=== PATIENT | female | born 1960 | race African-American/Black ===

== ENCOUNTER 2016-06-13 18:31 | Inpatient (IN) | payer MEDICARE, OTHER ==
[~2016-06-13] VITALS: Ht 185.4 cm; Wt 190.5 kg
[~2016-06-13 18:31] MED LIST: ACETAMINOPHEN-1 EAC1 ORAL; ACETAMINOPHEN500 M5 PO; AMBIEN5 MG ORAL; ASCORBIC ACID500 MG ORAL; AUGMENTIN 875-1 EAC1 ORAL; BENAZEPRIL HCL20 MG ORAL; CEFEPIME-D1 GM/50 ML IVPB; CEFEPIME-D2 GM/50 ML IVPB; CIPROFLOXACIN500 M2 ORAL; CLINDAMYCIN HC150 MG ORAL; CLINDAMYCIN HC300 MG ORAL; COLACE100 MG ORAL; CYCLOBENZAPRINE10 MG ORAL; DILAUDID 22 MG/1 ML IVP; DILAUDID2 MG IVP; DOCUSATE SODIU100 MG ORAL; DOXYCYCLINE MO100 MG ORAL; FERROUS SULFAT325 M2 ORAL; FLAGYL500 MG ORAL; FUROSEMIDE20 M1 ORAL; HYDROCHLOROTHIA25 MG ORAL; HYDROCODON-ACE1 EA19 PO; HYDROMORPHO2 MG/1 M2 IV; IBUPROFEN600 MG ORAL; INVANZ1 GM IVPB; LEVAQUIN500 MG ORAL; MEROPENEM1 GM IV; METRONIDAZ500 MG/100 IVPB; MILK OF MA400 MG/51 ORAL; NORCO1 E1 ORAL; PERCOCET 5-3251 EACH ORAL; PROTONIX40 MG ORAL; SALINE 10ML FLU10 ML IVF; TYLENOL WITH C1 EAC2 ORAL; TYLENOL650 MG/20. ORAL; ULORIC40 MG ORAL; VANCO 1 GR1 GM/250 M IV; VANCOMYCIN1 GM IV; VANCOMYCIN1 GM IVPB; VANCOMYCIN1 GM/2001 IV; VANCOMYCIN1 GM/2502 IVPB; VICODIN 5-3001 EACH ORAL; VICODIN 5-5001 EACH PO; XARELTO10 MG ORAL; ZOFRAN 4 MG4 MG/2 ML IV; ZOSYN3.375 GM IVPB
[2016-06-13 18:58] VITALS: BP 118/83
[2016-06-13 20:08] VITALS: BP 113/79
[2016-06-13 21:34] LABS: BASOPHILS % (AUTO) 1.6 % (0.0-2.0); EOSINOPHILS % (AUTO) 0.3 % (0.0-3.0); LYMPHOCYTES % (AUTO) 16.4 % (20.0-45.0); MEAN CORPUSCULAR HEMOGLOBIN 25.8 PG (27.0-31.0); MEAN CORPUSCULAR HGB CONC 31.1 G/DL (32.0-36.0); MEAN CORPUSCULAR VOLUME 83 FL (80-99); MEAN PLATELET VOLUME 6.9 FL (6.5-10.1); MONOCYTES % (AUTO) 6.7 % (1.0-10.0); PLATELET COUNT 270 K/UL (150-450); RED BLOOD COUNT 4.46 M/UL (4.20-5.40); RED CELL DISTRIBUTION WIDTH 14.7 % (11.6-14.8); WHITE BLOOD COUNT 14.5 K/UL (4.8-10.8)
[2016-06-13 21:44] LABS: INR 1.1 (0.9-1.1); PROTHROMBIN TIME 11.3 SEC (9.30-11.50)
[2016-06-13 21:52] LABS: ALANINE AMINOTRANSFERASE 9 U/L (3-33); ANION GAP 15 (5-15); ASPARTATE AMINO TRANSFERASE 17 U/L (5-40); CARBON DIOXIDE 24 mEQ/L (20-30); CHLORIDE 95 mEQ/L (98-107); CREATININE 0.6 mg/dL (0.5-0.9); GLOMERULAR FILTRATION RATE > 60 mL/min (>60); SODIUM 134 mEQ/L (135-145); TOTAL PROTEIN 7.5 g/dL (6.6-8.7)
--- NOTE | 2016-06-13 21:52 | Emergency Room Report ---
History of Present Illness General Chief Complaint: Chest Pain Source: Patient Present Illness HPI 55 YO F with known history of DVT on Xarelto c/o left sided pleuritic "heavy" type chest pain radiating down left arm for 2 days. Denies fever/chills, cough , abd pain, SOB. Had CT for PE 2-3 years ago which she said was negative. Denies history of DM, HLD. Denies smoking, ETOH, drug use. Patient on 2 PO abx for left lower extremity cellulitis. Keflex and another one she cant remember name. Has daily VNS for wound dressing change of left lower leg. Denies weeping/pus from left foot. Allergies: Coded Allergies: SULFA (SULFONAMIDE ANTIBIOTICS) (Unverified Allergy, Unknown, 05/02/15) allergy history per Dr. Campbell Patient History Past Medical History: other - DVT Past Surgical History: none Pertinent Family History: none Social History: Denies: alcohol use, drug use, smoking Now: No Immunizations: UTD Reviewed Nursing Documentation: PMH: Agreed, PSxH: Agreed Nursing Documentation-PMH Hx Cardiac Problems: No - Bilat DVT Hx Hypertension: Yes Hx Asthma: Yes - Childhood Hx Cancer: No Hx Gastrointestinal Problems: Yes Hx Neurological Problems: No Review of Systems All Other Systems: negative except mentioned in HPI Physical Exam Vital Signs Date Time Temp Pulse Resp B/P Pulse Ox O2 Delivery O2 Flow Rate FiO2 06/13/16 18:37 97.5 84 15 118/83 98 Room Air Sp02 EP Interpretation: reviewed, normal General Appearance: normal inspection, well appearing, no apparent distress, alert, GCS 15, non-toxic, obese Head: normocephalic, atraumatic Eyes: bilateral eye EOMI, bilateral eye PERRL ENT: normal ENT inspection, hearing grossly normal, normal voice Neck: normal inspection, full range of motion, supple, no bony tend Respiratory: normal inspection, lungs clear, normal breath sounds, no respiratory distress, no retraction, no wheezing Cardiovascular #1: normal peripheral pulses, regular rate, rhythm, no edema Gastrointestinal: normal inspection, normal bowel sounds, non tender, soft, no guarding, no hernia Genitourinary: no CVA tenderness Musculoskeletal: normal inspection, back normal, normal range of motion, Stefan' s Sign negative, other - Bilateral lower extremities: Non pitting edema. No appreciable wamrth or swelling to feet/legs. No erythema. Neurologic: normal inspection, alert, oriented x3, responsive, director of recreation therapy III-XII nml as tested, motor strength/tone normal, speech normal Psychiatric: normal inspection, judgement/insight normal, mood/affect normal Skin: normal inspection, normal color, no rash Lymphatic: normal inspection Medical Decision Making Diagnostic Impression: Primary Impression: Chest pain Qualified Codes: R07.1 - Chest pain on breathing ER Course 55 YO F with pleuritic chest pain for 2 days. VSS. Afebrile. Not hypoxic ECG is NSR. No ischemia. Low suspicion for ACS but will check serial troponin Patient needs CTA to r/o PE however exceeds weight requirement of our CT Scanner per tech report to me Patient will have to be admitted for VQ scan. Will HOLD on empiric tx for PE with other AC since taking Xarelto Labs: Leuks 14k, possibly d/t cellulitis? INR 1.1 [address]rop[address] 0[address] Endorsed [address] Dr Marcus Montilla as ID consult for known cellulitis Dr Holguin to admit. Tele bed at 1038pm EKG Diagnostic Results Rate: normal Rhythm: NSR ST Segments: no acute changes ASA given to the pt in ED: No Rhythm Strip Diag. Results EP Interpretation: yes Rate: 87 Rhythm: NSR, no PVC's, no ectopy Chest X-Ray Diagnostic Results EP Interpretation: Yes Findings: no consolidation, no effusion, no pneumothorax, no acute cardiopulmonary disease Number of Views: 1 Last Vital Signs Date Time Temp Pulse Resp B/P Pulse Ox O2 Delivery O2 Flow Rate FiO2 06/13/16 20:08 98.4 77 15 113/79 98 Room Air Status: improved Disposition: ADMITTED INPATIENT Condition: Serious Referrals: DENISE CAMPBELL (PCP) NEELIMA YADAV M.D. Jun 13, 2016 21:52
[2016-06-13 21:53] LABS: ALBUMIN/GLOBULIN RATIO 0.8 (1.0-2.7); HEMOLYSIS 34
[2016-06-13 22:12] VITALS: BP 120/77
[2016-06-13 22:15] LABS: TROPONIN I < 0.30 ng/mL (<=0.30)
[2016-06-13 22:16] LABS: CKMB 2.5 ng/mL (< 3.8)
[2016-06-13 23:50] VITALS: BP 98/65
[2016-06-14 01:46] VITALS: BP 107/65
[2016-06-14 04:00] VITALS: BP 105/67
[2016-06-14 08:13] VITALS: BP 134/63
--- NOTE | 2016-06-14 11:07 | History & Physical ---
History and Physical History & Physicial Dictated for Int Med no. [id number]. JO SCHMID Jun 14, 2016 11:07
[2016-06-14 12:00] VITALS: BP 135/73
[2016-06-14] MEDS: metroNIDAZOLE 500mg tab ORAL SCH ×2 (13:21→22:13)
[2016-06-14] MEDS ORDERED: Vancomycin 2gm/D5W 550ml IVPB ONE ×2 (14:00)
[2016-06-14 14:13] LABS: BASOPHILS % (AUTO) 1.1 % (0.0-2.0); EOSINOPHILS % (AUTO) 0.7 % (0.0-3.0); LYMPHOCYTES % (AUTO) 18.1 % (20.0-45.0); MEAN CORPUSCULAR HEMOGLOBIN 25.2 PG (27.0-31.0); MEAN CORPUSCULAR HGB CONC 30.9 G/DL (32.0-36.0); MEAN CORPUSCULAR VOLUME 82 FL (80-99); MEAN PLATELET VOLUME 7.3 FL (6.5-10.1); NEUTROPHILS % (AUTO) 73.1 % (45.0-75.0); PLATELET COUNT 279 K/UL (150-450); RED BLOOD COUNT 4.49 M/UL (4.20-5.40); RED CELL DISTRIBUTION WIDTH 14.6 % (11.6-14.8); WHITE BLOOD COUNT 10.7 K/UL (4.8-10.8)
--- NOTE | 2016-06-14 14:17 | Cardiology Report ---
APPROVED REPORT EKG Measurement Heart [id number] Normal sinus rhythm Normal ECG
[2016-06-14 14:35] LABS: ALANINE AMINOTRANSFERASE 9 U/L (3-33); ALBUMIN/GLOBULIN RATIO 0.9 (1.0-2.7); ANION GAP 13 (5-15); ASPARTATE AMINO TRANSFERASE 15 U/L (5-40); CALCIUM 9.2 mg/dL (8.6-10.2); CARBON DIOXIDE 28 mEQ/L (20-30); CHLORIDE 96 mEQ/L (98-107); CREATININE 0.7 mg/dL (0.5-0.9); GLOMERULAR FILTRATION RATE > 60 mL/min (>60); HEMOLYSIS 3; POTASSIUM 3.7 mEQ/L (3.4-4.9); SODIUM 137 mEQ/L (135-145); TOTAL PROTEIN 7.3 g/dL (6.6-8.7)
[2016-06-14 14:57] LABS: INR 1.1 (0.9-1.1); PROTHROMBIN TIME 10.9 SEC (9.30-11.50)
[2016-06-14 16:00] VITALS: BP 110/76
--- NOTE | 2016-06-14 18:37 | History and Physical Report ---
DATE OF ADMISSION: 06/13/2016 CHIEF COMPLAINT: The patient is a 55-year-old, -[place]i female who presented with a chief complaint of chest pain. HISTORY OF PRESENT ILLNESS: One and half days prior to admission, the patient states she began to have substernal chest pain. Chest pain has been constant. The patient states it is sharp. The patient states it now radiates to the left shoulder and to the left back. The patient presented to [facility] emergency room. The patient was admitted for chest pain to rule out acute coronary syndrome. Of note, the patient has a history of chronic cellulitis to bilateral lower extremities. The patient was on Levaquin recently. The patient states she finished Levaquin about three days ago. The patient complains of continued pain and swelling of the left leg. The patient is also admitted for cellulitis of the left leg. REVIEW OF SYSTEMS: Constitutional: The patient denies weight loss or weight gain. The patient denies fevers or chills. HEENT: The patient denies ear or throat pain. The patient denies headache. Cardiovascular: The patient complains of chest pain as above. The patient denies palpitations. Chest: The patient denies wheezes or shortness of breath. Abdominal: The patient denies nausea, vomiting, diarrhea, or constipation. Genitourinary: The patient denies dysuria or increased frequency of urination. Neuromuscular: The patient complains of chest pain as above. The patient denies generalized weakness or seizures. PAST MEDICAL HISTORY: Significant for, 1. Hypertension. 2. Bilateral lower extremity deep venous thrombosis, on Xarelto. 3. Chronic pain syndrome. 4. History of leg cellulitis as above. PAST SURGICAL HISTORY: The patient denies. CURRENT MEDICATIONS: 1. Tylenol No. 3 one tablet p.o. q.4 h. p.r.n. 2. Benazepril 20 mg one tablet p.o. daily. 3. Uloric 40 mg one tablet p.o. daily. 4. Lasix 20 mg one tablet p.o. daily. 5. Hydrochlorothiazide 25 mg one tablet p.o. daily. 6. Xarelto 20 mg one tablet p.o. daily. ALLERGIES: Sulfa. SOCIAL HISTORY: The patient is . The patient lives alone. The patient denies tobacco or alcohol use. The patient is disabled. PHYSICAL EXAMINATION: VITAL SIGNS: Temperature 97.7 degrees, pulse 89, blood pressure 105/67, and respirations 16. GENERAL: The patient is obese, well-developed, well-nourished, -Israeli female, in no apparent distress. HEENT: Eyes, pupils are equal and responsive to light and accommodation. Extraocular movements are intact. NECK: Supple without lymphadenopathy. CHEST: Lungs are clear to auscultation bilaterally without wheezes or rales. CARDIOVASCULAR: Regular rhythm and rate. S1 and S2 normal without murmurs, rubs, or gallops. ABDOMEN: Soft, nontender, and nondistended. Positive bowel sounds. No evidence of hepatosplenomegaly. Currently, no rebound or guarding noted. EXTREMITIES: Presence of excoriations on the left lateral calf. The left calf is swollen when compared to the right. There is trace edema on the left calf when compared to the right. RECTAL: Refused. GENITAL: Refused. NEUROLOGICAL: Cranial nerves II through XII are grossly intact without focal deficits. Motor strength is 5/5 bilaterally. Deep tendon reflexes are 2+ plantar. LABORATORY DATA: WBC elevated at 14.5, hemoglobin 11.5, hematocrit 37.0, and platelets 270,000. Sodium 134, potassium 4.0, chloride 95, CO2 24, BUN 10, creatinine 0.6, and glucose 88. A chest x-ray is pending. A V/Q scan is pending to rule out pulmonary embolism. ASSESSMENT: This is a 55-year-old, -Israeli female. 1. Chest pain. 2. Left leg cellulitis. 3. Hypertension. 4. Deep venous thrombosis of the left leg. 5. Chronic pain syndrome. 6. Obesity. 7. Leukocytosis. TREATMENT: 1. Chest pain. A Cardiology consultation is pending with Dr. Vladislav Kennedy. A Cardiolite stress test is pending. Serial troponin level will be done. Chest pain is concerning for acute coronary syndrome versus pulmonary embolism. Await V/Q scan and Cardiolite stress test at above. 2. Left leg cellulitis. An Infectious Disease consultation is pending with Dr. Javed. We will follow recommendations of Dr. Javed. The patient has recently been on Levaquin orally. The patient will need to be on a different antibiotic for left leg cellulitis. We will follow recommendations of Infectious Disease. 3. Hypertension. Continue benazepril, hydrochlorothiazide, and Lasix as above. 4. Deep venous thrombosis of the left leg. Continue Xarelto as above. 5. Chronic pain syndrome. The patient is currently receiving intravenous Dilaudid for pain. 6. Obesity. 7. Leukocytosis, probably secondary to cellulitis above. Trever Holguin M.D. DR: LEELEE JOB#: [id number] CC:
--- NOTE | 2016-06-14 19:44 | Cardiology Progress Note ---
Assessment/Plan Assessment/Plan The patient is seen and examined, full consult note will be dictated. Objective Last 24 Hour Vital Signs Date Time Temp Pulse Resp B/P Pulse Ox O2 Delivery O2 Flow Rate FiO2 06/14/16 16:00 97.7 78 18 110/76 98 Room Air 06/14/16 14:20 97.0 06/14/16 12:00 97.0 75 20 135/73 99 Room Air 06/14/16 08:13 97.5 80 20 134/63 95 Room Air 06/14/16 08:00 62 06/14/16 04:00 97.7 89 16 105/67 97 Room Air 06/14/16 02:30 81 16 108/65 100 Room Air 06/14/16 01:46 98.2 81 16 107/65 100 Room Air 06/13/16 23:50 98.2 81 15 98/65 100 Room Air 06/13/16 22:12 98.0 80 18 120/77 99 Room Air 06/13/16 20:08 98.4 77 15 113/79 98 Room Air Intake and Output 06/13/16 06/14/16 18:59 06:59 Intake Total 0 ml Output Total 400 ml Balance 0 ml -400 ml Intake Oral 0 ml Output Urine Total 400 ml # Voids 1 Laboratory Tests Test 06/13/16 21:13 06/14/16 13:50 06/14/16 14:00 White Blood Count 14.5 K/UL (4.8-10.8) H 10.7 K/UL (4.8-10.8) Red Blood Count 4.46 M/UL (4.20-5.40) 4.49 M/UL (4.20-5.40) Hemoglobin 11.5 G/DL (12.0-16.0) L 11.3 G/DL (12.0-16.0) L Hematocrit 37.0 % (37.0-47.0) 36.6 % (37.0-47.0) L Mean Corpuscular Volume 83 FL (80-99) 82 FL (80-99) Mean Corpuscular Hemoglobin 25.8 PG (27.0-31.0) L 25.2 PG (27.0-31.0) L Mean Corpuscular Hemoglobin Concent 31.1 G/DL (32.0-36.0) L 30.9 G/DL (32.0-36.0) L Red Cell Distribution Width 14.7 % (11.6-14.8) 14.6 % (11.6-14.8) Platelet Count 270 K/UL (150-450) 279 K/UL (150-450) Mean Platelet Volume 6.9 FL (6.5-10.1) 7.3 FL (6.5-10.1) Neutrophils (%) (Auto) 75.0 % (45.0-75.0) 73.1 % (45.0-75.0) Lymphocytes (%) (Auto) 16.4 % (20.0-45.0) L 18.1 % (20.0-45.0) L Monocytes (%) (Auto) 6.7 % (1.0-10.0) 7.0 % (1.0-10.0) Eosinophils (%) (Auto) 0.3 % (0.0-3.0) 0.7 % (0.0-3.0) Basophils (%) (Auto) 1.6 % (0.0-2.0) 1.1 % (0.0-2.0) Prothrombin Time 11.3 SEC (9.30-11.50) 10.9 SEC (9.30-11.50) Prothromb Time International Ratio 1.1 (0.9-1.1) 1.1 (0.9-1.1) Activated Partial Thromboplast Time 29 SEC (23-33) Sodium Level 134 mEQ/L (135-145) L 137 mEQ/L (135-145) Potassium Level 4.0 mEQ/L (3.4-4.9) 3.7 mEQ/L (3.4-4.9) Chloride Level 95 mEQ/L (98-107) L 96 mEQ/L (98-107) L Carbon Dioxide Level 24 mEQ/L (20-30) 28 mEQ/L (20-30) Anion Gap 15 (5-15) 13 (5-15) Blood Urea Nitrogen 10 mg/dL (7-23) 10 mg/dL (7-23) Creatinine 0.6 mg/dL (0.5-0.9) 0.7 mg/dL (0.5-0.9) Estimat Glomerular Filtration Rate > 60 mL/min (>60) > 60 mL/min (>60) Glucose Level 88 mg/dL (74-106) 111 mg/dL (74-106) H Calcium Level 9.0 mg/dL (8.6-10.2) 9.2 mg/dL (8.6-10.2) Total Bilirubin 0.3 mg/dL (0.0-1.2) 0.3 mg/dL (0.0-1.2) Aspartate Amino Transf (AST/SGOT) 17 U/L (5-40) 15 U/L (5-40) Alanine Aminotransferase (ALT/SGPT) 9 U/L (3-33) 9 U/L (3-33) Alkaline Phosphatase 60 U/L (35-104) 64 U/L (35-104) Total Creatine Kinase 205 U/L (26-140) H Creatine Kinase MB 2.5 ng/mL (< 3.8) Creatine Kinase MB Relative Index 1.2 Troponin I < 0.30 ng/mL (<=0.30) Total Protein 7.5 g/dL (6.6-8.7) 7.3 g/dL (6.6-8.7) Albumin 3.5 g/dL (3.5-5.2) 3.5 g/dL (3.5-5.2) Globulin 4.0 g/dL 3.8 g/dL Albumin/Globulin Ratio 0.8 (1.0-2.7) L 0.9 (1.0-2.7) L LALO WILL Jun 14, 2016 19:44
[2016-06-14 20:00] VITALS: BP 90/45
--- NOTE | 2016-06-14 22:13 | Infectious Diseases Prog Note ---
Assessment/Plan Assessment/Plan Full consult dictated: A) 1) left leg cellulitis - hx of gram negative, r/o mrsa, r/o strep 2) leukocytosis, ? c.diff., no diarrhea 3) pleuritic chest pain - ? cap, ? PE, ? coronary disease 4) obesity, dm, allergies - sulfa, pain mgt, hx dvt P) 1) vancomycin, cefepime and flagyl 2) check labs, c.diff. if has diarrhea 3) check chest x-ray 4) further w/u and treatment per Dr. Holguin 5) thank you Subjective Allergies: Coded Allergies: SULFA (SULFONAMIDE ANTIBIOTICS) (Unverified Allergy, Unknown, 05/02/15) allergy history per Dr. Jones Objective Vital Signs Last 24 Hour Vital Signs Date Time Temp Pulse Resp B/P Pulse Ox O2 Delivery O2 Flow Rate FiO2 06/14/16 20:00 97.7 81 18 90/45 99 Room Air 06/14/16 16:00 97.7 78 18 110/76 98 Room Air 06/14/16 14:20 97.0 06/14/16 12:00 97.0 75 20 135/73 99 Room Air 06/14/16 08:13 97.5 80 20 134/63 95 Room Air 06/14/16 08:00 62 06/14/16 04:00 97.7 89 16 105/67 97 Room Air 06/14/16 02:30 81 16 108/65 100 Room Air 06/14/16 01:46 98.2 81 16 107/65 100 Room Air 06/13/16 23:50 98.2 81 15 98/65 100 Room Air 06/13/16 22:12 98.0 80 18 120/77 99 Room Air Height (Feet): 6 Height (Inches): 1.00 Weight (Pounds): 420 Laboratory Tests Test 06/14/16 13:50 06/14/16 14:00 White Blood Count 10.7 K/UL (4.8-10.8) Red Blood Count 4.49 M/UL (4.20-5.40) Hemoglobin 11.3 G/DL (12.0-16.0) L Hematocrit 36.6 % (37.0-47.0) L Mean Corpuscular Volume 82 FL (80-99) Mean Corpuscular Hemoglobin 25.2 PG (27.0-31.0) L Mean Corpuscular Hemoglobin Concent 30.9 G/DL (32.0-36.0) L Red Cell Distribution Width 14.6 % (11.6-14.8) Platelet Count 279 K/UL (150-450) Mean Platelet Volume 7.3 FL (6.5-10.1) Neutrophils (%) (Auto) 73.1 % (45.0-75.0) Lymphocytes (%) (Auto) 18.1 % (20.0-45.0) L Monocytes (%) (Auto) 7.0 % (1.0-10.0) Eosinophils (%) (Auto) 0.7 % (0.0-3.0) Basophils (%) (Auto) 1.1 % (0.0-2.0) Sodium Level 137 mEQ/L (135-145) Potassium Level 3.7 mEQ/L (3.4-4.9) Chloride Level 96 mEQ/L (98-107) L Carbon Dioxide Level 28 mEQ/L (20-30) Anion Gap 13 (5-15) Blood Urea Nitrogen 10 mg/dL (7-23) Creatinine 0.7 mg/dL (0.5-0.9) Estimat Glomerular Filtration Rate > 60 mL/min (>60) Glucose Level 111 mg/dL (74-106) H Calcium Level 9.2 mg/dL (8.6-10.2) Total Bilirubin 0.3 mg/dL (0.0-1.2) Aspartate Amino Transf (AST/SGOT) 15 U/L (5-40) Alanine Aminotransferase (ALT/SGPT) 9 U/L (3-33) Alkaline Phosphatase 64 U/L (35-104) Total Protein 7.3 g/dL (6.6-8.7) Albumin 3.5 g/dL (3.5-5.2) Globulin 3.8 g/dL Albumin/Globulin Ratio 0.9 (1.0-2.7) L Prothrombin Time 10.9 SEC (9.30-11.50) Prothromb Time International Ratio 1.1 (0.9-1.1) Current Medications Medications (Trade) Dose Ordered Sig/Key Route PRN Reason Start Time Stop Time Status Last Admin Dose Admin Benazepril HCl (Lotensin) 20 mg DAILY ORAL 2/2/17 09:00 07/15/16 08:59 Cefepime HCl/ Dextrose (Maxipime/D5W) 50 ml @ 100 mls/hr Q12HR@0100,1300 IVPB 06/14/16 13:00 06/21/16 12:59 06/14/16 13:21 Dextrose (Dextrose 50%) STAT PRN IV Hypoglycemia 06/14/16 04:15 07/14/16 04:14 Furosemide (Lasix) 20 mg DAILY ORAL 06/15/16 09:00 07/15/16 08:59 Hydromorphone HCl (Dilaudid) 2 mg Q4H PRN IVP Severe Pain (Pain Scale 7-10) 06/14/16 05:15 06/21/16 05:14 06/14/16 13:22 Metronidazole 500 mg 500 mg EVERY 8 HOURS ORAL 06/14/16 12:00 06/21/16 11:59 06/14/16 13:21 Non-Formulary Medication (Non-Formulary Med) 1 ea DAILY ORAL 06/15/16 09:00 07/15/16 08:59 UNV Rivaroxaban 20 mg 20 mg DAILY ORAL 06/15/16 09:00 07/15/16 08:59 Vancomycin HCl (Vanco rx to dose) 1 ea DAILY PRN MISC Per rx protocol 06/14/16 11:15 07/14/16 11:14 Vancomycin HCl/ Dextrose (Vancomycin/D5W) 325 ml @ 162.5 mls/ hr Q12HR@0200,1400 IVPB 06/15/16 02:00 06/20/16 01:59 ASTER HACKETT Jun 14, 2016 22:13
[2016-06-15] MEDS: Vancomycin 1.5 GM in D5W 325 ML IVPB SCH ×2 (03:27→14:48)
--- NOTE | 2016-06-15 05:57 | Consultation ---
DATE OF CONSULTATION: 06/14/2016 CARDIOLOGY CONSULTATION REFERRING PHYSICIAN: Trever Holguin M.D. REASON FOR CONSULTATION: Management of chest pain. HISTORY OF PRESENT ILLNESS: This patient is a very unfortunate 55-year-old, morbidly obese, -[place] female, who presents to the hospital with complaints of chest pain in the left precordial area, described as pleuritic, worse with inspiration, at times sharp and at times pressure-like radiating down to the left arm, but no nausea or vomiting and shortness of breath. No diaphoresis. The patient has been having pain for the past few days. Baseline initial evaluation in the emergency department included blood pressure of 118/93 mmHg and heart rate of 84. A 12-lead electrocardiogram with normal sinus rhythm with no evidence of ST and T-wave abnormalities. The patient was admitted to telemetry for further evaluation and management. PAST MEDICAL HISTORY: 1. DVT. 2. Hypertension. 3. Chronic pain syndrome. 4. History of leg cellulitis. PAST SURGICAL HISTORY: None. MEDICATIONS: 1. Tylenol No. 3 one tablet p.o. q. 4h. p.r.n. pain. 2. Benazepril 20 mg p.o. daily. 3. Uloric 40 mg p.o. daily. 4. Lasix 20 mg p.o. daily. 5. Hydrochlorothiazide 25 mg p.o. daily. 6. Xarelto 20 mg p.o. daily. REVIEW OF SYSTEMS: HEENT: Denies any headache, diplopia, or blurred vision. Constitutional: Denies any fever, chills, weight loss, night sweats, or weight gain. Cardiovascular: Complains of chest pain as mentioned above. Denies any PND, orthopnea, leg swelling, or palpitations. Pulmonary: Denies any cough, hemoptysis, or wheezing. Gastrointestinal: Denies any nausea, vomiting, diarrhea, constipation, abdominal pain, or GI bleed. Genitourinary: Denies any hematuria, dysuria, or incontinence. Neurology: Denies any motor dysfunction, sensory deficit, or altered speech. ALLERGIES: Sulfa. SOCIAL HISTORY: She is and lives alone. Denies any tobacco, alcohol, or illicit drug use. She is disabled. PHYSICAL EXAMINATION: VITAL SIGNS: Blood pressure was 105/67, respirations 16, pulse of 89, temperature 97.7 degrees of Fahrenheit. GENERAL: The patient is a very unfortunate 55-year-old female, who is comfortable in no apparent respiratory distress. HEENT: Atraumatic and normocephalic. Anicteric. Pupils are equal, round, and reactive to light and accommodation. Extraocular muscles are intact. NECK: JVP cannot be evaluated. Bilateral carotid upstrokes 2+. No carotid bruit. LUNGS: Clear to auscultation bilaterally. CVS: Normal S1 and S2. Regular rate and rhythm. No murmurs, gallops, or rubs. PMI is at fourth intercostal space at left midclavicular line. ABDOMEN: Soft, nontender, and nondistended. No hepatosplenomegaly. Positive bowel sounds. EXTREMITIES: There is swelling of the left calf with competitive running. edema on the left calf was also noticed. LABORATORY DATA: WBC was 14.5, hemoglobin 11.5, hematocrit 37.0, and platelet count 270,000. Sodium 134, potassium is 4.0, chloride 95, bicarbonate 24, BUN of 10, creatinine 0.6, glucose is 88, and calcium is 9.0. Troponin I less than 0.3. X-RAY: Chest x-ray not available at this time. A 2D echocardiography from 12/02/2015 shows normal LV systolic function with LVEF of 55%. IVC of 1.9. Mild tricuspid regurgitation with mild pulmonary hypertension and right ventricular systolic pressure at 40 mmHg. ASSESSMENT AND PLAN: The patient is a very unfortunate 55-year-old female, who is seen in Cardiology consultation at the request of Dr. Holguin. 1. Atypical chest pain. Her risk factors for coronary artery disease are hypertension and diabetes. We will speak to the patient in terms of the future exercise stress test. 2. Chest pain. A 12-lead electrocardiogram shows no evidence of ST and T-wave abnormalities. over the patient's risk factors, we will discuss with the nuclear medicine department as far as the weight limit for . If approved, we will proceed with Persantine Cardiolite study to rule out obstructive coronary artery disease. 3. History of diabetes mellitus. 4. History of hypertension. 5. Deep venous thrombosis, on Xarelto. I would like to thank Dr. Holguin for allowing me to participate in the care of this patient. Vladislav Kennedy M.D. DR: ALLISON JOB#: [id number] CC:
[2016-06-15] MEDS: metroNIDAZOLE 500mg tab ORAL SCH ×3 (06:23→22:24)
--- NOTE | 2016-06-15 08:17 | Diagnostic Imaging Report ---
Indication: PAIN Technique: One view of the chest Comparison: 01/05/2016 Findings: Body habitus limits evaluation. Lungs and pleural spaces are clear. Heart size is normal. No significant change Impression: No acute process
[2016-06-15 08:36] VITALS: BP 133/68
[2016-06-15] MEDS: Benazepril 10mg tab ORAL SCH (09:03)
[2016-06-15] MEDS: Xarelto 10mg tab ORAL SCH (09:03)
[2016-06-15 10:09] LABS: BASOPHILS % (AUTO) 0.9 % (0.0-2.0); EOSINOPHILS % (AUTO) 1.6 % (0.0-3.0); LYMPHOCYTES % (AUTO) 13.5 % (20.0-45.0); MEAN CORPUSCULAR HEMOGLOBIN 25.6 PG (27.0-31.0); MEAN CORPUSCULAR HGB CONC 31.3 G/DL (32.0-36.0); MEAN CORPUSCULAR VOLUME 82 FL (80-99); MEAN PLATELET VOLUME 7.4 FL (6.5-10.1); PLATELET COUNT 252 K/UL (150-450); RED BLOOD COUNT 4.36 M/UL (4.20-5.40); RED CELL DISTRIBUTION WIDTH 14.7 % (11.6-14.8); WHITE BLOOD COUNT 9.7 K/UL (4.8-10.8)
[2016-06-15 10:26] LABS: TROPONIN I < 0.30 ng/mL (<=0.30)
--- NOTE | 2016-06-15 10:48 | Consultation ---
DATE OF CONSULTATION: INFECTIOUS DISEASE CONSULTATION: ATTENDING PHYSICIAN: Trever Holguin M.D. HISTORY OF PRESENT ILLNESS: This is a 55-year-old female who comes into [facility] with left leg cellulitis. The patient also had pleuritic chest pain and has been worked up by Cardiology for acute coronary syndrome. The patient also has been worked up for pulmonary embolism for the history of DVT with V/Q scan. Infectious Disease consultation was requested for further antibiotic management. This patient with left leg cellulitis and also leukocytosis. The patient has history of . She also has risk for C. diff. She does not have any significant diarrhea at this time. Case was communicated with ER physician yesterday and discussed with Dr. Holguin. MAR was noted. Orders were noted. Notes were reviewed. The patient requested antibiotics pending workup. PAST MEDICAL HISTORY: The patient has a past medical history of DVT of lower extremities, history of recurrent cellulitis including gram-negative cellulitis and the patient risk for MRSA cellulitis. She has history of hypertension. She has history of chronic pain syndrome. No history of diabetes. She has history of obesity. Please see past medical in medical order. MEDICATIONS: Upon reviewing the MAR, the patient on the following medications. She is on Lotensin and benazepril. She is on furosemide, Lasix, Xarelto, vancomycin, cefepime, and Flagyl. She is on high dose of Dilaudid. Please see medication in medical order. ALLERGIES: Include sulfa. SOCIAL HISTORY: Negative for smoking, alcohol, or drug abuse. FAMILY HISTORY: Noncontributory . REVIEW OF SYSTEMS: See HPI for review of systems. Constitutional: She has generalized fatigue and weakness. No fever, chills, night sweats, or weight loss . Head And Neck: No thrush, dysphagia, sinus tenderness. Cardiac: She does have pleuritic chest pain. GI: No nausea, vomiting, or diarrhea. : No dysuria or frequency. Pulmonary: No significant shortness of breath, cough, or sputum production. Skin: No rash or itching. Extremities: Left foot pain and swelling. Neurologic: No seizures. PHYSICAL EXAMINATION: VITAL SIGNS: Temperature 97.7 degrees, pulse rate 81, respiratory rate 18, blood pressure 90/45, and saturation 99%. GENERAL: Alert, responsive, and oriented x3, in no acute distress. HEENT: Head and Neck: Oral exam, no thrush. Eye exam, no icterus. Neck is supple. No JVD. No sinus tenderness. Normocephalic. No facial droop. No neck stiffness. HEART: Regular. No gallop or murmur. No friction or rub. LUNGS: Clear bilaterally. No rhonchi or rales. ABDOMEN: Soft. Positive bowel sounds. Nontender. SKIN: No rash or dermatitis. MUSCULOSKELETAL: No evidence of . EXTREMITIES: Lower extremity exam, she has pain versus the right leg. PERIPHERAL VASCULAR: No cyanosis or gangrene. RECTAL: Deferred. PELVIC: Deferred. GENITOURINARY: No Shah. LINE: Line site is without phlebitis. NEUROLOGIC: Intact and nonfocal. Alert and oriented x3. LABORATORY AND DIAGNOSTIC DATA: As follows: White count on admission 14.5 and hemoglobin 11.5. Creatinine is 0.7. Chest x-ray is pending. V/Q scan is pending ER doctor, the chest x-ray is negative. ASSESSMENT AND PLAN: 1. The patient who has left leg cellulitis with leukocytosis. The patient was placed on vancomycin , cefepime, and Flagyl. She also risk for Clostridium difficile for which she has had recent multiple antibiotics cultures for cellulitis for left foot. Continue vancomycin, cefepime, and Flagyl. Check Clostridium difficile. The patient has diarrhea. Also check just to make sure she does not have something like community-acquired pneumonia for pleuritic chest pain. Continue antibiotics Flagyl and check . 2. Pleuritic chest pain workup per Cardiology rule out coronary syndrome. Acute coronary syndrome also rule out. Pulmonary embolism history of lower extremity deep venous thrombosis. 3. Chronic lower extremity deep venous thrombosis. 4. Hypertension. 5. Obesity. 6. Chronic pain syndrome. 7. History of cellulitis gram-negative cellulitis . 8. The patient has anemia . 9. Blood pressure control per primary for hypertension. 10. Allergies to sulfa . 11. Social history is negative. 12. Case discussed with Dr. Holguin. 13. Case discussed with ER physician. 14. Case discussed with the patient . 15. Case discussed with RN. 16. Notes and records were reviewed. Thank you. I will follow. Slim Javed M.D. DR: Marie JOB#: [id number] CC:
[2016-06-15 10:55] LABS: ANION GAP 13 (5-15); CALCIUM 8.6 mg/dL (8.6-10.2); CARBON DIOXIDE 29 mEQ/L (20-30); CHLORIDE 94 mEQ/L (98-107); CREATININE 0.7 mg/dL (0.5-0.9); GLOMERULAR FILTRATION RATE > 60 mL/min (>60); HEMOLYSIS 4; POTASSIUM 3.8 mEQ/L (3.4-4.9); SODIUM 136 mEQ/L (135-145)
--- NOTE | 2016-06-15 11:47 | Diagnostic Imaging Report ---
Indications: Shortness of breath Technique: Portable AP chest Findings: Comparison: 06/13/16 Poor image quality limits evaluation. Cardiac silhouette remains normal in size. Pulmonary vasculature remains within normal limits. Lungs and pleura remain clear. Right upper rib cage deformity again noted. IMPRESSION: No evidence of acute disease, limited as described, unchanged Stable chronic changes as described
[2016-06-15 12:11] VITALS: BP 115/56
[2016-06-15 16:00] VITALS: BP 105/44
--- NOTE | 2016-06-15 18:32 | Cardiology Progress Note ---
Assessment/Plan Assessment/Plan 1. Atypical chest pain, non-ischemic dobutamine stress echo with normal baseline LVEF. 2. Morbid obesity. 3. Hypertension. 4. Bilateral lower extremity deep venous thrombosis, on Xarelto. 5. Chronic pain syndrome. 6. History of leg cellulitis Subjective Subjective Sinus rhythm at 79. Dobutamine stress echo today showed no evidence of myocardial wall ischemia. Objective Last 24 Hour Vital Signs Date Time Temp Pulse Resp B/P Pulse Ox O2 Delivery O2 Flow Rate FiO2 06/15/16 16:00 97.7 81 20 105/44 96 Room Air 06/15/16 12:11 97.0 83 20 115/56 97 Room Air 06/15/16 12:00 121 06/15/16 09:03 133/68 06/15/16 08:36 97.3 80 20 133/68 99 Room Air 06/15/16 08:00 130 06/15/16 04:00 71 06/15/16 00:00 84 06/14/16 22:47 97.7 06/14/16 20:00 97.7 81 18 90/45 99 Room Air 06/14/16 20:00 78 Intake and Output 06/14/16 06/15/16 19:00 07:00 Intake Total 540 ml Balance 540 ml Intake Oral 490 ml IV Total 50 ml # Voids 1 4 2D Echo: LVEF 55%, Mild LVH, RA/RV enlargement, RVSP 49 mmHg, IVC 2.1 cm Laboratory Tests Test 06/15/16 09:50 White Blood Count 9.7 K/UL (4.8-10.8) Red Blood Count 4.36 M/UL (4.20-5.40) Hemoglobin 11.1 G/DL (12.0-16.0) L Hematocrit 35.6 % (37.0-47.0) L Mean Corpuscular Volume 82 FL (80-99) Mean Corpuscular Hemoglobin 25.6 PG (27.0-31.0) L Mean Corpuscular Hemoglobin Concent 31.3 G/DL (32.0-36.0) L Red Cell Distribution Width 14.7 % (11.6-14.8) Platelet Count 252 K/UL (150-450) Mean Platelet Volume 7.4 FL (6.5-10.1) Neutrophils (%) (Auto) 77.0 % (45.0-75.0) H Lymphocytes (%) (Auto) 13.5 % (20.0-45.0) L Monocytes (%) (Auto) 7.0 % (1.0-10.0) Eosinophils (%) (Auto) 1.6 % (0.0-3.0) Basophils (%) (Auto) 0.9 % (0.0-2.0) Sodium Level 136 mEQ/L (135-145) Potassium Level 3.8 mEQ/L (3.4-4.9) Chloride Level 94 mEQ/L (98-107) L Carbon Dioxide Level 29 mEQ/L (20-30) Anion Gap 13 (5-15) Blood Urea Nitrogen 12 mg/dL (7-23) Creatinine 0.7 mg/dL (0.5-0.9) Estimat Glomerular Filtration Rate > 60 mL/min (>60) Glucose Level 126 mg/dL (74-106) H Calcium Level 8.6 mg/dL (8.6-10.2) Troponin I < 0.30 ng/mL (<=0.30) Objective GENERAL: The patient is a very unfortunate 55-year-old female, who is comfortable in no apparent respiratory distress. HEENT: Atraumatic and normocephalic. Anicteric. Pupils are equal, round, and reactive to light and accommodation. Extraocular muscles are intact. NECK: JVP cannot be evaluated. Bilateral carotid upstrokes 2+. No carotid bruit. LUNGS: Clear to auscultation bilaterally. CVS: Normal S1 and S2. Regular rate and rhythm. No murmurs, gallops, or rubs. PMI is at fourth intercostal space at left midclavicular line. ABDOMEN: Soft, nontender, and nondistended. No hepatosplenomegaly. Positive bowel sounds. EXTREMITIES: 1+edema B/L, chronic venous stasis, no clubbing or cyanosis. LAOL WILL Jun 15, 2016 18:32
--- NOTE | 2016-06-15 18:56 | Internal Med Progress Note ---
Subjective Date of Service: Jun 15, 2016 Physician Name Trever Schmid Attending Physician Trever Schmid Current Medications Medications (Trade) Dose Ordered Sig/Key Route PRN Reason Start Time Stop Time Status Last Admin Dose Admin Benazepril HCl (Lotensin) 20 mg DAILY ORAL 06/15/16 09:00 07/15/16 08:59 06/15/16 09:03 Cefepime HCl/ Dextrose (Maxipime/D5W) 50 ml @ 100 mls/hr Q12HR@0100,1300 IVPB 06/14/16 13:00 06/21/16 12:59 06/15/16 02:08 Dextrose (Dextrose 50%) STAT PRN IV Hypoglycemia 06/14/16 04:15 07/14/16 04:14 Furosemide (Lasix) 20 mg DAILY ORAL 06/15/16 09:00 07/15/16 08:59 06/15/16 09:03 Hydromorphone HCl (Dilaudid) 2 mg Q4H PRN IVP Severe Pain (Pain Scale 7-10) 06/14/16 05:15 06/21/16 05:14 06/15/16 13:24 Metronidazole 500 mg 500 mg EVERY 8 HOURS ORAL 06/14/16 12:00 06/21/16 11:59 06/15/16 14:47 Non-Formulary Medication (Non-Formulary Med) 1 ea DAILY ORAL 06/15/16 09:00 07/15/16 08:59 UNV Rivaroxaban 20 mg 20 mg DAILY ORAL 06/15/16 09:00 07/15/16 08:59 06/15/16 09:03 Vancomycin HCl (Vanco rx to dose) 1 ea DAILY PRN MISC Per rx protocol 06/14/16 11:15 07/14/16 11:14 Vancomycin HCl/ Dextrose (Vancomycin/D5W) 325 ml @ 162.5 mls/ hr Q12HR@0200,1400 IVPB 06/15/16 02:00 06/20/16 01:59 06/15/16 14:48 Allergies: Coded Allergies: SULFA (SULFONAMIDE ANTIBIOTICS) (Unverified Allergy, Unknown, 05/02/15) allergy history per Dr. Robert BAUER Limited/Unobtainable: No Constitutional: Reports: no symptoms HEENT: Reports: no symptoms Cardiovascular: Reports: chest pain Respiratory: Reports: no symptoms Gastrointestinal/Abdominal: Reports: no symptoms Genitourinary: Reports: no symptoms Neurologic/Psychiatric: Reports: no symptoms Subjective 55 YO obese F admitted with chest pain. S/P Dobutamine echo today. Objective Last Vital Signs Date Time Temp Pulse Resp B/P Pulse Ox O2 Delivery O2 Flow Rate FiO2 06/15/16 16:00 97.7 81 20 105/44 96 Room Air General Appearance: no apparent distress, alert, obese EENT: PERRL/EOMI, normal ENT inspection Neck: non-tender, normal alignment, supple, normal inspection Cardiovascular: normal peripheral pulses, normal rate, regular rhythm, no gallop/murmur, no JVD Respiratory/Chest: chest wall non-tender, lungs clear, normal breath sounds, no respiratory distress, no accessory muscle use Abdomen: normal bowel sounds, non tender, soft, no organomegaly, no mass Extremities: normal range of motion 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 normal, no motor/sensory deficits Skin: normal pigmentation, warm/dry Laboratory Tests Test 06/15/16 09:50 White Blood Count 9.7 K/UL (4.8-10.8) Red Blood Count 4.36 M/UL (4.20-5.40) Hemoglobin 11.1 G/DL (12.0-16.0) L Hematocrit 35.6 % (37.0-47.0) L Mean Corpuscular Volume 82 FL (80-99) Mean Corpuscular Hemoglobin 25.6 PG (27.0-31.0) L Mean Corpuscular Hemoglobin Concent 31.3 G/DL (32.0-36.0) L Red Cell Distribution Width 14.7 % (11.6-14.8) Platelet Count 252 K/UL (150-450) Mean Platelet Volume 7.4 FL (6.5-10.1) Neutrophils (%) (Auto) 77.0 % (45.0-75.0) H Lymphocytes (%) (Auto) 13.5 % (20.0-45.0) L Monocytes (%) (Auto) 7.0 % (1.0-10.0) Eosinophils (%) (Auto) 1.6 % (0.0-3.0) Basophils (%) (Auto) 0.9 % (0.0-2.0) Sodium Level 136 mEQ/L (135-145) Potassium Level 3.8 mEQ/L (3.4-4.9) Chloride Level 94 mEQ/L (98-107) L Carbon Dioxide Level 29 mEQ/L (20-30) Anion Gap 13 (5-15) Blood Urea Nitrogen 12 mg/dL (7-23) Creatinine 0.7 mg/dL (0.5-0.9) Estimat Glomerular Filtration Rate > 60 mL/min (>60) Glucose Level 126 mg/dL (74-106) H Calcium Level 8.6 mg/dL (8.6-10.2) Troponin I < 0.30 ng/mL (<=0.30) Intake and Output 06/14/16 06/15/16 19:00 07:00 Intake Total 540 ml Balance 540 ml Intake Oral 490 ml IV Total 50 ml # Voids 1 4 Assessment/Plan Problem List: (1) Chronic pain (2) Obesity (3) Deep vein thrombosis (DVT) of left lower extremity Assessment & Plan: Cont xarelto (4) Chest pain Assessment & Plan: S/P dobutamine stress test-See cardiology note. (5) Hypertension Assessment & Plan: Cont benazepril and lasix (6) Left leg cellulitis Assessment & Plan: Cont vanco and cefepime per ID (7) Leukocytosis Assessment & Plan: Resolved on antibiotic. Status: progressing Assessment/Plan Discharge planning. TREVER SCHMID Jun 15, 2016 18:56
[2016-06-15 20:00] VITALS: BP 125/73
[2016-06-15] MEDS ORDERED: DOBUTamine 250mg/250ml Premix IV ONE (20:46)
[2016-06-16] VITALS (7 sets, daily range): BP systolic 100–136; BP diastolic 61–73
[2016-06-16 02:19] LABS: ANION GAP 12 (5-15); CALCIUM 8.6 mg/dL (8.6-10.2); CARBON DIOXIDE 28 mEQ/L (20-30); CHLORIDE 94 mEQ/L (98-107); CREATININE 0.7 mg/dL (0.5-0.9); GLOMERULAR FILTRATION RATE > 60 mL/min (>60); HEMOLYSIS 0; POTASSIUM 3.7 mEQ/L (3.4-4.9); SODIUM 134 mEQ/L (135-145)
[2016-06-16 02:53] LABS: BASOPHILS % (AUTO) 0.8 % (0.0-2.0); LYMPHOCYTES % (AUTO) 16.7 % (20.0-45.0); MEAN CORPUSCULAR HEMOGLOBIN 25.7 PG (27.0-31.0); MEAN CORPUSCULAR HGB CONC 31.7 G/DL (32.0-36.0); MEAN CORPUSCULAR VOLUME 81 FL (80-99); MEAN PLATELET VOLUME 7.6 FL (6.5-10.1); MONOCYTES % (AUTO) 7.3 % (1.0-10.0); NEUTROPHILS % (AUTO) 73.3 % (45.0-75.0); PLATELET COUNT 276 K/UL (150-450); RED BLOOD COUNT 4.28 M/UL (4.20-5.40); RED CELL DISTRIBUTION WIDTH 14.8 % (11.6-14.8); WHITE BLOOD COUNT 11.2 K/UL (4.8-10.8)
[2016-06-16] MEDS: Vancomycin 1.5 GM in D5W 325 ML IVPB SCH ×2 (03:18→14:00)
[2016-06-16] MEDS: metroNIDAZOLE 500mg tab ORAL SCH ×3 (06:14→21:40)
[2016-06-16] MEDS: Benazepril 10mg tab ORAL SCH (08:49)
[2016-06-16] MEDS: Xarelto 10mg tab ORAL SCH (08:49)
[2016-06-16 09:04] LABS: TROPONIN I < 0.30 ng/mL (<=0.30)
--- NOTE | 2016-06-16 12:29 | Infectious Diseases Prog Note ---
Assessment/Plan Assessment/Plan ASSESSMENT AND PLAN: 1. The patient who has left leg cellulitis with leukocytosis, ? c.diff., hx abx , ? uri - vancomycin, cefepime and flagyl - watch labs/cr 2. Pleuritic chest pain workup per primary and cardiology - rule out pulmonary embolism, r/o acute coronary syndrome, hx dvt 3. Chronic lower extremity deep venous thrombosis. 4. Hypertension. 5. Obesity. 6. Chronic pain syndrome. 7. History of gram-negative cellulitis . 8. The patient has anemia . 9. Blood pressure control per primary for hypertension. 10. Allergies to sulfa . 11. Social history is negative. 12. Case discussed with Dr. Holguin. 13. - nv, mar noted 14. Case discussed with the patient . 15. Case discussed with RN. 16. Notes and records were reviewed. Subjective Constitutional: Reports: fatigue, Denies: fever HEENT: Denies: congestion Respiratory: Denies: shortness of breath Cardiovascular: Denies: chest pain Gastrointestinal/Abdominal: Denies: nausea, vomiting Genitourinary: Reports: other - no eaton Neurologic: Denies: headache Psychiatric: Denies: depression Skin: Denies: rash Hematologic: Denies: bleeding Musculoskeletal: Reports: pain - less left leg pain Allergies: Coded Allergies: SULFA (SULFONAMIDE ANTIBIOTICS) (Unverified Allergy, Unknown, 05/02/15) allergy history per Dr. Jones Objective Vital Signs Last 24 Hour Vital Signs Date Time Temp Pulse Resp B/P Pulse Ox O2 Delivery O2 Flow Rate FiO2 06/16/16 08:49 125/66 06/16/16 08:45 97.3 80 20 125/66 100 Room Air 06/16/16 08:00 80 06/16/16 05:03 97.2 81 20 136/73 97 Room Air 06/16/16 04:00 97.2 81 20 136/73 97 Room Air 06/16/16 04:00 85 06/16/16 00:00 74 06/16/16 00:00 97.9 74 20 100/61 99 Room Air 06/15/16 20:00 84 06/15/16 20:00 98.2 77 18 125/73 96 Room Air 06/15/16 16:00 97.7 81 20 105/44 96 Room Air 06/15/16 16:00 84 Height (Feet): 6 Height (Inches): 1.00 Weight (Pounds): 420 General Appearance: no acute distress HEENT: normocephalic, atraumatic, anicteric, mucous membranes moist, PERRL, EOMI, pharynx normal, supple, no JVD Respiratory/Chest: lungs clear, normal breath sounds, no respiratory distress, no accessory muscle use Cardiovascular: normal rate, regular rhythm, no gallop/murmur, no JVD Abdomen: normal bowel sounds, soft, non tender, no organomegaly, non distended Genitourinary: other - no eaton Extremities: no cyanosis, other - left leg softer, still with warmth and swelling Skin: no rash 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5-10.1) Neutrophils (%) (Auto) 73.3 % (45.0-75.0) Lymphocytes (%) (Auto) 16.7 % (20.0-45.0) L Monocytes (%) (Auto) 7.3 % (1.0-10.0) Eosinophils (%) (Auto) 2.0 % (0.0-3.0) Basophils (%) (Auto) 0.8 % (0.0-2.0) Sodium Level 134 mEQ/L (135-145) L Potassium Level 3.7 mEQ/L (3.4-4.9) Chloride Level 94 mEQ/L (98-107) L Carbon Dioxide Level 28 mEQ/L (20-30) Anion Gap 12 (5-15) Blood Urea Nitrogen 14 mg/dL (7-23) Creatinine 0.7 mg/dL (0.5-0.9) Estimat Glomerular Filtration Rate > 60 mL/min (>60) Glucose Level 111 mg/dL (74-106) H Calcium Level 8.6 mg/dL (8.6-10.2) Troponin I < 0.30 ng/mL (<=0.30) Vancomycin Level Trough 17.2 ug/mL (5.0-12.0) H Current Medications Medications (Trade) Dose Ordered Sig/Key Route PRN Reason Start Time Stop Time Status Last Admin Dose Admin Benazepril HCl (Lotensin) 20 mg DAILY ORAL 06/15/16 09:00 07/15/16 08:59 06/16/16 08:49 Cefepime HCl/ Dextrose (Maxipime/D5W) 50 ml @ 100 mls/hr Q12HR@0100,1300 IVPB 06/14/16 13:00 06/21/16 12:59 06/16/16 11:58 Dextrose (Dextrose 50%) STAT PRN IV Hypoglycemia 06/14/16 04:15 07/14/16 04:14 Furosemide (Lasix) 20 mg DAILY ORAL 06/15/16 09:00 07/15/16 08:59 06/16/16 08:49 Hydromorphone HCl (Dilaudid) 2 mg Q4H PRN IVP Severe Pain (Pain Scale 7-10) 06/14/16 05:15 06/21/16 05:14 06/16/16 07:57 Metronidazole 500 mg 500 mg EVERY 8 HOURS ORAL 06/14/16 12:00 06/21/16 11:59 06/16/16 06:14 Non-Formulary Medication (Non-Formulary Med) 1 ea DAILY ORAL 06/15/16 09:00 07/15/16 08:59 UNV Rivaroxaban 20 mg 20 mg DAILY ORAL 06/15/16 09:00 07/15/16 08:59 06/16/16 08:49 Vancomycin HCl (Vanco rx to dose) 1 ea DAILY PRN MISC Per rx protocol 06/14/16 11:15 07/14/16 11:14 Vancomycin HCl/ Dextrose (Vancomycin/D5W) 325 ml @ 162.5 mls/ hr Q12HR@0200,1400 IVPB 06/15/16 02:00 06/20/16 01:59 06/16/16 03:18 ASTER HACKETT Jun 16, 2016 12:29
[2016-06-16] MEDS ORDERED: Vancomycin 1gm in D5W 275ml IVPB SCH ×2 (16:00→18:30)
--- NOTE | 2016-06-16 17:45 | Internal Med Progress Note ---
Subjective Date of Service: Jun 16, 2016 Physician Name Trever Schmid Attending Physician Trever Schmid Current Medications Medications (Trade) Dose Ordered Sig/Key Route PRN Reason Start Time Stop Time Status Last Admin Dose Admin Benazepril HCl (Lotensin) 20 mg DAILY ORAL 06/15/16 09:00 07/15/16 08:59 06/16/16 08:49 Cefepime HCl/ Dextrose (Maxipime/D5W) 50 ml @ 100 mls/hr Q12HR@0100,1300 IVPB 06/14/16 13:00 06/21/16 12:59 06/16/16 11:58 Dextrose (Dextrose 50%) STAT PRN IV Hypoglycemia 06/14/16 04:15 07/14/16 04:14 Furosemide (Lasix) 20 mg DAILY ORAL 06/15/16 09:00 07/15/16 08:59 06/16/16 08:49 Hydromorphone HCl (Dilaudid) 2 mg Q4H PRN IVP Severe Pain (Pain Scale 7-10) 06/14/16 05:15 06/21/16 05:14 06/16/16 13:24 Metronidazole 500 mg 500 mg EVERY 8 HOURS ORAL 06/14/16 12:00 06/21/16 11:59 06/16/16 13:20 Non-Formulary Medication (Non-Formulary Med) 1 ea DAILY ORAL 06/15/16 09:00 07/15/16 08:59 UNV Rivaroxaban 20 mg 20 mg DAILY ORAL 06/15/16 09:00 07/15/16 08:59 06/16/16 08:49 Vancomycin HCl (Vanco rx to dose) 1 ea DAILY PRN MISC Per rx protocol 06/14/16 11:15 07/14/16 11:14 Vancomycin HCl/ Dextrose (Vancomycin/D5W) 275 ml @ 183.708 mls/hr Q12HR IVPB 06/16/16 16:00 06/21/16 15:59 06/16/16 16:10 Allergies: Coded Allergies: SULFA (SULFONAMIDE ANTIBIOTICS) (Unverified Allergy, Unknown, 05/02/15) allergy history per Dr. Robert BAUER Limited/Unobtainable: No Constitutional: Reports: no symptoms HEENT: Reports: no symptoms Cardiovascular: Reports: no symptoms Respiratory: Reports: no symptoms Gastrointestinal/Abdominal: Reports: no symptoms Genitourinary: Reports: no symptoms Neurologic/Psychiatric: Reports: no symptoms Subjective 55 YO obese F admitted with chest pain. S/P Dobutamine echo 06/15/16 Objective Last Vital Signs Date Time Temp Pulse Resp B/P Pulse Ox O2 Delivery O2 Flow Rate FiO2 06/16/16 16:08 97.0 75 20 103/67 98 Room Air Laboratory Tests Test 06/16/16 01:35 White Blood Count 11.2 K/UL (4.8-10.8) H Red Blood Count 4.28 M/UL (4.20-5.40) Hemoglobin 11.0 G/DL (12.0-16.0) L Hematocrit 34.6 % (37.0-47.0) L Mean Corpuscular Volume 81 FL (80-99) Mean Corpuscular Hemoglobin 25.7 PG (27.0-31.0) L Mean Corpuscular Hemoglobin Concent 31.7 G/DL (32.0-36.0) L Red Cell Distribution Width 14.8 % (11.6-14.8) Platelet Count 276 K/UL (150-450) Mean Platelet Volume 7.6 FL (6.5-10.1) Neutrophils (%) (Auto) 73.3 % (45.0-75.0) Lymphocytes (%) (Auto) 16.7 % (20.0-45.0) L Monocytes (%) (Auto) 7.3 % (1.0-10.0) Eosinophils (%) (Auto) 2.0 % (0.0-3.0) Basophils (%) (Auto) 0.8 % (0.0-2.0) Sodium Level 134 mEQ/L (135-145) L Potassium Level 3.7 mEQ/L (3.4-4.9) Chloride Level 94 mEQ/L (98-107) L Carbon Dioxide Level 28 mEQ/L (20-30) Anion Gap 12 (5-15) Blood Urea Nitrogen 14 mg/dL (7-23) Creatinine 0.7 mg/dL (0.5-0.9) Estimat Glomerular Filtration Rate > 60 mL/min (>60) Glucose Level 111 mg/dL (74-106) H Calcium Level 8.6 mg/dL (8.6-10.2) Troponin I < 0.30 ng/mL (<=0.30) Vancomycin Level Trough 17.2 ug/mL (5.0-12.0) H Intake and Output 06/15/16 06/16/16 19:00 07:00 Intake Total 522.5 ml 375.0 ml Balance 522.5 ml 375.0 ml Intake Oral 360 ml IV Total 162.5 ml 375.0 ml # Voids 3 Objective General Appearance: no apparent distress, alert, obese EENT: PERRL/EOMI, normal ENT inspection Neck: non-tender, normal alignment, supple, normal inspection Cardiovascular: normal peripheral pulses, normal rate, regular rhythm, no gallop/murmur, no JVD Respiratory/Chest: chest wall non-tender, lungs clear, normal breath sounds, no respiratory distress, no accessory muscle use Abdomen: normal bowel sounds, non tender, soft, no organomegaly, no mass Extremities: normal range of motion 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 (5) Hypertension Assessment & Plan: Cont benazepril and lasix (6) Left leg cellulitis Assessment & Plan: Cont vanco and cefepime per ID (7) Leukocytosis Assessment & Plan: Resolved on antibiotic. (8) Diarrhea Assessment & Plan: await C.Diff. See ID note. Cont flagyl Status: unchanged Assessment/Plan Discharge planning. TREVER SCHMID Jun 16, 2016 17:45
--- NOTE | 2016-06-16 19:53 | Cardiology Progress Note ---
Assessment/Plan Assessment/Plan 1. Atypical chest pain, non-ischemic dobutamine stress echo with normal baseline LVEF, transferred to a lower level of care. 2. Morbid obesity. 3. Hypertension. 4. Bilateral lower extremity deep venous thrombosis, on Xarelto. 5. Chronic pain syndrome. 6. History of leg cellulitis Subjective Subjective Transferred to the med-surg unit. Objective Last 24 Hour Vital Signs Date Time Temp Pulse Resp B/P Pulse Ox O2 Delivery O2 Flow Rate FiO2 06/16/16 16:08 97.0 75 20 103/67 98 Room Air 06/16/16 12:43 97.0 108 20 106/61 97 Room Air 06/16/16 12:00 87 06/16/16 08:49 125/66 06/16/16 08:45 97.3 80 20 125/66 100 Room Air 06/16/16 08:00 80 06/16/16 05:03 97.2 81 20 136/73 97 Room Air 06/16/16 04:00 97.2 81 20 136/73 97 Room Air 06/16/16 04:00 85 06/16/16 00:00 74 06/16/16 00:00 97.9 74 20 100/61 99 Room Air 06/15/16 20:00 84 06/15/16 20:00 98.2 77 18 125/73 96 Room Air Intake and Output 06/15/16 06/16/16 19:00 07:00 Intake Total 522.5 ml 375.0 ml Balance 522.5 ml 375.0 ml Intake Oral 360 ml IV Total 162.5 ml 375.0 ml # Voids 3 2D Echo: LVEF 55%, Mild LVH, RA/RV enlargement, RVSP 49 mmHg, IVC 2.1 cm Laboratory Tests Test 06/16/16 01:35 White Blood Count 11.2 K/UL (4.8-10.8) H Red Blood Count 4.28 M/UL (4.20-5.40) Hemoglobin 11.0 G/DL (12.0-16.0) L Hematocrit 34.6 % (37.0-47.0) L Mean Corpuscular Volume 81 FL (80-99) Mean Corpuscular Hemoglobin 25.7 PG (27.0-31.0) L Mean Corpuscular Hemoglobin Concent 31.7 G/DL (32.0-36.0) L Red Cell Distribution Width 14.8 % (11.6-14.8) Platelet Count 276 K/UL (150-450) Mean Platelet Volume 7.6 FL (6.5-10.1) Neutrophils (%) (Auto) 73.3 % (45.0-75.0) Lymphocytes (%) (Auto) 16.7 % (20.0-45.0) L Monocytes (%) (Auto) 7.3 % (1.0-10.0) Eosinophils (%) (Auto) 2.0 % (0.0-3.0) Basophils (%) (Auto) 0.8 % (0.0-2.0) Sodium Level 134 mEQ/L (135-145) L Potassium Level 3.7 mEQ/L (3.4-4.9) Chloride Level 94 mEQ/L (98-107) L Carbon Dioxide Level 28 mEQ/L (20-30) Anion Gap 12 (5-15) Blood Urea Nitrogen 14 mg/dL (7-23) Creatinine 0.7 mg/dL (0.5-0.9) Estimat Glomerular Filtration Rate > 60 mL/min (>60) Glucose Level 111 mg/dL (74-106) H Calcium Level 8.6 mg/dL (8.6-10.2) Troponin I < 0.30 ng/mL (<=0.30) Vancomycin Level Trough 17.2 ug/mL (5.0-12.0) H Objective GENERAL: The patient is a very unfortunate 55-year-old female, who is comfortable in no apparent respiratory distress. HEENT: Atraumatic and normocephalic. Anicteric. Pupils are equal, round, and reactive to light and accommodation. Extraocular muscles are intact. NECK: JVP cannot be evaluated. Bilateral carotid upstrokes 2+. No carotid bruit. LUNGS: Clear to auscultation bilaterally. CVS: Normal S1 and S2. Regular rate and rhythm. No murmurs, gallops, or rubs. PMI is at fourth intercostal space at left midclavicular line. ABDOMEN: Soft, nontender, and nondistended. No hepatosplenomegaly. Positive bowel sounds. EXTREMITIES: 1+edema B/L, chronic venous stasis, no clubbing or cyanosis. LALO WILL Jun 16, 2016 19:53
[2016-06-17] VITALS: BP 116/66
[2016-06-17] MEDS ORDERED: Cefepime 1gm vial ONE (00:41)
[2016-06-17 04:00] VITALS: BP 100/50
[2016-06-17] MEDS: Vancomycin 1 GM in D5W 275 ML IVPB SCH ×2 (05:51→18:04)
[2016-06-17] MEDS: metroNIDAZOLE 500mg tab ORAL SCH ×3 (05:51→21:28)
[2016-06-17 06:35] LABS: BASOPHILS % (AUTO) 1.2 % (0.0-2.0); EOSINOPHILS % (AUTO) 2.2 % (0.0-3.0); LYMPHOCYTES % (AUTO) 20.4 % (20.0-45.0); MEAN CORPUSCULAR HEMOGLOBIN 25.5 PG (27.0-31.0); MEAN CORPUSCULAR HGB CONC 31.2 G/DL (32.0-36.0); MEAN CORPUSCULAR VOLUME 82 FL (80-99); MEAN PLATELET VOLUME 7.8 FL (6.5-10.1); MONOCYTES % (AUTO) 6.8 % (1.0-10.0); NEUTROPHILS % (AUTO) 69.5 % (45.0-75.0); PLATELET COUNT 304 K/UL (150-450); RED BLOOD COUNT 4.81 M/UL (4.20-5.40); RED CELL DISTRIBUTION WIDTH 14.9 % (11.6-14.8); WHITE BLOOD COUNT 11.8 K/UL (4.8-10.8)
[2016-06-17 06:50] LABS: TROPONIN I < 0.30 ng/mL (<=0.30)
[2016-06-17 06:53] LABS: ANION GAP 14 (5-15); CARBON DIOXIDE 28 mEQ/L (20-30); CHLORIDE 94 mEQ/L (98-107); CREATININE 0.7 mg/dL (0.5-0.9); GLOMERULAR FILTRATION RATE > 60 mL/min (>60); HEMOLYSIS 74; POTASSIUM 4.4 mEQ/L (3.4-4.9); SODIUM 136 mEQ/L (135-145)
[2016-06-17 08:22] VITALS: BP 102/63
[2016-06-17] MEDS: Benazepril 10mg tab ORAL SCH (08:47)
[2016-06-17] MEDS: Xarelto 10mg tab ORAL SCH (08:47)
--- NOTE | 2016-06-17 11:52 | Infectious Diseases Prog Note ---
Assessment/Plan Assessment/Plan ASSESSMENT AND PLAN: 1. The patient who has left leg cellulitis with leukocytosis, ? c.diff., hx abx , ? uri - clinically better but still with some cellulitis - vancomycin, cefepime and flagyl - day # 4 abx - watch labs/cr 2. Pleuritic chest pain workup per primary and cardiology - rule out pulmonary embolism, r/o acute coronary syndrome, hx dvt 3. Chronic lower extremity deep venous thrombosis. 4. Hypertension. 5. Obesity. 6. Chronic pain syndrome. 7. History of gram-negative cellulitis . 8. The patient has anemia . 9. Blood pressure control per primary for hypertension. 10. Allergies to sulfa . 11. Social history is negative. 12. Case discussed with Dr. Holguin. 13. - vt, mar noted 14. Case discussed with the patient . 15. Case discussed with RN. 16. Notes and records were reviewed. Subjective Constitutional: Reports: fatigue, Denies: fever HEENT: Denies: congestion Respiratory: Denies: shortness of breath Cardiovascular: Denies: chest pain Gastrointestinal/Abdominal: Denies: diarrhea, nausea, vomiting Genitourinary: Reports: other - no eaton Neurologic: Denies: headache Psychiatric: Denies: depression Skin: Denies: rash Hematologic: Denies: bleeding Musculoskeletal: Reports: pain Allergies: Coded Allergies: SULFA (SULFONAMIDE ANTIBIOTICS) (Unverified Allergy, Unknown, 05/02/15) allergy history per Dr. Jones Objective Vital Signs Last 24 Hour Vital Signs Date Time Temp Pulse Resp B/P Pulse Ox O2 Delivery O2 Flow Rate FiO2 06/17/16 08:47 102/63 06/17/16 08:22 98.2 80 20 102/63 97 Room Air 06/17/16 06:30 97.3 06/17/16 04:00 97.5 88 18 100/50 97 Room Air 06/17/16 00:00 97.3 74 18 116/66 98 Room Air 06/16/16 20:00 98.2 81 20 111/66 99 Room Air 06/16/16 16:08 97.0 75 20 103/67 98 Room Air 06/16/16 12:43 97.0 108 20 106/61 97 Room Air 06/16/16 12:00 87 Height (Feet): 6 Height (Inches): 1.00 Weight (Pounds): 420 General Appearance: no acute distress HEENT: normocephalic, atraumatic, anicteric, mucous membranes moist, PERRL, EOMI, pharynx normal, supple, no JVD Respiratory/Chest: lungs clear, normal breath sounds, no respiratory distress, no accessory muscle use Cardiovascular: normal rate, regular rhythm, no gallop/murmur, no JVD Abdomen: normal bowel sounds, soft, non tender, no organomegaly, non distended Genitourinary: other - no eaton Extremities: no cyanosis, other - left leg with less swelling and warmth but still some Skin: no rash Neurologic/Psychiatric: filer helper II-XII grossly normal, alert, 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 Lymphatic: no neck adenopathy Musculoskeletal: no effusion Objective chest x-ray - negative (reviewed0 none Laboratory Tests Test 06/17/16 04:50 White Blood Count 11.8 K/UL (4.8-10.8) H Red Blood Count 4.81 M/UL (4.20-5.40) Hemoglobin 12.3 G/DL (12.0-16.0) Hematocrit 39.3 % (37.0-47.0) Mean Corpuscular Volume 82 FL (80-99) Mean Corpuscular Hemoglobin 25.5 PG (27.0-31.0) L Mean Corpuscular Hemoglobin Concent 31.2 G/DL (32.0-36.0) L Red Cell Distribution Width 14.9 % (11.6-14.8) H Platelet Count 304 K/UL (150-450) Mean Platelet Volume 7.8 FL (6.5-10.1) Neutrophils (%) (Auto) 69.5 % (45.0-75.0) Lymphocytes (%) (Auto) 20.4 % (20.0-45.0) Monocytes (%) (Auto) 6.8 % (1.0-10.0) Eosinophils (%) (Auto) 2.2 % (0.0-3.0) Basophils (%) (Auto) 1.2 % (0.0-2.0) Sodium Level 136 mEQ/L (135-145) Potassium Level 4.4 mEQ/L (3.4-4.9) Chloride Level 94 mEQ/L (98-107) L Carbon Dioxide Level 28 mEQ/L (20-30) Anion Gap 14 (5-15) Blood Urea Nitrogen 17 mg/dL (7-23) Creatinine 0.7 mg/dL (0.5-0.9) Estimat Glomerular Filtration Rate > 60 mL/min (>60) Glucose Level 98 mg/dL (74-106) Calcium Level 9.0 mg/dL (8.6-10.2) Troponin I < 0.30 ng/mL (<=0.30) Current Medications Medications (Trade) Dose Ordered Sig/Key Route PRN Reason Start Time Stop Time Status Last Admin Dose Admin Benazepril HCl (Lotensin) 20 mg DAILY ORAL 06/17/16 09:00 07/17/16 08:59 06/17/16 08:47 Cefepime HCl 1 gm/ Dextrose 50 ml @ 100 mls/hr Q12HR@0100,1300 IVPB 06/17/16 01:00 06/24/16 00:59 06/17/16 01:16 Dextrose (Dextrose 50%) STAT PRN IV Hypoglycemia 06/16/16 19:30 07/16/16 19:29 Furosemide (Lasix) 20 mg DAILY ORAL 06/17/16 09:00 07/17/16 08:59 06/17/16 08:46 Hydromorphone HCl (Dilaudid) 2 mg Q4H PRN IVP Severe Pain (Pain Scale 7-10) 06/16/16 19:30 06/23/16 19:29 06/17/16 05:51 Metronidazole (Flagyl) 500 mg EVERY 8 HOURS ORAL 06/16/16 22:00 06/23/16 21:59 06/17/16 05:51 Non-Formulary Medication (Non-Formulary Med) 1 ea DAILY ORAL 06/17/16 09:00 07/17/16 08:59 UNV Promethazine HCl/ Codeine (Phenergan with Codeine) 5 ml Q4H PRN ORAL For Cough 06/17/16 10:45 07/17/16 10:44 Rivaroxaban (Xarelto) 20 mg DAILY ORAL 06/17/16 09:00 07/17/16 08:59 06/17/16 08:47 Vancomycin HCl (Vanco rx to dose) 1 ea DAILY PRN MISC Per rx protocol 06/16/16 19:30 07/16/16 19:29 Vancomycin HCl/ Dextrose (Vancomycin/D5W) 275 ml @ 183.708 mls/hr Q12H IVPB 06/17/16 06:30 06/22/16 06:29 06/17/16 05:51 ASTER HACKETT Jun 17, 2016 11:52
[2016-06-17 12:08] VITALS: BP 108/66
[2016-06-17] MEDS: Promethazine/Codeine 5ml UD ORAL PRN (12:42)
[2016-06-17] MEDS ORDERED: NS 275ml ONE (14:44)
[2016-06-17] MEDS ORDERED: Tubing IV Secondary IV ONE (14:44)
[2016-06-17 16:00] VITALS: BP 113/60
--- NOTE | 2016-06-17 16:55 | Cardiology Report ---
APPROVED REPORT EXAM: Two-dimensional and M-mode echocardiogram with Doppler and color Doppler. M-Mode DIMENSIONS IVSd1.4 (0.7-1.1cm)Left Atrium (MM)3.8 (1.6-4.0cm) LVDd5.4 (3.5-5.6cm)Aortic Root3.1 (2.0-3.7cm) PWd1.4 (0.7-1.1cm)Aortic Cusp Exc.2.2 (1.5-2.0cm) LVDs3.3 (2.5-4.0cm) PWs1.6 cm Chest Pain Technically difficult study due to poor acoustic windows. Study quality precludes accurate assessment of regional wall motion. Mild left ventricular enlargement. Left ventricular systolic function and wall motion are within normal limits to the extent visualized. Left ventricular ejection fraction estimated to be 50-55%. Mild left ventricular hypertrophy. Anterior Echo-free space, may be due to pericardial fat or effusion. No evidence of pericardial effusion. Mild right atrial enlargement. Mild right ventricular enlargement. Left atrial chamber size is within normal limits. Mild focal aortic valve sclerosis with adequate cusp excursion. Mildly thickened mitral valve leaflets with normal excursion. Mild mitral annulus and aortic root calcification. Pulmonic valve not well visualized. Normal tricuspid valve structure. IVC dilated at 2.1cm with physiologic collapse. A color flow and spectral Doppler study was performed and revealed: No aortic regurgitation. Trace mitral regurgitation. Mitral inflow velocities indicates possible pseudo normalization pattern implying significant left ventricular diastolic dysfunction (Grade II). Mild tricuspid regurgitation. Tricuspid systolic velocities suggests peak right ventricular systolic pressure of 49 mmHg, consistent with moderate pulmonary hypertension. Trace pulmonic regurgitation present.
--- NOTE | 2016-06-17 17:31 | Cardiology Progress Note ---
Assessment/Plan Assessment/Plan 1. Atypical chest pain, non-ischemic dobutamine stress echo with normal baseline LVEF. 2. Morbid obesity. 3. Hypertension, continue Benazepril. 4. Bilateral lower extremity deep venous thrombosis, on Xarelto. 5. Chronic pain syndrome. 6. History of leg cellulitis Subjective Subjective No cardiac events. Non-ischemic stress echo. Objective Last 24 Hour Vital Signs Date Time Temp Pulse Resp B/P Pulse Ox O2 Delivery O2 Flow Rate FiO2 06/17/16 16:00 97.2 87 20 113/60 96 Room Air 06/17/16 12:08 98.0 85 20 108/66 97 Room Air 06/17/16 08:47 102/63 06/17/16 08:22 98.2 80 20 102/63 97 Room Air 06/17/16 06:30 97.3 06/17/16 04:00 97.5 88 18 100/50 97 Room Air 06/17/16 00:00 97.3 74 18 116/66 98 Room Air 06/16/16 20:00 98.2 81 20 111/66 99 Room Air Intake and Output 06/16/16 06/17/16 19:00 07:00 Intake Total 820 ml 570 ml Balance 820 ml 570 ml Intake Oral 720 ml 520 ml IV Total 100 ml 50 ml # Voids 3 4 2D Echo: LVEF 55%, Mild LVH, RA/RV enlargement, RVSP 49 mmHg, IVC 2.1 cm Laboratory Tests Test 06/17/16 04:50 White Blood Count 11.8 K/UL (4.8-10.8) H Red Blood Count 4.81 M/UL (4.20-5.40) Hemoglobin 12.3 G/DL (12.0-16.0) Hematocrit 39.3 % (37.0-47.0) Mean Corpuscular Volume 82 FL (80-99) Mean Corpuscular Hemoglobin 25.5 PG (27.0-31.0) L Mean Corpuscular Hemoglobin Concent 31.2 G/DL (32.0-36.0) L Red Cell Distribution Width 14.9 % (11.6-14.8) H Platelet Count 304 K/UL (150-450) Mean Platelet Volume 7.8 FL (6.5-10.1) Neutrophils (%) (Auto) 69.5 % (45.0-75.0) Lymphocytes (%) (Auto) 20.4 % (20.0-45.0) Monocytes (%) (Auto) 6.8 % (1.0-10.0) Eosinophils (%) (Auto) 2.2 % (0.0-3.0) Basophils (%) (Auto) 1.2 % (0.0-2.0) Sodium Level 136 mEQ/L (135-145) Potassium Level 4.4 mEQ/L (3.4-4.9) Chloride Level 94 mEQ/L (98-107) L Carbon Dioxide Level 28 mEQ/L (20-30) Anion Gap 14 (5-15) Blood Urea Nitrogen 17 mg/dL (7-23) Creatinine 0.7 mg/dL (0.5-0.9) Estimat Glomerular Filtration Rate > 60 mL/min (>60) Glucose Level 98 mg/dL (74-106) Calcium Level 9.0 mg/dL (8.6-10.2) Troponin I < 0.30 ng/mL (<=0.30) Objective GENERAL: The patient is a very unfortunate 55-year-old female, who is comfortable in no apparent respiratory distress. HEENT: Atraumatic and normocephalic. Anicteric. Pupils are equal, round, and reactive to light and accommodation. Extraocular muscles are intact. NECK: JVP cannot be evaluated. Bilateral carotid upstrokes 2+. No carotid bruit. LUNGS: Clear to auscultation bilaterally. CVS: Normal S1 and S2. Regular rate and rhythm. No murmurs, gallops, or rubs. PMI is at fourth intercostal space at left midclavicular line. ABDOMEN: Soft, nontender, and nondistended. No hepatosplenomegaly. Positive bowel sounds. EXTREMITIES: 1+edema B/L, chronic venous stasis, no clubbing or cyanosis. LALO WILL Jun 17, 2016 17:31
--- NOTE | 2016-06-17 18:01 | Internal Med Progress Note ---
Subjective Date of Service: Jun 17, 2016 Physician Name Trever Holguin Attending Physician Trever Holguin Current Medications Medications (Trade) Dose Ordered Sig/Key Route PRN Reason Start Time Stop Time Status Last Admin Dose Admin Benazepril HCl (Lotensin) 20 mg DAILY ORAL 06/17/16 09:00 07/17/16 08:59 06/17/16 08:47 Cefepime HCl 1 gm/ Dextrose 50 ml @ 100 mls/hr Q12HR@0100,1300 IVPB 06/17/16 01:00 06/24/16 00:59 06/17/16 12:41 Dextrose (Dextrose 50%) STAT PRN IV Hypoglycemia 06/16/16 19:30 07/16/16 19:29 Furosemide (Lasix) 20 mg DAILY ORAL 06/17/16 09:00 07/17/16 08:59 06/17/16 08:46 Hydromorphone HCl (Dilaudid) 2 mg Q4H PRN IVP Severe Pain (Pain Scale 7-10) 06/16/16 19:30 06/23/16 19:29 06/17/16 13:24 Metronidazole (Flagyl) 500 mg EVERY 8 HOURS ORAL 06/16/16 22:00 06/23/16 21:59 06/17/16 13:24 Non-Formulary Medication (Non-Formulary Med) 1 ea DAILY ORAL 06/17/16 09:00 07/17/16 08:59 UNV Promethazine HCl/ Codeine (Phenergan with Codeine) 5 ml Q4H PRN ORAL For Cough 06/17/16 10:45 07/17/16 10:44 06/17/16 12:42 Rivaroxaban (Xarelto) 20 mg DAILY ORAL 06/17/16 09:00 07/17/16 08:59 06/17/16 08:47 Vancomycin HCl (Vanco rx to dose) 1 ea DAILY PRN MISC Per rx protocol 06/16/16 19:30 07/16/16 19:29 Vancomycin HCl/ Dextrose (Vancomycin/D5W) 275 ml @ 183.708 mls/hr Q12H IVPB 06/17/16 06:30 06/22/16 06:29 06/17/16 05:51 Allergies: Coded Allergies: SULFA (SULFONAMIDE ANTIBIOTICS) (Unverified Allergy, Unknown, 05/02/15) allergy history per Dr. Robert BAUER Limited/Unobtainable: No Constitutional: Reports: no symptoms HEENT: Reports: no symptoms Cardiovascular: Reports: no symptoms Respiratory: Reports: no symptoms Gastrointestinal/Abdominal: Reports: no symptoms Genitourinary: Reports: no symptoms Neurologic/Psychiatric: Reports: no symptoms Subjective 55 YO obese F admitted with chest pain. S/P Dobutamine echo 06/15/16. Await transfer to Rehab on [facility] Objective Last Vital Signs Date Time Temp Pulse Resp B/P Pulse Ox O2 Delivery O2 Flow Rate FiO2 06/17/16 16:00 97.2 87 20 113/60 96 Room Air Laboratory Tests Test 06/17/16 04:50 White Blood Count 11.8 K/UL (4.8-10.8) H Red Blood Count 4.81 M/UL (4.20-5.40) Hemoglobin 12.3 G/DL (12.0-16.0) Hematocrit 39.3 % (37.0-47.0) Mean Corpuscular Volume 82 FL (80-99) Mean Corpuscular Hemoglobin 25.5 PG (27.0-31.0) L Mean Corpuscular Hemoglobin Concent 31.2 G/DL (32.0-36.0) L Red Cell Distribution Width 14.9 % (11.6-14.8) H Platelet Count 304 K/UL (150-450) Mean Platelet Volume 7.8 FL (6.5-10.1) Neutrophils (%) (Auto) 69.5 % (45.0-75.0) Lymphocytes (%) (Auto) 20.4 % (20.0-45.0) Monocytes (%) (Auto) 6.8 % (1.0-10.0) Eosinophils (%) (Auto) 2.2 % (0.0-3.0) Basophils (%) (Auto) 1.2 % (0.0-2.0) Sodium Level 136 mEQ/L (135-145) Potassium Level 4.4 mEQ/L (3.4-4.9) Chloride Level 94 mEQ/L (98-107) L Carbon Dioxide Level 28 mEQ/L (20-30) Anion Gap 14 (5-15) Blood Urea Nitrogen 17 mg/dL (7-23) Creatinine 0.7 mg/dL (0.5-0.9) Estimat Glomerular Filtration Rate > 60 mL/min (>60) Glucose Level 98 mg/dL (74-106) Calcium Level 9.0 mg/dL (8.6-10.2) Troponin I < 0.30 ng/mL (<=0.30) Intake and Output 06/16/16 06/17/16 19:00 07:00 Intake Total 820 ml 570 ml Balance 820 ml 570 ml Intake Oral 720 ml 520 ml IV Total 100 ml 50 ml # Voids 3 4 Objective General Appearance: no apparent distress, alert, obese EENT: PERRL/EOMI, normal ENT inspection Neck: non-tender, normal alignment, supple, normal inspection Cardiovascular: normal peripheral pulses, normal rate, regular rhythm, no gallop/murmur, no JVD Respiratory/Chest: chest wall non-tender, lungs clear, normal breath sounds, no respiratory distress, no accessory muscle use Abdomen: normal bowel sounds, non tender, soft, no organomegaly, no mass Extremities: normal range of motion Neurologic: staff scientist II-XII grossly normal, no motor/sensory deficits Skin: normal pigmentation, warm/dry Assessment/Plan Problem List: (1) Chronic pain (2) Obesity (3) Deep vein thrombosis (DVT) of left lower extremity Assessment & Plan: Cont xarelto (4) Chest pain Assessment & Plan: S/P dobutamine stress test-See cardiology note. (5) Hypertension Assessment & Plan: Cont benazepril and lasix (6) Left leg cellulitis Assessment & Plan: Cont vanco and cefepime per ID (7) Leukocytosis Assessment & Plan: Resolved on antibiotic. (8) Diarrhea Assessment & Plan: await C.Diff. See ID note. Cont flagyl (9) Cough Assessment & Plan: Start phenergan with codeine Status: progressing Assessment/Plan Discharge planning: Rehab on [facility] Jun 17, 2016 18:01
[2016-06-17 19:00] VITALS: BP 118/68
[2016-06-17] MEDS: Clobetasol Cream 0.05% 15gm TOPIC SCH (20:48)
[2016-06-18] VITALS: BP 98/49
[2016-06-18 04:00] VITALS: BP 140/70
[2016-06-18] MEDS: metroNIDAZOLE 500mg tab ORAL SCH ×3 (06:00→21:18)
[2016-06-18] MEDS: Vancomycin 1 GM in D5W 275 ML IVPB SCH ×3 (06:25→18:30)
[2016-06-18 08:15] VITALS: BP 109/49
[2016-06-18] MEDS: Xarelto 10mg tab ORAL SCH (08:40)
[2016-06-18] MEDS: Clobetasol Cream 0.05% 15gm TOPIC SCH ×2 (08:42→17:20)
[2016-06-18] MEDS: Benazepril 10mg tab ORAL SCH (08:56)
[2016-06-18] MEDS: Promethazine/Codeine 5ml UD ORAL PRN (08:57)
[2016-06-18] MEDS ORDERED: Tubing IV Secondary IV ONE (09:40)
[2016-06-18] MEDS ORDERED: NS 275ml ONE (09:40)
[2016-06-18 12:15] VITALS: BP 146/87
[2016-06-18 16:01] VITALS: BP 116/63
--- NOTE | 2016-06-18 19:09 | Internal Med Progress Note ---
Subjective Date of Service: Jun 18, 2016 Physician Name Trever Schmid Attending Physician Trever Schmid Current Medications Medications (Trade) Dose Ordered Sig/Key Route PRN Reason Start Time Stop Time Status Last Admin Dose Admin Benazepril HCl (Lotensin) 20 mg DAILY ORAL 06/17/16 09:00 07/17/16 08:59 06/17/16 08:47 Cefepime HCl 1 gm/ Dextrose 50 ml @ 100 mls/hr Q12HR@0100,1300 IVPB 06/17/16 01:00 06/24/16 00:59 06/18/16 13:08 Clobetasol Propionate (Temovate) 1 applic TWICE A DAY TOPIC 06/17/16 20:30 07/17/16 20:29 06/18/16 17:20 Dextrose (Dextrose 50%) STAT PRN IV Hypoglycemia 06/16/16 19:30 07/16/16 19:29 Furosemide (Lasix) 20 mg DAILY ORAL 06/17/16 09:00 07/17/16 08:59 06/18/16 08:40 Hydromorphone HCl (Dilaudid) 2 mg Q4H PRN IVP Severe Pain (Pain Scale 7-10) 06/16/16 19:30 06/23/16 19:29 06/18/16 17:22 Metronidazole (Flagyl) 500 mg EVERY 8 HOURS ORAL 06/16/16 22:00 06/23/16 21:59 06/18/16 13:53 Non-Formulary Medication (Non-Formulary Med) 1 ea DAILY ORAL 06/17/16 09:00 07/17/16 08:59 UNV Promethazine HCl/ Codeine (Phenergan with Codeine) 5 ml Q4H PRN ORAL For Cough 06/17/16 10:45 07/17/16 10:44 06/18/16 08:57 Rivaroxaban (Xarelto) 20 mg DAILY ORAL 06/17/16 09:00 07/17/16 08:59 06/18/16 08:40 Vancomycin HCl (Vanco rx to dose) 1 ea DAILY PRN MISC Per rx protocol 06/16/16 19:30 07/16/16 19:29 Vancomycin HCl/ Dextrose (Vancomycin/D5W) 275 ml @ 183.708 mls/hr Q12H IVPB 06/17/16 06:30 2/9/17 06:29 06/18/16 18:16 Allergies: Coded Allergies: SULFA (SULFONAMIDE ANTIBIOTICS) (Unverified Allergy, Unknown, 05/02/15) allergy history per Dr. Robert BAUER Limited/Unobtainable: No Constitutional: Reports: no symptoms HEENT: Reports: no symptoms Cardiovascular: Reports: no symptoms Respiratory: Reports: no symptoms Gastrointestinal/Abdominal: Reports: no symptoms Genitourinary: Reports: no symptoms Neurologic/Psychiatric: Reports: no symptoms Subjective 55 YO obese F admitted with chest pain. S/P Dobutamine echo 06/15/16. Await transfer to Rehab on [facility] Objective Last Vital Signs Date Time Temp Pulse Resp B/P Pulse Ox O2 Delivery O2 Flow Rate FiO2 06/18/16 16:01 97.6 87 19 116/63 99 Room Air Intake and Output 06/17/16 06/18/16 19:00 07:00 Intake Total 700 ml 600 ml Balance 700 ml 600 ml Intake Oral 650 ml 600 ml IV Total 50 ml # Voids 3 6 # Bowel Movements 1 Objective General Appearance: no apparent distress, alert, obese EENT: PERRL/EOMI, normal ENT inspection Neck: non-tender, normal alignment, supple, normal inspection Cardiovascular: normal peripheral pulses, normal rate, regular rhythm, no gallop/murmur, no JVD Respiratory/Chest: chest wall non-tender, lungs clear, normal breath sounds, no respiratory distress, no accessory muscle use Abdomen: normal bowel sounds, non tender, soft, no organomegaly, no mass Extremities: normal range of motion Neurologic: fisher II-XII grossly normal, no motor/sensory deficits Skin: normal pigmentation, warm/dry Assessment/Plan Problem List: (1) Chronic pain (2) Obesity (3) Deep vein thrombosis (DVT) of left lower extremity Assessment & Plan: Cont xarelto (4) Chest pain Assessment & Plan: S/P dobutamine stress test-See cardiology note. (5) Hypertension Assessment & Plan: Cont benazepril and lasix (6) Left leg cellulitis Assessment & Plan: Cont vanco and cefepime per ID (7) Leukocytosis Assessment & Plan: Resolved on antibiotic. (8) Diarrhea Assessment & Plan: await C.Diff. See ID note. Cont flagyl (9) Cough Assessment & Plan: Start phenergan with codeine Status: progressing Assessment/Plan Discharge planning: Rehab on [place] [facility] 06/19/16 TREVER SCHMID Jun 18, 2016 19:09
[2016-06-18] MEDS ORDERED: Heparin 2000 units/Ns 1000ml INJ PRN (19:30)
[2016-06-18] MEDS ORDERED: Lidocaine 1% Plain 30 ml INJ PRN (19:30)
[2016-06-18] MEDS ORDERED: Sodium Bicarbonate 8.4% 50ml Inj IV PRN (19:30)
[2016-06-18 20:04] VITALS: BP 107/66
[2016-06-19 04:00] VITALS: BP 143/79
[2016-06-19] MEDS: Vancomycin 1 GM in D5W 275 ML IVPB SCH ×2 (05:07→18:56)
[2016-06-19] MEDS: metroNIDAZOLE 500mg tab ORAL SCH ×3 (05:09→21:35)
[2016-06-19 07:10] LABS: BASOPHILS % (AUTO) 1.1 % (0.0-2.0); EOSINOPHILS % (AUTO) 2.6 % (0.0-3.0); MEAN CORPUSCULAR HEMOGLOBIN 25.1 PG (27.0-31.0); MEAN CORPUSCULAR HGB CONC 30.7 G/DL (32.0-36.0); MEAN CORPUSCULAR VOLUME 82 FL (80-99); MEAN PLATELET VOLUME 7.3 FL (6.5-10.1); MONOCYTES % (AUTO) 5.1 % (1.0-10.0); NEUTROPHILS % (AUTO) 74.2 % (45.0-75.0); PLATELET COUNT 200 K/UL (150-450); RED BLOOD COUNT 5.08 M/UL (4.20-5.40); RED CELL DISTRIBUTION WIDTH 14.9 % (11.6-14.8); WHITE BLOOD COUNT 12.8 K/UL (4.8-10.8)
[2016-06-19 07:42] LABS: ANION GAP 16 (5-15); CALCIUM 8.9 mg/dL (8.6-10.2); CARBON DIOXIDE 26 mEQ/L (20-30); CHLORIDE 97 mEQ/L (98-107); CREATININE 0.7 mg/dL (0.5-0.9); GLOMERULAR FILTRATION RATE > 60 mL/min (>60); HEMOLYSIS 48; POTASSIUM 5.1 mEQ/L (3.4-4.9); SODIUM 139 mEQ/L (135-145)
[2016-06-19 08:00] VITALS: BP 138/94
[2016-06-19] MEDS: Benazepril 10mg tab ORAL SCH (08:48)
[2016-06-19] MEDS: Xarelto 10mg tab ORAL SCH (08:49)
[2016-06-19] MEDS: Clobetasol Cream 0.05% 15gm TOPIC SCH ×2 (08:52→18:02)
[2016-06-19 12:00] VITALS: BP 136/82
--- NOTE | 2016-06-19 14:43 | Infectious Diseases Prog Note ---
Assessment/Plan Assessment/Plan ASSESSMENT AND PLAN: 1. The patient who has left leg cellulitis with leukocytosis, ? c.diff., hx abx , ? uri - clinically better but still with some cellulitis - vancomycin, cefepime and flagyl - day # 6 abx - watch labs/cr - watch leukocytosis 2. Pleuritic chest pain workup per primary and cardiology - rule out pulmonary embolism - cardiac w/u negative 3. Chronic lower extremity deep venous thrombosis. 4. Hypertension. 5. Obesity. 6. Chronic pain syndrome. 7. History of gram-negative cellulitis . 8. The patient has anemia . 9. Blood pressure control per primary for hypertension. 10. Allergies to sulfa . 11. Social history is negative. 12. Case discussed with Dr. Holguin. 13. - wa, mar noted 14. Case discussed with the patient . 15. Case discussed with RN. 16. Notes and records were reviewed. Subjective Constitutional: Denies: fever HEENT: Denies: congestion Respiratory: Denies: shortness of breath Cardiovascular: Denies: chest pain Gastrointestinal/Abdominal: Denies: nausea Neurologic: Denies: headache, weakness Psychiatric: Denies: depression Skin: Denies: rash Hematologic: Denies: bleeding Musculoskeletal: Reports: pain - leg pain controlled Allergies: Coded Allergies: SULFA (SULFONAMIDE ANTIBIOTICS) (Unverified Allergy, Unknown, 05/02/15) allergy history per Dr. Jones Objective Vital Signs Last 24 Hour Vital Signs Date Time Temp Pulse Resp B/P Pulse Ox O2 Delivery O2 Flow Rate FiO2 06/19/16 14:03 97.3 06/19/16 08:48 138/94 06/19/16 08:00 97.3 86 20 138/94 96 Room Air 06/19/16 04:00 98.6 88 18 143/79 Room Air 06/18/16 20:04 97.7 91 18 107/66 99 Room Air 06/18/16 16:01 97.6 87 19 116/63 99 Room Air Height (Feet): 6 Height (Inches): 1.00 Weight (Pounds): 420 General Appearance: no acute distress HEENT: normocephalic, atraumatic, anicteric, mucous membranes moist, PERRL, EOMI, pharynx normal, supple, no JVD Respiratory/Chest: lungs clear, normal breath sounds, no respiratory distress, no accessory muscle use Cardiovascular: normal rate, regular rhythm, no gallop/murmur, no JVD Abdomen: normal bowel sounds, soft, non tender, no organomegaly, non distended Genitourinary: other - no eaton Extremities: no cyanosis, other - still some swelling and warmth Skin: no rash Neurologic/Psychiatric: bucket pusher II-XII grossly normal, alert, 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, responsive Lymphatic: no neck adenopathy Musculoskeletal: no effusion Objective chest x-ray - negative (reviewed0 none Laboratory Tests Test 06/19/16 05:00 White Blood Count 12.8 K/UL (4.8-10.8) H Red Blood Count 5.08 M/UL (4.20-5.40) Hemoglobin 12.8 G/DL (12.0-16.0) Hematocrit 41.5 % (37.0-47.0) Mean Corpuscular Volume 82 FL (80-99) Mean Corpuscular Hemoglobin 25.1 PG (27.0-31.0) L Mean Corpuscular Hemoglobin Concent 30.7 G/DL (32.0-36.0) L Red Cell Distribution Width 14.9 % (11.6-14.8) H Platelet Count 200 K/UL (150-450) Mean Platelet Volume 7.3 FL (6.5-10.1) Neutrophils (%) (Auto) 74.2 % (45.0-75.0) Lymphocytes (%) (Auto) 17.0 % (20.0-45.0) L Monocytes (%) (Auto) 5.1 % (1.0-10.0) Eosinophils (%) (Auto) 2.6 % (0.0-3.0) Basophils (%) (Auto) 1.1 % (0.0-2.0) Sodium Level 139 mEQ/L (135-145) Potassium Level 5.1 mEQ/L (3.4-4.9) H Chloride Level 97 mEQ/L (98-107) L Carbon Dioxide Level 26 mEQ/L (20-30) Anion Gap 16 (5-15) H Blood Urea Nitrogen 18 mg/dL (7-23) Creatinine 0.7 mg/dL (0.5-0.9) Estimat Glomerular Filtration Rate > 60 mL/min (>60) Glucose Level 91 mg/dL (74-106) Calcium Level 8.9 mg/dL (8.6-10.2) Current Medications Medications (Trade) Dose Ordered Sig/Key Route PRN Reason Start Time Stop Time Status Last Admin Dose Admin Benazepril HCl (Lotensin) 20 mg DAILY ORAL 06/17/16 09:00 07/17/16 08:59 06/19/16 08:48 Cefepime HCl 1 gm/ Dextrose 50 ml @ 100 mls/hr Q12HR@0100,1300 IVPB 06/17/16 01:00 06/24/16 00:59 06/19/16 13:33 Clobetasol Propionate (Temovate) 1 applic TWICE A DAY TOPIC 06/17/16 20:30 07/17/16 20:29 06/19/16 08:52 Dextrose (Dextrose 50%) STAT PRN IV Hypoglycemia 06/16/16 19:30 07/16/16 19:29 Furosemide (Lasix) 20 mg DAILY ORAL 06/17/16 09:00 07/17/16 08:59 06/19/16 08:48 Heparin Sodium/ Sodium Chloride (Heparin 2000 units/Ns 1000ml premix) 2,000 unit ONCE PRN INJ PICC PLACEMENT 06/18/16 19:30 06/19/16 23:59 Hydromorphone HCl (Dilaudid) 2 mg Q4H PRN IVP Severe Pain (Pain Scale 7-10) 06/16/16 19:30 06/23/16 19:29 06/19/16 13:33 Lidocaine HCl (Xylocaine 1% 30ml) 30 ml ONCE PRN INJ PICC PLACEMENT 06/18/16 19:30 06/19/16 23:59 Metronidazole (Flagyl) 500 mg EVERY 8 HOURS ORAL 06/16/16 22:00 06/23/16 21:59 06/19/16 13:33 Non-Formulary Medication (Non-Formulary Med) 1 ea DAILY ORAL 06/17/16 09:00 07/17/16 08:59 UNV Promethazine HCl/ Codeine (Phenergan with Codeine) 5 ml Q4H PRN ORAL For Cough 06/17/16 10:45 07/17/16 10:44 06/18/16 08:57 Rivaroxaban (Xarelto) 20 mg DAILY ORAL 06/17/16 09:00 07/17/16 08:59 06/19/16 08:49 Sodium Bicarbonate (Sodium Bicarbonate) 50 ml ONCE PRN IV PICC PLACEMENT 06/18/16 19:30 06/19/16 23:59 Vancomycin HCl (Vanco rx to dose) 1 ea DAILY PRN MISC Per rx protocol 06/16/16 19:30 07/16/16 19:29 Vancomycin HCl/ Dextrose (Vancomycin/D5W) 275 ml @ 183.708 mls/hr Q12H IVPB 06/17/16 06:30 06/22/16 06:29 06/19/16 05:07 ASTER HACKETT Jun 19, 2016 14:43
[2016-06-19 15:50] LABS: ANION GAP 12 (5-15); CALCIUM 8.2 mg/dL (8.6-10.2); CARBON DIOXIDE 29 mEQ/L (20-30); CHLORIDE 97 mEQ/L (98-107); CREATININE 0.7 mg/dL (0.5-0.9); GLOMERULAR FILTRATION RATE > 60 mL/min (>60); HEMOLYSIS 3; POTASSIUM 4.2 mEQ/L (3.4-4.9); SODIUM 138 mEQ/L (135-145)
[2016-06-19 16:00] VITALS: BP_SYST 111; BP_DIAS 44; BP_DIAS 50
[2016-06-19] MEDS ORDERED: NS 550ML IV ONE (16:47)
--- NOTE | 2016-06-19 18:11 | Cardiology Progress Note ---
Assessment/Plan Assessment/Plan 1. Atypical chest pain, non-ischemic dobutamine stress echo with normal baseline LVEF. 2. Morbid obesity. 3. Hypertension, continue Benazepril. 4. Left lower extremity deep venous thrombosis, continue Xarelto. 5. Chronic pain syndrome. 6. History of leg cellulitis Subjective Subjective No cardiac events. No chest pain or SOB. Objective Last 24 Hour Vital Signs Date Time Temp Pulse Resp B/P Pulse Ox O2 Delivery O2 Flow Rate FiO2 06/19/16 16:00 97.0 80 17 111/44 96 Room Air 06/19/16 16:00 97.5 80 18 111/50 97 Room Air 06/19/16 14:03 97.3 06/19/16 12:00 97.6 89 20 136/82 96 Room Air 06/19/16 08:48 138/94 06/19/16 08:00 97.3 86 20 138/94 96 Room Air 06/19/16 04:00 98.6 88 18 143/79 Room Air 06/18/16 20:04 97.7 91 18 107/66 99 Room Air Intake and Output 06/18/16 06/19/16 19:00 07:00 Intake Total 770 ml 625.000 ml Output Total 700 ml Balance 770 ml -75.000 ml Intake Oral 720 ml 300 ml IV Total 50 ml 325.000 ml Output Urine Total 700 ml # Voids 3 # Bowel Movements 2 1 2D Echo: LVEF 55%, Mild LVH, RA/RV enlargement, RVSP 49 mmHg, IVC 2.1 cm Laboratory Tests Test 06/19/16 05:00 06/19/16 14:30 White Blood Count 12.8 K/UL (4.8-10.8) H Red Blood Count 5.08 M/UL (4.20-5.40) Hemoglobin 12.8 G/DL (12.0-16.0) Hematocrit 41.5 % (37.0-47.0) Mean Corpuscular Volume 82 FL (80-99) Mean Corpuscular Hemoglobin 25.1 PG (27.0-31.0) L Mean Corpuscular Hemoglobin Concent 30.7 G/DL (32.0-36.0) L Red Cell Distribution Width 14.9 % (11.6-14.8) H Platelet Count 200 K/UL (150-450) Mean Platelet Volume 7.3 FL (6.5-10.1) Neutrophils (%) (Auto) 74.2 % (45.0-75.0) Lymphocytes (%) (Auto) 17.0 % (20.0-45.0) L Monocytes (%) (Auto) 5.1 % (1.0-10.0) Eosinophils (%) (Auto) 2.6 % (0.0-3.0) Basophils (%) (Auto) 1.1 % (0.0-2.0) Sodium Level 139 mEQ/L (135-145) 138 mEQ/L (135-145) Potassium Level 5.1 mEQ/L (3.4-4.9) H 4.2 mEQ/L (3.4-4.9) Chloride Level 97 mEQ/L (98-107) L 97 mEQ/L (98-107) L Carbon Dioxide Level 26 mEQ/L (20-30) 29 mEQ/L (20-30) Anion Gap 16 (5-15) H 12 (5-15) Blood Urea Nitrogen 18 mg/dL (7-23) 16 mg/dL (7-23) Creatinine 0.7 mg/dL (0.5-0.9) 0.7 mg/dL (0.5-0.9) Estimat Glomerular Filtration Rate > 60 mL/min (>60) > 60 mL/min (>60) Glucose Level 91 mg/dL (74-106) 120 mg/dL (74-106) H Calcium Level 8.9 mg/dL (8.6-10.2) 8.2 mg/dL (8.6-10.2) L Objective GENERAL: The patient is a very unfortunate 55-year-old female, who is comfortable in no apparent respiratory distress. HEENT: Atraumatic and normocephalic. Anicteric. Pupils are equal, round, and reactive to light and accommodation. Extraocular muscles are intact. NECK: JVP cannot be evaluated. Bilateral carotid upstrokes 2+. No carotid bruit. LUNGS: Clear to auscultation bilaterally. CVS: Normal S1 and S2. Regular rate and rhythm. No murmurs, gallops, or rubs. PMI is at fourth intercostal space at left midclavicular line. ABDOMEN: Soft, nontender, and nondistended. No hepatosplenomegaly. Positive bowel sounds. EXTREMITIES: 1+edema B/L, chronic venous stasis, no clubbing or cyanosis. LALO WILL Jun 19, 2016 18:11
[2016-06-19] MEDS ORDERED: Vanco pharmacy to dose MISC (19:35)
[2016-06-19] MEDS ORDERED: FLAGYL500 MG ORAL (19:35)
--- NOTE | 2016-06-19 19:41 | Discharge Summary ---
Discharge Summary Hospital Course Date of Admission Jun 13, 2016 at 21:52 Date of Discharge Admitting Diagnosis chest pain HPI Marielle Mccormack is a 55 year old female who was admitted on Jun 13, 2016 at 21: 52 for Chest Pain Hospital Course Dictated no. [id number]. Discharge Discharge Disposition Patient was discharged to Discharge Diagnoses: JO SCHMID Jun 19, 2016 19:41
[2016-06-19] MEDS ORDERED: CEFEPIME-D1 GM/50 ML IVPB (19:52)
[2016-06-19 20:00] VITALS: BP 109/52
--- NOTE | 2016-06-19 22:39 | Discharge Summary ---
DATE OF ADMISSION: 06/13/2016 DATE OF DISCHARGE: 06/19/2015 ADMITTING DIAGNOSES: 1. Chest pain. 2. Bilateral lower leg swelling. 3. Hypertension. 4. Deep venous thrombosis of the left leg. 5. Chronic pain. 6. Obesity. 7. Leukocytosis. DISCHARGE DIAGNOSES: 1. Chest pain, resolved. 2. Bilateral lower extremity cellulitis. 3. Hypertension. 4. Deep venous thrombosis of the left leg. 5. Chronic pain syndrome. 6. Obesity. 7. Leukocytosis. HOSPITAL COURSE BY PROBLEM LIST: 1. Chest pain. Cardiology consultation was obtained with Dr. Vladislav Kennedy. The patient underwent a dobutamine echo stress test, which was normal. The patient is to follow up with Dr. Kennedy as an outpatient. 2. Left leg cellulitis. The patient was placed empirically on Levaquin upon admission. This was changed to cefepime and vancomycin. An Infectious Disease consultation was obtained with Dr. Javed. The patient is to continue intravenous vancomycin for a total of 10 days as an outpatient. The patient is transferred to [facility] for continued intravenous antibiotics. 3. Hypertension. The patient remained on benazepril 20 mg one tablet p.o. daily. The patient is to continue upon transfer to [facility] . 4. Deep venous thrombosis of the left leg. The patient remained on Xarelto during the hospitalization. The patient is to continue this as an outpatient. 5. Chronic pain. The patient received Dilaudid during the hospitalization. The patient is to continue pain management with oral [place] upon discharge. 6. Obesity. 7. Leukocytosis secondary to cellulitis as above. DISCHARGE MEDICATIONS: Please refer to discharge medication list. DISCHARGE INSTRUCTIONS: The patient is discharged to [facility] today, 06/19/2016. Trever Holguin M.D. DR: TRI JOB#: [id number] CC:
--- NOTE | 2016-06-20 09:09 | Diagnostic Imaging Report ---
Indications: Needs long-term IV access Technique: Procedure performed at bedside. Ultrasound confirms patent compressible left cephalic vein. Total sterile technique, including sterile probe cover and sterile gel, sterile gloves, hand hygiene, hat, mask,, sterile gown, large sterile drape, and preparation with 2% chlorhexidine utilized. Local anesthesia with 1% lidocaine. Under real-time ultrasound guidance, puncture vein using 21-gauge needle, passage 0.018 guidewire, exchange for 5 Macedonian peel-away sheath. 5 [place] Bard dual-lumen power PICC cut to 50 to cm. It was inserted through the peel-away sheath. Peel-away sheath and guidewire removed. Catheter fixed to the skin. Both catheter ports aspirated and flushed. Patient tolerated procedure well, without immediate complication. Followup chest x-ray obtained, documents catheter tip position at the high right atrium. Impression: Successful bedside placement of left arm PICC under sonographic guidance, as described above.
--- NOTE | 2016-06-21 16:19 | Diagnostic Imaging Report ---
APPROVED REPORT CPT Code: 70754 Present Symptoms Lower Extremity Edema: Bilateral BILATERAL: Imaging reveals a patent deep venous system bilaterally. There is no evidence of thrombus within the femoral, popliteal or tibial segments. The greater saphenous veins are also within normal limits. Doppler indicates normal spontaneous flow within these segments.
== END 2016-06-19 21:50 | DRG 603 ==
LOC: EMR 20:46 → 2E 21:52 → EDBEDREQ 06-14 02:19 → 4W 06-16 19:14
PROC: 02H633Z Insertion of Infusion Device into Right Atrium, Percutaneous Approach (ICD-10-PCS; principal; 2016-06-19)
DX: L03.116 Cellulitis of left lower limb (principal); E11.8 Type 2 diabetes mellitus with unspecified complications; Z68.43 Body mass index [BMI] 50.0-59.9, adult; I82.592 Chronic embolism and thrombosis of other specified deep vein of left lower extremity; R07.89 Other chest pain; L03.115 Cellulitis of right lower limb; I10 Essential (primary) hypertension; D64.9 Anemia, unspecified; G89.4 Chronic pain syndrome; Z79.01 Long term (current) use of anticoagulants; E66.01 Morbid (severe) obesity due to excess calories; Z88.2 Allergy status to sulfonamides
CPT/HCPCS: 36415; 36569; 71010; 76937; 80048; 80053; 80202; 82550; 82553; 84484; 85025; 85610; 85730; 93005; 93017; 93306; 93350; 93970

== ENCOUNTER → 2016-08-25 | Outpatient (CLI) | payer MEDICARE, OTHER ==
[~2016-08-25] MED LIST changes: +Vanco pharmacy to dose MISC
[2016-08-25 16:40] LABS: BASOPHILS % (AUTO) 1.2 % (0.0-2.0); EOSINOPHILS % (AUTO) 0.8 % (0.0-3.0); LYMPHOCYTES % (AUTO) 16.2 % (20.0-45.0); MEAN CORPUSCULAR HEMOGLOBIN 26.7 PG (27.0-31.0); MEAN CORPUSCULAR HGB CONC 32.2 G/DL (32.0-36.0); MEAN CORPUSCULAR VOLUME 83 FL (80-99); MEAN PLATELET VOLUME 5.8 FL (6.5-10.1); MONOCYTES % (AUTO) 4.9 % (1.0-10.0); PLATELET COUNT 300 K/UL (150-450); RED BLOOD COUNT 4.24 M/UL (4.20-5.40); RED CELL DISTRIBUTION WIDTH 14.5 % (11.6-14.8); WHITE BLOOD COUNT 12.9 K/UL (4.8-10.8)
[2016-08-25 16:59] LABS: ALANINE AMINOTRANSFERASE 9 U/L (3-33); ALBUMIN/GLOBULIN RATIO 0.8 (1.0-2.7); ANION GAP 13 (5-15); ASPARTATE AMINO TRANSFERASE 14 U/L (5-40); CALCIUM 9.3 mg/dL (8.6-10.2); CARBON DIOXIDE 30 mEQ/L (20-30); CHLORIDE 96 mEQ/L (98-107); CREATININE 0.7 mg/dL (0.5-0.9); GLOMERULAR FILTRATION RATE > 60 mL/min (>60); HEMOLYSIS 1; POTASSIUM 3.3 mEQ/L (3.4-4.9); SODIUM 139 mEQ/L (135-145); TOTAL PROTEIN 7.9 g/dL (6.6-8.7)
[2016-08-25 17:01] LABS: HEMOGLOBIN A1C 5.7 % (< 6.0)
[2016-08-25 17:48] LABS: APPEARANCE,URINE CLEAR; KETONES,URINE NEGATIVE (NEGATIVE); LEUKOCYTE ESTERASE ,URINE NEGATIVE (NEGATIVE); NITRITE,URINE NEGATIVE (NEGATIVE); PH,URINE 7 (4.5-8.0); PROTEIN,URINE NEGATIVE (NEGATIVE); UROBILINOGEN,URINE NORMAL MG/DL (0.0-1.0)
[2016-08-25 18:11] LABS: RBC,URINE TNTC /HPF (0 - 2)
[2016-08-25 18:12] LABS: BACTERIA,URINE FEW /HPF; SQUAMOUS EPITHELIAL CELL,UR OCCASIONAL /LPF (NONE/OCC)
== END | disposition home or self-care (01) ==
LOC: LAB 15:51
DX: E66.01 Morbid (severe) obesity due to excess calories (principal)
CPT/HCPCS: 36415; 80053; 81001; 83036; 85025

== ENCOUNTER 2016-09-14 14:08 | Outpatient (CLI) | payer MEDICARE, OTHER ==
--- NOTE | 2016-09-14 16:20 | Diagnostic Imaging Report ---
Indications: Right flank pain, hypertension, elevated renal function tests Technique: Transabdominal real-time grayscale and duplex Doppler imaging of the kidneys, retroperitoneum, and urinary bladder was performed Findings: Comparison: None Patient's body habitus significantly attenuates sonographic beam penetration, limiting evaluation. Right kidney measures approximately 9.3 cm in length. Normal contour, echotexture, cortical thickness. No stones, other focal lesions, hydronephrosis, or obvious perinephric abnormalities. Left kidney measures approximately 13.4 cm in length. Normal contour, echotexture, cortical thickness. No stones, other focal lesions, hydronephrosis, or obvious perinephric abnormalities. The intrahepatic portion of inferior vena cava is patent and normal caliber. The urinary bladder is collapsed or obscured. IMPRESSION: Apparent renal size asymmetry may be due to inaccurate measurements because of technical limitations described. Chronic right renal artery stenosis or other chronic insult not excludable. No obvious focal abnormality or hydronephrosis.
== END 2016-09-14 16:50 | disposition home or self-care (01) ==
LOC: ULS 14:08
DX: N93.9 Abnormal uterine and vaginal bleeding, unspecified (principal); I10 Essential (primary) hypertension; R10.9 Unspecified abdominal pain; R94.4 Abnormal results of kidney function studies
CPT/HCPCS: 76775

== ENCOUNTER 2016-09-27 12:29 | Inpatient (IN) | payer MEDICARE, OTHER ==
[2016-09-27] VITALS (8 sets, daily range): BP systolic 96–137; BP diastolic 56–81
[~2016-09-27] VITALS: Ht 175.3 cm; Wt 158.8 kg
[2016-09-27] MEDS ORDERED: HYDROmorphone 1mg/ml Carpuject IVP ONE (13:00)
--- NOTE | 2016-09-27 13:20 | Emergency Room Report ---
History of Present Illness General Chief Complaint: General Complaint Source: Patient Present Illness HPI The patient presents with right shoulder pain. It's been intermittent alternating with right flank pain. She had an ultrasound done several days ago to try and investigate the right flank pain. Since that time she's had heavy vaginal bleeding with passing clots. She uses 3 pads a day. She's on Xeralto. Her RESIDENT PHYSICIAN wanted to perform a CT of her abdomen and pelvis however she is too heavy for our scanner here. An outpatient CT scan was ordered. He RESIDENT PHYSICIAN did an irrigation and temporarily helped the bleeding. The bleeding returned after a recent ultrasound. She feels some dizziness when she stands and also has some shortness of breath The pain in her shoulder is posterior, not in the joint. Sharp and 9/10. She' s taken Vicodin and a topical medication and these decrease the pain to 5/10. She does not believe that it's her gout. She's had intermittent chills and felt feverish. She is also taking antibiotics for infection in her left heel. She was on a IV antibiotics recently in the hospital. She feels that the oral antibiotics are not helping at this time. She is on Xarelto for DVT. She also has shots in her abdomen to augment the Xarelto. She's not sure what that medicine is. She denies dysuria or change in bowels. She's not been vomiting. She has some slight chest pressure this left-sided it may be increased with exertion. This is less than the pain in her shoulder. Allergies: Coded Allergies: SULFA (SULFONAMIDE ANTIBIOTICS) (Unverified Allergy, Unknown, 05/02/15) allergy history per Dr. Jones Patient History Past Medical History: see triage record Social History: Denies: alcohol use, drug use, smoking Social History Narrative intermittently at [facility]. Came by bus. Reviewed Nursing Documentation: PMH: Agreed, PSxH: Agreed Nursing Documentation-PMH Past Medical History: No History, Except For Hx Cardiac Problems: Yes - HIV, blood clots Hx Hypertension: Yes Hx Asthma: Yes - Childhood Hx Cancer: No Hx Gastrointestinal Problems: Yes - GI bleeding Hx Neurological Problems: No Review of Systems All Other Systems: negative except mentioned in HPI Physical Exam Vital Signs Date Time Temp Pulse Resp B/P Pulse Ox O2 Delivery O2 Flow Rate FiO2 09/27/16 12:39 97.9 85 14 96/81 99 Room Air Sp02 EP Interpretation: reviewed, normal General Appearance: well appearing, no apparent distress, GCS 15 Head: normocephalic Eyes: bilateral eye PERRL, bilateral eye normal inspection ENT: moist mucus membranes - poor dentition Neck: supple Respiratory: lungs clear, normal breath sounds, other - see MS Cardiovascular #1: regular rate, rhythm, edema - 2-3+ brawney with venous disease Cardiovascular #2: 2+ radial (R) Gastrointestinal: normal inspection, normal bowel sounds, non tender, no mass, non-distended, overweight Musculoskeletal: no calf tenderness, other - PROM or R shoulder without pain. + muscle pain which re-creates pain one place near trapezius. DJD and venous disease bilat LE Neurologic: alert, oriented x3, motor strength/tone normal, DTRs symmetric, sensory intact, normal gait - with walker, speech normal Psychiatric: mood/affect normal Skin: warm/dry, other - venous disease with lesion L ankle - hard to tell erythema as hyperpigmentation Medical Decision Making Diagnostic Impression: Primary Impression: Vaginal bleeding Additional Impressions: Cellulitis of foot Anticoagulation on xarelto UTI (urinary tract infection) Qualified Codes: N30.00 - Acute cystitis without hematuria Morbid obesity Qualified Codes: E66.01 - Morbid (severe) obesity due to excess calories Leukocytosis Qualified Codes: D72.829 - Elevated white blood cell count, unspecified ER Course The patient presents with 3 main problems. Her main complaint is right shoulder pain that appears muscle skeletal on exam. Was evaluated with x-rays. The exam excludes gout. In addition to that she's got chest pain and vaginal bleeding while on Xarelto. This requires evaluation of her current CBC. She's too heavy for a CT scan her however she needs to be admitted to the hospital for observation. Finally she stating that her infection of her left heel is worsening on oral antibiotics. This needs to be evaluated. She'll be treated with analgesia and IV antibiotics. Unable to start IV. PICC line ordered. Labs with elevated WBC, pyuria. Elevated ESR. Shoulder xray with DJD. CXR unremarkable. Discussed with Dr. Jones requests Dr. Holguin. Discussed with Dr. Zuniga who requests pelvic u/s. States last U/S done January with attempt at biopsy (unsuccessful). Showed endometrial thickening. Discussed with Dr. Holguin who accepts patient. Laboratory Tests Test 09/27/16 12:52 09/27/16 13:40 Urine Color Yellow Urine Appearance Cloudy Urine pH 6.5 (4.5-8.0) Urine Specific [place] 1.010 (1.005-1.035) Urine Protein 2+ (NEGATIVE) H Urine Glucose (UA) Negative (NEGATIVE) Urine Ketones Negative (NEGATIVE) Urine Occult Blood 5+ (NEGATIVE) H Urine Nitrite Negative (NEGATIVE) Urine Bilirubin Negative (NEGATIVE) Urine Urobilinogen Normal MG/DL (0.0-1.0) Urine Leukocyte Esterase 2+ (NEGATIVE) H Urine RBC 60-80 /HPF (0 - 2) H Urine WBC 5-10 /HPF (0 - 2) H Urine Squamous Epithelial Cells Few /LPF (NONE/OCC) Urine Bacteria Few /HPF (NONE) White Blood Count 12.1 K/UL (4.8-10.8) H Red Blood Count 4.94 M/UL (4.20-5.40) Hemoglobin 12.1 G/DL (12.0-16.0) Hematocrit 40.1 % (37.0-47.0) Mean Corpuscular Volume 81 FL (80-99) Mean Corpuscular Hemoglobin 24.4 PG (27.0-31.0) L Mean Corpuscular Hemoglobin Concent 30.0 G/DL (32.0-36.0) L Red Cell Distribution Width 14.4 % (11.6-14.8) Platelet Count 307 K/UL (150-450) Mean Platelet Volume 7.0 FL (6.5-10.1) Neutrophils (%) (Auto) 77.2 % (45.0-75.0) H Lymphocytes (%) (Auto) 15.9 % (20.0-45.0) L Monocytes (%) (Auto) 5.4 % (1.0-10.0) Eosinophils (%) (Auto) 0.6 % (0.0-3.0) Basophils (%) (Auto) 0.9 % (0.0-2.0) Erythrocyte Sedimentation Rate 85 MM/HR (0-30) H Prothrombin Time 13.2 SEC (9.30-11.50) H Prothrombin Time INR 1.3 (0.9-1.1) H PTT 34 SEC (23-33) H Sodium Level 138 mEQ/L (135-145) Potassium Level 3.9 mEQ/L (3.4-4.9) Chloride Level 96 mEQ/L (98-107) L Carbon Dioxide Level 29 mEQ/L (20-30) Anion Gap 13 (5-15) Blood Urea Nitrogen 12 mg/dL (7-23) Creatinine 0.7 mg/dL (0.5-0.9) Estimate Glomerular Filtration Rate > 60 mL/min (>60) Glucose Level 89 mg/dL (74-106) Calcium Level 9.0 mg/dL (8.6-10.2) Total Bilirubin < 0.2 mg/dL (0.0-1.2) Aspartate Amino Transferase (AST) 14 U/L (5-40) Alanine Aminotransferase (ALT) 10 U/L (3-33) Alkaline Phosphatase 71 U/L (35-104) Total Creatine Kinase 181 U/L (26-140) H Troponin I < 0.30 ng/mL (<=0.30) Pro-B-Type Natriuretic Peptide 29 pg/mL (0-125) Total Protein 7.2 g/dL (6.6-8.7) Albumin 3.6 g/dL (3.5-5.2) Globulin 3.6 g/dL Albumin/Globulin Ratio 1.0 (1.0-2.7) EKG Diagnostic Results Rate: normal Rhythm: NSR ST Segments: no acute changes Rhythm Strip Diag. Results EP Interpretation: yes Rhythm: NSR, no PVC's, no ectopy Chest X-Ray Diagnostic Results EP Interpretation: Yes Findings: no consolidation, no effusion, no pneumothorax, no acute cardiopulmonary disease Number of Views: 1 Other X-Ray Diagnostic Results Other X-Ray Diagnostic Results : X-Ray Ordered: L shoulder EP Interpretation: Yes Findings: no fractures, no dislocation, no soft tissue swelling, other - calcific tendonitis, djd Number of Views: 3 CT/MRI/US Diagnostic Results CT/MRI/US Diagnostic Results : Imaging Test Ordered: pelvic US Impression Impression: Multiple uterine fibroids. Limited exam as discussed Last Vital Signs Date Time Temp Pulse Resp B/P Pulse Ox O2 Delivery O2 Flow Rate FiO2 09/27/16 23:46 96.6 78 19 119/56 100 Room Air Status: improved Disposition: ADMITTED INPATIENT Condition: Serious Flako Nunes M.D. September 27, 2016 13:20
--- NOTE | 2016-09-27 13:36 | Diagnostic Imaging Report ---
Indication: Chest Pain Comparison: 2-17 A single view chest radiograph was obtained. Findings: Cardiomediastinal appearance is within normal limits for age. Pulmonary vascularity is appropriate. The diaphragmatic contour is smooth and costophrenic angles are sharp. No pleural effusions are identified. The bones are unremarkable. Impression: No acute findings
--- NOTE | 2016-09-27 13:36 | Diagnostic Imaging Report ---
Indication: Pain Findings: 3 views of the right shoulder were obtained. No acute fractures, malalignment, erosions or periostitis are identified. Bone mineralization is within normal limits. Soft tissues are unremarkable. Impression: Negative examination of the shoulder.
[2016-09-27 13:57] LABS: BASOPHILS % (AUTO) 0.9 % (0.0-2.0); EOSINOPHILS % (AUTO) 0.6 % (0.0-3.0); LYMPHOCYTES % (AUTO) 15.9 % (20.0-45.0); MEAN CORPUSCULAR HEMOGLOBIN 24.4 PG (27.0-31.0); MEAN CORPUSCULAR VOLUME 81 FL (80-99); MONOCYTES % (AUTO) 5.4 % (1.0-10.0); NEUTROPHILS % (AUTO) 77.2 % (45.0-75.0); PLATELET COUNT 307 K/UL (150-450); RED BLOOD COUNT 4.94 M/UL (4.20-5.40); RED CELL DISTRIBUTION WIDTH 14.4 % (11.6-14.8); WHITE BLOOD COUNT 12.1 K/UL (4.8-10.8)
[2016-09-27 14:09] LABS: INR 1.3 (0.9-1.1); PROTHROMBIN TIME 13.2 SEC (9.30-11.50)
[2016-09-27 14:15] LABS: TROPONIN I < 0.30 ng/mL (<=0.30)
[2016-09-27] MEDS ORDERED: Lidocaine 1% Plain 30 ml INJ ONE (14:15)
[2016-09-27 14:26] LABS: ALANINE AMINOTRANSFERASE 10 U/L (3-33); ANION GAP 13 (5-15); ASPARTATE AMINO TRANSFERASE 14 U/L (5-40); CARBON DIOXIDE 29 mEQ/L (20-30); CHLORIDE 96 mEQ/L (98-107); CREATININE 0.7 mg/dL (0.5-0.9); GLOMERULAR FILTRATION RATE > 60 mL/min (>60); HEMOLYSIS 2; POTASSIUM 3.9 mEQ/L (3.4-4.9); SODIUM 138 mEQ/L (135-145); TOTAL PROTEIN 7.2 g/dL (6.6-8.7)
[2016-09-27 14:33] LABS: APPEARANCE,URINE CLOUDY; KETONES,URINE NEGATIVE (NEGATIVE); LEUKOCYTE ESTERASE ,URINE 2+ (NEGATIVE); NITRITE,URINE NEGATIVE (NEGATIVE); PH,URINE 6.5 (4.5-8.0); PROTEIN,URINE 2+ (NEGATIVE); UROBILINOGEN,URINE NORMAL MG/DL (0.0-1.0)
[2016-09-27 15:11] LABS: ERYTHROCYTE SEDIMENTATION RATE 85 MM/HR (0-30)
[2016-09-27 15:15] LABS: BACTERIA,URINE FEW /HPF; RBC,URINE 60-80 /HPF (0 - 2); SQUAMOUS EPITHELIAL CELL,UR FEW /LPF (NONE/OCC)
[2016-09-27] MEDS ORDERED: Vancomycin 1.5 GM in D5W 325 ML IVPB STA (15:25)
[2016-09-27] MEDS ORDERED: Cefepime HCl 1 GM in D5W 55 ML IVPB ONE (15:30)
[2016-09-27] MEDS ORDERED: metroNIDAZOLE 500mg 100 ML IVPB ONE (15:30)
[2016-09-27] MEDS ORDERED: Vancomycin 1gm inj IVPB ONE (16:27)
[2016-09-27] MEDS ORDERED: Cefepime 1gm vial ONE (16:28)
--- NOTE | 2016-09-27 16:45 | Diagnostic Imaging Report ---
Indication:Lower abdominal and pelvic pain Technique: Grayscale and duplex Doppler imaging of the pelvis performed utilizing a transabdominal scan and endovaginal scan. Comparison: None Findings: The study was very limited in part due to patient's size. There are multiple calcifications scattered diffusely in the uterus due to fibroids. In the central uterus there is one discrete mass identified measuring 4.5 cm x 2.6 cm. The endometrium is not well seen. Neither ovary is identified. The uterus measures approximately 15 x 12 x 8 cm Impression: Multiple uterine fibroids. Limited exam as discussed
[2016-09-27] MEDS ORDERED: Milk of Magnesia 30ml Ud ORAL PRN (17:30)
[2016-09-27] MEDS ORDERED: LORazepam 1mg tab ORAL PRN (17:30)
[2016-09-27] MEDS ORDERED: Tylenol #3 tab (300mg/30mg) ORAL PRN ×2 (17:30)
[2016-09-27] MEDS ORDERED: Docusate 100mg cap ORAL SCH (18:00)
[2016-09-27] MEDS: Xarelto 10mg tab ORAL SCH (19:30)
[2016-09-27] MEDS: Docusate 100mg cap ORAL SCH (20:18)
[2016-09-27] MEDS ORDERED: Zolpidem 5mg tab ORAL PRN (21:00)
[2016-09-28] MEDS: Vancomycin 1gm in Dextrose 275ml IVPB SCH ×3 (01:33→18:01)
[2016-09-28 04:00] VITALS: BP 126/57
[2016-09-28] MEDS: Cefepime HCl 1 GM in D5W 55 ML IVPB SCH ×2 (05:41→17:01)
[2016-09-28 06:43] LABS: BASOPHILS % (AUTO) 0.9 % (0.0-2.0); EOSINOPHILS % (AUTO) 1.3 % (0.0-3.0); LYMPHOCYTES % (AUTO) 14.4 % (20.0-45.0); MEAN CORPUSCULAR HEMOGLOBIN 24.6 PG (27.0-31.0); MEAN CORPUSCULAR HGB CONC 30.2 G/DL (32.0-36.0); MEAN CORPUSCULAR VOLUME 82 FL (80-99); MEAN PLATELET VOLUME 7.2 FL (6.5-10.1); MONOCYTES % (AUTO) 7.1 % (1.0-10.0); NEUTROPHILS % (AUTO) 76.2 % (45.0-75.0); PLATELET COUNT 281 K/UL (150-450); RED CELL DISTRIBUTION WIDTH 14.6 % (11.6-14.8); WHITE BLOOD COUNT 10.8 K/UL (4.8-10.8)
[2016-09-28 06:50] LABS: ANION GAP 11 (5-15); CARBON DIOXIDE 31 mEQ/L (20-30); CHLORIDE 99 mEQ/L (98-107); CREATININE 0.7 mg/dL (0.5-0.9); GLOMERULAR FILTRATION RATE > 60 mL/min (>60); HEMOLYSIS 3; POTASSIUM 3.8 mEQ/L (3.4-4.9); SODIUM 141 mEQ/L (135-145)
[2016-09-28 08:27] VITALS: BP 99/63
[2016-09-28] MEDS: Docusate 100mg cap ORAL SCH ×2 (09:32→21:03)
[2016-09-28 11:47] VITALS: BP 127/89
--- NOTE | 2016-09-28 16:03 | Infectious Diseases Prog Note ---
Assessment/Plan Assessment/Plan Full consult dictated: A) 1) bilateral leg cellulitis - L > R 2) vaginal bleed 3) allergies - sulfa P) 1) vancomycin and cefepime 2) check labs 3) continue other treatment per Dr. Holguin 4) thank you Subjective Allergies: Coded Allergies: SULFA (SULFONAMIDE ANTIBIOTICS) (Unverified Allergy, Unknown, 05/02/15) allergy history per Dr. Jones Objective Vital Signs Last 24 Hour Vital Signs Date Time Temp Pulse Resp B/P Pulse Ox O2 Delivery O2 Flow Rate FiO2 09/28/16 11:47 98.4 73 20 127/89 97 Room Air 09/28/16 08:27 98.2 90 20 99/63 98 Room Air 09/28/16 04:00 97.6 80 19 126/57 98 Room Air 09/27/16 23:46 96.6 78 19 119/56 100 Room Air 09/27/16 20:00 96.3 79 19 116/56 99 Room Air 09/27/16 17:56 96.8 81 20 137/73 99 Room Air 09/27/16 17:15 97.8 77 16 105/60 100 Room Air 09/27/16 16:57 97.8 09/27/16 16:30 77 16 105/60 100 Room Air Height (Feet): 5 Height (Inches): 9.00 Weight (Pounds): 350 Laboratory Tests Test 09/28/16 06:00 White Blood Count 10.8 K/UL (4.8-10.8) Red Blood Count 4.40 M/UL (4.20-5.40) Hemoglobin 10.8 G/DL (12.0-16.0) L Hematocrit 35.9 % (37.0-47.0) L Mean Corpuscular Volume 82 FL (80-99) Mean Corpuscular Hemoglobin 24.6 PG (27.0-31.0) L Mean Corpuscular Hemoglobin Concent 30.2 G/DL (32.0-36.0) L Red Cell Distribution Width 14.6 % (11.6-14.8) Platelet Count 281 K/UL (150-450) Mean Platelet Volume 7.2 FL (6.5-10.1) Neutrophils (%) (Auto) 76.2 % (45.0-75.0) H Lymphocytes (%) (Auto) 14.4 % (20.0-45.0) L Monocytes (%) (Auto) 7.1 % (1.0-10.0) Eosinophils (%) (Auto) 1.3 % (0.0-3.0) Basophils (%) (Auto) 0.9 % (0.0-2.0) Sodium Level 141 mEQ/L (135-145) Potassium Level 3.8 mEQ/L (3.4-4.9) Chloride Level 99 mEQ/L (98-107) Carbon Dioxide Level 31 mEQ/L (20-30) H Anion Gap 11 (5-15) Blood Urea Nitrogen 12 mg/dL (7-23) Creatinine 0.7 mg/dL (0.5-0.9) Estimat Glomerular Filtration Rate > 60 mL/min (>60) Glucose Level 111 mg/dL (74-106) H Calcium Level 9.0 mg/dL (8.6-10.2) Current Medications Medications (Trade) Dose Ordered Sig/Key Route PRN Reason Start Time Stop Time Status Last Admin Dose Admin Acetaminophen (Tylenol) 650 mg Q4H PRN ORAL Mild Pain (Pain Scale 1-3) 09/27/16 17:30 10/27/16 17:29 Acetaminophen/ Codeine Phosphate (Tylenol #3) 1 tab Q4H PRN ORAL Moderate Pain (Pain Scale 4-6) 09/27/16 17:30 10/04/16 17:29 Acetaminophen/ Codeine Phosphate (Tylenol #3) 2 tab Q6H PRN ORAL Severe Pain (Pain Scale 7-10) 09/27/16 17:30 10/04/16 17:29 09/27/16 22:11 Cefepime HCl/ Dextrose (Maxipime/D5W) 55 ml @ 110 mls/hr Q12HR@0600,1800 IVPB 09/28/16 06:00 10/05/16 05:59 09/28/16 05:41 Dextrose (Dextrose 50%) STAT PRN IV Hypoglycemia 09/27/16 17:30 10/27/16 17:29 Diphenhydramine HCl (Benadryl) 25 mg Q6H PRN ORAL Itching/Pruritis 09/27/16 18:30 10/27/16 18:29 Docusate Sodium (Colace) 100 mg EVERY 12 HOURS ORAL 09/27/16 21:00 10/27/16 20:59 09/28/16 09:32 Furosemide (Lasix) 20 mg DAILY ORAL 09/28/16 09:00 10/28/16 08:59 09/28/16 09:32 Hydrochlorothiazide (Hydrodiuril) 25 mg DAILY ORAL 09/28/16 09:00 10/28/16 08:59 09/28/16 09:32 Lorazepam (Ativan) 1 mg Q4H PRN ORAL For Anxiety 09/27/16 17:30 10/04/16 17:29 Magnesium Hydroxide (Mom) 30 ml HSPRN PRN ORAL Constipation 09/27/16 17:30 10/27/16 17:29 Ondansetron HCl (Zofran) 4 mg Q6H PRN IVP Nausea & Vomiting 09/27/16 17:30 10/27/16 17:29 Pantoprazole (Protonix) 40 mg DAILY ORAL 09/28/16 09:00 10/28/16 08:59 09/28/16 09:32 Rivaroxaban 20 mg 20 mg QPM ORAL 09/27/16 19:30 10/27/16 19:29 Vancomycin HCl 1 ea 1 ea DAILY PRN MISC Per rx protocol 09/27/16 17:30 10/27/16 17:29 Vancomycin HCl/ Dextrose (Vancomycin/D5W) 275 ml @ 183.708 mls/hr Q8HR@0200,1000,1800 IVPB 09/28/16 02:00 10/03/16 01:59 09/28/16 09:33 Zolpidem Tartrate (Ambien) 5 mg HSPRN PRN ORAL Insomnia 09/27/16 21:00 10/27/16 20:59 ASTER HACKETT September 28, 2016 16:03
[2016-09-28 16:04] VITALS: BP 114/83
[2016-09-28] MEDS: Xarelto 10mg tab ORAL SCH (16:30)
[2016-09-28] MEDS ORDERED: HYDROmorphone 1mg/ml Carpuject SUBQ PRN (18:30)
--- NOTE | 2016-09-28 18:35 | History & Physical ---
History and Physical History & Physicial Dictated no. [id number]. JO SCHMID September 28, 2016 18:35
[2016-09-28 20:00] VITALS: BP 112/51
--- NOTE | 2016-09-28 22:16 | Consultation ---
DATE OF CONSULTATION: 09/28/2016 INFECTIOUS DISEASE CONSULTATION CONSULTING PHYSICIAN: Slim Javed M.D. ATTENDING PHYSICIAN: Trever Holguin M.D. REASON FOR CONSULTATION: Bilateral leg cellulitis, left greater than right and leukocytosis. CHIEF COMPLAINT: The patient's chief complaint coming in to the hospital is vaginal bleed and bilateral leg swelling and cellulitis. HISTORY OF PRESENT ILLNESS: This is a 55-year-old female, who comes in to [facility] with bilateral leg swelling. The patient also came in with vaginal bleed. Clinically, the patient has warmth and redness of the lower extremities especially on the left leg. There are no significant wounds or drainage at this time. She said she had drainage in the wounds, but upon reviewing both legs, there were no draining wounds. An Infectious Disease consultation has been requested for antibiotic management. The patient also had a leukocytosis. The patient is on vancomycin and cefepime. The patient has a history of recurrent cellulitis in the past. She has also chronic edema of the lower extremities. MAR was noted. Orders were noted. Notes and records were reviewed. PAST MEDICAL HISTORY: The patient's past medical history includes the history of following: The patient has a history of recurrent bilateral leg cellulitis, history of leg edema, and history of DVT. She has a history of hypertension. There is no history of diabetes. She has a history of cardiac disease, history of GI bleed, and history of asthma. Please see past medical history in medical order. MEDICATIONS: Upon reviewing the MAR, she is on the following medications. She is on Protonix, Lasix, hydrochlorothiazide, cefepime, vancomycin, Colace, Ambien, Xarelto, Benadryl, Tylenol, , Zofran, lorazepam, and acetaminophen. ALLERGIES: She does have sulfa allergy. SOCIAL HISTORY: Negative for smoking, alcohol, or drug abuse. FAMILY HISTORY: Noncontributory. Negative for exposure to tuberculosis or cancer. REVIEW OF SYSTEMS: Constitutional: The patient has no fever, chills, or night sweats. She has generalized weakness and fatigue. No weight loss. Head And Neck: No thrush or dysphagia. Cardiac: No chest pain. No pressors or palpitations. Gastrointestinal: No nausea, vomiting, or diarrhea. Genitourinary: No Shah. No dysuria or frequency of urination. She does have vaginal bleed. Pulmonary: No congestion or shortness of breath. Skin: No rash. Neurologic: No seizures. Extremities: She has extremity swelling and pain. PHYSICAL EXAMINATION: GENERAL: Alert, responsive, oriented x3, and in no acute distress. VITAL SIGNS: Temperature is 97.9 degrees, pulse rate 84, respiratory rate 20, blood pressure 114/83, and saturation is 99% on room air.. HEAD AND NECK: Oral exam, no thrush. Eye exam, no icterus. Normocephalic. No facial droop. No neck stiffness. HEART: Regular. No gallop or murmur. No friction rub. LUNGS: Clear bilaterally. No rhonchi or rales. ABDOMEN: Soft. Positive bowel sounds. Nontender. SKIN: No rash or dermatitis. MUSCULOSKELETAL: No evidence of arthritis. EXTREMITIES: Lower extremity exam, she has chronic leg edema, however, she does have warmth on the left and right legs, however, especially on the left leg. No draining wounds. PERIPHERAL VASCULAR: No cyanosis or gangrene. RECTAL: Deferred. GENITOURINARY: No Shah. LINES: Line sites are without phlebitis. NEUROLOGIC: Intact and nonfocal. LABORATORY AND DIAGNOSTIC DATA: Laboratory data is as follows: Hemoglobin 10.8 and white count 10.8. White count on admission 12.1. The patient's creatinine is 0.7. Urinalysis did have 2+ leukocyte esterase, 5 to 10 white blood cells, mostly hematuria, 60 to 80 RBCs. I believe the urine culture has been ordered, but I will not check here. Blood cultures were ordered and pending. IMAGING STUDIES: Chest x-ray showed no acute disease. No acute findings. Vaginal ultrasound showed multiple uterine fibroids. ASSESSMENT AND PLAN: 1. The patient has bilateral leg cellulitis, left greater than right. Continue vancomycin and cefepime. Watch the patient clinically. Watch creatinine closely on vancomycin. Continue skin care protocol. 2. Elevated white count has improved. 3. Questionable urinary tract infection with positive urinalysis and hematuria and positive white cells and leukocyte esterase. Continue cefepime. Check urine culture. 4. Vaginal bleed. 5. Uterine fibroids. 6. Hypertension. 7. History of blood clots and deep venous thrombosis. 8. History of recurrent lower extremity cellulitis. 9. History of leg edema. 10. Blood pressure control per primary. 11. Anemia. 12. History of asthma. 13. History of gastrointestinal bleed. 14. Allergy to sulfa. 15. Social history is negative. 16. Family history is noncontributory. 17. MAR was noted. 18. Notes and records were reviewed. 19. Case was discussed with RN. 20. Continue treatment per primary consultants. 21. We will continue vancomycin and cefepime for gram-negative methicillin-resistant Staphylococcus aureus coverage and Streptococcus coverage for the lower extremity cellulitis. Slim Javed M.D. DR: ADWOA JOB#: [id number] CC:
[2016-09-29] VITALS: BP 114/71
--- NOTE | 2016-09-29 00:46 | History and Physical Report ---
DATE OF ADMISSION: 09/27/2016 CHIEF COMPLAINT: The patient is a 55-year-old female, who presents with a chief complaint of, 1. Right shoulder pain. 2. Right flank pain. 3. Vaginal bleeding. 4. Redness of the bilateral legs. HISTORY OF PRESENT ILLNESS: The patient was admitted to [facility] [place] in May of 2016. Please see history and physical and discharge summary dictated at that time. The patient states she began to experience right shoulder pain a couple days ago. Right shoulder pain radiates to the right flank. The patient also complains of vaginal bleeding. This is new for her. The patient also has a history of deep venous thrombosis in bilateral lower extremities. The patient states her legs have become increasingly red and warm to the touch over the past few days. The patient was on antibiotics recently by her primary care physician, Dr. Curt Jones. The patient does not know what type of antibiotic she was on. The patient presented to [place] emergency room. The patient was found to have urinary tract infection. The patient was admitted for bilateral lower extremity cellulitis and urinary tract infection. The patient was also admitted for postmenopausal vaginal bleeding. PAST MEDICAL HISTORY: Significant for, 1. Hypertension. 2. Deep venous thrombosis of the bilateral lower extremities, currently on Xarelto. 3. Chronic pain syndrome. 4. Previous history of bilateral leg cellulitis. PAST SURGICAL HISTORY: The patient denies. CURRENT MEDICATIONS: 1. Tylenol No. 3, one to two tablets p.o. q.6 hours p.r.n. 2. Benazepril 20 mg one tablet p.o. daily. 3. Colace 100 mg one tablet p.o. twice daily. 4. Uloric 40 mg one tablet p.o. daily. 5. Lasix 20 mg one tablet p.o. daily. 6. Hydrochlorothiazide 25 mg one tablet p.o. daily. 7. Xarelto 10 mg one tablet p.o. twice daily. ALLERGIES: To sulfa. SOCIAL HISTORY: The patient is . The patient lives alone. The patient denies tobacco or alcohol use. The patient is disabled and uses a wheelchair for ambulation. REVIEW OF SYSTEMS: Constitutional: The patient denies weight loss or weight gain. The patient denies fevers or chills. HEENT: The patient denies ear or throat pain. Cardiovascular: The patient denies palpitations or chest pain. Chest: The patient denies wheeze or shortness of breath. Abdomen: The patient denies nausea, vomiting, diarrhea, or constipation. Genitourinary: The patient complains of menorrhagia as above. The patient denies dysuria or increased frequency of urination. Neuromuscular: The patient complains of bilateral leg pain and erythema as above. The patient denies seizures or generalized weakness. PHYSICAL EXAM: VITAL SIGNS: Temperature 96.3 degrees, respirations 19, pulse 79, and blood pressure 116/56. GENERAL: The patient is a well-developed and well nourished, morbidly obese female, in no apparent distress. HEENT: Eyes, pupils are equal and responsive to light and accommodation. Extraocular movements are intact. NECK: Supple without lymphadenopathy. CHEST: Lungs are clear to auscultation bilaterally without wheezes or rales. CARDIOVASCULAR: Regular rhythm and rate. S1 and S2 are normal without murmurs, rubs, or gallops. ABDOMEN: Soft, nontender, and nondistended. Positive bowel sounds. No evidence of hepatosplenomegaly. Currently, no rebound or guarding noted. EXTREMITIES: Negative for clubbing, cyanosis, or edema. RECTAL/GENITAL: Refused. NEUROLOGICAL: Current nerves II through XII are grossly intact without focal deficits. Motor strength is 5/5 bilaterally. Deep tendon reflexes are 2+ plantar. LABORATORY STUDIES: WBC 12.1, hemoglobin 12.1, hematocrit 40.1, and platelets 307,000. Sodium 138, potassium 3.9, chloride 96, CO2 29, BUN 12, creatinine 0.7, and glucose 89. ProTime 13.2 and INR 1.3. PTT 34. Urinalysis showed 2+ protein, 5+ occult blood, 2+ leukocyte esterase with 60 to 80 RBCs, and 5 to 10 WBCs. ASSESSMENT: This is a 55-year-old female. 1. Right shoulder pain. 2. Right flank pain. 3. Post menopausal vaginal bleeding. 4. Cellulitis of bilateral lower extremities. 5. Anemia. 6. Urinary tract infection. 7. Deep venous thrombosis of bilateral lower extremities. 8. Hypertension. 9. Gout. 10. History of morbid obesity. TREATMENT: 1. Right shoulder pain/right flank pain. The source of the pain is unknown. An x-ray of the right shoulder is pending. The patient is currently requesting Dilaudid in place of Tylenol number No. 3 as above. 2. Cellulitis of bilateral lower extremities. An Infectious Disease consultation will be obtained with Dr. Javed. The patient has been placed empirically on vancomycin and cefepime intravenously. 3. Postmenopausal bleeding. An [employer] consultation will be obtained with Dr. Zuniga. Serial CBCs will be run. A pelvic ultrasound in emergency room revealed uterine fibroids. The patient may require total abdominal hysterectomy. We will follow recommendations of Gynecology. 4. Anemia, postmenopausal bleeding as above. 5. Urinary tract infection. As above, the patient has been started empirically on vancomycin and cefepime. An Infectious Disease consultation was obtained with Dr. Javed. Urine culture is pending. 6. Deep venous thrombosis of bilateral legs. Continue Xarelto as above. A venous duplex Doppler is pending. 7. Hypertension. The patient to be continued on benazepril as above. 8. Gout. Continue Lyrica as above. Trever Holguin M.D. DR: TRI JOB#: [id number] CC:
[2016-09-29] MEDS: Vancomycin 1gm in Dextrose 275ml IVPB SCH ×3 (01:41→18:55)
[2016-09-29 04:00] VITALS: BP 125/84
[2016-09-29] MEDS: Cefepime HCl 1 GM in D5W 55 ML IVPB SCH ×2 (05:33→17:40)
[2016-09-29 07:36] LABS: EOSINOPHILS % (AUTO) 2.1 % (0.0-3.0); LYMPHOCYTES % (AUTO) 17.3 % (20.0-45.0); MEAN CORPUSCULAR HEMOGLOBIN 24.4 PG (27.0-31.0); MEAN CORPUSCULAR HGB CONC 30.1 G/DL (32.0-36.0); MEAN CORPUSCULAR VOLUME 81 FL (80-99); MEAN PLATELET VOLUME 7.6 FL (6.5-10.1); MONOCYTES % (AUTO) 8.5 % (1.0-10.0); NEUTROPHILS % (AUTO) 71.1 % (45.0-75.0); PLATELET COUNT 244 K/UL (150-450); RED BLOOD COUNT 4.19 M/UL (4.20-5.40); RED CELL DISTRIBUTION WIDTH 14.5 % (11.6-14.8); WHITE BLOOD COUNT 10.4 K/UL (4.8-10.8)
[2016-09-29 08:09] LABS: ANION GAP 10 (5-15); CALCIUM 8.9 mg/dL (8.6-10.2); CARBON DIOXIDE 32 mEQ/L (20-30); CHLORIDE 93 mEQ/L (98-107); CREATININE 0.7 mg/dL (0.5-0.9); GLOMERULAR FILTRATION RATE > 60 mL/min (>60); HEMOLYSIS 1; POTASSIUM 3.5 mEQ/L (3.4-4.9); SODIUM 135 mEQ/L (135-145)
[2016-09-29 08:15] VITALS: BP 125/75
[2016-09-29] MEDS: Docusate 100mg cap ORAL SCH ×2 (08:32→22:50)
[2016-09-29 12:15] VITALS: BP 131/84
[2016-09-29] MEDS ORDERED: NS 275ml ONE (15:27)
[2016-09-29 16:15] VITALS: BP 112/80
[2016-09-29] MEDS: Xarelto 10mg tab ORAL SCH (17:38)
--- NOTE | 2016-09-29 18:13 | Internal Med Progress Note ---
Subjective Date of Service: September 29, 2016 Physician Name Trever cShmid Attending Physician Trever Schmid Current Medications Medications (Trade) Dose Ordered Sig/Key Route PRN Reason Start Time Stop Time Status Last Admin Dose Admin Acetaminophen (Tylenol) 650 mg Q4H PRN ORAL Mild Pain (Pain Scale 1-3) 09/27/16 17:30 10/27/16 17:29 Cefepime HCl/ Dextrose (Maxipime/D5W) 55 ml @ 110 mls/hr Q12HR@0600,1800 IVPB 09/28/16 06:00 10/05/16 05:59 09/29/16 17:40 Dextrose (Dextrose 50%) STAT PRN IV Hypoglycemia 09/27/16 17:30 10/27/16 17:29 Diphenhydramine HCl (Benadryl) 25 mg Q6H PRN ORAL Itching/Pruritis 09/27/16 18:30 10/27/16 18:29 Docusate Sodium (Colace) 100 mg EVERY 12 HOURS ORAL 09/27/16 21:00 10/27/16 20:59 09/29/16 08:32 Furosemide (Lasix) 20 mg DAILY ORAL 09/28/16 09:00 10/28/16 08:59 09/29/16 08:36 Hydrochlorothiazide (Hydrodiuril) 25 mg DAILY ORAL 09/28/16 09:00 10/28/16 08:59 09/29/16 08:33 Hydromorphone HCl (Dilaudid) 1 mg Q4H PRN SUBQ Moderate Pain (Pain Scale 4-6) 09/28/16 18:30 10/05/16 18:29 Hydromorphone HCl (Dilaudid) 2 mg Q4H PRN IVP Severe Pain (Pain Scale 7-10) 09/28/16 18:30 10/05/16 18:29 09/29/16 14:42 Lorazepam (Ativan) 1 mg Q4H PRN ORAL For Anxiety 09/27/16 17:30 10/04/16 17:29 Magnesium Hydroxide (Mom) 30 ml HSPRN PRN ORAL Constipation 09/27/16 17:30 10/27/16 17:29 Ondansetron HCl (Zofran) 4 mg Q6H PRN IVP Nausea & Vomiting 09/27/16 17:30 10/27/16 17:29 Pantoprazole (Protonix) 40 mg DAILY ORAL 09/28/16 09:00 10/28/16 08:59 09/29/16 08:33 Rivaroxaban 20 mg 20 mg QPM ORAL 09/27/16 19:30 10/27/16 19:29 09/29/16 17:38 Vancomycin HCl 1 ea 1 ea DAILY PRN MISC Per rx protocol 09/27/16 17:30 10/27/16 17:29 Vancomycin HCl/ Dextrose (Vancomycin/D5W) 275 ml @ 183.708 mls/hr Q8HR@0200,1000,1800 IVPB 09/28/16 02:00 10/03/16 01:59 09/29/16 11:13 Zolpidem Tartrate (Ambien) 5 mg HSPRN PRN ORAL Insomnia 09/27/16 21:00 10/27/16 20:59 Allergies: Coded Allergies: SULFA (SULFONAMIDE ANTIBIOTICS) (Unverified Allergy, Unknown, 05/02/15) allergy history per Dr. Robert BAUER Limited/Unobtainable: No Constitutional: Reports: no symptoms HEENT: Reports: no symptoms Cardiovascular: Reports: no symptoms Respiratory: Reports: no symptoms Gastrointestinal/Abdominal: Reports: no symptoms Genitourinary: Reports: no symptoms Neurologic/Psychiatric: Reports: no symptoms Subjective 55 YO F admitted with right shoulder and flank pain. Now cellulitis bilat legs. Objective Last Vital Signs Date Time Temp Pulse Resp B/P Pulse Ox O2 Delivery O2 Flow Rate FiO2 09/29/16 16:15 98.7 81 22 112/80 99 Room Air Laboratory Tests Test 09/29/16 07:00 White Blood Count 10.4 K/UL (4.8-10.8) Red Blood Count 4.19 M/UL (4.20-5.40) L Hemoglobin 10.2 G/DL (12.0-16.0) L Hematocrit 34.0 % (37.0-47.0) L Mean Corpuscular Volume 81 FL (80-99) Mean Corpuscular Hemoglobin 24.4 PG (27.0-31.0) L Mean Corpuscular Hemoglobin Concent 30.1 G/DL (32.0-36.0) L Red Cell Distribution Width 14.5 % (11.6-14.8) Platelet Count 244 K/UL (150-450) Mean Platelet Volume 7.6 FL (6.5-10.1) Neutrophils (%) (Auto) 71.1 % (45.0-75.0) Lymphocytes (%) (Auto) 17.3 % (20.0-45.0) L Monocytes (%) (Auto) 8.5 % (1.0-10.0) Eosinophils (%) (Auto) 2.1 % (0.0-3.0) Basophils (%) (Auto) 1.0 % (0.0-2.0) Sodium Level 135 mEQ/L (135-145) Potassium Level 3.5 mEQ/L (3.4-4.9) Chloride Level 93 mEQ/L (98-107) L Carbon Dioxide Level 32 mEQ/L (20-30) H Anion Gap 10 (5-15) Blood Urea Nitrogen 13 mg/dL (7-23) Creatinine 0.7 mg/dL (0.5-0.9) Estimat Glomerular Filtration Rate > 60 mL/min (>60) Glucose Level 100 mg/dL (74-106) Calcium Level 8.9 mg/dL (8.6-10.2) Microbiology Date/Time Source Procedure Growth Status 09/27/16 13:40 Blood Blood Culture - Preliminary NO GROWTH AFTER 24 HOURS Resulted 09/27/16 13:25 Blood Blood Culture - Preliminary NO GROWTH AFTER 24 HOURS Resulted 09/27/16 13:51 Nasal Nares MRSA Culture - Final Staphylococcus Aureus - Mrsa Complete 09/27/16 13:51 Rectum VRE Culture - Final Enterococcus Faecium - Vre Enterococcus Faecalis - Vre Complete Intake and Output 09/28/16 09/29/16 19:00 07:00 Intake Total 960 ml 875.000 ml Balance 960 ml 875.000 ml Intake Oral 960 ml 600 ml IV Total 275.000 ml # Voids 5 2 # Bowel Movements 1 Objective General: Obese; alert, cooperative, no distress, appears stated age Head: normocephalic, without obvious abnormality, atraumatic Eyes: conjunctivae/corneas clear. PERRL, EOM's intact Throat: lips, mucosa, and tongue normal. MMM Neck: supple, symmetrical, trachea midline, and no JVD Lungs: clear to auscultation bilaterally Heart: regular rate and rhythm, S1, S2 normal, no murmur, click, rub or gallop Abdomen: soft, non-tender, non-distended, bowel sounds normal; no masses or organomegaly Extremities: extremities normal, atraumatic, no cyanosis or edema Pulses: 2+ and symmetric Skin: skin color, texture, turgor normal; no rashes or lesions Neurologic: grossly normal, no focal deficits Assessment/Plan Problem List: (1) DVT, bilateral lower limbs Assessment & Plan: Doppler neg. Await hemei consult. Consider discontinue xarelto due to vaginal bleeding. (2) HTN (hypertension) Assessment & Plan: Cont benazepril. (3) Gout (4) Shoulder pain, right Assessment & Plan: Xray neg (5) Flank pain, acute (6) Bilateral cellulitis of lower leg Assessment & Plan: See ID note. Cont vanco and cefepime (7) Post-menopausal bleeding Assessment & Plan: See [facility] consult. May require D&C as outpatient. (8) UTI (urinary tract infection) (9) Morbid obesity Status: progressing TREVER SCHMID September 29, 2016 18:13
--- NOTE | 2016-09-29 18:31 | Consultation ---
Consult Note Consult Note Hematology Consultation PRELIMINARY NOTE DOS 09/29/16 RFC: Evaluation of anticoag, DVT, PE REQ MD: PARAS CHIEF COMPLAINT: Lower extremity cellulitis and pain. HISTORY OF PRESENT ILLNESS: The patient is a pleasant unfortunate female with past medical history significant for history of morbid obesity, hypertension, DVT, history of factor V Leiden deficiency, history of chronic dermatitis, and cellulitis of the lower extremities, who presented to [facility], complaining of worsening of her both lower extremities cellulitis. She presented to emergency room and complaining of worsening of her lower extremity. The patient was admitted in the hospital. I was called for admission. Primary physician is Dr. Sherwin Jones. Had a doppler of lower extremities which did not shows evidence of any clot, at this time xarelto is placed on hold given ongoing vaginal bleeding PAST MEDICAL HISTORY: Includin. Factor V Leiden deficiency. 2. History of DVT. 3. History of pulmonary embolism. 4. History of hypertension. 5. History of hyperlipidemia. 6. History of chronic stasis changes in the lower extremities. 7. History of peripheral vascular disease. 8. History of obs sleep apnea. PAST SURGICAL HISTORY: None. MEDICATION: Reviewed. ALLERGIES: She is allergic to sulfa. SOCIAL HISTORY: She is homeless. There is no history of tobacco, alcohol, or drug use. FAMILY HISTORY: Negative for any history of premature heart disease. ROS: Constitutional: No fever, no chills, no night sweats, no fatigue Skin: No rashes, lumps, itchiness, dryness HEENT: No NASH, ear ache, visual changes, double vision, nosebleeds, sore throat, lumps, swollen glands Breasts: No lumps, pain, discharge Pulmonary: No cough, sputum, shortness of breath, coughing up blood, hemoptysis Cardiovascular: No chest pain, tightness, palpitations, syncope, claudication, orthopnea, PND GI: No nausea, vomiting, diarrhea, melena, hematochezia, change in appetite, abdominal pain : No dysuria, frequency, urgency, urinary incontinence, foamy urine Musculoskeletal: No joint swelling or muscle pain, trauma, back pain Neurologic: No dizziness, fainting, seizures, changes in smell or taste Psychiatric: No nervousness, stress, or depression, anxiety, hallucinations Endocrine: No weight change, heat or cold intolerance, tremor, insomnia PHYSICAL EXAMINATION: VITAL SIGNS: The patient has a temperature of 97, blood pressure 109/69, pulse rate of 96, and respiratory rate of 18. HEAD AND NECK: No JVP. No LAD. No thyromegaly. Extraocular movement are intact. Pupils are reactive to light and accommodation. LUNGS: Clear to auscultation. CARDIAC: Regular rate and rhythm. S1 and S2. No murmur. No rub. ABDOMEN: Soft and nontender. She is obese. EXTREMITY: There is 2-3+ edema, bilateral lower extremity changes LABORATORY DATA: Laboratory Tests Test 09/29/16 07:00 White Blood Count 10.4 K/UL (4.8-10.8) Red Blood Count 4.19 M/UL (4.20-5.40) L Hemoglobin 10.2 G/DL (12.0-16.0) L Hematocrit 34.0 % (37.0-47.0) L Mean Corpuscular Volume 81 FL (80-99) Mean Corpuscular Hemoglobin 24.4 PG (27.0-31.0) L Mean Corpuscular Hemoglobin Concent 30.1 G/DL (32.0-36.0) L Red Cell Distribution Width 14.5 % (11.6-14.8) Platelet Count 244 K/UL (150-450) Mean Platelet Volume 7.6 FL (6.5-10.1) Neutrophils (%) (Auto) 71.1 % (45.0-75.0) Lymphocytes (%) (Auto) 17.3 % (20.0-45.0) L Monocytes (%) (Auto) 8.5 % (1.0-10.0) Eosinophils (%) (Auto) 2.1 % (0.0-3.0) Basophils (%) (Auto) 1.0 % (0.0-2.0) Sodium Level 135 mEQ/L (135-145) Potassium Level 3.5 mEQ/L (3.4-4.9) Chloride Level 93 mEQ/L (98-107) L Carbon Dioxide Level 32 mEQ/L (20-30) H Anion Gap 10 (5-15) Blood Urea Nitrogen 13 mg/dL (7-23) Creatinine 0.7 mg/dL (0.5-0.9) Estimat Glomerular Filtration Rate > 60 mL/min (>60) Glucose Level 100 mg/dL (74-106) Calcium Level 8.9 mg/dL (8.6-10.2) ASSESSMENT AND RECS: # Vaginal bleeding - given ongoing bleeding, a vaginal us showed uterine fibroids, Dr. Zuniga consulted, at this time, given recurrent bleeding, will hold off on xarelto as hgb dropping, if it stabilizes by Sunday will restart it. Interestingly has been on xarelto and h/h has variated between 7-11 over the past 5 years, have reviewed her labs, and had been on xarelto during all those years, therefore could forego a IVC filter at the moment # Factor V Leiden deficiency. # DVT hx # PE hx # Reoccurring of the lower extremity cellulitis. # Hypokalemia. # Hypertension. # Morbid obesity. # Greatly appreciate consultation DAMIAN LORA September 29, 2016 18:31
[2016-09-29 20:15] VITALS: BP 136/76
[2016-09-29] MEDS: Clobetasol Cream 0.05% 15gm TOPIC SCH (22:51)
[2016-09-29] MEDS: Dyna-Hex 2% Top Sol 8oz TOPIC SCH (22:51)
[2016-09-30 00:25] VITALS: BP 124/79
[2016-09-30] MEDS: Vancomycin 1gm in Dextrose 275ml IVPB SCH ×2 (01:08→09:49)
[2016-09-30 04:50] VITALS: BP 96/60
[2016-09-30] MEDS: Cefepime HCl 1 GM in D5W 55 ML IVPB SCH ×2 (06:15→18:51)
[2016-09-30 06:21] LABS: BASOPHILS % (AUTO) 0.9 % (0.0-2.0); EOSINOPHILS % (AUTO) 2.2 % (0.0-3.0); LYMPHOCYTES % (AUTO) 16.6 % (20.0-45.0); MEAN CORPUSCULAR HEMOGLOBIN 24.7 PG (27.0-31.0); MEAN CORPUSCULAR HGB CONC 30.2 G/DL (32.0-36.0); MEAN CORPUSCULAR VOLUME 82 FL (80-99); MEAN PLATELET VOLUME 7.1 FL (6.5-10.1); MONOCYTES % (AUTO) 7.8 % (1.0-10.0); NEUTROPHILS % (AUTO) 72.6 % (45.0-75.0); PLATELET COUNT 292 K/UL (150-450); RED BLOOD COUNT 4.18 M/UL (4.20-5.40); RED CELL DISTRIBUTION WIDTH 14.4 % (11.6-14.8)
[2016-09-30 06:56] LABS: ANION GAP 12 (5-15); CALCIUM 8.4 mg/dL (8.6-10.2); CARBON DIOXIDE 30 mEQ/L (20-30); CHLORIDE 96 mEQ/L (98-107); CREATININE 1.1 mg/dL (0.5-0.9); GLOMERULAR FILTRATION RATE > 60 mL/min (>60); HEMOLYSIS 1; SODIUM 138 mEQ/L (135-145)
[2016-09-30 08:23] VITALS: BP 116/61
[2016-09-30] MEDS ORDERED: Allopurinol 100mg Tab ORAL SCH (09:00)
[2016-09-30] MEDS: Docusate 100mg cap ORAL SCH ×2 (09:46→21:15)
[2016-09-30] MEDS: Clobetasol Cream 0.05% 15gm TOPIC SCH ×2 (09:46→18:47)
[2016-09-30] MEDS: Dyna-Hex 2% Top Sol 8oz TOPIC SCH (09:47)
[2016-09-30 12:00] VITALS: BP 110/65
--- NOTE | 2016-09-30 15:14 | Internal Med Progress Note ---
Subjective Date of Service: September 30, 2016 Physician Name Jo Holguin Attending Physician Jo Holguin Current Medications Medications (Trade) Dose Ordered Sig/Key Route PRN Reason Start Time Stop Time Status Last Admin Dose Admin Acetaminophen (Tylenol) 650 mg Q4H PRN ORAL Mild Pain (Pain Scale 1-3) 09/27/16 17:30 10/27/16 17:29 Benazepril HCl (Lotensin) 40 mg DAILY ORAL 09/29/16 20:00 10/29/16 19:59 09/29/16 22:50 Cefepime HCl/ Dextrose (Maxipime/D5W) 55 ml @ 110 mls/hr Q12HR@0600,1800 IVPB 09/28/16 06:00 10/05/16 05:59 09/30/16 06:15 Chlorhexidine Gluconate (Priti-Hex 2%) 1 applic DAILY TOPIC 09/29/16 22:00 10/29/16 21:59 09/30/16 09:47 Clobetasol Propionate (Temovate) 1 applic TWICE A DAY TOPIC 09/29/16 21:00 10/29/16 20:59 09/30/16 09:46 Dextrose (Dextrose 50%) STAT PRN IV Hypoglycemia 09/27/16 17:30 10/27/16 17:29 Diphenhydramine HCl (Benadryl) 25 mg Q6H PRN ORAL Itching/Pruritis 09/27/16 18:30 10/27/16 18:29 Docusate Sodium (Colace) 100 mg EVERY 12 HOURS ORAL 09/27/16 21:00 10/27/16 20:59 09/30/16 09:46 Hydrochlorothiazide 25 mg 25 mg DAILY ORAL 09/28/16 09:00 10/28/16 08:59 09/30/16 12:12 Hydromorphone HCl (Dilaudid) 1 mg Q4H PRN SUBQ Moderate Pain (Pain Scale 4-6) 09/28/16 18:30 10/05/16 18:29 Hydromorphone HCl (Dilaudid) 2 mg Q4H PRN IVP Severe Pain (Pain Scale 7-10) 09/28/16 18:30 10/05/16 18:29 09/30/16 01:08 Lorazepam (Ativan) 1 mg Q4H PRN ORAL For Anxiety 09/27/16 17:30 10/04/16 17:29 Magnesium Hydroxide (Mom) 30 ml HSPRN PRN ORAL Constipation 09/27/16 17:30 10/27/16 17:29 Ondansetron HCl (Zofran) 4 mg Q6H PRN IVP Nausea & Vomiting 09/27/16 17:30 10/27/16 17:29 Pantoprazole (Protonix) 40 mg DAILY ORAL 09/28/16 09:00 10/28/16 08:59 09/30/16 09:46 Patient Own Medication (Patient's Own Med) 1 ea DAILY ORAL 09/29/16 21:00 10/29/16 20:59 09/30/16 09:48 Vancomycin HCl 1 ea 1 ea DAILY PRN MISC Per rx protocol 09/27/16 17:30 10/27/16 17:29 Vancomycin HCl/ Dextrose (Vancomycin/D5W) 275 ml @ 183.708 mls/hr Q8HR@0200,1000,1800 IVPB 09/28/16 02:00 10/03/16 01:59 09/30/16 09:49 Zolpidem Tartrate (Ambien) 5 mg HSPRN PRN ORAL Insomnia 09/27/16 21:00 10/27/16 20:59 Allergies: Coded Allergies: SULFA (SULFONAMIDE ANTIBIOTICS) (Unverified Allergy, Unknown, 05/02/15) allergy history per Dr. Robert BAUER Limited/Unobtainable: No Constitutional: Reports: no symptoms HEENT: Reports: no symptoms Cardiovascular: Reports: no symptoms Respiratory: Reports: no symptoms Gastrointestinal/Abdominal: Reports: no symptoms Genitourinary: Reports: no symptoms Neurologic/Psychiatric: Reports: no symptoms Subjective 55 YO F admitted with right shoulder and flank pain. Now cellulitis bilat legs. Objective Last Vital Signs Date Time Temp Pulse Resp B/P Pulse Ox O2 Delivery O2 Flow Rate FiO2 09/30/16 12:00 96.3 83 19 110/65 Room Air 09/30/16 08:23 97 Laboratory Tests Test 09/30/16 05:00 White Blood Count 12.0 K/UL (4.8-10.8) H Red Blood Count 4.18 M/UL (4.20-5.40) L Hemoglobin 10.3 G/DL (12.0-16.0) L Hematocrit 34.2 % (37.0-47.0) L Mean Corpuscular Volume 82 FL (80-99) Mean Corpuscular Hemoglobin 24.7 PG (27.0-31.0) L Mean Corpuscular Hemoglobin Concent 30.2 G/DL (32.0-36.0) L Red Cell Distribution Width 14.4 % (11.6-14.8) Platelet Count 292 K/UL (150-450) Mean Platelet Volume 7.1 FL (6.5-10.1) Neutrophils (%) (Auto) 72.6 % (45.0-75.0) Lymphocytes (%) (Auto) 16.6 % (20.0-45.0) L Monocytes (%) (Auto) 7.8 % (1.0-10.0) Eosinophils (%) (Auto) 2.2 % (0.0-3.0) Basophils (%) (Auto) 0.9 % (0.0-2.0) Sodium Level 138 mEQ/L (135-145) Potassium Level 4.0 mEQ/L (3.4-4.9) Chloride Level 96 mEQ/L (98-107) L Carbon Dioxide Level 30 mEQ/L (20-30) Anion Gap 12 (5-15) Blood Urea Nitrogen 18 mg/dL (7-23) Creatinine 1.1 mg/dL (0.5-0.9) #H Estimat Glomerular Filtration Rate > 60 mL/min (>60) Glucose Level 105 mg/dL (74-106) Calcium Level 8.4 mg/dL (8.6-10.2) L Microbiology Date/Time Source Procedure Growth Status 09/29/16 02:00 Urine,Clean Catch Urine Culture - Preliminary NO GROWTH AFTER 24 HOURS Resulted Intake and Output 09/29/16 09/30/16 19:00 07:00 Intake Total 800 ml 697.416 ml Balance 800 ml 697.416 ml Intake Oral 800 ml IV Total 697.416 ml # Voids 3 7 # Bowel Movements 1 Objective General: Obese; alert, cooperative, no distress, appears stated age Head: normocephalic, without obvious abnormality, atraumatic Eyes: conjunctivae/corneas clear. PERRL, EOM's intact Throat: lips, mucosa, and tongue normal. MMM Neck: supple, symmetrical, trachea midline, and no JVD Lungs: clear to auscultation bilaterally Heart: regular rate and rhythm, S1, S2 normal, no murmur, click, rub or gallop Abdomen: soft, non-tender, non-distended, bowel sounds normal; no masses or organomegaly Extremities: extremities normal, atraumatic, no cyanosis or edema Pulses: 2+ and symmetric Skin: skin color, texture, turgor normal; no rashes or lesions Neurologic: grossly normal, no focal deficits Assessment/Plan Problem List: (1) DVT, bilateral lower limbs Assessment & Plan: Doppler neg. Await hemei consult. Consider discontinue xarelto due to vaginal bleeding-see ID consult (2) HTN (hypertension) Assessment & Plan: Cont benazepril. (3) Gout (4) Shoulder pain, right Assessment & Plan: Xray neg (5) Flank pain, acute (6) Bilateral cellulitis of lower leg Assessment & Plan: See ID note. Cont vanco and cefepime (7) Post-menopausal bleeding Assessment & Plan: See [facility] consult. May require D&C as outpatient. (8) UTI (urinary tract infection) (9) Morbid obesity (10) Factor V Leiden Status: not improved Assessment/Plan Discharge JO Moeller September 30, 2016 15:14
--- NOTE | 2016-09-30 15:35 | Infectious Diseases Prog Note ---
Assessment/Plan Assessment/Plan ASSESSMENT AND PLAN: 1. bilateral leg cellulitis and edema - clinically about the same - continue vancomycin and cefepime - d/w pharmacy about adjusting vancomycin for increase in creatinine - 0.7 to 1.1 2. Elevated white noted - will observe 3. vre colonization and isolation 4. Vaginal bleed. 5. Uterine fibroids. 6. Hypertension. 7. History of blood clots and deep venous thrombosis. 8. History of recurrent lower extremity cellulitis. 9. History of leg edema. 10. Blood pressure control per primary. 11. Anemia. 12. History of asthma. 13. History of gastrointestinal bleed. 14. Allergy to sulfa. 15. Social history is negative. 16. Family history is noncontributory. 17. MAR was noted. 18. Notes and records were reviewed. 19. Case was discussed with RN. 20. Continue treatment per primary consultants. 21. d/w Dr. Holguin Subjective Constitutional: Denies: fever HEENT: Denies: congestion Respiratory: Denies: shortness of breath Cardiovascular: Denies: chest pain Gastrointestinal/Abdominal: Denies: diarrhea, nausea, vomiting Neurologic: Denies: headache Psychiatric: Reports: no symptoms Skin: Denies: rash Hematologic: Denies: bleeding Musculoskeletal: Denies: pain Allergies: Coded Allergies: SULFA (SULFONAMIDE ANTIBIOTICS) (Unverified Allergy, Unknown, 05/02/15) allergy history per Dr. Jones Objective Vital Signs Last 24 Hour Vital Signs Date Time Temp Pulse Resp B/P Pulse Ox O2 Delivery O2 Flow Rate FiO2 09/30/16 12:00 96.3 83 19 110/65 Room Air 09/30/16 08:23 98.1 86 21 116/61 97 Room Air 09/30/16 04:50 97.7 75 20 96/60 100 Room Air 09/30/16 02:01 97.5 09/30/16 00:25 97.5 94 20 124/79 97 Room Air 09/29/16 22:50 136/76 09/29/16 20:15 97.0 80 20 136/76 95 Room Air 09/29/16 16:15 98.7 81 22 112/80 99 Room Air Height (Feet): 5 Height (Inches): 9.00 Weight (Pounds): 350 General Appearance: no acute distress HEENT: normocephalic, atraumatic, anicteric, mucous membranes moist, PERRL, EOMI, pharynx normal, supple, no JVD Respiratory/Chest: lungs clear, normal breath sounds, no respiratory distress, no accessory muscle use Cardiovascular: normal rate, regular rhythm, no gallop/murmur, no JVD Abdomen: normal bowel sounds, soft, non tender, no organomegaly, non distended Genitourinary: other - no eaton, no cva pain Extremities: no cyanosis, other - + edema, warmth noted in lower legs Skin: no rash 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, alert, 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 Lymphatic: no neck adenopathy Musculoskeletal: no effusion Objective 09/27 - chest x-ray - nad (no pna) Microbiology Date/Time Source Procedure Growth Status 09/27/16 13:40 Blood Blood Culture - Preliminary NO GROWTH AFTER 48 HOURS Resulted 09/27/16 13:51 Nasal Nares MRSA Culture - Final Staphylococcus Aureus - Mrsa Complete 09/29/16 02:00 Urine,Clean Catch Urine Culture - Preliminary NO GROWTH AFTER 24 HOURS Resulted 09/27/16 13:51 Rectum VRE Culture - Final Enterococcus Faecium - Vre Enterococcus Faecalis - Vre Complete Microbiology Date/Time Source Procedure Growth Status 09/29/16 02:00 Urine,Clean Catch Urine Culture - Preliminary NO GROWTH AFTER 24 HOURS Resulted Laboratory Tests Test 09/30/16 05:00 White Blood Count 12.0 K/UL (4.8-10.8) H Red Blood Count 4.18 M/UL (4.20-5.40) L Hemoglobin 10.3 G/DL (12.0-16.0) L Hematocrit 34.2 % (37.0-47.0) L Mean Corpuscular Volume 82 FL (80-99) Mean Corpuscular Hemoglobin 24.7 PG (27.0-31.0) L Mean Corpuscular Hemoglobin Concent 30.2 G/DL (32.0-36.0) L Red Cell Distribution Width 14.4 % (11.6-14.8) Platelet Count 292 K/UL (150-450) Mean Platelet Volume 7.1 FL (6.5-10.1) Neutrophils (%) (Auto) 72.6 % (45.0-75.0) Lymphocytes (%) (Auto) 16.6 % (20.0-45.0) L Monocytes (%) (Auto) 7.8 % (1.0-10.0) Eosinophils (%) (Auto) 2.2 % (0.0-3.0) Basophils (%) (Auto) 0.9 % (0.0-2.0) Sodium Level 138 mEQ/L (135-145) Potassium Level 4.0 mEQ/L (3.4-4.9) Chloride Level 96 mEQ/L (98-107) L Carbon Dioxide Level 30 mEQ/L (20-30) Anion Gap 12 (5-15) Blood Urea Nitrogen 18 mg/dL (7-23) Creatinine 1.1 mg/dL (0.5-0.9) #H Estimat Glomerular Filtration Rate > 60 mL/min (>60) Glucose Level 105 mg/dL (74-106) Calcium Level 8.4 mg/dL (8.6-10.2) L Current Medications Medications (Trade) Dose Ordered Sig/Key Route PRN Reason Start Time Stop Time Status Last Admin Dose Admin Acetaminophen (Tylenol) 650 mg Q4H PRN ORAL Mild Pain (Pain Scale 1-3) 09/27/16 17:30 10/27/16 17:29 Benazepril HCl (Lotensin) 40 mg DAILY ORAL 09/29/16 20:00 10/29/16 19:59 09/29/16 22:50 Cefepime HCl/ Dextrose (Maxipime/D5W) 55 ml @ 110 mls/hr Q12HR@0600,1800 IVPB 09/28/16 06:00 10/05/16 05:59 09/30/16 06:15 Chlorhexidine Gluconate (Priti-Hex 2%) 1 applic DAILY TOPIC 09/29/16 22:00 10/29/16 21:59 09/30/16 09:47 Clobetasol Propionate (Temovate) 1 applic TWICE A DAY TOPIC 09/29/16 21:00 10/29/16 20:59 09/30/16 09:46 Dextrose (Dextrose 50%) STAT PRN IV Hypoglycemia 09/27/16 17:30 10/27/16 17:29 Diphenhydramine HCl (Benadryl) 25 mg Q6H PRN ORAL Itching/Pruritis 09/27/16 18:30 10/27/16 18:29 Docusate Sodium (Colace) 100 mg EVERY 12 HOURS ORAL 09/27/16 21:00 10/27/16 20:59 09/30/16 09:46 Hydrochlorothiazide 25 mg 25 mg DAILY ORAL 09/28/16 09:00 10/28/16 08:59 09/30/16 12:12 Hydromorphone HCl (Dilaudid) 1 mg Q4H PRN SUBQ Moderate Pain (Pain Scale 4-6) 09/28/16 18:30 10/05/16 18:29 Hydromorphone HCl (Dilaudid) 2 mg Q4H PRN IVP Severe Pain (Pain Scale 7-10) 09/28/16 18:30 10/05/16 18:29 09/30/16 01:08 Lorazepam (Ativan) 1 mg Q4H PRN ORAL For Anxiety 09/27/16 17:30 10/04/16 17:29 Magnesium Hydroxide (Mom) 30 ml HSPRN PRN ORAL Constipation 09/27/16 17:30 10/27/16 17:29 Ondansetron HCl (Zofran) 4 mg Q6H PRN IVP Nausea & Vomiting 09/27/16 17:30 10/27/16 17:29 Pantoprazole (Protonix) 40 mg DAILY ORAL 09/28/16 09:00 10/28/16 08:59 09/30/16 09:46 Patient Own Medication (Patient's Own Med) 1 ea DAILY ORAL 09/29/16 21:00 10/29/16 20:59 09/30/16 09:48 Vancomycin HCl 1 ea 1 ea DAILY PRN MISC Per rx protocol 09/27/16 17:30 10/27/16 17:29 Vancomycin HCl/ Dextrose (Vancomycin/D5W) 275 ml @ 183.708 mls/hr Q8HR@0200,1000,1800 IVPB 09/28/16 02:00 10/03/16 01:59 09/30/16 09:49 Zolpidem Tartrate (Ambien) 5 mg HSPRN PRN ORAL Insomnia 09/27/16 21:00 10/27/16 20:59 ASTER HACKETT September 30, 2016 15:35
[2016-09-30 16:23] VITALS: BP 102/62
[2016-09-30] MEDS ORDERED: NS 275ml ONE (17:41)
[2016-09-30 20:00] VITALS: BP 122/68
--- NOTE | 2016-09-30 20:45 | General Progress Note ---
Assessment/Plan Assessment/Plan ASSESSMENT AND RECS: # Vaginal bleeding - given ongoing bleeding, a vaginal us showed uterine fibroids, Dr. Zuniga consulted, at this time, given recurrent bleeding, will hold off on xarelto as hgb dropping, if it stabilizes by Sunday will restart it. # Factor V Leiden deficiency. # DVT hx # PE hx # Reoccurring of the lower extremity cellulitis. # Hypokalemia. # Hypertension. # Morbid obesity. DAMIAN LORA September 30, 2016 Subjective Constitutional: Reports: no symptoms HEENT: Reports: no symptoms Cardiovascular: Reports: no symptoms Respiratory: Reports: no symptoms Gastrointestinal/Abdominal: Reports: no symptoms Genitourinary: Reports: no symptoms Neurologic/Psychiatric: Reports: no symptoms Endocrine: Reports: no symptoms Hematologic/Lymphatic: Reports: no symptoms Allergies: Coded Allergies: SULFA (SULFONAMIDE ANTIBIOTICS) (Unverified Allergy, Unknown, 05/02/15) allergy history per Dr. Jones Objective Last 24 Hour Vital Signs Date Time Temp Pulse Resp B/P Pulse Ox O2 Delivery O2 Flow Rate FiO2 09/30/16 20:00 97.7 87 22 122/68 98 Room Air 09/30/16 16:23 97.2 87 18 102/62 98 Room Air 09/30/16 12:00 96.3 83 19 110/65 Room Air 09/30/16 09:00 102/62 09/30/16 08:23 98.1 86 21 116/61 97 Room Air 09/30/16 04:50 97.7 75 20 96/60 100 Room Air 09/30/16 02:01 97.5 09/30/16 00:25 97.5 94 20 124/79 97 Room Air 09/29/16 22:50 136/76 Intake and Output 09/29/16 09/30/16 19:00 07:00 Intake Total 800 ml 697.416 ml Balance 800 ml 697.416 ml Intake Oral 800 ml IV Total 697.416 ml # Voids 3 7 # Bowel Movements 1 Laboratory Tests 09/30/16 05:00: White Blood Count 12.0H, Red Blood Count 4.18L, Hemoglobin 10.3L, Hematocrit 34.2L, Mean Corpuscular Volume 82, Mean Corpuscular Hemoglobin 24.7L, Mean Corpuscular Hemoglobin Concent 30.2L, Red Cell Distribution Width 14.4, Platelet Count 292, Mean Platelet Volume 7.1, Neutrophils (%) (Auto) 72.6, Lymphocytes (%) (Auto) 16.6L, Monocytes (%) (Auto) 7.8, Eosinophils (%) (Auto) 2.2, Basophils (%) (Auto) 0.9, Sodium Level 138, Potassium Level 4.0, Chloride Level 96L, Carbon Dioxide Level 30, Anion Gap 12, Blood Urea Nitrogen 18, Creatinine 1.1#H, Estimat Glomerular Filtration Rate > 60, Glucose Level 105, Calcium Level 8.4L Height (Feet): 5 Height (Inches): 9.00 Weight (Pounds): 350 General Appearance: no apparent distress EENT: normal ENT inspection Neck: normal alignment Cardiovascular: normal rate Respiratory/Chest: lungs clear Abdomen: soft Pelvis: no masses Extremities: non-tender Edema: no edema noted Arm (L), no edema noted Arm (R), no edema noted Leg (L), no edema noted Leg (R), no edema noted Pedal (L), no edema noted Pedal (R), no edema noted Generalized Edema: mild edema Neurologic: responsive Skin: warm/dry Lymphatic: normal anterior cervical (L), normal anterior cervical (R), normal axillary (L), normal axillary (R), normal inguinal (L), normal inguinal (R), normal other, normal posterior cervical (L), normal posterior cervical (R), normal submandibular (L), normal submandibular (R), normal supraclavicular (L), normal supraclavicular (R) DAMIAN LORA September 30, 2016 20:45
[2016-10-01] VITALS: BP 128/84
[2016-10-01 04:00] VITALS: BP 108/69
[2016-10-01] MEDS: Cefepime HCl 1 GM in D5W 55 ML IVPB SCH ×2 (05:01→17:58)
[2016-10-01 07:07] LABS: ANION GAP 12 (5-15); CALCIUM 8.7 mg/dL (8.6-10.2); CARBON DIOXIDE 30 mEQ/L (20-30); CHLORIDE 95 mEQ/L (98-107); CREATININE 0.7 mg/dL (0.5-0.9); GLOMERULAR FILTRATION RATE > 60 mL/min (>60); HEMOLYSIS 0; POTASSIUM 3.7 mEQ/L (3.4-4.9); SODIUM 137 mEQ/L (135-145)
[2016-10-01 07:17] LABS: BASOPHILS % (AUTO) 0.6 % (0.0-2.0); EOSINOPHILS % (AUTO) 2.4 % (0.0-3.0); LYMPHOCYTES % (AUTO) 17.7 % (20.0-45.0); MEAN CORPUSCULAR VOLUME 80 FL (80-99); MEAN PLATELET VOLUME 7.2 FL (6.5-10.1); MONOCYTES % (AUTO) 6.4 % (1.0-10.0); NEUTROPHILS % (AUTO) 72.9 % (45.0-75.0); PLATELET COUNT 277 K/UL (150-450); RED BLOOD COUNT 4.22 M/UL (4.20-5.40); RED CELL DISTRIBUTION WIDTH 14.4 % (11.6-14.8); WHITE BLOOD COUNT 13.7 K/UL (4.8-10.8)
[2016-10-01 08:00] VITALS: BP 98/67
[2016-10-01] MEDS: Docusate 100mg cap ORAL SCH ×2 (09:34→20:37)
[2016-10-01] MEDS: Clobetasol Cream 0.05% 15gm TOPIC SCH ×2 (09:34→16:53)
[2016-10-01] MEDS: Dyna-Hex 2% Top Sol 8oz TOPIC SCH (09:35)
[2016-10-01] MEDS: Xarelto 10mg tab ORAL SCH (09:38)
[2016-10-01 12:00] VITALS: BP 112/66
--- NOTE | 2016-10-01 15:45 | Internal Med Progress Note ---
Subjective Date of Service: October 01, 2016 Physician Name Trever Holguin Attending Physician Trever Holguin Current Medications Medications (Trade) Dose Ordered Sig/Key Route PRN Reason Start Time Stop Time Status Last Admin Dose Admin Acetaminophen (Tylenol) 650 mg Q4H PRN ORAL Mild Pain (Pain Scale 1-3) 09/27/16 17:30 10/27/16 17:29 Benazepril HCl (Lotensin) 40 mg DAILY ORAL 09/29/16 20:00 10/29/16 19:59 09/29/16 22:50 Cefepime HCl/ Dextrose (Maxipime/D5W) 55 ml @ 110 mls/hr Q12HR@0600,1800 IVPB 09/28/16 06:00 10/05/16 05:59 10/01/16 05:01 Chlorhexidine Gluconate 1 applic 1 applic DAILY TOPIC 09/29/16 22:00 10/29/16 21:59 10/01/16 09:35 Clobetasol Propionate (Temovate) 1 applic TWICE A DAY TOPIC 09/29/16 21:00 10/29/16 20:59 10/01/16 09:34 Dextrose (Dextrose 50%) STAT PRN IV Hypoglycemia 09/27/16 17:30 10/27/16 17:29 Diphenhydramine HCl (Benadryl) 25 mg Q6H PRN ORAL Itching/Pruritis 09/27/16 18:30 10/27/16 18:29 Docusate Sodium (Colace) 100 mg EVERY 12 HOURS ORAL 09/27/16 21:00 10/27/16 20:59 10/01/16 09:34 Hydrochlorothiazide 25 mg 25 mg DAILY ORAL 09/28/16 09:00 10/28/16 08:59 09/30/16 12:12 Hydromorphone HCl (Dilaudid) 1 mg Q4H PRN SUBQ Moderate Pain (Pain Scale 4-6) 09/28/16 18:30 10/05/16 18:29 Hydromorphone HCl (Dilaudid) 2 mg Q4H PRN IVP Severe Pain (Pain Scale 7-10) 09/28/16 18:30 10/05/16 18:29 10/01/16 15:18 Lorazepam (Ativan) 1 mg Q4H PRN ORAL For Anxiety 09/27/16 17:30 10/04/16 17:29 Magnesium Hydroxide (Mom) 30 ml HSPRN PRN ORAL Constipation 09/27/16 17:30 10/27/16 17:29 Ondansetron HCl (Zofran) 4 mg Q6H PRN IVP Nausea & Vomiting 09/27/16 17:30 10/27/16 17:29 Pantoprazole (Protonix) 40 mg ACBREAKFAST ORAL 10/01/16 06:30 10/28/16 08:59 10/01/16 05:01 Patient Own Medication (Patient's Own Med) 1 ea DAILY ORAL 09/29/16 21:00 10/29/16 20:59 10/01/16 09:35 Rivaroxaban (Xarelto) 20 mg DAILY ORAL 10/01/16 09:00 10/31/16 08:59 10/01/16 09:38 Vancomycin HCl (Vanco rx to dose) 1 ea DAILY PRN MISC Per rx protocol 09/27/16 17:30 10/27/16 17:29 Vancomycin HCl/ Dextrose (Vancomycin/D5W) 275 ml @ 183.708 mls/hr Q12H IVPB 10/01/16 21:00 10/06/16 20:59 Zolpidem Tartrate (Ambien) 5 mg HSPRN PRN ORAL Insomnia 09/27/16 21:00 10/27/16 20:59 Allergies: Coded Allergies: SULFA (SULFONAMIDE ANTIBIOTICS) (Unverified Allergy, Unknown, 05/02/15) allergy history per Dr. Robert BAUER Limited/Unobtainable: No Constitutional: Reports: no symptoms HEENT: Reports: no symptoms Cardiovascular: Reports: no symptoms Respiratory: Reports: no symptoms Gastrointestinal/Abdominal: Reports: no symptoms Genitourinary: Reports: no symptoms Neurologic/Psychiatric: Reports: no symptoms Subjective 55 YO F admitted with right shoulder and flank pain. Now cellulitis bilat legs. Objective Last Vital Signs Date Time Temp Pulse Resp B/P Pulse Ox O2 Delivery O2 Flow Rate FiO2 10/01/16 12:00 97.2 79 18 112/66 100 Room Air Laboratory Tests Test 10/01/16 05:05 White Blood Count 13.7 K/UL (4.8-10.8) H Red Blood Count 4.22 M/UL (4.20-5.40) Hemoglobin 10.5 G/DL (12.0-16.0) L Hematocrit 33.9 % (37.0-47.0) L Mean Corpuscular Volume 80 FL (80-99) Mean Corpuscular Hemoglobin 25.0 PG (27.0-31.0) L Mean Corpuscular Hemoglobin Concent 31.0 G/DL (32.0-36.0) L Red Cell Distribution Width 14.4 % (11.6-14.8) Platelet Count 277 K/UL (150-450) Mean Platelet Volume 7.2 FL (6.5-10.1) Neutrophils (%) (Auto) 72.9 % (45.0-75.0) Lymphocytes (%) (Auto) 17.7 % (20.0-45.0) L Monocytes (%) (Auto) 6.4 % (1.0-10.0) Eosinophils (%) (Auto) 2.4 % (0.0-3.0) Basophils (%) (Auto) 0.6 % (0.0-2.0) Sodium Level 137 mEQ/L (135-145) Potassium Level 3.7 mEQ/L (3.4-4.9) Chloride Level 95 mEQ/L (98-107) L Carbon Dioxide Level 30 mEQ/L (20-30) Anion Gap 12 (5-15) Blood Urea Nitrogen 22 mg/dL (7-23) Creatinine 0.7 mg/dL (0.5-0.9) Estimat Glomerular Filtration Rate > 60 mL/min (>60) Glucose Level 117 mg/dL (74-106) H Calcium Level 8.7 mg/dL (8.6-10.2) Microbiology Date/Time Source Procedure Growth Status 09/29/16 02:00 Urine,Clean Catch Urine Culture - Preliminary Streptococcus Species Resulted Intake and Output 09/30/16 10/01/16 19:00 07:00 Intake Total 510 ml Balance 510 ml Intake Oral 400 ml IV Total 110 ml # Voids 3 Objective General: Obese; alert, cooperative, no distress, appears stated age Head: normocephalic, without obvious abnormality, atraumatic Eyes: conjunctivae/corneas clear. PERRL, EOM's intact Throat: lips, mucosa, and tongue normal. MMM Neck: supple, symmetrical, trachea midline, and no JVD Lungs: clear to auscultation bilaterally Heart: regular rate and rhythm, S1, S2 normal, no murmur, click, rub or gallop Abdomen: soft, non-tender, non-distended, bowel sounds normal; no masses or organomegaly Extremities: extremities normal, atraumatic, no cyanosis or edema Pulses: 2+ and symmetric Skin: skin color, texture, turgor normal; no rashes or lesions Neurologic: grossly normal, no focal deficits Assessment/Plan Problem List: (1) DVT, bilateral lower limbs Assessment & Plan: Doppler neg. Await hemei consult. Consider discontinue xarelto due to vaginal bleeding-see ID consult (2) HTN (hypertension) Assessment & Plan: Cont benazepril. (3) Gout (4) Shoulder pain, right Assessment & Plan: Xray neg (5) Flank pain, acute (6) Bilateral cellulitis of lower leg Assessment & Plan: See ID note. 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 May require D&C as outpatient. (8) UTI (urinary tract infection) (9) Morbid obesity (10) Factor V Leiden Assessment/Plan Discharge plannong: rehab on [address] October 01, 2016 15:45
[2016-10-01 16:00] VITALS: BP 122/78
[2016-10-01 20:00] VITALS: BP 106/63
[2016-10-01] MEDS: Vancomycin 1250mg in D5W 275ml IVPB SCH (20:37)
--- NOTE | 2016-10-01 21:38 | General Progress Note ---
Assessment/Plan Assessment/Plan ASSESSMENT AND RECS: # Vaginal bleeding - given ongoing bleeding, a vaginal us showed uterine fibroids, Dr. Zuniga consulted, at this time, given recurrent bleeding, have restart xarelto on 10/01/16 # Factor V Leiden deficiency. # DVT hx # PE hx # Reoccurring of the lower extremity cellulitis. # Hypokalemia. # Hypertension. # Morbid obesity. Subjective Constitutional: Reports: no symptoms HEENT: Reports: no symptoms Cardiovascular: Reports: no symptoms Respiratory: Reports: no symptoms Gastrointestinal/Abdominal: Reports: no symptoms Genitourinary: Reports: no symptoms Neurologic/Psychiatric: Reports: no symptoms Endocrine: Reports: no symptoms Hematologic/Lymphatic: Reports: anemia Allergies: Coded Allergies: SULFA (SULFONAMIDE ANTIBIOTICS) (Unverified Allergy, Unknown, 05/02/15) allergy history per Dr. Jones Subjective no events to report since yesterday Objective Last 24 Hour Vital Signs Date Time Temp Pulse Resp B/P Pulse Ox O2 Delivery O2 Flow Rate FiO2 10/01/16 21:08 97.3 10/01/16 20:00 97.5 82 22 106/63 96 Room Air 10/01/16 16:53 122/78 10/01/16 16:00 97.3 78 18 122/78 99 Room Air 10/01/16 12:00 97.2 79 18 112/66 100 Room Air 10/01/16 08:00 97.9 87 20 98/67 92 Room Air 10/01/16 04:00 97.9 83 18 108/69 98 Room Air 10/01/16 00:00 97.2 86 20 128/84 96 Room Air Intake and Output 09/30/16 10/01/16 19:00 07:00 Intake Total 510 ml Balance 510 ml Intake Oral 400 ml IV Total 110 ml # Voids 3 Laboratory Tests 10/01/16 05:05: White Blood Count 13.7H, Red Blood Count 4.22, Hemoglobin 10.5L, Hematocrit 33.9L, Mean Corpuscular Volume 80, Mean Corpuscular Hemoglobin 25.0L, Mean Corpuscular Hemoglobin Concent 31.0L, Red Cell Distribution Width 14.4, Platelet Count 277, Mean Platelet Volume 7.2, Neutrophils (%) (Auto) 72.9, Lymphocytes (%) (Auto) 17.7L, Monocytes (%) (Auto) 6.4, Eosinophils (%) (Auto) 2.4, Basophils (%) (Auto) 0.6, Sodium Level 137, Potassium Level 3.7, Chloride Level 95L, Carbon Dioxide Level 30, Anion Gap 12, Blood Urea Nitrogen 22, Creatinine 0.7, Estimat Glomerular Filtration Rate > 60, Glucose Level 117H, Calcium Level 8.7 Height (Feet): 5 Height (Inches): 9.00 Weight (Pounds): 350 General Appearance: no apparent distress EENT: TMs normal Neck: supple Cardiovascular: regular rhythm Respiratory/Chest: lungs clear Abdomen: non tender Genitourinary/Rectal: normal rectal exam Extremities: normal inspection Edema: mild edema Neurologic: alert Dinesh Rodríguez October 01, 2016 21:38
[2016-10-02] VITALS: BP 99/54
[2016-10-02 04:00] VITALS: BP 98/41
[2016-10-02] MEDS: Cefepime HCl 1 GM in D5W 55 ML IVPB SCH ×2 (05:29→17:02)
[2016-10-02 07:03] LABS: BASOPHILS % (AUTO) 0.8 % (0.0-2.0); EOSINOPHILS % (AUTO) 2.7 % (0.0-3.0); LYMPHOCYTES % (AUTO) 17.4 % (20.0-45.0); MEAN CORPUSCULAR HEMOGLOBIN 25.3 PG (27.0-31.0); MEAN CORPUSCULAR HGB CONC 31.5 G/DL (32.0-36.0); MEAN CORPUSCULAR VOLUME 81 FL (80-99); MEAN PLATELET VOLUME 6.5 FL (6.5-10.1); MONOCYTES % (AUTO) 7.7 % (1.0-10.0); NEUTROPHILS % (AUTO) 71.5 % (45.0-75.0); PLATELET COUNT 262 K/UL (150-450); RED CELL DISTRIBUTION WIDTH 14.7 % (11.6-14.8); WHITE BLOOD COUNT 11.8 K/UL (4.8-10.8)
[2016-10-02 07:34] LABS: ANION GAP 12 (5-15); CALCIUM 8.5 mg/dL (8.6-10.2); CARBON DIOXIDE 30 mEQ/L (20-30); CHLORIDE 94 mEQ/L (98-107); CREATININE 0.7 mg/dL (0.5-0.9); GLOMERULAR FILTRATION RATE > 60 mL/min (>60); HEMOLYSIS 2; POTASSIUM 3.9 mEQ/L (3.4-4.9); SODIUM 136 mEQ/L (135-145)
[2016-10-02 07:53] VITALS: BP 138/83
[2016-10-02] MEDS: Xarelto 10mg tab ORAL SCH (08:42)
[2016-10-02] MEDS: Docusate 100mg cap ORAL SCH (08:42)
[2016-10-02] MEDS: Dyna-Hex 2% Top Sol 8oz TOPIC SCH (08:54)
[2016-10-02] MEDS: Clobetasol Cream 0.05% 15gm TOPIC SCH ×2 (08:54→17:03)
[2016-10-02] MEDS: Vancomycin 1250mg in D5W 275ml IVPB SCH (08:55)
[2016-10-02] MEDS ORDERED: Vanco pharmacy to dose MISC (11:39)
[2016-10-02] MEDS ORDERED: CEFEPIME-D1 GM/50 ML IVPB (11:39)
--- NOTE | 2016-10-02 11:40 | Internal Med Progress Note ---
Subjective Date of Service: October 02, 2016 Physician Name Jo Schmid Attending Physician Jo Schmid Current Medications Medications (Trade) Dose Ordered Sig/Key Route PRN Reason Start Time Stop Time Status Last Admin Dose Admin Acetaminophen (Tylenol) 650 mg Q4H PRN ORAL Mild Pain (Pain Scale 1-3) 09/27/16 17:30 10/27/16 17:29 Benazepril HCl (Lotensin) 40 mg DAILY ORAL 09/29/16 20:00 10/29/16 19:59 10/02/16 08:42 Cefepime HCl/ Dextrose (Maxipime/D5W) 55 ml @ 110 mls/hr Q12HR@0600,1800 IVPB 09/28/16 06:00 10/05/16 05:59 10/02/16 05:29 Chlorhexidine Gluconate 1 applic 1 applic DAILY TOPIC 09/29/16 22:00 10/29/16 21:59 10/02/16 08:54 Clobetasol Propionate (Temovate) 1 applic TWICE A DAY TOPIC 09/29/16 21:00 10/29/16 20:59 10/02/16 08:54 Dextrose (Dextrose 50%) STAT PRN IV Hypoglycemia 09/27/16 17:30 10/27/16 17:29 Diphenhydramine HCl (Benadryl) 25 mg Q6H PRN ORAL Itching/Pruritis 09/27/16 18:30 10/27/16 18:29 Docusate Sodium (Colace) 100 mg EVERY 12 HOURS ORAL 09/27/16 21:00 10/27/16 20:59 10/02/16 08:42 Hydrochlorothiazide 25 mg 25 mg DAILY ORAL 09/28/16 09:00 10/28/16 08:59 10/02/16 08:42 Hydromorphone HCl (Dilaudid) 1 mg Q4H PRN SUBQ Moderate Pain (Pain Scale 4-6) 09/28/16 18:30 10/05/16 18:29 Hydromorphone HCl (Dilaudid) 2 mg Q4H PRN IVP Severe Pain (Pain Scale 7-10) 09/28/16 18:30 10/05/16 18:29 10/02/16 05:30 Lorazepam (Ativan) 1 mg Q4H PRN ORAL For Anxiety 09/27/16 17:30 10/04/16 17:29 Magnesium Hydroxide (Mom) 30 ml HSPRN PRN ORAL Constipation 09/27/16 17:30 10/27/16 17:29 Ondansetron HCl (Zofran) 4 mg Q6H PRN IVP Nausea & Vomiting 09/27/16 17:30 10/27/16 17:29 Pantoprazole (Protonix) 40 mg ACBREAKFAST ORAL 10/01/16 06:30 10/28/16 08:59 10/02/16 05:29 Patient Own Medication (Patient's Own Med) 1 ea DAILY ORAL 09/29/16 21:00 10/29/16 20:59 10/02/16 08:42 Rivaroxaban (Xarelto) 20 mg DAILY ORAL 10/01/16 09:00 10/31/16 08:59 10/02/16 08:42 Vancomycin HCl (Vanco rx to dose) 1 ea DAILY PRN MISC Per rx protocol 09/27/16 17:30 10/27/16 17:29 Vancomycin HCl/ Dextrose (Vancomycin/D5W) 275 ml @ 183.708 mls/hr Q12H IVPB 10/01/16 21:00 10/06/16 20:59 10/02/16 08:55 Zolpidem Tartrate (Ambien) 5 mg HSPRN PRN ORAL Insomnia 09/27/16 21:00 10/27/16 20:59 Allergies: Coded Allergies: SULFA (SULFONAMIDE ANTIBIOTICS) (Unverified Allergy, Unknown, 05/02/15) allergy history per Dr. Robert BAUER Limited/Unobtainable: No Constitutional: Reports: no symptoms HEENT: Reports: no symptoms Cardiovascular: Reports: no symptoms Respiratory: Reports: no symptoms Gastrointestinal/Abdominal: Reports: no symptoms Genitourinary: Reports: no symptoms Neurologic/Psychiatric: Reports: no symptoms Subjective 55 YO F admitted with right shoulder and flank pain. Now cellulitis bilat legs. Objective Last Vital Signs Date Time Temp Pulse Resp B/P Pulse Ox O2 Delivery O2 Flow Rate FiO2 10/02/16 08:42 138/83 10/02/16 07:53 97.9 86 18 100 Room Air Laboratory Tests Test 10/02/16 06:00 White Blood Count 11.8 K/UL (4.8-10.8) H Red Blood Count 3.90 M/UL (4.20-5.40) L Hemoglobin 9.9 G/DL (12.0-16.0) L Hematocrit 31.4 % (37.0-47.0) L Mean Corpuscular Volume 81 FL (80-99) Mean Corpuscular Hemoglobin 25.3 PG (27.0-31.0) L Mean Corpuscular Hemoglobin Concent 31.5 G/DL (32.0-36.0) L Red Cell Distribution Width 14.7 % (11.6-14.8) Platelet Count 262 K/UL (150-450) Mean Platelet Volume 6.5 FL (6.5-10.1) Neutrophils (%) (Auto) 71.5 % (45.0-75.0) Lymphocytes (%) (Auto) 17.4 % (20.0-45.0) L Monocytes (%) (Auto) 7.7 % (1.0-10.0) Eosinophils (%) (Auto) 2.7 % (0.0-3.0) Basophils (%) (Auto) 0.8 % (0.0-2.0) Sodium Level 136 mEQ/L (135-145) Potassium Level 3.9 mEQ/L (3.4-4.9) Chloride Level 94 mEQ/L (98-107) L Carbon Dioxide Level 30 mEQ/L (20-30) Anion Gap 12 (5-15) Blood Urea Nitrogen 21 mg/dL (7-23) Creatinine 0.7 mg/dL (0.5-0.9) Estimat Glomerular Filtration Rate > 60 mL/min (>60) Glucose Level 104 mg/dL (74-106) Calcium Level 8.5 mg/dL (8.6-10.2) L Intake and Output 10/01/16 10/02/16 19:00 07:00 Intake Total 1080 ml 330.000 ml Balance 1080 ml 330.000 ml Intake Oral 1080 ml IV Total 330.000 ml # Voids 3 5 Objective General: Obese; alert, cooperative, no distress, appears stated age Head: normocephalic, without obvious abnormality, atraumatic Eyes: conjunctivae/corneas clear. PERRL, EOM's intact Throat: lips, mucosa, and tongue normal. MMM Neck: supple, symmetrical, trachea midline, and no JVD Lungs: clear to auscultation bilaterally Heart: regular rate and rhythm, S1, S2 normal, no murmur, click, rub or gallop Abdomen: soft, non-tender, non-distended, bowel sounds normal; no masses or organomegaly Extremities: extremities normal, atraumatic, no cyanosis or edema Pulses: 2+ and symmetric Skin: skin color, texture, turgor normal; no rashes or lesions Neurologic: grossly normal, no focal deficits Assessment/Plan Problem List: (1) DVT, bilateral lower limbs Assessment & Plan: Doppler neg. Await hemei consult. Consider discontinue xarelto due to vaginal bleeding-see ID consult (2) HTN (hypertension) Assessment & Plan: Cont benazepril. (3) Gout (4) Shoulder pain, right Assessment & Plan: Xray neg (5) Flank pain, acute (6) Bilateral cellulitis of lower leg Assessment & Plan: See ID note. Cont vanco and cefepime (7) Post-menopausal bleeding Assessment & Plan: See DRYING MACHINE BACK TENDER consult. May require D&C as outpatient. (8) UTI (urinary tract infection) (9) Morbid obesity (10) Factor V Leiden Assessment/Plan Discharge plannong: rehab on [address] [facility] [address] today when bed available. JO SCHMID October 02, 2016 11:40
[2016-10-02 12:00] VITALS: BP 113/74
--- NOTE | 2016-10-02 15:19 | Infectious Diseases Prog Note ---
Assessment/Plan Assessment/Plan ASSESSMENT AND PLAN: 1. bilateral leg cellulitis and edema - clinically improved, less pain and warmth - continue vancomycin and cefepime 1 week - ? significance of vre urine culture - only 30-40,000 cfu seen, ua only 5- 10 wbc and no urinary symptoms - will repeat ua and uc - watch labs 2. Elevated white noted - improved 3. vre colonization and isolation 4. Vaginal bleed. 5. Uterine fibroids. 6. Hypertension. 7. History of blood clots and deep venous thrombosis. 8. History of recurrent lower extremity cellulitis. 9. History of leg edema. 10. Blood pressure control per primary. 11. Anemia. 12. History of asthma. 13. History of gastrointestinal bleed. 14. Allergy to sulfa. 15. Social history is negative. 16. Family history is noncontributory. 17. MAR was noted. 18. Notes and records were reviewed. 19. Case was discussed with RN. 20. Continue treatment per primary consultants. 21. d/w Dr. Holguin Subjective Constitutional: Reports: fatigue, Denies: fever HEENT: Denies: congestion Respiratory: Denies: shortness of breath Cardiovascular: Denies: chest pain Gastrointestinal/Abdominal: Denies: diarrhea, nausea, vomiting Genitourinary: Reports: other - no eaton Neurologic: Denies: headache Psychiatric: Denies: depression Skin: Denies: rash Hematologic: Denies: bleeding Musculoskeletal: Denies: pain Allergies: Coded Allergies: SULFA (SULFONAMIDE ANTIBIOTICS) (Unverified Allergy, Unknown, 05/02/15) allergy history per Dr. Jones Objective Vital Signs Last 24 Hour Vital Signs Date Time Temp Pulse Resp B/P Pulse Ox O2 Delivery O2 Flow Rate FiO2 10/02/16 13:32 96.8 10/02/16 12:00 96.8 81 18 113/74 100 Room Air 10/02/16 08:42 138/83 10/02/16 07:53 97.9 86 18 138/83 100 Room Air 10/02/16 04:00 97.0 85 20 98/41 93 Room Air 10/02/16 00:00 97.5 87 20 99/54 Room Air 10/01/16 20:00 97.5 82 22 106/63 96 Room Air 10/01/16 16:53 122/78 10/01/16 16:00 97.3 78 18 122/78 99 Room Air Height (Feet): 5 Height (Inches): 9.00 Weight (Pounds): 350 General Appearance: no acute distress HEENT: normocephalic, atraumatic, anicteric, mucous membranes moist, PERRL, EOMI, pharynx normal, supple, no JVD Respiratory/Chest: lungs clear, normal breath sounds, no respiratory distress, no accessory muscle use Cardiovascular: normal rate, regular rhythm, no gallop/murmur, no JVD Abdomen: normal bowel sounds, soft, non tender, no organomegaly, non distended Genitourinary: other - no eaton Extremities: no cyanosis, other - less leg warmth and pain Skin: no rash Neurologic/Psychiatric: chapter relations administrator II-XII grossly normal, alert, 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, responsive Lymphatic: no neck adenopathy Musculoskeletal: no effusion Objective 09/27 - chest x-ray - nad (no pna) Microbiology Date/Time Source Procedure Growth Status 09/27/16 13:40 Blood Blood Culture - Preliminary NO GROWTH AFTER 4 DAYS Resulted 09/27/16 13:51 Nasal Nares MRSA Culture - Final Staphylococcus Aureus - Mrsa Complete 09/29/16 02:00 Urine,Clean Catch Urine Culture - Final Enterococcus Faecium - Vre Complete 09/27/16 13:51 Rectum VRE Culture - Final Enterococcus Faecium - Vre Enterococcus Faecalis - Vre Complete Laboratory Tests Test 10/02/16 06:00 White Blood Count 11.8 K/UL (4.8-10.8) H Red Blood Count 3.90 M/UL (4.20-5.40) L Hemoglobin 9.9 G/DL (12.0-16.0) L Hematocrit 31.4 % (37.0-47.0) L Mean Corpuscular Volume 81 FL (80-99) Mean Corpuscular Hemoglobin 25.3 PG (27.0-31.0) L Mean Corpuscular Hemoglobin Concent 31.5 G/DL (32.0-36.0) L Red Cell Distribution Width 14.7 % (11.6-14.8) Platelet Count 262 K/UL (150-450) Mean Platelet Volume 6.5 FL (6.5-10.1) Neutrophils (%) (Auto) 71.5 % (45.0-75.0) Lymphocytes (%) (Auto) 17.4 % (20.0-45.0) L Monocytes (%) (Auto) 7.7 % (1.0-10.0) Eosinophils (%) (Auto) 2.7 % (0.0-3.0) Basophils (%) (Auto) 0.8 % (0.0-2.0) Sodium Level 136 mEQ/L (135-145) Potassium Level 3.9 mEQ/L (3.4-4.9) Chloride Level 94 mEQ/L (98-107) L Carbon Dioxide Level 30 mEQ/L (20-30) Anion Gap 12 (5-15) Blood Urea Nitrogen 21 mg/dL (7-23) Creatinine 0.7 mg/dL (0.5-0.9) Estimat Glomerular Filtration Rate > 60 mL/min (>60) Glucose Level 104 mg/dL (74-106) Calcium Level 8.5 mg/dL (8.6-10.2) L Current Medications Medications (Trade) Dose Ordered Sig/Key Route PRN Reason Start Time Stop Time Status Last Admin Dose Admin Acetaminophen (Tylenol) 650 mg Q4H PRN ORAL Mild Pain (Pain Scale 1-3) 09/27/16 17:30 10/27/16 17:29 Benazepril HCl (Lotensin) 40 mg DAILY ORAL 09/29/16 20:00 10/29/16 19:59 10/02/16 08:42 Cefepime HCl/ Dextrose (Maxipime/D5W) 55 ml @ 110 mls/hr Q12HR@0600,1800 IVPB 09/28/16 06:00 10/05/16 05:59 10/02/16 05:29 Chlorhexidine Gluconate 1 applic 1 applic DAILY TOPIC 09/29/16 22:00 10/29/16 21:59 10/02/16 08:54 Clobetasol Propionate (Temovate) 1 applic TWICE A DAY TOPIC 09/29/16 21:00 10/29/16 20:59 10/02/16 08:54 Dextrose (Dextrose 50%) STAT PRN IV Hypoglycemia 09/27/16 17:30 10/27/16 17:29 Diphenhydramine HCl (Benadryl) 25 mg Q6H PRN ORAL Itching/Pruritis 09/27/16 18:30 10/27/16 18:29 Docusate Sodium (Colace) 100 mg EVERY 12 HOURS ORAL 09/27/16 21:00 10/27/16 20:59 10/02/16 08:42 Hydrochlorothiazide 25 mg 25 mg DAILY ORAL 09/28/16 09:00 10/28/16 08:59 10/02/16 08:42 Hydromorphone HCl (Dilaudid) 1 mg Q4H PRN SUBQ Moderate Pain (Pain Scale 4-6) 09/28/16 18:30 10/05/16 18:29 Hydromorphone HCl (Dilaudid) 2 mg Q4H PRN IVP Severe Pain (Pain Scale 7-10) 09/28/16 18:30 10/05/16 18:29 10/02/16 13:02 Lorazepam (Ativan) 1 mg Q4H PRN ORAL For Anxiety 09/27/16 17:30 10/04/16 17:29 Magnesium Hydroxide (Mom) 30 ml HSPRN PRN ORAL Constipation 09/27/16 17:30 10/27/16 17:29 Ondansetron HCl (Zofran) 4 mg Q6H PRN IVP Nausea & Vomiting 09/27/16 17:30 10/27/16 17:29 Pantoprazole (Protonix) 40 mg ACBREAKFAST ORAL 10/01/16 06:30 10/28/16 08:59 10/02/16 05:29 Patient Own Medication (Patient's Own Med) 1 ea DAILY ORAL 09/29/16 21:00 10/29/16 20:59 10/02/16 08:42 Rivaroxaban (Xarelto) 20 mg DAILY ORAL 10/01/16 09:00 10/31/16 08:59 10/02/16 08:42 Vancomycin HCl (Vanco rx to dose) 1 ea DAILY PRN MISC Per rx protocol 09/27/16 17:30 10/27/16 17:29 Vancomycin HCl/ Dextrose (Vancomycin/D5W) 275 ml @ 183.708 mls/hr Q12H IVPB 10/01/16 21:00 10/06/16 20:59 10/02/16 08:55 Zolpidem Tartrate (Ambien) 5 mg HSPRN PRN ORAL Insomnia 09/27/16 21:00 10/27/16 20:59 ASTER HACKETT October 02, 2016 15:19
[2016-10-02 16:00] VITALS: BP 131/77
[2016-10-02 17:01] LABS: APPEARANCE,URINE CLEAR; KETONES,URINE NEGATIVE (NEGATIVE); LEUKOCYTE ESTERASE ,URINE NEGATIVE (NEGATIVE); NITRITE,URINE NEGATIVE (NEGATIVE); PH,URINE 5 (4.5-8.0); PROTEIN,URINE 3+ (NEGATIVE); UROBILINOGEN,URINE NORMAL MG/DL (0.0-1.0)
[2016-10-02 17:32] LABS: AMORPHOUS SEDIMENT,UR FEW /LPF; BACTERIA,URINE FEW /HPF; SQUAMOUS EPITHELIAL CELL,UR FEW /LPF (NONE/OCC)
[2016-10-02] MEDS ORDERED: NS 275ml ONE (17:57)
--- NOTE | 2016-10-02 19:14 | Cardiology Report ---
APPROVED REPORT EKG Measurement Heart [id number] Normal sinus rhythm Normal ECG
--- NOTE | 2016-10-02 19:20 | General Progress Note ---
Assessment/Plan Assessment/Plan ASSESSMENT AND RECS: # Vaginal bleeding - given ongoing bleeding, a vaginal us showed uterine fibroids, Dr. Zuniga consulted, at this time, given recurrent bleeding, have restart xarelto on 10/01/16 # Factor V Leiden deficiency. # DVT hx on xarelto, to continue # PE hx # Reoccurring of the lower extremity cellulitis. # Hypokalemia. # Hypertension. # Morbid obesity. Subjective Constitutional: Reports: no symptoms HEENT: Reports: no symptoms Cardiovascular: Reports: no symptoms Respiratory: Reports: no symptoms Gastrointestinal/Abdominal: Reports: poor appetite Genitourinary: Reports: no symptoms Neurologic/Psychiatric: Reports: no symptoms Endocrine: Reports: no symptoms Hematologic/Lymphatic: Reports: anemia Allergies: Coded Allergies: SULFA (SULFONAMIDE ANTIBIOTICS) (Unverified Allergy, Unknown, 05/02/15) allergy history per Dr. Jones Subjective no events to reported Objective Last 24 Hour Vital Signs Date Time Temp Pulse Resp B/P Pulse Ox O2 Delivery O2 Flow Rate FiO2 10/02/16 16:00 97.0 80 18 131/77 100 Room Air 10/02/16 13:32 96.8 10/02/16 12:00 96.8 81 18 113/74 100 Room Air 10/02/16 08:42 138/83 10/02/16 07:53 97.9 86 18 138/83 100 Room Air 10/02/16 04:00 97.0 85 20 98/41 93 Room Air 10/02/16 00:00 97.5 87 20 99/54 Room Air 10/01/16 20:00 97.5 82 22 106/63 96 Room Air Intake and Output 10/01/16 10/02/16 19:00 07:00 Intake Total 1080 ml 330.000 ml Balance 1080 ml 330.000 ml Intake Oral 1080 ml IV Total 330.000 ml # Voids 3 5 Laboratory Tests 10/02/16 06:00: White Blood Count 11.8H, Red Blood Count 3.90L, Hemoglobin 9.9L, Hematocrit 31.4L, Mean Corpuscular Volume 81, Mean Corpuscular Hemoglobin 25.3L, Mean Corpuscular Hemoglobin Concent 31.5L, Red Cell Distribution Width 14.7, Platelet Count 262, Mean Platelet Volume 6.5, Neutrophils (%) (Auto) 71.5, Lymphocytes (%) (Auto) 17.4L, Monocytes (%) (Auto) 7.7, Eosinophils (%) (Auto) 2.7, Basophils (%) (Auto) 0.8, Sodium Level 136, Potassium Level 3.9, Chloride Level 94L, Carbon Dioxide Level 30, Anion Gap 12, Blood Urea Nitrogen 21, Creatinine 0.7, Estimat Glomerular Filtration Rate > 60, Glucose Level 104, Calcium Level 8.5L 10/02/16 16:30: Urine Color Pale yellow, Urine Appearance Clear, Urine pH 5, Urine Specific [place] 1.010, Urine Protein 3+H, Urine Glucose (UA) Negative, Urine Ketones Negative, Urine Occult Blood 3+H, Urine Nitrite Negative, Urine Bilirubin Negative, Urine Urobilinogen Normal, Urine Leukocyte Esterase Negative, Urine RBC 5-10H, Urine WBC 2-4, Urine Squamous Epithelial Cells Few, Urine Amorphous Sediment FewH, Urine Bacteria Few Height (Feet): 5 Height (Inches): 9.00 Weight (Pounds): 350 General Appearance: lethargic EENT: TMs normal Neck: supple Cardiovascular: normal rate Respiratory/Chest: no respiratory distress Genitourinary/Rectal: normal genital exam Edema: no edema noted Leg (L), no edema noted Leg (R) Edema: mild edema Neurologic: alert Skin: warm/dry Dinesh Rodríguez October 02, 2016 19:20
--- NOTE | 2016-10-03 14:31 | Discharge Summary ---
Discharge Summary Hospital Course Date of Admission September 27, 2016 at 13:32 Date of Discharge October 02, 2016 at 19:19 Admitting Diagnosis vaginal bleed on xeralto HPI Marielle Mccormack is a 55 year old female who was admitted on September 27, 2016 at 13: 32 for Vaginal Bleed On [place] Hospital Course dc summary #[id number] Discharge Medications New Medications: Cefepime Hcl/D5w (Cefepime-Dextrose 1 Gm/50 Ml) 1 Gm/50 Ml Piggyback 1 GM IVPB EVERY 12 HOURS for 7 Days, BAG [Vanco pharmacy to dose] () 1 EA MISC 1 EA MISC DAILY PRN for 7 Days Continued Medications: Acetaminophen With Codeine (T#3) (Tylenol #3 Tab*) Y Tab 2 TAB ORAL Q6H PRN for For Pain, TAB Acetaminophen With Codeine (T#3) (Tylenol With Codeine #3 Tablet) Y Tab 1 TAB ORAL Q4H PRN for For Pain, TAB Benazepril Hcl* (Benazepril Hcl*) 20 Mg Tablet 20 MG ORAL DAILY, TAB Docusate Sodium* (Colace*) 100 Mg Capsule 100 MG ORAL TWICE A DAY, CAP Febuxostat (Uloric) 40 Mg Tablet 40 MG ORAL DAILY, TAB 0 Refills Furosemide* (Lasix*) 20 Mg Tablet 20 MG ORAL DAILY for 2 Days, TAB Hydrochlorothiazide* (Hydrochlorothiazide*) 25 Mg Tablet Unknown Dose ORAL DAILY, TAB Hydrochlorothiazide* (Hydrochlorothiazide*) 25 Mg Tablet 25 MG ORAL DAILY, TAB Rivaroxaban (Xarelto*) 10 Mg Tablet 20 MG ORAL DAILY, TAB 0 Refills Discontinued Medications: Cefepime Hcl/D5w (Cefepime-Dextrose 1 Gm/50 Ml) 1 Gm/50 Ml Piggyback 1 GM IVPB Q24H, BAG Ertapenem Sodium* (INVanz*) 1 Gm Vial.port 1 GM IVPB Q24H for 7 Days, VIAL Metronidazole* (Flagyl*) 500 Mg Tablet 500 MG ORAL EVERY 8 HOURS for 10 Days, TAB [Vanco pharmacy to dose] () 1 EA MISC 1 EA MISC DAILY PRN for 10 Days Discharge Condition Upon Discharge: stable Discharge Disposition Patient was discharged to SNF/Subacute Facility(03) Discharge Diagnoses: Discharge Instructions Discharge Instructions Special Instructions I have been assigned to complete a D/C Summary on this account. I was not involved in the patient management Apryl Noland NP ([facility]) October 03, 2016 14:31
--- NOTE | 2016-10-03 23:17 | Discharge Summary 2 SIG ---
DATE OF ADMISSION: 09/27/2016 DATE OF DISCHARGE: 10/02/2016 REASON FOR ADMISSION AND HISTORY OF PRESENT ILLNESS: This 55 years old female, who is on Xarelto due to history of DVT and PE with HIV status, started experiencing right shoulder pain radiating to right flank. The patient also complained of vaginal bleeding. The patient also complained that her legs became red and warm to touch over the past few days. The patient was on oral antibiotics, as per primary care physician, Dr. Jones. The patient presented for evaluation. The patient's urinalysis upon evaluation in emergency room found mild leukocytosis. WBC is 12.1, elevated ESR 85, and noted stable hemoglobin and hematocrit initially. Hemoglobin was 12.1 and hematocrit 40.1. Urinalysis revealed hematuria, +5 occult blood, and 60 to 80 RBCs, pyuria 5 to 10, and few bacteria. The patient was admitted for further management. ADMITTING DIAGNOSES: 1. Cellulitis of bilateral lower extremity. 2. Vaginal bleeding. 3. Anticoagulation therapy. 4. History of pulmonary embolism. 5. History of deep venous thrombosis. 6. Possible urinary tract infection. 7. Hypertension. 8. Morbid obesity. 9. Right shoulder pain. 10. Right flank pain. 11. Human-immunodeficiency virus status. HOSPITAL COURSE: The patient was admitted. Xarelto initially stopped. Pain management provided. Venous Duplex bilateral lower extremity was negative. Right shoulder x-ray was negative for any acute pathology. No fracture, no misalignment, erosion, and periostitis were identified. Chest x-ray was negative. Abdominal pelvic transvaginal ultrasound revealed multiple uterine fibroids and Hematology and ID doctor for follow. Blood culture negative. Urine culture initially with VRE, however unclear significance, per ID given that the colony count was only 30,000 to 40,000. Repeated urine culture was negative. Pain management provided. Child And Family Services Specialist has seen and evaluated the patient. The patient was previously admitted to [facility]. The patient has a history of factor 5 Leiden deficiency. After bleeding, Xarelto resumed due to the need for anticoagulation due to history of PE and the DVT. ID follow. The patient was on antibiotics, per ID. The patient clinically improved. Recommended to continue vancomycin and cefepime for one more week at the group home facility. [employer] T[employer]AS[employer]Y CONSULTANT consult was requested and the patient will see the GED INSTRUCTOR as an outpatient for possible D&C. Blood pressure was managed with DUNIA-inhibitor and diuretic and was stable. The patient was stable for discharge. Hemoglobin is trending down. Prior to discharge, hemoglobin is 9.9 and hematocrit 31.4. DISCHARGE DIAGNOSES: 1. Postmenopausal vaginal bleeding. 2. Cellulitis of bilateral lower extremity. 3. Anticoagulation therapy due to the history of pulmonary embolism and deep venous thrombosis. 4. History of pulmonary embolism. 5. History of deep venous thrombosis, bilateral lower extremity. 6. Possible urinary tract infection. 7. Hypertension. 8. Anemia. 9. Morbid obesity. 10. Gout. 11. Right shoulder pain. 12. Factor 5 Leiden deficiency. DISCHARGE MEDICATIONS: See medication reconciliation list. DISCHARGE INSTRUCTIONS: The patient was discharged to group home facility for short time for IV antibiotics and follow up with GED INSTRUCTOR as an outpatient for possible D&C. Closely monitor hemoglobin and hematocrit, while at the facility. Monitor for any signs of bleeding. Trever Holguin M.D. I have been assigned to dictate discharge summary on this account and I was not involved in the patient's management. Apryl corneliustaisha N.P. DR: Noel JOB#: [id number] CC:
== END 2016-10-02 19:19 | DRG 760 ==
LOC: EMR 13:05 → 4W 13:32 → EDBEDREQ 14:07 → 4W 09-28 02:17
DX: D25.9 Leiomyoma of uterus, unspecified (principal); L03.116 Cellulitis of left lower limb; D68.51 Activated protein C resistance; I82.509 Chronic embolism and thrombosis of unspecified deep veins of unspecified lower extremity; N39.0 Urinary tract infection, site not specified; L03.115 Cellulitis of right lower limb; Z68.43 Body mass index [BMI] 50.0-59.9, adult; N95.0 Postmenopausal bleeding; I10 Essential (primary) hypertension; D64.9 Anemia, unspecified; E66.01 Morbid (severe) obesity due to excess calories; E87.6 Hypokalemia; Z79.01 Long term (current) use of anticoagulants; Z88.2 Allergy status to sulfonamides; M25.511 Pain in right shoulder; R10.9 Unspecified abdominal pain; M10.9 Gout, unspecified; D50.0 Iron deficiency anemia secondary to blood loss (chronic); Z86.711 Personal history of pulmonary embolism; E78.5 Hyperlipidemia, unspecified; I73.9 Peripheral vascular disease, unspecified; Z59.0 Homelessness; G89.4 Chronic pain syndrome
CPT/HCPCS: 36415; 36569; 71010; 76830; 76856; 76937; 80048; 80053; 80202; 81003; 82550; 83605; 83880; 84484; 85025; 85610; 85651; 85730; 87040; 87081; 87086; 87181; 93005; 93970; J2405

== ENCOUNTER 2016-11-01 13:09 | Outpatient (CLI) | payer MEDICARE, OTHER ==
--- NOTE | 2016-11-02 13:33 | Diagnostic Imaging Report ---
Indications: Pelvic pain, irregular vaginal bleeding LMP 10/25/16 Technique: Transabdominal and transvaginal real-time grayscale and duplex Doppler imaging of the pelvis was performed. Findings: Comparison: 09/27/16 Retroverted uterus measures 14 x 8.5 x 8.5cm. It demonstrates multiple circumscribed solid, heterogeneous masses, some with calcification.. The endometrial complex is obscured. Small cysts are present the cervix. No obvious free fluid is present in the cul-de-sac. Right ovary not identified. No extra-ovarian abnormality is seen. Left ovary not identified. No extra-ovarian abnormality is seen. IMPRESSION: Enlarged, retroverted, likely multi-fibroid uterus. Endometrial echocomplex obscured. Pathology including endometrial neoplasm not excludable. Nonvisualization of ovaries No change from prior exam
== END 2016-11-01 15:09 | disposition home or self-care (01) ==
LOC: ULS 13:09
DX: R10.2 Pelvic and perineal pain (principal)
CPT/HCPCS: 76830; 76856

== ENCOUNTER → 2016-11-23 | Outpatient (CLI) | payer MEDICARE, OTHER ==
[2016-11-23 17:22] LABS: APPEARANCE,URINE CLEAR; KETONES,URINE NEGATIVE (NEGATIVE); LEUKOCYTE ESTERASE ,URINE NEGATIVE (NEGATIVE); NITRITE,URINE NEGATIVE (NEGATIVE); PH,URINE 8 (4.5-8.0); PROTEIN,URINE NEGATIVE (NEGATIVE); UROBILINOGEN,URINE NORMAL MG/DL (0.0-1.0)
[2016-11-23 17:22] LABS: BASOPHILS % (AUTO) 1.4 % (0.0-2.0); LYMPHOCYTES % (AUTO) 16.5 % (20.0-45.0); MEAN CORPUSCULAR HEMOGLOBIN 25.6 PG (27.0-31.0); MEAN CORPUSCULAR HGB CONC 31.1 G/DL (32.0-36.0); MEAN CORPUSCULAR VOLUME 82 FL (80-99); MEAN PLATELET VOLUME 6.8 FL (6.5-10.1); MONOCYTES % (AUTO) 5.3 % (1.0-10.0); NEUTROPHILS % (AUTO) 75.9 % (45.0-75.0); PLATELET COUNT 282 K/UL (150-450); RED BLOOD COUNT 4.46 M/UL (4.20-5.40); RED CELL DISTRIBUTION WIDTH 15.1 % (11.6-14.8); WHITE BLOOD COUNT 13.4 K/UL (4.8-10.8)
[2016-11-23 17:30] LABS: ALANINE AMINOTRANSFERASE 9 U/L (3-33); ALBUMIN/GLOBULIN RATIO 0.8 (1.0-2.7); ANION GAP 10 (5-15); ASPARTATE AMINO TRANSFERASE 15 U/L (5-40); CALCIUM 9.4 mg/dL (8.6-10.2); CARBON DIOXIDE 29 mEQ/L (20-30); CHLORIDE 97 mEQ/L (98-107); CREATININE 0.7 mg/dL (0.5-0.9); GLOMERULAR FILTRATION RATE > 60 mL/min (>60); HEMOLYSIS 4; POTASSIUM 3.7 mEQ/L (3.4-4.9); SODIUM 136 mEQ/L (135-145); TOTAL PROTEIN 8.1 g/dL (6.6-8.7); URIC ACID 4.5 mg/dL (3.0-7.5)
[2016-11-23 17:31] LABS: HEMOGLOBIN A1C 5.7 % (< 6.0)
[2016-11-23 17:40] LABS: WBC,URINE 0-2 /HPF (0 - 2)
[2016-11-23 17:41] LABS: BACTERIA,URINE FEW /HPF; SQUAMOUS EPITHELIAL CELL,UR FEW /LPF (NONE/OCC)
== END | disposition home or self-care (01) ==
LOC: LAB 16:14
DX: I73.9 Peripheral vascular disease, unspecified (principal); Z86.718 Personal history of other venous thrombosis and embolism; Z87.440 Personal history of urinary (tract) infections; E11.9 Type 2 diabetes mellitus without complications
CPT/HCPCS: 36415; 80053; 81001; 83036; 84550; 85025

== ENCOUNTER 2017-01-24 19:57 | Inpatient (IN) | payer MEDICARE, OTHER ==
[~2017-01-24] VITALS: Ht 185.4 cm; Wt 195.0 kg
[2017-01-24] MEDS ORDERED: metroNIDAZOLE 500mg 100 ML IVPB ONE (22:45)
[2017-01-24] MEDS ORDERED: Piperacillin/Tazobactam 3.375 GM in NS 110 ML IVPB ONE (22:45)
[2017-01-24] MEDS ORDERED: Vancomycin 1.5gm/D5W 250ml 250 ML IVPB ONE (22:45)
[2017-01-25] VITALS (8 sets, daily range): BP systolic 93–113; BP diastolic 57–80
[2017-01-25 00:43] LABS: APPEARANCE,URINE CLEAR; KETONES,URINE NEGATIVE (NEGATIVE); LEUKOCYTE ESTERASE ,URINE 1+ (NEGATIVE); NITRITE,URINE NEGATIVE (NEGATIVE); PH,URINE 6 (4.5-8.0); PROTEIN,URINE NEGATIVE (NEGATIVE); UROBILINOGEN,URINE NORMAL MG/DL (0.0-1.0)
[2017-01-25 01:07] LABS: BACTERIA,URINE FEW /HPF; RBC,URINE 0-2 /HPF (0 - 2); SQUAMOUS EPITHELIAL CELL,UR FEW /LPF (NONE/OCC); WBC,URINE 0-2 /HPF (0 - 2)
[2017-01-25] MEDS ORDERED: HYDROmorphone 1mg/ml Carpuject IVP ONE ×2 (01:15→04:00)
--- NOTE | 2017-01-25 01:50 | Emergency Room Report ---
History of Present Illness General Chief Complaint: Abdominal Pain Source: Patient Present Illness HPI Patient presents with chronic left lower leg infection this worsened. She's had some fevers increasing pain. She last took Keflex for 10 days ago and that' s when that prescription and it appeared she's not seeing anybody in the wound care clinic at this time. The pain is 10/10 it radiates to towards her body. She denies any increased shortness of breath. She is morbidly obese. She's had history of cellulitis in the past bilaterally with venous disease. In addition to that she's had a history of DVTs in the past. Denies any other calf tenderness or shortness of breath or hemoptysis at this time. On Xarelto. Tetanus UTD. Allergies: Coded Allergies: SULFA (SULFONAMIDE ANTIBIOTICS) (Unverified Allergy, Unknown, 05/02/15) allergy history per Dr. Jones Patient History Past Medical History: see triage record Social History Narrative electric wheelchair Reviewed Nursing Documentation: PMH: Agreed, PSxH: Agreed Nursing Documentation-PMH Hx Hypertension: Yes Hx Asthma: Yes - Childhood Hx Cancer: No Hx Gastrointestinal Problems: Yes - GI bleeding Hx Neurological Problems: No Review of Systems All Other Systems: negative except mentioned in HPI Physical Exam Vital Signs Date Time Temp Pulse Resp B/P (MAP) Pulse Ox O2 Delivery O2 Flow Rate FiO2 01/24/17 20:18 97.2 89 16 108/73 99 Room Air Sp02 EP Interpretation: reviewed, normal General Appearance: no apparent distress, GCS 15, obese Head: normocephalic Eyes: bilateral eye normal inspection, bilateral eye PERRL ENT: moist mucus membranes Neck: supple Respiratory: chest non-tender, lungs clear, normal breath sounds Cardiovascular #1: regular rate, rhythm, edema Cardiovascular #2: 2+ radial (R) Gastrointestinal: normal inspection, normal bowel sounds, non tender, no mass, non-distended, overweight Musculoskeletal: back normal, normal range of motion, no calf tenderness, Stefan 's Sign negative Neurologic: alert, oriented x3, grossly normal Psychiatric: depressed affect Skin: warm/dry, other - venous disease and erythema LLE - deep lesion posterior lower calf, no drainage Medical Decision Making Diagnostic Impression: Primary Impression: Cellulitis, leg Qualified Codes: L03.116 - Cellulitis of left lower limb Additional Impressions: Morbid obesity Leukocytosis Qualified Codes: D72.829 - Elevated white blood cell count, unspecified ER Course Patient presents with recurrent cellulitis of her left leg. In addition to that for severe pain there. Differential includes cellulitis, osteomyelitis, resistant organisms of venous disease, DVT. Exam is against DVT at this time. Evaluation will be with labs EKG chest x-ray and x-ray of the tib-fib. Antibiotics will be started empirically. The patient does have a sulfa allergy. She is up-to-date on her tetanus. In addition she'll be treated with analgesics. EKG is remarkable for sinus rhythm and low voltage. Chest x-ray is no infiltrates. Tib-fib no evidence of periosteal elevation. Leukocytosis and elevated ESR. The patient is treated with analgesia is somewhat improved. Antibiotics begun. The patient is admitted to medical floor and is care of Dr. Holguin. Laboratory Tests Test 01/24/17 22:59 01/25/17 02:00 01/25/17 08:00 Urine Color Yellow Urine Appearance Clear Urine pH 6 (4.5-8.0) Urine Specific [place] 1.010 (1.005-1.035) Urine Protein Negative (NEGATIVE) Urine Glucose (UA) Negative (NEGATIVE) Urine Ketones Negative (NEGATIVE) Urine Occult Blood Negative (NEGATIVE) Urine Nitrite Negative (NEGATIVE) Urine Bilirubin Negative (NEGATIVE) Urine Urobilinogen Normal MG/DL (0.0-1.0) Urine Leukocyte Esterase 1+ (NEGATIVE) H Urine RBC 0-2 /HPF (0 - 2) Urine WBC 0-2 /HPF (0 - 2) Urine Squamous Epithelial Cells Few /LPF (NONE/OCC) Urine Bacteria Few /HPF (NONE) White Blood Count 13.7 K/UL (4.8-10.8) H 10.2 K/UL (4.8-10.8) Red Blood Count 4.54 M/UL (4.20-5.40) 3.98 M/UL (4.20-5.40) L Hemoglobin 11.5 G/DL (12.0-16.0) L 10.6 G/DL (12.0-16.0) L Hematocrit 37.6 % (37.0-47.0) 33.1 % (37.0-47.0) L Mean Corpuscular Volume 83 FL (80-99) 83 FL (80-99) Mean Corpuscular Hemoglobin 25.4 PG (27.0-31.0) L 26.5 PG (27.0-31.0) L Mean Corpuscular Hemoglobin Concent 30.7 G/DL (32.0-36.0) L 31.8 G/DL (32.0-36.0) L Red Cell Distribution Width 14.5 % (11.6-14.8) 14.3 % (11.6-14.8) Platelet Count 302 K/UL (150-450) 249 K/UL (150-450) Mean Platelet Volume 7.6 FL (6.5-10.1) 6.5 FL (6.5-10.1) Neutrophils (%) (Auto) 73.2 % (45.0-75.0) 77.2 % (45.0-75.0) H Lymphocytes (%) (Auto) 18.3 % (20.0-45.0) L 15.7 % (20.0-45.0) L Monocytes (%) (Auto) 6.1 % (1.0-10.0) 5.4 % (1.0-10.0) Eosinophils (%) (Auto) 1.3 % (0.0-3.0) 1.0 % (0.0-3.0) Basophils (%) (Auto) 1.0 % (0.0-2.0) 0.6 % (0.0-2.0) Erythrocyte Sedimentation Rate 45 MM/HR (0-30) H Sodium Level 135 mEQ/L (135-145) 137 mEQ/L (135-145) Potassium Level 3.8 mEQ/L (3.4-4.9) 3.4 mEQ/L (3.4-4.9) Chloride Level 95 mEQ/L (98-107) L 96 mEQ/L (98-107) L Carbon Dioxide Level 25 mEQ/L (20-30) 29 mEQ/L (20-30) Anion Gap 15 (5-15) 12 (5-15) Blood Urea Nitrogen 12 mg/dL (7-23) 12 mg/dL (7-23) Creatinine 0.7 mg/dL (0.5-0.9) 0.8 mg/dL (0.5-0.9) Estimate Glomerular Filtration Rate > 60 mL/min (>60) > 60 mL/min (>60) Glucose Level 88 mg/dL (74-106) 134 mg/dL (74-106) H Lactic Acid Level 0.90 mmol/L (0.66-2.22) Calcium Level 8.9 mg/dL (8.6-10.2) 8.5 mg/dL (8.6-10.2) L Total Bilirubin < 0.2 mg/dL (0.0-1.2) Aspartate Amino Transferase (AST) 20 U/L (5-40) Alanine Aminotransferase (ALT) 11 U/L (3-33) Alkaline Phosphatase 70 U/L (35-104) Total Creatine Kinase 193 U/L (26-140) H Creatine Kinase MB 2.8 ng/mL (< 3.8) Creatine Kinase MB Relative Index 1.4 Troponin I < 0.30 ng/mL (<=0.30) Total Protein 7.6 g/dL (6.6-8.7) Albumin 3.4 g/dL (3.5-5.2) L Globulin 4.2 g/dL Albumin/Globulin Ratio 0.8 (1.0-2.7) L EKG Diagnostic Results Rate: normal Rhythm: NSR ST Segments: no acute changes Rhythm Strip Diag. Results EP Interpretation: yes Rhythm: NSR, no PVC's, no ectopy, other - PVCs Chest X-Ray Diagnostic Results Chest X-Ray Diagnostic Results : Chest X-Ray Ordered: Yes # of Views/Limited/Complete: 1 View Indication: Other Interpretation: no consolidation, no effusion, no pneumothorax, other Impression: Other Electronically Signed by: Electronically signed by Flako Nunes MD Other X-Ray Diagnostic Results Other X-Ray Diagnostic Results : X-Ray ordered: L leg # of Views/Limited Vs Complete: 4 View Indication: Other EP Interpretation: Yes Interpretation: no dislocation, no fractures, other - no osteo Impression: Other Electronically Signed by: Electronically signed by Flako Nunes MD Last Vital Signs Date Time Temp Pulse Resp B/P (MAP) Pulse Ox O2 Delivery O2 Flow Rate FiO2 01/25/17 12:14 98.0 01/25/17 12:09 80 20 93/57 99 Room Air Status: improved Disposition: ADMITTED INPATIENT Condition: Serious Referrals: DENISE JONES (PCP) Flako Nunes M.D. Jan 25, 2017 01:50
[2017-01-25 02:13] LABS: EOSINOPHILS % (AUTO) 1.3 % (0.0-3.0); LYMPHOCYTES % (AUTO) 18.3 % (20.0-45.0); MEAN CORPUSCULAR HEMOGLOBIN 25.4 PG (27.0-31.0); MEAN CORPUSCULAR HGB CONC 30.7 G/DL (32.0-36.0); MEAN CORPUSCULAR VOLUME 83 FL (80-99); MEAN PLATELET VOLUME 7.6 FL (6.5-10.1); MONOCYTES % (AUTO) 6.1 % (1.0-10.0); NEUTROPHILS % (AUTO) 73.2 % (45.0-75.0); PLATELET COUNT 302 K/UL (150-450); RED BLOOD COUNT 4.54 M/UL (4.20-5.40); RED CELL DISTRIBUTION WIDTH 14.5 % (11.6-14.8); WHITE BLOOD COUNT 13.7 K/UL (4.8-10.8)
[2017-01-25 02:27] LABS: TROPONIN I < 0.30 ng/mL (<=0.30)
[2017-01-25 02:28] LABS: ALANINE AMINOTRANSFERASE 11 U/L (3-33); ALBUMIN/GLOBULIN RATIO 0.8 (1.0-2.7); ANION GAP 15 (5-15); ASPARTATE AMINO TRANSFERASE 20 U/L (5-40); CALCIUM 8.9 mg/dL (8.6-10.2); CARBON DIOXIDE 25 mEQ/L (20-30); CHLORIDE 95 mEQ/L (98-107); CREATININE 0.7 mg/dL (0.5-0.9); GLOMERULAR FILTRATION RATE > 60 mL/min (>60); HEMOLYSIS 62; POTASSIUM 3.8 mEQ/L (3.4-4.9); SODIUM 135 mEQ/L (135-145); TOTAL PROTEIN 7.6 g/dL (6.6-8.7)
[2017-01-25 02:38] LABS: CKMB 2.8 ng/mL (< 3.8)
[2017-01-25] MEDS ORDERED: Zosyn 3.375gm inj ONE (03:41)
[2017-01-25] MEDS ORDERED: Tylenol #3 tab (300mg/30mg) ORAL PRN ×2 (05:30)
[2017-01-25 08:44] LABS: BASOPHILS % (AUTO) 0.6 % (0.0-2.0); LYMPHOCYTES % (AUTO) 15.7 % (20.0-45.0); MEAN CORPUSCULAR HEMOGLOBIN 26.5 PG (27.0-31.0); MEAN CORPUSCULAR HGB CONC 31.8 G/DL (32.0-36.0); MEAN CORPUSCULAR VOLUME 83 FL (80-99); MEAN PLATELET VOLUME 6.5 FL (6.5-10.1); MONOCYTES % (AUTO) 5.4 % (1.0-10.0); NEUTROPHILS % (AUTO) 77.2 % (45.0-75.0); PLATELET COUNT 249 K/UL (150-450); RED BLOOD COUNT 3.98 M/UL (4.20-5.40); RED CELL DISTRIBUTION WIDTH 14.3 % (11.6-14.8); WHITE BLOOD COUNT 10.2 K/UL (4.8-10.8)
[2017-01-25 09:02] LABS: ANION GAP 12 (5-15); CALCIUM 8.5 mg/dL (8.6-10.2); CARBON DIOXIDE 29 mEQ/L (20-30); CHLORIDE 96 mEQ/L (98-107); CREATININE 0.8 mg/dL (0.5-0.9); GLOMERULAR FILTRATION RATE > 60 mL/min (>60); HEMOLYSIS 3; POTASSIUM 3.4 mEQ/L (3.4-4.9); SODIUM 137 mEQ/L (135-145)
[2017-01-25] MEDS: Docusate 100mg cap ORAL SCH ×2 (09:33→17:25)
[2017-01-25] MEDS: Cefepime HCl 2 GM in D5W 110 ML IVPB SCH ×2 (09:33→17:26)
[2017-01-25] MEDS: Benazepril 10mg tab ORAL SCH (09:34)
--- NOTE | 2017-01-25 11:16 | Diagnostic Imaging Report ---
Indication: Chest pain Comparison: 09/27/16 A single view chest radiograph was obtained. Findings: Cardiomediastinal appearance is within normal limits for age. Pulmonary vascularity is appropriate. The diaphragmatic contour is smooth and costophrenic angles are sharp. No pleural effusions are identified. The bones are unremarkable. No significant change appreciated. Exam is limited by body habitus. Impression: No acute findings
--- NOTE | 2017-01-25 11:16 | Diagnostic Imaging Report ---
Indication: Pain Comparison: None Findings: Two views of the left tibia and fibula were obtained. No acute fracture is seen. Bones are osteopenic. Generalized cutaneous edema is noted. Arthritis of the knee noted. Impression: No acute fracture
[2017-01-25] MEDS: HYDROmorphone 1mg/ml Carpuject IVP PRN ×2 (11:44→19:43)
[2017-01-25] MEDS ORDERED: Vancomycin 1.5gm/D5W 250ml 250 ML IVPB SCH (12:00)
--- NOTE | 2017-01-25 12:08 | Wound Care Consultation ---
Wound Assessment Wound Assessment : Wound Number: 1 Wound Present on Admission: Yes New Wound: No Status Change of Wound: No Wound Location Body Site Modif: left, lower Wound Location Body Site: leg Wound Type: other - open wound Akash Test: Does not Akash Wound Thickness: Full Thickness Wound Length: 1.0 Wound Width: 1.0 Wound Depth: less than 0.1 Percent of Wound [place]/Red: 100 Wound Drainage Amount: Scant Wound Drainage Odor: None/Absent Tissue Surrounding Wound: Intact Wound General Appearance: Reddened, Draining Wound Comment #1 Left lower leg with small open wound. Etiology unknown Recommendation -Keep clean and dry -Local wound care as ordered -Optimize nutrition -Assess and f/u accordingly for any changes JOHAN SUAREZ RN Jan 25, 2017 12:08
--- NOTE | 2017-01-25 12:37 | Infectious Diseases Prog Note ---
Assessment/Plan Assessment/Plan A) 1) left leg cellulitis 2) left leg wound infection 3) pmh noted 4) allergies - sulfa P) 1) vancomycin and cefepime 2) check wound culture 3) orders entered 4) thanks Subjective Allergies: Coded Allergies: SULFA (SULFONAMIDE ANTIBIOTICS) (Unverified Allergy, Unknown, 05/02/15) allergy history per Dr. Jones Objective Vital Signs Last 24 Hour Vital Signs Date Time Temp Pulse Resp B/P (MAP) Pulse Ox O2 Delivery O2 Flow Rate FiO2 01/25/17 12:14 98.0 01/25/17 12:09 98.0 80 20 93/57 99 Room Air 01/25/17 09:34 113/60 01/25/17 08:35 98.2 85 21 113/60 100 Room Air 01/25/17 05:46 96.4 78 20 93/58 100 Room Air 01/25/17 04:45 97.2 93 18 102/65 96 Room Air 01/25/17 04:45 93 18 102/65 96 Room Air 01/25/17 03:20 79 15 108/70 100 Room Air 01/25/17 02:25 97.2 01/25/17 01:00 97.2 83 12 110/76 100 Room Air 01/24/17 20:18 97.2 89 16 108/73 99 Room Air Height (Feet): 6 Height (Inches): 1.00 Weight (Pounds): 430 Microbiology Date/Time Source Procedure Growth Status 01/25/17 03:20 Leg Left Gram Stain - Final Resulted 01/25/17 03:20 Leg Left Wound Culture Pending Resulted Laboratory Tests Test 01/24/17 22:59 01/25/17 02:00 01/25/17 08:00 Urine Color Yellow Urine Appearance Clear Urine pH 6 (4.5-8.0) Urine Specific [place] 1.010 (1.005-1.035) Urine Protein Negative (NEGATIVE) Urine Glucose (UA) Negative (NEGATIVE) Urine Ketones Negative (NEGATIVE) Urine Occult Blood Negative (NEGATIVE) Urine Nitrite Negative (NEGATIVE) Urine Bilirubin Negative (NEGATIVE) Urine Urobilinogen Normal MG/DL (0.0-1.0) Urine Leukocyte Esterase 1+ (NEGATIVE) H Urine RBC 0-2 /HPF (0 - 2) Urine WBC 0-2 /HPF (0 - 2) Urine Squamous Epithelial Cells Few /LPF (NONE/OCC) Urine Bacteria Few /HPF (NONE) White Blood Count 13.7 K/UL (4.8-10.8) H 10.2 K/UL (4.8-10.8) Red Blood Count 4.54 M/UL (4.20-5.40) 3.98 M/UL (4.20-5.40) L Hemoglobin 11.5 G/DL (12.0-16.0) L 10.6 G/DL (12.0-16.0) L Hematocrit 37.6 % (37.0-47.0) 33.1 % (37.0-47.0) L Mean Corpuscular Volume 83 FL (80-99) 83 FL (80-99) Mean Corpuscular Hemoglobin 25.4 PG (27.0-31.0) L 26.5 PG (27.0-31.0) L Mean Corpuscular Hemoglobin Concent 30.7 G/DL (32.0-36.0) L 31.8 G/DL (32.0-36.0) L Red Cell Distribution Width 14.5 % (11.6-14.8) 14.3 % (11.6-14.8) Platelet Count 302 K/UL (150-450) 249 K/UL (150-450) Mean Platelet Volume 7.6 FL (6.5-10.1) 6.5 FL (6.5-10.1) Neutrophils (%) (Auto) 73.2 % (45.0-75.0) 77.2 % (45.0-75.0) H Lymphocytes (%) (Auto) 18.3 % (20.0-45.0) L 15.7 % (20.0-45.0) L Monocytes (%) (Auto) 6.1 % (1.0-10.0) 5.4 % (1.0-10.0) Eosinophils (%) (Auto) 1.3 % (0.0-3.0) 1.0 % (0.0-3.0) Basophils (%) (Auto) 1.0 % (0.0-2.0) 0.6 % (0.0-2.0) Erythrocyte Sedimentation Rate 45 MM/HR (0-30) H Sodium Level 135 mEQ/L (135-145) 137 mEQ/L (135-145) Potassium Level 3.8 mEQ/L (3.4-4.9) 3.4 mEQ/L (3.4-4.9) Chloride Level 95 mEQ/L (98-107) L 96 mEQ/L (98-107) L Carbon Dioxide Level 25 mEQ/L (20-30) 29 mEQ/L (20-30) Anion Gap 15 (5-15) 12 (5-15) Blood Urea Nitrogen 12 mg/dL (7-23) 12 mg/dL (7-23) Creatinine 0.7 mg/dL (0.5-0.9) 0.8 mg/dL (0.5-0.9) Estimat Glomerular Filtration Rate > 60 mL/min (>60) > 60 mL/min (>60) Glucose Level 88 mg/dL (74-106) 134 mg/dL (74-106) H Lactic Acid Level 0.90 mmol/L (0.66-2.22) Calcium Level 8.9 mg/dL (8.6-10.2) 8.5 mg/dL (8.6-10.2) L Total Bilirubin < 0.2 mg/dL (0.0-1.2) Aspartate Amino Transf (AST/SGOT) 20 U/L (5-40) Alanine Aminotransferase (ALT/SGPT) 11 U/L (3-33) Alkaline Phosphatase 70 U/L (35-104) Total Creatine Kinase 193 U/L (26-140) H Creatine Kinase MB 2.8 ng/mL (< 3.8) Creatine Kinase MB Relative Index 1.4 Troponin I < 0.30 ng/mL (<=0.30) Total Protein 7.6 g/dL (6.6-8.7) Albumin 3.4 g/dL (3.5-5.2) L Globulin 4.2 g/dL Albumin/Globulin Ratio 0.8 (1.0-2.7) L Current Medications Medications (Trade) Dose Ordered Sig/Key Route PRN Reason Start Time Stop Time Status Last Admin Dose Admin Acetaminophen/ Codeine Phosphate (Tylenol #3) 1 tab Q4H PRN ORAL For Pain MILD-MODERATE 01/25/17 05:30 02/01/17 05:29 Acetaminophen/ Codeine Phosphate (Tylenol #3) 2 tab Q6H PRN ORAL For Pain SEVERE PAIN 01/25/17 05:30 02/01/17 05:29 Benazepril HCl (Lotensin) 20 mg DAILY ORAL 01/25/17 09:00 02/24/17 08:59 01/25/17 09:34 Cefepime HCl 2 gm/ Dextrose 110 ml @ 220 mls/hr Q8H IVPB 01/25/17 10:00 02/01/17 09:59 01/25/17 09:33 Docusate Sodium (Colace) 100 mg TWICE A DAY ORAL 01/25/17 09:00 02/24/17 08:59 01/25/17 09:33 Furosemide (Lasix) 20 mg DAILY ORAL 01/25/17 09:00 02/24/17 08:59 01/25/17 09:34 Hydrochlorothiazide (Hydrodiuril) 25 mg DAILY ORAL 01/25/17 09:00 02/24/17 08:59 01/25/17 09:33 Hydromorphone HCl (Dilaudid) 1 mg Q4H PRN IVP For Pain 01/25/17 06:00 02/01/17 05:59 01/25/17 11:44 Non-Formulary Medication (Non-Formulary Med) 1 ea DAILY ORAL 01/25/17 09:00 02/24/17 08:59 UNV Ondansetron HCl (Zofran) 4 mg Q6H PRN IVP Nausea & Vomiting 01/25/17 01:15 02/24/17 01:14 01/25/17 01:55 Rivaroxaban (Xarelto) 20 mg DAILY@1700 ORAL 01/25/17 17:00 02/24/17 16:59 Vancomycin HCl (Vanco rx to dose) 1 ea DAILY PRN MISC Per rx protocol 01/25/17 06:15 02/24/17 06:14 Vancomycin HCl/ Dextrose 250 ml @ 125 mls/hr Q8H IVPB 01/25/17 12:00 01/30/17 11:59 01/25/17 12:26 ASTER HACKETT Jan 25, 2017 12:37
--- NOTE | 2017-01-25 14:59 | Consultation ---
History of Present Illness General Chief Complaint: Abdominal Pain Present Illness Allergies: Coded Allergies: SULFA (SULFONAMIDE ANTIBIOTICS) (Unverified Allergy, Unknown, 05/02/15) allergy history per Dr. Jones Medication History Scheduled Benazepril Hcl* (Benazepril Hcl*), 20 MG ORAL DAILY, (Reported) Cefepime Hcl/D5w (Cefepime-Dextrose 1 Gm/50 Ml), 1 GM IVPB EVERY 12 HOURS Docusate Sodium* (Colace*), 100 MG ORAL TWICE A DAY, (Reported) Febuxostat (Uloric), 40 MG ORAL DAILY, (Reported) Furosemide* (Lasix*), 20 MG ORAL DAILY, (Reported) Hydrochlorothiazide* (Hydrochlorothiazide*), Unknown Dose ORAL DAILY, (Reported) Hydrochlorothiazide* (Hydrochlorothiazide*), 25 MG ORAL DAILY, (Reported) Rivaroxaban (Xarelto*), 20 MG ORAL DAILY, (Reported) Scheduled PRN Acetaminophen With Codeine (T#3) (Tylenol #3 Tab*), 2 TAB ORAL Q6H PRN for For Pain, (Reported) Acetaminophen With Codeine (T#3) (Tylenol With Codeine #3 Tablet), 1 TAB ORAL Q4H PRN for For Pain, (Reported) [[facility] pharmacy to dose], 1 EA MISC DAILY PRN Patient History Healthcare decision maker Resuscitation status Full Code Advanced Directive on File Yes Physical Exam Last 24 Hour Vital Signs Date Time Temp Pulse Resp B/P (MAP) Pulse Ox O2 Delivery O2 Flow Rate FiO2 01/25/17 12:14 98.0 01/25/17 12:09 98.0 80 20 93/57 99 Room Air 01/25/17 09:34 113/60 01/25/17 08:35 98.2 85 21 113/60 100 Room Air 01/25/17 05:46 96.4 78 20 93/58 100 Room Air 01/25/17 04:45 97.2 93 18 102/65 96 Room Air 01/25/17 04:45 93 18 102/65 96 Room Air 01/25/17 03:20 79 15 108/70 100 Room Air 01/25/17 02:25 97.2 01/25/17 01:00 97.2 83 12 110/76 100 Room Air 01/24/17 20:18 97.2 89 16 108/73 99 Room Air Intake and Output 01/25/17 01/26/17 19:00 07:00 Intake Total 520 ml Output Total 400 ml Balance 120 ml Intake Oral 520 ml Output Urine Total 400 ml # Bowel Movements 1 Laboratory Tests Test 01/24/17 22:59 01/25/17 02:00 01/25/17 08:00 Urine Color Yellow Urine Appearance Clear Urine pH 6 (4.5-8.0) Urine Specific [place] 1.010 (1.005-1.035) Urine Protein Negative (NEGATIVE) Urine Glucose (UA) Negative (NEGATIVE) Urine Ketones Negative (NEGATIVE) Urine Occult Blood Negative (NEGATIVE) Urine Nitrite Negative (NEGATIVE) Urine Bilirubin Negative (NEGATIVE) Urine Urobilinogen Normal MG/DL (0.0-1.0) Urine Leukocyte Esterase 1+ (NEGATIVE) H Urine RBC 0-2 /HPF (0 - 2) Urine WBC 0-2 /HPF (0 - 2) Urine Squamous Epithelial Cells Few /LPF (NONE/OCC) Urine Bacteria Few /HPF (NONE) White Blood Count 13.7 K/UL (4.8-10.8) H 10.2 K/UL (4.8-10.8) Red Blood Count 4.54 M/UL (4.20-5.40) 3.98 M/UL (4.20-5.40) L Hemoglobin 11.5 G/DL (12.0-16.0) L 10.6 G/DL (12.0-16.0) L Hematocrit 37.6 % (37.0-47.0) 33.1 % (37.0-47.0) L Mean Corpuscular Volume 83 FL (80-99) 83 FL (80-99) Mean Corpuscular Hemoglobin 25.4 PG (27.0-31.0) L 26.5 PG (27.0-31.0) L Mean Corpuscular Hemoglobin Concent 30.7 G/DL (32.0-36.0) L 31.8 G/DL (32.0-36.0) L Red Cell Distribution Width 14.5 % (11.6-14.8) 14.3 % (11.6-14.8) Platelet Count 302 K/UL (150-450) 249 K/UL (150-450) Mean Platelet Volume 7.6 FL (6.5-10.1) 6.5 FL (6.5-10.1) Neutrophils (%) (Auto) 73.2 % (45.0-75.0) 77.2 % (45.0-75.0) H Lymphocytes (%) (Auto) 18.3 % (20.0-45.0) L 15.7 % (20.0-45.0) L Monocytes (%) (Auto) 6.1 % (1.0-10.0) 5.4 % (1.0-10.0) Eosinophils (%) (Auto) 1.3 % (0.0-3.0) 1.0 % (0.0-3.0) Basophils (%) (Auto) 1.0 % (0.0-2.0) 0.6 % (0.0-2.0) Erythrocyte Sedimentation Rate 45 MM/HR (0-30) H Sodium Level 135 mEQ/L (135-145) 137 mEQ/L (135-145) Potassium Level 3.8 mEQ/L (3.4-4.9) 3.4 mEQ/L (3.4-4.9) Chloride Level 95 mEQ/L (98-107) L 96 mEQ/L (98-107) L Carbon Dioxide Level 25 mEQ/L (20-30) 29 mEQ/L (20-30) Anion Gap 15 (5-15) 12 (5-15) Blood Urea Nitrogen 12 mg/dL (7-23) 12 mg/dL (7-23) Creatinine 0.7 mg/dL (0.5-0.9) 0.8 mg/dL (0.5-0.9) Estimat Glomerular Filtration Rate > 60 mL/min (>60) > 60 mL/min (>60) Glucose Level 88 mg/dL (74-106) 134 mg/dL (74-106) H Lactic Acid Level 0.90 mmol/L (0.66-2.22) Calcium Level 8.9 mg/dL (8.6-10.2) 8.5 mg/dL (8.6-10.2) L Total Bilirubin < 0.2 mg/dL (0.0-1.2) Aspartate Amino Transf (AST/SGOT) 20 U/L (5-40) Alanine Aminotransferase (ALT/SGPT) 11 U/L (3-33) Alkaline Phosphatase 70 U/L (35-104) Total Creatine Kinase 193 U/L (26-140) H Creatine Kinase MB 2.8 ng/mL (< 3.8) Creatine Kinase MB Relative Index 1.4 Troponin I < 0.30 ng/mL (<=0.30) Total Protein 7.6 g/dL (6.6-8.7) Albumin 3.4 g/dL (3.5-5.2) L Globulin 4.2 g/dL Albumin/Globulin Ratio 0.8 (1.0-2.7) L Microbiology Date/Time Source Procedure Growth Status 01/25/17 03:20 Leg Left Gram Stain - Final Resulted 01/25/17 03:20 Leg Left Wound Culture Pending Resulted Height (Feet): 6 Height (Inches): 1.00 Weight (Pounds): 430 Medications Current Medications Medications (Trade) Dose Ordered Sig/Key Route PRN Reason Start Time Stop Time Status Last Admin Dose Admin Acetaminophen/ Codeine Phosphate (Tylenol #3) 1 tab Q4H PRN ORAL For Pain MILD-MODERATE 01/25/17 05:30 02/01/17 05:29 Acetaminophen/ Codeine Phosphate (Tylenol #3) 2 tab Q6H PRN ORAL For Pain SEVERE PAIN 01/25/17 05:30 02/01/17 05:29 Benazepril HCl (Lotensin) 20 mg DAILY ORAL 01/25/17 09:00 02/24/17 08:59 01/25/17 09:34 Cefepime HCl 2 gm/ Dextrose 110 ml @ 220 mls/hr Q8H IVPB 01/25/17 10:00 02/01/17 09:59 01/25/17 09:33 Docusate Sodium (Colace) 100 mg TWICE A DAY ORAL 01/25/17 09:00 02/24/17 08:59 01/25/17 09:33 Furosemide (Lasix) 20 mg DAILY ORAL 01/25/17 09:00 02/24/17 08:59 01/25/17 09:34 Hydrochlorothiazide (Hydrodiuril) 25 mg DAILY ORAL 01/25/17 09:00 02/24/17 08:59 01/25/17 09:33 Hydromorphone HCl (Dilaudid) 1 mg Q4H PRN IVP For Pain 01/25/17 06:00 02/01/17 05:59 01/25/17 11:44 Ondansetron HCl (Zofran) 4 mg Q6H PRN IVP Nausea & Vomiting 01/25/17 01:15 02/24/17 01:14 01/25/17 01:55 Patient Own Medication (Patient's Own Med) 1 ea DAILY ORAL 01/25/17 15:00 02/24/17 14:59 Rivaroxaban (Xarelto) 20 mg DAILY@1700 ORAL 01/25/17 17:00 02/24/17 16:59 Vancomycin HCl (Vanco rx to dose) 1 ea DAILY PRN MISC Per rx protocol 01/25/17 06:15 02/24/17 06:14 Vancomycin HCl/ Dextrose 250 ml @ 125 mls/hr Q8H IVPB 01/25/17 12:00 01/30/17 11:59 01/25/17 12:26 VIKTORIYA CONNOR Jan 25, 2017 14:59
[2017-01-25] MEDS: ULORIC 40 MG ORAL SCH (16:07)
[2017-01-25] MEDS ORDERED: Xarelto 10mg tab ORAL SCH (17:00)
--- NOTE | 2017-01-25 18:15 | History & Physical ---
History and Physical History & Physicial Dictated for Int Med no. [id number]. JO SCHMID Jan 25, 2017 18:15
[2017-01-25] MEDS: Eliquis 2.5mg tablet ORAL SCH (19:46)
[2017-01-25] MEDS: Vancomycin 1250mg/D5W 250ml IVPB SCH (19:58)
[2017-01-26] VITALS (7 sets, daily range): BP systolic 94–120; BP diastolic 62–75
[2017-01-26] MEDS: Cefepime HCl 2 GM in D5W 110 ML IVPB SCH ×3 (01:20→18:56)
[2017-01-26] MEDS ORDERED: DiphenhydrAMINE 50mg/ml Inj IVP PRN (01:30)
--- NOTE | 2017-01-26 02:15 | History and Physical Report ---
DATE OF ADMISSION: 01/24/2017 Chief Complaint: The patient is a 56-year-old female, who presents with chief complaint of left leg pain and swelling. History Of Present Illness: This began three to four weeks prior to admission. The patient is followed as an outpatient by Dr. Jones. The patient has a left calf ulcer, which has been treated by wound care. The patient also completed a Keflex course of treatment recently. The patient presented to [facility] complaining of left lower extremity pain and swelling. The patient was found to have cellulitis and an ulcer of the left lower extremity. The patient is admitted for cellulitis of the left lower extremity. Review Of Systems: Constitutional: The patient denies weight loss or weight gain. The patient complains of subjective fevers and chills. HEENT: The patient denies ear or throat pain. The patient denies headache. Cardiovascular: The patient denies palpitations or chest pain. Chest: The patient denies wheezes or shortness of breath. Abdomen: The patient denies nausea, vomiting, diarrhea, or constipation. Genitourinary: The patient denies dysuria or increased frequency of urination. Neuromuscular: The patient complains of left lower extremity pain and swelling as above. The patient denies seizures or generalized weakness. PAST MEDICAL HISTORY: Significant for: 1. Hypertension. 2. 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 3. Current pain syndrome. 4. Previous history of bilateral leg cellulitis. 5. Obesity. PAST SURGICAL HISTORY: The patient denies. CURRENT MEDICATIONS: 1. Tylenol No. 3 with codeine one tablet p.o. q.4 hours p.r.n. 2. Benazepril 20 mg one tablet p.o. daily. 3. Colace 100 mg one tablet p.o. twice daily. 4. Uloric 40 mg p.o. daily. 5. Lasix 20 mg one tablet p.o. daily. 6. Hydrochlorothiazide 25 mg one tablet p.o. daily. 7. Eliquis 5 mg one tablet p.o. twice daily. ALLERGIES: Sulfa. Social History: The patient is single and is disabled. The patient denies tobacco or alcohol use. PHYSICAL EXAMINATION: Vital Signs: Temperature 96.4, respirations 20, pulse 78, and blood pressure 93/58. General: The patient is a well-nourished, well-nourished, obese female, in no apparent distress. HEENT: Eyes, pupils are equal and responsive to light and accommodation. Extraocular movements are intact. NECK: Supple without lymphadenopathy. Chest: Lungs are clear to auscultation bilaterally without wheezes or rales. Cardiovascular: Regular rhythm and rate. S1 and S2 are normal without murmurs, rubs, or gallops. Abdomen: Soft, nontender, and nondistended. Positive bowel sounds. No evidence of hepatosplenomegaly. Currently, no rebound or guarding noted. Extremities: Negative for clubbing. The bilateral lower extremities are edematous with 2+ edema bilaterally at the ankles. There are chronic venous stasis changes bilaterally. Laboratory Studies: WBC 13.7, hemoglobin 11.5, hematocrit 37.6, and platelets 302,000. Sodium 135, potassium 3.8, chloride 95, CO2 25, BUN 12, creatinine 0.7, and glucose 88. Urinalysis showed 1+ leukocyte esterase. ASSESSMENT: This is a 56-year-old female with: 1. Cellulitis, left leg. 2. Hypertension. 3. History of deep venous thrombosis of bilateral lower extremities. 4. Obesity. TREATMENT: 1. Cellulitis of the left leg. Infectious Disease consultation has been obtained with Dr. Javed. The patient has been started empirically on intravenous vancomycin and cefepime. We will follow recommendation of Infectious Disease. 2. Hypertension. Continue benazepril and hydrochlorothiazide as above. 3. History of deep venous thrombosis of bilateral lower extremities. Continue Eliquis as above. A venous duplex Doppler of bilateral lower extremities is pending. 4. Obesity. Trever Holguin M.D. DR: ALBERTO JOB#: [id number] CC:
[2017-01-26] MEDS: Vancomycin 1250mg/D5W 250ml IVPB SCH ×2 (03:31→13:27)
[2017-01-26] MEDS: HYDROmorphone 1mg/ml Carpuject IVP PRN ×2 (04:47→10:02)
[2017-01-26 06:55] LABS: PROTHROMBIN TIME 10.2 SEC (9.30-11.50)
[2017-01-26 06:58] LABS: ANION GAP 9 (5-15); CALCIUM 8.8 mg/dL (8.6-10.2); CARBON DIOXIDE 31 mEQ/L (20-30); CHLORIDE 95 mEQ/L (98-107); CREATININE 0.7 mg/dL (0.5-0.9); GLOMERULAR FILTRATION RATE > 60 mL/min (>60); HEMOLYSIS 0; POTASSIUM 3.6 mEQ/L (3.4-4.9); SODIUM 135 mEQ/L (135-145)
[2017-01-26 07:09] LABS: BASOPHILS % (AUTO) 1.2 % (0.0-2.0); EOSINOPHILS % (AUTO) 1.3 % (0.0-3.0); LYMPHOCYTES % (AUTO) 13.3 % (20.0-45.0); MEAN CORPUSCULAR HGB CONC 31.2 G/DL (32.0-36.0); MEAN CORPUSCULAR VOLUME 83 FL (80-99); MEAN PLATELET VOLUME 6.9 FL (6.5-10.1); MONOCYTES % (AUTO) 6.9 % (1.0-10.0); NEUTROPHILS % (AUTO) 77.2 % (45.0-75.0); PLATELET COUNT 217 K/UL (150-450); RED BLOOD COUNT 4.53 M/UL (4.20-5.40); RED CELL DISTRIBUTION WIDTH 14.5 % (11.6-14.8); WHITE BLOOD COUNT 9.3 K/UL (4.8-10.8)
[2017-01-26 07:42] LABS: HEMOLYSIS 5; IRON 45 ug/dL (37-145); LACTATE DEHYDROGENASE 202 U/L (135-230); TOTAL IRON BINDING CAPACITY 296 ug/dL (250-400)
[2017-01-26] MEDS: Benazepril 10mg tab ORAL SCH (09:00)
[2017-01-26] MEDS: Docusate 100mg cap ORAL SCH ×2 (09:18→18:56)
[2017-01-26] MEDS: Eliquis 2.5mg tablet ORAL SCH ×2 (09:22→18:56)
[2017-01-26] MEDS: ULORIC 40 MG ORAL SCH (09:23)
[2017-01-26 09:47] LABS: ERYTHROCYTE SEDIMENTATION RATE 56 MM/HR (0-30)
[2017-01-26] MEDS: Dyna-Hex 2% Top Sol 8oz TOPIC SCH (10:00)
[2017-01-26] MEDS ORDERED: Lidocaine 1% Plain 30 ml INJ ONE (10:00)
[2017-01-26] MEDS ORDERED: Heparin 2000 units/Ns 1000ml INJ ONE (10:00)
[2017-01-26 10:50] LABS: RETICULOCYTE COUNT 0.7 % (0.0-2.0)
[2017-01-26 11:11] LABS: BAND NEUTROPHILS % (MANUAL) 0 % (0-8); BASOPHILS % (MANUAL) 1 % (0-2); EOSINOPHILS % (MANUAL) 1 % (0-3); LYMPHOCYTES % (MANUAL) 12 % (20-45); NEUTROPHILS % (MANUAL) 80 % (45-75); PLATELET ESTIMATE ADEQUATE; PLATELET MORPHOLOGY NORMAL; TOTAL CELLS COUNTED 100
[2017-01-26 11:12] LABS: HYPOCHROMASIA 1+
[2017-01-26 11:34] LABS: PATH BLOOD SMEAR/OMC SENT TO PATHOLOGIST
--- NOTE | 2017-01-26 12:17 | Diagnostic Imaging Report ---
Indications: Needs long-term IV access or IV antibiotics left leg infection Technique: Procedure performed at bedside. Procedural timeout performed. Ultrasound confirms patent compressible brachial vein. Total sterile technique, including sterile probe cover and sterile gel, sterile gloves, hand hygiene, hat, mask,, sterile gown, large sterile drape, and preparation with 2% chlorhexidine utilized. Local anesthesia with 1% lidocaine. Under real-time ultrasound guidance, puncture brachial vein using 21-gauge needle, passage 0.018 guidewire, exchange for 5 [place] peel-away sheath. 5 [place] Bard dual-lumen power PICC cut to 40 cm. It was inserted through the peel-away sheath. Peel-away sheath and guidewire removed. Catheter fixed to the skin. Both catheter ports aspirated and flushed. Patient tolerated procedure well, without immediate complication. Followup chest x-ray obtained, documents catheter tip position at the innominate venous confluence Impression: Successful bedside placement of left arm PICC under sonographic guidance, as described above.
--- NOTE | 2017-01-26 13:59 | Infectious Diseases Prog Note ---
Assessment/Plan Assessment/Plan A) 1) left leg cellulitis 2) staph aureus left leg wound infection 3) pmh noted 4) allergies - sulfa P) 1) vancomycin and cefepime 2) check wound culture final 3) orders entered 4) watch labs 5) thanks Subjective Allergies: Coded Allergies: SULFA (SULFONAMIDE ANTIBIOTICS) (Unverified Allergy, Unknown, 05/02/15) allergy history per Dr. Jones Objective Vital Signs Last 24 Hour Vital Signs Date Time Temp Pulse Resp B/P (MAP) Pulse Ox O2 Delivery O2 Flow Rate FiO2 01/26/17 12:00 97.3 60 20 118/67 100 Room Air 01/26/17 09:00 94/62 01/26/17 08:00 97.3 89 20 94/62 99 Room Air 01/26/17 05:17 97.4 01/26/17 04:22 97.4 74 18 120/65 99 Room Air 01/26/17 00:00 97.2 80 20 114/70 99 Room Air 01/25/17 20:00 97.5 84 20 111/80 95 Room Air 01/25/17 16:00 98.2 82 20 103/59 100 Room Air Height (Feet): 6 Height (Inches): 1.00 Weight (Pounds): 430 Microbiology Date/Time Source Procedure Growth Status 01/25/17 03:20 Leg Left Gram Stain - Final Resulted 01/25/17 03:20 Wound Culture - Preliminary Staphylococcus Aureus Resulted Laboratory Tests Test 01/26/17 06:15 01/26/17 08:00 White Blood Count 9.3 K/UL (4.8-10.8) Red Blood Count 4.53 M/UL (4.20-5.40) Hemoglobin 11.8 G/DL (12.0-16.0) L Hematocrit 37.7 % (37.0-47.0) Mean Corpuscular Volume 83 FL (80-99) Mean Corpuscular Hemoglobin 26.0 PG (27.0-31.0) L Mean Corpuscular Hemoglobin Concent 31.2 G/DL (32.0-36.0) L Red Cell Distribution Width 14.5 % (11.6-14.8) Platelet Count 217 K/UL (150-450) Mean Platelet Volume 6.9 FL (6.5-10.1) Neutrophils (%) (Auto) 77.2 % (45.0-75.0) H Lymphocytes (%) (Auto) 13.3 % (20.0-45.0) L Monocytes (%) (Auto) 6.9 % (1.0-10.0) Eosinophils (%) (Auto) 1.3 % (0.0-3.0) Basophils (%) (Auto) 1.2 % (0.0-2.0) Differential Total Cells Counted 100 Neutrophils % (Manual) 80 % (45-75) H Lymphocytes % (Manual) 12 % (20-45) L Monocytes % (Manual) 6 % (1-10) Eosinophils % (Manual) 1 % (0-3) Basophils % (Manual) 1 % (0-2) Band Neutrophils 0 % (0-8) Platelet Estimate Adequate Platelet Morphology Normal Hypochromasia 1+ Prothrombin Time 10.2 SEC (9.30-11.50) Prothromb Time International Ratio 1.0 (0.9-1.1) Activated Partial Thromboplast Time 24 SEC (23-33) Sodium Level 135 mEQ/L (135-145) Potassium Level 3.6 mEQ/L (3.4-4.9) Chloride Level 95 mEQ/L (98-107) L Carbon Dioxide Level 31 mEQ/L (20-30) H Anion Gap 9 (5-15) Blood Urea Nitrogen 13 mg/dL (7-23) Creatinine 0.7 mg/dL (0.5-0.9) Estimat Glomerular Filtration Rate > 60 mL/min (>60) Glucose Level 101 mg/dL (74-106) Calcium Level 8.8 mg/dL (8.6-10.2) Iron Level 45 ug/dL (37-145) Total Iron Binding Capacity 296 ug/dL (250-400) Percent Iron Saturation 15 % (15-50) Unsaturated Iron Binding 251 ug/dL (112-346) Lactate Dehydrogenase 202 U/L (135-230) Carcinoembryonic Antigen 0.8 ng/mL Vitamin B12 Level 426 pg/mL (211-946) Erythrocyte Sedimentation Rate 56 MM/HR (0-30) H Reticulocyte Count 0.7 % (0.0-2.0) Folate Pending Current Medications Medications (Trade) Dose Ordered Sig/Key Route PRN Reason Start Time Stop Time Status Last Admin Dose Admin Acetaminophen/ Codeine Phosphate (Tylenol #3) 1 tab Q4H PRN ORAL For Pain MILD-MODERATE 01/25/17 05:30 02/01/17 05:29 Acetaminophen/ Codeine Phosphate (Tylenol #3) 2 tab Q6H PRN ORAL For Pain SEVERE PAIN 01/25/17 05:30 02/01/17 05:29 Apixaban (Eliquis) 5 mg BID ORAL 01/25/17 21:00 02/24/17 20:59 01/26/17 09:22 Benazepril HCl (Lotensin) 20 mg DAILY ORAL 01/25/17 09:00 02/24/17 08:59 01/25/17 09:34 Cefepime HCl 2 gm/ Dextrose 110 ml @ 220 mls/hr Q8H IVPB 01/25/17 10:00 02/01/17 09:59 01/26/17 09:23 Chlorhexidine Gluconate (Priti-Hex 2%) 1 applic DAILY TOPIC 01/26/17 10:00 02/25/17 09:59 Diphenhydramine HCl (Benadryl) 25 mg Q4H PRN IVP ALLERGIC REACTION 01/26/17 01:30 02/25/17 01:29 01/26/17 01:43 Docusate Sodium (Colace) 100 mg TWICE A DAY ORAL 01/25/17 09:00 02/24/17 08:59 01/26/17 09:18 Furosemide (Lasix) 20 mg DAILY ORAL 01/25/17 09:00 02/24/17 08:59 01/26/17 09:17 Hydrochlorothiazide (Hydrodiuril) 25 mg DAILY ORAL 01/25/17 09:00 02/24/17 08:59 01/25/17 09:33 Hydromorphone HCl (Dilaudid) 1 mg Q4H PRN IVP Severe Pain/Unable to take ora 01/26/17 13:15 02/01/17 05:59 Ondansetron HCl (Zofran) 4 mg Q6H PRN IVP Nausea & Vomiting 01/25/17 01:15 02/24/17 01:14 01/25/17 01:55 Patient Own Medication (Patient's Own Med) 1 ea DAILY ORAL 01/25/17 15:00 02/24/17 14:59 01/26/17 09:23 Vancomycin HCl (Vanco rx to dose) 1 ea DAILY PRN MISC Per rx protocol 01/25/17 06:15 02/24/17 06:14 Vancomycin HCl/ Dextrose 250 ml @ 166.667 mls/hr Q8H IVPB 01/25/17 20:00 01/30/17 19:59 01/26/17 13:27 ASTER HACKETT Jan 26, 2017 13:59
--- NOTE | 2017-01-26 15:00 | Pulmonology Progress Note ---
Assessment/Plan Problems: (1) Cellulitis, leg (2) HTN (hypertension) (3) Morbid obesity (4) Gout Assessment/Plan got a PICC line continue abx check cultures dc planning in progress Subjective ROS Limited/Unobtainable: No Constitutional: Reports: no symptoms HEENT: Repors: no symptoms Allergies: Coded Allergies: SULFA (SULFONAMIDE ANTIBIOTICS) (Unverified Allergy, Unknown, 05/02/15) allergy history per Dr. Jones Objective Last 24 Hour Vital Signs Date Time Temp Pulse Resp B/P (MAP) Pulse Ox O2 Delivery O2 Flow Rate FiO2 01/26/17 12:00 97.3 60 20 118/67 100 Room Air 01/26/17 09:00 94/62 01/26/17 08:00 97.3 89 20 94/62 99 Room Air 01/26/17 05:17 97.4 01/26/17 04:22 97.4 74 18 120/65 99 Room Air 01/26/17 00:00 97.2 80 20 114/70 99 Room Air 01/25/17 20:00 97.5 84 20 111/80 95 Room Air 01/25/17 16:00 98.2 82 20 103/59 100 Room Air General Appearance: WD/WN HEENT: normocephalic, atraumatic Respiratory/Chest: chest wall non-tender, lungs clear Breasts: no masses Cardiovascular: normal peripheral pulses, normal rate Abdomen: normal bowel sounds, soft, non tender Genitourinary: normal external genitalia Extremities: no cyanosis Skin: no rash Microbiology Date/Time Source Procedure Growth Status 01/25/17 03:20 Leg Left Gram Stain - Final Resulted 01/25/17 03:20 Wound Culture - Preliminary Staphylococcus Aureus Resulted Laboratory Tests 01/26/17 06:15: White Blood Count 9.3, Red Blood Count 4.53, Hemoglobin 11.8L, Hematocrit 37.7, Mean Corpuscular Volume 83, Mean Corpuscular Hemoglobin 26.0L, Mean Corpuscular Hemoglobin Concent 31.2L, Red Cell Distribution Width 14.5, Platelet Count 217, Mean Platelet Volume 6.9, Neutrophils (%) (Auto) 77.2H, Lymphocytes (%) (Auto) 13.3L, Monocytes (%) (Auto) 6.9, Eosinophils (%) (Auto) 1.3, Basophils (%) (Auto ) 1.2, Differential Total Cells Counted 100, Neutrophils % (Manual) 80H, Lymphocytes % (Manual) 12L, Monocytes % (Manual) 6, Eosinophils % (Manual) 1, Basophils % (Manual) 1, Band Neutrophils 0, Platelet Estimate Adequate, Platelet Morphology Normal, Hypochromasia 1+, Prothrombin Time 10.2, Prothromb Time International Ratio 1.0, Activated Partial Thromboplast Time 24, Sodium Level 135, Potassium Level 3.6, Chloride Level 95L, Carbon Dioxide Level 31H, Anion Gap 9, Blood Urea Nitrogen 13, Creatinine 0.7, Estimat Glomerular Filtration Rate > 60, Glucose Level 101, Calcium Level 8.8, Iron Level 45, Total Iron Binding Capacity 296, Percent Iron Saturation 15, Unsaturated Iron Binding 251, Lactate Dehydrogenase 202, Carcinoembryonic Antigen 0.8, Vitamin B12 Level 426 01/26/17 08:00: Erythrocyte Sedimentation Rate 56H, Reticulocyte Count 0.7, Folate [Pending] Current Medications Medications (Trade) Dose Ordered Sig/Key Route PRN Reason Start Time Stop Time Status Last Admin Dose Admin Acetaminophen/ Codeine Phosphate (Tylenol #3) 1 tab Q4H PRN ORAL For Pain MILD-MODERATE 01/25/17 05:30 02/01/17 05:29 Acetaminophen/ Codeine Phosphate (Tylenol #3) 2 tab Q6H PRN ORAL For Pain SEVERE PAIN 01/25/17 05:30 02/01/17 05:29 Apixaban (Eliquis) 5 mg BID ORAL 01/25/17 21:00 02/24/17 20:59 01/26/17 09:22 Benazepril HCl (Lotensin) 20 mg DAILY ORAL 01/25/17 09:00 02/24/17 08:59 01/25/17 09:34 Cefepime HCl 2 gm/ Dextrose 110 ml @ 220 mls/hr Q8H IVPB 01/25/17 10:00 02/01/17 09:59 01/26/17 09:23 Chlorhexidine Gluconate (Priti-Hex 2%) 1 applic DAILY TOPIC 01/26/17 10:00 02/25/17 09:59 Diphenhydramine HCl (Benadryl) 25 mg Q4H PRN IVP ALLERGIC REACTION 01/26/17 01:30 02/25/17 01:29 01/26/17 01:43 Docusate Sodium (Colace) 100 mg TWICE A DAY ORAL 01/25/17 09:00 02/24/17 08:59 01/26/17 09:18 Furosemide (Lasix) 20 mg DAILY ORAL 01/25/17 09:00 02/24/17 08:59 01/26/17 09:17 Hydrochlorothiazide (Hydrodiuril) 25 mg DAILY ORAL 01/25/17 09:00 02/24/17 08:59 01/25/17 09:33 Hydromorphone HCl (Dilaudid) 1 mg Q4H PRN IVP Severe Pain/Unable to take ora 01/26/17 13:15 02/01/17 05:59 Ondansetron HCl (Zofran) 4 mg Q6H PRN IVP Nausea & Vomiting 01/25/17 01:15 02/24/17 01:14 01/25/17 01:55 Patient Own Medication (Patient's Own Med) 1 ea DAILY ORAL 01/25/17 15:00 02/24/17 14:59 01/26/17 09:23 Vancomycin HCl (Vanco rx to dose) 1 ea DAILY PRN MISC Per rx protocol 01/25/17 06:15 02/24/17 06:14 Vancomycin HCl/ Dextrose 250 ml @ 166.667 mls/hr Q8H IVPB 01/25/17 20:00 01/30/17 19:59 01/26/17 13:27 VIKTORIYA CONNOR Jan 26, 2017 15:00
[2017-01-26] MEDS: Hydromorphone 0.5mg/0.5ml inj IVP PRN ×2 (16:46→22:25)
[2017-01-26] MEDS ORDERED: NS 550ML IV ONE (17:12)
--- NOTE | 2017-01-26 17:58 | Internal Med Progress Note ---
Subjective Date of Service: Jan 26, 2017 Physician Name Jo Schmid Attending Physician Jo Schmid Current Medications Medications (Trade) Dose Ordered Sig/Key Route PRN Reason Start Time Stop Time Status Last Admin Dose Admin Acetaminophen/ Codeine Phosphate (Tylenol #3) 1 tab Q4H PRN ORAL For Pain MILD-MODERATE 01/25/17 05:30 02/01/17 05:29 Acetaminophen/ Codeine Phosphate (Tylenol #3) 2 tab Q6H PRN ORAL For Pain SEVERE PAIN 01/25/17 05:30 02/01/17 05:29 Apixaban (Eliquis) 5 mg BID ORAL 01/25/17 21:00 02/24/17 20:59 01/26/17 09:22 Benazepril HCl (Lotensin) 20 mg DAILY ORAL 01/25/17 09:00 02/24/17 08:59 01/25/17 09:34 Cefepime HCl 2 gm/ Dextrose 110 ml @ 220 mls/hr Q8H IVPB 01/25/17 10:00 02/01/17 09:59 01/26/17 09:23 Chlorhexidine Gluconate (Priti-Hex 2%) 1 applic DAILY TOPIC 01/26/17 10:00 02/25/17 09:59 Diphenhydramine HCl (Benadryl) 25 mg Q4H PRN IVP ALLERGIC REACTION 01/26/17 01:30 02/25/17 01:29 01/26/17 01:43 Docusate Sodium (Colace) 100 mg TWICE A DAY ORAL 01/25/17 09:00 02/24/17 08:59 01/26/17 09:18 Furosemide (Lasix) 20 mg DAILY ORAL 01/25/17 09:00 02/24/17 08:59 01/26/17 09:17 Hydrochlorothiazide (Hydrodiuril) 25 mg DAILY ORAL 01/25/17 09:00 02/24/17 08:59 01/25/17 09:33 Hydromorphone HCl (Dilaudid) 1 mg Q4H PRN IVP Severe Pain/Unable to take ora 01/26/17 13:15 02/01/17 05:59 01/26/17 16:46 Ondansetron HCl (Zofran) 4 mg Q6H PRN IVP Nausea & Vomiting 01/25/17 01:15 02/24/17 01:14 01/25/17 01:55 Patient Own Medication (Patient's Own Med) 1 ea DAILY ORAL 01/25/17 15:00 02/24/17 14:59 01/26/17 09:23 Vancomycin HCl (Vanco rx to dose) 1 ea DAILY PRN MISC Per rx protocol 01/25/17 06:15 02/24/17 06:14 Vancomycin HCl/ Dextrose 250 ml @ 166.667 mls/hr Q8H IVPB 01/25/17 20:00 01/30/17 19:59 01/26/17 13:27 Allergies: Coded Allergies: SULFA (SULFONAMIDE ANTIBIOTICS) (Unverified Allergy, Unknown, 05/02/15) allergy history per Dr. Robert BAUER Limited/Unobtainable: No Constitutional: Reports: no symptoms HEENT: Reports: no symptoms Cardiovascular: Reports: no symptoms Respiratory: Reports: no symptoms Gastrointestinal/Abdominal: Reports: no symptoms Genitourinary: Reports: no symptoms Neurologic/Psychiatric: Reports: no symptoms Subjective 56 YO F admitted with Cellulitis left leg. Objective Last Vital Signs Date Time Temp Pulse Resp B/P (MAP) Pulse Ox O2 Delivery O2 Flow Rate FiO2 01/26/17 16:00 97.5 79 20 113/72 100 Room Air General Appearance: WD/WN, no apparent distress, alert, obese EENT: PERRL/EOMI, normal ENT inspection Neck: non-tender, normal alignment, supple Cardiovascular: normal peripheral pulses, normal rate, regular rhythm, no gallop/murmur, no JVD Respiratory/Chest: chest wall non-tender, lungs clear, normal breath sounds, no respiratory distress, no accessory muscle use Abdomen: normal bowel sounds, non tender, soft, no organomegaly, no mass Extremities: normal range of motion 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, no motor/sensory deficits Skin: warm/dry, other - erythema left calf Laboratory Tests Test 01/26/17 06:15 01/26/17 08:00 White Blood Count 9.3 K/UL (4.8-10.8) Red Blood Count 4.53 M/UL (4.20-5.40) Hemoglobin 11.8 G/DL (12.0-16.0) L Hematocrit 37.7 % (37.0-47.0) Mean Corpuscular Volume 83 FL (80-99) Mean Corpuscular Hemoglobin 26.0 PG (27.0-31.0) L Mean Corpuscular Hemoglobin Concent 31.2 G/DL (32.0-36.0) L Red Cell Distribution Width 14.5 % (11.6-14.8) Platelet Count 217 K/UL (150-450) Mean Platelet Volume 6.9 FL (6.5-10.1) Neutrophils (%) (Auto) 77.2 % (45.0-75.0) H Lymphocytes (%) (Auto) 13.3 % (20.0-45.0) L Monocytes (%) (Auto) 6.9 % (1.0-10.0) Eosinophils (%) (Auto) 1.3 % (0.0-3.0) Basophils (%) (Auto) 1.2 % (0.0-2.0) Differential Total Cells Counted 100 Neutrophils % (Manual) 80 % (45-75) H Lymphocytes % (Manual) 12 % (20-45) L Monocytes % (Manual) 6 % (1-10) Eosinophils % (Manual) 1 % (0-3) Basophils % (Manual) 1 % (0-2) Band Neutrophils 0 % (0-8) Platelet Estimate Adequate Platelet Morphology Normal Hypochromasia 1+ Prothrombin Time 10.2 SEC (9.30-11.50) Prothromb Time International Ratio 1.0 (0.9-1.1) Activated Partial Thromboplast Time 24 SEC (23-33) Sodium Level 135 mEQ/L (135-145) Potassium Level 3.6 mEQ/L (3.4-4.9) Chloride Level 95 mEQ/L (98-107) L Carbon Dioxide Level 31 mEQ/L (20-30) H Anion Gap 9 (5-15) Blood Urea Nitrogen 13 mg/dL (7-23) Creatinine 0.7 mg/dL (0.5-0.9) Estimat Glomerular Filtration Rate > 60 mL/min (>60) Glucose Level 101 mg/dL (74-106) Calcium Level 8.8 mg/dL (8.6-10.2) Iron Level 45 ug/dL (37-145) Total Iron Binding Capacity 296 ug/dL (250-400) Percent Iron Saturation 15 % (15-50) Unsaturated Iron Binding 251 ug/dL (112-346) Lactate Dehydrogenase 202 U/L (135-230) Carcinoembryonic Antigen 0.8 ng/mL Vitamin B12 Level 426 pg/mL (211-946) Erythrocyte Sedimentation Rate 56 MM/HR (0-30) H Reticulocyte Count 0.7 % (0.0-2.0) Folate Pending Microbiology Date/Time Source Procedure Growth Status 01/25/17 03:20 Leg Left Gram Stain - Final Resulted 01/25/17 03:20 Wound Culture - Preliminary Staphylococcus Aureus Resulted Assessment/Plan Problem List: (1) Left leg cellulitis Assessment & Plan: Continue cefepime and vanco. See ID note. (2) HTN (hypertension) Assessment & Plan: Cont benazepril and HCTZ (3) Morbid obesity (4) DVT, bilateral lower limbs Status: not improved JO SCHMID Jan 26, 2017 17:58
[2017-01-27] MEDS: Cefepime HCl 2 GM in D5W 110 ML IVPB SCH ×3 (01:18→19:03)
[2017-01-27 04:00] VITALS: BP 119/70
[2017-01-27] MEDS: Vancomycin 1.5 GM/D5W 250ML IVPB SCH ×2 (05:00→17:57)
[2017-01-27 06:48] LABS: BASOPHILS % (AUTO) 0.6 % (0.0-2.0); EOSINOPHILS % (AUTO) 2.2 % (0.0-3.0); LYMPHOCYTES % (AUTO) 16.3 % (20.0-45.0); MEAN CORPUSCULAR HEMOGLOBIN 25.5 PG (27.0-31.0); MEAN CORPUSCULAR HGB CONC 30.7 G/DL (32.0-36.0); MEAN CORPUSCULAR VOLUME 83 FL (80-99); MEAN PLATELET VOLUME 7.2 FL (6.5-10.1); MONOCYTES % (AUTO) 7.1 % (1.0-10.0); NEUTROPHILS % (AUTO) 73.9 % (45.0-75.0); PLATELET COUNT 264 K/UL (150-450); RED BLOOD COUNT 4.16 M/UL (4.20-5.40); RED CELL DISTRIBUTION WIDTH 14.7 % (11.6-14.8); WHITE BLOOD COUNT 10.8 K/UL (4.8-10.8)
[2017-01-27 07:13] LABS: ANION GAP 10 (5-15); CALCIUM 8.6 mg/dL (8.6-10.2); CARBON DIOXIDE 31 mEQ/L (20-30); CHLORIDE 97 mEQ/L (98-107); CREATININE 0.8 mg/dL (0.5-0.9); GLOMERULAR FILTRATION RATE > 60 mL/min (>60); HEMOLYSIS 4; POTASSIUM 3.9 mEQ/L (3.4-4.9); SODIUM 138 mEQ/L (135-145)
[2017-01-27 07:58] LABS: OTHERS PATHOLOGIST COMMENT
[2017-01-27 08:00] VITALS: BP 116/70
[2017-01-27] MEDS: Benazepril 10mg tab ORAL SCH (09:00)
[2017-01-27] MEDS: Hydromorphone 0.5mg/0.5ml inj IVP PRN ×2 (09:52→17:58)
[2017-01-27] MEDS: Dyna-Hex 2% Top Sol 8oz TOPIC SCH (09:52)
[2017-01-27] MEDS: Docusate 100mg cap ORAL SCH ×2 (09:54→17:57)
[2017-01-27] MEDS: Eliquis 2.5mg tablet ORAL SCH ×2 (09:54→17:57)
[2017-01-27] MEDS: ULORIC 40 MG ORAL SCH (09:55)
[2017-01-27 12:00] VITALS: BP 128/64
--- NOTE | 2017-01-27 14:19 | Internal Med Progress Note ---
Subjective Date of Service: Jan 27, 2017 Physician Name Jo Schmid Attending Physician Jo Schmid Current Medications Medications (Trade) Dose Ordered Sig/Key Route PRN Reason Start Time Stop Time Status Last Admin Dose Admin Acetaminophen/ Codeine Phosphate (Tylenol #3) 1 tab Q4H PRN ORAL For Pain MILD-MODERATE 01/25/17 05:30 02/01/17 05:29 Acetaminophen/ Codeine Phosphate (Tylenol #3) 2 tab Q6H PRN ORAL For Pain SEVERE PAIN 01/25/17 05:30 02/01/17 05:29 Apixaban (Eliquis) 5 mg BID ORAL 01/25/17 21:00 02/24/17 20:59 01/27/17 09:54 Benazepril HCl (Lotensin) 20 mg DAILY ORAL 01/25/17 09:00 02/24/17 08:59 01/25/17 09:34 Cefepime HCl 2 gm/ Dextrose 110 ml @ 220 mls/hr Q8H IVPB 01/25/17 10:00 02/01/17 09:59 01/27/17 10:00 Chlorhexidine Gluconate (Priti-Hex 2%) 1 applic DAILY TOPIC 01/26/17 10:00 02/25/17 09:59 01/27/17 09:52 Diphenhydramine HCl (Benadryl) 25 mg Q4H PRN IVP ALLERGIC REACTION 01/26/17 01:30 02/25/17 01:29 01/26/17 01:43 Docusate Sodium (Colace) 100 mg TWICE A DAY ORAL 01/25/17 09:00 02/24/17 08:59 01/27/17 09:54 Furosemide (Lasix) 20 mg DAILY ORAL 01/25/17 09:00 02/24/17 08:59 01/27/17 09:52 Hydrochlorothiazide (Hydrodiuril) 25 mg DAILY ORAL 01/25/17 09:00 02/24/17 08:59 01/25/17 09:33 Hydromorphone HCl (Dilaudid) 1 mg Q4H PRN IVP Severe Pain/Unable to take ora 01/26/17 13:15 02/01/17 05:59 01/27/17 09:52 Ondansetron HCl (Zofran) 4 mg Q6H PRN IVP Nausea & Vomiting 01/25/17 01:15 02/24/17 01:14 01/25/17 01:55 Patient Own Medication (Patient's Own Med) 1 ea DAILY ORAL 01/25/17 15:00 02/24/17 14:59 01/27/17 09:55 Vancomycin HCl (Vanco rx to dose) 1 ea DAILY PRN MISC Per rx protocol 01/25/17 06:15 02/24/17 06:14 Vancomycin HCl/ Dextrose 250 ml @ 125 mls/hr Q12HR@0500,1700 IVPB 01/27/17 05:00 02/01/17 04:59 01/27/17 05:00 Allergies: Coded Allergies: SULFA (SULFONAMIDE ANTIBIOTICS) (Unverified Allergy, Unknown, 05/02/15) allergy history per Dr. Robert BAUER Limited/Unobtainable: No Constitutional: Reports: no symptoms HEENT: Reports: no symptoms Cardiovascular: Reports: no symptoms Respiratory: Reports: no symptoms Gastrointestinal/Abdominal: Reports: no symptoms Genitourinary: Reports: no symptoms Neurologic/Psychiatric: Reports: no symptoms Subjective 56 YO F admitted with Cellulitis left leg. Objective Last Vital Signs Date Time Temp Pulse Resp B/P (MAP) Pulse Ox O2 Delivery O2 Flow Rate FiO2 01/27/17 09:00 116/70 01/27/17 08:00 98.3 93 18 97 Room Air Laboratory Tests Test 01/26/17 18:50 01/26/17 19:17 01/27/17 05:00 Stool Occult Blood Negative (NEGATIVE) Vancomycin Level Trough 22.9 ug/mL (5.0-12.0) H White Blood Count 10.8 K/UL (4.8-10.8) Red Blood Count 4.16 M/UL (4.20-5.40) L Hemoglobin 10.6 G/DL (12.0-16.0) L Hematocrit 34.5 % (37.0-47.0) L Mean Corpuscular Volume 83 FL (80-99) Mean Corpuscular Hemoglobin 25.5 PG (27.0-31.0) L Mean Corpuscular Hemoglobin Concent 30.7 G/DL (32.0-36.0) L Red Cell Distribution Width 14.7 % (11.6-14.8) Platelet Count 264 K/UL (150-450) Mean Platelet Volume 7.2 FL (6.5-10.1) Neutrophils (%) (Auto) 73.9 % (45.0-75.0) Lymphocytes (%) (Auto) 16.3 % (20.0-45.0) L Monocytes (%) (Auto) 7.1 % (1.0-10.0) Eosinophils (%) (Auto) 2.2 % (0.0-3.0) Basophils (%) (Auto) 0.6 % (0.0-2.0) Sodium Level 138 mEQ/L (135-145) Potassium Level 3.9 mEQ/L (3.4-4.9) Chloride Level 97 mEQ/L (98-107) L Carbon Dioxide Level 31 mEQ/L (20-30) H Anion Gap 10 (5-15) Blood Urea Nitrogen 16 mg/dL (7-23) Creatinine 0.8 mg/dL (0.5-0.9) Estimat Glomerular Filtration Rate > 60 mL/min (>60) Glucose Level 114 mg/dL (74-106) H Calcium Level 8.6 mg/dL (8.6-10.2) Microbiology Date/Time Source Procedure Growth Status 01/25/17 12:00 Blood Blood Culture - Preliminary NO GROWTH AFTER 24 HOURS Resulted 01/25/17 11:45 Blood Blood Culture - Preliminary NO GROWTH AFTER 24 HOURS Resulted 01/25/17 04:30 Nasal Nares MRSA Culture - Final Staphylococcus Aureus - Mrsa Complete 01/25/17 04:30 Rectum VRE Culture - Final Enterococcus Faecalis - Vre Complete 01/25/17 03:20 Leg Left Gram Stain - Final Complete 01/25/17 03:20 Wound Culture - Final Staphylococcus Aureus - Mrsa Complete Objective General Appearance: WD/WN, no apparent distress, alert, obese EENT: PERRL/EOMI, normal ENT inspection Neck: non-tender, normal alignment, supple Cardiovascular: normal peripheral pulses, normal rate, regular rhythm, no gallop/murmur, no JVD Respiratory/Chest: chest wall non-tender, lungs clear, normal breath sounds, no respiratory distress, no accessory muscle use Abdomen: normal bowel sounds, non tender, soft, no organomegaly, no mass Extremities: normal range of motion 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 See ID note. (2) HTN (hypertension) Assessment & Plan: Cont benazepril and HCTZ (3) Morbid obesity (4) DVT, bilateral lower limbs Assessment & Plan: Continue eliquis Status: progressing JO SCHMID Jan 27, 2017 14:19
[2017-01-27 16:11] VITALS: BP 129/71
--- NOTE | 2017-01-27 19:00 | Pulmonology Progress Note ---
Assessment/Plan Problems: (1) Cellulitis, leg (2) HTN (hypertension) (3) Morbid obesity (4) Gout Assessment/Plan got a PICC line continue abx check cultures dc planning in progress Subjective ROS Limited/Unobtainable: No Constitutional: Reports: no symptoms Respiratory: Reports: no symptoms Cardiovascular: Reports: no symptoms Allergies: Coded Allergies: SULFA (SULFONAMIDE ANTIBIOTICS) (Unverified Allergy, Unknown, 05/02/15) allergy history per Dr. Jones Objective Last 24 Hour Vital Signs Date Time Temp Pulse Resp B/P (MAP) Pulse Ox O2 Delivery O2 Flow Rate FiO2 01/27/17 16:11 97.1 76 21 129/71 97 Room Air 01/27/17 12:00 97.7 81 18 128/64 99 Room Air 01/27/17 09:00 116/70 01/27/17 08:00 98.3 93 18 116/70 97 Room Air 01/27/17 04:00 97.7 89 19 119/70 96 Room Air 01/26/17 23:53 98.0 84 20 101/74 94 Room Air 01/26/17 22:55 98.2 01/26/17 20:10 98.2 91 20 120/75 100 Room Air Intake and Output 01/27/17 01/28/17 19:00 07:00 Intake Total 1180 ml Balance 1180 ml Intake Oral 1180 ml # Voids 3 General Appearance: no acute distress HEENT: atraumatic Respiratory/Chest: chest wall non-tender, lungs clear Breasts: no masses Cardiovascular: normal peripheral pulses, no JVD Abdomen: normal bowel sounds, non distended Extremities: no cyanosis, no clubbing 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 Microbiology Date/Time Source Procedure Growth Status 01/25/17 12:00 Blood Blood Culture - Preliminary NO GROWTH AFTER 24 HOURS Resulted 01/25/17 11:45 Blood Blood Culture - Preliminary NO GROWTH AFTER 24 HOURS Resulted 01/25/17 04:30 Nasal Nares MRSA Culture - Final Staphylococcus Aureus - Mrsa Complete 01/25/17 04:30 Rectum VRE Culture - Final Enterococcus Faecalis - Vre Complete 01/25/17 03:20 Leg Left Gram Stain - Final Complete 01/25/17 03:20 Wound Culture - Final Staphylococcus Aureus - Mrsa Complete Laboratory Tests 01/26/17 19:17: Vancomycin Level Trough 22.9H 01/27/17 05:00: White Blood Count 10.8, Red Blood Count 4.16L, Hemoglobin 10.6L, Hematocrit 34.5L, Mean Corpuscular Volume 83, Mean Corpuscular Hemoglobin 25.5L, Mean Corpuscular Hemoglobin Concent 30.7L, Red Cell Distribution Width 14.7, Platelet Count 264, Mean Platelet Volume 7.2, Neutrophils (%) (Auto) 73.9, Lymphocytes (%) (Auto) 16.3L, Monocytes (%) (Auto) 7.1, Eosinophils (%) (Auto) 2.2, Basophils (%) (Auto) 0.6, Sodium Level 138, Potassium Level 3.9, Chloride Level 97L, Carbon Dioxide Level 31H, Anion Gap 10, Blood Urea Nitrogen 16, Creatinine 0.8, Estimat Glomerular Filtration Rate > 60, Glucose Level 114H, Calcium Level 8.6 Current Medications Medications (Trade) Dose Ordered Sig/Key Route PRN Reason Start Time Stop Time Status Last Admin Dose Admin Acetaminophen/ Codeine Phosphate (Tylenol #3) 1 tab Q4H PRN ORAL For Pain MILD-MODERATE 01/25/17 05:30 02/01/17 05:29 Acetaminophen/ Codeine Phosphate (Tylenol #3) 2 tab Q6H PRN ORAL For Pain SEVERE PAIN 01/25/17 05:30 02/01/17 05:29 Apixaban (Eliquis) 5 mg BID ORAL 01/25/17 21:00 02/24/17 20:59 01/27/17 17:57 Benazepril HCl (Lotensin) 20 mg DAILY ORAL 01/25/17 09:00 02/24/17 08:59 01/25/17 09:34 Cefepime HCl 2 gm/ Dextrose 110 ml @ 220 mls/hr Q8H IVPB 01/25/17 10:00 02/01/17 09:59 01/27/17 10:00 Chlorhexidine Gluconate (Priti-Hex 2%) 1 applic DAILY TOPIC 01/26/17 10:00 02/25/17 09:59 01/27/17 09:52 Diphenhydramine HCl (Benadryl) 25 mg Q4H PRN IVP ALLERGIC REACTION 01/26/17 01:30 02/25/17 01:29 01/26/17 01:43 Docusate Sodium (Colace) 100 mg TWICE A DAY ORAL 01/25/17 09:00 02/24/17 08:59 01/27/17 17:57 Furosemide (Lasix) 20 mg DAILY ORAL 01/25/17 09:00 02/24/17 08:59 01/27/17 09:52 Hydrochlorothiazide (Hydrodiuril) 25 mg DAILY ORAL 01/25/17 09:00 02/24/17 08:59 01/25/17 09:33 Hydromorphone HCl (Dilaudid) 1 mg Q4H PRN IVP Severe Pain/Unable to take ora 01/26/17 13:15 02/01/17 05:59 01/27/17 17:58 Ondansetron HCl (Zofran) 4 mg Q6H PRN IVP Nausea & Vomiting 01/25/17 01:15 02/24/17 01:14 01/25/17 01:55 Patient Own Medication (Patient's Own Med) 1 ea DAILY ORAL 01/25/17 15:00 02/24/17 14:59 01/27/17 09:55 Vancomycin HCl (Vanco rx to dose) 1 ea DAILY PRN MISC Per rx protocol 01/25/17 06:15 02/24/17 06:14 Vancomycin HCl/ Dextrose 250 ml @ 125 mls/hr Q12HR@0500,1700 IVPB 01/27/17 05:00 02/01/17 04:59 01/27/17 17:57 VIKTORIYA CONNOR Jan 27, 2017 19:00
[2017-01-27 20:00] VITALS: BP_SYST 125; BP_DIAS 70; BP_DIAS 80
[2017-01-28] VITALS: BP 92/54
[2017-01-28] MEDS: Hydromorphone 0.5mg/0.5ml inj IVP PRN ×4 (01:20→23:14)
[2017-01-28] MEDS: Cefepime HCl 2 GM in D5W 110 ML IVPB SCH ×2 (01:21→09:32)
[2017-01-28 04:00] VITALS: BP 101/58
[2017-01-28] MEDS: Vancomycin 1.5 GM/D5W 250ML IVPB SCH ×2 (04:33→16:28)
[2017-01-28 07:46] LABS: BASOPHILS % (AUTO) 0.8 % (0.0-2.0); EOSINOPHILS % (AUTO) 2.5 % (0.0-3.0); MEAN CORPUSCULAR HEMOGLOBIN 25.5 PG (27.0-31.0); MEAN CORPUSCULAR HGB CONC 30.6 G/DL (32.0-36.0); MEAN CORPUSCULAR VOLUME 83 FL (80-99); MEAN PLATELET VOLUME 7.1 FL (6.5-10.1); MONOCYTES % (AUTO) 6.5 % (1.0-10.0); NEUTROPHILS % (AUTO) 73.2 % (45.0-75.0); PLATELET COUNT 223 K/UL (150-450); RED CELL DISTRIBUTION WIDTH 14.4 % (11.6-14.8); WHITE BLOOD COUNT 11.2 K/UL (4.8-10.8)
[2017-01-28 08:15] VITALS: BP 146/74
[2017-01-28 08:18] LABS: ANION GAP 8 (5-15); CALCIUM 8.8 mg/dL (8.6-10.2); CARBON DIOXIDE 31 mEQ/L (20-30); CHLORIDE 99 mEQ/L (98-107); CREATININE 0.6 mg/dL (0.5-0.9); GLOMERULAR FILTRATION RATE > 60 mL/min (>60); HEMOLYSIS 0; POTASSIUM 4.1 mEQ/L (3.4-4.9); SODIUM 138 mEQ/L (135-145)
[2017-01-28] MEDS: Dyna-Hex 2% Top Sol 8oz TOPIC SCH (09:32)
[2017-01-28] MEDS: Eliquis 2.5mg tablet ORAL SCH ×2 (09:33→18:06)
[2017-01-28] MEDS: Docusate 100mg cap ORAL SCH ×2 (09:33→18:05)
[2017-01-28] MEDS: Benazepril 10mg tab ORAL SCH (09:35)
[2017-01-28] MEDS: ULORIC 40 MG ORAL SCH (09:52)
[2017-01-28] MEDS ORDERED: NS 275ml ONE (10:06)
[2017-01-28 12:00] VITALS: BP 90/51
--- NOTE | 2017-01-28 13:32 | Internal Med Progress Note ---
Subjective Date of Service: Jan 28, 2017 Physician Name Jo Schmid Attending Physician Jo Schmid Current Medications Medications (Trade) Dose Ordered Sig/Key Route PRN Reason Start Time Stop Time Status Last Admin Dose Admin Acetaminophen/ Codeine Phosphate (Tylenol #3) 1 tab Q4H PRN ORAL For Pain MILD-MODERATE 01/25/17 05:30 02/01/17 05:29 Acetaminophen/ Codeine Phosphate (Tylenol #3) 2 tab Q6H PRN ORAL For Pain SEVERE PAIN 01/25/17 05:30 02/01/17 05:29 Apixaban (Eliquis) 5 mg BID ORAL 01/25/17 21:00 02/24/17 20:59 01/28/17 09:33 Benazepril HCl (Lotensin) 20 mg DAILY ORAL 01/25/17 09:00 02/24/17 08:59 01/28/17 09:35 Cefepime HCl 2 gm/ Dextrose 110 ml @ 220 mls/hr Q8H IVPB 01/25/17 10:00 02/01/17 09:59 01/28/17 09:32 Chlorhexidine Gluconate (Priti-Hex 2%) 1 applic DAILY TOPIC 01/26/17 10:00 02/25/17 09:59 01/28/17 09:32 Diphenhydramine HCl (Benadryl) 25 mg Q4H PRN IVP ALLERGIC REACTION 01/26/17 01:30 02/25/17 01:29 01/26/17 01:43 Docusate Sodium (Colace) 100 mg TWICE A DAY ORAL 01/25/17 09:00 02/24/17 08:59 01/28/17 09:33 Furosemide (Lasix) 20 mg DAILY ORAL 01/25/17 09:00 02/24/17 08:59 01/28/17 09:34 Hydrochlorothiazide (Hydrodiuril) 25 mg DAILY ORAL 01/25/17 09:00 02/24/17 08:59 01/28/17 09:34 Hydromorphone HCl (Dilaudid) 1 mg Q4H PRN IVP Severe Pain/Unable to take ora 01/26/17 13:15 02/01/17 05:59 01/28/17 08:14 Ondansetron HCl (Zofran) 4 mg Q6H PRN IVP Nausea & Vomiting 01/25/17 01:15 02/24/17 01:14 01/25/17 01:55 Patient Own Medication (Patient's Own Med) 1 ea DAILY ORAL 01/25/17 15:00 02/24/17 14:59 01/28/17 09:52 Vancomycin HCl (Vanco rx to dose) 1 ea DAILY PRN MISC Per rx protocol 01/25/17 06:15 02/24/17 06:14 Vancomycin HCl/ Dextrose 250 ml @ 125 mls/hr Q12HR@0500,1700 IVPB 01/27/17 05:00 02/01/17 04:59 01/28/17 04:33 Allergies: Coded Allergies: SULFA (SULFONAMIDE ANTIBIOTICS) (Unverified Allergy, Unknown, 05/02/15) allergy history per Dr. Robert BAUER Limited/Unobtainable: No Constitutional: Reports: no symptoms HEENT: Reports: no symptoms Cardiovascular: Reports: no symptoms Respiratory: Reports: no symptoms Gastrointestinal/Abdominal: Reports: no symptoms Neurologic/Psychiatric: Reports: no symptoms Subjective 56 YO F admitted with Cellulitis left leg. Objective Last Vital Signs Date Time Temp Pulse Resp B/P (MAP) Pulse Ox O2 Delivery O2 Flow Rate FiO2 01/28/17 12:00 96.3 80 19 90/51 100 Room Air Laboratory Tests Test 01/28/17 06:36 White Blood Count 11.2 K/UL (4.8-10.8) H Red Blood Count 4.10 M/UL (4.20-5.40) L Hemoglobin 10.5 G/DL (12.0-16.0) L Hematocrit 34.1 % (37.0-47.0) L Mean Corpuscular Volume 83 FL (80-99) Mean Corpuscular Hemoglobin 25.5 PG (27.0-31.0) L Mean Corpuscular Hemoglobin Concent 30.6 G/DL (32.0-36.0) L Red Cell Distribution Width 14.4 % (11.6-14.8) Platelet Count 223 K/UL (150-450) Mean Platelet Volume 7.1 FL (6.5-10.1) Neutrophils (%) (Auto) 73.2 % (45.0-75.0) Lymphocytes (%) (Auto) 17.0 % (20.0-45.0) L Monocytes (%) (Auto) 6.5 % (1.0-10.0) Eosinophils (%) (Auto) 2.5 % (0.0-3.0) Basophils (%) (Auto) 0.8 % (0.0-2.0) Sodium Level 138 mEQ/L (135-145) Potassium Level 4.1 mEQ/L (3.4-4.9) Chloride Level 99 mEQ/L (98-107) Carbon Dioxide Level 31 mEQ/L (20-30) H Anion Gap 8 (5-15) Blood Urea Nitrogen 15 mg/dL (7-23) Creatinine 0.6 mg/dL (0.5-0.9) Estimat Glomerular Filtration Rate > 60 mL/min (>60) Glucose Level 112 mg/dL (74-106) H Calcium Level 8.8 mg/dL (8.6-10.2) Intake and Output 01/28/17 01/29/17 19:00 07:00 Intake Total 240 ml Balance 240 ml Intake Oral 240 ml Objective General Appearance: WD/WN, no apparent distress, alert, obese EENT: PERRL/EOMI, normal ENT inspection Neck: non-tender, normal alignment, supple Cardiovascular: normal peripheral pulses, normal rate, regular rhythm, no gallop/murmur, no JVD Respiratory/Chest: chest wall non-tender, lungs clear, normal breath sounds, no respiratory distress, no accessory muscle use Abdomen: normal bowel sounds, non tender, soft, no organomegaly, no mass Extremities: normal range of motion 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 See ID note. (2) HTN (hypertension) Assessment & Plan: Cont benazepril and HCTZ (3) Morbid obesity (4) DVT, bilateral lower limbs Assessment & Plan: Await venous doppler; Continue eliquis Status: progressing JO SCHMID Jan 28, 2017 13:32
--- NOTE | 2017-01-28 15:19 | Infectious Diseases Prog Note ---
Assessment/Plan Assessment/Plan A) 1) MRSA left leg wound infection/cellulitis, leukocytosis better - clinically wounds stable 2) htn, obesity, dvt, cps, cpm, hx cellulitis and wounds, anemia, asthma, gib , gout 3) allergies - sulfa, fh-nc, sh-negative, 4) mar noted, notes and records noted 5) d/w RN P) 1) vancomycin, discontinue cefepime 2) wound care per protocol 3) orders entered and noted 4) watch labs 5) continue tx per primary 6) vre colonization and isolation Subjective Constitutional: Denies: fever HEENT: Denies: congestion Respiratory: Denies: shortness of breath Cardiovascular: Denies: chest pain Gastrointestinal/Abdominal: Denies: nausea, vomiting, diarrhea Genitourinary: Reports: other - no eaton Psychiatric: Denies: depression Skin: Denies: rash Hematologic: Denies: bleeding Musculoskeletal: Reports: pain, other - + left leg pain Allergies: Coded Allergies: SULFA (SULFONAMIDE ANTIBIOTICS) (Unverified Allergy, Unknown, 05/02/15) allergy history per Dr. Jones Objective Vital Signs Last 24 Hour Vital Signs Date Time Temp Pulse Resp B/P (MAP) Pulse Ox O2 Delivery O2 Flow Rate FiO2 01/28/17 12:00 96.3 80 19 90/51 100 Room Air 01/28/17 09:35 146/74 01/28/17 08:15 97.9 80 21 146/74 97 Room Air 01/28/17 04:00 97.5 87 20 101/58 100 Room Air 01/28/17 00:00 97.9 80 20 92/54 100 Room Air 01/27/17 20:00 97.7 78 20 125/70 100 Room Air 01/27/17 16:11 97.1 76 21 129/71 97 Room Air Height (Feet): 6 Height (Inches): 1.00 Weight (Pounds): 430 General Appearance: no acute distress HEENT: normocephalic, atraumatic, anicteric, mucous membranes moist, PERRL, EOMI, pharynx normal, supple, no JVD Respiratory/Chest: chest wall non-tender, lungs clear, normal breath sounds, no respiratory distress, no accessory muscle use Cardiovascular: normal rate, regular rhythm, no gallop/murmur, no JVD Abdomen: normal bowel sounds, soft, non tender, no organomegaly, non distended Genitourinary: other - no eaton, no cva pain Extremities: no cyanosis, other - left leg swelling Skin: no rash, other - wound - clean, no significant drainage Neurologic/Psychiatric: gum sprayer II-XII grossly normal, alert, 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, responsive Lymphatic: no neck adenopathy Musculoskeletal: no effusion Objective chest x-ray - negative (noted) x-ray - left leg - no fx or osteo (report noted) Microbiology Date/Time Source Procedure Growth Status 01/25/17 12:00 Blood Blood Culture - Preliminary NO GROWTH AFTER 48 HOURS Resulted 01/25/17 04:30 Nasal Nares MRSA Culture - Final Staphylococcus Aureus - Mrsa Complete 01/25/17 04:30 Rectum VRE Culture - Final Enterococcus Faecalis - Vre Complete Laboratory Tests Test 01/28/17 06:36 White Blood Count 11.2 K/UL (4.8-10.8) H Red Blood Count 4.10 M/UL (4.20-5.40) L Hemoglobin 10.5 G/DL (12.0-16.0) L Hematocrit 34.1 % (37.0-47.0) L Mean Corpuscular Volume 83 FL (80-99) Mean Corpuscular Hemoglobin 25.5 PG (27.0-31.0) L Mean Corpuscular Hemoglobin Concent 30.6 G/DL (32.0-36.0) L Red Cell Distribution Width 14.4 % (11.6-14.8) Platelet Count 223 K/UL (150-450) Mean Platelet Volume 7.1 FL (6.5-10.1) Neutrophils (%) (Auto) 73.2 % (45.0-75.0) Lymphocytes (%) (Auto) 17.0 % (20.0-45.0) L Monocytes (%) (Auto) 6.5 % (1.0-10.0) Eosinophils (%) (Auto) 2.5 % (0.0-3.0) Basophils (%) (Auto) 0.8 % (0.0-2.0) Sodium Level 138 mEQ/L (135-145) Potassium Level 4.1 mEQ/L (3.4-4.9) Chloride Level 99 mEQ/L (98-107) Carbon Dioxide Level 31 mEQ/L (20-30) H Anion Gap 8 (5-15) Blood Urea Nitrogen 15 mg/dL (7-23) Creatinine 0.6 mg/dL (0.5-0.9) Estimat Glomerular Filtration Rate > 60 mL/min (>60) Glucose Level 112 mg/dL (74-106) H Calcium Level 8.8 mg/dL (8.6-10.2) Current Medications Medications (Trade) Dose Ordered Sig/Key Route PRN Reason Start Time Stop Time Status Last Admin Dose Admin Acetaminophen/ Codeine Phosphate (Tylenol #3) 1 tab Q4H PRN ORAL For Pain MILD-MODERATE 01/25/17 05:30 02/01/17 05:29 Acetaminophen/ Codeine Phosphate (Tylenol #3) 2 tab Q6H PRN ORAL For Pain SEVERE PAIN 01/25/17 05:30 02/01/17 05:29 Apixaban (Eliquis) 5 mg BID ORAL 01/25/17 21:00 02/24/17 20:59 01/28/17 09:33 Benazepril HCl (Lotensin) 20 mg DAILY ORAL 01/25/17 09:00 02/24/17 08:59 01/28/17 09:35 Chlorhexidine Gluconate (Priti-Hex 2%) 1 applic DAILY TOPIC 01/26/17 10:00 02/25/17 09:59 01/28/17 09:32 Diphenhydramine HCl (Benadryl) 25 mg Q4H PRN IVP ALLERGIC REACTION 01/26/17 01:30 02/25/17 01:29 01/26/17 01:43 Docusate Sodium (Colace) 100 mg TWICE A DAY ORAL 01/25/17 09:00 02/24/17 08:59 01/28/17 09:33 Furosemide (Lasix) 20 mg DAILY ORAL 01/25/17 09:00 02/24/17 08:59 01/28/17 09:34 Hydrochlorothiazide (Hydrodiuril) 25 mg DAILY ORAL 01/25/17 09:00 02/24/17 08:59 01/28/17 09:34 Hydromorphone HCl (Dilaudid) 1 mg Q4H PRN IVP Severe Pain/Unable to take ora 01/26/17 13:15 02/01/17 05:59 01/28/17 08:14 Ondansetron HCl (Zofran) 4 mg Q6H PRN IVP Nausea & Vomiting 01/25/17 01:15 02/24/17 01:14 01/25/17 01:55 Patient Own Medication (Patient's Own Med) 1 ea DAILY ORAL 01/25/17 15:00 02/24/17 14:59 01/28/17 09:52 Vancomycin HCl (Vanco rx to dose) 1 ea DAILY PRN MISC Per rx protocol 01/25/17 06:15 02/24/17 06:14 Vancomycin HCl/ Dextrose 250 ml @ 125 mls/hr Q12HR@0500,1700 IVPB 01/27/17 05:00 02/01/17 04:59 01/28/17 04:33 ASTER HACKETT Jan 28, 2017 15:19
[2017-01-28 15:49] VITALS: BP 114/68
--- NOTE | 2017-01-28 16:01 | Cardiology Report ---
APPROVED REPORT EKG Measurement Heart [id number] NM [id number] Normal sinus rhythm Low voltage QRS Borderline ECG
--- NOTE | 2017-01-28 16:10 | Pulmonology Progress Note ---
Assessment/Plan Problems: (1) Cellulitis, leg (2) HTN (hypertension) (3) Morbid obesity (4) Gout Assessment/Plan improving continue abx check cultures all notes and meds reviewed dc planning Subjective ROS Limited/Unobtainable: No Allergies: Coded Allergies: SULFA (SULFONAMIDE ANTIBIOTICS) (Unverified Allergy, Unknown, 05/02/15) allergy history per Dr. Jones Objective Last 24 Hour Vital Signs Date Time Temp Pulse Resp B/P (MAP) Pulse Ox O2 Delivery O2 Flow Rate FiO2 01/28/17 15:49 97.3 84 18 114/68 98 Room Air 01/28/17 12:00 96.3 80 19 90/51 100 Room Air 01/28/17 09:35 146/74 01/28/17 08:15 97.9 80 21 146/74 97 Room Air 01/28/17 04:00 97.5 87 20 101/58 100 Room Air 01/28/17 00:00 97.9 80 20 92/54 100 Room Air 01/27/17 20:00 97.7 78 20 125/70 100 Room Air 01/27/17 16:11 97.1 76 21 129/71 97 Room Air Intake and Output 01/28/17 01/29/17 19:00 07:00 Intake Total 240 ml Balance 240 ml Intake Oral 240 ml General Appearance: WD/WN HEENT: normocephalic, anicteric Respiratory/Chest: chest wall non-tender, normal breath sounds Cardiovascular: normal peripheral pulses, regular rhythm Abdomen: normal bowel sounds, no organomegaly Extremities: no cyanosis Neurologic/Psychiatric: corrective therapist II-XII grossly normal, abnormal gait, 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 Laboratory Tests 01/28/17 06:36: White Blood Count 11.2H, Red Blood Count 4.10L, Hemoglobin 10.5L, Hematocrit 34.1L, Mean Corpuscular Volume 83, Mean Corpuscular Hemoglobin 25.5L, Mean Corpuscular Hemoglobin Concent 30.6L, Red Cell Distribution Width 14.4, Platelet Count 223, Mean Platelet Volume 7.1, Neutrophils (%) (Auto) 73.2, Lymphocytes (%) (Auto) 17.0L, Monocytes (%) (Auto) 6.5, Eosinophils (%) (Auto) 2.5, Basophils (%) (Auto) 0.8, Sodium Level 138, Potassium Level 4.1, Chloride Level 99, Carbon Dioxide Level 31H, Anion Gap 8, Blood Urea Nitrogen 15, Creatinine 0.6, Estimat Glomerular Filtration Rate > 60, Glucose Level 112H, Calcium Level 8.8 Current Medications Medications (Trade) Dose Ordered Sig/Key Route PRN Reason Start Time Stop Time Status Last Admin Dose Admin Acetaminophen/ Codeine Phosphate (Tylenol #3) 1 tab Q4H PRN ORAL For Pain MILD-MODERATE 01/25/17 05:30 02/01/17 05:29 Acetaminophen/ Codeine Phosphate (Tylenol #3) 2 tab Q6H PRN ORAL For Pain SEVERE PAIN 01/25/17 05:30 02/01/17 05:29 Apixaban (Eliquis) 5 mg BID ORAL 01/25/17 21:00 02/24/17 20:59 01/28/17 09:33 Benazepril HCl (Lotensin) 20 mg DAILY ORAL 01/25/17 09:00 02/24/17 08:59 01/28/17 09:35 Chlorhexidine Gluconate (Priti-Hex 2%) 1 applic DAILY TOPIC 01/26/17 10:00 02/25/17 09:59 01/28/17 09:32 Diphenhydramine HCl (Benadryl) 25 mg Q4H PRN IVP ALLERGIC REACTION 01/26/17 01:30 02/25/17 01:29 01/26/17 01:43 Docusate Sodium (Colace) 100 mg TWICE A DAY ORAL 01/25/17 09:00 02/24/17 08:59 01/28/17 09:33 Furosemide (Lasix) 20 mg DAILY ORAL 01/25/17 09:00 02/24/17 08:59 01/28/17 09:34 Hydrochlorothiazide (Hydrodiuril) 25 mg DAILY ORAL 01/25/17 09:00 02/24/17 08:59 01/28/17 09:34 Hydromorphone HCl (Dilaudid) 1 mg Q4H PRN IVP Severe Pain/Unable to take ora 01/26/17 13:15 02/01/17 05:59 01/28/17 08:14 Ondansetron HCl (Zofran) 4 mg Q6H PRN IVP Nausea & Vomiting 01/25/17 01:15 02/24/17 01:14 01/25/17 01:55 Patient Own Medication (Patient's Own Med) 1 ea DAILY ORAL 01/25/17 15:00 02/24/17 14:59 01/28/17 09:52 Vancomycin HCl (Vanco rx to dose) 1 ea DAILY PRN MISC Per rx protocol 01/25/17 06:15 02/24/17 06:14 Vancomycin HCl/ Dextrose 250 ml @ 125 mls/hr Q12HR@0500,1700 IVPB 01/27/17 05:00 02/01/17 04:59 01/28/17 04:33 VIKTORIYA CONNOR Jan 28, 2017 16:10
[2017-01-28 20:00] VITALS: BP 135/63
[2017-01-29] VITALS (7 sets, daily range): BP systolic 102–149; BP diastolic 53–84
[2017-01-29] MEDS: Hydromorphone 0.5mg/0.5ml inj IVP PRN ×2 (04:16→20:09)
[2017-01-29] MEDS: Vancomycin 1.5 GM/D5W 250ML IVPB SCH ×2 (04:17→17:13)
[2017-01-29 07:10] LABS: ANION GAP 8 (5-15); CALCIUM 10.2 mg/dL (8.6-10.2); CARBON DIOXIDE 31 mEQ/L (20-30); CHLORIDE 97 mEQ/L (98-107); CREATININE 0.6 mg/dL (0.5-0.9); GLOMERULAR FILTRATION RATE > 60 mL/min (>60); HEMOLYSIS 0; SODIUM 136 mEQ/L (135-145)
[2017-01-29 07:23] LABS: BASOPHILS % (AUTO) 0.7 % (0.0-2.0); EOSINOPHILS % (AUTO) 2.8 % (0.0-3.0); LYMPHOCYTES % (AUTO) 16.9 % (20.0-45.0); MEAN CORPUSCULAR HEMOGLOBIN 25.9 PG (27.0-31.0); MEAN CORPUSCULAR HGB CONC 31.1 G/DL (32.0-36.0); MEAN CORPUSCULAR VOLUME 83 FL (80-99); MEAN PLATELET VOLUME 7.1 FL (6.5-10.1); MONOCYTES % (AUTO) 6.2 % (1.0-10.0); NEUTROPHILS % (AUTO) 73.4 % (45.0-75.0); PLATELET COUNT 227 K/UL (150-450); RED BLOOD COUNT 3.91 M/UL (4.20-5.40); RED CELL DISTRIBUTION WIDTH 14.4 % (11.6-14.8); WHITE BLOOD COUNT 12.6 K/UL (4.8-10.8)
[2017-01-29] MEDS: Docusate 100mg cap ORAL SCH ×2 (08:27→19:04)
[2017-01-29] MEDS: Eliquis 2.5mg tablet ORAL SCH ×2 (08:28→19:04)
[2017-01-29] MEDS: ULORIC 40 MG ORAL SCH (08:28)
[2017-01-29] MEDS: Dyna-Hex 2% Top Sol 8oz TOPIC SCH (08:28)
--- NOTE | 2017-01-29 09:15 | Consultation ---
DATE OF CONSULTATION: 01/26/2017 INFECTIOUS DISEASE CONSULTATION CONSULTING PHYSICIAN: Slim Javed M.D. ATTENDING PHYSICIAN: Trever Holguin M.D. Reason For Consultation: Staph aureus, left leg wound infection, and cellulitis of left leg. Chief Complaint: The patient's chief complaint coming in to the hospital is cellulitis of left leg. History Of Present Illness: This is a 56-year-old female with history of multiple medical problems, who has history of recurrent left leg cellulitis. The patient now has an infected wound of the left leg, which now is growing a Staph aureus with secondary cellulitis. An Infectious Disease consultation is requested. Final wound culture is pending at this time. The patient has had increased swelling over the last several days and pain. The patient was started on vancomycin and cefepime. Pending final wound culture. MAR was noted. Orders were noted. Notes were reviewed. Notes and records reviewed. Case was discussed with Dr. Holguin. and RN. Review Of Systems: Constitutional: The patient has generalized weakness and fatigue. No fever, chills, night sweats, or weight loss. Head and Neck: No head pain. No neck pain. Cardiac: No chest pain. No dysphagia or thrush. Gastrointestinal: No nausea, vomiting, or diarrhea. Genitourinary: No dysuria or frequency. Pulmonary: No congestion or rales. No hemoptysis secretions. Skin: No new rash. Neurologic: No seizures. Extremities: She has left leg swelling and pain. Past Medical History: Includes the following, the patient has a past medical history of hypertension, history of obesity. She has a history of recurrent cellulitis of the legs, history of wounds. She has a history of C. diff in the past, looks like history of pain management, history of anemia, history of 01:33 hypertension, obesity, 01:35 no history of diabetes, history of gout, history of DVT. ALLERGIES: Include sulfa drugs. Family History: Noncontributory. Negative for exposure to tuberculosis or cancer. SOCIAL HISTORY: Negative for smoking, alcohol, or drug abuse. Medications: Upon reviewing the MAR, she is on following medications. She is on Dilaudid. She is on chlorhexidine. She is on Benadryl, Eliquis, and vancomycin. She is on cefepime. She is on Colace, Lasix, furosemide, hydrochlorothiazide, benazepril, acetaminophen, and Zofran. PHYSICAL EXAMINATION: Vital Signs: Temperature 97.3, pulse 86, respiratory rate 20, blood pressure 182/67, and saturation 100%. GENERAL: Alert and responsive, in no acute distress. Head And Neck: Oral exam, no thrush. Eye exam, no icterus. Normocephalic. No facial droop. No neck stiffness. Neck is supple. HEART: Regular. No gallop or murmur. ABDOMEN: Soft. Positive bowel sounds. Nontender. No organomegaly. LUNGS: Clear bilaterally. No rhonchi or rales. SKIN: No rash or dermatitis. Extremities: left lower lower extremity with warmth and she has a significant left leg swelling and redness. She has infected wound of the left leg also that has drainage. Peripheral Vascular: No cyanosis or gangrene without phlebitis. The PICC line was placed. GENITOURINARY: No CVA tenderness. No Shah. NEUROLOGIC: Intact. Nonfocal. Laboratory and Diagnostic Data: Laboratory data as follows: On admission, her white count is 13.7, now it is 9.3, and hemoglobin 11.8. Sedimentation rate is 45. Creatinine 0.7. X-rays of the left leg showed no evidence of osteomyelitis. Chest x-ray was negative. Wound culture grew out Staph aureus. Sensitivities are pending. ASSESSMENT AND PLAN: 1. The patient has left leg infected wound secondary to Staphylococcus aureus, secondary to cellulitis. Final wound culture is pending. Continue vancomycin and cefepime. Check final wound culture. Continue wound care protocol. Check followup labs, wound culture, and watch creatinine closely on vancomycin. 2. The patient has history of obesity. 3. Hypertension. 4. The patient has history of cellulitis. 5. History of wounds. 6. Pain management. 7. History of Clostridium difficile. 8. History of deep venous thrombosis. 9. Leukocytosis, which is improved. 10. Allergies to sulfa. 11. MAR was noted. 12. Case was discussed with RN. 13. Family history is noncontributory. 14. Social history is negative. 15. allergies - nkda 16. Wound care protocol. 17. Notes and records were noted. Slim Javed M.D. DR: LOVE JOB#: [id number] CC: CARMELO
[2017-01-29] MEDS: Benazepril 10mg tab ORAL SCH (10:10)
--- NOTE | 2017-01-29 10:26 | Internal Med Progress Note ---
Subjective Date of Service: Jan 29, 2017 Physician Name Jo Schmid Attending Physician Jo Schmid Current Medications Medications (Trade) Dose Ordered Sig/Key Route PRN Reason Start Time Stop Time Status Last Admin Dose Admin Acetaminophen/ Codeine Phosphate (Tylenol #3) 1 tab Q4H PRN ORAL For Pain MILD-MODERATE 01/25/17 05:30 02/01/17 05:29 Acetaminophen/ Codeine Phosphate (Tylenol #3) 2 tab Q6H PRN ORAL For Pain SEVERE PAIN 01/25/17 05:30 02/01/17 05:29 Apixaban (Eliquis) 5 mg BID ORAL 01/25/17 21:00 02/24/17 20:59 01/29/17 08:28 Benazepril HCl (Lotensin) 20 mg DAILY ORAL 01/25/17 09:00 02/24/17 08:59 01/29/17 10:10 Chlorhexidine Gluconate (Priti-Hex 2%) 1 applic DAILY TOPIC 01/26/17 10:00 02/25/17 09:59 01/29/17 08:28 Diphenhydramine HCl (Benadryl) 25 mg Q4H PRN IVP ALLERGIC REACTION 01/26/17 01:30 02/25/17 01:29 01/26/17 01:43 Docusate Sodium (Colace) 100 mg TWICE A DAY ORAL 01/25/17 09:00 02/24/17 08:59 01/29/17 08:27 Furosemide (Lasix) 20 mg DAILY ORAL 01/25/17 09:00 02/24/17 08:59 01/29/17 08:27 Hydrochlorothiazide (Hydrodiuril) 25 mg DAILY ORAL 01/25/17 09:00 02/24/17 08:59 01/29/17 08:27 Hydromorphone HCl (Dilaudid) 1 mg Q4H PRN IVP Severe Pain/Unable to take ora 01/26/17 13:15 02/01/17 05:59 01/29/17 04:16 Ondansetron HCl (Zofran) 4 mg Q6H PRN IVP Nausea & Vomiting 01/25/17 01:15 02/24/17 01:14 01/25/17 01:55 Patient Own Medication (Patient's Own Med) 1 ea DAILY ORAL 01/25/17 15:00 02/24/17 14:59 01/29/17 08:28 Vancomycin HCl (Vanco rx to dose) 1 ea DAILY PRN MISC Per rx protocol 01/25/17 06:15 02/24/17 06:14 Vancomycin HCl/ Dextrose 250 ml @ 125 mls/hr Q12HR@0500,1700 IVPB 01/27/17 05:00 02/01/17 04:59 01/29/17 04:17 Allergies: Coded Allergies: SULFA (SULFONAMIDE ANTIBIOTICS) (Unverified Allergy, Unknown, 05/02/15) allergy history per Dr. Robert BAUER Limited/Unobtainable: No Constitutional: Reports: no symptoms HEENT: Reports: no symptoms Cardiovascular: Reports: no symptoms Respiratory: Reports: no symptoms Gastrointestinal/Abdominal: Reports: no symptoms Genitourinary: Reports: no symptoms Neurologic/Psychiatric: Reports: no symptoms Subjective 56 YO F admitted with Cellulitis left leg. Objective Last Vital Signs Date Time Temp Pulse Resp B/P (MAP) Pulse Ox O2 Delivery O2 Flow Rate FiO2 01/29/17 10:10 126/84 01/29/17 10:04 94 01/29/17 08:00 98.0 20 97 Room Air Laboratory Tests Test 01/29/17 06:20 White Blood Count 12.6 K/UL (4.8-10.8) H Red Blood Count 3.91 M/UL (4.20-5.40) L Hemoglobin 10.1 G/DL (12.0-16.0) L Hematocrit 32.5 % (37.0-47.0) L Mean Corpuscular Volume 83 FL (80-99) Mean Corpuscular Hemoglobin 25.9 PG (27.0-31.0) L Mean Corpuscular Hemoglobin Concent 31.1 G/DL (32.0-36.0) L Red Cell Distribution Width 14.4 % (11.6-14.8) Platelet Count 227 K/UL (150-450) Mean Platelet Volume 7.1 FL (6.5-10.1) Neutrophils (%) (Auto) 73.4 % (45.0-75.0) Lymphocytes (%) (Auto) 16.9 % (20.0-45.0) L Monocytes (%) (Auto) 6.2 % (1.0-10.0) Eosinophils (%) (Auto) 2.8 % (0.0-3.0) Basophils (%) (Auto) 0.7 % (0.0-2.0) Sodium Level 136 mEQ/L (135-145) Potassium Level 4.0 mEQ/L (3.4-4.9) Chloride Level 97 mEQ/L (98-107) L Carbon Dioxide Level 31 mEQ/L (20-30) H Anion Gap 8 (5-15) Blood Urea Nitrogen 14 mg/dL (7-23) Creatinine 0.6 mg/dL (0.5-0.9) Estimat Glomerular Filtration Rate > 60 mL/min (>60) Glucose Level 118 mg/dL (74-106) H Calcium Level 10.2 mg/dL (8.6-10.2) Intake and Output 01/29/17 01/30/17 19:00 07:00 Intake Total 245 ml Balance 245 ml Intake Oral 245 ml # Voids 1 Objective General Appearance: WD/WN, no apparent distress, alert, obese EENT: PERRL/EOMI, normal ENT inspection Neck: non-tender, normal alignment, supple Cardiovascular: normal peripheral pulses, normal rate, regular rhythm, no gallop/murmur, no JVD Respiratory/Chest: chest wall non-tender, lungs clear, normal breath sounds, no respiratory distress, no accessory muscle use Abdomen: normal bowel sounds, non tender, soft, no organomegaly, no mass Extremities: normal range of motion Neurologic: director digital strategy II-XII grossly normal, no motor/sensory deficits Skin: warm/dry, other - erythema left calf Assessment/Plan Problem List: (1) Left leg cellulitis Assessment & Plan: Continue cefepime and vanco. See ID note. (2) HTN (hypertension) Assessment & Plan: Cont benazepril and HCTZ (3) Morbid obesity (4) DVT, bilateral lower limbs Assessment & Plan: Await venous doppler; Continue eliquis Status: stable Assessment/Plan Discharge planning. JO SCHMID Jan 29, 2017 10:26
--- NOTE | 2017-01-29 15:36 | Pulmonology Progress Note ---
Assessment/Plan Problems: (1) Cellulitis, leg (2) HTN (hypertension) (3) Morbid obesity (4) Gout Assessment/Plan improving wbc slightly high f/u by ID continue abx check cultures all notes and meds reviewed dc planning Subjective ROS Limited/Unobtainable: No Constitutional: Reports: no symptoms HEENT: Repors: no symptoms Respiratory: Reports: no symptoms Allergies: Coded Allergies: SULFA (SULFONAMIDE ANTIBIOTICS) (Unverified Allergy, Unknown, 05/02/15) allergy history per Dr. Jones Objective Last 24 Hour Vital Signs Date Time Temp Pulse Resp B/P (MAP) Pulse Ox O2 Delivery O2 Flow Rate FiO2 01/29/17 12:00 98.0 68 20 102/ 99 Room Air 01/29/17 10:10 126/84 01/29/17 10:04 94 126/84 01/29/17 08:00 98.0 100 20 112/68 97 Room Air 01/29/17 04:00 97.9 83 20 103/73 95 Room Air 01/29/17 00:00 97.4 77 20 109/53 99 Room Air 01/28/17 20:00 97.4 80 20 135/63 94 Room Air 01/28/17 15:49 97.3 84 18 114/68 98 Room Air Intake and Output 01/29/17 01/30/17 19:00 07:00 Intake Total 245 ml Balance 245 ml Intake Oral 245 ml # Voids 1 General Appearance: WD/WN HEENT: normocephalic, anicteric Respiratory/Chest: chest wall non-tender, lungs clear Cardiovascular: normal peripheral pulses, normal rate, no JVD Extremities: no clubbing Neurologic/Psychiatric: no motor/sensory deficits, alert Laboratory Tests 01/29/17 06:20: White Blood Count 12.6H, Red Blood Count 3.91L, Hemoglobin 10.1L, Hematocrit 32.5L, Mean Corpuscular Volume 83, Mean Corpuscular Hemoglobin 25.9L, Mean Corpuscular Hemoglobin Concent 31.1L, Red Cell Distribution Width 14.4, Platelet Count 227, Mean Platelet Volume 7.1, Neutrophils (%) (Auto) 73.4, Lymphocytes (%) (Auto) 16.9L, Monocytes (%) (Auto) 6.2, Eosinophils (%) (Auto) 2.8, Basophils (%) (Auto) 0.7, Sodium Level 136, Potassium Level 4.0, Chloride Level 97L, Carbon Dioxide Level 31H, Anion Gap 8, Blood Urea Nitrogen 14, Creatinine 0.6, Estimat Glomerular Filtration Rate > 60, Glucose Level 118H, Calcium Level 10.2 Current Medications Medications (Trade) Dose Ordered Sig/Key Route PRN Reason Start Time Stop Time Status Last Admin Dose Admin Acetaminophen/ Codeine Phosphate (Tylenol #3) 1 tab Q4H PRN ORAL For Pain MILD-MODERATE 01/25/17 05:30 02/01/17 05:29 Acetaminophen/ Codeine Phosphate (Tylenol #3) 2 tab Q6H PRN ORAL For Pain SEVERE PAIN 01/25/17 05:30 02/01/17 05:29 Apixaban (Eliquis) 5 mg BID ORAL 01/25/17 21:00 02/24/17 20:59 01/29/17 08:28 Benazepril HCl (Lotensin) 20 mg DAILY ORAL 01/25/17 09:00 02/24/17 08:59 01/29/17 10:10 Chlorhexidine Gluconate (Priti-Hex 2%) 1 applic DAILY TOPIC 01/26/17 10:00 02/25/17 09:59 01/29/17 08:28 Diphenhydramine HCl (Benadryl) 25 mg Q4H PRN IVP ALLERGIC REACTION 01/26/17 01:30 02/25/17 01:29 01/26/17 01:43 Docusate Sodium (Colace) 100 mg TWICE A DAY ORAL 01/25/17 09:00 02/24/17 08:59 01/29/17 08:27 Furosemide (Lasix) 20 mg DAILY ORAL 01/25/17 09:00 02/24/17 08:59 01/29/17 08:27 Hydrochlorothiazide (Hydrodiuril) 25 mg DAILY ORAL 01/25/17 09:00 02/24/17 08:59 01/29/17 08:27 Hydromorphone HCl (Dilaudid) 1 mg Q4H PRN IVP Severe Pain/Unable to take ora 01/26/17 13:15 02/01/17 05:59 01/29/17 04:16 Ondansetron HCl (Zofran) 4 mg Q6H PRN IVP Nausea & Vomiting 01/25/17 01:15 02/24/17 01:14 01/25/17 01:55 Patient Own Medication (Patient's Own Med) 1 ea DAILY ORAL 01/25/17 15:00 02/24/17 14:59 01/29/17 08:28 Vancomycin HCl (Vanco rx to dose) 1 ea DAILY PRN MISC Per rx protocol 01/25/17 06:15 02/24/17 06:14 Vancomycin HCl/ Dextrose 250 ml @ 125 mls/hr Q12HR@0500,1700 IVPB 01/27/17 05:00 02/08/17 18:00 01/29/17 04:17 VIKTORIYA CONNOR Jan 29, 2017 15:36
[2017-01-30] VITALS (8 sets, daily range): BP systolic 88–143; BP diastolic 50–77
[2017-01-30] MEDS: Hydromorphone 0.5mg/0.5ml inj IVP PRN ×4 (02:20→18:46)
[2017-01-30] MEDS: Vancomycin 1.5 GM/D5W 250ML IVPB SCH ×2 (05:05→16:34)
[2017-01-30 05:34] LABS: BASOPHILS % (AUTO) 1.3 % (0.0-2.0); LYMPHOCYTES % (AUTO) 19.9 % (20.0-45.0); MEAN CORPUSCULAR HEMOGLOBIN 25.5 PG (27.0-31.0); MEAN CORPUSCULAR HGB CONC 30.5 G/DL (32.0-36.0); MEAN CORPUSCULAR VOLUME 84 FL (80-99); MEAN PLATELET VOLUME 6.8 FL (6.5-10.1); MONOCYTES % (AUTO) 6.3 % (1.0-10.0); NEUTROPHILS % (AUTO) 69.5 % (45.0-75.0); PLATELET COUNT 229 K/UL (150-450); RED BLOOD COUNT 3.97 M/UL (4.20-5.40); RED CELL DISTRIBUTION WIDTH 14.7 % (11.6-14.8); WHITE BLOOD COUNT 13.3 K/UL (4.8-10.8)
[2017-01-30 06:09] LABS: ANION GAP 9 (5-15); CARBON DIOXIDE 32 mEQ/L (20-30); CHLORIDE 97 mEQ/L (98-107); CREATININE 0.6 mg/dL (0.5-0.9); GLOMERULAR FILTRATION RATE > 60 mL/min (>60); HEMOLYSIS 1; POTASSIUM 4.2 mEQ/L (3.4-4.9); SODIUM 138 mEQ/L (135-145)
[2017-01-30] MEDS: Dyna-Hex 2% Top Sol 8oz TOPIC SCH (08:45)
[2017-01-30] MEDS: Docusate 100mg cap ORAL SCH ×2 (08:48→18:46)
[2017-01-30] MEDS: Eliquis 2.5mg tablet ORAL SCH ×2 (08:49→18:46)
[2017-01-30] MEDS: ULORIC 40 MG ORAL SCH (08:51)
[2017-01-30] MEDS: Benazepril 10mg tab ORAL SCH (08:54)
--- NOTE | 2017-01-30 15:08 | Infectious Diseases Prog Note ---
Assessment/Plan Assessment/Plan A) 1) MRSA left leg wound infection/cellulitis, leukocytosis - wounds with drainage - still with cellulitis - leukocytosis worse 2) htn, obesity, dvt, cps, cpm, hx cellulitis and wounds, anemia, asthma, gib , gout 3) allergies - sulfa, fh-nc, sh-negative, 4) mar noted, notes and records noted 5) d/w RN P) 1) vancomycin, restart cefepime - plan on 10 days abx more (day # 5/) 2) wound care per protocol 3) orders entered and noted 4) watch labs 5) continue tx per primary 6) vre colonization and isolation 7) check labs Subjective Constitutional: Denies: fever HEENT: Denies: congestion Respiratory: Denies: shortness of breath Cardiovascular: Denies: chest pain Gastrointestinal/Abdominal: Denies: nausea, vomiting, diarrhea Genitourinary: Reports: other - no eaton Psychiatric: Denies: depression Skin: Denies: rash Hematologic: Denies: bleeding Musculoskeletal: Reports: pain - left leg with pain and swelling Allergies: Coded Allergies: SULFA (SULFONAMIDE ANTIBIOTICS) (Unverified Allergy, Unknown, 05/02/15) allergy history per Dr. Jones Objective Vital Signs Last 24 Hour Vital Signs Date Time Temp Pulse Resp B/P (MAP) Pulse Ox O2 Delivery O2 Flow Rate FiO2 01/30/17 13:40 98.0 01/30/17 11:30 98.0 89 19 122/76 97 Room Air 01/30/17 08:54 143/69 01/30/17 08:52 79 143/69 01/30/17 08:10 98.1 85 20 102/55 98 Room Air 01/30/17 04:45 102/69 01/30/17 04:12 97.9 75 19 88/50 98 Room Air 01/30/17 00:00 98.1 88 20 115/77 100 Room Air 01/29/17 20:00 97.9 87 20 107/66 99 Room Air 01/29/17 16:00 96.4 86 20 149/79 96 Room Air Height (Feet): 6 Height (Inches): 1.00 Weight (Pounds): 430 General Appearance: no acute distress HEENT: normocephalic, atraumatic, anicteric, mucous membranes moist, EOMI, pharynx normal, supple, no JVD Respiratory/Chest: lungs clear, normal breath sounds, no respiratory distress, no accessory muscle use Cardiovascular: normal rate, regular rhythm, no gallop/murmur, no JVD Abdomen: normal bowel sounds, soft, non tender, no organomegaly, non distended Genitourinary: other - no eaton, no cva pain Extremities: no cyanosis, other - left leg wound with some drainage, still with swelling and warmth Skin: no rash Neurologic/Psychiatric: presidential support specialist II-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 grossly normal, alert, 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, responsive Lymphatic: no neck adenopathy Musculoskeletal: no effusion Objective chest x-ray - negative (noted) x-ray - left leg - no fx or osteo (report noted) Microbiology Date/Time Source Procedure Growth Status 01/25/17 12:00 Blood Blood Culture - Preliminary NO GROWTH AFTER 4 DAYS Resulted 01/25/17 04:30 Nasal Nares MRSA Culture - Final Staphylococcus Aureus - Mrsa Complete 01/25/17 04:30 Rectum VRE Culture - Final Enterococcus Faecalis - Vre Complete Laboratory Tests Test 01/30/17 05:05 White Blood Count 13.3 K/UL (4.8-10.8) H Red Blood Count 3.97 M/UL (4.20-5.40) L Hemoglobin 10.1 G/DL (12.0-16.0) L Hematocrit 33.3 % (37.0-47.0) L Mean Corpuscular Volume 84 FL (80-99) Mean Corpuscular Hemoglobin 25.5 PG (27.0-31.0) L Mean Corpuscular Hemoglobin Concent 30.5 G/DL (32.0-36.0) L Red Cell Distribution Width 14.7 % (11.6-14.8) Platelet Count 229 K/UL (150-450) Mean Platelet Volume 6.8 FL (6.5-10.1) Neutrophils (%) (Auto) 69.5 % (45.0-75.0) Lymphocytes (%) (Auto) 19.9 % (20.0-45.0) L Monocytes (%) (Auto) 6.3 % (1.0-10.0) Eosinophils (%) (Auto) 3.0 % (0.0-3.0) Basophils (%) (Auto) 1.3 % (0.0-2.0) Sodium Level 138 mEQ/L (135-145) Potassium Level 4.2 mEQ/L (3.4-4.9) Chloride Level 97 mEQ/L (98-107) L Carbon Dioxide Level 32 mEQ/L (20-30) H Anion Gap 9 (5-15) Blood Urea Nitrogen 15 mg/dL (7-23) Creatinine 0.6 mg/dL (0.5-0.9) Estimat Glomerular Filtration Rate > 60 mL/min (>60) Glucose Level 109 mg/dL (74-106) H Calcium Level 9.0 mg/dL (8.6-10.2) Current Medications Medications (Trade) Dose Ordered Sig/Key Route PRN Reason Start Time Stop Time Status Last Admin Dose Admin Acetaminophen/ Codeine Phosphate (Tylenol #3) 1 tab Q4H PRN ORAL For Pain MILD-MODERATE 01/25/17 05:30 02/01/17 05:29 Acetaminophen/ Codeine Phosphate (Tylenol #3) 2 tab Q6H PRN ORAL For Pain SEVERE PAIN 01/25/17 05:30 02/01/17 05:29 Apixaban (Eliquis) 5 mg BID ORAL 01/25/17 21:00 02/24/17 20:59 01/30/17 08:49 Benazepril HCl (Lotensin) 20 mg DAILY ORAL 01/25/17 09:00 02/24/17 08:59 01/30/17 08:54 Chlorhexidine Gluconate (Priti-Hex 2%) 1 applic DAILY TOPIC 01/26/17 10:00 02/25/17 09:59 01/30/17 08:45 Diphenhydramine HCl (Benadryl) 25 mg Q4H PRN IVP ALLERGIC REACTION 01/26/17 01:30 02/25/17 01:29 01/26/17 01:43 Docusate Sodium (Colace) 100 mg TWICE A DAY ORAL 01/25/17 09:00 02/24/17 08:59 01/30/17 08:48 Furosemide (Lasix) 20 mg DAILY ORAL 01/25/17 09:00 02/24/17 08:59 01/30/17 08:53 Hydrochlorothiazide (Hydrodiuril) 25 mg DAILY ORAL 01/25/17 09:00 02/24/17 08:59 01/30/17 08:56 Hydromorphone HCl (Dilaudid) 1 mg Q4H PRN IVP Severe Pain/Unable to take ora 01/26/17 13:15 02/01/17 05:59 01/30/17 13:10 Ondansetron HCl (Zofran) 4 mg Q6H PRN IVP Nausea & Vomiting 01/25/17 01:15 02/24/17 01:14 01/25/17 01:55 Patient Own Medication (Patient's Own Med) 1 ea DAILY ORAL 01/25/17 15:00 02/24/17 14:59 01/30/17 08:51 Vancomycin HCl (Vanco rx to dose) 1 ea DAILY PRN MISC Per rx protocol 01/25/17 06:15 02/24/17 06:14 Vancomycin HCl/ Dextrose 250 ml @ 125 mls/hr Q12HR@0500,1700 IVPB 01/27/17 05:00 02/08/17 18:00 01/30/17 05:05 ASTER HACKETT Jan 30, 2017 15:08
--- NOTE | 2017-01-30 16:38 | Pulmonology Progress Note ---
Assessment/Plan Problems: (1) Cellulitis, leg (2) HTN (hypertension) (3) Morbid obesity (4) Gout Assessment/Plan improving wbc slightly high f/u by ID continue abx check cultures all notes and meds reviewed might benefit from LTAC Subjective ROS Limited/Unobtainable: No Constitutional: Reports: no symptoms HEENT: Repors: no symptoms Respiratory: Reports: no symptoms Cardiovascular: Reports: no symptoms Allergies: Coded Allergies: SULFA (SULFONAMIDE ANTIBIOTICS) (Unverified Allergy, Unknown, 05/02/15) allergy history per Dr. Jones Objective Last 24 Hour Vital Signs Date Time Temp Pulse Resp B/P (MAP) Pulse Ox O2 Delivery O2 Flow Rate FiO2 01/30/17 15:55 98.2 90 20 117/67 100 Room Air 01/30/17 13:40 98.0 01/30/17 11:30 98.0 89 19 122/76 97 Room Air 01/30/17 08:54 143/69 01/30/17 08:52 79 143/69 01/30/17 08:10 98.1 85 20 102/55 98 Room Air 01/30/17 04:45 102/69 01/30/17 04:12 97.9 75 19 88/50 98 Room Air 01/30/17 00:00 98.1 88 20 115/77 100 Room Air 01/29/17 20:00 97.9 87 20 107/66 99 Room Air General Appearance: WD/WN HEENT: normocephalic, atraumatic Respiratory/Chest: lungs clear Breasts: no masses Cardiovascular: normal peripheral pulses Abdomen: normal bowel sounds, soft, non tender Genitourinary: normal external genitalia Extremities: no cyanosis Skin: no rash Laboratory Tests 01/30/17 05:05: White Blood Count 13.3H, Red Blood Count 3.97L, Hemoglobin 10.1L, Hematocrit 33.3L, Mean Corpuscular Volume 84, Mean Corpuscular Hemoglobin 25.5L, Mean Corpuscular Hemoglobin Concent 30.5L, Red Cell Distribution Width 14.7, Platelet Count 229, Mean Platelet Volume 6.8, Neutrophils (%) (Auto) 69.5, Lymphocytes (%) (Auto) 19.9L, Monocytes (%) (Auto) 6.3, Eosinophils (%) (Auto) 3.0, Basophils (%) (Auto) 1.3, Sodium Level 138, Potassium Level 4.2, Chloride Level 97L, Carbon Dioxide Level 32H, Anion Gap 9, Blood Urea Nitrogen 15, Creatinine 0.6, Estimat Glomerular Filtration Rate > 60, Glucose Level 109H, Calcium Level 9.0 Current Medications Medications (Trade) Dose Ordered Sig/Key Route PRN Reason Start Time Stop Time Status Last Admin Dose Admin Acetaminophen/ Codeine Phosphate (Tylenol #3) 1 tab Q4H PRN ORAL For Pain MILD-MODERATE 01/25/17 05:30 02/01/17 05:29 Acetaminophen/ Codeine Phosphate (Tylenol #3) 2 tab Q6H PRN ORAL For Pain SEVERE PAIN 01/25/17 05:30 02/01/17 05:29 Apixaban (Eliquis) 5 mg BID ORAL 01/25/17 21:00 02/24/17 20:59 01/30/17 08:49 Benazepril HCl (Lotensin) 20 mg DAILY ORAL 01/25/17 09:00 02/24/17 08:59 01/30/17 08:54 Cefepime HCl 2 gm/ Dextrose 100 ml @ 200 mls/hr Q12HR IVPB 01/30/17 18:00 02/06/17 17:59 Chlorhexidine Gluconate (Priti-Hex 2%) 1 applic DAILY TOPIC 01/26/17 10:00 02/25/17 09:59 01/30/17 08:45 Diphenhydramine HCl (Benadryl) 25 mg Q4H PRN IVP ALLERGIC REACTION 01/26/17 01:30 02/25/17 01:29 01/26/17 01:43 Docusate Sodium (Colace) 100 mg TWICE A DAY ORAL 01/25/17 09:00 02/24/17 08:59 01/30/17 08:48 Furosemide (Lasix) 20 mg DAILY ORAL 01/25/17 09:00 02/24/17 08:59 01/30/17 08:53 Hydrochlorothiazide (Hydrodiuril) 25 mg DAILY ORAL 01/25/17 09:00 02/24/17 08:59 01/30/17 08:56 Hydromorphone HCl (Dilaudid) 1 mg Q4H PRN IVP Severe Pain/Unable to take ora 01/26/17 13:15 02/01/17 05:59 01/30/17 13:10 Ondansetron HCl (Zofran) 4 mg Q6H PRN IVP Nausea & Vomiting 01/25/17 01:15 02/24/17 01:14 01/25/17 01:55 Patient Own Medication (Patient's Own Med) 1 ea DAILY ORAL 01/25/17 15:00 02/24/17 14:59 01/30/17 08:51 Vancomycin HCl (Vanco rx to dose) 1 ea DAILY PRN MISC Per rx protocol 01/25/17 06:15 02/24/17 06:14 Vancomycin HCl/ Dextrose 250 ml @ 125 mls/hr Q12HR@0500,1700 IVPB 01/27/17 05:00 02/08/17 18:00 01/30/17 16:34 VIKTORIYA CONNOR Jan 30, 2017 16:38
[2017-01-30] MEDS ORDERED: CEFEPIME 22 GM/100 M IV (18:14)
[2017-01-30] MEDS ORDERED: VANCOMYCIN1 GM/2502 IVPB (18:15)
--- NOTE | 2017-01-30 18:20 | Internal Med Progress Note ---
Subjective Date of Service: Jan 30, 2017 Physician Name Jo Schmid Attending Physician Jo Schmid Current Medications Medications (Trade) Dose Ordered Sig/Key Route PRN Reason Start Time Stop Time Status Last Admin Dose Admin Acetaminophen/ Codeine Phosphate (Tylenol #3) 1 tab Q4H PRN ORAL For Pain MILD-MODERATE 01/25/17 05:30 02/01/17 05:29 Acetaminophen/ Codeine Phosphate (Tylenol #3) 2 tab Q6H PRN ORAL For Pain SEVERE PAIN 01/25/17 05:30 02/01/17 05:29 Apixaban (Eliquis) 5 mg BID ORAL 01/25/17 21:00 02/24/17 20:59 01/30/17 08:49 Benazepril HCl (Lotensin) 20 mg DAILY ORAL 01/25/17 09:00 02/24/17 08:59 01/30/17 08:54 Cefepime HCl 2 gm/ Dextrose 100 ml @ 200 mls/hr Q12HR IVPB 01/30/17 18:00 02/06/17 17:59 Chlorhexidine Gluconate (Priti-Hex 2%) 1 applic DAILY TOPIC 01/26/17 10:00 02/25/17 09:59 01/30/17 08:45 Diphenhydramine HCl (Benadryl) 25 mg Q4H PRN IVP ALLERGIC REACTION 01/26/17 01:30 02/25/17 01:29 01/26/17 01:43 Docusate Sodium (Colace) 100 mg TWICE A DAY ORAL 01/25/17 09:00 02/24/17 08:59 01/30/17 08:48 Furosemide (Lasix) 20 mg DAILY ORAL 01/25/17 09:00 02/24/17 08:59 01/30/17 08:53 Hydrochlorothiazide (Hydrodiuril) 25 mg DAILY ORAL 01/25/17 09:00 02/24/17 08:59 01/30/17 08:56 Hydromorphone HCl (Dilaudid) 1 mg Q4H PRN IVP Severe Pain/Unable to take ora 01/26/17 13:15 02/01/17 05:59 01/30/17 13:10 Ondansetron HCl (Zofran) 4 mg Q6H PRN IVP Nausea & Vomiting 01/25/17 01:15 02/24/17 01:14 01/25/17 01:55 Patient Own Medication (Patient's Own Med) 1 ea DAILY ORAL 01/25/17 15:00 02/24/17 14:59 01/30/17 08:51 Vancomycin HCl (Vanco rx to dose) 1 ea DAILY PRN MISC Per rx protocol 01/25/17 06:15 02/24/17 06:14 Vancomycin HCl/ Dextrose 250 ml @ 125 mls/hr Q12HR@0500,1700 IVPB 01/27/17 05:00 02/08/17 18:00 01/30/17 16:34 Allergies: Coded Allergies: SULFA (SULFONAMIDE ANTIBIOTICS) (Unverified Allergy, Unknown, 05/02/15) allergy history per Dr. Robert BAUER Limited/Unobtainable: No Constitutional: Reports: no symptoms HEENT: Reports: no symptoms Cardiovascular: Reports: no symptoms Respiratory: Reports: no symptoms Gastrointestinal/Abdominal: Reports: no symptoms Genitourinary: Reports: no symptoms Neurologic/Psychiatric: Reports: no symptoms Subjective 56 YO F admitted with Cellulitis left leg. Await transfer to SNF Objective Last Vital Signs Date Time Temp Pulse Resp B/P (MAP) Pulse Ox O2 Delivery O2 Flow Rate FiO2 01/30/17 15:55 98.2 90 20 117/67 100 Room Air Laboratory Tests Test 01/30/17 05:05 White Blood Count 13.3 K/UL (4.8-10.8) H Red Blood Count 3.97 M/UL (4.20-5.40) L Hemoglobin 10.1 G/DL (12.0-16.0) L Hematocrit 33.3 % (37.0-47.0) L Mean Corpuscular Volume 84 FL (80-99) Mean Corpuscular Hemoglobin 25.5 PG (27.0-31.0) L Mean Corpuscular Hemoglobin Concent 30.5 G/DL (32.0-36.0) L Red Cell Distribution Width 14.7 % (11.6-14.8) Platelet Count 229 K/UL (150-450) Mean Platelet Volume 6.8 FL (6.5-10.1) Neutrophils (%) (Auto) 69.5 % (45.0-75.0) Lymphocytes (%) (Auto) 19.9 % (20.0-45.0) L Monocytes (%) (Auto) 6.3 % (1.0-10.0) Eosinophils (%) (Auto) 3.0 % (0.0-3.0) Basophils (%) (Auto) 1.3 % (0.0-2.0) Sodium Level 138 mEQ/L (135-145) Potassium Level 4.2 mEQ/L (3.4-4.9) Chloride Level 97 mEQ/L (98-107) L Carbon Dioxide Level 32 mEQ/L (20-30) H Anion Gap 9 (5-15) Blood Urea Nitrogen 15 mg/dL (7-23) Creatinine 0.6 mg/dL (0.5-0.9) Estimat Glomerular Filtration Rate > 60 mL/min (>60) Glucose Level 109 mg/dL (74-106) H Calcium Level 9.0 mg/dL (8.6-10.2) Intake and Output 01/30/17 01/31/17 19:00 07:00 Intake Total 745 ml Output Total 650 ml Balance 95 ml Intake Oral 620 ml IV Total 125 ml Output Urine Total 650 ml Objective General Appearance: WD/WN, no apparent distress, alert, obese EENT: PERRL/EOMI, normal ENT inspection Neck: non-tender, normal alignment, supple Cardiovascular: normal peripheral pulses, normal rate, regular rhythm, no gallop/murmur, no JVD Respiratory/Chest: chest wall non-tender, lungs clear, normal breath sounds, no respiratory distress, no accessory muscle use Abdomen: normal bowel sounds, non tender, soft, no organomegaly, no mass Extremities: normal range of motion Neurologic: 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 See ID note. (2) HTN (hypertension) Assessment & Plan: Cont benazepril and HCTZ (3) Morbid obesity (4) DVT, bilateral lower limbs Assessment & Plan: Await venous doppler; Continue eliquis Status: progressing Assessment/Plan Discharge to longterm facility when bed available. JO SCHMID Jan 30, 2017 18:20
--- NOTE | 2017-02-01 14:19 | Discharge Summary ---
Discharge Summary Hospital Course Date of Admission Jan 24, 2017 at 21:57 Date of Discharge Jan 30, 2017 at 22:35 Admitting Diagnosis CELLULITIS HPI Marielle Mccormack is a 56 year old female who was admitted on Jan 24, 2017 at 21: 57 for Cellulitis Hospital Course [id number] Discharge Discharge Disposition Patient was discharged to SNF/Subacute Facility(03) Discharge Diagnoses: Tabby Munroe NP Feb 01, 2017 14:19
--- NOTE | 2017-02-02 07:32 | Discharge Summary 2 SIG ---
DATE OF ADMISSION: 01/24/2017 DATE OF DISCHARGE: 01/30/2017 CONSULTANTS: 1. Miguel Hernandez M.D. 2. Slim Javed M.D. Brief Hospital Course: The patient is a 56-year-old female, who presented to ED with chief complaint of leg pain and swelling. Symptoms started three to four weeks prior to admission. The patient is being followed as an outpatient by Dr. Jones. She has a left calf ulcer and has been treated by wound care and recently completed a course of Keflex. She presented to ED complaining of lower extremity pain and swelling and was admitted for cellulitis. Blood work showed leukocytosis, WBC was 13.7. X-ray of the left leg showed no dislocation or fracture. She was started on IV vancomycin and cefepime. Wound culture obtained showed growth of Staphylococcus aureus. She was given daily wound care. She had a prior DVT on lower extremity and was continued on Eliquis. Blood cultures did not isolate any growth. The patient would need to continue IV antibiotic. PICC line to the left arm was inserted. The patient was eventually discharged to SNF. FINAL DIAGNOSES: 1. Left leg cellulitis. 2. Hypertension. 3. Morbid obesity. 4. Deep venous thrombosis, bilateral lower limbs. 5. Gout. 6. Methicillin resistant Staphylococcus aureus, left leg wound infection with cellulitis. DISPOSITION: The patient was discharged to [facility]. DISCHARGE MEDICATIONS: Refer to medications list. Trever Holguin M.D. I have been assigned to dictate discharge summary on this account and I was not involved in the patient's management. Tabby Munroe N.P. DR: NONI JOB#: [id number] CC:
== END 2017-01-30 22:35 | DRG 603 ==
LOC: EMR 20:54 → 4E 21:57 → EDBEDREQ 22:28
PROC: 05H433Z Insertion of Infusion Device into Left Innominate Vein, Percutaneous Approach (ICD-10-PCS; principal; 2017-01-26)
DX: L03.116 Cellulitis of left lower limb (principal); I82.503 Chronic embolism and thrombosis of unspecified deep veins of lower extremity, bilateral; I10 Essential (primary) hypertension; Z68.43 Body mass index [BMI] 50.0-59.9, adult; S81.802A Unspecified open wound, left lower leg, initial encounter; X58.XXXA Exposure to other specified factors, initial encounter; E66.01 Morbid (severe) obesity due to excess calories; Z79.01 Long term (current) use of anticoagulants; Z88.2 Allergy status to sulfonamides; M10.9 Gout, unspecified; B95.62 Methicillin resistant Staphylococcus aureus infection as the cause of diseases classified elsewhere
CPT/HCPCS: 36415; 36569; 71010; 76937; 80048; 80053; 80202; 81003; 82270; 82378; 82550; 82553; 82607; 82746; 83540; 83550; 83605; 83615; 84484; 85007; 85025; 85044; 85060; 85610; 85651; 85730; 87040; 87070; 87081; 87181; 87205; 93005; 93970; 99285; J2405

== ENCOUNTER 2017-02-16 14:03 | Inpatient (IN) | payer MEDICARE, OTHER ==
[~2017-02-16] VITALS: Ht 185.4 cm; Wt 201.9 kg
[~2017-02-16 14:03] MED LIST changes: +CEFEPIME 22 GM/100 M IV
--- NOTE | 2017-02-16 14:22 | Emergency Room Report ---
History of Present Illness General Chief Complaint: Chest Pain Present Illness HPI [id number] BIBEMS from SNF with left sided chest pain. "Feels like a rippling" across her left chest to left back. Worse with movement. No assoc nausea/vomiting, SOB. Denies cough, fever/chills. Echo earlier 2017: 1. Atypical chest pain, non-ischemic dobutamine stress echo with normal baseline LVEF. Per DC summary last month is on Elliquis for prior DVT but ultrasound on that visit does not show DVT Allergies: Coded Allergies: SULFA (SULFONAMIDE ANTIBIOTICS) (Unverified Allergy, Unknown, 05/02/15) allergy history per Dr. Jones Patient History Past Medical History: other - DVT, HTN, obesity Past Surgical History: none Pertinent Family History: none Social History: Denies: smoking, alcohol use, drug use Now: No Immunizations: UTD Reviewed Nursing Documentation: PMH: Agreed, PSxH: Agreed Nursing Documentation-PMH Hx Cardiac Problems: Yes - bilateral leg blood clots x 2 yr Hx Hypertension: Yes Hx Asthma: Yes - Childhood Hx Cancer: No Hx Gastrointestinal Problems: Yes - GI bleeding Hx Neurological Problems: No Hx Cerebrovascular Accident: No - CELLULITIS LOWER ABD AND BI-LAT LEGS Review of Systems All Other Systems: negative except mentioned in HPI Physical Exam Vital Signs Date Time Temp Pulse Resp B/P (MAP) Pulse Ox O2 Delivery O2 Flow Rate FiO2 02/16/17 14:11 97.7 82 16 138/78 99 Room Air Sp02 EP Interpretation: reviewed, normal General Appearance: normal inspection, well appearing, no apparent distress, alert, GCS 15, non-toxic, obese Head: normocephalic, atraumatic Eyes: bilateral eye PERRL, bilateral eye EOMI ENT: normal ENT inspection, hearing grossly normal, normal voice Neck: normal inspection, full range of motion, supple, no bony tend Respiratory: normal inspection, lungs clear, normal breath sounds, no respiratory distress, no retraction, no wheezing, other - Chest pain reproducible Cardiovascular #1: regular rate, rhythm, no edema Gastrointestinal: normal inspection, normal bowel sounds, non tender, soft, no guarding, no hernia Genitourinary: no CVA tenderness Musculoskeletal: normal inspection, back normal, normal range of motion, Stefan' s Sign negative Neurologic: normal inspection, alert, oriented x3, responsive, project manager finance III-XII nml as tested, speech normal Psychiatric: normal inspection, judgement/insight normal, mood/affect normal Skin: normal inspection, normal color, no rash Lymphatic: normal inspection Medical Decision Making Diagnostic Impression: Primary Impression: Chest pain Qualified Codes: R07.9 - Chest pain, unspecified Additional Impression: Non-ST elevated myocardial infarction (non-STEMI) ER Course VSS. Afebrile ECG is NSR. No ischemia Troponin acutely elevated 0.017 On Elliquis Will recommend HOLD Elliquis tonight, ?start heparin tomorrow Unlikely PE given compliant with Elliquis Admtited to Tele for NSTEMI to Dr Dee at 447pm EKG Diagnostic Results Rate: normal, other - PVCs Rhythm: NSR ST Segments: no acute changes ASA given to the pt in ED: No PA Scribe Text Was given ASA by EMS even though on Elliquis Rhythm Strip Diag. Results EP Interpretation: yes Rate: 77 Rhythm: NSR, other - Multiple PVCs Chest X-Ray Diagnostic Results Chest X-Ray Diagnostic Results : Chest X-Ray Ordered: Yes # of Views/Limited/Complete: 1 View Indication: Chest Pain EP Interpretation: Yes Interpretation: no consolidation, no effusion, no pneumothorax, no acute cardiopulmonary disease Impression: No acute disease Electronically Signed by: Dr Neelima Yadav MD Last Vital Signs Date Time Temp Pulse Resp B/P (MAP) Pulse Ox O2 Delivery O2 Flow Rate FiO2 02/16/17 14:11 97.7 82 16 138/78 99 Room Air Status: improved Disposition: ADMITTED INPATIENT Condition: Critical NEELIMA YADAV M.D. Feb 16, 2017 14:22
[2017-02-16 15:28] LABS: BASOPHILS % (AUTO) 1.3 % (0.0-2.0); EOSINOPHILS % (AUTO) 4.9 % (0.0-3.0); LYMPHOCYTES % (AUTO) 14.9 % (20.0-45.0); MEAN CORPUSCULAR HEMOGLOBIN 25.8 PG (27.0-31.0); MEAN CORPUSCULAR HGB CONC 30.6 G/DL (32.0-36.0); MEAN CORPUSCULAR VOLUME 84 FL (80-99); MEAN PLATELET VOLUME 6.5 FL (6.5-10.1); MONOCYTES % (AUTO) 5.9 % (1.0-10.0); NEUTROPHILS % (AUTO) 73.1 % (45.0-75.0); PLATELET COUNT 243 K/UL (150-450); RED BLOOD COUNT 3.95 M/UL (4.20-5.40); RED CELL DISTRIBUTION WIDTH 14.8 % (11.6-14.8); WHITE BLOOD COUNT 12.2 K/UL (4.8-10.8)
[2017-02-16 15:37] LABS: ALANINE AMINOTRANSFERASE 8 U/L (3-33); ALBUMIN/GLOBULIN RATIO 0.8 (1.0-2.7); ANION GAP 9 (5-15); ASPARTATE AMINO TRANSFERASE 11 U/L (5-40); CALCIUM 8.7 mg/dL (8.6-10.2); CARBON DIOXIDE 31 mEQ/L (20-30); CHLORIDE 99 mEQ/L (98-107); CREATININE 0.9 mg/dL (0.5-0.9); GLOMERULAR FILTRATION RATE > 60 mL/min (>60); HEMOLYSIS 1; POTASSIUM 3.8 mEQ/L (3.4-4.9); SODIUM 139 mEQ/L (135-145); TOTAL PROTEIN 7.4 g/dL (6.6-8.7)
[2017-02-16 15:48] LABS: CKMB 2.3 ng/mL (< 3.8)
[2017-02-16 15:56] LABS: TROPONIN I 0.017 ng/mL (0.000-0.056)
[2017-02-16 16:09] VITALS: BP 132/40
[2017-02-16 16:30] LABS: PROTHROMBIN TIME 10.3 SEC (9.30-11.50)
[2017-02-16] MEDS ORDERED: Nitroglycerin Subl 0.4mg tab SL PRN ×2 (17:15→19:15)
[2017-02-16 18:39] VITALS: BP 102/36
[2017-02-16] MEDS ORDERED: Lisinopril 20mg tab ORAL ONE (19:00)
[2017-02-16] MEDS ORDERED: Tylenol #3 tab (300mg/30mg) ORAL PRN ×2 (19:00)
--- NOTE | 2017-02-16 19:13 | History & Physical ---
History and Physical History & Physicial Bj Dee MD Feb 16, 2017 19:13
[2017-02-16] MEDS ORDERED: Acetaminophen 650 MG SUPP RECTAL PRN (19:15)
[2017-02-16] MEDS ORDERED: Milk of Magnesia 30ml Ud ORAL PRN (19:15)
[2017-02-16] MEDS ORDERED: Tylenol #4 Tab (300mg/60mg) ORAL PRN (19:15)
[2017-02-16] MEDS ORDERED: Miralax 17gm pkt ORAL PRN (19:15)
[2017-02-16 20:00] VITALS: BP 97/50
[2017-02-16] MEDS: Docusate 100mg cap ORAL SCH (21:08)
[2017-02-17 00:46] VITALS: BP 120/47
[2017-02-17 04:00] VITALS: BP 124/67
--- NOTE | 2017-02-17 05:00 | History and Physical Report ---
DATE OF ADMISSION: 02/16/2017 CHIEF COMPLAINT: Chest pain. History Of Present Illness: This is a 56-year-old very delightful female with past medical history significant for hypertension, deep vein thrombosis of bilateral lower extremity on Eliquis, chronic pain syndrome, history of bilateral lower extremity cellulitis, and morbid obesity, who was presented to the hospital after she was noted complaining about chest pain from nursing facility. The patient stated that chest pain mostly left side of the chest wall and radiation to the back. Denies any associated nausea, vomiting, or shortness of breath. Shortly after initial evaluation in the emergency room, the patient was admitted to the hospital with chest pain, possible acute coronary syndrome. Past Medical History/Past Surgical History: As above, history of DVT, hypertension, morbid obesity, history of gout as well as factor V Leiden deficiency, the patient has a history of left lower extremity cellulitis with chronic edema, venous stasis with history of methicillin-resistant Staphylococcus aureus infection of the left lower extremity wound. Medications: At home, Tylenol No. 3, benazepril 20 mg, Colace, Lasix, Eliquis, and Uloric. ALLERGIES: Sulfa medications. Social History: No smoking, alcohol, or drugs. She is disabled. She is [facility] resident. FAMILY HISTORY: Noncontributory. Review Of Systems: Mostly as above. Denies any dysuria, frequency, hematuria, or hematochezia. Complained about leg edema, has been improved. Denies any hemoptysis or hematochezia. Denies any bright red blood per rectum. Denies any loss of consciousness. PHYSICAL EXAMINATION: GENERAL: The patient awake, responsive, in no acute distress. Vital signs: On admission, temperature 97.7, pulse of 82, respirations 16, and blood pressure 138/78. Head And Neck: Pupils are equal and reactive to light. Extraocular movements are intact. Neck was supple. No JVD. LUNGS: Good air entry. No wheezes or rales. HEART: S1 and S2. Distant heart sounds. No murmur or gallop. ABDOMEN: Soft, nondistended, and nontender. Morbid obesity. Extremities: No cyanosis or clubbing. There is +2 edema bilateral lower extremities. Diagnostic Data: Laboratories on admission from the ER: WBC of 12, hemoglobin 10, hematocrit 33, and platelets 243. Sodium 139, potassium 3.8, chloride 99, bicarbonate 31, BUN 17, creatinine 0.9, and glucose is 106, AST of 11, AST of 8, and alkaline phosphatase was 73. Troponin less than 0.017. BNP of 95. Albumin is 3.3. PT of 10 and INR 1.0. The patient had an EKG in the field, normal sinus rhythm, ventricular rate of 87, PVCs, and no ST elevation or T-wave inversion. ASSESSMENT: 1. Chest pain, possible acute coronary syndrome. 2. History of cellulitis of left lower extremity. 3. Morbid obesity. 4. History of deep vein thrombosis of bilateral lower extremities. 5. Hypertension. Plan: Admit the patient to telemetry. Will follow up with Dr. Jose Carter, Cardiology. Resume [facility] medications, aspirin, and pain medication. The patient already on Eliquis for DVT treatment and prophylaxis and code status is Full Code. We will monitor laboratory including serial cardiac enzymes in the morning. Bj Dee M.D. DR: NICK JOB#: [id number] CC:
[2017-02-17] MEDS ORDERED: ELIQUIS5 MG PO (07:55)
[2017-02-17 08:07] VITALS: BP 116/73
[2017-02-17] MEDS ORDERED: Cathflo Alteplase 2mg Inj INJ ONE ×2 (09:00)
[2017-02-17] MEDS ORDERED: Xarelto 10mg tab ORAL SCH (09:00)
[2017-02-17] MEDS ORDERED: Docusate 100mg cap ORAL SCH (09:00)
[2017-02-17] MEDS: Hydromorphone 0.5mg/0.5ml inj IVP PRN ×2 (09:33→16:14)
[2017-02-17] MEDS: Eliquis 2.5mg tablet ORAL SCH ×2 (09:33→17:52)
[2017-02-17] MEDS: Aspirin Baby 81mg ORAL SCH (09:34)
[2017-02-17] MEDS: Docusate 100mg cap ORAL SCH ×2 (09:34→21:21)
--- NOTE | 2017-02-17 11:11 | Diagnostic Imaging Report ---
Indication: Chest pain Technique: XRAY CHEST 1 V Comparison: 01/26/17 Findings: Cardiomediastinal silhouette is stable. There is no consolidation, pneumothorax or pleural effusion. Osseous structures are stable. Left PICC line is present. Impression: No acute cardiopulmonary disease.
[2017-02-17 11:33] LABS: BASOPHILS % (AUTO) 0.7 % (0.0-2.0); EOSINOPHILS % (AUTO) 3.5 % (0.0-3.0); MEAN CORPUSCULAR HEMOGLOBIN 24.5 PG (27.0-31.0); MEAN CORPUSCULAR HGB CONC 29.6 G/DL (32.0-36.0); MEAN CORPUSCULAR VOLUME 83 FL (80-99); MEAN PLATELET VOLUME 6.9 FL (6.5-10.1); MONOCYTES % (AUTO) 5.4 % (1.0-10.0); NEUTROPHILS % (AUTO) 78.4 % (45.0-75.0); PLATELET COUNT 233 K/UL (150-450); RED BLOOD COUNT 4.33 M/UL (4.20-5.40); RED CELL DISTRIBUTION WIDTH 14.9 % (11.6-14.8); WHITE BLOOD COUNT 13.5 K/UL (4.8-10.8)
--- NOTE | 2017-02-17 11:34 | Internal Med Progress Note ---
Subjective Date of Service: Feb 17, 2017 Physician Name Schmid,Jo Attending Physician Bj Dee MD Current Medications Medications (Trade) Dose Ordered Sig/Key Route PRN Reason Start Time Stop Time Status Last Admin Dose Admin Acetaminophen (Tylenol) 650 mg Q4H PRN ORAL Mild Pain (Pain Scale 1-3) 02/16/17 19:15 03/18/17 19:14 02/17/17 00:25 Acetaminophen (Tylenol) 650 mg Q4H PRN ORAL fever 02/16/17 19:15 03/18/17 19:14 Acetaminophen (Tylenol) 650 mg Q4H PRN RECTAL Mild Pain (Pain Scale 1-3) 02/16/17 19:15 03/18/17 19:14 Acetaminophen/ Codeine Phosphate (Tylenol #3) 1 tab Q4H PRN ORAL FOR MODERATE PAIN 02/16/17 19:00 02/23/17 18:59 Acetaminophen/ Codeine Phosphate (Tylenol #3) 2 tab Q6H PRN ORAL SEVERE PAIN 02/16/17 19:00 02/23/17 18:59 Acetaminophen/ Codeine Phosphate (Tylenol #4) 1 ea Q6H PRN ORAL for severe breakthru pain 02/16/17 19:15 02/23/17 19:14 Apixaban (Eliquis) 5 mg BID ORAL 02/17/17 09:00 03/19/17 08:59 02/17/17 09:33 Aspirin (ASA) 81 mg DAILY ORAL 02/17/17 09:00 03/19/17 08:59 02/17/17 09:34 Bisacodyl (Dulcolax) 10 mg DAILYPRN PRN RECTAL Constipation 02/16/17 19:15 03/18/17 19:14 Dextrose (Dextrose 50%) STAT PRN IV Hypoglycemia 02/16/17 19:15 03/18/17 19:14 Docusate Sodium (Colace) 100 mg EVERY 12 HOURS ORAL 02/16/17 21:00 03/18/17 20:59 02/17/17 09:34 Furosemide (Lasix) 20 mg BID ORAL 02/16/17 19:45 03/18/17 19:44 02/17/17 09:33 Hydromorphone HCl (Dilaudid) 0.5 mg Q6HR PRN IVP Severe Pain (Pain Scale 7-10) 02/17/17 08:30 02/24/17 08:29 02/17/17 09:33 Magnesium Hydroxide (Mom) 30 ml HSPRN PRN ORAL Constipation 02/16/17 19:15 03/18/17 19:14 Nitroglycerin (Ntg) 0.4 mg Q5M PRN SL Prn Chest Pain 02/16/17 17:15 03/18/17 17:14 02/16/17 17:35 Ondansetron HCl (Zofran) 4 mg Q4HR PRN IVP Nausea & Vomiting 02/17/17 08:30 03/19/17 08:29 02/17/17 09:33 Polyethylene Glycol (Miralax) 17 gm DAILYPRN PRN ORAL Constipation 02/16/17 19:15 03/18/17 19:14 Allergies: Coded Allergies: SULFA (SULFONAMIDE ANTIBIOTICS) (Unverified Allergy, Unknown, 05/02/15) allergy history per Dr. Robert BAUER Limited/Unobtainable: No Constitutional: Reports: no symptoms HEENT: Reports: no symptoms Cardiovascular: Reports: chest pain Respiratory: Reports: no symptoms Gastrointestinal/Abdominal: Reports: no symptoms Genitourinary: Reports: no symptoms Neurologic/Psychiatric: Reports: no symptoms Subjective 56 YO F admitted with chest pain. Cover for Int Med-Dr Dee. Await cardiology consult. Objective Last Vital Signs Date Time Temp Pulse Resp B/P (MAP) Pulse Ox O2 Delivery O2 Flow Rate FiO2 02/17/17 08:07 98.1 78 18 116/73 97 Room Air General Appearance: alert, mild distress, obese EENT: PERRL/EOMI, normal ENT inspection, TMs normal Neck: non-tender, normal alignment, supple, normal inspection Cardiovascular: normal peripheral pulses, normal rate, regular rhythm, no gallop/murmur, no JVD Respiratory/Chest: chest wall non-tender, lungs clear, normal breath sounds, no respiratory distress, no accessory muscle use Abdomen: normal bowel sounds, non tender, soft, no organomegaly, no mass Extremities: normal range of motion, non-tender 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 II-XII grossly normal, no motor/sensory deficits Skin: normal pigmentation, warm/dry Laboratory Tests Test 02/16/17 15:10 02/17/17 10:50 White Blood Count 12.2 K/UL (4.8-10.8) H Pending Red Blood Count 3.95 M/UL (4.20-5.40) L Pending Hemoglobin 10.2 G/DL (12.0-16.0) L Pending Hematocrit 33.2 % (37.0-47.0) L Pending Mean Corpuscular Volume 84 FL (80-99) Pending Mean Corpuscular Hemoglobin 25.8 PG (27.0-31.0) L Pending Mean Corpuscular Hemoglobin Concent 30.6 G/DL (32.0-36.0) L Pending Red Cell Distribution Width 14.8 % (11.6-14.8) Pending Platelet Count 243 K/UL (150-450) Pending Mean Platelet Volume 6.5 FL (6.5-10.1) Pending Neutrophils (%) (Auto) 73.1 % (45.0-75.0) Pending Lymphocytes (%) (Auto) 14.9 % (20.0-45.0) L Pending Monocytes (%) (Auto) 5.9 % (1.0-10.0) Pending Eosinophils (%) (Auto) 4.9 % (0.0-3.0) H Pending Basophils (%) (Auto) 1.3 % (0.0-2.0) Pending Prothrombin Time 10.3 SEC (9.30-11.50) Prothromb Time International Ratio 1.0 (0.9-1.1) Sodium Level 139 mEQ/L (135-145) Pending Potassium Level 3.8 mEQ/L (3.4-4.9) Pending Chloride Level 99 mEQ/L (98-107) Pending Carbon Dioxide Level 31 mEQ/L (20-30) H Pending Anion Gap 9 (5-15) Blood Urea Nitrogen 17 mg/dL (7-23) Pending Creatinine 0.9 mg/dL (0.5-0.9) Pending Estimat Glomerular Filtration Rate > 60 mL/min (>60) Pending Glucose Level 106 mg/dL (74-106) Pending Calcium Level 8.7 mg/dL (8.6-10.2) Pending Total Bilirubin < 0.2 mg/dL (0.0-1.2) Pending Aspartate Amino Transf (AST/SGOT) 11 U/L (5-40) Pending Alanine Aminotransferase (ALT/SGPT) 8 U/L (3-33) Pending Alkaline Phosphatase 73 U/L (35-104) Pending Total Creatine Kinase 155 U/L (26-140) H Creatine Kinase MB 2.3 ng/mL (< 3.8) Creatine Kinase MB Relative Index 1.4 Troponin I 0.017 ng/mL (0.000-0.056) Pending Pro-B-Type Natriuretic Peptide 95 pg/mL (0-125) Total Protein 7.4 g/dL (6.6-8.7) Pending Albumin 3.3 g/dL (3.5-5.2) L Pending Globulin 4.1 g/dL Pending Albumin/Globulin Ratio 0.8 (1.0-2.7) L Phosphorus Level Pending Magnesium Level Pending Intake and Output 02/17/17 02/18/17 19:00 07:00 Intake Total 240 ml Output Total 150 ml Balance 90 ml Intake Oral 240 ml Output Urine Total 150 ml Assessment/Plan Problem List: (1) Chest pain Assessment & Plan: Await cardiology consult. Serial troponin levels. Await cardiolite stress test (2) HTN (hypertension) (3) Morbid obesity (4) Gout (5) DVT, bilateral lower limbs Assessment & Plan: Continue eliquis (6) Factor 5 Leiden mutation, heterozygous (7) Factor V Leiden Assessment & Plan: Continue eliquis Status: unchanged JO SCHMID Feb 17, 2017 11:34
[2017-02-17 11:37] LABS: ALANINE AMINOTRANSFERASE 8 U/L (3-33); ALBUMIN/GLOBULIN RATIO 0.5 (1.0-2.7); ANION GAP 11 (5-15); ASPARTATE AMINO TRANSFERASE 11 U/L (5-40); CALCIUM 8.8 mg/dL (8.6-10.2); CARBON DIOXIDE 32 mEQ/L (20-30); CHLORIDE 98 mEQ/L (98-107); CREATININE 0.6 mg/dL (0.5-0.9); GLOMERULAR FILTRATION RATE > 60 mL/min (>60); HEMOLYSIS 1; MAGNESIUM 1.9 mg/dL (1.7-2.5); PHOSPHORUS 4.4 mg/dL (2.5-4.8); SODIUM 141 mEQ/L (135-145); TOTAL PROTEIN 9.2 g/dL (6.6-8.7)
[2017-02-17 11:55] VITALS: BP 135/67
--- NOTE | 2017-02-17 12:33 | Consultation ---
History of Present Illness General Date patient seen: Feb 17, 2017 Chief Complaint: Chest Pain Present Illness HPI 56 with hx of CVA, HTN. CAD, DVt, asthma brought in by paramedics with left sided chest pain. Worse with movement. No assoc nausea/vomiting, SOB. She is admitted to telemetry to rule out ACS. Allergies: Coded Allergies: SULFA (SULFONAMIDE ANTIBIOTICS) (Unverified Allergy, Unknown, 05/02/15) allergy history per Dr. Jones Medication History Scheduled Apixaban (Eliquis), 5 MG PO BID, (Reported) Benazepril Hcl* (Benazepril Hcl*), 20 MG ORAL DAILY, (Reported) Cefepime Hcl/D5w (Cefepime-Dextrose 1 Gm/50 Ml), 1 GM IVPB EVERY 12 HOURS Cefepime Hcl/Dextrose, Iso-Osm (Cefepime 2 Gm Injection), 2 GM IV EVERY 12 HOURS , (Reported) Docusate Sodium* (Colace*), 100 MG ORAL TWICE A DAY, (Reported) Febuxostat (Uloric), 40 MG ORAL DAILY, (Reported) Furosemide* (Lasix*), 20 MG ORAL DAILY, (Reported) Hydrochlorothiazide* (Hydrochlorothiazide*), Unknown Dose ORAL DAILY, (Reported) Hydrochlorothiazide* (Hydrochlorothiazide*), 25 MG ORAL DAILY, (Reported) Rivaroxaban (Xarelto*), 20 MG ORAL DAILY, (Reported) Vancomycin Hcl/D5w (Vancomycin-D5w 1 G/250 Ml), 1.5 GM IVPB Q12HR, (Reported) Scheduled PRN Acetaminophen With Codeine (T#3) (Tylenol #3 Tab*), 2 TAB ORAL Q6H PRN for For Pain, (Reported) Acetaminophen With Codeine (T#3) (Tylenol With Codeine #3 Tablet), 1 TAB ORAL Q4H PRN for For Pain, (Reported) [[facility] pharmacy to dose], 1 EA MISC DAILY PRN Patient History Healthcare decision maker N Resuscitation status Full Code Advanced Directive on File Past Medical/Surgical History Past Medical/Surgical History: (1) DVT, bilateral lower limbs (2) Factor 5 Leiden mutation, heterozygous (3) Gout (4) Cellulitis, leg Review of Systems Eye: Reports: no symptoms ENT: Reports: no symptoms Physical Exam General Appearance: WD/WN, no apparent distress Lines, tubes and drains: central line, PICC HEENT: normocephalic, atraumatic Neck: non-tender, normal alignment Respiratory/Chest: chest wall non-tender, lungs clear Breasts: no masses Cardiovascular/Chest: normal rate Abdomen: normal bowel sounds Last 24 Hour Vital Signs Date Time Temp Pulse Resp B/P (MAP) Pulse Ox O2 Delivery O2 Flow Rate FiO2 02/17/17 11:55 96.3 77 18 135/67 99 Room Air 02/17/17 08:07 98.1 78 18 116/73 97 Room Air 02/17/17 04:00 97.5 80 20 124/67 95 Room Air 02/17/17 04:00 90 02/17/17 00:46 98.1 77 20 120/47 95 Room Air 02/17/17 00:00 80 02/16/17 21:06 105/70 02/16/17 20:00 83 02/16/17 20:00 97.3 82 20 97/50 96 Room Air 02/16/17 18:39 96.8 81 18 102/36 100 Room Air 02/16/17 18:31 78 02/16/17 18:10 68 15 131/62 100 Room Air 02/16/17 17:35 109/60 02/16/17 16:12 82 16 Room Air 02/16/17 16:09 97.7 71 16 132/40 99 Room Air 02/16/17 14:11 97.7 82 16 138/78 99 Room Air Intake and Output 02/17/17 02/18/17 19:00 07:00 Intake Total 360 ml Output Total 150 ml Balance 210 ml Intake Oral 360 ml Output Urine Total 150 ml Laboratory Tests Test 02/16/17 15:10 02/17/17 10:50 White Blood Count 12.2 K/UL (4.8-10.8) H 13.5 K/UL (4.8-10.8) H Red Blood Count 3.95 M/UL (4.20-5.40) L 4.33 M/UL (4.20-5.40) Hemoglobin 10.2 G/DL (12.0-16.0) L 10.6 G/DL (12.0-16.0) L Hematocrit 33.2 % (37.0-47.0) L 35.8 % (37.0-47.0) L Mean Corpuscular Volume 84 FL (80-99) 83 FL (80-99) Mean Corpuscular Hemoglobin 25.8 PG (27.0-31.0) L 24.5 PG (27.0-31.0) L Mean Corpuscular Hemoglobin Concent 30.6 G/DL (32.0-36.0) L 29.6 G/DL (32.0-36.0) L Red Cell Distribution Width 14.8 % (11.6-14.8) 14.9 % (11.6-14.8) H Platelet Count 243 K/UL (150-450) 233 K/UL (150-450) Mean Platelet Volume 6.5 FL (6.5-10.1) 6.9 FL (6.5-10.1) Neutrophils (%) (Auto) 73.1 % (45.0-75.0) 78.4 % (45.0-75.0) H Lymphocytes (%) (Auto) 14.9 % (20.0-45.0) L 12.0 % (20.0-45.0) L Monocytes (%) (Auto) 5.9 % (1.0-10.0) 5.4 % (1.0-10.0) Eosinophils (%) (Auto) 4.9 % (0.0-3.0) H 3.5 % (0.0-3.0) H Basophils (%) (Auto) 1.3 % (0.0-2.0) 0.7 % (0.0-2.0) Prothrombin Time 10.3 SEC (9.30-11.50) Prothromb Time International Ratio 1.0 (0.9-1.1) Sodium Level 139 mEQ/L (135-145) 141 mEQ/L (135-145) Potassium Level 3.8 mEQ/L (3.4-4.9) 4.0 mEQ/L (3.4-4.9) Chloride Level 99 mEQ/L (98-107) 98 mEQ/L (98-107) Carbon Dioxide Level 31 mEQ/L (20-30) H 32 mEQ/L (20-30) H Anion Gap 9 (5-15) 11 (5-15) Blood Urea Nitrogen 17 mg/dL (7-23) 15 mg/dL (7-23) Creatinine 0.9 mg/dL (0.5-0.9) 0.6 mg/dL (0.5-0.9) Estimat Glomerular Filtration Rate > 60 mL/min (>60) > 60 mL/min (>60) Glucose Level 106 mg/dL (74-106) 91 mg/dL (74-106) Calcium Level 8.7 mg/dL (8.6-10.2) 8.8 mg/dL (8.6-10.2) Total Bilirubin < 0.2 mg/dL (0.0-1.2) 0.3 mg/dL (0.0-1.2) Aspartate Amino Transf (AST/SGOT) 11 U/L (5-40) 11 U/L (5-40) Alanine Aminotransferase (ALT/SGPT) 8 U/L (3-33) 8 U/L (3-33) Alkaline Phosphatase 73 U/L (35-104) 67 U/L (35-104) Total Creatine Kinase 155 U/L (26-140) H Creatine Kinase MB 2.3 ng/mL (< 3.8) Creatine Kinase MB Relative Index 1.4 Troponin I 0.017 ng/mL (0.000-0.056) 0.001 ng/mL (0.000-0.056) Pro-B-Type Natriuretic Peptide 95 pg/mL (0-125) Total Protein 7.4 g/dL (6.6-8.7) 9.2 g/dL (6.6-8.7) H Albumin 3.3 g/dL (3.5-5.2) L 3.4 g/dL (3.5-5.2) L Globulin 4.1 g/dL 5.8 g/dL Albumin/Globulin Ratio 0.8 (1.0-2.7) L 0.5 (1.0-2.7) L Phosphorus Level 4.4 mg/dL (2.5-4.8) Magnesium Level 1.9 mg/dL (1.7-2.5) Height (Feet): 6 Height (Inches): 1.00 Weight (Pounds): 449 Medications Current Medications Medications (Trade) Dose Ordered Sig/Key Route PRN Reason Start Time Stop Time Status Last Admin Dose Admin Acetaminophen (Tylenol) 650 mg Q4H PRN ORAL Mild Pain (Pain Scale 1-3) 02/16/17 19:15 03/18/17 19:14 02/17/17 00:25 Acetaminophen (Tylenol) 650 mg Q4H PRN ORAL fever 02/16/17 19:15 03/18/17 19:14 Acetaminophen (Tylenol) 650 mg Q4H PRN RECTAL Mild Pain (Pain Scale 1-3) 02/16/17 19:15 03/18/17 19:14 Acetaminophen/ Codeine Phosphate (Tylenol #3) 1 tab Q4H PRN ORAL FOR MODERATE PAIN 02/16/17 19:00 02/23/17 18:59 Acetaminophen/ Codeine Phosphate (Tylenol #3) 2 tab Q6H PRN ORAL SEVERE PAIN 02/16/17 19:00 02/23/17 18:59 Acetaminophen/ Codeine Phosphate (Tylenol #4) 1 ea Q6H PRN ORAL for severe breakthru pain 02/16/17 19:15 02/23/17 19:14 Apixaban (Eliquis) 5 mg BID ORAL 02/17/17 09:00 03/19/17 08:59 02/17/17 09:33 Aspirin (ASA) 81 mg DAILY ORAL 02/17/17 09:00 03/19/17 08:59 02/17/17 09:34 Bisacodyl (Dulcolax) 10 mg DAILYPRN PRN RECTAL Constipation 02/16/17 19:15 03/18/17 19:14 Dextrose (Dextrose 50%) STAT PRN IV Hypoglycemia 02/16/17 19:15 03/18/17 19:14 Docusate Sodium (Colace) 100 mg EVERY 12 HOURS ORAL 02/16/17 21:00 03/18/17 20:59 02/17/17 09:34 Furosemide (Lasix) 20 mg BID ORAL 02/16/17 19:45 03/18/17 19:44 02/17/17 09:33 Hydromorphone HCl (Dilaudid) 0.5 mg Q6HR PRN IVP Severe Pain (Pain Scale 7-10) 02/17/17 08:30 02/24/17 08:29 02/17/17 09:33 Magnesium Hydroxide (Mom) 30 ml HSPRN PRN ORAL Constipation 02/16/17 19:15 03/18/17 19:14 Nitroglycerin (Ntg) 0.4 mg Q5M PRN SL Prn Chest Pain 02/16/17 17:15 03/18/17 17:14 02/16/17 17:35 Ondansetron HCl (Zofran) 4 mg Q4HR PRN IVP Nausea & Vomiting 02/17/17 08:30 03/19/17 08:29 02/17/17 09:33 Polyethylene Glycol (Miralax) 17 gm DAILYPRN PRN ORAL Constipation 02/16/17 19:15 03/18/17 19:14 Assessment/Plan Problem List: (1) ACS (acute coronary syndrome) ICD Codes: I24.9 - Acute ischemic heart disease, unspecified SNOMED: 546828165 (2) Atypical psychosis ICD Codes: F29 - Atypical psychosis SNOMED: 49068315 (3) Gout ICD Codes: M10.9 - Gout, unspecified SNOMED: 25460083 (4) HTN (hypertension) ICD Codes: I10 - Essential (primary) hypertension SNOMED: 73843858 (5) Factor 5 Leiden mutation, heterozygous ICD Codes: D68.8 - Factor 5 Leiden mutation, heterozygous SNOMED: 803236424 (6) Obesity ICD Codes: E66.9 - Obesity, unspecified SNOMED: 616744708 Assessment/Plan serial ekg, troponin echo cardiology to see Hem and ID to see. VIKTORIYA CONNOR Feb 17, 2017 12:32
[2017-02-17] MEDS: Dyna-Hex 2% Top Sol 2oz TOPIC SCH (15:11)
[2017-02-17 15:48] VITALS: BP 138/70
--- NOTE | 2017-02-17 15:50 | Cardiology Progress Note ---
Assessment/Plan Assessment/Plan atypical chest pain reproducible on palp obeisty dvt hx ekg neg 2 set of enzyme neg awit repeat ekg adn 3rd set unless abn willl hodl of on furhte testign may have had d stress echo recently ?? per er note i am not able to find [id number] Objective Last 24 Hour Vital Signs Date Time Temp Pulse Resp B/P (MAP) Pulse Ox O2 Delivery O2 Flow Rate FiO2 02/17/17 12:00 75 02/17/17 11:55 96.3 77 18 135/67 99 Room Air 02/17/17 08:07 98.1 78 18 116/73 97 Room Air 02/17/17 08:00 80 02/17/17 04:00 97.5 80 20 124/67 95 Room Air 02/17/17 04:00 90 02/17/17 00:46 98.1 77 20 120/47 95 Room Air 02/17/17 00:00 80 02/16/17 21:06 105/70 02/16/17 20:00 83 02/16/17 20:00 97.3 82 20 97/50 96 Room Air 02/16/17 18:39 96.8 81 18 102/36 100 Room Air 02/16/17 18:31 78 02/16/17 18:10 68 15 131/62 100 Room Air 02/16/17 17:35 109/60 02/16/17 16:12 82 16 Room Air 02/16/17 16:09 97.7 71 16 132/40 99 Room Air Intake and Output 02/17/17 02/18/17 19:00 07:00 Intake Total 510 ml Output Total 500 ml Balance 10 ml Intake Oral 510 ml Output Urine Total 500 ml Laboratory Tests Test 02/17/17 10:50 White Blood Count 13.5 K/UL (4.8-10.8) H Red Blood Count 4.33 M/UL (4.20-5.40) Hemoglobin 10.6 G/DL (12.0-16.0) L Hematocrit 35.8 % (37.0-47.0) L Mean Corpuscular Volume 83 FL (80-99) Mean Corpuscular Hemoglobin 24.5 PG (27.0-31.0) L Mean Corpuscular Hemoglobin Concent 29.6 G/DL (32.0-36.0) L Red Cell Distribution Width 14.9 % (11.6-14.8) H Platelet Count 233 K/UL (150-450) Mean Platelet Volume 6.9 FL (6.5-10.1) Neutrophils (%) (Auto) 78.4 % (45.0-75.0) H Lymphocytes (%) (Auto) 12.0 % (20.0-45.0) L Monocytes (%) (Auto) 5.4 % (1.0-10.0) Eosinophils (%) (Auto) 3.5 % (0.0-3.0) H Basophils (%) (Auto) 0.7 % (0.0-2.0) Sodium Level 141 mEQ/L (135-145) Potassium Level 4.0 mEQ/L (3.4-4.9) Chloride Level 98 mEQ/L (98-107) Carbon Dioxide Level 32 mEQ/L (20-30) H Anion Gap 11 (5-15) Blood Urea Nitrogen 15 mg/dL (7-23) Creatinine 0.6 mg/dL (0.5-0.9) Estimat Glomerular Filtration Rate > 60 mL/min (>60) Glucose Level 91 mg/dL (74-106) Calcium Level 8.8 mg/dL (8.6-10.2) Phosphorus Level 4.4 mg/dL (2.5-4.8) Magnesium Level 1.9 mg/dL (1.7-2.5) Total Bilirubin 0.3 mg/dL (0.0-1.2) Aspartate Amino Transf (AST/SGOT) 11 U/L (5-40) Alanine Aminotransferase (ALT/SGPT) 8 U/L (3-33) Alkaline Phosphatase 67 U/L (35-104) Troponin I 0.001 ng/mL (0.000-0.056) Total Protein 9.2 g/dL (6.6-8.7) H Albumin 3.4 g/dL (3.5-5.2) L Globulin 5.8 g/dL Albumin/Globulin Ratio 0.5 (1.0-2.7) L SADIE GONSALEZ Feb 17, 2017 15:50
[2017-02-17 20:00] VITALS: BP 135/65
[2017-02-18] VITALS (7 sets, daily range): BP systolic 102–143; BP diastolic 43–88
[2017-02-18] MEDS: Hydromorphone 0.5mg/0.5ml inj IVP PRN ×4 (00:13→18:31)
--- NOTE | 2017-02-18 02:15 | Consultation ---
DATE OF CONSULTATION: 02/17/2017 CARDIOLOGY CONSULTATION CONSULTING PHYSICIAN: Jose Carter M.D. REFERRING PHYSICIAN: Miguel Hernandez M.D. REASON FOR REFERRAL: Chest pain. History Of Present Illness: This is a 56-year-old female, who has a history of multiple medical problems as delineated below. The patient presented to the hospital because of sensation that a ball was rolling on the left side of her chest and would go around the back and that sensation would get worse when she is touched in that area. It lasted a few hours. So, she eventually was brought to the emergency room and was subsequently admitted. She states that the pain is mainly resolved, but she has some soreness still in that area, especially if that area is touched. There is no change in the pain with coughing or taking a deep breath or moving around. This occurred while she was sitting down. She has some episodes of shortness of breath on exertion. She uses three pillows for feeling comfortable. No PND. No dizziness or lightheadedness on standing. No heart pounding or palpitations. Past Medical History: Positive for history of atypical chest pain, nonischemic dobutamine stress echo that was performed on prior occasions last month, and she does have a history of deep venous thrombosis. She has got a history of cellulitis, hypertension, morbid obesity, gout, and MRSA of the left leg wound. ALLERGIES: To sulfa. Social History: She does not smoke or drink alcoholic beverages. She is a resident of convalescent facility at the present time. Review Of Systems: Gastrointestinal: She has had some nausea and vomiting. Genitourinary: Negative. Pulmonary: Negative. Constitutional: Negative. Neurologic: Numbness and tingling sensation in her feet and her fingers. PHYSICAL EXAMINATION: General: Shows to be morbidly obese elderly female, in no apparent respiratory distress. Neck: Supple. No jugular venous distention. No abdominojugular reflux noted. LUNGS: Appear to be clear to auscultation and percussion. Cardiac: S1 is normal. S2 is normal. Regular rate and rhythm. No heaves, thrills, gallops, or rubs are noted. ABDOMEN: Soft and nontender. Positive bowel sounds. Extremities: Chronic venous stasis changes and edema is noted bilaterally. Chest Wall: Tender to palpation. It seems to reproduce the same pain as the patient was experiencing prior to admission. Neurological: She is awake, alert, responsive, and in no respiratory distress whatsoever. Laboratory And Diagnostic Data: Her laboratory values shows a white count of 13.5 with hemoglobin 10.6 and a platelet count of 233,000. Her sodium is 141, potassium 4.0, chloride 98, bicarbonate 32, BUN of 15, creatinine 0.6, glucose of 91. Calcium is normal. Two sets of cardiac enzymes are negative on the new assay 0.017 and 0.001. Natriuretic peptide is only 95. Albumin 3.5. Liver function tests are otherwise unremarkable. Coags, INR 1.0. Urinalysis shows 1+ leukocyte esterase, 0 to 2 WBCs and RBCs. A chest x-ray performed in the emergency room shows no acute cardiopulmonary processes. ASSESSMENT AND PLAN: 1. Atypical chest pain reproducible on palpation of the chest wall. 2. Morbid obesity. 3. History of deep venous thrombosis. 4. History of hypertension. 5. History of cellulitis. Dr. Hernandez, this patient was seen in cardiac consultation. The patient's cardiac enzymes are both negative so far. She has had an electrocardiogram that was performed showing basically no significant ST-T abnormalities. Her pain seems to be reproducible on palpation of the chest wall and in light of the fact that she has two sets of cardiac enzymes that were negative and no electrocardiographic abnormalities and the description of the pain that she provides, I will probably hold off on further workup of this pain. There is a notation in the emergency room physician's chart that she had a dobutamine stress echo that supposedly was normal last month, although I am not able to find any of those reports at this time, but certainly I do not think it needs to be repeated. Another EKG and another set of cardiac enzymes are pending at this time. Jose Carter M.D. DR: Felipe JOB#: [id number] CC:
[2017-02-18 05:20] LABS: BASOPHILS % (AUTO) 1.1 % (0.0-2.0); EOSINOPHILS % (AUTO) 3.9 % (0.0-3.0); LYMPHOCYTES % (AUTO) 17.1 % (20.0-45.0); MEAN CORPUSCULAR HEMOGLOBIN 25.8 PG (27.0-31.0); MEAN CORPUSCULAR VOLUME 83 FL (80-99); MONOCYTES % (AUTO) 5.2 % (1.0-10.0); NEUTROPHILS % (AUTO) 72.7 % (45.0-75.0); PLATELET COUNT 204 K/UL (150-450); RED BLOOD COUNT 3.88 M/UL (4.20-5.40); WHITE BLOOD COUNT 14.7 K/UL (4.8-10.8)
[2017-02-18 05:43] LABS: ANION GAP 13 (5-15); CALCIUM 8.5 mg/dL (8.6-10.2); CARBON DIOXIDE 30 mEQ/L (20-30); CHLORIDE 96 mEQ/L (98-107); CREATININE 0.8 mg/dL (0.5-0.9); GLOMERULAR FILTRATION RATE > 60 mL/min (>60); HEMOLYSIS 1; POTASSIUM 3.7 mEQ/L (3.4-4.9); SODIUM 139 mEQ/L (135-145)
[2017-02-18] MEDS: Aspirin Baby 81mg ORAL SCH (08:45)
[2017-02-18] MEDS: Dyna-Hex 2% Top Sol 2oz TOPIC SCH (08:45)
[2017-02-18] MEDS: Docusate 100mg cap ORAL SCH ×2 (08:45→20:22)
[2017-02-18] MEDS: Eliquis 2.5mg tablet ORAL SCH ×2 (08:45→18:31)
--- NOTE | 2017-02-18 11:42 | Pulmonology Progress Note ---
Assessment/Plan Problems: (1) ACS (acute coronary syndrome) (2) Atypical psychosis (3) Gout (4) HTN (hypertension) (5) Factor 5 Leiden mutation, heterozygous (6) Obesity (7) Leukocytosis Assessment/Plan urine analysis urine culture start on empiric levo f/u cardiology recommendations med/surg if ok with cardio Hem evaluation. Subjective ROS Limited/Unobtainable: No Interval Events: no new complains Allergies: Coded Allergies: SULFA (SULFONAMIDE ANTIBIOTICS) (Unverified Allergy, Unknown, 05/02/15) allergy history per Dr. Jones Objective Last 24 Hour Vital Signs Date Time Temp Pulse Resp B/P (MAP) Pulse Ox O2 Delivery O2 Flow Rate FiO2 02/18/17 11:27 96.8 84 18 115/56 97 02/18/17 08:00 79 02/18/17 07:55 96.6 81 18 133/79 98 Room Air 02/18/17 04:00 85 02/18/17 04:00 97.9 88 23 102/43 100 Room Air 02/18/17 00:00 76 02/18/17 00:00 97.9 88 20 134/88 98 Room Air 02/17/17 20:00 97.7 86 20 135/65 98 Room Air 02/17/17 20:00 86 02/17/17 16:00 73 02/17/17 15:48 98.1 76 18 138/70 96 Room Air 02/17/17 12:00 75 02/17/17 11:55 96.3 77 18 135/67 99 Room Air Intake and Output 02/18/17 02/19/17 19:00 07:00 Intake Total 370 ml Output Total 200 ml Balance 170 ml Intake Oral 370 ml Output Urine Total 200 ml General Appearance: WD/WN HEENT: normocephalic, atraumatic Respiratory/Chest: chest wall non-tender, lungs clear Breasts: no masses Cardiovascular: normal peripheral pulses, regular rhythm Abdomen: normal bowel sounds, soft, non tender Extremities: no clubbing Skin: no ulcers 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, abnormal gait Lymphatic: no neck adenopathy Laboratory Tests 02/18/17 04:20: White Blood Count 14.7H, Red Blood Count 3.88L, Hemoglobin 10.0L, Hematocrit 32.4L, Mean Corpuscular Volume 83, Mean Corpuscular Hemoglobin 25.8L, Mean Corpuscular Hemoglobin Concent 31.0L, Red Cell Distribution Width 15.0H, Platelet Count 204, Mean Platelet Volume 7.0, Neutrophils (%) (Auto) 72.7, Lymphocytes (%) (Auto) 17.1L, Monocytes (%) (Auto) 5.2, Eosinophils (%) (Auto) 3.9H, Basophils (%) (Auto) 1.1, Sodium Level 139, Potassium Level 3.7, Chloride Level 96L, Carbon Dioxide Level 30, Anion Gap 13, Blood Urea Nitrogen 17, Creatinine 0.8, Estimat Glomerular Filtration Rate > 60, Glucose Level 123H, Calcium Level 8.5L, Troponin I 0.000 Current Medications Medications (Trade) Dose Ordered Sig/Key Route PRN Reason Start Time Stop Time Status Last Admin Dose Admin Acetaminophen (Tylenol) 650 mg Q4H PRN ORAL Mild Pain (Pain Scale 1-3) 02/16/17 19:15 03/18/17 19:14 02/18/17 01:49 Acetaminophen (Tylenol) 650 mg Q4H PRN ORAL fever 02/16/17 19:15 03/18/17 19:14 Acetaminophen (Tylenol) 650 mg Q4H PRN RECTAL Mild Pain (Pain Scale 1-3) 02/16/17 19:15 03/18/17 19:14 Acetaminophen/ Codeine Phosphate (Tylenol #3) 1 tab Q4H PRN ORAL FOR MODERATE PAIN 02/16/17 19:00 02/23/17 18:59 Acetaminophen/ Codeine Phosphate (Tylenol #3) 2 tab Q6H PRN ORAL SEVERE PAIN 02/16/17 19:00 02/23/17 18:59 Acetaminophen/ Codeine Phosphate (Tylenol #4) 1 ea Q6H PRN ORAL for severe breakthru pain 02/16/17 19:15 02/23/17 19:14 Apixaban (Eliquis) 5 mg BID ORAL 02/17/17 09:00 03/19/17 08:59 02/18/17 08:45 Aspirin (ASA) 81 mg DAILY ORAL 02/17/17 09:00 03/19/17 08:59 02/18/17 08:45 Bisacodyl (Dulcolax) 10 mg DAILYPRN PRN RECTAL Constipation 02/16/17 19:15 03/18/17 19:14 Chlorhexidine Gluconate (Priti-Hex 2%) 1 applic DAILY@2000 TOPIC 02/19/17 20:00 03/21/17 19:59 Dextrose (Dextrose 50%) STAT PRN IV Hypoglycemia 02/16/17 19:15 03/18/17 19:14 Docusate Sodium (Colace) 100 mg EVERY 12 HOURS ORAL 02/16/17 21:00 03/18/17 20:59 02/18/17 08:45 Furosemide (Lasix) 20 mg BID ORAL 02/16/17 19:45 03/18/17 19:44 02/18/17 08:45 Hydromorphone HCl (Dilaudid) 0.5 mg Q6HR PRN IVP Severe Pain (Pain Scale 7-10) 02/17/17 08:30 02/24/17 08:29 02/18/17 08:44 Magnesium Hydroxide (Mom) 30 ml HSPRN PRN ORAL Constipation 02/16/17 19:15 03/18/17 19:14 Nitroglycerin (Ntg) 0.4 mg Q5M PRN SL Prn Chest Pain 02/16/17 17:15 03/18/17 17:14 02/16/17 17:35 Ondansetron HCl (Zofran) 4 mg Q4HR PRN IVP Nausea & Vomiting 02/17/17 08:30 03/19/17 08:29 02/17/17 09:33 Polyethylene Glycol (Miralax) 17 gm DAILYPRN PRN ORAL Constipation 02/16/17 19:15 03/18/17 19:14 VIKTORIYA CONNOR Feb 18, 2017 11:42
--- NOTE | 2017-02-18 13:17 | Internal Med Progress Note ---
Subjective Date of Service: Feb 18, 2017 Physician Name Schmid,Jo Attending Physician Bj Dee MD Current Medications Medications (Trade) Dose Ordered Sig/Key Route PRN Reason Start Time Stop Time Status Last Admin Dose Admin Acetaminophen (Tylenol) 650 mg Q4H PRN ORAL Mild Pain (Pain Scale 1-3) 02/16/17 19:15 03/18/17 19:14 02/18/17 01:49 Acetaminophen (Tylenol) 650 mg Q4H PRN ORAL fever 02/16/17 19:15 03/18/17 19:14 Acetaminophen (Tylenol) 650 mg Q4H PRN RECTAL Mild Pain (Pain Scale 1-3) 02/16/17 19:15 03/18/17 19:14 Acetaminophen/ Codeine Phosphate (Tylenol #3) 1 tab Q4H PRN ORAL FOR MODERATE PAIN 02/16/17 19:00 02/23/17 18:59 Acetaminophen/ Codeine Phosphate (Tylenol #3) 2 tab Q6H PRN ORAL SEVERE PAIN 02/16/17 19:00 02/23/17 18:59 Acetaminophen/ Codeine Phosphate (Tylenol #4) 1 ea Q6H PRN ORAL for severe breakthru pain 02/16/17 19:15 02/23/17 19:14 Apixaban (Eliquis) 5 mg BID ORAL 02/17/17 09:00 03/19/17 08:59 02/18/17 08:45 Aspirin (ASA) 81 mg DAILY ORAL 02/17/17 09:00 03/19/17 08:59 02/18/17 08:45 Bisacodyl (Dulcolax) 10 mg DAILYPRN PRN RECTAL Constipation 02/16/17 19:15 03/18/17 19:14 Chlorhexidine Gluconate (Priti-Hex 2%) 1 applic DAILY@2000 TOPIC 02/19/17 20:00 03/21/17 19:59 Dextrose (Dextrose 50%) STAT PRN IV Hypoglycemia 02/16/17 19:15 03/18/17 19:14 Docusate Sodium (Colace) 100 mg EVERY 12 HOURS ORAL 02/16/17 21:00 03/18/17 20:59 02/18/17 08:45 Furosemide (Lasix) 20 mg BID ORAL 02/16/17 19:45 03/18/17 19:44 02/18/17 08:45 Hydromorphone HCl (Dilaudid) 0.5 mg Q6HR PRN IVP Severe Pain (Pain Scale 7-10) 02/17/17 08:30 02/24/17 08:29 02/18/17 08:44 Levofloxacin 100 ml @ 100 mls/hr Q24H IVPB 02/18/17 13:00 02/25/17 12:59 Magnesium Hydroxide (Mom) 30 ml HSPRN PRN ORAL Constipation 02/16/17 19:15 03/18/17 19:14 Nitroglycerin (Ntg) 0.4 mg Q5M PRN SL Prn Chest Pain 02/16/17 17:15 03/18/17 17:14 02/16/17 17:35 Ondansetron HCl (Zofran) 4 mg Q4HR PRN IVP Nausea & Vomiting 02/17/17 08:30 03/19/17 08:29 02/17/17 09:33 Polyethylene Glycol (Miralax) 17 gm DAILYPRN PRN ORAL Constipation 02/16/17 19:15 03/18/17 19:14 Allergies: Coded Allergies: SULFA (SULFONAMIDE ANTIBIOTICS) (Unverified Allergy, Unknown, 05/02/15) allergy history per Dr. Robert BAUER Limited/Unobtainable: No Constitutional: Reports: no symptoms HEENT: Reports: no symptoms Cardiovascular: Reports: chest pain Respiratory: Reports: no symptoms Gastrointestinal/Abdominal: Reports: no symptoms Genitourinary: Reports: no symptoms Neurologic/Psychiatric: Reports: no symptoms Subjective 56 YO F admitted with chest pain. Cover for Int Med-Dr Dee. Objective Last Vital Signs Date Time Temp Pulse Resp B/P (MAP) Pulse Ox O2 Delivery O2 Flow Rate FiO2 02/18/17 11:27 96.8 84 18 115/56 97 02/18/17 07:55 Room Air Laboratory Tests Test 02/18/17 04:20 White Blood Count 14.7 K/UL (4.8-10.8) H Red Blood Count 3.88 M/UL (4.20-5.40) L Hemoglobin 10.0 G/DL (12.0-16.0) L Hematocrit 32.4 % (37.0-47.0) L Mean Corpuscular Volume 83 FL (80-99) Mean Corpuscular Hemoglobin 25.8 PG (27.0-31.0) L Mean Corpuscular Hemoglobin Concent 31.0 G/DL (32.0-36.0) L Red Cell Distribution Width 15.0 % (11.6-14.8) H Platelet Count 204 K/UL (150-450) Mean Platelet Volume 7.0 FL (6.5-10.1) Neutrophils (%) (Auto) 72.7 % (45.0-75.0) Lymphocytes (%) (Auto) 17.1 % (20.0-45.0) L Monocytes (%) (Auto) 5.2 % (1.0-10.0) Eosinophils (%) (Auto) 3.9 % (0.0-3.0) H Basophils (%) (Auto) 1.1 % (0.0-2.0) Sodium Level 139 mEQ/L (135-145) Potassium Level 3.7 mEQ/L (3.4-4.9) Chloride Level 96 mEQ/L (98-107) L Carbon Dioxide Level 30 mEQ/L (20-30) Anion Gap 13 (5-15) Blood Urea Nitrogen 17 mg/dL (7-23) Creatinine 0.8 mg/dL (0.5-0.9) Estimat Glomerular Filtration Rate > 60 mL/min (>60) Glucose Level 123 mg/dL (74-106) H Calcium Level 8.5 mg/dL (8.6-10.2) L Troponin I 0.000 ng/mL (0.000-0.056) Intake and Output 02/18/17 02/19/17 19:00 07:00 Intake Total 730 ml Output Total 500 ml Balance 230 ml Intake Oral 730 ml Output Urine Total 500 ml Objective General Appearance: alert, mild distress, obese EENT: PERRL/EOMI, normal ENT inspection, TMs normal Neck: non-tender, normal alignment, supple, normal inspection Cardiovascular: normal peripheral pulses, normal rate, regular rhythm, no gallop/murmur, no JVD Respiratory/Chest: chest wall non-tender, lungs clear, normal breath sounds, no respiratory distress, no accessory muscle use Abdomen: normal bowel sounds, non tender, soft, no organomegaly, no mass Extremities: normal range of motion, non-tender 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 Serial troponin levels. Await cardiolite stress test (2) HTN (hypertension) (3) Morbid obesity (4) Gout (5) DVT, bilateral lower limbs Assessment & Plan: Continue eliquis (6) Factor 5 Leiden mutation, heterozygous (7) Factor V Leiden Assessment & Plan: Continue eliquis Status: not improved JO SCHMID Feb 18, 2017 13:17
--- NOTE | 2017-02-18 15:09 | Infectious Diseases Prog Note ---
Assessment/Plan Assessment/Plan ID consult dictated # [id number] Subjective Allergies: Coded Allergies: SULFA (SULFONAMIDE ANTIBIOTICS) (Unverified Allergy, Unknown, 05/02/15) allergy history per Dr. Jones Objective Vital Signs Last 24 Hour Vital Signs Date Time Temp Pulse Resp B/P (MAP) Pulse Ox O2 Delivery O2 Flow Rate FiO2 02/18/17 11:27 96.8 84 18 115/56 97 02/18/17 08:00 79 02/18/17 07:55 96.6 81 18 133/79 98 Room Air 02/18/17 04:00 85 02/18/17 04:00 97.9 88 23 102/43 100 Room Air 02/18/17 00:00 76 02/18/17 00:00 97.9 88 20 134/88 98 Room Air 02/17/17 20:00 97.7 86 20 135/65 98 Room Air 02/17/17 20:00 86 02/17/17 16:00 73 02/17/17 15:48 98.1 76 18 138/70 96 Room Air Height (Feet): 6 Height (Inches): 1.00 Weight (Pounds): 449 Laboratory Tests Test 02/18/17 04:20 White Blood Count 14.7 K/UL (4.8-10.8) H Red Blood Count 3.88 M/UL (4.20-5.40) L Hemoglobin 10.0 G/DL (12.0-16.0) L Hematocrit 32.4 % (37.0-47.0) L Mean Corpuscular Volume 83 FL (80-99) Mean Corpuscular Hemoglobin 25.8 PG (27.0-31.0) L Mean Corpuscular Hemoglobin Concent 31.0 G/DL (32.0-36.0) L Red Cell Distribution Width 15.0 % (11.6-14.8) H Platelet Count 204 K/UL (150-450) Mean Platelet Volume 7.0 FL (6.5-10.1) Neutrophils (%) (Auto) 72.7 % (45.0-75.0) Lymphocytes (%) (Auto) 17.1 % (20.0-45.0) L Monocytes (%) (Auto) 5.2 % (1.0-10.0) Eosinophils (%) (Auto) 3.9 % (0.0-3.0) H Basophils (%) (Auto) 1.1 % (0.0-2.0) Sodium Level 139 mEQ/L (135-145) Potassium Level 3.7 mEQ/L (3.4-4.9) Chloride Level 96 mEQ/L (98-107) L Carbon Dioxide Level 30 mEQ/L (20-30) Anion Gap 13 (5-15) Blood Urea Nitrogen 17 mg/dL (7-23) Creatinine 0.8 mg/dL (0.5-0.9) Estimat Glomerular Filtration Rate > 60 mL/min (>60) Glucose Level 123 mg/dL (74-106) H Calcium Level 8.5 mg/dL (8.6-10.2) L Troponin I 0.000 ng/mL (0.000-0.056) Current Medications Medications (Trade) Dose Ordered Sig/Key Route PRN Reason Start Time Stop Time Status Last Admin Dose Admin Acetaminophen (Tylenol) 650 mg Q4H PRN ORAL Mild Pain (Pain Scale 1-3) 02/16/17 19:15 03/18/17 19:14 02/18/17 01:49 Acetaminophen (Tylenol) 650 mg Q4H PRN ORAL fever 02/16/17 19:15 03/18/17 19:14 Acetaminophen (Tylenol) 650 mg Q4H PRN RECTAL Mild Pain (Pain Scale 1-3) 02/16/17 19:15 03/18/17 19:14 Acetaminophen/ Codeine Phosphate (Tylenol #3) 1 tab Q4H PRN ORAL FOR MODERATE PAIN 02/16/17 19:00 02/23/17 18:59 Acetaminophen/ Codeine Phosphate (Tylenol #3) 2 tab Q6H PRN ORAL SEVERE PAIN 02/16/17 19:00 02/23/17 18:59 Acetaminophen/ Codeine Phosphate (Tylenol #4) 1 ea Q6H PRN ORAL for severe breakthru pain 02/16/17 19:15 02/23/17 19:14 Apixaban (Eliquis) 5 mg BID ORAL 02/17/17 09:00 03/19/17 08:59 02/18/17 08:45 Aspirin (ASA) 81 mg DAILY ORAL 02/17/17 09:00 03/19/17 08:59 02/18/17 08:45 Bisacodyl (Dulcolax) 10 mg DAILYPRN PRN RECTAL Constipation 02/16/17 19:15 03/18/17 19:14 Chlorhexidine Gluconate (Priti-Hex 2%) 1 applic DAILY@2000 TOPIC 02/19/17 20:00 03/21/17 19:59 Dextrose (Dextrose 50%) STAT PRN IV Hypoglycemia 02/16/17 19:15 03/18/17 19:14 Docusate Sodium (Colace) 100 mg EVERY 12 HOURS ORAL 02/16/17 21:00 03/18/17 20:59 02/18/17 08:45 Furosemide (Lasix) 20 mg BID ORAL 02/16/17 19:45 03/18/17 19:44 02/18/17 08:45 Hydromorphone HCl (Dilaudid) 0.5 mg Q6HR PRN IVP Severe Pain (Pain Scale 7-10) 02/17/17 08:30 02/24/17 08:29 02/18/17 14:21 Levofloxacin 100 ml @ 100 mls/hr Q24H IVPB 02/18/17 13:00 02/25/17 12:59 02/18/17 13:38 Magnesium Hydroxide (Mom) 30 ml HSPRN PRN ORAL Constipation 02/16/17 19:15 03/18/17 19:14 Nitroglycerin (Ntg) 0.4 mg Q5M PRN SL Prn Chest Pain 02/16/17 17:15 03/18/17 17:14 02/16/17 17:35 Ondansetron HCl (Zofran) 4 mg Q4HR PRN IVP Nausea & Vomiting 02/17/17 08:30 03/19/17 08:29 02/17/17 09:33 Polyethylene Glycol (Miralax) 17 gm DAILYPRN PRN ORAL Constipation 02/16/17 19:15 03/18/17 19:14 KARAN AGUILAR Feb 18, 2017 15:09
[2017-02-18] MEDS ORDERED: NS 275ml ONE (15:46)
[2017-02-18] MEDS ORDERED: Tubing IV Secondary IV ONE (15:46)
[2017-02-18 16:52] LABS: APPEARANCE,URINE CLEAR; KETONES,URINE NEGATIVE (NEGATIVE); LEUKOCYTE ESTERASE ,URINE NEGATIVE (NEGATIVE); NITRITE,URINE NEGATIVE (NEGATIVE); PH,URINE 6 (4.5-8.0); PROTEIN,URINE NEGATIVE (NEGATIVE); UROBILINOGEN,URINE NORMAL MG/DL (0.0-1.0)
[2017-02-18 17:03] LABS: BACTERIA,URINE FEW /HPF; RBC,URINE 0-2 /HPF (0 - 2); SQUAMOUS EPITHELIAL CELL,UR FEW /LPF (NONE/OCC); WBC,URINE 0-2 /HPF (0 - 2)
--- NOTE | 2017-02-18 19:31 | Cardiology Progress Note ---
Assessment/Plan Assessment/Plan 1. Atypical chest pain reproducible on palpation of the chest wall. 2. Morbid obesity. 3. History of deep venous thrombosis. 4. History of hypertension. 5. History of cellulitis. all trop neg dobut stressechop 06/2016 neg ok to ut home from [facility] Subjective Cardiovascular: Denies: chest pain Respiratory: Denies: shortness of breath Gastrointestinal/Abdominal: Denies: abdominal pain Genitourinary: Denies: burning Objective Last 24 Hour Vital Signs Date Time Temp Pulse Resp B/P (MAP) Pulse Ox O2 Delivery O2 Flow Rate FiO2 02/18/17 16:00 79 02/18/17 15:27 97.5 81 18 118/66 96 Bi-pap 02/18/17 12:00 84 02/18/17 11:27 96.8 84 18 115/56 97 02/18/17 08:00 79 02/18/17 07:55 96.6 81 18 133/79 98 Room Air 02/18/17 04:00 85 02/18/17 04:00 97.9 88 23 102/43 100 Room Air 02/18/17 00:00 76 02/18/17 00:00 97.9 88 20 134/88 98 Room Air 02/17/17 20:00 97.7 86 20 135/65 98 Room Air 02/17/17 20:00 86 General Appearance: no apparent distress, alert, obese Neck: supple Cardiovascular: normal rate, regular rhythm Respiratory/Chest: lungs clear, normal breath sounds Abdomen: non tender, soft Extremities: moderate edema Intake and Output 02/18/17 02/19/17 19:00 07:00 Intake Total 1080 ml Output Total 1100 ml Balance -20 ml Intake Oral 980 ml IV Total 100 ml Output Urine Total 1100 ml Laboratory Tests Test 02/18/17 04:20 02/18/17 14:28 White Blood Count 14.7 K/UL (4.8-10.8) H Red Blood Count 3.88 M/UL (4.20-5.40) L Hemoglobin 10.0 G/DL (12.0-16.0) L Hematocrit 32.4 % (37.0-47.0) L Mean Corpuscular Volume 83 FL (80-99) Mean Corpuscular Hemoglobin 25.8 PG (27.0-31.0) L Mean Corpuscular Hemoglobin Concent 31.0 G/DL (32.0-36.0) L Red Cell Distribution Width 15.0 % (11.6-14.8) H Platelet Count 204 K/UL (150-450) Mean Platelet Volume 7.0 FL (6.5-10.1) Neutrophils (%) (Auto) 72.7 % (45.0-75.0) Lymphocytes (%) (Auto) 17.1 % (20.0-45.0) L Monocytes (%) (Auto) 5.2 % (1.0-10.0) Eosinophils (%) (Auto) 3.9 % (0.0-3.0) H Basophils (%) (Auto) 1.1 % (0.0-2.0) Sodium Level 139 mEQ/L (135-145) Potassium Level 3.7 mEQ/L (3.4-4.9) Chloride Level 96 mEQ/L (98-107) L Carbon Dioxide Level 30 mEQ/L (20-30) Anion Gap 13 (5-15) Blood Urea Nitrogen 17 mg/dL (7-23) Creatinine 0.8 mg/dL (0.5-0.9) Estimat Glomerular Filtration Rate > 60 mL/min (>60) Glucose Level 123 mg/dL (74-106) H Calcium Level 8.5 mg/dL (8.6-10.2) L Troponin I 0.000 ng/mL (0.000-0.056) Urine Color Pale yellow Urine Appearance Clear Urine pH 6 (4.5-8.0) Urine Specific [place] 1.010 (1.005-1.035) Urine Protein Negative (NEGATIVE) Urine Glucose (UA) Negative (NEGATIVE) Urine Ketones Negative (NEGATIVE) Urine Occult Blood 1+ (NEGATIVE) H Urine Nitrite Negative (NEGATIVE) Urine Bilirubin Negative (NEGATIVE) Urine Urobilinogen Normal MG/DL (0.0-1.0) Urine Leukocyte Esterase Negative (NEGATIVE) Urine RBC 0-2 /HPF (0 - 2) Urine WBC 0-2 /HPF (0 - 2) Urine Squamous Epithelial Cells Few /LPF (NONE/OCC) Urine Bacteria Few /HPF (NONE) SADIE GONSALEZ Feb 18, 2017 19:31
[2017-02-19] MEDS: Hydromorphone 0.5mg/0.5ml inj IVP PRN ×4 (01:26→22:38)
[2017-02-19 04:00] VITALS: BP 141/69
[2017-02-19 07:57] LABS: BASOPHILS % (AUTO) 0.7 % (0.0-2.0); EOSINOPHILS % (AUTO) 5.1 % (0.0-3.0); LYMPHOCYTES % (AUTO) 14.6 % (20.0-45.0); MEAN CORPUSCULAR HEMOGLOBIN 25.9 PG (27.0-31.0); MEAN CORPUSCULAR VOLUME 84 FL (80-99); MEAN PLATELET VOLUME 6.7 FL (6.5-10.1); MONOCYTES % (AUTO) 7.1 % (1.0-10.0); NEUTROPHILS % (AUTO) 72.4 % (45.0-75.0); PLATELET COUNT 199 K/UL (150-450); RED BLOOD COUNT 3.77 M/UL (4.20-5.40); RED CELL DISTRIBUTION WIDTH 14.8 % (11.6-14.8); WHITE BLOOD COUNT 12.3 K/UL (4.8-10.8)
[2017-02-19 08:02] VITALS: BP 131/79
[2017-02-19] MEDS: Docusate 100mg cap ORAL SCH ×2 (08:31→20:34)
[2017-02-19] MEDS: Aspirin Baby 81mg ORAL SCH (08:32)
[2017-02-19] MEDS: Eliquis 2.5mg tablet ORAL SCH (08:32)
--- NOTE | 2017-02-19 09:02 | Consultation ---
DATE OF CONSULTATION: 02/17/2017 HEMATOLOGY/ONCOLOGY CONSULTATION CONSULTING PHYSICIAN: Dinesh Rodríguez M.D. REQUESTING PHYSICIAN: Bj Dee M.D. REASON FOR CONSULTATION: Evaluation of DVT. IDENTIFICATION DATA: Dear Dr. Dee, The patient is a pleasant 56-year-old female with a past medical history significant for hypertension, DVT of bilateral lower extremities, on Eliquis, apixaban, chronic pain syndrome, history of bilateral lower extremity cellulitis, on antibiotics, morbid obesity, at this time presents to the ER with complaints of acute chest pain. No nausea. No sweating. left side. Cardiology service was consulted as well as pulmonary team. Hematology service was consulted given history of DVT. PAST MEDICAL HISTORY: DVT history, on apixaban, morbid obesity, history of gout, factor V Leiden deficiency, history of left lower extremity cellulitis, venous stasis, and MRSA of left lower extremity. MEDICATIONS: Tylenol, , and Uloric. ALLERGIES: Sulfa. FAMILY HISTORY: Noncontributory. REVIEW OF SYSTEMS: CONSTITUTIONAL: No fever, chills, or night sweats. SKIN: No rashes, bumps, or itching. HEENT: No headache, hearing or vision changes. BREASTS: No lumps, pain, or discharge. PULMONARY: No cough, sputum, or shortness of breath. GASTROINTESTINAL: No nausea, vomiting, or diarrhea. GENITOURINARY: No dysuria, frequency, or urgency. MUSCULOSKELETAL: No joint swelling, muscle pain, or trauma. PHYSICAL EXAMINATION: GENERAL: No acute distress. VITAL SIGNS: Reviewed. PULMONARY: Decreased breath sounds. CARDIOVASCULAR: Regular rate. No S3 or S4. ABDOMEN: Soft, nontender, and nondistended. EXTREMITIES: A 1+ edema. LABORATORY DATA: WBC 12,000, hemoglobin 10, hematocrit 33, and platelet count 257,000. INR of 1. ASSESSMENT AND PLAN: 1. Deep venous thrombosis of the bilateral lower extremities. Continue the patient on Eliquis. Currently, no evidence of progression of deep venous thrombosis. The patient had a patent deep venous system back in January 2017 and I saw her back in September. She has a factor V deficiency. 2. Anemia secondary to history of vaginal bleeding. Uterine fibroids noted. Dr. Zuniga has been seeing her in the past. 3. Anemia secondary to iron deficiency. 4. Lower extremity cellulitis. 5. Factor V Leiden deficiency. 6. Pulmonary embolism. 7. . I appreciate the consultation. Dinesh Rodríguez M.D. DR: BRITTNEY JOB#: [id number] CC:
--- NOTE | 2017-02-19 09:03 | Consultation ---
DATE OF CONSULTATION: 02/18/2017 INFECTIOUS DISEASE CONSULTATION CONSULTING PHYSICIAN: Harrison Velasco M.D. This consult is for coverage of Dr. Catherine. PRIMARY ATTENDING PHYSICIAN: Bj Dee M.D. REASON FOR CONSULT: Leukocytosis. HISTORY OF PRESENT ILLNESS: This 56-year-old female admitted on 02/16/2017 from [facility] because of chest pain. The patient had troponin and EKG that was negative. Also had leukocytosis that increased today to 14.7. PAST MEDICAL HISTORY: Significant for morbid obesity, DVT of the leg, gout, factor V Leiden deficiency, and hypotension, ALLERGIES: Allergic to sulfa drugs. MEDICATIONS: Levaquin, started today by Pulmonology, apixaban, aspirin, Zofran, hydromorphone, Colace, Lasix, Tylenol, Bisacodyl, magnesium hydroxide, Tylenol No. 3, nitroglycerin. SOCIAL HISTORY: The patient denies alcohol, drug abuse, or smoking. . Three grownup children. REVIEW OF SYSTEMS: Some back pain and pain in lower abdomen and swollen right and left lower extremity. No coughing. No nausea. No vomiting. No problems passing urine. PHYSICAL EXAMINATION: VITAL SIGNS: Temperature 96.8, pulse 86, blood pressure 116/66. GENERAL APPEARANCE: The patient is morbidly obese, awake, alert, and oriented x3. HEAD AND NECK: [place] conjunctivae. No oral lesions. Pupils reactive. HEART: S1 and S2 regular. LUNGS: Clear. ABDOMEN: Soft, obese. EXTREMITIES: Edema of lower extremities with chronic stasis dermatitis with pigmentation. NEUROLOGIC: Awake, alert, and oriented x3. LABORATORY DATA: Sodium 139, potassium 3.7, chloride 96, bicarbonate 30, BUN 17, and creatinine 0.8. Glucose 123. WBC 14.7, hemoglobin 10, hematocrit 32.4, platelets 204,000. Chest x-ray was negative. IMPRESSION: 1. Leukocytosis. We will try to rule out urinary tract infection. Urine culture was ordered. 2. The patient with stasis dermatitis of lower extremities, rule out cellulitis. 3. Morbid obesity. 4. History of deep venous thrombosis. 5. Gout. 6. Hypertension. 7. Atypical chest pain. RECOMMENDATION: Continue Levaquin. We will follow up the cultures. At the end of my exam, I thank Dr. Dee for involving me in the care of this patient. Harrison Velasco M.D. DR: AMISH JOB#: [id number] CC:
[2017-02-19 09:34] LABS: ERYTHROCYTE SEDIMENTATION RATE 105 MM/HR (0-30)
[2017-02-19 09:44] LABS: ALANINE AMINOTRANSFERASE 11 U/L (12-78); ALBUMIN/GLOBULIN RATIO 0.5 (1.0-2.7); ANION GAP 6 (5-15); ASPARTATE AMINO TRANSFERASE 14 U/L (15-37); CALCIUM 8.4 MG/DL (8.5-10.1); CARBON DIOXIDE 30 MMOL/L (21-32); CHLORIDE 98 MMOL/L (98-107); CREATININE 0.7 MG/DL (0.55-1.30); CRP QUANT 3.8 mg/dL (0.00-0.90); GLOMERULAR FILTRATION RATE > 60 mL/min (>60); MAGNESIUM 1.7 MG/DL (1.8-2.4); POTASSIUM 3.5 MMOL/L (3.5-5.1); SODIUM 134 MMOL/L (136-145); TOTAL PROTEIN 7.5 G/DL (6.4-8.2)
--- NOTE | 2017-02-19 10:05 | Infectious Diseases Prog Note ---
Assessment/Plan Assessment/Plan IMPRESSION: 1. Leukocytosis.- suspect reactive to costocondritis/CP. Patient afebrile, no localizing symptoms of infection. No cellulitis on exam -u/a neg, ucx pending -CXR no acute disease 2. The patient with stasis dermatitis of lower extremities, no cellulitis on exam 3. Atypical chest pain.-?costocondritis- reproductible by palpation -ekg, trops neg 4. History of deep venous thrombosis. 5. Gout. 6. Hypertension. 7. Morbid obesity. RECOMMENDATION: -On Levaquin # 2; will d/c as no evidence of infectious process -cont pain management -Monitor CBC/BMP, temperatures Discussed with RN. Subjective Allergies: Coded Allergies: SULFA (SULFONAMIDE ANTIBIOTICS) (Unverified Allergy, Unknown, 05/02/15) allergy history per Dr. Jones Subjective afebrile denies cough, SOB, n/v/d, dysuria CP improving Objective Vital Signs Last 24 Hour Vital Signs Date Time Temp Pulse Resp B/P (MAP) Pulse Ox O2 Delivery O2 Flow Rate FiO2 02/19/17 08:02 97.7 80 20 131/79 97 Room Air 02/19/17 04:00 97.7 78 20 141/69 100 Room Air 02/19/17 04:00 80 02/19/17 00:00 84 02/18/17 23:36 97.7 85 18 105/58 96 Room Air 02/18/17 20:24 97.7 83 18 143/84 98 Room Air 02/18/17 20:00 87 02/18/17 16:00 79 02/18/17 15:27 97.5 81 18 118/66 96 Bi-pap 02/18/17 12:00 84 02/18/17 11:27 96.8 84 18 115/56 97 Height (Feet): 6 Height (Inches): 1.00 Weight (Pounds): 449 Objective GENERAL APPEARANCE: The patient is morbidly obese, awake, alert, andoriented x3. HEAD AND NECK: [place] conjunctivae. No oral lesions. Pupils reactive. HEART: S1 and S2 regular. chest pain reproducible by palpation LUNGS: Clear. ABDOMEN: Soft, obese. EXTREMITIES: Edema of lower extremities with chronic stasis dermatitis with pigmentation, no evidence of cellulitis NEUROLOGIC: Awake, alert, and oriented x3. Microbiology Date/Time Source Procedure Growth Status 02/18/17 14:28 Urine,Clean Catch Urine Culture - Preliminary Resulted Laboratory Tests Test 02/18/17 14:28 02/19/17 06:00 Urine Color Pale yellow Urine Appearance Clear Urine pH 6 (4.5-8.0) Urine Specific [place] 1.010 (1.005-1.035) Urine Protein Negative (NEGATIVE) Urine Glucose (UA) Negative (NEGATIVE) Urine Ketones Negative (NEGATIVE) Urine Occult Blood 1+ (NEGATIVE) H Urine Nitrite Negative (NEGATIVE) Urine Bilirubin Negative (NEGATIVE) Urine Urobilinogen Normal MG/DL (0.0-1.0) Urine Leukocyte Esterase Negative (NEGATIVE) Urine RBC 0-2 /HPF (0 - 2) Urine WBC 0-2 /HPF (0 - 2) Urine Squamous Epithelial Cells Few /LPF (NONE/OCC) Urine Bacteria Few /HPF (NONE) White Blood Count 12.3 K/UL (4.8-10.8) H Red Blood Count 3.77 M/UL (4.20-5.40) L Hemoglobin 9.8 G/DL (12.0-16.0) L Hematocrit 31.5 % (37.0-47.0) L Mean Corpuscular Volume 84 FL (80-99) Mean Corpuscular Hemoglobin 25.9 PG (27.0-31.0) L Mean Corpuscular Hemoglobin Concent 31.0 G/DL (32.0-36.0) L Red Cell Distribution Width 14.8 % (11.6-14.8) Platelet Count 199 K/UL (150-450) Mean Platelet Volume 6.7 FL (6.5-10.1) Neutrophils (%) (Auto) 72.4 % (45.0-75.0) Lymphocytes (%) (Auto) 14.6 % (20.0-45.0) L Monocytes (%) (Auto) 7.1 % (1.0-10.0) Eosinophils (%) (Auto) 5.1 % (0.0-3.0) H Basophils (%) (Auto) 0.7 % (0.0-2.0) Erythrocyte Sedimentation Rate 105 MM/HR (0-30) H Sodium Level 134 MMOL/L (136-145) L Potassium Level 3.5 MMOL/L (3.5-5.1) Chloride Level 98 MMOL/L (98-107) Carbon Dioxide Level 30 MMOL/L (21-32) Anion Gap 6 (5-15) Blood Urea Nitrogen 14 mg/dL (7-18) Creatinine 0.7 MG/DL (0.55-1.30) Estimat Glomerular Filtration Rate > 60 mL/min (>60) Glucose Level 85 MG/DL (74-106) Calcium Level 8.4 MG/DL (8.5-10.1) L Phosphorus Level 4.0 MG/DL (2.5-4.9) Magnesium Level 1.7 MG/DL (1.8-2.4) L Total Bilirubin 0.2 MG/DL (0.2-1.0) Aspartate Amino Transf (AST/SGOT) 14 U/L (15-37) L Alanine Aminotransferase (ALT/SGPT) 11 U/L (12-78) L Alkaline Phosphatase 71 U/L (46-116) C-Reactive Protein, Quantitative 3.8 mg/dL (0.00-0.90) H Total Protein 7.5 G/DL (6.4-8.2) Albumin 2.6 G/DL (3.4-5.0) L Globulin 4.9 g/dL Albumin/Globulin Ratio 0.5 (1.0-2.7) L Current Medications Medications (Trade) Dose Ordered Sig/Key Route PRN Reason Start Time Stop Time Status Last Admin Dose Admin Acetaminophen (Tylenol) 650 mg Q4H PRN ORAL Mild Pain (Pain Scale 1-3) 02/16/17 19:15 03/18/17 19:14 02/18/17 01:49 Acetaminophen (Tylenol) 650 mg Q4H PRN ORAL fever 02/16/17 19:15 03/18/17 19:14 Acetaminophen (Tylenol) 650 mg Q4H PRN RECTAL Mild Pain (Pain Scale 1-3) 02/16/17 19:15 03/18/17 19:14 Acetaminophen/ Codeine Phosphate (Tylenol #3) 1 tab Q4H PRN ORAL FOR MODERATE PAIN 02/16/17 19:00 02/23/17 18:59 Acetaminophen/ Codeine Phosphate (Tylenol #3) 2 tab Q6H PRN ORAL SEVERE PAIN 02/16/17 19:00 02/23/17 18:59 Acetaminophen/ Codeine Phosphate (Tylenol #4) 1 ea Q6H PRN ORAL for severe breakthru pain 02/16/17 19:15 02/23/17 19:14 Apixaban (Eliquis) 5 mg BID ORAL 02/17/17 09:00 03/19/17 08:59 02/19/17 08:32 Aspirin (ASA) 81 mg DAILY ORAL 02/17/17 09:00 03/19/17 08:59 02/19/17 08:32 Bisacodyl (Dulcolax) 10 mg DAILYPRN PRN RECTAL Constipation 02/16/17 19:15 03/18/17 19:14 Chlorhexidine Gluconate (Priti-Hex 2%) 1 applic DAILY@2000 TOPIC 02/19/17 20:00 03/21/17 19:59 Dextrose (Dextrose 50%) STAT PRN IV Hypoglycemia 02/16/17 19:15 03/18/17 19:14 Docusate Sodium (Colace) 100 mg EVERY 12 HOURS ORAL 02/16/17 21:00 03/18/17 20:59 02/19/17 08:31 Furosemide (Lasix) 20 mg BID ORAL 02/16/17 19:45 03/18/17 19:44 02/19/17 08:32 Hydromorphone HCl (Dilaudid) 0.5 mg Q6HR PRN IVP Severe Pain (Pain Scale 7-10) 02/17/17 08:30 02/24/17 08:29 02/19/17 08:57 Levofloxacin 100 ml @ 100 mls/hr Q24H IVPB 02/18/17 13:00 02/25/17 12:59 02/18/17 13:38 Magnesium Hydroxide (Mom) 30 ml HSPRN PRN ORAL Constipation 02/16/17 19:15 03/18/17 19:14 Nitroglycerin (Ntg) 0.4 mg Q5M PRN SL Prn Chest Pain 02/16/17 17:15 03/18/17 17:14 02/16/17 17:35 Ondansetron HCl (Zofran) 4 mg Q4HR PRN IVP Nausea & Vomiting 02/17/17 08:30 03/19/17 08:29 02/17/17 09:33 Polyethylene Glycol (Miralax) 17 gm DAILYPRN PRN ORAL Constipation 02/16/17 19:15 03/18/17 19:14 Angela Sampson M.D. Feb 19, 2017 10:05
--- NOTE | 2017-02-19 10:16 | Internal Med Progress Note ---
Subjective Date of Service: Feb 19, 2017 Physician Name ChelsieJo Attending Physician Bj Dee MD Current Medications Medications (Trade) Dose Ordered Sig/Key Route PRN Reason Start Time Stop Time Status Last Admin Dose Admin Acetaminophen (Tylenol) 650 mg Q4H PRN ORAL Mild Pain (Pain Scale 1-3) 02/16/17 19:15 03/18/17 19:14 02/18/17 01:49 Acetaminophen (Tylenol) 650 mg Q4H PRN ORAL fever 02/16/17 19:15 03/18/17 19:14 Acetaminophen (Tylenol) 650 mg Q4H PRN RECTAL Mild Pain (Pain Scale 1-3) 02/16/17 19:15 03/18/17 19:14 Acetaminophen/ Codeine Phosphate (Tylenol #3) 1 tab Q4H PRN ORAL FOR MODERATE PAIN 02/16/17 19:00 02/23/17 18:59 Acetaminophen/ Codeine Phosphate (Tylenol #3) 2 tab Q6H PRN ORAL SEVERE PAIN 02/16/17 19:00 02/23/17 18:59 Acetaminophen/ Codeine Phosphate (Tylenol #4) 1 ea Q6H PRN ORAL for severe breakthru pain 02/16/17 19:15 02/23/17 19:14 Apixaban (Eliquis) 5 mg BID ORAL 02/17/17 09:00 03/19/17 08:59 02/19/17 08:32 Aspirin (ASA) 81 mg DAILY ORAL 02/17/17 09:00 03/19/17 08:59 02/19/17 08:32 Bisacodyl (Dulcolax) 10 mg DAILYPRN PRN RECTAL Constipation 02/16/17 19:15 03/18/17 19:14 Chlorhexidine Gluconate (Priti-Hex 2%) 1 applic DAILY@2000 TOPIC 02/19/17 20:00 03/21/17 19:59 Dextrose (Dextrose 50%) STAT PRN IV Hypoglycemia 02/16/17 19:15 03/18/17 19:14 Docusate Sodium (Colace) 100 mg EVERY 12 HOURS ORAL 02/16/17 21:00 03/18/17 20:59 02/19/17 08:31 Furosemide (Lasix) 20 mg BID ORAL 02/16/17 19:45 03/18/17 19:44 02/19/17 08:32 Hydromorphone HCl (Dilaudid) 0.5 mg Q6HR PRN IVP Severe Pain (Pain Scale 7-10) 02/17/17 08:30 02/24/17 08:29 02/19/17 08:57 Levofloxacin 100 ml @ 100 mls/hr Q24H IVPB 02/18/17 13:00 02/25/17 12:59 02/18/17 13:38 Magnesium Hydroxide (Mom) 30 ml HSPRN PRN ORAL Constipation 02/16/17 19:15 03/18/17 19:14 Nitroglycerin (Ntg) 0.4 mg Q5M PRN SL Prn Chest Pain 02/16/17 17:15 03/18/17 17:14 02/16/17 17:35 Ondansetron HCl (Zofran) 4 mg Q4HR PRN IVP Nausea & Vomiting 02/17/17 08:30 03/19/17 08:29 02/17/17 09:33 Polyethylene Glycol (Miralax) 17 gm DAILYPRN PRN ORAL Constipation 02/16/17 19:15 03/18/17 19:14 Allergies: Coded Allergies: SULFA (SULFONAMIDE ANTIBIOTICS) (Unverified Allergy, Unknown, 05/02/15) allergy history per Dr. Robert BAUER Limited/Unobtainable: No Constitutional: Reports: no symptoms HEENT: Reports: no symptoms Cardiovascular: Reports: no symptoms Respiratory: Reports: no symptoms Gastrointestinal/Abdominal: Reports: no symptoms Genitourinary: Reports: no symptoms Neurologic/Psychiatric: Reports: no symptoms Subjective 56 YO F admitted with chest pain. Cover for [facility] Dee. Objective Last Vital Signs Date Time Temp Pulse Resp B/P (MAP) Pulse Ox O2 Delivery O2 Flow Rate FiO2 02/19/17 08:02 97.7 80 20 131/79 97 Room Air Laboratory Tests Test 02/18/17 14:28 02/19/17 06:00 Urine Color Pale yellow Urine Appearance Clear Urine pH 6 (4.5-8.0) Urine Specific [place] 1.010 (1.005-1.035) Urine Protein Negative (NEGATIVE) Urine Glucose (UA) Negative (NEGATIVE) Urine Ketones Negative (NEGATIVE) Urine Occult Blood 1+ (NEGATIVE) H Urine Nitrite Negative (NEGATIVE) Urine Bilirubin Negative (NEGATIVE) Urine Urobilinogen Normal MG/DL (0.0-1.0) Urine Leukocyte Esterase Negative (NEGATIVE) Urine RBC 0-2 /HPF (0 - 2) Urine WBC 0-2 /HPF (0 - 2) Urine Squamous Epithelial Cells Few /LPF (NONE/OCC) Urine Bacteria Few /HPF (NONE) White Blood Count 12.3 K/UL (4.8-10.8) H Red Blood Count 3.77 M/UL (4.20-5.40) L Hemoglobin 9.8 G/DL (12.0-16.0) L Hematocrit 31.5 % (37.0-47.0) L Mean Corpuscular Volume 84 FL (80-99) Mean Corpuscular Hemoglobin 25.9 PG (27.0-31.0) L Mean Corpuscular Hemoglobin Concent 31.0 G/DL (32.0-36.0) L Red Cell Distribution Width 14.8 % (11.6-14.8) Platelet Count 199 K/UL (150-450) Mean Platelet Volume 6.7 FL (6.5-10.1) Neutrophils (%) (Auto) 72.4 % (45.0-75.0) Lymphocytes (%) (Auto) 14.6 % (20.0-45.0) L Monocytes (%) (Auto) 7.1 % (1.0-10.0) Eosinophils (%) (Auto) 5.1 % (0.0-3.0) H Basophils (%) (Auto) 0.7 % (0.0-2.0) Erythrocyte Sedimentation Rate 105 MM/HR (0-30) H Sodium Level 134 MMOL/L (136-145) L Potassium Level 3.5 MMOL/L (3.5-5.1) Chloride Level 98 MMOL/L (98-107) Carbon Dioxide Level 30 MMOL/L (21-32) Anion Gap 6 (5-15) Blood Urea Nitrogen 14 mg/dL (7-18) Creatinine 0.7 MG/DL (0.55-1.30) Estimat Glomerular Filtration Rate > 60 mL/min (>60) Glucose Level 85 MG/DL (74-106) Calcium Level 8.4 MG/DL (8.5-10.1) L Phosphorus Level 4.0 MG/DL (2.5-4.9) Magnesium Level 1.7 MG/DL (1.8-2.4) L Total Bilirubin 0.2 MG/DL (0.2-1.0) Aspartate Amino Transf (AST/SGOT) 14 U/L (15-37) L Alanine Aminotransferase (ALT/SGPT) 11 U/L (12-78) L Alkaline Phosphatase 71 U/L (46-116) C-Reactive Protein, Quantitative 3.8 mg/dL (0.00-0.90) H Total Protein 7.5 G/DL (6.4-8.2) Albumin 2.6 G/DL (3.4-5.0) L Globulin 4.9 g/dL Albumin/Globulin Ratio 0.5 (1.0-2.7) L Microbiology Date/Time Source Procedure Growth Status 02/18/17 14:28 Urine,Clean Catch Urine Culture - Preliminary Resulted Intake and Output 02/19/17 02/20/17 19:00 07:00 Intake Total 360 ml Balance 360 ml Intake Oral 360 ml # Voids 1 Objective General Appearance: alert, mild distress, obese EENT: PERRL/EOMI, normal ENT inspection, TMs normal Neck: non-tender, normal alignment, supple, normal inspection Cardiovascular: normal peripheral pulses, normal rate, regular rhythm, no gallop/murmur, no JVD Respiratory/Chest: chest wall non-tender, lungs clear, normal breath sounds, no respiratory distress, no accessory muscle use Abdomen: normal bowel sounds, non tender, soft, no organomegaly, no mass Extremities: normal range of motion, non-tender 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 Serial troponin levels neg (2) HTN (hypertension) (3) Morbid obesity (4) Gout (5) DVT, bilateral lower limbs Assessment & Plan: Continue eliquis (6) Factor 5 Leiden mutation, heterozygous (7) Factor V Leiden Assessment & Plan: Continue eliquis Status: stable Assessment/Plan Discharge planning JO SCHMID Feb 19, 2017 10:16
--- NOTE | 2017-02-19 11:03 | Diagnostic Imaging Report ---
APPROVED REPORT CPT Code: 20045 Present Symptoms Lower Extremity Pain: Bilateral BILATERAL: Imaging reveals a patent deep venous system bilaterally. There is no evidence of thrombus within the femoral, popliteal or tibial segments. The greater saphenous veins are also within normal limits. Doppler indicates normal spontaneous flow within these segments.
[2017-02-19 11:51] VITALS: BP 138/89
--- NOTE | 2017-02-19 12:48 | Pulmonology Progress Note ---
Assessment/Plan Problems: (1) ACS (acute coronary syndrome) (2) Atypical psychosis (3) Gout (4) HTN (hypertension) (5) Factor 5 Leiden mutation, heterozygous (6) Obesity (7) Leukocytosis Assessment/Plan GI evaluation for lower GI bleeding hold Apixiban and Aspirine on empiric levo f/u cardiology recommendations med/surg if ok with cardio Hem evaluation. Dr Canas called. Subjective ROS Limited/Unobtainable: No Interval Events: c/o rectal bleeding Constitutional: Reports: no symptoms HEENT: Repors: no symptoms Respiratory: Reports: no symptoms Allergies: Coded Allergies: SULFA (SULFONAMIDE ANTIBIOTICS) (Unverified Allergy, Unknown, 05/02/15) allergy history per Dr. Jones Objective Last 24 Hour Vital Signs Date Time Temp Pulse Resp B/P (MAP) Pulse Ox O2 Delivery O2 Flow Rate FiO2 02/19/17 11:51 97.5 85 20 138/89 96 Room Air 02/19/17 08:02 97.7 80 20 131/79 97 Room Air 02/19/17 08:00 92 02/19/17 04:00 97.7 78 20 141/69 100 Room Air 02/19/17 04:00 80 02/19/17 00:00 84 02/18/17 23:36 97.7 85 18 105/58 96 Room Air 02/18/17 20:24 97.7 83 18 143/84 98 Room Air 02/18/17 20:00 87 02/18/17 16:00 79 02/18/17 15:27 97.5 81 18 118/66 96 Bi-pap Intake and Output 02/19/17 02/20/17 19:00 07:00 Intake Total 360 ml Balance 360 ml Intake Oral 360 ml # Voids 1 General Appearance: WD/WN HEENT: normocephalic, atraumatic Respiratory/Chest: lungs clear, normal breath sounds Cardiovascular: normal peripheral pulses, regular rhythm, no JVD Abdomen: soft, non tender Extremities: no clubbing Skin: no ulcers 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, no motor/sensory deficits Lymphatic: no neck adenopathy Microbiology Date/Time Source Procedure Growth Status 02/18/17 14:28 Urine,Clean Catch Urine Culture - Preliminary Resulted Laboratory Tests 02/18/17 14:28: Urine Color Pale yellow, Urine Appearance Clear, Urine pH 6, Urine Specific [place] 1.010, Urine Protein Negative, Urine Glucose (UA) Negative, Urine Ketones Negative, Urine Occult Blood 1+H, Urine Nitrite Negative, Urine Bilirubin Negative, Urine Urobilinogen Normal, Urine Leukocyte Esterase Negative , Urine RBC 0-2, Urine WBC 0-2, Urine Squamous Epithelial Cells Few, Urine Bacteria Few 02/19/17 06:00: White Blood Count 12.3H, Red Blood Count 3.77L, Hemoglobin 9.8L, Hematocrit 31.5L, Mean Corpuscular Volume 84, Mean Corpuscular Hemoglobin 25.9L, Mean Corpuscular Hemoglobin Concent 31.0L, Red Cell Distribution Width 14.8, Platelet Count 199, Mean Platelet Volume 6.7, Neutrophils (%) (Auto) 72.4, Lymphocytes (%) (Auto) 14.6L, Monocytes (%) (Auto) 7.1, Eosinophils (%) (Auto) 5.1H, Basophils (%) (Auto) 0.7, Erythrocyte Sedimentation Rate 105H, Sodium Level 134L, Potassium Level 3.5, Chloride Level 98, Carbon Dioxide Level 30, Anion Gap 6, Blood Urea Nitrogen 14, Creatinine 0.7, Estimat Glomerular Filtration Rate > 60, Glucose Level 85, Calcium Level 8.4L, Phosphorus Level 4.0 , Magnesium Level 1.7L, Total Bilirubin 0.2, Aspartate Amino Transf (AST/SGOT) 14L, Alanine Aminotransferase (ALT/SGPT) 11L, Alkaline Phosphatase 71, C- Reactive Protein, Quantitative 3.8H, Total Protein 7.5, Albumin 2.6L, Globulin 4.9, Albumin/Globulin Ratio 0.5L Current Medications Medications (Trade) Dose Ordered Sig/Key Route PRN Reason Start Time Stop Time Status Last Admin Dose Admin Acetaminophen (Tylenol) 650 mg Q4H PRN ORAL Mild Pain (Pain Scale 1-3) 02/16/17 19:15 03/18/17 19:14 02/18/17 01:49 Acetaminophen (Tylenol) 650 mg Q4H PRN ORAL fever 02/16/17 19:15 03/18/17 19:14 Acetaminophen (Tylenol) 650 mg Q4H PRN RECTAL Mild Pain (Pain Scale 1-3) 02/16/17 19:15 03/18/17 19:14 Acetaminophen/ Codeine Phosphate (Tylenol #3) 1 tab Q4H PRN ORAL FOR MODERATE PAIN 02/16/17 19:00 02/23/17 18:59 Acetaminophen/ Codeine Phosphate (Tylenol #3) 2 tab Q6H PRN ORAL SEVERE PAIN 02/16/17 19:00 02/23/17 18:59 Acetaminophen/ Codeine Phosphate (Tylenol #4) 1 ea Q6H PRN ORAL for severe breakthru pain 02/16/17 19:15 02/23/17 19:14 Apixaban (Eliquis) 5 mg BID ORAL 02/17/17 09:00 03/19/17 08:59 02/19/17 08:32 Aspirin (ASA) 81 mg DAILY ORAL 02/17/17 09:00 03/19/17 08:59 02/19/17 08:32 Bisacodyl (Dulcolax) 10 mg DAILYPRN PRN RECTAL Constipation 02/16/17 19:15 03/18/17 19:14 Chlorhexidine Gluconate (Priti-Hex 2%) 1 applic DAILY@2000 TOPIC 02/19/17 20:00 03/21/17 19:59 Dextrose (Dextrose 50%) STAT PRN IV Hypoglycemia 02/16/17 19:15 03/18/17 19:14 Docusate Sodium (Colace) 100 mg EVERY 12 HOURS ORAL 02/16/17 21:00 03/18/17 20:59 02/19/17 08:31 Furosemide (Lasix) 20 mg BID ORAL 02/16/17 19:45 03/18/17 19:44 02/19/17 08:32 Hydromorphone HCl (Dilaudid) 0.5 mg Q6HR PRN IVP Severe Pain (Pain Scale 7-10) 02/17/17 08:30 02/24/17 08:29 02/19/17 08:57 Magnesium Hydroxide (Mom) 30 ml HSPRN PRN ORAL Constipation 02/16/17 19:15 03/18/17 19:14 Nitroglycerin (Ntg) 0.4 mg Q5M PRN SL Prn Chest Pain 02/16/17 17:15 03/18/17 17:14 02/16/17 17:35 Ondansetron HCl (Zofran) 4 mg Q4HR PRN IVP Nausea & Vomiting 02/17/17 08:30 03/19/17 08:29 02/17/17 09:33 Polyethylene Glycol (Miralax) 17 gm DAILYPRN PRN ORAL Constipation 02/16/17 19:15 03/18/17 19:14 VIKTORIYA CONNOR Feb 19, 2017 12:48
--- NOTE | 2017-02-19 14:09 | GI Initial Consult Note ---
History of Present Illness General Date patient seen: Feb 19, 2017 Time patient seen: 14:03 Reason for Hospitalization: Chest Pain Referring physician: VIKTORIYA LOCO Reason for Consultation: LGIB Present Illness HPI [id number] BIBEMS from SNF with left sided chest pain. "Feels like a rippling" across her left chest to left back. Worse with movement. No assoc nausea/vomiting, SOB. Denies cough, fever/chills. Echo earlier 2017: 1. Atypical chest pain, non-ischemic dobutamine stress echo with normal baseline LVEF. Per DC summary last month is on Eliquis for prior DVT but ultrasound on that visit does not show DVT GI consulted for LGIB. HPI as noted above. Pt seen on floor, awake A&Ox4 NAD with no active s/sx of N/V/D. C/o of LLQ abdominal pain. Stated she did not have bloody stools. C/o she had a dark blood clots in her urine. She presents today with leukocytosis, anemia, and hypoalbuminemia. EGD/colonoscopy performed in 2015 with unremarkable results. Endoscopy Procedure Note Indication for Procedure: anemia Procedures Performed: EGD, colonoscopy Operative Findings/Diagnosis: mild kemi - bx, colon negative ISSA MCCORMACK - Sep 02, 2015 11:09 Home Meds Active Scripts Cefepime Hcl/D5w (CEFEPIME-DEXTROSE 1 GM/50 ML) 1 Gm/50 Ml Piggyback, 1 GM IVPB EVERY 12 HOURS for 7 Days, BAG Prov:JO SCHMID 10/02/16 [[facility] pharmacy to dose] 1 EA MISC No Conflict Check, 1 EA MISC DAILY Y for 7 Days Prov:JO SCHMID 10/02/16 Reported Medications Apixaban (ELIQUIS) 5 Mg Tablet, 5 MG PO BID, TAB 02/17/17 Vancomycin Hcl/D5w (VANCOMYCIN-D5W 1 G/250 ML) 1 Gm/250 Ml Plast..bag, 1.5 GM IVPB Q12HR for 10 Days, BAG 01/30/17 Cefepime Hcl/Dextrose, Iso-Osm (CEFEPIME 2 GM INJECTION) 2 Gm/100 Ml Froz.piggy , 2 GM IV EVERY 12 HOURS for 10 Days, BAG 01/30/17 Acetaminophen With Codeine (T#3) (TYLENOL WITH CODEINE #3 TABLET) Y Tab, 1 TAB ORAL Q4H Y for For Pain, TAB 01/05/16 Acetaminophen With Codeine (T#3) (TYLENOL #3 TAB*) Y Tab, 2 TAB ORAL Q6H Y for For Pain, TAB 12/03/15 Furosemide* (LASIX*) 20 Mg Tablet, 20 MG ORAL DAILY for 2 Days, TAB 12/03/15 Docusate Sodium* (COLACE*) 100 Mg Capsule, 100 MG ORAL TWICE A DAY, CAP 12/03/15 Hydrochlorothiazide* (HYDROCHLOROTHIAZIDE*) 25 Mg Tablet, 25 MG ORAL DAILY, TAB 12/03/15 Hydrochlorothiazide* (HYDROCHLOROTHIAZIDE*) 25 Mg Tablet, ORAL DAILY, TAB 11/12/14 Febuxostat (ULORIC) 40 Mg Tablet, 40 MG ORAL DAILY, TAB 0 Refills 04/14/13 Rivaroxaban (XARELTO*) 10 Mg Tablet, 20 MG ORAL DAILY, TAB 0 Refills 04/14/13 Benazepril Hcl* (BENAZEPRIL HCL*) 20 Mg Tablet, 20 MG ORAL DAILY, TAB 10/12/12 Med list reviewed/reconciled: Yes Allergies: Coded Allergies: SULFA (SULFONAMIDE ANTIBIOTICS) (Unverified Allergy, Unknown, 05/02/15) allergy history per Dr. Jones Patient History History Provided By: Patient, Medical Record PMH Narrative Past Medical History: other - DVT, HTN, obesity Past Surgical History: none Pertinent Family History: none Social History: Denies: smoking, alcohol use, drug use Now: No Immunizations: UTD Reviewed Nursing Documentation: PMH: Agreed, PSxH: Agreed Nursing Documentation-PMH Hx Cardiac Problems: Yes - bilateral leg blood clots x 2 yr Hx Hypertension: Yes Hx Asthma: Yes - Childhood Hx Cancer: No Hx Gastrointestinal Problems: Yes - GI bleeding Hx Neurological Problems: No Hx Cerebrovascular Accident: No - CELLULITIS LOWER ABD AND BI-LAT LEGS Review of Systems All Other Systems: negative except mentioned in HPI Physical Exam Vital Signs Date Time Temp Pulse Resp B/P (MAP) Pulse Ox O2 Delivery O2 Flow Rate FiO2 02/16/17 14:11 97.7 82 16 138/78 99 Room Air Sp02 EP Interpretation: reviewed Labs Laboratory Tests Test 02/18/17 14:28 02/19/17 06:00 Urine Color Pale yellow Urine Appearance Clear Urine pH 6 (4.5-8.0) Urine Specific [place] 1.010 (1.005-1.035) Urine Protein Negative (NEGATIVE) Urine Glucose (UA) Negative (NEGATIVE) Urine Ketones Negative (NEGATIVE) Urine Occult Blood 1+ (NEGATIVE) H Urine Nitrite Negative (NEGATIVE) Urine Bilirubin Negative (NEGATIVE) Urine Urobilinogen Normal MG/DL (0.0-1.0) Urine Leukocyte Esterase Negative (NEGATIVE) Urine RBC 0-2 /HPF (0 - 2) Urine WBC 0-2 /HPF (0 - 2) Urine Squamous Epithelial Cells Few /LPF (NONE/OCC) Urine Bacteria Few /HPF (NONE) White Blood Count 12.3 K/UL (4.8-10.8) H Red Blood Count 3.77 M/UL (4.20-5.40) L Hemoglobin 9.8 G/DL (12.0-16.0) L Hematocrit 31.5 % (37.0-47.0) L Mean Corpuscular Volume 84 FL (80-99) Mean Corpuscular Hemoglobin 25.9 PG (27.0-31.0) L Mean Corpuscular Hemoglobin Concent 31.0 G/DL (32.0-36.0) L Red Cell Distribution Width 14.8 % (11.6-14.8) Platelet Count 199 K/UL (150-450) Mean Platelet Volume 6.7 FL (6.5-10.1) Neutrophils (%) (Auto) 72.4 % (45.0-75.0) Lymphocytes (%) (Auto) 14.6 % (20.0-45.0) L Monocytes (%) (Auto) 7.1 % (1.0-10.0) Eosinophils (%) (Auto) 5.1 % (0.0-3.0) H Basophils (%) (Auto) 0.7 % (0.0-2.0) Erythrocyte Sedimentation Rate 105 MM/HR (0-30) H Sodium Level 134 MMOL/L (136-145) L Potassium Level 3.5 MMOL/L (3.5-5.1) Chloride Level 98 MMOL/L (98-107) Carbon Dioxide Level 30 MMOL/L (21-32) Anion Gap 6 (5-15) Blood Urea Nitrogen 14 mg/dL (7-18) Creatinine 0.7 MG/DL (0.55-1.30) Estimat Glomerular Filtration Rate > 60 mL/min (>60) Glucose Level 85 MG/DL (74-106) Calcium Level 8.4 MG/DL (8.5-10.1) L Phosphorus Level 4.0 MG/DL (2.5-4.9) Magnesium Level 1.7 MG/DL (1.8-2.4) L Total Bilirubin 0.2 MG/DL (0.2-1.0) Aspartate Amino Transf (AST/SGOT) 14 U/L (15-37) L Alanine Aminotransferase (ALT/SGPT) 11 U/L (12-78) L Alkaline Phosphatase 71 U/L (46-116) C-Reactive Protein, Quantitative 3.8 mg/dL (0.00-0.90) H Total Protein 7.5 G/DL (6.4-8.2) Albumin 2.6 G/DL (3.4-5.0) L Globulin 4.9 g/dL Albumin/Globulin Ratio 0.5 (1.0-2.7) L General Appearance: well appearing, no apparent distress, obese Head: normocephalic Neck: supple Respiratory: no respiratory distress Cardiovascular: normal rate Gastrointestinal: soft Current Medications Current Medications Medications (Trade) Dose Ordered Sig/Key Route PRN Reason Start Time Stop Time Status Last Admin Dose Admin Acetaminophen (Tylenol) 650 mg Q4H PRN ORAL Mild Pain (Pain Scale 1-3) 02/16/17 19:15 03/18/17 19:14 02/18/17 01:49 Acetaminophen (Tylenol) 650 mg Q4H PRN ORAL fever 02/16/17 19:15 03/18/17 19:14 Acetaminophen (Tylenol) 650 mg Q4H PRN RECTAL Mild Pain (Pain Scale 1-3) 02/16/17 19:15 03/18/17 19:14 Acetaminophen/ Codeine Phosphate (Tylenol #3) 1 tab Q4H PRN ORAL FOR MODERATE PAIN 02/16/17 19:00 02/23/17 18:59 Acetaminophen/ Codeine Phosphate (Tylenol #3) 2 tab Q6H PRN ORAL SEVERE PAIN 02/16/17 19:00 02/23/17 18:59 Acetaminophen/ Codeine Phosphate (Tylenol #4) 1 ea Q6H PRN ORAL for severe breakthru pain 02/16/17 19:15 02/23/17 19:14 Bisacodyl (Dulcolax) 10 mg DAILYPRN PRN RECTAL Constipation 02/16/17 19:15 03/18/17 19:14 Chlorhexidine Gluconate (Priti-Hex 2%) 1 applic DAILY@2000 TOPIC 02/19/17 20:00 03/21/17 19:59 Dextrose (Dextrose 50%) STAT PRN IV Hypoglycemia 02/16/17 19:15 03/18/17 19:14 Docusate Sodium (Colace) 100 mg EVERY 12 HOURS ORAL 02/16/17 21:00 03/18/17 20:59 02/19/17 08:31 Furosemide (Lasix) 20 mg BID ORAL 02/16/17 19:45 03/18/17 19:44 02/19/17 08:32 Hydromorphone HCl (Dilaudid) 0.5 mg Q6HR PRN IVP Severe Pain (Pain Scale 7-10) 02/17/17 08:30 02/24/17 08:29 02/19/17 08:57 Magnesium Hydroxide (Mom) 30 ml HSPRN PRN ORAL Constipation 02/16/17 19:15 03/18/17 19:14 Nitroglycerin (Ntg) 0.4 mg Q5M PRN SL Prn Chest Pain 02/16/17 17:15 03/18/17 17:14 02/16/17 17:35 Ondansetron HCl (Zofran) 4 mg Q4HR PRN IVP Nausea & Vomiting 02/17/17 08:30 03/19/17 08:29 02/17/17 09:33 Polyethylene Glycol (Miralax) 17 gm DAILYPRN PRN ORAL Constipation 02/16/17 19:15 03/18/17 19:14 GI: Plan Problems: (1) Hypoalbuminemia (2) Morbid obesity (3) Anemia (4) Sepsis (5) Leukocytosis Plan Endoscopy Procedure Note Indication for Procedure: anemia Procedures Performed: EGD, colonoscopy Operative Findings/Diagnosis: mild kemi - bx, colon negative ISSA MCCORMACK - Sep 02, 2015 11:09 hold GI procedures at this time, pt denies any GI bleed. anemia work up OB stool r/o GI bleed monitor H&H, prn transfusions adv to cardiac diet bowel regime ppi IV hydration + electrolyte correction fu labs patient is one Eliquis (last dose 02/19/17) >> must be dc'd min 48 hours prior to any endoscopic procedures. Discussed with Dr. Galo. Thank you for this patient referral, we will follow. Vane New N.P. Feb 19, 2017 14:09
[2017-02-19 16:00] VITALS: BP_SYST 119; BP_SYST 124; BP_DIAS 70; BP_DIAS 76
--- NOTE | 2017-02-19 19:18 | Cardiology Progress Note ---
Assessment/Plan Assessment/Plan 1. Atypical chest pain reproducible on palpation of the chest wall. 2. Morbid obesity. 3. History of deep venous thrombosis. 4. History of hypertension. 5. History of cellulitis. all trop neg dobut stress echo 06/2016 neg ok to de home from cardiac viw [facility]ia case Subjective Cardiovascular: Reports: chest pain - tender to palp she says Respiratory: Denies: shortness of breath Gastrointestinal/Abdominal: Denies: abdominal pain Genitourinary: Reports: burning, hematuria Objective Last 24 Hour Vital Signs Date Time Temp Pulse Resp B/P (MAP) Pulse Ox O2 Delivery O2 Flow Rate FiO2 02/19/17 16:00 76 02/19/17 16:00 97.3 72 18 119/70 97 Nasal Cannula 2.0 02/19/17 12:00 79 02/19/17 11:51 97.5 85 20 138/89 96 Room Air 02/19/17 08:02 97.7 80 20 131/79 97 Room Air 02/19/17 08:00 92 02/19/17 04:00 97.7 78 20 141/69 100 Room Air 02/19/17 04:00 80 02/19/17 00:00 84 02/18/17 23:36 97.7 85 18 105/58 96 Room Air 02/18/17 20:24 97.7 83 18 143/84 98 Room Air 02/18/17 20:00 87 General Appearance: no apparent distress, alert Neck: no JVD Cardiovascular: normal rate, regular rhythm, other - chest wall tnderness to palp Respiratory/Chest: lungs clear Abdomen: normal bowel sounds, non tender, soft Extremities: trace edema Intake and Output 02/19/17 02/20/17 19:00 07:00 Intake Total 1420 ml Balance 1420 ml Intake Oral 1320 ml IV Total 100 ml # Voids 7 Laboratory Tests Test 02/19/17 06:00 White Blood Count 12.3 K/UL (4.8-10.8) H Red Blood Count 3.77 M/UL (4.20-5.40) L Hemoglobin 9.8 G/DL (12.0-16.0) L Hematocrit 31.5 % (37.0-47.0) L Mean Corpuscular Volume 84 FL (80-99) Mean Corpuscular Hemoglobin 25.9 PG (27.0-31.0) L Mean Corpuscular Hemoglobin Concent 31.0 G/DL (32.0-36.0) L Red Cell Distribution Width 14.8 % (11.6-14.8) Platelet Count 199 K/UL (150-450) Mean Platelet Volume 6.7 FL (6.5-10.1) Neutrophils (%) (Auto) 72.4 % (45.0-75.0) Lymphocytes (%) (Auto) 14.6 % (20.0-45.0) L Monocytes (%) (Auto) 7.1 % (1.0-10.0) Eosinophils (%) (Auto) 5.1 % (0.0-3.0) H Basophils (%) (Auto) 0.7 % (0.0-2.0) Erythrocyte Sedimentation Rate 105 MM/HR (0-30) H Sodium Level 134 MMOL/L (136-145) L Potassium Level 3.5 MMOL/L (3.5-5.1) Chloride Level 98 MMOL/L (98-107) Carbon Dioxide Level 30 MMOL/L (21-32) Anion Gap 6 (5-15) Blood Urea Nitrogen 14 mg/dL (7-18) Creatinine 0.7 MG/DL (0.55-1.30) Estimat Glomerular Filtration Rate > 60 mL/min (>60) Glucose Level 85 MG/DL (74-106) Calcium Level 8.4 MG/DL (8.5-10.1) L Phosphorus Level 4.0 MG/DL (2.5-4.9) Magnesium Level 1.7 MG/DL (1.8-2.4) L Total Bilirubin 0.2 MG/DL (0.2-1.0) Aspartate Amino Transf (AST/SGOT) 14 U/L (15-37) L Alanine Aminotransferase (ALT/SGPT) 11 U/L (12-78) L Alkaline Phosphatase 71 U/L (46-116) C-Reactive Protein, Quantitative 3.8 mg/dL (0.00-0.90) H Total Protein 7.5 G/DL (6.4-8.2) Albumin 2.6 G/DL (3.4-5.0) L Globulin 4.9 g/dL Albumin/Globulin Ratio 0.5 (1.0-2.7) L Microbiology Date/Time Source Procedure Growth Status 02/18/17 14:28 Urine,Clean Catch Urine Culture - Preliminary Resulted SADIE GONSALEZ Feb 19, 2017 19:18
[2017-02-19 20:00] VITALS: BP 130/76
[2017-02-19] MEDS: Dyna-Hex 2% Top Sol 2oz TOPIC SCH (20:34)
--- NOTE | 2017-02-19 22:46 | General Progress Note ---
Assessment/Plan Assessment/Plan ASSESSMENT AND PLAN: 1. History of deep venous thrombosis of the bilateral lower extremities. Continue the patient on Eliquis. Currently, no evidence of progression of deep venous thrombosis. 2. Anemia secondary to history of vaginal bleeding. Uterine fibroids noted. 3. Anemia secondary to iron deficiency. 4. Lower extremity cellulitis. 5. Factor V Leiden deficiency. 6. Pulmonary embolism. Subjective Date patient seen: Feb 18, 2017 Allergies: Coded Allergies: SULFA (SULFONAMIDE ANTIBIOTICS) (Unverified Allergy, Unknown, 05/02/15) allergy history per Dr. Jones All Systems: reviewed and negative except above Subjective NAD Objective Last 24 Hour Vital Signs Date Time Temp Pulse Resp B/P (MAP) Pulse Ox O2 Delivery O2 Flow Rate FiO2 02/19/17 21:00 85 02/19/17 20:00 98.1 79 20 130/76 2 Nasal Cannula 02/19/17 16:00 76 02/19/17 16:00 97.3 72 18 119/70 97 Nasal Cannula 2.0 02/19/17 12:00 79 02/19/17 11:51 97.5 85 20 138/89 96 Room Air 02/19/17 08:02 97.7 80 20 131/79 97 Room Air 02/19/17 08:00 92 02/19/17 04:00 97.7 78 20 141/69 100 Room Air 02/19/17 04:00 80 02/19/17 00:00 84 02/18/17 23:36 97.7 85 18 105/58 96 Room Air Intake and Output 02/19/17 02/20/17 19:00 07:00 Intake Total 1420 ml Balance 1420 ml Intake Oral 1320 ml IV Total 100 ml # Voids 7 Laboratory Tests 02/19/17 06:00: White Blood Count 12.3H, Red Blood Count 3.77L, Hemoglobin 9.8L, Hematocrit 31.5L, Mean Corpuscular Volume 84, Mean Corpuscular Hemoglobin 25.9L, Mean Corpuscular Hemoglobin Concent 31.0L, Red Cell Distribution Width 14.8, Platelet Count 199, Mean Platelet Volume 6.7, Neutrophils (%) (Auto) 72.4, Lymphocytes (%) (Auto) 14.6L, Monocytes (%) (Auto) 7.1, Eosinophils (%) (Auto) 5.1H, Basophils (%) (Auto) 0.7, Erythrocyte Sedimentation Rate 105H, Sodium Level 134L, Potassium Level 3.5, Chloride Level 98, Carbon Dioxide Level 30, Anion Gap 6, Blood Urea Nitrogen 14, Creatinine 0.7, Estimat Glomerular Filtration Rate > 60, Glucose Level 85, Calcium Level 8.4L, Phosphorus Level 4.0 , Magnesium Level 1.7L, Total Bilirubin 0.2, Aspartate Amino Transf (AST/SGOT) 14L, Alanine Aminotransferase (ALT/SGPT) 11L, Alkaline Phosphatase 71, C- Reactive Protein, Quantitative 3.8H, Total Protein 7.5, Albumin 2.6L, Globulin 4.9, Albumin/Globulin Ratio 0.5L Height (Feet): 6 Height (Inches): 1.00 Weight (Pounds): 449 General Appearance: no apparent distress EENT: normal ENT inspection Extremities: normal inspection Dinesh Rodríguez Feb 19, 2017 22:46
--- NOTE | 2017-02-19 22:48 | General Progress Note ---
Assessment/Plan Assessment/Plan ASSESSMENT AND PLAN: 1. History of deep venous thrombosis of the bilateral lower extremities. Continue the patient on Eliquis. Currently, no evidence of progression of deep venous thrombosis. 2. Anemia secondary to history of vaginal bleeding. Uterine fibroids noted. 3. Anemia secondary to iron deficiency. Ferritin level has been ordered and currently pending 4. Lower extremity cellulitis. ID following 5. Factor V Leiden deficiency. 6. Pulmonary embolism. Subjective Hematologic/Lymphatic: Reports: anemia Allergies: Coded Allergies: SULFA (SULFONAMIDE ANTIBIOTICS) (Unverified Allergy, Unknown, 05/02/15) allergy history per Dr. Jones All Systems: reviewed and negative except above Subjective NAD Objective Last 24 Hour Vital Signs Date Time Temp Pulse Resp B/P (MAP) Pulse Ox O2 Delivery O2 Flow Rate FiO2 02/19/17 21:00 85 02/19/17 20:00 98.1 79 20 130/76 2 Nasal Cannula 02/19/17 16:00 76 02/19/17 16:00 97.3 72 18 119/70 97 Nasal Cannula 2.0 02/19/17 12:00 79 02/19/17 11:51 97.5 85 20 138/89 96 Room Air 02/19/17 08:02 97.7 80 20 131/79 97 Room Air 02/19/17 08:00 92 02/19/17 04:00 97.7 78 20 141/69 100 Room Air 02/19/17 04:00 80 02/19/17 00:00 84 02/18/17 23:36 97.7 85 18 105/58 96 Room Air Intake and Output 02/19/17 02/20/17 19:00 07:00 Intake Total 1420 ml Balance 1420 ml Intake Oral 1320 ml IV Total 100 ml # Voids 7 Laboratory Tests 02/19/17 06:00: White Blood Count 12.3H, Red Blood Count 3.77L, Hemoglobin 9.8L, Hematocrit 31.5L, Mean Corpuscular Volume 84, Mean Corpuscular Hemoglobin 25.9L, Mean Corpuscular Hemoglobin Concent 31.0L, Red Cell Distribution Width 14.8, Platelet Count 199, Mean Platelet Volume 6.7, Neutrophils (%) (Auto) 72.4, Lymphocytes (%) (Auto) 14.6L, Monocytes (%) (Auto) 7.1, Eosinophils (%) (Auto) 5.1H, Basophils (%) (Auto) 0.7, Erythrocyte Sedimentation Rate 105H, Sodium Level 134L, Potassium Level 3.5, Chloride Level 98, Carbon Dioxide Level 30, Anion Gap 6, Blood Urea Nitrogen 14, Creatinine 0.7, Estimat Glomerular Filtration Rate > 60, Glucose Level 85, Calcium Level 8.4L, Phosphorus Level 4.0 , Magnesium Level 1.7L, Total Bilirubin 0.2, Aspartate Amino Transf (AST/SGOT) 14L, Alanine Aminotransferase (ALT/SGPT) 11L, Alkaline Phosphatase 71, C- Reactive Protein, Quantitative 3.8H, Total Protein 7.5, Albumin 2.6L, Globulin 4.9, Albumin/Globulin Ratio 0.5L Height (Feet): 6 Height (Inches): 1.00 Weight (Pounds): 449 General Appearance: no apparent distress EENT: pharynx normal Neck: normal alignment Cardiovascular: regular rhythm Respiratory/Chest: decreased breath sounds Abdomen: normal bowel sounds Extremities: normal inspection Dinesh Rodríguez Feb 19, 2017 22:48
[2017-02-20] VITALS: BP_SYST 126; BP_SYST 131; BP_DIAS 67; BP_DIAS 78
[2017-02-20] MEDS: Hydromorphone 0.5mg/0.5ml inj IVP PRN ×4 (03:16→23:26)
[2017-02-20 04:07] VITALS: BP 129/78
[2017-02-20 06:19] LABS: BASOPHILS % (AUTO) 1.3 % (0.0-2.0); EOSINOPHILS % (AUTO) 6.8 % (0.0-3.0); LYMPHOCYTES % (AUTO) 14.6 % (20.0-45.0); MEAN CORPUSCULAR HEMOGLOBIN 26.2 PG (27.0-31.0); MEAN CORPUSCULAR HGB CONC 31.5 G/DL (32.0-36.0); MEAN CORPUSCULAR VOLUME 83 FL (80-99); MEAN PLATELET VOLUME 6.6 FL (6.5-10.1); MONOCYTES % (AUTO) 8.3 % (1.0-10.0); NEUTROPHILS % (AUTO) 69.1 % (45.0-75.0); PLATELET COUNT 225 K/UL (150-450); RED BLOOD COUNT 3.73 M/UL (4.20-5.40); RED CELL DISTRIBUTION WIDTH 14.8 % (11.6-14.8); WHITE BLOOD COUNT 11.7 K/UL (4.8-10.8)
[2017-02-20 07:04] LABS: ANION GAP 4 (5-15); CALCIUM 8.9 MG/DL (8.5-10.1); CARBON DIOXIDE 32 MMOL/L (21-32); CHLORIDE 101 MMOL/L (98-107); CREATININE 0.8 MG/DL (0.55-1.30); GLOMERULAR FILTRATION RATE > 60 mL/min (>60); POTASSIUM 3.7 MMOL/L (3.5-5.1); SODIUM 137 MMOL/L (136-145)
[2017-02-20 07:09] LABS: IRON 28 ug/dL (50-175); TOTAL IRON BINDING CAPACITY 297 ug/dL (250-450)
[2017-02-20 07:22] LABS: MAGNESIUM 1.9 MG/DL (1.8-2.4); THYROID STIMULATING HORMONE 1.265 uiU/mL (0.360-3.740)
[2017-02-20 08:00] VITALS: BP 135/74
--- NOTE | 2017-02-20 08:12 | Cardiology Report ---
APPROVED REPORT EKG Measurement Heart [id number] Normal sinus rhythm Normal ECG
[2017-02-20] MEDS: Docusate 100mg cap ORAL SCH ×2 (08:40→21:11)
[2017-02-20] MEDS ORDERED: Iron Sucrose 100 MG in NS 55 ML IV ONE (10:00)
--- NOTE | 2017-02-20 11:42 | Pulmonology Progress Note ---
Assessment/Plan Problems: (1) ACS (acute coronary syndrome) (2) Atypical psychosis (3) Gout (4) HTN (hypertension) (5) Factor 5 Leiden mutation, heterozygous (6) Obesity (7) Leukocytosis Assessment/Plan GI evaluation for lower GI bleeding hold Apixiban and Aspirine on empiric levo f/u cardiology recommendations med/surg if ok with cardio Hem evaluation. gi evaluation appreciated for colonoscopy check h/h Subjective ROS Limited/Unobtainable: No Constitutional: Reports: no symptoms HEENT: Repors: no symptoms Allergies: Coded Allergies: SULFA (SULFONAMIDE ANTIBIOTICS) (Unverified Allergy, Unknown, 05/02/15) allergy history per Dr. Jones Objective Last 24 Hour Vital Signs Date Time Temp Pulse Resp B/P (MAP) Pulse Ox O2 Delivery O2 Flow Rate FiO2 02/20/17 08:00 90 02/20/17 08:00 97.9 78 20 135/74 96 Room Air 02/20/17 04:07 97.7 81 20 129/78 Room Air 02/20/17 04:00 83 02/20/17 00:00 97.9 82 20 131/67 100 Room Air 02/20/17 00:00 82 02/19/17 21:00 85 02/19/17 20:00 98.1 79 20 130/76 2 Nasal Cannula 02/19/17 16:00 76 02/19/17 16:00 97.3 72 18 119/70 97 Nasal Cannula 2.0 02/19/17 12:00 79 02/19/17 11:51 97.5 85 20 138/89 96 Room Air Intake and Output 02/20/17 02/21/17 19:00 07:00 Intake Total 60 ml Balance 60 ml IV Total 60 ml General Appearance: WD/WN HEENT: normocephalic, atraumatic Respiratory/Chest: chest wall non-tender, lungs clear Cardiovascular: normal peripheral pulses, normal rate Abdomen: normal bowel sounds, soft, non tender, no scars Extremities: no cyanosis Skin: no rash 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, no motor/sensory deficits Lymphatic: no neck adenopathy Microbiology Date/Time Source Procedure Growth Status 02/18/17 14:28 Urine,Clean Catch Urine Culture - Preliminary Gram Negative Bacillus 1 Resulted Laboratory Tests 02/20/17 02:05: Stool Occult Blood [Pending] 02/20/17 06:00: White Blood Count 11.7H, Red Blood Count 3.73L, Hemoglobin 9.8L, Hematocrit 31.1L, Mean Corpuscular Volume 83, Mean Corpuscular Hemoglobin 26.2L, Mean Corpuscular Hemoglobin Concent 31.5L, Red Cell Distribution Width 14.8, Platelet Count 225, Mean Platelet Volume 6.6, Neutrophils (%) (Auto) 69.1, Lymphocytes (%) (Auto) 14.6L, Monocytes (%) (Auto) 8.3, Eosinophils (%) (Auto) 6.8H, Basophils (%) (Auto) 1.3, Reticulocyte Count 1.5, Sodium Level 137, Potassium Level 3.7, Chloride Level 101, Carbon Dioxide Level 32, Anion Gap 4L, Blood Urea Nitrogen 15, Creatinine 0.8, Estimat Glomerular Filtration Rate > 60 , Glucose Level 100, Calcium Level 8.9, Magnesium Level 1.9, Iron Level 28L, Total Iron Binding Capacity 297, Percent Iron Saturation 9L, Unsaturated Iron Binding 269, Ferritin 38, Carcinoembryonic Antigen [Pending], Vitamin B12 Level 396, Folate [Pending], Thyroid Stimulating Hormone (TSH) 1.265, Free Thyroxine 1.19 Current Medications Medications (Trade) Dose Ordered Sig/Key Route PRN Reason Start Time Stop Time Status Last Admin Dose Admin Acetaminophen (Tylenol) 650 mg Q4H PRN ORAL Mild Pain (Pain Scale 1-3) 02/16/17 19:15 03/18/17 19:14 02/18/17 01:49 Acetaminophen (Tylenol) 650 mg Q4H PRN ORAL fever 02/16/17 19:15 03/18/17 19:14 Acetaminophen (Tylenol) 650 mg Q4H PRN RECTAL Mild Pain (Pain Scale 1-3) 02/16/17 19:15 03/18/17 19:14 Acetaminophen/ Codeine Phosphate (Tylenol #3) 1 tab Q4H PRN ORAL FOR MODERATE PAIN 02/16/17 19:00 02/23/17 18:59 Acetaminophen/ Codeine Phosphate (Tylenol #3) 2 tab Q6H PRN ORAL SEVERE PAIN 02/16/17 19:00 02/23/17 18:59 Acetaminophen/ Codeine Phosphate (Tylenol #4) 1 ea Q6H PRN ORAL for severe breakthru pain 02/16/17 19:15 02/23/17 19:14 Bisacodyl (Dulcolax) 10 mg DAILYPRN PRN RECTAL Constipation 02/16/17 19:15 03/18/17 19:14 Chlorhexidine Gluconate (Priti-Hex 2%) 1 applic DAILY@2000 TOPIC 02/19/17 20:00 03/21/17 19:59 02/19/17 20:34 Dextrose (Dextrose 50%) STAT PRN IV Hypoglycemia 02/16/17 19:15 03/18/17 19:14 Diphenhydramine HCl (Benadryl) 25 mg Q6H PRN IVP Itching 02/20/17 07:00 03/22/17 06:59 Docusate Sodium (Colace) 100 mg EVERY 12 HOURS ORAL 02/16/17 21:00 03/18/17 20:59 02/20/17 08:40 Furosemide (Lasix) 20 mg BID ORAL 02/16/17 19:45 03/18/17 19:44 02/20/17 08:40 Hydromorphone HCl (Dilaudid) 0.5 mg Q6HR PRN IVP Severe Pain (Pain Scale 7-10) 02/17/17 08:30 02/24/17 08:29 02/20/17 10:10 Magnesium Hydroxide (Mom) 30 ml HSPRN PRN ORAL Constipation 02/16/17 19:15 03/18/17 19:14 Nitroglycerin (Ntg) 0.4 mg Q5M PRN SL Prn Chest Pain 02/16/17 17:15 03/18/17 17:14 02/16/17 17:35 Ondansetron HCl (Zofran) 4 mg Q4HR PRN IVP Nausea & Vomiting 02/17/17 08:30 03/19/17 08:29 02/17/17 09:33 Polyethylene Glycol (Miralax) 17 gm DAILYPRN PRN ORAL Constipation 02/16/17 19:15 03/18/17 19:14 VIKTORIYA CONNOR Feb 20, 2017 11:42
[2017-02-20 11:51] VITALS: BP 123/80
--- NOTE | 2017-02-20 14:14 | Cardiology Progress Note ---
Assessment/Plan Assessment/Plan 1. Atypical chest pain reproducible on palpation of the chest wall. 2. Morbid obesity. 3. History of deep venous thrombosis. 4. History of hypertension. 5. History of cellulitis. all trop neg dobut stress echo 06/2016 neg ok to dc home from cardiac viw point no change in sstus has itching may be related to abx Subjective Cardiovascular: Denies: chest pain, lightheadedness, palpitations Respiratory: Denies: shortness of breath Gastrointestinal/Abdominal: Denies: abdomen distended Genitourinary: Denies: burning Objective Last 24 Hour Vital Signs Date Time Temp Pulse Resp B/P (MAP) Pulse Ox O2 Delivery O2 Flow Rate FiO2 02/20/17 11:51 97.7 79 20 123/80 98 Room Air 02/20/17 08:00 90 02/20/17 08:00 97.9 78 20 135/74 96 Room Air 02/20/17 04:07 97.7 81 20 129/78 Room Air 02/20/17 04:00 83 02/20/17 00:00 97.9 82 20 131/67 100 Room Air 02/20/17 00:00 82 02/19/17 21:00 85 02/19/17 20:00 98.1 79 20 130/76 2 Nasal Cannula 02/19/17 16:00 76 02/19/17 16:00 97.3 72 18 119/70 97 Nasal Cannula 2.0 General Appearance: no apparent distress Neck: supple Cardiovascular: normal rate, regular rhythm Respiratory/Chest: lungs clear Abdomen: normal bowel sounds, non tender, soft Extremities: no swelling Intake and Output 02/20/17 02/21/17 19:00 07:00 Intake Total 780 ml Output Total 1100 ml Balance -320 ml Intake Oral 720 ml IV Total 60 ml Output Urine Total 1100 ml Laboratory Tests Test 02/20/17 02:05 02/20/17 06:00 Stool Occult Blood Negative (NEGATIVE) White Blood Count 11.7 K/UL (4.8-10.8) H Red Blood Count 3.73 M/UL (4.20-5.40) L Hemoglobin 9.8 G/DL (12.0-16.0) L Hematocrit 31.1 % (37.0-47.0) L Mean Corpuscular Volume 83 FL (80-99) Mean Corpuscular Hemoglobin 26.2 PG (27.0-31.0) L Mean Corpuscular Hemoglobin Concent 31.5 G/DL (32.0-36.0) L Red Cell Distribution Width 14.8 % (11.6-14.8) Platelet Count 225 K/UL (150-450) Mean Platelet Volume 6.6 FL (6.5-10.1) Neutrophils (%) (Auto) 69.1 % (45.0-75.0) Lymphocytes (%) (Auto) 14.6 % (20.0-45.0) L Monocytes (%) (Auto) 8.3 % (1.0-10.0) Eosinophils (%) (Auto) 6.8 % (0.0-3.0) H Basophils (%) (Auto) 1.3 % (0.0-2.0) Reticulocyte Count 1.5 % (0.0-2.0) Sodium Level 137 MMOL/L (136-145) Potassium Level 3.7 MMOL/L (3.5-5.1) Chloride Level 101 MMOL/L (98-107) Carbon Dioxide Level 32 MMOL/L (21-32) Anion Gap 4 (5-15) L Blood Urea Nitrogen 15 mg/dL (7-18) Creatinine 0.8 MG/DL (0.55-1.30) Estimat Glomerular Filtration Rate > 60 mL/min (>60) Glucose Level 100 MG/DL (74-106) Calcium Level 8.9 MG/DL (8.5-10.1) Magnesium Level 1.9 MG/DL (1.8-2.4) Iron Level 28 ug/dL (50-175) L Total Iron Binding Capacity 297 ug/dL (250-450) Percent Iron Saturation 9 % (15-50) L Unsaturated Iron Binding 269 ug/dL (112-346) Ferritin 38 NG/ML (8-388) Carcinoembryonic Antigen Pending Vitamin B12 Level 396 PG/ML (193-986) Folate Pending Thyroid Stimulating Hormone (TSH) 1.265 uiU/mL (0.360-3.740) Free Thyroxine 1.19 NG/DL (0.10-1.46) Microbiology Date/Time Source Procedure Growth Status 02/18/17 14:28 Urine,Clean Catch Urine Culture - Preliminary Gram Negative Bacillus 1 Resulted SADIE GONSALEZ Feb 20, 2017 14:14
--- NOTE | 2017-02-20 14:21 | Physician Query ---
PLEASE COMPLETE THE DOCUMENT BEFORE SIGNING Dear Dr. Bj Dee Date Feb Client Business Manager/CDS' Name Mickey WinklerMARIANN Client Business Manager/CDS Phone#: [phone] Exercise your independent professional judgment when responding to query. Questions asked do not imply particular answer is desired or expected. We greatly appreciate your clarification on this issue. Clinical Documentation States: "Atypical chest pain reproducible on palpation of the chest wall" documented in the consultation notes of Dr. Carter. Clinical Findings Show: all trop neg dobut stress echo 06/2016 neg Please document the suspected etiology of Chest Pain: a.Type: []Cardiac [x]Non-cardiac []Unspecified b.Etiology - cardiac [] Aortic dissection []Mitral valve prolapsed [] Acute myocardial infarction []Spasm of coronary arteries [] Coronary Artery Disease []Pericarditis c.Etiology - non-cardiac [] Anxiety []Pleurisy [] Cancer []Pneumonia, type [x] Costochondritis []Pneumothorax [] GERD/Esophagitis []Pulmonary embolism [] Unable to determine []Other: Condition Present on Admission: [x] Yes [] No []Clinically Undeterminable Please also document in your Progress Notes and/or Discharge Summary and indicate if the condition was present on admission. Bj Dee MD Date/Time [facility]
[2017-02-20] MEDS: DiphenhydrAMINE 50mg/ml Inj IVP PRN ×2 (14:26→21:11)
--- NOTE | 2017-02-20 14:47 | GI Progress Note ---
Assessment/Plan Problems: (1) Sepsis ICD Codes: A41.9 - Sepsis, unspecified organism SNOMED: 79785940 (2) Hypoalbuminemia ICD Codes: E88.09 - Other disorders of plasma-protein metabolism, not elsewhere classified SNOMED: 881455525 (3) Anemia ICD Codes: D64.9 - Anemia SNOMED: 332367399 (4) Obesity ICD Codes: E66.9 - Obesity, unspecified SNOMED: 421632447 Status: stable Status Narrative Discussed with Dr. Galo. Assessment/Plan Endoscopy Procedure Note Indication for Procedure: anemia Procedures Performed: EGD, colonoscopy Operative Findings/Diagnosis: mild kemi - bx, colon negative ISSA MCCORMACK - Sep 02, 2015 11:09 hold GI procedures at this time, pt denies any GI bleed. OB stool r/o GI bleed >> negative iron deficient >> venofer monitor H&H, prn transfusions cardiac diet, tolerating bowel regime ppi IV hydration + electrolyte correction fu labs patient is one Eliquis >> must be dc'd min 48 hours prior to any endoscopic procedures. Subjective Subjective abdominal discomfort Objective Last 24 Hour Vital Signs Date Time Temp Pulse Resp B/P (MAP) Pulse Ox O2 Delivery O2 Flow Rate FiO2 02/20/17 12:00 81 02/20/17 11:51 97.7 79 20 123/80 98 Room Air 02/20/17 08:00 90 02/20/17 08:00 97.9 78 20 135/74 96 Room Air 02/20/17 04:07 97.7 81 20 129/78 Room Air 02/20/17 04:00 83 02/20/17 00:00 97.9 82 20 131/67 100 Room Air 02/20/17 00:00 82 02/19/17 21:00 85 02/19/17 20:00 98.1 79 20 130/76 2 Nasal Cannula 02/19/17 16:00 76 02/19/17 16:00 97.3 72 18 119/70 97 Nasal Cannula 2.0 Intake and Output 02/20/17 02/21/17 19:00 07:00 Intake Total 780 ml Output Total 1100 ml Balance -320 ml Intake Oral 720 ml IV Total 60 ml Output Urine Total 1100 ml Laboratory Tests Test 02/20/17 02:05 02/20/17 06:00 Stool Occult Blood Negative (NEGATIVE) White Blood Count 11.7 K/UL (4.8-10.8) H Red Blood Count 3.73 M/UL (4.20-5.40) L Hemoglobin 9.8 G/DL (12.0-16.0) L Hematocrit 31.1 % (37.0-47.0) L Mean Corpuscular Volume 83 FL (80-99) Mean Corpuscular Hemoglobin 26.2 PG (27.0-31.0) L Mean Corpuscular Hemoglobin Concent 31.5 G/DL (32.0-36.0) L Red Cell Distribution Width 14.8 % (11.6-14.8) Platelet Count 225 K/UL (150-450) Mean Platelet Volume 6.6 FL (6.5-10.1) Neutrophils (%) (Auto) 69.1 % (45.0-75.0) Lymphocytes (%) (Auto) 14.6 % (20.0-45.0) L Monocytes (%) (Auto) 8.3 % (1.0-10.0) Eosinophils (%) (Auto) 6.8 % (0.0-3.0) H Basophils (%) (Auto) 1.3 % (0.0-2.0) Reticulocyte Count 1.5 % (0.0-2.0) Sodium Level 137 MMOL/L (136-145) Potassium Level 3.7 MMOL/L (3.5-5.1) Chloride Level 101 MMOL/L (98-107) Carbon Dioxide Level 32 MMOL/L (21-32) Anion Gap 4 (5-15) L Blood Urea Nitrogen 15 mg/dL (7-18) Creatinine 0.8 MG/DL (0.55-1.30) Estimat Glomerular Filtration Rate > 60 mL/min (>60) Glucose Level 100 MG/DL (74-106) Calcium Level 8.9 MG/DL (8.5-10.1) Magnesium Level 1.9 MG/DL (1.8-2.4) Iron Level 28 ug/dL (50-175) L Total Iron Binding Capacity 297 ug/dL (250-450) Percent Iron Saturation 9 % (15-50) L Unsaturated Iron Binding 269 ug/dL (112-346) Ferritin 38 NG/ML (8-388) Carcinoembryonic Antigen Pending Vitamin B12 Level 396 PG/ML (193-986) Folate Pending Thyroid Stimulating Hormone (TSH) 1.265 uiU/mL (0.360-3.740) Free Thyroxine 1.19 NG/DL (0.10-1.46) Height (Feet): 6 Height (Inches): 1.00 Weight (Pounds): 449 General Appearance: no apparent distress, alert, obese Cardiovascular: normal rate Respiratory/Chest: normal breath sounds, no respiratory distress Abdominal Exam: normal bowel sounds, non tender, soft Extremities: normal range of motion Vane New N.P. Feb 20, 2017 14:47
[2017-02-20 16:00] VITALS: BP 119/84
--- NOTE | 2017-02-20 16:36 | Infectious Diseases Prog Note ---
Assessment/Plan Assessment/Plan IMPRESSION: 1. Leukocytosis.; improving- suspect reactive to costochondritis/CP. Patient afebrile, no localizing symptoms of infection. No cellulitis on exam -u/a neg, ucx 70-80K GNR > assymptomatic bacteriuria as no symptoms and normal u/a -CXR no acute disease 2. The patient with stasis dermatitis of lower extremities, no cellulitis on exam 3. Atypical chest pain.-?costocondritis- reproductible by palpation -ekg, trops neg 4. History of deep venous thrombosis. 5. Gout. 6. Hypertension. 7. Morbid obesity. RECOMMENDATION: -Continue to monitor off abx -s/p 2d Levaquin 02/20 -cont pain management -Monitor CBC/BMP, temperatures Discussed with RN. Subjective Allergies: Coded Allergies: SULFA (SULFONAMIDE ANTIBIOTICS) (Unverified Allergy, Unknown, 05/02/15) allergy history per Dr. Jones Subjective afebrile and leukocytosis trending down now off abx denies cough, SOB, n/v/d, dysuria CP improving Objective Vital Signs Last 24 Hour Vital Signs Date Time Temp Pulse Resp B/P (MAP) Pulse Ox O2 Delivery O2 Flow Rate FiO2 02/20/17 16:00 97.3 81 19 119/84 94 Room Air 02/20/17 12:00 81 02/20/17 11:51 97.7 79 20 123/80 98 Room Air 02/20/17 08:00 90 02/20/17 08:00 97.9 78 20 135/74 96 Room Air 02/20/17 04:07 97.7 81 20 129/78 Room Air 02/20/17 04:00 83 02/20/17 00:00 97.9 82 20 131/67 100 Room Air 02/20/17 00:00 82 02/19/17 21:00 85 02/19/17 20:00 98.1 79 20 130/76 2 Nasal Cannula Height (Feet): 6 Height (Inches): 1.00 Weight (Pounds): 449 Objective GENERAL APPEARANCE: The patient is morbidly obese, awake, alert, andoriented x3. HEAD AND NECK: Levan conjunctivae. No oral lesions. Pupils reactive. HEART: S1 and S2 regular. chest pain reproducible by palpation LUNGS: Clear. ABDOMEN: Soft, obese. EXTREMITIES: Edema of lower extremities with chronic stasis dermatitis with pigmentation, no evidence of cellulitis NEUROLOGIC: Awake, alert, and oriented x3. Microbiology Date/Time Source Procedure Growth Status 02/18/17 14:28 Urine,Clean Catch Urine Culture - Preliminary Gram Negative Bacillus 1 Resulted Laboratory Tests Test 02/20/17 02:05 02/20/17 06:00 Stool Occult Blood Negative (NEGATIVE) White Blood Count 11.7 K/UL (4.8-10.8) H Red Blood Count 3.73 M/UL (4.20-5.40) L Hemoglobin 9.8 G/DL (12.0-16.0) L Hematocrit 31.1 % (37.0-47.0) L Mean Corpuscular Volume 83 FL (80-99) Mean Corpuscular Hemoglobin 26.2 PG (27.0-31.0) L Mean Corpuscular Hemoglobin Concent 31.5 G/DL (32.0-36.0) L Red Cell Distribution Width 14.8 % (11.6-14.8) Platelet Count 225 K/UL (150-450) Mean Platelet Volume 6.6 FL (6.5-10.1) Neutrophils (%) (Auto) 69.1 % (45.0-75.0) Lymphocytes (%) (Auto) 14.6 % (20.0-45.0) L Monocytes (%) (Auto) 8.3 % (1.0-10.0) Eosinophils (%) (Auto) 6.8 % (0.0-3.0) H Basophils (%) (Auto) 1.3 % (0.0-2.0) Reticulocyte Count 1.5 % (0.0-2.0) Sodium Level 137 MMOL/L (136-145) Potassium Level 3.7 MMOL/L (3.5-5.1) Chloride Level 101 MMOL/L (98-107) Carbon Dioxide Level 32 MMOL/L (21-32) Anion Gap 4 (5-15) L Blood Urea Nitrogen 15 mg/dL (7-18) Creatinine 0.8 MG/DL (0.55-1.30) Estimat Glomerular Filtration Rate > 60 mL/min (>60) Glucose Level 100 MG/DL (74-106) Calcium Level 8.9 MG/DL (8.5-10.1) Magnesium Level 1.9 MG/DL (1.8-2.4) Iron Level 28 ug/dL (50-175) L Total Iron Binding Capacity 297 ug/dL (250-450) Percent Iron Saturation 9 % (15-50) L Unsaturated Iron Binding 269 ug/dL (112-346) Ferritin 38 NG/ML (8-388) Carcinoembryonic Antigen Pending Vitamin B12 Level 396 PG/ML (193-986) Folate Pending Thyroid Stimulating Hormone (TSH) 1.265 uiU/mL (0.360-3.740) Free Thyroxine 1.19 NG/DL (0.10-1.46) Current Medications Medications (Trade) Dose Ordered Sig/Key Route PRN Reason Start Time Stop Time Status Last Admin Dose Admin Acetaminophen (Tylenol) 650 mg Q4H PRN ORAL Mild Pain (Pain Scale 1-3) 02/16/17 19:15 03/18/17 19:14 02/18/17 01:49 Acetaminophen (Tylenol) 650 mg Q4H PRN ORAL fever 02/16/17 19:15 03/18/17 19:14 Acetaminophen (Tylenol) 650 mg Q4H PRN RECTAL Mild Pain (Pain Scale 1-3) 02/16/17 19:15 03/18/17 19:14 Acetaminophen/ Codeine Phosphate (Tylenol #3) 1 tab Q4H PRN ORAL FOR MODERATE PAIN 02/16/17 19:00 02/23/17 18:59 Acetaminophen/ Codeine Phosphate (Tylenol #3) 2 tab Q6H PRN ORAL SEVERE PAIN 02/16/17 19:00 02/23/17 18:59 Acetaminophen/ Codeine Phosphate (Tylenol #4) 1 ea Q6H PRN ORAL for severe breakthru pain 02/16/17 19:15 02/23/17 19:14 Bisacodyl (Dulcolax) 10 mg DAILYPRN PRN RECTAL Constipation 02/16/17 19:15 03/18/17 19:14 Cetylpyridinium Chloride (Cepacol) 1 lozenge Q4H PRN JEREMY THROAT IRRITATION 02/20/17 14:45 03/22/17 14:44 Chlorhexidine Gluconate (Priti-Hex 2%) 1 applic DAILY@2000 TOPIC 02/19/17 20:00 03/21/17 19:59 10/9/17 20:34 Dextrose (Dextrose 50%) STAT PRN IV Hypoglycemia 02/16/17 19:15 03/18/17 19:14 Diphenhydramine HCl (Benadryl) 25 mg Q6H PRN IVP Itching 02/20/17 07:00 03/22/17 06:59 02/20/17 14:26 Docusate Sodium (Colace) 100 mg EVERY 12 HOURS ORAL 02/16/17 21:00 03/18/17 20:59 02/20/17 08:40 Furosemide (Lasix) 20 mg BID ORAL 02/16/17 19:45 03/18/17 19:44 02/20/17 08:40 Hydromorphone HCl (Dilaudid) 0.5 mg Q6HR PRN IVP Severe Pain (Pain Scale 7-10) 02/17/17 08:30 02/24/17 08:29 02/20/17 10:10 Magnesium Hydroxide (Mom) 30 ml HSPRN PRN ORAL Constipation 02/16/17 19:15 03/18/17 19:14 Nitroglycerin (Ntg) 0.4 mg Q5M PRN SL Prn Chest Pain 02/16/17 17:15 03/18/17 17:14 02/16/17 17:35 Ondansetron HCl (Zofran) 4 mg Q4HR PRN IVP Nausea & Vomiting 02/17/17 08:30 03/19/17 08:29 02/17/17 09:33 Polyethylene Glycol (Miralax) 17 gm DAILYPRN PRN ORAL Constipation 02/16/17 19:15 03/18/17 19:14 Angela Sampson M.D. Feb 20, 2017 16:35
--- NOTE | 2017-02-20 16:38 | Internal Med Progress Note ---
Subjective Date of Service: Feb 20, 2017 Physician Name Jo Schmid Attending Physician Bj Dee MD Current Medications Medications (Trade) Dose Ordered Sig/Key Route PRN Reason Start Time Stop Time Status Last Admin Dose Admin Acetaminophen (Tylenol) 650 mg Q4H PRN ORAL Mild Pain (Pain Scale 1-3) 02/16/17 19:15 03/18/17 19:14 02/18/17 01:49 Acetaminophen (Tylenol) 650 mg Q4H PRN ORAL fever 02/16/17 19:15 03/18/17 19:14 Acetaminophen (Tylenol) 650 mg Q4H PRN RECTAL Mild Pain (Pain Scale 1-3) 02/16/17 19:15 03/18/17 19:14 Acetaminophen/ Codeine Phosphate (Tylenol #3) 1 tab Q4H PRN ORAL FOR MODERATE PAIN 02/16/17 19:00 02/23/17 18:59 Acetaminophen/ Codeine Phosphate (Tylenol #3) 2 tab Q6H PRN ORAL SEVERE PAIN 02/16/17 19:00 02/23/17 18:59 Acetaminophen/ Codeine Phosphate (Tylenol #4) 1 ea Q6H PRN ORAL for severe breakthru pain 02/16/17 19:15 02/23/17 19:14 Bisacodyl (Dulcolax) 10 mg DAILYPRN PRN RECTAL Constipation 02/16/17 19:15 03/18/17 19:14 Cetylpyridinium Chloride (Cepacol) 1 lozenge Q4H PRN JEREMY THROAT IRRITATION 02/20/17 14:45 03/22/17 14:44 Chlorhexidine Gluconate (Priti-Hex 2%) 1 applic DAILY@2000 TOPIC 02/19/17 20:00 03/21/17 19:59 02/19/17 20:34 Dextrose (Dextrose 50%) STAT PRN IV Hypoglycemia 02/16/17 19:15 03/18/17 19:14 Diphenhydramine HCl (Benadryl) 25 mg Q6H PRN IVP Itching 02/20/17 07:00 03/22/17 06:59 02/20/17 14:26 Docusate Sodium (Colace) 100 mg EVERY 12 HOURS ORAL 02/16/17 21:00 03/18/17 20:59 02/20/17 08:40 Furosemide (Lasix) 20 mg BID ORAL 02/16/17 19:45 03/18/17 19:44 02/20/17 08:40 Hydromorphone HCl (Dilaudid) 0.5 mg Q6HR PRN IVP Severe Pain (Pain Scale 7-10) 02/17/17 08:30 02/24/17 08:29 02/20/17 10:10 Magnesium Hydroxide (Mom) 30 ml HSPRN PRN ORAL Constipation 02/16/17 19:15 03/18/17 19:14 Nitroglycerin (Ntg) 0.4 mg Q5M PRN SL Prn Chest Pain 02/16/17 17:15 03/18/17 17:14 02/16/17 17:35 Ondansetron HCl (Zofran) 4 mg Q4HR PRN IVP Nausea & Vomiting 02/17/17 08:30 03/19/17 08:29 02/17/17 09:33 Polyethylene Glycol (Miralax) 17 gm DAILYPRN PRN ORAL Constipation 02/16/17 19:15 03/18/17 19:14 Allergies: Coded Allergies: SULFA (SULFONAMIDE ANTIBIOTICS) (Unverified Allergy, Unknown, 05/02/15) allergy history per Dr. Robert BAUER Limited/Unobtainable: No Constitutional: Reports: no symptoms HEENT: Reports: no symptoms Cardiovascular: Reports: chest pain Respiratory: Reports: no symptoms Gastrointestinal/Abdominal: Reports: rectal bleeding Genitourinary: Reports: no symptoms Neurologic/Psychiatric: Reports: no symptoms Subjective 56 YO F admitted with chest pain. Cover for Int Med-Dr Dee. Discharge held due to possible rectal bleeding. Objective Last Vital Signs Date Time Temp Pulse Resp B/P (MAP) Pulse Ox O2 Delivery O2 Flow Rate FiO2 02/20/17 16:00 97.3 81 19 119/84 94 Room Air 02/19/17 16:00 2.0 Laboratory Tests Test 02/20/17 02:05 02/20/17 06:00 Stool Occult Blood Negative (NEGATIVE) White Blood Count 11.7 K/UL (4.8-10.8) H Red Blood Count 3.73 M/UL (4.20-5.40) L Hemoglobin 9.8 G/DL (12.0-16.0) L Hematocrit 31.1 % (37.0-47.0) L Mean Corpuscular Volume 83 FL (80-99) Mean Corpuscular Hemoglobin 26.2 PG (27.0-31.0) L Mean Corpuscular Hemoglobin Concent 31.5 G/DL (32.0-36.0) L Red Cell Distribution Width 14.8 % (11.6-14.8) Platelet Count 225 K/UL (150-450) Mean Platelet Volume 6.6 FL (6.5-10.1) Neutrophils (%) (Auto) 69.1 % (45.0-75.0) Lymphocytes (%) (Auto) 14.6 % (20.0-45.0) L Monocytes (%) (Auto) 8.3 % (1.0-10.0) Eosinophils (%) (Auto) 6.8 % (0.0-3.0) H Basophils (%) (Auto) 1.3 % (0.0-2.0) Reticulocyte Count 1.5 % (0.0-2.0) Sodium Level 137 MMOL/L (136-145) Potassium Level 3.7 MMOL/L (3.5-5.1) Chloride Level 101 MMOL/L (98-107) Carbon Dioxide Level 32 MMOL/L (21-32) Anion Gap 4 (5-15) L Blood Urea Nitrogen 15 mg/dL (7-18) Creatinine 0.8 MG/DL (0.55-1.30) Estimat Glomerular Filtration Rate > 60 mL/min (>60) Glucose Level 100 MG/DL (74-106) Calcium Level 8.9 MG/DL (8.5-10.1) Magnesium Level 1.9 MG/DL (1.8-2.4) Iron Level 28 ug/dL (50-175) L Total Iron Binding Capacity 297 ug/dL (250-450) Percent Iron Saturation 9 % (15-50) L Unsaturated Iron Binding 269 ug/dL (112-346) Ferritin 38 NG/ML (8-388) Carcinoembryonic Antigen Pending Vitamin B12 Level 396 PG/ML (193-986) Folate Pending Thyroid Stimulating Hormone (TSH) 1.265 uiU/mL (0.360-3.740) Free Thyroxine 1.19 NG/DL (0.10-1.46) Microbiology Date/Time Source Procedure Growth Status 10/8/17 14:28 Urine,Clean Catch Urine Culture - Preliminary Gram Negative Bacillus 1 Resulted Intake and Output 02/20/17 02/21/17 19:00 07:00 Intake Total 780 ml Output Total 1100 ml Balance -320 ml Intake Oral 720 ml IV Total 60 ml Output Urine Total 1100 ml Objective General Appearance: alert, mild distress, obese EENT: PERRL/EOMI, normal ENT inspection, TMs normal Neck: non-tender, normal alignment, supple, normal inspection Cardiovascular: normal peripheral pulses, normal rate, regular rhythm, no gallop/murmur, no JVD Respiratory/Chest: chest wall non-tender, lungs clear, normal breath sounds, no respiratory distress, no accessory muscle use Abdomen: normal bowel sounds, non tender, soft, no organomegaly, no mass Extremities: normal range of motion, non-tender 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 Serial troponin levels neg (2) HTN (hypertension) (3) Morbid obesity (4) Gout (5) DVT, bilateral lower limbs Assessment & Plan: Discontinue eliquis due to possible rectal bleeding (6) Factor 5 Leiden mutation, heterozygous (7) Factor V Leiden Assessment & Plan: Continue eliquis (8) Rectal bleeding Assessment & Plan: See GI note. GI proceedures on hold. Status: not improved Assessment/Plan Discharge planning JO SCHMID Feb 20, 2017 16:38
--- NOTE | 2017-02-20 19:28 | General Progress Note ---
Assessment/Plan Assessment/Plan ASSESSMENT AND PLAN: 1. History of deep venous thrombosis of the bilateral lower extremities. Continue the patient on Eliquis. Currently, no evidence of progression of deep venous thrombosis. --> continue to monitor 2. Anemia secondary to history of vaginal bleeding. Uterine fibroids noted. Follow up with director of safety as outpatient 3. Anemia secondary to iron deficiency. Ferritin level has been ordered and currently pending 4. Lower extremity cellulitis. ID following 5. Factor V Leiden deficiency. 6. Pulmonary embolism. Subjective Constitutional: Reports: no symptoms HEENT: Reports: no symptoms Cardiovascular: Reports: no symptoms Respiratory: Reports: no symptoms Gastrointestinal/Abdominal: Reports: no symptoms Genitourinary: Reports: no symptoms Neurologic/Psychiatric: Reports: no symptoms Endocrine: Reports: no symptoms Hematologic/Lymphatic: Reports: no symptoms Allergies: Coded Allergies: SULFA (SULFONAMIDE ANTIBIOTICS) (Unverified Allergy, Unknown, 05/02/15) allergy history per Dr. Jones Subjective afebrile, no bleeding Objective Last 24 Hour Vital Signs Date Time Temp Pulse Resp B/P (MAP) Pulse Ox O2 Delivery O2 Flow Rate FiO2 02/20/17 16:00 83 02/20/17 16:00 97.3 81 19 119/84 94 Room Air 02/20/17 12:00 81 02/20/17 11:51 97.7 79 20 123/80 98 Room Air 02/20/17 08:00 90 02/20/17 08:00 97.9 78 20 135/74 96 Room Air 02/20/17 04:07 97.7 81 20 129/78 Room Air 02/20/17 04:00 83 02/20/17 00:00 97.9 82 20 131/67 100 Room Air 02/20/17 00:00 82 02/19/17 21:00 85 02/19/17 20:00 98.1 79 20 130/76 2 Nasal Cannula Intake and Output 02/20/17 02/21/17 19:00 07:00 Intake Total 1020 ml Output Total 1650 ml Balance -630 ml Intake Oral 960 ml IV Total 60 ml Output Urine Total 1650 ml # Bowel Movements 1 Laboratory Tests 02/20/17 02:05: Stool Occult Blood Negative 02/20/17 06:00: White Blood Count 11.7H, Red Blood Count 3.73L, Hemoglobin 9.8L, Hematocrit 31.1L, Mean Corpuscular Volume 83, Mean Corpuscular Hemoglobin 26.2L, Mean Corpuscular Hemoglobin Concent 31.5L, Red Cell Distribution Width 14.8, Platelet Count 225, Mean Platelet Volume 6.6, Neutrophils (%) (Auto) 69.1, Lymphocytes (%) (Auto) 14.6L, Monocytes (%) (Auto) 8.3, Eosinophils (%) (Auto) 6.8H, Basophils (%) (Auto) 1.3, Reticulocyte Count 1.5, Sodium Level 137, Potassium Level 3.7, Chloride Level 101, Carbon Dioxide Level 32, Anion Gap 4L, Blood Urea Nitrogen 15, Creatinine 0.8, Estimat Glomerular Filtration Rate > 60 , Glucose Level 100, Calcium Level 8.9, Magnesium Level 1.9, Iron Level 28L, Total Iron Binding Capacity 297, Percent Iron Saturation 9L, Unsaturated Iron Binding 269, Ferritin 38, Carcinoembryonic Antigen [Pending], Vitamin B12 Level 396, Folate [Pending], Thyroid Stimulating Hormone (TSH) 1.265, Free Thyroxine 1.19 Height (Feet): 6 Height (Inches): 1.00 Weight (Pounds): 449 General Appearance: no apparent distress EENT: normal ENT inspection Neck: normal inspection Cardiovascular: no gallop/murmur Respiratory/Chest: no accessory muscle use Abdomen: no organomegaly, no mass Edema: trace edema Skin: warm/dry Dinesh Rodríguez Feb 20, 2017 19:28
[2017-02-20 20:00] VITALS: BP 123/74
[2017-02-20] MEDS: Dyna-Hex 2% Top Sol 2oz TOPIC SCH (21:10)
[2017-02-21] VITALS: BP 141/68
[2017-02-21 04:00] VITALS: BP 128/54
[2017-02-21 06:24] LABS: EOSINOPHILS % (AUTO) 7.6 % (0.0-3.0); LYMPHOCYTES % (AUTO) 16.6 % (20.0-45.0); MEAN CORPUSCULAR HEMOGLOBIN 25.7 PG (27.0-31.0); MEAN CORPUSCULAR HGB CONC 30.9 G/DL (32.0-36.0); MEAN CORPUSCULAR VOLUME 83 FL (80-99); MEAN PLATELET VOLUME 6.9 FL (6.5-10.1); MONOCYTES % (AUTO) 7.3 % (1.0-10.0); NEUTROPHILS % (AUTO) 67.4 % (45.0-75.0); PLATELET COUNT 196 K/UL (150-450); RED BLOOD COUNT 3.84 M/UL (4.20-5.40); RED CELL DISTRIBUTION WIDTH 14.9 % (11.6-14.8)
[2017-02-21 06:54] LABS: ANION GAP 8 (5-15); CARBON DIOXIDE 20 MMOL/L (21-32); CHLORIDE 114 MMOL/L (98-107); CREATININE 0.4 MG/DL (0.55-1.30); GLOMERULAR FILTRATION RATE > 60 mL/min (>60); SODIUM 142 MMOL/L (136-145)
[2017-02-21 08:35] VITALS: BP 117/68
[2017-02-21 08:54] LABS: CALCIUM 5.2 MG/DL (8.5-10.1); POTASSIUM 2.1 MMOL/L (3.5-5.1)
[2017-02-21] MEDS: Hydromorphone 0.5mg/0.5ml inj IVP PRN ×2 (10:01→15:47)
[2017-02-21] MEDS: Docusate 100mg cap ORAL SCH (10:02)
[2017-02-21 10:26] LABS: BASOPHILS % (AUTO) 0.4 % (0.0-2.0); EOSINOPHILS % (AUTO) 7.9 % (0.0-3.0); LYMPHOCYTES % (AUTO) 14.4 % (20.0-45.0); MEAN CORPUSCULAR HEMOGLOBIN 26.6 PG (27.0-31.0); MEAN CORPUSCULAR HGB CONC 31.9 G/DL (32.0-36.0); MEAN CORPUSCULAR VOLUME 84 FL (80-99); MEAN PLATELET VOLUME 6.3 FL (6.5-10.1); MONOCYTES % (AUTO) 4.3 % (1.0-10.0); PLATELET COUNT 223 K/UL (150-450); RED BLOOD COUNT 3.88 M/UL (4.20-5.40); RED CELL DISTRIBUTION WIDTH 14.9 % (11.6-14.8); WHITE BLOOD COUNT 10.6 K/UL (4.8-10.8)
--- NOTE | 2017-02-21 10:28 | Infectious Diseases Prog Note ---
Assessment/Plan Assessment/Plan IMPRESSION: #Hematuria/cramping Abd pain- r/o kidney stone (?staghorn calculus) #Proteus bacteriuria- no dysuria but hematuria and RLQ pain- concern for possible infected kidney stone -u/a neg, ucx 70-80K P. mirabilis ( R. Ancef, Cipro, bactrim; S Zosyn, ertapenem); profile resembling ESBL # Leukocytosis.; resolved -CXR no acute disease #Venous stasis dermatitis, no cellulitis #Atypical chest pain.-?costocondritis- reproductible by palpation -ekg, trops neg #?GIB #History of deep venous thrombosis. -venous duplex no DVT BLE # Gout. # Hypertension. # Morbid obesity. RECOMMENDATION: -Obtain CT abd/p w/o to evaluate for kidney stone -s/p 2d Levaquin 02/20 -Will start IV Ertapenem 1g daily for possible infected kidney stone -cont pain management -Monitor CBC/BMP, temperatures Discussed with RN and with Dr Holguin. Subjective Allergies: Coded Allergies: SULFA (SULFONAMIDE ANTIBIOTICS) (Unverified Allergy, Unknown, 05/02/15) allergy history per Dr. Jones Subjective afebro;e c/o hematuria and cramping abd pain EGD/colonoscopy held Objective Vital Signs Last 24 Hour Vital Signs Date Time Temp Pulse Resp B/P (MAP) Pulse Ox O2 Delivery O2 Flow Rate FiO2 02/21/17 08:35 97.0 78 20 117/68 99 Room Air 02/21/17 04:00 98.1 76 22 128/54 98 Room Air 02/21/17 04:00 78 02/21/17 00:00 97.7 82 21 141/68 96 Room Air 02/21/17 00:00 80 02/20/17 20:00 82 02/20/17 20:00 97.2 81 20 123/74 97 Room Air 02/20/17 16:00 83 02/20/17 16:00 97.3 81 19 119/84 94 Room Air 02/20/17 12:00 81 02/20/17 11:51 97.7 79 20 123/80 98 Room Air Height (Feet): 6 Height (Inches): 1.00 Weight (Pounds): 445 Objective GENERAL APPEARANCE: The patient is morbidly obese, awake, alert, andoriented x3. HEAD AND NECK: Daisy conjunctivae. No oral lesions. Pupils reactive. HEART: S1 and S2 regular. chest pain reproducible by palpation LUNGS: Clear. ABDOMEN: Soft, obese.Mild TTP RLQ, +R CVAT EXTREMITIES: Edema of lower extremities with chronic stasis dermatitis with pigmentation, no evidence of cellulitis NEUROLOGIC: Awake, alert, and oriented x3. Microbiology Date/Time Source Procedure Growth Status 02/18/17 14:28 Urine,Clean Catch Urine Culture - Preliminary Proteus Mirabilis Resulted Laboratory Tests Test 02/21/17 05:33 02/21/17 10:15 White Blood Count 11.0 K/UL (4.8-10.8) H Pending Red Blood Count 3.84 M/UL (4.20-5.40) L Pending Hemoglobin 9.9 G/DL (12.0-16.0) L Pending Hematocrit 31.9 % (37.0-47.0) L Pending Mean Corpuscular Volume 83 FL (80-99) Pending Mean Corpuscular Hemoglobin 25.7 PG (27.0-31.0) L Pending Mean Corpuscular Hemoglobin Concent 30.9 G/DL (32.0-36.0) L Pending Red Cell Distribution Width 14.9 % (11.6-14.8) H Pending Platelet Count 196 K/UL (150-450) Pending Mean Platelet Volume 6.9 FL (6.5-10.1) Pending Neutrophils (%) (Auto) 67.4 % (45.0-75.0) Pending Lymphocytes (%) (Auto) 16.6 % (20.0-45.0) L Pending Monocytes (%) (Auto) 7.3 % (1.0-10.0) Pending Eosinophils (%) (Auto) 7.6 % (0.0-3.0) H Pending Basophils (%) (Auto) 1.0 % (0.0-2.0) Pending Sodium Level 142 MMOL/L (136-145) Pending Potassium Level 2.1 MMOL/L (3.5-5.1) *L Pending Chloride Level 114 MMOL/L (98-107) H Pending Carbon Dioxide Level 20 MMOL/L (21-32) L Pending Anion Gap 8 (5-15) Blood Urea Nitrogen 8 mg/dL (7-18) Pending Creatinine 0.4 MG/DL (0.55-1.30) L Pending Estimat Glomerular Filtration Rate > 60 mL/min (>60) Pending Glucose Level 65 MG/DL (74-106) L Pending Calcium Level 5.2 MG/DL (8.5-10.1) #*L Pending Current Medications Medications (Trade) Dose Ordered Sig/Key Route PRN Reason Start Time Stop Time Status Last Admin Dose Admin Acetaminophen (Tylenol) 650 mg Q4H PRN ORAL Mild Pain (Pain Scale 1-3) 02/16/17 19:15 03/18/17 19:14 02/18/17 01:49 Acetaminophen (Tylenol) 650 mg Q4H PRN ORAL fever 02/16/17 19:15 03/18/17 19:14 Acetaminophen (Tylenol) 650 mg Q4H PRN RECTAL Mild Pain (Pain Scale 1-3) 02/16/17 19:15 03/18/17 19:14 Acetaminophen/ Codeine Phosphate (Tylenol #3) 1 tab Q4H PRN ORAL FOR MODERATE PAIN 02/16/17 19:00 02/23/17 18:59 Acetaminophen/ Codeine Phosphate (Tylenol #3) 2 tab Q6H PRN ORAL SEVERE PAIN 02/16/17 19:00 02/23/17 18:59 Acetaminophen/ Codeine Phosphate (Tylenol #4) 1 ea Q6H PRN ORAL for severe breakthru pain 02/16/17 19:15 02/23/17 19:14 Bisacodyl (Dulcolax) 10 mg DAILYPRN PRN RECTAL Constipation 02/16/17 19:15 03/18/17 19:14 Cetylpyridinium Chloride (Cepacol) 1 lozenge Q4H PRN JEREMY THROAT IRRITATION 02/20/17 14:45 03/22/17 14:44 02/21/17 00:40 Chlorhexidine Gluconate (Priti-Hex 2%) 1 applic DAILY@1999 TOPIC 02/19/17 20:00 03/21/17 19:59 02/20/17 21:10 Dextrose (Dextrose 50%) STAT PRN IV Hypoglycemia 02/16/17 19:15 03/18/17 19:14 Diphenhydramine HCl (Benadryl) 25 mg Q6H PRN IVP Itching 02/20/17 07:00 03/22/17 06:59 02/20/17 21:11 Docusate Sodium (Colace) 100 mg EVERY 12 HOURS ORAL 02/16/17 21:00 03/18/17 20:59 02/21/17 10:02 Furosemide (Lasix) 20 mg BID ORAL 02/16/17 19:45 03/18/17 19:44 02/21/17 10:01 Hydromorphone HCl (Dilaudid) 0.5 mg Q6HR PRN IVP Severe Pain (Pain Scale 7-10) 02/17/17 08:30 02/24/17 08:29 02/21/17 10:01 Magnesium Hydroxide (Mom) 30 ml HSPRN PRN ORAL Constipation 02/16/17 19:15 03/18/17 19:14 Nitroglycerin (Ntg) 0.4 mg Q5M PRN SL Prn Chest Pain 02/16/17 17:15 03/18/17 17:14 02/16/17 17:35 Ondansetron HCl (Zofran) 4 mg Q4HR PRN IVP Nausea & Vomiting 02/17/17 08:30 03/19/17 08:29 02/17/17 09:33 Polyethylene Glycol (Miralax) 17 gm DAILYPRN PRN ORAL Constipation 02/16/17 19:15 03/18/17 19:14 Angela Sampson M.D. Feb 21, 2017 10:27
[2017-02-21 11:09] LABS: ANION GAP 6 (5-15); CALCIUM 8.5 MG/DL (8.5-10.1); CARBON DIOXIDE 29 MMOL/L (21-32); CHLORIDE 102 MMOL/L (98-107); CREATININE 0.9 MG/DL (0.55-1.30); GLOMERULAR FILTRATION RATE > 60 mL/min (>60); POTASSIUM 3.5 MMOL/L (3.5-5.1); SODIUM 137 MMOL/L (136-145)
--- NOTE | 2017-02-21 11:25 | Internal Med Progress Note ---
Subjective Date of Service: Feb 21, 2017 Physician Name SchmidJo Attending Physician Bj Dee MD Current Medications Medications (Trade) Dose Ordered Sig/Key Route PRN Reason Start Time Stop Time Status Last Admin Dose Admin Acetaminophen (Tylenol) 650 mg Q4H PRN ORAL Mild Pain (Pain Scale 1-3) 02/16/17 19:15 03/18/17 19:14 02/18/17 01:49 Acetaminophen (Tylenol) 650 mg Q4H PRN ORAL fever 02/16/17 19:15 03/18/17 19:14 Acetaminophen (Tylenol) 650 mg Q4H PRN RECTAL Mild Pain (Pain Scale 1-3) 02/16/17 19:15 03/18/17 19:14 Acetaminophen/ Codeine Phosphate (Tylenol #3) 1 tab Q4H PRN ORAL FOR MODERATE PAIN 02/16/17 19:00 02/23/17 18:59 Acetaminophen/ Codeine Phosphate (Tylenol #3) 2 tab Q6H PRN ORAL SEVERE PAIN 02/16/17 19:00 02/23/17 18:59 Acetaminophen/ Codeine Phosphate (Tylenol #4) 1 ea Q6H PRN ORAL for severe breakthru pain 02/16/17 19:15 02/23/17 19:14 Bisacodyl (Dulcolax) 10 mg DAILYPRN PRN RECTAL Constipation 02/16/17 19:15 03/18/17 19:14 Cetylpyridinium Chloride (Cepacol) 1 lozenge Q4H PRN JEREMY THROAT IRRITATION 02/20/17 14:45 03/22/17 14:44 02/21/17 00:40 Chlorhexidine Gluconate (Priti-Hex 2%) 1 applic DAILY@2000 TOPIC 02/19/17 20:00 03/21/17 19:59 02/20/17 21:10 Dextrose (Dextrose 50%) STAT PRN IV Hypoglycemia 02/16/17 19:15 03/18/17 19:14 Diphenhydramine HCl (Benadryl) 25 mg Q6H PRN IVP Itching 02/20/17 07:00 03/22/17 06:59 02/20/17 21:11 Docusate Sodium (Colace) 100 mg EVERY 12 HOURS ORAL 02/16/17 21:00 03/18/17 20:59 02/21/17 10:02 Furosemide (Lasix) 20 mg BID ORAL 02/16/17 19:45 03/18/17 19:44 02/21/17 10:01 Hydromorphone HCl (Dilaudid) 0.5 mg Q6HR PRN IVP Severe Pain (Pain Scale 7-10) 02/17/17 08:30 02/24/17 08:29 02/21/17 10:01 Magnesium Hydroxide (Mom) 30 ml HSPRN PRN ORAL Constipation 02/16/17 19:15 03/18/17 19:14 Nitroglycerin (Ntg) 0.4 mg Q5M PRN SL Prn Chest Pain 02/16/17 17:15 03/18/17 17:14 02/16/17 17:35 Ondansetron HCl (Zofran) 4 mg Q4HR PRN IVP Nausea & Vomiting 02/17/17 08:30 03/19/17 08:29 02/17/17 09:33 Polyethylene Glycol (Miralax) 17 gm DAILYPRN PRN ORAL Constipation 02/16/17 19:15 03/18/17 19:14 Allergies: Coded Allergies: SULFA (SULFONAMIDE ANTIBIOTICS) (Unverified Allergy, Unknown, 05/02/15) allergy history per Dr. Robert BAUER Limited/Unobtainable: No Constitutional: Reports: no symptoms HEENT: Reports: no symptoms Cardiovascular: Reports: no symptoms Respiratory: Reports: no symptoms Gastrointestinal/Abdominal: Reports: no symptoms Genitourinary: Reports: no symptoms Neurologic/Psychiatric: Reports: no symptoms Subjective 56 YO F admitted with chest pain. Cover for Int Med-Dr Dee. Objective Last Vital Signs Date Time Temp Pulse Resp B/P (MAP) Pulse Ox O2 Delivery O2 Flow Rate FiO2 02/21/17 08:35 97.0 78 20 117/68 99 Room Air 02/19/17 16:00 2.0 Laboratory Tests Test 02/21/17 05:33 02/21/17 10:15 White Blood Count 11.0 K/UL (4.8-10.8) H 10.6 K/UL (4.8-10.8) Red Blood Count 3.84 M/UL (4.20-5.40) L 3.88 M/UL (4.20-5.40) L Hemoglobin 9.9 G/DL (12.0-16.0) L 10.3 G/DL (12.0-16.0) L Hematocrit 31.9 % (37.0-47.0) L 32.4 % (37.0-47.0) L Mean Corpuscular Volume 83 FL (80-99) 84 FL (80-99) Mean Corpuscular Hemoglobin 25.7 PG (27.0-31.0) L 26.6 PG (27.0-31.0) L Mean Corpuscular Hemoglobin Concent 30.9 G/DL (32.0-36.0) L 31.9 G/DL (32.0-36.0) L Red Cell Distribution Width 14.9 % (11.6-14.8) H 14.9 % (11.6-14.8) H Platelet Count 196 K/UL (150-450) 223 K/UL (150-450) Mean Platelet Volume 6.9 FL (6.5-10.1) 6.3 FL (6.5-10.1) L Neutrophils (%) (Auto) 67.4 % (45.0-75.0) 73.0 % (45.0-75.0) Lymphocytes (%) (Auto) 16.6 % (20.0-45.0) L 14.4 % (20.0-45.0) L Monocytes (%) (Auto) 7.3 % (1.0-10.0) 4.3 % (1.0-10.0) Eosinophils (%) (Auto) 7.6 % (0.0-3.0) H 7.9 % (0.0-3.0) H Basophils (%) (Auto) 1.0 % (0.0-2.0) 0.4 % (0.0-2.0) Sodium Level 142 MMOL/L (136-145) 137 MMOL/L (136-145) Potassium Level 2.1 MMOL/L (3.5-5.1) *L 3.5 MMOL/L (3.5-5.1) # Chloride Level 114 MMOL/L (98-107) H 102 MMOL/L (98-107) Carbon Dioxide Level 20 MMOL/L (21-32) L 29 MMOL/L (21-32) Anion Gap 8 (5-15) 6 (5-15) Blood Urea Nitrogen 8 mg/dL (7-18) 12 mg/dL (7-18) Creatinine 0.4 MG/DL (0.55-1.30) L 0.9 MG/DL (0.55-1.30) # Estimat Glomerular Filtration Rate > 60 mL/min (>60) > 60 mL/min (>60) Glucose Level 65 MG/DL (74-106) L 170 MG/DL (74-106) #H Calcium Level 5.2 MG/DL (8.5-10.1) #*L 8.5 MG/DL (8.5-10.1) # Microbiology Date/Time Source Procedure Growth Status 02/18/17 14:28 Urine,Clean Catch Urine Culture - Preliminary Proteus Mirabilis Resulted Objective General Appearance: alert, mild distress, obese EENT: PERRL/EOMI, normal ENT inspection, TMs normal Neck: non-tender, normal alignment, supple, normal inspection Cardiovascular: normal peripheral pulses, normal rate, regular rhythm, no gallop/murmur, no JVD Respiratory/Chest: chest wall non-tender, lungs clear, normal breath sounds, no respiratory distress, no accessory muscle use Abdomen: normal bowel sounds, non tender, soft, no organomegaly, no mass Extremities: normal range of motion, non-tender 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 Serial troponin levels neg (2) HTN (hypertension) (3) Morbid obesity (4) Gout (5) DVT, bilateral lower limbs Assessment & Plan: Discontinue eliquis due to possible rectal bleeding (6) Factor 5 Leiden mutation, heterozygous (7) Factor V Leiden Assessment & Plan: Continue eliquis (8) Rectal bleeding Assessment & Plan: See GI note. GI proceedures on hold. (9) Hypokalemia Assessment & Plan: replace potassium Status: stable Assessment/Plan Discharge planning: [facility] JO SCHMID Feb 21, 2017 11:25
[2017-02-21 11:44] VITALS: BP 143/75
[2017-02-21] MEDS ORDERED: FUROSEMIDE40 MG ORAL (12:43)
[2017-02-21] MEDS ORDERED: Ertapenem 1 GM in NS 55 ML IVPB SCH (14:00)
[2017-02-21] MEDS ORDERED: INVANZ1 G1 IM (15:11)
--- NOTE | 2017-02-21 15:43 | GI Progress Note ---
Assessment/Plan Problems: (1) Sepsis ICD Codes: A41.9 - Sepsis, unspecified organism SNOMED: 11607310 (2) Hypoalbuminemia ICD Codes: E88.09 - Other disorders of plasma-protein metabolism, not elsewhere classified SNOMED: 241766039 (3) Anemia ICD Codes: D64.9 - Anemia SNOMED: 521154602 (4) Obesity ICD Codes: E66.9 - Obesity, unspecified SNOMED: 421330096 Status: stable Status Narrative Discussed with Dr. Galo. Assessment/Plan Endoscopy Procedure Note Indication for Procedure: anemia Procedures Performed: EGD, colonoscopy Operative Findings/Diagnosis: mild kemi - bx, colon negative ISSA MCCORMACK - Sep 02, 2015 11:09 hold GI procedures at this time, pt denies any GI bleed >> ok for DC OB stool r/o GI bleed >> negative iron deficient >> venofer monitor H&H, prn transfusions cardiac diet, tolerating bowel regime ppi IV hydration + electrolyte correction fu labs patient is one Eliquis >> must be dc'd min 48 hours prior to any endoscopic procedures. Subjective Subjective abdominal discomfort Objective Last 24 Hour Vital Signs Date Time Temp Pulse Resp B/P (MAP) Pulse Ox O2 Delivery O2 Flow Rate FiO2 02/21/17 12:00 84 02/21/17 11:44 97.5 76 20 143/75 97 Room Air 02/21/17 08:35 97.0 78 20 117/68 99 Room Air 02/21/17 08:00 84 02/21/17 04:00 98.1 76 22 128/54 98 Room Air 02/21/17 04:00 78 02/21/17 00:00 97.7 82 21 141/68 96 Room Air 02/21/17 00:00 80 02/20/17 20:00 82 02/20/17 20:00 97.2 81 20 123/74 97 Room Air 02/20/17 16:00 83 02/20/17 16:00 97.3 81 19 119/84 94 Room Air Intake and Output 02/21/17 02/22/17 19:00 07:00 Intake Total 240 ml Output Total 250 ml Balance -10 ml Intake Oral 240 ml Output Urine Total 250 ml Laboratory Tests Test 02/21/17 05:33 02/21/17 10:15 White Blood Count 11.0 K/UL (4.8-10.8) H 10.6 K/UL (4.8-10.8) Red Blood Count 3.84 M/UL (4.20-5.40) L 3.88 M/UL (4.20-5.40) L Hemoglobin 9.9 G/DL (12.0-16.0) L 10.3 G/DL (12.0-16.0) L Hematocrit 31.9 % (37.0-47.0) L 32.4 % (37.0-47.0) L Mean Corpuscular Volume 83 FL (80-99) 84 FL (80-99) Mean Corpuscular Hemoglobin 25.7 PG (27.0-31.0) L 26.6 PG (27.0-31.0) L Mean Corpuscular Hemoglobin Concent 30.9 G/DL (32.0-36.0) L 31.9 G/DL (32.0-36.0) L Red Cell Distribution Width 14.9 % (11.6-14.8) H 14.9 % (11.6-14.8) H Platelet Count 196 K/UL (150-450) 223 K/UL (150-450) Mean Platelet Volume 6.9 FL (6.5-10.1) 6.3 FL (6.5-10.1) L Neutrophils (%) (Auto) 67.4 % (45.0-75.0) 73.0 % (45.0-75.0) Lymphocytes (%) (Auto) 16.6 % (20.0-45.0) L 14.4 % (20.0-45.0) L Monocytes (%) (Auto) 7.3 % (1.0-10.0) 4.3 % (1.0-10.0) Eosinophils (%) (Auto) 7.6 % (0.0-3.0) H 7.9 % (0.0-3.0) H Basophils (%) (Auto) 1.0 % (0.0-2.0) 0.4 % (0.0-2.0) Sodium Level 142 MMOL/L (136-145) 137 MMOL/L (136-145) Potassium Level 2.1 MMOL/L (3.5-5.1) *L 3.5 MMOL/L (3.5-5.1) # Chloride Level 114 MMOL/L (98-107) H 102 MMOL/L (98-107) Carbon Dioxide Level 20 MMOL/L (21-32) L 29 MMOL/L (21-32) Anion Gap 8 (5-15) 6 (5-15) Blood Urea Nitrogen 8 mg/dL (7-18) 12 mg/dL (7-18) Creatinine 0.4 MG/DL (0.55-1.30) L 0.9 MG/DL (0.55-1.30) # Estimat Glomerular Filtration Rate > 60 mL/min (>60) > 60 mL/min (>60) Glucose Level 65 MG/DL (74-106) L 170 MG/DL (74-106) #H Calcium Level 5.2 MG/DL (8.5-10.1) #*L 8.5 MG/DL (8.5-10.1) # Height (Feet): 6 Height (Inches): 1.00 Weight (Pounds): 445 General Appearance: no apparent distress, alert, morbidly obese Cardiovascular: normal rate Respiratory/Chest: normal breath sounds, no respiratory distress Abdominal Exam: normal bowel sounds, non tender, soft Genitourinary/Rectal: normal rectal exam Extremities: normal range of motion, non-tender Vane New N.P. Feb 21, 2017 15:43
[2017-02-21 16:04] VITALS: BP 144/87
--- NOTE | 2017-02-21 17:28 | General Progress Note ---
Assessment/Plan Assessment/Plan ASSESSMENT AND PLAN: 1. History of deep venous thrombosis of the bilateral lower extremities. Continue the patient on Eliquis. Currently, no evidence of progression of deep venous thrombosis. --> continue to monitor, continue eliquis 2. Anemia secondary to history of vaginal bleeding. Uterine fibroids noted. Follow up with on car supervisor as outpatient 3. Anemia secondary to iron deficiency. Ferritin level has been ordered and currently pending 4. Lower extremity cellulitis. ID following 5. Factor V Leiden deficiency. 6. Pulmonary embolism. Subjective Constitutional: Reports: no symptoms HEENT: Reports: no symptoms Cardiovascular: Reports: no symptoms Respiratory: Reports: no symptoms Gastrointestinal/Abdominal: Reports: no symptoms Genitourinary: Reports: no symptoms Neurologic/Psychiatric: Reports: no symptoms Endocrine: Reports: no symptoms Hematologic/Lymphatic: Reports: no symptoms Allergies: Coded Allergies: SULFA (SULFONAMIDE ANTIBIOTICS) (Unverified Allergy, Unknown, 05/02/15) allergy history per Dr. Jones Subjective NAD Objective Last 24 Hour Vital Signs Date Time Temp Pulse Resp B/P (MAP) Pulse Ox O2 Delivery O2 Flow Rate FiO2 02/21/17 16:04 97.7 81 20 144/87 96 Room Air 02/21/17 12:00 84 02/21/17 11:44 97.5 76 20 143/75 97 Room Air 02/21/17 08:35 97.0 78 20 117/68 99 Room Air 02/21/17 08:00 84 02/21/17 04:00 98.1 76 22 128/54 98 Room Air 02/21/17 04:00 78 02/21/17 00:00 97.7 82 21 141/68 96 Room Air 02/21/17 00:00 80 02/20/17 20:00 82 02/20/17 20:00 97.2 81 20 123/74 97 Room Air Intake and Output 02/21/17 02/22/17 19:00 07:00 Intake Total 590 ml Output Total 750 ml Balance -160 ml Intake Oral 480 ml IV Total 110 ml Output Urine Total 750 ml # Bowel Movements 1 Laboratory Tests 02/21/17 05:33: White Blood Count 11.0H, Red Blood Count 3.84L, Hemoglobin 9.9L, Hematocrit 31.9L, Mean Corpuscular Volume 83, Mean Corpuscular Hemoglobin 25.7L, Mean Corpuscular Hemoglobin Concent 30.9L, Red Cell Distribution Width 14.9H, Platelet Count 196, Mean Platelet Volume 6.9, Neutrophils (%) (Auto) 67.4, Lymphocytes (%) (Auto) 16.6L, Monocytes (%) (Auto) 7.3, Eosinophils (%) (Auto) 7.6H, Basophils (%) (Auto) 1.0, Sodium Level 142, Potassium Level 2.1*L, Chloride Level 114H, Carbon Dioxide Level 20L, Anion Gap 8, Blood Urea Nitrogen 8, Creatinine 0.4L, Estimat Glomerular Filtration Rate > 60, Glucose Level 65L, Calcium Level 5.2#*L 02/21/17 10:15: White Blood Count 10.6, Red Blood Count 3.88L, Hemoglobin 10.3L, Hematocrit 32.4L, Mean Corpuscular Volume 84, Mean Corpuscular Hemoglobin 26.6L, Mean Corpuscular Hemoglobin Concent 31.9L, Red Cell Distribution Width 14.9H, Platelet Count 223, Mean Platelet Volume 6.3L, Neutrophils (%) (Auto) 73.0, Lymphocytes (%) (Auto) 14.4L, Monocytes (%) (Auto) 4.3, Eosinophils (%) (Auto) 7.9H, Basophils (%) (Auto) 0.4, Sodium Level 137, Potassium Level 3.5#, Chloride Level 102, Carbon Dioxide Level 29, Anion Gap 6, Blood Urea Nitrogen 12 , Creatinine 0.9#, Estimat Glomerular Filtration Rate > 60, Glucose Level 170#H , Calcium Level 8.5# Height (Feet): 6 Height (Inches): 1.00 Weight (Pounds): 445 General Appearance: no apparent distress EENT: TMs normal Neck: supple Cardiovascular: no gallop/murmur Respiratory/Chest: no accessory muscle use Pelvis: no masses Extremities: non-tender Neurologic: normal mood/affect Skin: warm/dry Dinesh Rodríguez Feb 21, 2017 17:28
--- NOTE | 2017-02-21 17:59 | Cardiology Progress Note ---
Assessment/Plan Assessment/Plan 1. Atypical chest pain reproducible on palpation of the chest wall. 2. Morbid obesity. 3. History of deep venous thrombosis. 4. History of hypertension. 5. History of cellulitis. all trop neg dobut stress echo 06/2016 neg ok to dc home from cardiac viw point i was called reg abn lab repeated were better some k supplemntation was given Subjective Subjective feel fine goign tricia e Objective Last 24 Hour Vital Signs Date Time Temp Pulse Resp B/P (MAP) Pulse Ox O2 Delivery O2 Flow Rate FiO2 02/21/17 16:04 97.7 81 20 144/87 96 Room Air 02/21/17 12:00 84 02/21/17 11:44 97.5 76 20 143/75 97 Room Air 02/21/17 08:35 97.0 78 20 117/68 99 Room Air 02/21/17 08:00 84 02/21/17 04:00 98.1 76 22 128/54 98 Room Air 02/21/17 04:00 78 02/21/17 00:00 97.7 82 21 141/68 96 Room Air 02/21/17 00:00 80 02/20/17 20:00 82 02/20/17 20:00 97.2 81 20 123/74 97 Room Air General Appearance: no apparent distress, obese, patient on isolation Intake and Output 02/21/17 02/22/17 19:00 07:00 Intake Total 590 ml Output Total 750 ml Balance -160 ml Intake Oral 480 ml IV Total 110 ml Output Urine Total 750 ml # Bowel Movements 1 Laboratory Tests Test 02/21/17 05:33 02/21/17 10:15 White Blood Count 11.0 K/UL (4.8-10.8) H 10.6 K/UL (4.8-10.8) Red Blood Count 3.84 M/UL (4.20-5.40) L 3.88 M/UL (4.20-5.40) L Hemoglobin 9.9 G/DL (12.0-16.0) L 10.3 G/DL (12.0-16.0) L Hematocrit 31.9 % (37.0-47.0) L 32.4 % (37.0-47.0) L Mean Corpuscular Volume 83 FL (80-99) 84 FL (80-99) Mean Corpuscular Hemoglobin 25.7 PG (27.0-31.0) L 26.6 PG (27.0-31.0) L Mean Corpuscular Hemoglobin Concent 30.9 G/DL (32.0-36.0) L 31.9 G/DL (32.0-36.0) L Red Cell Distribution Width 14.9 % (11.6-14.8) H 14.9 % (11.6-14.8) H Platelet Count 196 K/UL (150-450) 223 K/UL (150-450) Mean Platelet Volume 6.9 FL (6.5-10.1) 6.3 FL (6.5-10.1) L Neutrophils (%) (Auto) 67.4 % (45.0-75.0) 73.0 % (45.0-75.0) Lymphocytes (%) (Auto) 16.6 % (20.0-45.0) L 14.4 % (20.0-45.0) L Monocytes (%) (Auto) 7.3 % (1.0-10.0) 4.3 % (1.0-10.0) Eosinophils (%) (Auto) 7.6 % (0.0-3.0) H 7.9 % (0.0-3.0) H Basophils (%) (Auto) 1.0 % (0.0-2.0) 0.4 % (0.0-2.0) Sodium Level 142 MMOL/L (136-145) 137 MMOL/L (136-145) Potassium Level 2.1 MMOL/L (3.5-5.1) *L 3.5 MMOL/L (3.5-5.1) # Chloride Level 114 MMOL/L (98-107) H 102 MMOL/L (98-107) Carbon Dioxide Level 20 MMOL/L (21-32) L 29 MMOL/L (21-32) Anion Gap 8 (5-15) 6 (5-15) Blood Urea Nitrogen 8 mg/dL (7-18) 12 mg/dL (7-18) Creatinine 0.4 MG/DL (0.55-1.30) L 0.9 MG/DL (0.55-1.30) # Estimat Glomerular Filtration Rate > 60 mL/min (>60) > 60 mL/min (>60) Glucose Level 65 MG/DL (74-106) L 170 MG/DL (74-106) #H Calcium Level 5.2 MG/DL (8.5-10.1) #*L 8.5 MG/DL (8.5-10.1) # SADIE GONSALEZ Feb 21, 2017 17:59
[2017-02-21] MEDS ORDERED: Eliquis 2.5mg tablet ORAL SCH (18:00)
--- NOTE | 2017-02-21 18:38 | Pulmonology Progress Note ---
Assessment/Plan Problems: (1) ACS (acute coronary syndrome) (2) Atypical psychosis (3) Gout (4) HTN (hypertension) (5) Factor 5 Leiden mutation, heterozygous (6) Obesity (7) Leukocytosis Assessment/Plan GI evaluation for lower GI bleeding hold Apixiban and Aspirine on empiric levo f/u cardiology recommendations med/surg if ok with cardio Hem evaluation. gi evaluation appreciated for colonoscopy check h/h Subjective ROS Limited/Unobtainable: No Constitutional: Reports: fatigue Respiratory: Reports: shortness of breath, dyspnea on exertion Cardiovascular: Reports: chest pain Hematologic: Reports: bruising Musculoskeletal: Reports: pain, swelling, stiffness Allergies: Coded Allergies: SULFA (SULFONAMIDE ANTIBIOTICS) (Unverified Allergy, Unknown, 05/02/15) allergy history per Dr. Jones Objective Last 24 Hour Vital Signs Date Time Temp Pulse Resp B/P (MAP) Pulse Ox O2 Delivery O2 Flow Rate FiO2 02/21/17 16:04 97.7 81 20 144/87 96 Room Air 02/21/17 12:00 84 02/21/17 11:44 97.5 76 20 143/75 97 Room Air 02/21/17 08:35 97.0 78 20 117/68 99 Room Air 02/21/17 08:00 84 02/21/17 04:00 98.1 76 22 128/54 98 Room Air 02/21/17 04:00 78 02/21/17 00:00 97.7 82 21 141/68 96 Room Air 02/21/17 00:00 80 02/20/17 20:00 82 02/20/17 20:00 97.2 81 20 123/74 97 Room Air Intake and Output 02/21/17 02/22/17 19:00 07:00 Intake Total 830 ml Output Total 1000 ml Balance -170 ml Intake Oral 720 ml IV Total 110 ml Output Urine Total 1000 ml # Bowel Movements 1 General Appearance: no acute distress HEENT: normocephalic, atraumatic, PERRL Respiratory/Chest: lungs clear, normal breath sounds, no respiratory distress, chest wall tender Breasts: no masses Cardiovascular: normal peripheral pulses, normal rate, regular rhythm, no JVD Abdomen: normal bowel sounds, soft, non tender, no organomegaly, non distended Genitourinary: normal external genitalia Extremities: no cyanosis Skin: rash, lesions Neurologic/Psychiatric: emergency medical dispatcher II-XII grossly normal, no motor/sensory deficits Laboratory Tests 02/21/17 05:33: White Blood Count 11.0H, Red Blood Count 3.84L, Hemoglobin 9.9L, Hematocrit 31.9L, Mean Corpuscular Volume 83, Mean Corpuscular Hemoglobin 25.7L, Mean Corpuscular Hemoglobin Concent 30.9L, Red Cell Distribution Width 14.9H, Platelet Count 196, Mean Platelet Volume 6.9, Neutrophils (%) (Auto) 67.4, Lymphocytes (%) (Auto) 16.6L, Monocytes (%) (Auto) 7.3, Eosinophils (%) (Auto) 7.6H, Basophils (%) (Auto) 1.0, Sodium Level 142, Potassium Level 2.1*L, Chloride Level 114H, Carbon Dioxide Level 20L, Anion Gap 8, Blood Urea Nitrogen 8, Creatinine 0.4L, Estimat Glomerular Filtration Rate > 60, Glucose Level 65L, Calcium Level 5.2#*L 02/21/17 10:15: White Blood Count 10.6, Red Blood Count 3.88L, Hemoglobin 10.3L, Hematocrit 32.4L, Mean Corpuscular Volume 84, Mean Corpuscular Hemoglobin 26.6L, Mean Corpuscular Hemoglobin Concent 31.9L, Red Cell Distribution Width 14.9H, Platelet Count 223, Mean Platelet Volume 6.3L, Neutrophils (%) (Auto) 73.0, Lymphocytes (%) (Auto) 14.4L, Monocytes (%) (Auto) 4.3, Eosinophils (%) (Auto) 7.9H, Basophils (%) (Auto) 0.4, Sodium Level 137, Potassium Level 3.5#, Chloride Level 102, Carbon Dioxide Level 29, Anion Gap 6, Blood Urea Nitrogen 12 , Creatinine 0.9#, Estimat Glomerular Filtration Rate > 60, Glucose Level 170#H , Calcium Level 8.5# Current Medications Medications (Trade) Dose Ordered Sig/Key Route PRN Reason Start Time Stop Time Status Last Admin Dose Admin Acetaminophen (Tylenol) 650 mg Q4H PRN ORAL Mild Pain (Pain Scale 1-3) 02/16/17 19:15 03/18/17 19:14 02/18/17 01:49 Acetaminophen (Tylenol) 650 mg Q4H PRN ORAL fever 02/16/17 19:15 03/18/17 19:14 Acetaminophen (Tylenol) 650 mg Q4H PRN RECTAL Mild Pain (Pain Scale 1-3) 02/16/17 19:15 03/18/17 19:14 Acetaminophen/ Codeine Phosphate (Tylenol #3) 1 tab Q4H PRN ORAL FOR MODERATE PAIN 02/16/17 19:00 02/23/17 18:59 Acetaminophen/ Codeine Phosphate (Tylenol #3) 2 tab Q6H PRN ORAL SEVERE PAIN 02/16/17 19:00 02/23/17 18:59 Acetaminophen/ Codeine Phosphate (Tylenol #4) 1 ea Q6H PRN ORAL for severe breakthru pain 02/16/17 19:15 02/23/17 19:14 Apixaban (Eliquis) 5 mg BID ORAL 02/21/17 18:00 03/23/17 17:59 Bisacodyl (Dulcolax) 10 mg DAILYPRN PRN RECTAL Constipation 02/16/17 19:15 03/18/17 19:14 Cetylpyridinium Chloride (Cepacol) 1 lozenge Q4H PRN JEREMY THROAT IRRITATION 02/20/17 14:45 03/22/17 14:44 02/21/17 00:40 Chlorhexidine Gluconate (Priti-Hex 2%) 1 applic DAILY@2000 TOPIC 02/19/17 20:00 03/21/17 19:59 02/20/17 21:10 Dextrose (Dextrose 50%) STAT PRN IV Hypoglycemia 02/16/17 19:15 03/18/17 19:14 Diphenhydramine HCl (Benadryl) 25 mg Q6H PRN IVP Itching 02/20/17 07:00 03/22/17 06:59 02/20/17 21:11 Docusate Sodium (Colace) 100 mg EVERY 12 HOURS ORAL 02/16/17 21:00 03/18/17 20:59 02/21/17 10:02 Ertapenem 1 gm/ Sodium Chloride 55 ml @ 110 mls/hr Q24H IVPB 02/21/17 14:00 02/26/17 13:59 02/21/17 14:29 Furosemide (Lasix) 20 mg BID ORAL 02/16/17 19:45 03/18/17 19:44 02/21/17 10:01 Hydromorphone HCl (Dilaudid) 0.5 mg Q6HR PRN IVP Severe Pain (Pain Scale 7-10) 02/17/17 08:30 02/24/17 08:29 02/21/17 15:47 Magnesium Hydroxide (Mom) 30 ml HSPRN PRN ORAL Constipation 02/16/17 19:15 03/18/17 19:14 Nitroglycerin (Ntg) 0.4 mg Q5M PRN SL Prn Chest Pain 02/16/17 17:15 03/18/17 17:14 02/16/17 17:35 Ondansetron HCl (Zofran) 4 mg Q4HR PRN IVP Nausea & Vomiting 02/17/17 08:30 03/19/17 08:29 02/17/17 09:33 Polyethylene Glycol (Miralax) 17 gm DAILYPRN PRN ORAL Constipation 02/16/17 19:15 03/18/17 19:14 VIKTORIYA CONNOR Feb 21, 2017 18:38
[2017-02-21] MEDS ORDERED: Tubing IV Secondary IV ONE (19:10)
[2017-02-21] MEDS ORDERED: NS 275ml ONE (19:10)
--- NOTE | 2017-02-22 16:01 | Discharge Summary ---
Discharge Summary Hospital Course Date of Admission Feb 16, 2017 at 16:26 Date of Discharge Feb 21, 2017 at 19:11 Admitting Diagnosis ACS HPI Marielle Mccormack is a 56 year old female who was admitted on Feb 16, 2017 at 16: 26 for Acute Coronary Syndrome Hospital Course [id number] Discharge Discharge Disposition Patient was discharged to SNF/Subacute Facility(03) Discharge Diagnoses: Tabby Munroe NP Feb 22, 2017 16:01
--- NOTE | 2017-02-22 23:12 | Cardiology Report ---
APPROVED REPORT EKG Measurement Heart [id number] Sinus rhythm with occasional premature ventricular complexes Low voltage QRS Borderline ECG
--- NOTE | 2017-02-23 04:15 | Discharge Summary 2 SIG ---
DATE OF ADMISSION: 02/16/2017 DATE OF DISCHARGE: 02/21/2017 ATTENDING PHYSICIAN: Bj Dee M.D. CONSULTATION: 1. Miguel Hernandez M.D. 2. Jose Carter M.D. 3. Bret Galo M.D. 4. Agnela Sampson M.D. 5. Dinesh Rodríguez M.D. BRIEF HOSPITAL COURSE: The patient is a 56-year-old delightful female with past medical history significant for hypertension, DVT of bilateral lower extremity on Eliquis, chronic pain syndrome, history of bilateral lower extremity and morbid obesity presented to the hospital after she was complaining of chest pain from nursing facility. Chest pain was mostly left-sided and radiates to the back. There was no associated nausea, vomiting, or shortness of breath. She was then taken to [facility] ED where on evaluation chest x-ray done showed no acute cardiopulmonary disease. EKG was in normal sinus rhythm. Troponin was elevated to 0.17. She was admitted to telemetry for possible acute coronary syndrome and was resumed on aspirin and Eliquis. Cardiac enzymes were monitored. The electrocardiogram showed no significant ST to T-wave abnormalities. Her pain seemed to be reproducible on palpation of the chest wall. Her cardiac enzymes were negative and there was no electrocardiographic abnormalities noted. The patient had leukocytosis. She was pancultured and was started on Levaquin. She had a prior DVT and was on Eliquis at home. There was no progression of DVT. She has had factor 5 deficiency. Anemia was secondary to vaginal bleed secondary to uterine fibroid. She had stasis dermatitis of the lower extremity; however, there was no cellulitis on examination. The patient complained of bloody stool and had dark blood clots in the urine. Dr. Galo was consulted. Stool OB was negative. She was given bowel regimen and proton pump inhibitors. Leukocytosis was suspected to be reactive. She was monitored off antibiotic treatment. Urine culture showed growth of Proteus ESBL. The patient was discharged back to SNF to continue antibiotic. FINAL DIAGNOSES: 1. Costochondritis. 2. Morbid obesity. 3. Gout. 4. Factor V mutation. 5. Psychosis. 6. History of deep venous thrombosis currently on Eliquis with no evidence of progression of deep venous thrombosis. 7. Anemia secondary to iron deficiency. 8. Anemia secondary to history of vaginal bleed due to uterine fibroids. 9. Hypoalbuminemia. 10. Proteus bacteriuria/urinary tract infection, profile resembling ESBL. 11. Venous stasis dermatitis. 12. Possible gastrointestinal bleed. DISPOSITION: The patient was discharged back to [facility]. DISCHARGE MEDICATIONS: Refer to medication list. Continue Invanz for seven more days. Miguel Hernandez M.D. I have been assigned to dictate discharge summary on this account and I was not involved in the patient's management. Tabby Munroe N.P. DR: Sunny JOB#: [id number] CC: CARMELO
== END 2017-02-21 19:11 | DRG 206 ==
LOC: EDBD 14:03 → EDUNIT# 14:03 → EMR 14:50 → 2E 16:26 → EDBEDREQ 16:53
DX: M94.0 Chondrocostal junction syndrome [Tietze] (principal); D68.51 Activated protein C resistance; Z68.43 Body mass index [BMI] 50.0-59.9, adult; E88.09 Other disorders of plasma-protein metabolism, not elsewhere classified; K92.2 Gastrointestinal hemorrhage, unspecified; N39.0 Urinary tract infection, site not specified; E66.01 Morbid (severe) obesity due to excess calories; I10 Essential (primary) hypertension; G89.4 Chronic pain syndrome; M10.9 Gout, unspecified; D50.9 Iron deficiency anemia, unspecified; B96.4 Proteus (mirabilis) (morganii) as the cause of diseases classified elsewhere; Z16.12 Extended spectrum beta lactamase (ESBL) resistance; I87.2 Venous insufficiency (chronic) (peripheral); F29 Unspecified psychosis not due to a substance or known physiological condition; D25.9 Leiomyoma of uterus, unspecified; D72.829 Elevated white blood cell count, unspecified; D50.0 Iron deficiency anemia secondary to blood loss (chronic); Z88.2 Allergy status to sulfonamides; Z86.14 Personal history of Methicillin resistant Staphylococcus aureus infection; Z79.01 Long term (current) use of anticoagulants; Z86.718 Personal history of other venous thrombosis and embolism
CPT/HCPCS: 36415; 71010; 80048; 80053; 81001; 82270; 82378; 82550; 82553; 82607; 82728; 82746; 83540; 83550; 83735; 83880; 84100; 84439; 84443; 84484; 85025; 85044; 85610; 85651; 86140; 87081; 87086; 87181; 93005; 93970; 99285; J2405; J8499

== ENCOUNTER 2017-04-27 16:04 | Outpatient (CLI) | payer MEDICARE, OTHER ==
[~2017-04-27 16:04] MED LIST changes: +ELIQUIS5 MG PO; +FUROSEMIDE40 MG ORAL; +INVANZ1 G1 IM
[2017-04-27 17:16] LABS: BASOPHILS % (AUTO) 1.4 % (0.0-2.0); LYMPHOCYTES % (AUTO) 17.7 % (20.0-45.0); MEAN CORPUSCULAR HGB CONC 28.8 G/DL (32.0-36.0); MEAN CORPUSCULAR VOLUME 83 FL (80-99); MEAN PLATELET VOLUME 6.1 FL (6.5-10.1); MONOCYTES % (AUTO) 6.3 % (1.0-10.0); NEUTROPHILS % (AUTO) 73.6 % (45.0-75.0); PLATELET COUNT 335 K/UL (150-450); RED BLOOD COUNT 4.79 M/UL (4.20-5.40); RED CELL DISTRIBUTION WIDTH 14.4 % (11.6-14.8); WHITE BLOOD COUNT 12.4 K/UL (4.8-10.8)
[2017-04-27 17:44] LABS: ALANINE AMINOTRANSFERASE 18 U/L (12-78); ALBUMIN/GLOBULIN RATIO 0.6 (1.0-2.7); ANION GAP 8 mmol/L (5-15); ASPARTATE AMINO TRANSFERASE 20 U/L (15-37); CALCIUM 9.4 MG/DL (8.5-10.1); CARBON DIOXIDE 30 MMOL/L (21-32); CHLORIDE 101 MMOL/L (98-107); CREATININE 0.9 MG/DL (0.55-1.30); GLOMERULAR FILTRATION RATE > 60 mL/min (>60); POTASSIUM 3.5 MMOL/L (3.5-5.1); SODIUM 139 MMOL/L (136-145); THYROID STIMULATING HORMONE 1.034 uiU/mL (0.358-3.740); TOTAL PROTEIN 9.1 G/DL (6.4-8.2)
[2017-04-27 18:23] LABS: APPEARANCE,URINE SLIGHTLY CLOUDY; KETONES,URINE 1+ (NEGATIVE); LEUKOCYTE ESTERASE ,URINE 1+ (NEGATIVE); NITRITE,URINE NEGATIVE (NEGATIVE); PH,URINE 5 (4.5-8.0); PROTEIN,URINE 1+ (NEGATIVE); UROBILINOGEN,URINE 1 MG/DL (0.0-1.0)
[2017-04-27 18:43] LABS: RBC,URINE 0-2 /HPF (0 - 2)
[2017-04-27 18:44] LABS: BACTERIA,URINE FEW /HPF; SQUAMOUS EPITHELIAL CELL,UR MODERATE /LPF (NONE/OCC); WBC,URINE 0-2 /HPF (0 - 2)
== END 2017-04-27 18:04 | disposition home or self-care (01) ==
LOC: LAB 16:04
DX: E66.01 Morbid (severe) obesity due to excess calories (principal); I10 Essential (primary) hypertension
CPT/HCPCS: 36415; 80053; 81001; 84443; 85025

== ENCOUNTER 2017-05-22 16:09 | Inpatient (IN) | payer MEDICARE, OTHER ==
[~2017-05-22] VITALS: Ht 185.4 cm; Wt 206.4 kg
[2017-05-22] MEDS ORDERED: HYDROCHLOROTHIA25 MG ORAL (16:23)
--- NOTE | 2017-05-22 18:02 | Emergency Room Report ---
History of Present Illness General Chief Complaint: Female Urogenital Problems Source: Patient Present Illness HPI 48-year-old female presents ED complaining of pain to the bilateral legs x3 days. Notes history of chronic cellulitis and states her cellulitis is getting worse. Was referred by PMD Dr. Campbell for admission. This pain as throbbing, 7/10 , nonradiating. Denies fevers chills. Patient also states she is having vaginal bleeding starting yesterday. Has history of DVT and is currently on Eliquis. No other aggravating relieving factors. Denies any other associated Allergies: Coded Allergies: SULFA (SULFONAMIDE ANTIBIOTICS) (Unverified Allergy, Unknown, 05/02/15) allergy history per Dr. Campbell Patient History Past Medical History: HTN, asthma, GI bleed, other - DVT Past Surgical History: none Pertinent Family History: none Social History: Denies: smoking, alcohol use, drug use Last Menstrual Period: 04/13/17 Now: No Immunizations: UTD Reviewed Nursing Documentation: PMH: Agreed, PSxH: Agreed Nursing Documentation-PMH Hx Cardiac Problems: Yes - bilateral leg blood clots x 2 yr Hx Hypertension: Yes Hx Asthma: Yes Hx Cancer: No Hx Gastrointestinal Problems: Yes - GI bleeding Hx Neurological Problems: No Hx Cerebrovascular Accident: No - CELLULITIS LOWER ABD AND BI-LAT LEGS Review of Systems All Other Systems: negative except mentioned in HPI Physical Exam Vital Signs Date Time Temp Pulse Resp B/P (MAP) Pulse Ox O2 Delivery O2 Flow Rate FiO2 05/22/17 16:20 97.3 92 16 119/74 97 Room Air Sp02 EP Interpretation: reviewed, normal General Appearance: no apparent distress, alert, GCS 15, non-toxic, obese Head: normocephalic ENT: normal ENT inspection Neck: normal inspection Respiratory: chest non-tender, lungs clear, normal breath sounds, speaking full sentences Cardiovascular #1: regular rate, rhythm, no edema Gastrointestinal: normal inspection Rectal: deferred Genitourinary: no CVA tenderness Musculoskeletal: swelling - bilateral LE swelling Neurologic: alert, oriented x3, responsive, motor strength/tone normal, sensory intact, speech normal Psychiatric: normal inspection Skin: other - induration/swelling bilateral LEs Lymphatic: normal inspection Medical Decision Making Diagnostic Impression: Primary Impression: Bilateral cellulitis of lower leg Additional Impression: Vaginal bleeding ER Course Hospital Course 56-year-old female presents to ED with redness, swelling to bilateral LEs, c/o vaginal bleeding - on eliquis Differential diagnoses include: Cellulitis, abscess, rash. Clinical course Patient placed on stretcher. After initial history and physical I ordered labs , blood Cx, UA, IVFs, labs reviewed - no leukocytosis, Hb/Hct stable, no electrolyte abnormalities. coags ok antibiotics given. Case discussed with PMD Dr. Campbell - agrees to admission Dr Smith asked that we admit to Dr Jackson Case discussed with Dr Jackson and he agreed to accept the patient to his service for further care and support Diagnosis - bilateral LE cellulitis, vaginal bleeding Patient admitted to floor in serious condition Labs Test 05/22/17 18:15 05/22/17 19:45 White Blood Count 10.3 K/UL (4.8-10.8) Red Blood Count 4.17 M/UL (4.20-5.40) Hemoglobin 10.3 G/DL (12.0-16.0) Hematocrit 34.6 % (37.0-47.0) Mean Corpuscular Volume 83 FL (80-99) Mean Corpuscular Hemoglobin 24.7 PG (27.0-31.0) Mean Corpuscular Hemoglobin Concent 29.8 G/DL (32.0-36.0) Red Cell Distribution Width 14.5 % (11.6-14.8) Platelet Count 264 K/UL (150-450) Mean Platelet Volume 5.9 FL (6.5-10.1) Neutrophils (%) (Auto) 78.3 % (45.0-75.0) Lymphocytes (%) (Auto) 10.9 % (20.0-45.0) Monocytes (%) (Auto) 6.7 % (1.0-10.0) Eosinophils (%) (Auto) 2.1 % (0.0-3.0) Basophils (%) (Auto) 2.1 % (0.0-2.0) Prothrombin Time 10.6 SEC (9.30-11.50) Prothromb Time International Ratio 1.0 (0.9-1.1) Activated Partial Thromboplast Time 27 SEC (23-33) Sodium Level 137 MMOL/L (136-145) Potassium Level 3.4 MMOL/L (3.5-5.1) Chloride Level 100 MMOL/L (98-107) Carbon Dioxide Level 28 MMOL/L (21-32) Anion Gap 9 mmol/L (5-15) Blood Urea Nitrogen 9 mg/dL (7-18) Creatinine 0.7 MG/DL (0.55-1.30) Estimat Glomerular Filtration Rate > 60 mL/min (>60) Glucose Level 95 MG/DL (74-106) Lactic Acid Level 1.10 mmol/L (0.66-2.22) Calcium Level 8.9 MG/DL (8.5-10.1) Total Bilirubin 0.2 MG/DL (0.2-1.0) Aspartate Amino Transf (AST/SGOT) 19 U/L (15-37) Alanine Aminotransferase (ALT/SGPT) 15 U/L (12-78) Alkaline Phosphatase 65 U/L (46-116) Total Protein 7.9 G/DL (6.4-8.2) Albumin 2.9 G/DL (3.4-5.0) Globulin 5.0 g/dL Albumin/Globulin Ratio 0.6 (1.0-2.7) Pro-B-Type Natriuretic Peptide 24 pg/mL (0-125) Last Vital Signs Date Time Temp Pulse Resp B/P (MAP) Pulse Ox O2 Delivery O2 Flow Rate FiO2 05/22/17 16:20 97.3 92 16 119/74 97 Room Air Status: improved Disposition: ADMITTED INPATIENT Condition: Serious Referrals: DENISE CAMPBELL (PCP) PAUL PEÑA M.D. May 22, 2017 18:02
[2017-05-22 18:26] LABS: BASOPHILS % (AUTO) 2.1 % (0.0-2.0); EOSINOPHILS % (AUTO) 2.1 % (0.0-3.0); HEMATOCRIT 34.6 % (37.0-47.0); HEMOGLOBIN 10.3 G/DL (12.0-16.0); LYMPHOCYTES % (AUTO) 10.9 % (20.0-45.0); MEAN CORPUSCULAR VOLUME 83 FL (80-99); MONOCYTES % (AUTO) 6.7 % (1.0-10.0); NEUTROPHILS % (AUTO) 78.3 % (45.0-75.0); PLATELET COUNT 264 K/UL (150-450); RED BLOOD COUNT 4.17 M/UL (4.20-5.40); RED CELL DISTRIBUTION WIDTH 14.5 % (11.6-14.8); WHITE BLOOD COUNT 10.3 K/UL (4.8-10.8)
[2017-05-22 18:38] LABS: ANION GAP 9 mmol/L (5-15); BLOOD UREA NITROGEN 9 mg/dL (7-18); CALCIUM 8.9 MG/DL (8.5-10.1); CARBON DIOXIDE 28 MMOL/L (21-32); CHLORIDE 100 MMOL/L (98-107); CREATININE 0.7 MG/DL (0.55-1.30); POTASSIUM 3.4 MMOL/L (3.5-5.1); SODIUM 137 MMOL/L (136-145)
[2017-05-22] MEDS ORDERED: Cefepime HCl 2 GM in D5W 55 ML IVPB ONE (18:45)
[2017-05-22] MEDS ORDERED: Vancomycin 1.5gm/D5W 250ml 250 ML IVPB ONE (18:45)
[2017-05-22 18:53] LABS: ALANINE AMINOTRANSFERASE 15 U/L (12-78); ALBUMIN 2.9 G/DL (3.4-5.0); ALBUMIN/GLOBULIN RATIO 0.6 (1.0-2.7); ALKALINE PHOSPHATASE 65 U/L (46-116); ASPARTATE AMINO TRANSFERASE 19 U/L (15-37); BILIRUBIN,TOTAL 0.2 MG/DL (0.2-1.0)
[2017-05-22] MEDS ORDERED: Morphine Sulfate 4mg/ml Inj IVP PRN (19:15)
[2017-05-22] MEDS ORDERED: Morphine Sulfate 2mg/ml Inj IVP PRN (19:15)
[2017-05-22] MEDS ORDERED: Acetaminophen 650 MG SUPP RECTAL PRN (19:15)
[2017-05-22 19:20] VITALS: BP 119/74
[2017-05-22] MEDS ORDERED: Cefepime 2gm ONE (19:47)
[2017-05-22] MEDS: Eliquis 2.5mg tablet ORAL SCH (19:51)
[2017-05-22] MEDS ORDERED: Miralax 17gm pkt ORAL PRN (21:00)
[2017-05-22] MEDS ORDERED: Heparin 5000 units/ml inj SUBQ SCH (21:00)
[2017-05-22] MEDS: Docusate 100mg cap ORAL SCH (21:05)
[2017-05-22 22:25] VITALS: BP 133/85
[2017-05-23 00:32] VITALS: BP 117/81
[2017-05-23] MEDS: NS w/KCl 20mEq 1,000 ML IV SCH ×2 (01:02→10:50)
[2017-05-23] MEDS ORDERED: Lidocaine 1% Plain 30 ml INJ PRN (07:00)
[2017-05-23] MEDS ORDERED: Heparin 2000 units/Ns 1000ml INJ PRN (07:00)
--- NOTE | 2017-05-23 08:42 | History and Physical ---
History of Present Illness General Date patient seen: May 23, 2017 Time patient seen: 08:42 Reason for Hospitalization: BLE swelling/pain/redness, vaginal bleeding Present Illness HPI 56y/o female with pmh of morbid obesity, HTN, DVT (on AC) who presents with B/l leg swelling/pain/redness. Pt notes symptoms for the past few days. She has a history of cellulitis of leg previously treated with antibiotics. She also has a history of DVT and is currently on Eliquis. States she was switched from Xarelto to Eliquis recently given concern for bleeding. Pt has been on Eliquis for abt 6 months. She c/o intermittent vaginal bleeding, most recently starting yesterday w/ spotting and passed a clot yesterday. Pt has seen automobile lights assembler Dr. Zuniga before for this and has been worked up including pap smear a few months ago, unclear if had EMBx. Pt c/o subjective fevers, weakness. Denies chest pain, SOB, n/v/d/c, abd pain. Allergies: Coded Allergies: SULFA (SULFONAMIDE ANTIBIOTICS) (Unverified Allergy, Unknown, 05/02/15) allergy history per Dr. Jones Medication History Scheduled Apixaban (Eliquis), 5 MG PO BID, (Reported) Benazepril Hcl* (Benazepril Hcl*), 20 MG ORAL DAILY, (Reported) Docusate Sodium* (Colace*), 100 MG ORAL TWICE A DAY, (Reported) Ertapenem (Invanz), 1 GM IM DAILY Febuxostat (Uloric), 40 MG ORAL DAILY, (Reported) Furosemide* (Lasix*), 40 MG ORAL DAILY Hydrochlorothiazide* (Hydrochlorothiazide*), 25 MG ORAL DAILY, (Reported) Scheduled PRN Acetaminophen With Codeine (T#3) (Tylenol With Codeine #3 Tablet), 1 TAB ORAL Q4H PRN for For Pain, (Reported) Patient History History Provided By: Patient, Medical Record, PMD Healthcare decision maker Resuscitation status Full Code Advanced Directive on File Past Medical/Surgical History Past Medical/Surgical History: (1) Morbid obesity (2) HTN (hypertension) (3) Deep vein thrombosis (DVT) of left lower extremity (4) Bilateral lower leg cellulitis (5) Post-menopausal bleeding (6) Gout (7) DVT, bilateral lower limbs Family History Family History: Patient reports no known family medical history. Social History Social History: (1) lives on own at home Review of Systems Constitutional: Reports: fever, weakness Eye: Reports: no symptoms ENT: Reports: no symptoms Respiratory: Reports: no symptoms Cardiovascular: Reports: no symptoms Gastrointestinal: Reports: no symptoms Genitourinary: Reports: no symptoms Musculoskeletal: Reports: joint pain, joint swelling, muscle pain Skin: Reports: no symptoms Psychiatric: Reports: no symptoms Neurological: Reports: no symptoms Endocrine: Reports: no symptoms Hematologic/Lymphatic: Reports: no symptoms Physical Exam Physical Exam Narrative General: alert, cooperative, no distress, appears stated age, morbidly obese Head: normocephalic, without obvious abnormality, atraumatic Eyes: conjunctivae/corneas clear. PERRL, EOM's intact Throat: lips, mucosa, and tongue normal. MMM Neck: supple, symmetrical, trachea midline, and no JVD Lungs: clear to auscultation bilaterally Heart: regular rate and rhythm, S1, S2 normal, no murmur, click, rub or gallop Abdomen: soft, non-tender, non-distended, bowel sounds normal Extremities: extremities normal, atraumatic, no cyanosis, 2+pitting edema of BLE , L foot w/ wound, no drainage noted. +Erythema/TTP/warmth/induration of R>L Pulses: 2+ and symmetric Skin: skin color, texture, turgor normal; no rashes or lesions Neurologic: grossly normal, no focal deficits Last 24 Hour Vital Signs Date Time Temp Pulse Resp B/P (MAP) Pulse Ox O2 Delivery O2 Flow Rate FiO2 05/23/17 00:35 96 Room Air 05/23/17 00:32 97.7 94 21 117/81 96 Room Air 05/22/17 23:40 97.5 98 16 133/85 98 Room Air 05/22/17 22:25 97.5 98 16 133/85 98 Room Air 05/22/17 19:20 97.3 92 16 119/74 97 Room Air 05/22/17 16:20 97.3 92 16 119/74 97 Room Air Intake and Output 05/22/17 05/23/17 19:00 07:00 Intake Total 375 ml Balance 375 ml Intake Oral 0 ml IV Total 375 ml # Voids 1 # Bowel Movements 1 Laboratory Tests Test 05/22/17 18:15 05/22/17 19:45 White Blood Count 10.3 K/UL (4.8-10.8) Red Blood Count 4.17 M/UL (4.20-5.40) L Hemoglobin 10.3 G/DL (12.0-16.0) L Hematocrit 34.6 % (37.0-47.0) L Mean Corpuscular Volume 83 FL (80-99) Mean Corpuscular Hemoglobin 24.7 PG (27.0-31.0) L Mean Corpuscular Hemoglobin Concent 29.8 G/DL (32.0-36.0) L Red Cell Distribution Width 14.5 % (11.6-14.8) Platelet Count 264 K/UL (150-450) Mean Platelet Volume 5.9 FL (6.5-10.1) L Neutrophils (%) (Auto) 78.3 % (45.0-75.0) H Lymphocytes (%) (Auto) 10.9 % (20.0-45.0) L Monocytes (%) (Auto) 6.7 % (1.0-10.0) Eosinophils (%) (Auto) 2.1 % (0.0-3.0) Basophils (%) (Auto) 2.1 % (0.0-2.0) H Prothrombin Time 10.6 SEC (9.30-11.50) Prothromb Time International Ratio 1.0 (0.9-1.1) Activated Partial Thromboplast Time 27 SEC (23-33) Sodium Level 137 MMOL/L (136-145) Potassium Level 3.4 MMOL/L (3.5-5.1) L Chloride Level 100 MMOL/L (98-107) Carbon Dioxide Level 28 MMOL/L (21-32) Anion Gap 9 mmol/L (5-15) Blood Urea Nitrogen 9 mg/dL (7-18) Creatinine 0.7 MG/DL (0.55-1.30) Estimat Glomerular Filtration Rate > 60 mL/min (>60) Glucose Level 95 MG/DL (74-106) Lactic Acid Level 1.10 mmol/L (0.66-2.22) Calcium Level 8.9 MG/DL (8.5-10.1) Total Bilirubin 0.2 MG/DL (0.2-1.0) Aspartate Amino Transf (AST/SGOT) 19 U/L (15-37) Alanine Aminotransferase (ALT/SGPT) 15 U/L (12-78) Alkaline Phosphatase 65 U/L (46-116) Total Protein 7.9 G/DL (6.4-8.2) Albumin 2.9 G/DL (3.4-5.0) L Globulin 5.0 g/dL Albumin/Globulin Ratio 0.6 (1.0-2.7) L Pro-B-Type Natriuretic Peptide 24 pg/mL (0-125) Height (Feet): 6 Height (Inches): 1.00 Weight (Pounds): 455 Medications Current Medications Medications (Trade) Dose Ordered Sig/Key Route PRN Reason Start Time Stop Time Status Last Admin Dose Admin Acetaminophen (Tylenol) 650 mg Q4H PRN ORAL Mild Pain (Pain Scale 1-3) 05/22/17 19:15 06/21/17 19:14 Acetaminophen (Tylenol) 650 mg Q4H PRN ORAL T>100.5 05/22/17 19:15 06/21/17 19:14 Acetaminophen (Tylenol) 650 mg Q4H PRN RECTAL Mild Pain (Pain Scale 1-3) 05/22/17 19:15 06/21/17 19:14 Apixaban (Eliquis) 5 mg BID ORAL 05/22/17 20:00 06/21/17 19:59 05/22/17 19:51 Bisacodyl (Dulcolax) 10 mg HSPRN PRN RECTAL Constipation 05/22/17 19:30 06/21/17 19:14 Cefepime HCl 2 gm/ Dextrose 55 ml @ 110 mls/hr EVERY 12 HOURS IVPB 05/23/17 09:00 05/30/17 08:59 Chlorhexidine Gluconate (Priti-Hex 2%) 1 applic DAILY@2000 TOPIC 05/23/17 20:00 06/22/17 19:59 Dextrose (Dextrose 50%) STAT PRN IV Hypoglycemia 05/22/17 19:15 06/21/17 19:14 Docusate Sodium (Colace) 100 mg EVERY 12 HOURS ORAL 05/22/17 21:00 06/21/17 20:59 05/22/17 21:05 Heparin Sodium/ Sodium Chloride (Heparin 2000 units/Ns 1000ml premix) 2,000 unit ONCE PRN INJ PICC LINE PLACEMENT 05/23/17 07:00 05/24/17 23:59 Hydromorphone HCl (Dilaudid) 0.5 mg Q4H PRN IVP Severe Pain (Pain Scale 7-10) 05/23/17 07:00 05/30/17 06:59 Lidocaine HCl (Xylocaine 1% 30ml) 30 ml ONCE PRN INJ PICC LINE PLACEMENT 05/23/17 07:00 05/24/17 23:59 Morphine Sulfate (Morphine Sulfate) 2 mg Q4H PRN IVP Moderate Pain (Pain Scale 4-6) 05/22/17 19:15 05/29/17 19:14 Ondansetron HCl (Zofran) 4 mg Q6H PRN IVP Nausea & Vomiting 05/22/17 19:15 06/21/17 19:14 Polyethylene Glycol (Miralax) 17 gm HSPRN PRN ORAL Constipation 05/22/17 21:00 06/21/17 20:59 Sodium Chloride 1,000 ml @ 75 mls/hr [id number] IV 05/22/17 21:30 06/21/17 21:29 05/23/17 01:02 Vancomycin HCl (Vanco rx to dose) 1 ea DAILY PRN MISC Per rx protocol 05/22/17 19:15 06/21/17 19:14 Vancomycin HCl/ Dextrose 250 ml @ 125 mls/hr Q12HR@0800,2000 IVPB 05/23/17 08:00 05/28/17 07:59 Assessment/Plan Problem List: (1) Bilateral lower leg cellulitis ICD Codes: L03.116 - Cellulitis of left lower limb; L03.115 - Cellulitis of right lower limb SNOMED: 173024445 (2) Acute DVT of LLE (3) Vaginal bleeding ICD Codes: N93.9 - Abnormal uterine and vaginal bleeding, unspecified SNOMED: 733870683, 130996359 (4) Acute blood loss anemia ICD Codes: D62 - Acute posthemorrhagic anemia SNOMED: 820995993 (5) Morbid obesity ICD Codes: E66.01 - Morbid (severe) obesity due to excess calories SNOMED: 165797151 (6) HTN (hypertension) ICD Codes: I10 - Essential (primary) hypertension SNOMED: 21897752 (7) Hypokalemia ICD Codes: E87.6 - Hypokalemia SNOMED: 99970679 Status: stable Assessment/Plan Admit inpt ID consulted Cont empiric vanco and cefepime for leg cellulitis (05/22-) Wound care General surgery consulted given L leg wound U/S BLE venous duplex reviewed. Hematology consulted given acute DVT despite being on Eliquis. Pt states has been on it for abt 6mo Check U/S pelvis given vaginal bleeding Consider automobile lights assembler consult inpatient vs outpatient Replete lytes Cont home meds PT/OT eval Pain control, supportive care, bowel regimen DVT Prophylaxis: SCD, Eliquis Code Status: Full Hospital Classification Declaration: Based on this initial evaluation, and depending on the patient's clinical course, I anticipate that this patient will require hospitalization for 2-3 days for cellulitis, vaginal bleeding, and close respiratory/hemodynamic monitoring. Disposition: Once the patient is stable to leave the hospital, I anticipate the patient will likely be discharged to the following environment: home with HH vs SNF Discussed with patient/family, nursing staff, SW/CM, ID, hematology regarding clinical status, treatment course, and disposition planning. D/w ID re abx. D/w hematology re AC Time of note may not reflect time of encounter. Sofia Ambrose M.D. May 23, 2017 08:42
[2017-05-23 08:59] VITALS: BP 114/71
[2017-05-23] MEDS ORDERED: Cefepime HCl 2 GM in D5W 55 ML IVPB SCH (09:00)
[2017-05-23] MEDS: Vancomycin 1.5 GM/D5W 250ML IVPB SCH ×2 (09:04→22:01)
[2017-05-23] MEDS: Docusate 100mg cap ORAL SCH ×2 (09:04→21:00)
[2017-05-23] MEDS: Eliquis 2.5mg tablet ORAL SCH ×2 (09:06→18:55)
[2017-05-23] MEDS: Cefepime HCl 2 GM in D5W 55 ML IVPB SCH ×2 (12:56→21:06)
[2017-05-23] MEDS: Hydromorphone 0.5mg/0.5ml inj IVP PRN ×2 (16:34→21:16)
--- NOTE | 2017-05-23 17:22 | Consultation ---
History of Present Illness General Date patient seen: May 23, 2017 Chief Complaint: Female Urogenital Problems Referring physician: Primary Reason for Consultation: Left lower extremity cellulitis and wound Present Illness HPI 56 year old female with multiple medical comorbidities as noted below and in H& P currently admitted for lower extremity cellulitis and vaginal bleeding. Patient has history of known lower extremity DVT and has been on oral anticoagulant for some time now. Has history of intermittent lower extremity wounds which are slow to heal but do heal. Has history of lower extremity cellulitis treated with Abx. Currently has noted left lower extremity edema, erythema, pain, and wound for 3 weeks. states that it first began as small area of lateral left distal leg but has since become larger. no drainage. has noted left lower extremity larger than right. no n/v/f/c. has vaginal bleeding which is also being worked up. surgery called to evaluate left lower extremity cellulitis wound. Allergies: Coded Allergies: SULFA (SULFONAMIDE ANTIBIOTICS) (Unverified Allergy, Unknown, 05/02/15) allergy history per Dr. Jones Medication History Scheduled Apixaban (Eliquis), 5 MG PO BID, (Reported) Benazepril Hcl* (Benazepril Hcl*), 20 MG ORAL DAILY, (Reported) Docusate Sodium* (Colace*), 100 MG ORAL TWICE A DAY, (Reported) Ertapenem (Invanz), 1 GM IM DAILY Febuxostat (Uloric), 40 MG ORAL DAILY, (Reported) Furosemide* (Lasix*), 40 MG ORAL DAILY Hydrochlorothiazide* (Hydrochlorothiazide*), 25 MG ORAL DAILY, (Reported) Scheduled PRN Acetaminophen With Codeine (T#3) (Tylenol With Codeine #3 Tablet), 1 TAB ORAL Q4H PRN for For Pain, (Reported) Patient History History Provided By: Patient, Medical Record, PMD Healthcare decision maker Resuscitation status Full Code Advanced Directive on File Past Medical/Surgical History Past Medical/Surgical History: (1) Clostridium difficile colitis (2) Cellulitis, leg (3) Leukocytosis (4) Left leg cellulitis (5) Hypokalemia (6) Atypical psychosis (7) Thrush (8) Anemia (9) Back pain (10) Cough (11) Diarrhea (12) Flank pain (13) Leukocytosis (14) Hypoalbuminemia (15) Sepsis (16) Rectal bleeding (17) Hypertension (18) Obesity (19) Chronic pain (20) Muscle ache (21) Cellulitis, leg (22) ACS (acute coronary syndrome) (23) Factor V Leiden (24) Shoulder pain, right (25) Cellulitis of right leg (26) Cellulitis of right leg (27) Chronic wound of extremity (28) Flank pain, acute (29) Injury of lower extremity (30) Left leg cellulitis (31) Factor 5 Leiden mutation, heterozygous (32) Poor intravenous access (33) DVT, recurrent, lower extremity, acute and chronic (34) Cellulitis (35) abdominal wall swelling (36) leg pain (37) probable abscess (38) Bilateral cellulitis of lower leg (39) Gout (40) Morbid obesity (41) Post-menopausal bleeding (42) HTN (hypertension) (43) DVT, bilateral lower limbs (44) Bilateral lower leg cellulitis (45) Deep vein thrombosis (DVT) of left lower extremity (46) lives on own at home (47) Acute blood loss anemia (48) Morbid obesity (49) Vaginal bleeding (50) Acute DVT of LLE (51) Hypokalemia Review of Systems Constitutional: Denies: no symptoms, see HPI, chills, sweats, fever, malaise, weakness, other Eye: Denies: no symptoms, see HPI, eye pain, blurred vision, tearing, double vision, nose pain, nose congestion, acuity changes, discharge, other ENT: Denies: no symptoms, see HPI, ear pain, ear discharge, nose pain, nose congestion, throat pain, throat swelling, mouth pain, hearing loss, nasal discharge, other Respiratory: Denies: no symptoms, see HPI, cough, orthopnea, shortness of breath, stridor, wheezing, ARTEAGA, sputum, other Cardiovascular: Denies: no symptoms, see HPI, chest pain, edema, palpitations, syncope, PND, other Gastrointestinal: Denies: no symptoms, see HPI, abdominal pain, constipation, diarrhea, nausea, vomiting, melena, hematemesis, other Genitourinary: Denies: no symptoms, see HPI, discharge, dysuria, frequency, hematuria, pain, retention, incontinence, urgency, vag bleed/dc, other Musculoskeletal: Denies: no symptoms, see HPI, back pain, gout, joint pain, joint swelling, muscle pain, muscle stiffness, other Skin: Denies: no symptoms, see HPI, rash, change in color, change in hair/nails , dryness, lesions, other Psychiatric: Denies: no symptoms, see HPI, prior hx, anxiety, depressed feelings, emotional problems, SI, HI, hallucinations, other Neurological: Denies: no symptoms, see HPI, headache, numbness, paresthesia, seizure, tingling, tremors, focal weakness, syncope, dizziness, other Endocrine: Denies: no symptoms, see HPI, excessive sweating, flushing, intolerance to temperature, increased thirst, increased urine, unexplained weight loss, other Hematologic/Lymphatic: Denies: no symptoms, see HPI, anemia, blood clots, easy bleeding, easy bruising, swollen glands, diathesis, other All Other Systems: negative except mentioned in HPI Physical Exam General Appearance: no apparent distress, alert Lines, tubes and drains: peripheral HEENT: atraumatic, mucous membranes moist, PERRL Neck: supple, normal inspection Respiratory/Chest: lungs clear, normal breath sounds, no respiratory distress, no accessory muscle use Cardiovascular/Chest: normal rate, regular rhythm Abdomen: normal bowel sounds, non tender, soft Extremities: moderate edema, other - left lower extremity larger than right with edema. patient overall is very large. edema in left leg from toes to thigh. lateral posterior left distal leg with large area of superficial skin breakdown and ulceration. likely venous stasis ulcer which is worsened by cellulitis and edema. no tendneress. no drainage. no signs of infection. Neurologic: alert, 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 Last 24 Hour Vital Signs Date Time Temp Pulse Resp B/P (MAP) Pulse Ox O2 Delivery O2 Flow Rate FiO2 05/23/17 08:59 97.9 88 21 114/71 99 Room Air 05/23/17 00:35 96 Room Air 05/23/17 00:32 97.7 94 21 117/81 96 Room Air 05/22/17 23:40 97.5 98 16 133/85 98 Room Air 05/22/17 22:25 97.5 98 16 133/85 98 Room Air 05/22/17 19:20 97.3 92 16 119/74 97 Room Air Intake and Output 05/22/17 05/23/17 19:00 07:00 Intake Total 375 ml Balance 375 ml Intake Oral 0 ml IV Total 375 ml # Voids 1 # Bowel Movements 1 Laboratory Tests Test 05/22/17 18:15 05/22/17 19:45 White Blood Count 10.3 K/UL (4.8-10.8) Red Blood Count 4.17 M/UL (4.20-5.40) L Hemoglobin 10.3 G/DL (12.0-16.0) L Hematocrit 34.6 % (37.0-47.0) L Mean Corpuscular Volume 83 FL (80-99) Mean Corpuscular Hemoglobin 24.7 PG (27.0-31.0) L Mean Corpuscular Hemoglobin Concent 29.8 G/DL (32.0-36.0) L Red Cell Distribution Width 14.5 % (11.6-14.8) Platelet Count 264 K/UL (150-450) Mean Platelet Volume 5.9 FL (6.5-10.1) L Neutrophils (%) (Auto) 78.3 % (45.0-75.0) H Lymphocytes (%) (Auto) 10.9 % (20.0-45.0) L Monocytes (%) (Auto) 6.7 % (1.0-10.0) Eosinophils (%) (Auto) 2.1 % (0.0-3.0) Basophils (%) (Auto) 2.1 % (0.0-2.0) H Prothrombin Time 10.6 SEC (9.30-11.50) Prothromb Time International Ratio 1.0 (0.9-1.1) Activated Partial Thromboplast Time 27 SEC (23-33) Sodium Level 137 MMOL/L (136-145) Potassium Level 3.4 MMOL/L (3.5-5.1) L Chloride Level 100 MMOL/L (98-107) Carbon Dioxide Level 28 MMOL/L (21-32) Anion Gap 9 mmol/L (5-15) Blood Urea Nitrogen 9 mg/dL (7-18) Creatinine 0.7 MG/DL (0.55-1.30) Estimat Glomerular Filtration Rate > 60 mL/min (>60) Glucose Level 95 MG/DL (74-106) Lactic Acid Level 1.10 mmol/L (0.66-2.22) Calcium Level 8.9 MG/DL (8.5-10.1) Total Bilirubin 0.2 MG/DL (0.2-1.0) Aspartate Amino Transf (AST/SGOT) 19 U/L (15-37) Alanine Aminotransferase (ALT/SGPT) 15 U/L (12-78) Alkaline Phosphatase 65 U/L (46-116) Total Protein 7.9 G/DL (6.4-8.2) Albumin 2.9 G/DL (3.4-5.0) L Globulin 5.0 g/dL Albumin/Globulin Ratio 0.6 (1.0-2.7) L Pro-B-Type Natriuretic Peptide 24 pg/mL (0-125) Height (Feet): 6 Height (Inches): 1.00 Weight (Pounds): 455 Medications Current Medications Medications (Trade) Dose Ordered Sig/Key Route PRN Reason Start Time Stop Time Status Last Admin Dose Admin Acetaminophen (Tylenol) 650 mg Q4H PRN ORAL Mild Pain (Pain Scale 1-3) 05/22/17 19:15 06/21/17 19:14 Acetaminophen (Tylenol) 650 mg Q4H PRN ORAL T>100.5 05/22/17 19:15 06/21/17 19:14 Acetaminophen (Tylenol) 650 mg Q4H PRN RECTAL Mild Pain (Pain Scale 1-3) 05/22/17 19:15 06/21/17 19:14 Apixaban (Eliquis) 5 mg BID ORAL 05/22/17 20:00 06/21/17 19:59 05/23/17 09:06 Bisacodyl (Dulcolax) 10 mg HSPRN PRN RECTAL Constipation 05/22/17 19:30 06/21/17 19:14 Cefepime HCl 2 gm/ Dextrose 55 ml @ 110 mls/hr EVERY 12 HOURS IVPB 05/23/17 09:00 05/30/17 08:59 05/23/17 12:56 Chlorhexidine Gluconate (Priti-Hex 2%) 1 applic DAILY@2000 TOPIC 05/23/17 20:00 06/22/17 19:59 Dextrose (Dextrose 50%) STAT PRN IV Hypoglycemia 05/22/17 19:15 06/21/17 19:14 Docusate Sodium (Colace) 100 mg EVERY 12 HOURS ORAL 05/22/17 21:00 2/8/18 20:59 05/23/17 09:04 Heparin Sodium/ Sodium Chloride (Heparin 2000 units/Ns 1000ml premix) 2,000 unit ONCE PRN INJ PICC LINE PLACEMENT 05/23/17 07:00 05/24/17 23:59 Hydromorphone HCl (Dilaudid) 0.5 mg Q4H PRN IVP Severe Pain (Pain Scale 7-10) 05/23/17 07:00 05/30/17 06:59 05/23/17 16:34 Lidocaine HCl (Xylocaine 1% 30ml) 30 ml ONCE PRN INJ PICC LINE PLACEMENT 05/23/17 07:00 05/24/17 23:59 Morphine Sulfate (Morphine Sulfate) 2 mg Q4H PRN IVP Moderate Pain (Pain Scale 4-6) 05/22/17 19:15 05/29/17 19:14 Ondansetron HCl (Zofran) 4 mg Q6H PRN IVP Nausea & Vomiting 05/22/17 19:15 06/21/17 19:14 Polyethylene Glycol (Miralax) 17 gm HSPRN PRN ORAL Constipation 05/22/17 21:00 06/21/17 20:59 Vancomycin HCl (Vanco rx to dose) 1 ea DAILY PRN MISC Per rx protocol 05/22/17 19:15 06/21/17 19:14 Vancomycin HCl/ Dextrose 250 ml @ 125 mls/hr Q12HR@0800,2000 IVPB 05/23/17 08:00 05/28/17 07:59 05/23/17 09:04 Assessment/Plan Problem List: (1) Left leg cellulitis Assessment & Plan: 56F with multiple medical problems has left leg cellulitis with wound. there is a large lateral posterior left leg superficial skin breakdown ulcer noted likely from venous stasis, edema and cellulitis. no abscess or area of fluctuance noted. does have DVT in pop vein on left side. currently with local wound care. no acute surgical intervention necessary. no area of abscess or fluctuance needing I&D noted. possible to develop in future with chronic cellulitis. local wound care okay for now. would not recommend debridement of wounds given they are clean and intact. may require debridement at later time. -cont with IV abx -cont with local wound care (soft dressings and skin protectant) -keep bilateral lower extremities elevated when possible. has poor venous flow which is making edema, cellulitis and wounds worse. -continue DVT anticoagulation. thank you for this consultation and for allowing me to participate in [facility]'s care. will follow with recs and monitor wound. ICD Codes: L03.116 - Cellulitis of left leg SNOMED: [id number] Status: stable Chuy Damian May 23, 2017 17:22
--- NOTE | 2017-05-23 18:32 | Diagnostic Imaging Report ---
Indications: Needs IV access Technique: Procedure performed with the patient on her gurney given the patient's large body habitus and weight being over the rating for the angiography table. Procedural timeout performed. Ultrasound confirms patent compressible right brachial vein. Total sterile technique, including sterile probe cover and sterile gel, sterile gloves, hand hygiene, hat, mask,, sterile gown, large sterile drape, and preparation with 2% chlorhexidine utilized. Local anesthesia with 1% lidocaine. Under real-time ultrasound guidance, puncture ] vein using 21-gauge needle, passage 0.018 guidewire, exchange for 5 Polish peel-away sheath. 4 Polish single lumen PICC cut to 15 cm. As there is some difficulty advancing the catheter centrally It was inserted through the peel-away sheath. Peel-away sheath and guidewire removed. Catheter fixed to the skin. Both catheter ports aspirated and flushed. Patient tolerated procedure well, without immediate complication. Follow-up x-ray of the right arm demonstrates the catheter tip to the level of the deltoid tuberosity. Impression: Inability to thread the catheter centrally. This is likely related to venous occlusion, especially given multiple prior PICC lines in the past. Catheter was left short at 15 cm in the right brachial vein. Catheter cleared for immediate use.
[2017-05-23 19:57] LABS: BASOPHILS % (AUTO) 2.3 % (0.0-2.0); EOSINOPHILS % (AUTO) 3.3 % (0.0-3.0); HEMATOCRIT 33.2 % (37.0-47.0); HEMOGLOBIN 9.6 G/DL (12.0-16.0); LYMPHOCYTES % (AUTO) 14.6 % (20.0-45.0); MEAN CORPUSCULAR VOLUME 83 FL (80-99); MONOCYTES % (AUTO) 11.6 % (1.0-10.0); NEUTROPHILS % (AUTO) 68.2 % (45.0-75.0); PLATELET COUNT 242 K/UL (150-450); RED BLOOD COUNT 4.01 M/UL (4.20-5.40); RED CELL DISTRIBUTION WIDTH 14.1 % (11.6-14.8); WHITE BLOOD COUNT 5.8 K/UL (4.8-10.8)
[2017-05-23 20:00] VITALS: BP 109/69
[2017-05-23 20:25] LABS: ALANINE AMINOTRANSFERASE 14 U/L (12-78); ALBUMIN 2.7 G/DL (3.4-5.0); ALBUMIN/GLOBULIN RATIO 0.6 (1.0-2.7); ALKALINE PHOSPHATASE 68 U/L (46-116); ANION GAP 8 mmol/L (5-15); ASPARTATE AMINO TRANSFERASE 17 U/L (15-37); BILIRUBIN,TOTAL 0.2 MG/DL (0.2-1.0); BLOOD UREA NITROGEN 9 mg/dL (7-18); CALCIUM 8.3 MG/DL (8.5-10.1); CARBON DIOXIDE 31 MMOL/L (21-32); CHLORIDE 101 MMOL/L (98-107); CREATININE 0.8 MG/DL (0.55-1.30); POTASSIUM 3.7 MMOL/L (3.5-5.1); SODIUM 140 MMOL/L (136-145)
[2017-05-23] MEDS: Dyna-Hex 2% Top Sol 2oz TOPIC SCH (21:05)
--- NOTE | 2017-05-23 21:24 | Infectious Diseases Prog Note ---
Assessment/Plan Assessment/Plan Full consult dictated: A) 1) bilateral leg cellulitis, left leg wound infection 2) allergies - sulfa 3) pmh noted 4) dvt P) 1) vancomycin, cefepime 2) check wound culture 3) thank you Subjective Allergies: Coded Allergies: SULFA (SULFONAMIDE ANTIBIOTICS) (Unverified Allergy, Unknown, 05/02/15) allergy history per Dr. Jones Objective Vital Signs Last 24 Hour Vital Signs Date Time Temp Pulse Resp B/P (MAP) Pulse Ox O2 Delivery O2 Flow Rate FiO2 05/23/17 20:00 97.9 84 20 109/69 99 05/23/17 08:59 97.9 88 21 114/71 99 Room Air 05/23/17 00:35 96 Room Air 05/23/17 00:32 97.7 94 21 117/81 96 Room Air 05/22/17 23:40 97.5 98 16 133/85 98 Room Air 05/22/17 22:25 97.5 98 16 133/85 98 Room Air Height (Feet): 6 Height (Inches): 1.00 Weight (Pounds): 455 Laboratory Tests Test 05/23/17 17:55 05/23/17 20:25 White Blood Count 5.8 K/UL (4.8-10.8) Red Blood Count 4.01 M/UL (4.20-5.40) L Hemoglobin 9.6 G/DL (12.0-16.0) L Hematocrit 33.2 % (37.0-47.0) L Mean Corpuscular Volume 83 FL (80-99) Mean Corpuscular Hemoglobin 23.9 PG (27.0-31.0) L Mean Corpuscular Hemoglobin Concent 28.9 G/DL (32.0-36.0) L Red Cell Distribution Width 14.1 % (11.6-14.8) Platelet Count 242 K/UL (150-450) Mean Platelet Volume 5.7 FL (6.5-10.1) L Neutrophils (%) (Auto) 68.2 % (45.0-75.0) Lymphocytes (%) (Auto) 14.6 % (20.0-45.0) L Monocytes (%) (Auto) 11.6 % (1.0-10.0) H Eosinophils (%) (Auto) 3.3 % (0.0-3.0) H Basophils (%) (Auto) 2.3 % (0.0-2.0) H Sodium Level 140 MMOL/L (136-145) Potassium Level 3.7 MMOL/L (3.5-5.1) Chloride Level 101 MMOL/L (98-107) Carbon Dioxide Level 31 MMOL/L (21-32) Anion Gap 8 mmol/L (5-15) Blood Urea Nitrogen 9 mg/dL (7-18) Creatinine 0.8 MG/DL (0.55-1.30) Estimat Glomerular Filtration Rate > 60 mL/min (>60) Glucose Level 98 MG/DL (74-106) Calcium Level 8.3 MG/DL (8.5-10.1) L Magnesium Level 1.5 MG/DL (1.8-2.4) L Total Bilirubin 0.2 MG/DL (0.2-1.0) Aspartate Amino Transf (AST/SGOT) 17 U/L (15-37) Alanine Aminotransferase (ALT/SGPT) 14 U/L (12-78) Alkaline Phosphatase 68 U/L (46-116) Total Protein 6.9 G/DL (6.4-8.2) Albumin 2.7 G/DL (3.4-5.0) L Globulin 4.2 g/dL Albumin/Globulin Ratio 0.6 (1.0-2.7) L Fibrinogen Pending Iron Level Pending Unsaturated Iron Binding Pending Ferritin Pending Vitamin B12 Level Pending Thyroid Stimulating Hormone (TSH) Pending Current Medications Medications (Trade) Dose Ordered Sig/Key Route PRN Reason Start Time Stop Time Status Last Admin Dose Admin Acetaminophen (Tylenol) 650 mg Q4H PRN ORAL Mild Pain (Pain Scale 1-3) 05/22/17 19:15 06/21/17 19:14 Acetaminophen (Tylenol) 650 mg Q4H PRN ORAL T>100.5 05/22/17 19:15 06/21/17 19:14 Acetaminophen (Tylenol) 650 mg Q4H PRN RECTAL Mild Pain (Pain Scale 1-3) 05/22/17 19:15 06/21/17 19:14 Apixaban (Eliquis) 5 mg BID ORAL 05/22/17 20:00 06/21/17 19:59 05/23/17 18:55 Bisacodyl (Dulcolax) 10 mg HSPRN PRN RECTAL Constipation 05/22/17 19:30 06/21/17 19:14 Cefepime HCl 2 gm/ Dextrose 55 ml @ 110 mls/hr EVERY 12 HOURS IVPB 05/23/17 09:00 05/30/17 08:59 05/23/17 12:56 Chlorhexidine Gluconate (Priti-Hex 2%) 1 applic DAILY@2000 TOPIC 05/23/17 20:00 06/22/17 19:59 Dextrose (Dextrose 50%) STAT PRN IV Hypoglycemia 05/22/17 19:15 06/21/17 19:14 Docusate Sodium (Colace) 100 mg EVERY 12 HOURS ORAL 05/22/17 21:00 06/21/17 20:59 05/23/17 09:04 Heparin Sodium/ Sodium Chloride (Heparin 2000 units/Ns 1000ml premix) 2,000 unit ONCE PRN INJ PICC LINE PLACEMENT 05/23/17 07:00 05/24/17 23:59 Hydromorphone HCl (Dilaudid) 0.5 mg Q4H PRN IVP Severe Pain (Pain Scale 7-10) 05/23/17 07:00 05/30/17 06:59 05/23/17 16:34 Lidocaine HCl (Xylocaine 1% 30ml) 30 ml ONCE PRN INJ PICC LINE PLACEMENT 05/23/17 07:00 05/24/17 23:59 Morphine Sulfate (Morphine Sulfate) 2 mg Q4H PRN IVP Moderate Pain (Pain Scale 4-6) 05/22/17 19:15 05/29/17 19:14 Ondansetron HCl (Zofran) 4 mg Q6H PRN IVP Nausea & Vomiting 05/22/17 19:15 06/21/17 19:14 Polyethylene Glycol (Miralax) 17 gm HSPRN PRN ORAL Constipation 05/22/17 21:00 06/21/17 20:59 Vancomycin HCl (Vanco rx to dose) 1 ea DAILY PRN MISC Per rx protocol 05/22/17 19:15 06/21/17 19:14 Vancomycin HCl/ Dextrose 250 ml @ 125 mls/hr Q12HR@0800,2000 IVPB 05/23/17 08:00 05/28/17 07:59 05/23/17 09:04 ASTER HACKETT May 23, 2017 21:24
[2017-05-23 21:42] LABS: FERRITIN 26 NG/ML (8-388)
[2017-05-23 21:57] LABS: % IRON SATURATION 9 % (15-50); IRON 25 ug/dL (50-175); TOTAL IRON BINDING CAPACITY 275 ug/dL (250-450)
[2017-05-24] MEDS: Hydromorphone 0.5mg/0.5ml inj IVP PRN ×4 (01:49→20:26)
--- NOTE | 2017-05-24 05:30 | Consultation ---
DATE OF CONSULTATION: 05/23/2017 NOTE: POOR AUDIO HEMATOLOGY/ONCOLOGY CONSULTATION CONSULTING PHYSICIAN: Dinesh Rodríguez M.D. REQUESTING PHYSICIAN: 1. Dalia Holm M.D. 2. Sofia Ambrose M.D. REASON FOR CONSULTATION: Evaluation of DVT of the left lower extremity and anticoagulation. IDENTIFYING DATA: Dear Dr. Holm and Dr. Black, The patient is a pleasant 56-year-old female with past medical history significant for morbid obesity, hypertension, DVT on anticoagulation, Eliquis for the past six months, presents with bilateral lower extremity pain, redness, swelling, several days, and history of cellulitis previously treated with antibiotics. She states she switched from the Xarelto to Eliquis states that she has been on Eliquis for the past six months bleeding, most recent one yesterday was spotting, passing a clot. She has been seen by workup and results are pending at this time. Unclear if biopsy. Hematology Service consulted for further evaluation and treatment. PAST MEDICAL HISTORY: As noted above. PAST SURGICAL HISTORY: None noted. MEDICATIONS: , benazepril, Colace, Oxistat, , and hydrochlorothiazide. ALLERGIES: Sulfa. FAMILY HISTORY: Noncontributory. SOCIAL HISTORY: Lives at home. No alcohol, tobacco, or illicit drug use. REVIEW OF SYSTEMS: A 12-point review of systems otherwise completed and was negative. PHYSICAL EXAMINATION: GENERAL: No acute distress. VITAL SIGNS: Reviewed. PULMONARY: Decreased breath sounds. CARDIOVASCULAR: Regular rate. No S3 or S4. ABDOMEN: Soft, nontender, and nondistended. EXTREMITIES: A 1+ to 2+ edema. Left . No drainage noted. Positive for erythema induration. left. LABORATORY AND DIAGNOSTIC DATA: WBC 10.3, hemoglobin , hematocrit , and platelet count 265,000. Imaging reviewed notably shows acute thrombus in the distal popliteal vein, proximal posterior tibial vein. ASSESSMENT AND RECOMMENDATION: 1. Acute deep vein thrombosis in the left distal popliteal vein and proximal posterior tibial vein. The patient has been on Eliquis for approximately six months. Continues to be as well. At this time, consider to discharge the patient either on Coumadin and/or consider placement of inferior vena cava filter. Anticoagulation obviously can increase the risk of bleeding, so Coumadin will increase the risk of bleeding and/or bleeding risk, though Eliquis is less than Xarelto. We will discuss with the patient in regards to potential anticoagulation versus inferior vena cava filter. 2. Anemia, secondary to vaginal bleeding. Obtain anemia workup. 3. Left leg cellulitis and wound. Continue antibiotics as well as wound care. Elevation of legs. 4. breakdown. 5. Hypokalemia, replete as needed. 6. Again, we will need to discuss with the patient and primary provider in regards to anticoagulation and/or placement of inferior vena cava filter, especially in the setting of postmenopausal bleeding and currently decision is not urgent and we will probably need to further evaluate before reaching final conclusion. Dinesh Rodríguez M.D. DR: MONA JOB#: [id number] CC:
[2017-05-24 07:27] LABS: BASOPHILS % (AUTO) 1.5 % (0.0-2.0); EOSINOPHILS % (AUTO) 3.7 % (0.0-3.0); HEMATOCRIT 33.3 % (37.0-47.0); HEMOGLOBIN 10.5 G/DL (12.0-16.0); LYMPHOCYTES % (AUTO) 17.7 % (20.0-45.0); MEAN CORPUSCULAR VOLUME 81 FL (80-99); MONOCYTES % (AUTO) 14.1 % (1.0-10.0); PLATELET COUNT 245 K/UL (150-450); RED CELL DISTRIBUTION WIDTH 14.3 % (11.6-14.8); WHITE BLOOD COUNT 6.7 K/UL (4.8-10.8)
[2017-05-24 07:57] LABS: ANION GAP 6 mmol/L (5-15); BLOOD UREA NITROGEN 10 mg/dL (7-18); CALCIUM 8.3 MG/DL (8.5-10.1); CARBON DIOXIDE 30 MMOL/L (21-32); CHLORIDE 102 MMOL/L (98-107); CREATININE 0.8 MG/DL (0.55-1.30); POTASSIUM 3.5 MMOL/L (3.5-5.1); SODIUM 138 MMOL/L (136-145)
[2017-05-24] MEDS: Vancomycin 1.5 GM/D5W 250ML IVPB SCH ×2 (08:32→20:21)
--- NOTE | 2017-05-24 10:05 | Diagnostic Imaging Report ---
Indication:Lower abdominal and pelvic pain Technique: Grayscale and duplex Doppler imaging of the pelvis performed utilizing a transabdominal scan. Patient refused the endovaginal portion of the exam. Comparison: None Findings: Study is very limited. The uterus is noted and heterogeneous measuring 12.3 x 6.2 x 7.7 cm. Endometrium is not well visualized. Neither ovary is seen. IMPRESSION: Heterogeneous enlarged uterus. Relatively nondiagnostic examination.
[2017-05-24] MEDS: Eliquis 2.5mg tablet ORAL SCH ×2 (10:09→18:11)
[2017-05-24] MEDS: Docusate 100mg cap ORAL SCH ×2 (10:10→20:21)
[2017-05-24] MEDS: Cefepime HCl 2 GM in D5W 55 ML IVPB SCH ×2 (10:10→20:27)
--- NOTE | 2017-05-24 11:06 | General Progress Note ---
Assessment/Plan Problem List: (1) Bilateral lower leg cellulitis ICD Codes: L03.116 - Cellulitis of left lower limb; L03.115 - Cellulitis of right lower limb SNOMED: 438489545 (2) Venous stasis ICD Codes: I87.8 - Other specified disorders of veins SNOMED: 20340248 (3) lateral posterior left leg superficial skin breakdown ulcer (4) Acute DVT of LLE (5) Vaginal bleeding ICD Codes: N93.9 - Abnormal uterine and vaginal bleeding, unspecified SNOMED: 141550369, 556747197 (6) Acute blood loss anemia ICD Codes: D62 - Acute posthemorrhagic anemia SNOMED: 432425888 (7) Morbid obesity ICD Codes: E66.01 - Morbid (severe) obesity due to excess calories SNOMED: 541687172 (8) HTN (hypertension) ICD Codes: I10 - Essential (primary) hypertension SNOMED: 49206935 (9) Hypokalemia ICD Codes: E87.6 - Hypokalemia SNOMED: 40831786 Status: stable Assessment/Plan ID consulted, appreciate rec's Cont empiric vanco and cefepime for leg cellulitis (05/22-) Wound care General surgery consulted given L leg wound, appreciate assistance U/S BLE venous duplex reviewed. Hematology consulted given acute DVT despite being on Eliquis. Pt states has been on it for abt 6mo. Cont Eliquis for now Check U/S pelvis given vaginal bleeding--enlarged uterus, unremarkable F/u outpatient urogynecology physician (sees Dr. Zuniga) Replete lytes Cont home meds PT/OT eval Pain control, supportive care, bowel regimen SW consulted for SNF placement DVT Prophylaxis: SCD, Eliquis Code Status: Full Hospital Classification Declaration: Based on this initial evaluation, and depending on the patient's clinical course, I anticipate that this patient will require hospitalization for 2-3 days for cellulitis, vaginal bleeding, and close respiratory/hemodynamic monitoring. Disposition: Once the patient is stable to leave the hospital, I anticipate the patient will likely be discharged to the following environment: home with HH vs SNF Discussed with patient/family, nursing staff, SW/CM, ID, hematology regarding clinical status, treatment course, and disposition planning. D/w ID re abx. D/w hematology re AC. D/w surgery re leg ulcer Time of note may not reflect time of encounter. Subjective Date patient seen: May 24, 2017 Time patient seen: 11:06 ROS Limited/Unobtainable: No Constitutional: Reports: no symptoms HEENT: Reports: no symptoms Cardiovascular: Reports: no symptoms Respiratory: Reports: no symptoms Gastrointestinal/Abdominal: Reports: no symptoms Genitourinary: Reports: no symptoms Neurologic/Psychiatric: Reports: no symptoms Endocrine: Reports: no symptoms Hematologic/Lymphatic: Reports: no symptoms Allergies: Coded Allergies: SULFA (SULFONAMIDE ANTIBIOTICS) (Unverified Allergy, Unknown, 05/02/15) allergy history per Dr. Jones All Systems: reviewed and negative except above Subjective No acute o/n events Cont on IV abx per ID Seen by gen surg and acute surgical interventions warranted Pt doing well. Denies f/c, n/v, d/c, chest pain, SOB. BLE swelling/pain/redness improving Objective Last 24 Hour Vital Signs Date Time Temp Pulse Resp B/P (MAP) Pulse Ox O2 Delivery O2 Flow Rate FiO2 05/23/17 20:00 97.9 84 20 109/69 99 Intake and Output 05/23/17 05/24/17 19:00 07:00 Intake Total 1670 ml 785 ml Balance 1670 ml 785 ml Intake Oral 840 ml 480 ml IV Total 830 ml 305 ml # Voids 6 2 Laboratory Tests 05/23/17 17:55: White Blood Count 5.8, Red Blood Count 4.01L, Hemoglobin 9.6L, Hematocrit 33.2L , Mean Corpuscular Volume 83, Mean Corpuscular Hemoglobin 23.9L, Mean Corpuscular Hemoglobin Concent 28.9L, Red Cell Distribution Width 14.1, Platelet Count 242, Mean Platelet Volume 5.7L, Neutrophils (%) (Auto) 68.2, Lymphocytes (%) (Auto) 14.6L, Monocytes (%) (Auto) 11.6H, Eosinophils (%) (Auto ) 3.3H, Basophils (%) (Auto) 2.3H, Sodium Level 140, Potassium Level 3.7, Chloride Level 101, Carbon Dioxide Level 31, Anion Gap 8, Blood Urea Nitrogen 9 , Creatinine 0.8, Estimat Glomerular Filtration Rate > 60, Glucose Level 98, Calcium Level 8.3L, Magnesium Level 1.5L, Total Bilirubin 0.2, Aspartate Amino Transf (AST/SGOT) 17, Alanine Aminotransferase (ALT/SGPT) 14, Alkaline Phosphatase 68, Total Protein 6.9, Albumin 2.7L, Globulin 4.2, Albumin/Globulin Ratio 0.6L 05/23/17 20:25: Fibrinogen 487H, Iron Level 25L, Total Iron Binding Capacity 275, Percent Iron Saturation 9L, Unsaturated Iron Binding 250, Ferritin 26, Vitamin B12 Level 420 , Thyroid Stimulating Hormone (TSH) 0.645 05/24/17 07:05: White Blood Count 6.7, Red Blood Count 4.10L, Hemoglobin 10.5L, Hematocrit 33.3L , Mean Corpuscular Volume 81, Mean Corpuscular Hemoglobin 25.6L, Mean Corpuscular Hemoglobin Concent 31.5L, Red Cell Distribution Width 14.3, Platelet Count 245, Mean Platelet Volume 6.0L, Neutrophils (%) (Auto) 63.0, Lymphocytes (%) (Auto) 17.7L, Monocytes (%) (Auto) 14.1H, Eosinophils (%) (Auto ) 3.7H, Basophils (%) (Auto) 1.5, Sodium Level 138, Potassium Level 3.5, Chloride Level 102, Carbon Dioxide Level 30, Anion Gap 6, Blood Urea Nitrogen 10 , Creatinine 0.8, Estimat Glomerular Filtration Rate > 60, Glucose Level 94, Calcium Level 8.3L, Magnesium Level 1.5L 05/24/17 10:20: Stool Occult Blood [Pending] Height (Feet): 6 Height (Inches): 1.00 Weight (Pounds): 455 Objective General: alert, cooperative, no distress, appears stated age, obese Head: normocephalic, without obvious abnormality, atraumatic Eyes: conjunctivae/corneas clear. PERRL, EOM's intact Throat: lips, mucosa, and tongue normal. MMM Neck: supple, symmetrical, trachea midline, and no JVD Lungs: clear to auscultation bilaterally Heart: regular rate and rhythm, S1, S2 normal, no murmur, click, rub or gallop Abdomen: soft, non-tender, non-distended, bowel sounds normal Extremities: extremities normal, atraumatic, no cyanosis or edema Pulses: 2+ and symmetric Skin: skin color, texture, turgor normal; LLE>RLE edema w/ mild erythema/warmth /TTP, +lateral posterior left distal leg with large area of superficial skin breakdown and ulceration likely venous stasis ulcer, no drainage Neurologic: grossly normal, no focal deficits Sofia Ambrose M.D. May 24, 2017 11:06
[2017-05-24 11:52] VITALS: BP 143/84
--- NOTE | 2017-05-24 13:46 | Wound Care Consultation ---
Wound Assessment Wound Assessment : Wound Number: 1 Wound Present on Admission: Yes New Wound: No Status Change of Wound: No Wound Location Body Site Modif: left, lower, lateral Wound Location Body Site: leg Wound Type: other - open wound Akash Test: Does not Akash Wound Thickness: Full Thickness Wound Length: 5.5 Wound Width: 5.0 Wound Depth: 0.2 Percent of Wound [place]/Red: 100 Wound Drainage Description: Serosanguineous Wound Drainage Amount: Moderate Wound Drainage Odor: None/Absent Tissue Surrounding Wound: Indurated Wound General Appearance: Reddened, Draining Wound Comment #1 Pt admitted with lower extremity cellulitis and left lower lateral leg with open wound Recommendation -Cleanse with saline, pat dry, apply Xeroform drg, cover with Bordered gauze daily and PRN soiled/dislodged -Offload both heels -Heel protector while in bed -Optimize nutrition -Assess and f/u with Md for any changes JOHAN SUAREZ RN May 24, 2017 13:46
--- NOTE | 2017-05-24 15:15 | General Surgery Progress Note ---
General Surgery-Progress Note Subjective Symptoms: improved Additional Comments doing well. has been keeping her legs elevated and today edema improved. wound unchanged and clean. otherwise well. Objective Last 24 Hour Vital Signs Date Time Temp Pulse Resp B/P (MAP) Pulse Ox O2 Delivery O2 Flow Rate FiO2 05/24/17 11:52 97.1 85 21 143/84 97 Room Air 05/23/17 20:00 97.9 84 20 109/69 99 I&O Intake and Output 05/23/17 05/24/17 19:00 07:00 Intake Total 1670 ml 785 ml Balance 1670 ml 785 ml Intake Oral 840 ml 480 ml IV Total 830 ml 305 ml # Voids 6 2 Dressing: saturated Wound: clean Drains: none Cardiovascular: RSR Respiratory: clear Abdomen: soft, non-tender, present bowel sounds Extremities: edema, no tenderness, no cyanosis Laboratory Tests Test 05/23/17 17:55 05/23/17 20:25 05/24/17 07:05 05/24/17 10:20 White Blood Count 5.8 K/UL (4.8-10.8) 6.7 K/UL (4.8-10.8) Red Blood Count 4.01 M/UL (4.20-5.40) L 4.10 M/UL (4.20-5.40) L Hemoglobin 9.6 G/DL (12.0-16.0) L 10.5 G/DL (12.0-16.0) L Hematocrit 33.2 % (37.0-47.0) L 33.3 % (37.0-47.0) L Mean Corpuscular Volume 83 FL (80-99) 81 FL (80-99) Mean Corpuscular Hemoglobin 23.9 PG (27.0-31.0) L 25.6 PG (27.0-31.0) L Mean Corpuscular Hemoglobin Concent 28.9 G/DL (32.0-36.0) L 31.5 G/DL (32.0-36.0) L Red Cell Distribution Width 14.1 % (11.6-14.8) 14.3 % (11.6-14.8) Platelet Count 242 K/UL (150-450) 245 K/UL (150-450) Mean Platelet Volume 5.7 FL (6.5-10.1) L 6.0 FL (6.5-10.1) L Neutrophils (%) (Auto) 68.2 % (45.0-75.0) 63.0 % (45.0-75.0) Lymphocytes (%) (Auto) 14.6 % (20.0-45.0) L 17.7 % (20.0-45.0) L Monocytes (%) (Auto) 11.6 % (1.0-10.0) H 14.1 % (1.0-10.0) H Eosinophils (%) (Auto) 3.3 % (0.0-3.0) H 3.7 % (0.0-3.0) H Basophils (%) (Auto) 2.3 % (0.0-2.0) H 1.5 % (0.0-2.0) Sodium Level 140 MMOL/L (136-145) 138 MMOL/L (136-145) Potassium Level 3.7 MMOL/L (3.5-5.1) 3.5 MMOL/L (3.5-5.1) Chloride Level 101 MMOL/L (98-107) 102 MMOL/L (98-107) Carbon Dioxide Level 31 MMOL/L (21-32) 30 MMOL/L (21-32) Anion Gap 8 mmol/L (5-15) 6 mmol/L (5-15) Blood Urea Nitrogen 9 mg/dL (7-18) 10 mg/dL (7-18) Creatinine 0.8 MG/DL (0.55-1.30) 0.8 MG/DL (0.55-1.30) Estimat Glomerular Filtration Rate > 60 mL/min (>60) > 60 mL/min (>60) Glucose Level 98 MG/DL (74-106) 94 MG/DL (74-106) Calcium Level 8.3 MG/DL (8.5-10.1) L 8.3 MG/DL (8.5-10.1) L Magnesium Level 1.5 MG/DL (1.8-2.4) L 1.5 MG/DL (1.8-2.4) L Total Bilirubin 0.2 MG/DL (0.2-1.0) Aspartate Amino Transf (AST/SGOT) 17 U/L (15-37) Alanine Aminotransferase (ALT/SGPT) 14 U/L (12-78) Alkaline Phosphatase 68 U/L (46-116) Total Protein 6.9 G/DL (6.4-8.2) Albumin 2.7 G/DL (3.4-5.0) L Globulin 4.2 g/dL Albumin/Globulin Ratio 0.6 (1.0-2.7) L Fibrinogen 487 mg/dL (200-400) H Iron Level 25 ug/dL (50-175) L Total Iron Binding Capacity 275 ug/dL (250-450) Percent Iron Saturation 9 % (15-50) L Unsaturated Iron Binding 250 ug/dL (112-346) Ferritin 26 NG/ML (8-388) Vitamin B12 Level 420 PG/ML (193-986) Thyroid Stimulating Hormone (TSH) 0.645 uiU/mL (0.358-3.740) Stool Occult Blood Negative (NEGATIVE) Plan Problems: (1) Left leg cellulitis Assessment & Plan: 56F with multiple medical problems has left leg cellulitis with wound. there is a lateral posterior left leg superficial skin breakdown ulcer noted likely from venous stasis, edema and cellulitis. no abscess or area of fluctuance noted. does have DVT in pop vein on left side. currently with local wound care. no acute surgical intervention necessary. no area of abscess or fluctuance needing I&D noted. possible to develop in future with chronic cellulitis. local wound care okay for now. would not recommend debridement of wounds given they are clean and intact. may require debridement at later time. -cont with IV abx -cont with local wound care (soft dressings and skin protectant). appreciate wound nurse team input -keep bilateral lower extremities elevated when possible. has poor venous flow which is making edema, cellulitis and wounds worse. -continue DVT anticoagulation. will need to monitor DVT to ensure not propagating thank you for this consultation and for allowing me to participate in [facility]'s care. will follow with recs and monitor wound. Chuy Damian May 24, 2017 15:15
[2017-05-24 16:01] VITALS: BP 119/69
--- NOTE | 2017-05-24 19:30 | Infectious Diseases Prog Note ---
Assessment/Plan Assessment/Plan Full consult dictated: A) 1) bilateral leg cellulitis, left leg wound infection 2) allergies - sulfa 3) pmh noted 4) dvt P) 1) vancomycin, cefepime - day # 2 2) check wound culture 3) will likely need iv abx Subjective Constitutional: Denies: fever HEENT: Denies: congestion Respiratory: Denies: shortness of breath Cardiovascular: Denies: chest pain Gastrointestinal/Abdominal: Denies: nausea, vomiting Neurologic: Denies: headache Psychiatric: Denies: depression Allergies: Coded Allergies: SULFA (SULFONAMIDE ANTIBIOTICS) (Unverified Allergy, Unknown, 05/02/15) allergy history per Dr. Jones Objective Vital Signs Last 24 Hour Vital Signs Date Time Temp Pulse Resp B/P (MAP) Pulse Ox O2 Delivery O2 Flow Rate FiO2 05/24/17 16:01 98.1 81 22 119/69 99 Room Air 05/24/17 16:01 Room Air 05/24/17 12:00 Room Air 05/24/17 11:52 97.1 85 21 143/84 97 Room Air 05/23/17 20:00 97.9 84 20 109/69 99 Height (Feet): 6 Height (Inches): 1.00 Weight (Pounds): 455 General Appearance: no acute distress HEENT: normocephalic, atraumatic, anicteric, mucous membranes moist Respiratory/Chest: lungs clear, normal breath sounds, no respiratory distress, no accessory muscle use Cardiovascular: normal rate, regular rhythm Abdomen: normal bowel sounds, soft, non tender, no organomegaly Microbiology Date/Time Source Procedure Growth Status 05/22/17 18:15 Blood Blood Culture - Preliminary NO GROWTH AFTER 24 HOURS Resulted 05/22/17 18:15 Blood Blood Culture - Preliminary NO GROWTH AFTER 24 HOURS Resulted 05/24/17 13:00 Nasal Nares Influenza Types A,B Antigen (SINDY) - Final Complete 05/23/17 04:10 Leg Left Gram Stain - Final Resulted 05/23/17 04:10 Leg Left Wound Culture - Preliminary Resulted Laboratory Tests Test 05/23/17 20:25 05/24/17 07:05 05/24/17 10:20 Fibrinogen 487 mg/dL (200-400) H Iron Level 25 ug/dL (50-175) L Total Iron Binding Capacity 275 ug/dL (250-450) Percent Iron Saturation 9 % (15-50) L Unsaturated Iron Binding 250 ug/dL (112-346) Ferritin 26 NG/ML (8-388) Vitamin B12 Level 420 PG/ML (193-986) Thyroid Stimulating Hormone (TSH) 0.645 uiU/mL (0.358-3.740) White Blood Count 6.7 K/UL (4.8-10.8) Red Blood Count 4.10 M/UL (4.20-5.40) L Hemoglobin 10.5 G/DL (12.0-16.0) L Hematocrit 33.3 % (37.0-47.0) L Mean Corpuscular Volume 81 FL (80-99) Mean Corpuscular Hemoglobin 25.6 PG (27.0-31.0) L Mean Corpuscular Hemoglobin Concent 31.5 G/DL (32.0-36.0) L Red Cell Distribution Width 14.3 % (11.6-14.8) Platelet Count 245 K/UL (150-450) Mean Platelet Volume 6.0 FL (6.5-10.1) L Neutrophils (%) (Auto) 63.0 % (45.0-75.0) Lymphocytes (%) (Auto) 17.7 % (20.0-45.0) L Monocytes (%) (Auto) 14.1 % (1.0-10.0) H Eosinophils (%) (Auto) 3.7 % (0.0-3.0) H Basophils (%) (Auto) 1.5 % (0.0-2.0) Sodium Level 138 MMOL/L (136-145) Potassium Level 3.5 MMOL/L (3.5-5.1) Chloride Level 102 MMOL/L (98-107) Carbon Dioxide Level 30 MMOL/L (21-32) Anion Gap 6 mmol/L (5-15) Blood Urea Nitrogen 10 mg/dL (7-18) Creatinine 0.8 MG/DL (0.55-1.30) Estimat Glomerular Filtration Rate > 60 mL/min (>60) Glucose Level 94 MG/DL (74-106) Calcium Level 8.3 MG/DL (8.5-10.1) L Magnesium Level 1.5 MG/DL (1.8-2.4) L Stool Occult Blood Negative (NEGATIVE) Current Medications Medications (Trade) Dose Ordered Sig/Key Route PRN Reason Start Time Stop Time Status Last Admin Dose Admin Acetaminophen (Tylenol) 650 mg Q4H PRN ORAL Mild Pain (Pain Scale 1-3) 05/22/17 19:15 06/21/17 19:14 Acetaminophen (Tylenol) 650 mg Q4H PRN ORAL T>100.5 05/22/17 19:15 06/21/17 19:14 Acetaminophen (Tylenol) 650 mg Q4H PRN RECTAL Mild Pain (Pain Scale 1-3) 05/22/17 19:15 06/21/17 19:14 Apixaban (Eliquis) 5 mg BID ORAL 05/22/17 20:00 06/21/17 19:59 05/24/17 18:11 Bisacodyl (Dulcolax) 10 mg HSPRN PRN RECTAL Constipation 05/22/17 19:30 06/21/17 19:14 Cefepime HCl 2 gm/ Dextrose 55 ml @ 110 mls/hr EVERY 12 HOURS IVPB 05/23/17 09:00 05/30/17 08:59 05/24/17 10:10 Cetylpyridinium Chloride (Cepacol) 1 lozenge Q2H PRN JEREMY sore throat 05/24/17 07:30 06/23/17 07:29 Chlorhexidine Gluconate (Priti-Hex 2%) 1 applic DAILY@2000 TOPIC 05/23/17 20:00 06/22/17 19:59 05/23/17 21:05 Dextrose (Dextrose 50%) STAT PRN IV Hypoglycemia 05/22/17 19:15 06/21/17 19:14 Docusate Sodium (Colace) 100 mg EVERY 12 HOURS ORAL 05/22/17 21:00 06/21/17 20:59 05/24/17 10:10 Guaifenesin/ Dextromethorphan (Robitussin DM) 10 ml Q4H PRN ORAL For Cough 05/24/17 07:30 06/23/17 07:29 Heparin Sodium/ Sodium Chloride (Heparin 2000 units/Ns 1000ml premix) 2,000 unit ONCE PRN INJ PICC LINE PLACEMENT 05/23/17 07:00 05/24/17 23:59 Hydromorphone HCl (Dilaudid) 0.5 mg Q4H PRN IVP Severe Pain (Pain Scale 7-10) 05/23/17 07:00 05/30/17 06:59 05/24/17 13:07 Lidocaine HCl (Xylocaine 1% 30ml) 30 ml ONCE PRN INJ PICC LINE PLACEMENT 05/23/17 07:00 05/24/17 23:59 Morphine Sulfate (Morphine Sulfate) 2 mg Q4H PRN IVP Moderate Pain (Pain Scale 4-6) 05/22/17 19:15 05/29/17 19:14 Ondansetron HCl (Zofran) 4 mg Q6H PRN IVP Nausea & Vomiting 05/22/17 19:15 06/21/17 19:14 Polyethylene Glycol (Miralax) 17 gm HSPRN PRN ORAL Constipation 05/22/17 21:00 06/21/17 20:59 Vancomycin HCl (Vanco rx to dose) 1 ea DAILY PRN MISC Per rx protocol 05/22/17 19:15 06/21/17 19:14 Vancomycin HCl/ Dextrose 250 ml @ 125 mls/hr Q12HR@0800,2000 IVPB 05/23/17 08:00 05/28/17 07:59 05/24/17 08:32 ASTER HACKETT May 24, 2017 19:29
[2017-05-24 20:00] VITALS: BP 118/68
[2017-05-24] MEDS: Dyna-Hex 2% Top Sol 2oz TOPIC SCH (20:21)
--- NOTE | 2017-05-24 20:43 | General Progress Note ---
Assessment/Plan Assessment/Plan # DVT (on AC) of the left lower extremity popliteal vein -- could be related 2/ 2 inflammatory process and stasis --> okay to continue eliquis, may need to switch to coumadin if patients eliquis is ineffective --> if DVT progresses, other 2 options are to start a heparin gtt or to place ivc filter, though at this current time, no contraindiation for AC and does have a stable H/H # Anemia of iron deficiency, ferritin is very low --> begin on IV iron treatment, # B/l leg swelling/pain/redness. Pt notes symptoms for the past few days. She has a history of cellulitis of leg previously treated with antibiotics. # Vaginal bleed # Hypokalemia Subjective Constitutional: Denies: no symptoms, chills, diaphoresis, fever, malaise, weakness, other Cardiovascular: Denies: no symptoms, chest pain, edema, irregular heart rate, lightheadedness, palpitations, syncope, other Respiratory: Denies: no symptoms, cough, orthopnea, shortness of breath, SOB with excertion, SOB at rest, sputum, stridor, wheezing, other Gastrointestinal/Abdominal: Denies: no symptoms, abdomen distended, abdominal pain, black stools, tarry stools, blood in stool, constipated, diarrhea, difficulty swallowing, nausea, poor appetite, poor fluid intake, rectal bleeding , vomiting, other Genitourinary: Denies: no symptoms, burning, discharge, frequency, flank pain, hematuria, incontinence, pain, urgency, other Neurologic/Psychiatric: Denies: no symptoms, anxiety, depressed, emotional problems, headache, numbness, paresthesia, pre-existing deficit, seizure, tingling, tremors, weakness, other Endocrine: Denies: no symptoms, excessive sweating, flushing, intolerance to cold, intolerance to heat, increased hunger, increased thirst, increased urine, unexplained weight gain, unexplained weight loss, other Hematologic/Lymphatic: Reports: anemia Allergies: Coded Allergies: SULFA (SULFONAMIDE ANTIBIOTICS) (Unverified Allergy, Unknown, 05/02/15) allergy history per Dr. Jones Subjective no events, bleeding improved Objective Last 24 Hour Vital Signs Date Time Temp Pulse Resp B/P (MAP) Pulse Ox O2 Delivery O2 Flow Rate FiO2 05/24/17 16:01 98.1 81 22 119/69 99 Room Air 05/24/17 16:01 Room Air 05/24/17 12:00 Room Air 05/24/17 11:52 97.1 85 21 143/84 97 Room Air Intake and Output 05/23/17 05/24/17 19:00 07:00 Intake Total 1670 ml 785 ml Balance 1670 ml 785 ml Intake Oral 840 ml 480 ml IV Total 830 ml 305 ml # Voids 6 2 Laboratory Tests 05/24/17 07:05: White Blood Count 6.7, Red Blood Count 4.10L, Hemoglobin 10.5L, Hematocrit 33.3L , Mean Corpuscular Volume 81, Mean Corpuscular Hemoglobin 25.6L, Mean Corpuscular Hemoglobin Concent 31.5L, Red Cell Distribution Width 14.3, Platelet Count 245, Mean Platelet Volume 6.0L, Neutrophils (%) (Auto) 63.0, Lymphocytes (%) (Auto) 17.7L, Monocytes (%) (Auto) 14.1H, Eosinophils (%) (Auto ) 3.7H, Basophils (%) (Auto) 1.5, Sodium Level 138, Potassium Level 3.5, Chloride Level 102, Carbon Dioxide Level 30, Anion Gap 6, Blood Urea Nitrogen 10 , Creatinine 0.8, Estimat Glomerular Filtration Rate > 60, Glucose Level 94, Calcium Level 8.3L, Magnesium Level 1.5L 05/24/17 10:20: Stool Occult Blood Negative Height (Feet): 6 Height (Inches): 1.00 Weight (Pounds): 455 General Appearance: lethargic EENT: TMs normal Neck: supple Cardiovascular: regular rhythm Respiratory/Chest: normal breath sounds Abdomen: no mass Extremities: non-tender Edema: 1+ Generalized Edema: mild edema, other - cellulitis of bl extremities Neurologic: 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 Dinesh Rodríguez May 24, 2017 20:43
--- NOTE | 2017-05-24 22:01 | Consultation ---
DATE OF CONSULTATION: 05/24/2017 INFECTIOUS DISEASES CONSULTATION CONSULTING PHYSICIAN: Slim Javed M.D. REFERRING PHYSICIAN: Dalia Holm M.D. REASON FOR CONSULTATION: Bilateral leg cellulitis possible infected wound left leg. The patient's chief complaint coming to the hospital is vaginal bleed and cellulitis. HISTORY OF PRESENT ILLNESS: The patient is a 56-year-old female who comes in to [facility] with vaginal bleed and bilateral leg swelling and redness and warmth. The patient has significant cellulitis of bilateral lower extremities and possible infected wound in the left lower extremity. Infectious Disease consultation is requested. The patient was started on vancomycin and cefepime. Wound cultures have been obtained and is pending at this time. Case was discussed with Dr. Black. MAR was noted. Orders were noted. Notes were reviewed. The patient has had a history of recurrent cellulitis in lower extremities and at this time it has been exacerbated over the last two days prior to admission. PAST MEDICAL HISTORY: Includes the history of following. The patient has a past medical history of DVT, history of recurrent cellulitis lower extremities, history of wounds, history of hypertension, and history of morbid obesity. No history of diabetes. She is on Eliquis for DVT though she is anticoagulated. MEDICATIONS: Upon reviewing the MAR, she is on the following medications Cepacol, Robitussin, cefepime, vancomycin, lidocaine, heparin, hydromorphone, Dilaudid, and Colace. She is on MiraLAX, Eliquis, Dulcolax, Tylenol, morphine, Zofran, and antibiotics of vancomycin and cefepime. Outside medications were noted and reconciliated. ALLERGIES: Include sulfa drugs. SOCIAL HISTORY: Negative for smoking, alcohol, or drug abuse. FAMILY HISTORY: Noncontributory. Negative for exposure to tuberculosis or cancer. REVIEW OF SYSTEMS: CONSTITUTIONAL: The patient has generalized weakness and fatigue. She has no fever, chills, or night sweats. HEAD AND NECK: No thrush. CARDIAC: No chest pain or palpitations. GASTROINTESTINAL: No nausea, vomiting, or diarrhea. GENITOURINARY: No Shah. PULMONARY: No congestion or shortness of breath. SKIN: No rash or itching. EXTREMITIES: She has extremity pain, redness, and warmth. NEUROLOGIC: No seizures. No weight loss. No night sweats. No chills. No dysuria or frequency. No hemoptysis or secretions. PHYSICAL EXAMINATION: VITAL SIGNS: Temperature is 98.1, pulse rate 81, respiratory rate 22, blood pressure 119/69, and saturation 99%. GENERAL: Alert, responsive, and oriented x3. No acute distress. HEAD AND NECK: Oral exam, no thrush. Eye exam, no icterus. Normocephalic. No facial droop. No neck stiffness. Neck is supple. HEART: Regular. No gallop or murmur. ABDOMEN: Soft. Positive bowel sounds. Nontender. LUNGS: Clear bilaterally. No rhonchi or rales. SKIN: No rash. MUSCULOSKELETAL: No evidence of septic arthritis. Lower extremity examination, she has bilateral leg swelling, redness, and warmth. She has left leg wound which has some slough. PERIPHERAL VASCULAR: No gangrene. NEUROLOGIC: Intact. Lines sites without phlebitis. She has a PICC line IV placed. She is alert and oriented x3. LABORATORY DATA: Laboratory data is as follows, white count 6.7 and hemoglobin 10.5. The patient's creatinine is normal at 0.8. Wound culture is pending of the left lower extremity. Influenza screen is negative. Blood cultures are negative. ASSESSMENT AND PLAN: 1. The patient has significant bilateral lower extremity cellulitis with possible infected wound of the left lower extremity. Continue vancomycin and cefepime. Check wound culture. This is day #2 of antibiotics. Plan on two-week course. PICC line will be placed. Continue IV cefepime and vancomycin for now. 2. The patient has history of hypertension. Blood pressure treatment per primary. 3. Deep vein thrombosis treatment per Hematology, Oncology, and primary. 4. Anticoagulation. 5. Anemia. 6. History of vaginal bleed. 7. Wound care per surgery and protocol. 8. Obesity. 9. Pain management. 10. Past medical history is noted. 11. Allergies to sulfa. 12. Social history is negative. 13. Family history is noncontributory. 14. MAR was noted. 15. Case discussed with RN. 16. Case discussed with Dr. Black. 17. Case discussed with . Slim Javed M.D. DR: ALEAH JOB#: [id number] CC:
[2017-05-25] VITALS: BP 111/75
[2017-05-25] MEDS: Hydromorphone 0.5mg/0.5ml inj IVP PRN ×5 (02:18→23:43)
[2017-05-25] MEDS: guaiFENesin DM 100mg/5ml ORAL PRN ×3 (02:38→23:43)
[2017-05-25 04:00] VITALS: BP 100/58
[2017-05-25 08:00] VITALS: BP 129/89
[2017-05-25] MEDS: Docusate 100mg cap ORAL SCH ×2 (08:56→20:46)
[2017-05-25] MEDS: Vancomycin 1.5 GM/D5W 250ML IVPB SCH ×2 (08:58→20:46)
[2017-05-25] MEDS: Eliquis 2.5mg tablet ORAL SCH (08:59)
--- NOTE | 2017-05-25 10:31 | General Progress Note ---
Assessment/Plan Assessment/Plan # DVT (on AC) of the left lower extremity popliteal vein -- could be related 2/ 2 inflammatory process and stasis, cellulitis making clot return, has been dealing with recurrent clots since 2012. Have discussed extensively with her the prior treatments she has received, which have included coumadin, eliquis, xarelto, lovenox --> given h/h stable, okay to proceed with anticoag, in the past did well on xarelto and only reason it was changed was because of drug interaction, therefore restart it --> if DVT progresses, other 2 options are to start a heparin gtt or to place ivc filter, though at this current time, no contraindiation for AC and does have a stable H/H # Anemia of iron deficiency, ferritin is very low --> continue on IV iron treatment, # B/l leg swelling/pain/redness. Pt notes symptoms for the past few days. She has a history of cellulitis of leg previously treated with antibiotics. # Vaginal bleed # Hypokalemia Subjective Constitutional: Denies: no symptoms, chills, diaphoresis, fever, malaise, weakness, other HEENT: Denies: no symptoms, eye pain, blurred vision, tearing, double vision, ear pain, ear discharge, nose pain, nose congestion, throat pain, throat swelling, mouth pain, mouth swelling, other Cardiovascular: Denies: no symptoms, chest pain, edema, irregular heart rate, lightheadedness, palpitations, syncope, other Gastrointestinal/Abdominal: Denies: no symptoms, abdomen distended, abdominal pain, black stools, tarry stools, blood in stool, constipated, diarrhea, difficulty swallowing, nausea, poor appetite, poor fluid intake, rectal bleeding , vomiting, other Genitourinary: Denies: no symptoms, burning, discharge, frequency, flank pain, hematuria, incontinence, pain, urgency, other Neurologic/Psychiatric: Denies: no symptoms, anxiety, depressed, emotional problems, headache, numbness, paresthesia, pre-existing deficit, seizure, tingling, tremors, weakness, other Endocrine: Denies: no symptoms, excessive sweating, flushing, intolerance to cold, intolerance to heat, increased hunger, increased thirst, increased urine, unexplained weight gain, unexplained weight loss, other Hematologic/Lymphatic: Denies: no symptoms, anemia, easy bleeding, easy bruising, other Allergies: Coded Allergies: SULFA (SULFONAMIDE ANTIBIOTICS) (Unverified Allergy, Unknown, 05/02/15) allergy history per Dr. Jones Subjective no events, bleeding improved Objective Last 24 Hour Vital Signs Date Time Temp Pulse Resp B/P (MAP) Pulse Ox O2 Delivery O2 Flow Rate FiO2 05/25/17 04:00 97.9 85 19 100/58 99 Room Air 05/25/17 00:00 99 Room Air 05/25/17 00:00 97.9 83 19 111/75 99 05/24/17 20:00 98.0 80 20 118/68 100 05/24/17 20:00 100 Room Air 05/24/17 16:01 98.1 81 22 119/69 99 Room Air 05/24/17 16:01 Room Air 05/24/17 12:00 Room Air 05/24/17 11:52 97.1 85 21 143/84 97 Room Air Intake and Output 05/24/17 05/25/17 19:00 07:00 Intake Total 1265 ml 305 ml Balance 1265 ml 305 ml Intake Oral 960 ml IV Total 305 ml 305 ml # Voids 4 2 # Bowel Movements 2 1 Laboratory Tests 05/25/17 07:00: Vancomycin Level Trough 13.5H Height (Feet): 6 Height (Inches): 1.00 Weight (Pounds): 455 General Appearance: alert EENT: TMs normal Neck: supple Cardiovascular: normal rate Respiratory/Chest: normal breath sounds Abdomen: non tender Extremities: non-tender Edema: 1+ Leg (L), 1+ Leg (R) Edema: mild edema Neurologic: alert Skin: warm/dry Dinesh Rodríguez May 25, 2017 10:31
[2017-05-25 12:00] VITALS: BP 135/76
[2017-05-25] MEDS: Cefepime HCl 2 GM in D5W 55 ML IVPB SCH ×2 (12:16→20:46)
--- NOTE | 2017-05-25 14:49 | General Surgery Progress Note ---
General Surgery-Progress Note Subjective Symptoms: improved Additional Comments edema improved. ambulatory at times. keeps legs elevated. wounds stable. Objective Last 24 Hour Vital Signs Date Time Temp Pulse Resp B/P (MAP) Pulse Ox O2 Delivery O2 Flow Rate FiO2 05/25/17 04:00 97.9 85 19 100/58 99 Room Air 05/25/17 00:00 99 Room Air 05/25/17 00:00 97.9 83 19 111/75 99 05/24/17 20:00 98.0 80 20 118/68 100 05/24/17 20:00 100 Room Air 05/24/17 16:01 98.1 81 22 119/69 99 Room Air 05/24/17 16:01 Room Air I&O Intake and Output 05/24/17 05/25/17 19:00 07:00 Intake Total 1265 ml 305 ml Balance 1265 ml 305 ml Intake Oral 960 ml IV Total 305 ml 305 ml # Voids 4 2 # Bowel Movements 2 1 Dressing: saturated Wound: clean Drains: none Cardiovascular: RSR Respiratory: clear Abdomen: soft, non-tender, present bowel sounds Extremities: edema, no tenderness, no cyanosis Laboratory Tests Test 05/25/17 07:00 Vancomycin Level Trough 13.5 ug/mL (5.0-12.0) H Plan Problems: (1) Left leg cellulitis Assessment & Plan: 56F with multiple medical problems has left leg cellulitis with wound. there is a lateral posterior left leg superficial skin breakdown ulcer noted likely from venous stasis, edema and cellulitis. no abscess or area of fluctuance noted. does have DVT in pop vein on left side. currently with local wound care. no acute surgical intervention necessary. no area of abscess or fluctuance needing I&D noted. possible to develop in future with chronic cellulitis. local wound care okay for now. would not recommend debridement of wounds given they are clean and intact. may require debridement at later time. -cont with IV abx -cont with local wound care (soft dressings and skin protectant). appreciate wound nurse team input -keep bilateral lower extremities elevated when possible. has poor venous flow which is making edema, cellulitis and wounds worse. -continue DVT anticoagulation. will need to monitor DVT to ensure not propagating. will consider repeat ultrasound next week? thank you for this consultation and for allowing me to participate in [facility]'s care. will follow with recs and monitor wound. Chuy Damian May 25, 2017 14:49
[2017-05-25 16:05] VITALS: BP 121/69
[2017-05-25] MEDS: Xarelto 15mg tab ORAL SCH (17:20)
--- NOTE | 2017-05-25 18:10 | General Progress Note ---
Assessment/Plan Problem List: (1) Bilateral lower leg cellulitis ICD Codes: L03.116 - Cellulitis of left lower limb; L03.115 - Cellulitis of right lower limb SNOMED: 536643457 (2) Venous stasis ICD Codes: I87.8 - Other specified disorders of veins SNOMED: 79742238 (3) lateral posterior left leg superficial skin breakdown ulcer (4) Acute DVT of LLE (5) Vaginal bleeding ICD Codes: N93.9 - Abnormal uterine and vaginal bleeding, unspecified SNOMED: 924015590, 673190464 (6) Acute blood loss anemia ICD Codes: D62 - Acute posthemorrhagic anemia SNOMED: 057702585 (7) Morbid obesity ICD Codes: E66.01 - Morbid (severe) obesity due to excess calories SNOMED: 151212917 (8) HTN (hypertension) ICD Codes: I10 - Essential (primary) hypertension SNOMED: 19564840 (9) Hypokalemia ICD Codes: E87.6 - Hypokalemia SNOMED: 90849972 Status: stable Assessment/Plan ID consulted, appreciate rec's Cont empiric vanco and cefepime for leg cellulitis (05/22-)---cont for 10 days on discharge. Home IV abx ordered Cont wound care General surgery consulted given L leg wound, appreciate assistance U/S BLE venous duplex reviewed. Hematology consulted given acute DVT despite being on Eliquis. Pt states has been on it for abt 6mo. 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 They will start sergice on 05/26/17 per CM DVT Prophylaxis: SCD, Eliquis Code Status: Full Hospital Classification Declaration: Based on this initial evaluation, and depending on the patient's clinical course, I anticipate that this patient will require hospitalization for 2-3 days for cellulitis, vaginal bleeding, and close respiratory/hemodynamic monitoring. Disposition: Once the patient is stable to leave the hospital, I anticipate the patient will likely be discharged to the following environment: home with HH vs SNF Discussed with patient/family, nursing staff, SW/CM, ID, hematology regarding clinical status, treatment course, and disposition planning. D/w ID re abx. D/w hematology re AC. D/w surgery re leg ulcer Time of note may not reflect time of encounter. Subjective Allergies: Coded Allergies: SULFA (SULFONAMIDE ANTIBIOTICS) (Unverified Allergy, Unknown, 05/02/15) allergy history per Dr. Jones Subjective No acute o/n events Cont on IV abx per ID Seen by gen surg and no acute surgical interventions warranted Pt doing well. Denies f/c, n/v, d/c, chest pain, SOB. BLE swelling/pain/redness improving Objective Last 24 Hour Vital Signs Date Time Temp Pulse Resp B/P (MAP) Pulse Ox O2 Delivery O2 Flow Rate FiO2 05/25/17 16:05 97.9 88 21 121/69 97 Room Air 05/25/17 12:00 97.5 74 20 135/76 98 05/25/17 08:00 98.5 97 20 129/89 98 05/25/17 04:00 97.9 85 19 100/58 99 Room Air 05/25/17 00:00 99 Room Air 05/25/17 00:00 97.9 83 19 111/75 99 05/24/17 20:00 98.0 80 20 118/68 100 05/24/17 20:00 100 Room Air Intake and Output 05/24/17 05/25/17 19:00 07:00 Intake Total 1265 ml 305 ml Balance 1265 ml 305 ml Intake Oral 960 ml IV Total 305 ml 305 ml # Voids 4 2 # Bowel Movements 2 1 Laboratory Tests 05/25/17 07:00: Vancomycin Level Trough 13.5H Height (Feet): 6 Height (Inches): 1.00 Weight (Pounds): 455 Objective General: alert, cooperative, no distress, appears stated age, obese Head: normocephalic, without obvious abnormality, atraumatic Eyes: conjunctivae/corneas clear. PERRL, EOM's intact Throat: lips, mucosa, and tongue normal. MMM Neck: supple, symmetrical, trachea midline, and no JVD Lungs: clear to auscultation bilaterally Heart: regular rate and rhythm, S1, S2 normal, no murmur, click, rub or gallop Abdomen: soft, non-tender, non-distended, bowel sounds normal Extremities: extremities normal, atraumatic, no cyanosis or edema Pulses: 2+ and symmetric Skin: skin color, texture, turgor normal; LLE>RLE edema w/ mild erythema/warmth /TTP, +lateral posterior left distal leg with large area of superficial skin breakdown and ulceration likely venous stasis ulcer, no drainage Neurologic: grossly normal, no focal deficits Sofia Ambrose M.D. May 25, 2017 18:10
[2017-05-25 20:00] VITALS: BP 140/88
[2017-05-25] MEDS: Dyna-Hex 2% Top Sol 2oz TOPIC SCH (20:46)
[2017-05-26] VITALS: BP 114/52
[2017-05-26 04:00] VITALS: BP 126/70
[2017-05-26] MEDS: Hydromorphone 0.5mg/0.5ml inj IVP PRN ×2 (04:42→09:16)
[2017-05-26] MEDS: guaiFENesin DM 100mg/5ml ORAL PRN (05:20)
[2017-05-26] MEDS: Vancomycin 1.5 GM/D5W 250ML IVPB SCH (06:51)
[2017-05-26 08:00] VITALS: BP 140/73
[2017-05-26 09:02] VITALS: BP 140/73
[2017-05-26] MEDS: Xarelto 15mg tab ORAL SCH (09:16)
[2017-05-26] MEDS: Docusate 100mg cap ORAL SCH (09:16)
[2017-05-26] MEDS: Cefepime HCl 2 GM in D5W 55 ML IVPB SCH (09:17)
[2017-05-26 11:48] VITALS: BP 128/89
--- NOTE | 2017-05-26 12:10 | General Surgery Progress Note ---
General Surgery-Progress Note Subjective Symptoms: improved Additional Comments doing well. comfortable. ambulatory. edema improved. wounds stable. Objective Last 24 Hour Vital Signs Date Time Temp Pulse Resp B/P (MAP) Pulse Ox O2 Delivery O2 Flow Rate FiO2 05/26/17 11:48 97.6 91 19 128/89 96 05/26/17 09:46 97.6 05/26/17 09:02 97.5 85 19 140/73 97 05/26/17 08:00 97.5 85 19 140/73 97 05/26/17 04:00 97.3 88 20 126/70 95 05/26/17 00:00 97.7 22 114/52 96 05/25/17 20:00 98.1 86 20 140/88 97 05/25/17 16:05 97.9 88 21 121/69 97 Room Air I&O Intake and Output 05/25/17 05/26/17 19:00 07:00 Intake Total 1905 ml 785 ml Balance 1905 ml 785 ml Intake Oral 1600 ml 480 ml IV Total 305 ml 305 ml # Voids 5 3 # Bowel Movements 1 1 Dressing: saturated Wound: clean Drains: none Cardiovascular: RSR Respiratory: clear Abdomen: soft, non-tender, present bowel sounds Extremities: edema, other - left lower distal lateral leg ulceration with clean eschar. Plan Problems: (1) Left leg cellulitis Assessment & Plan: 56F with multiple medical problems has left leg cellulitis with wound. there is a lateral posterior left leg superficial skin breakdown ulcer noted likely from venous stasis, edema and cellulitis. no abscess or area of fluctuance noted. does have DVT in pop vein on left side. currently with local wound care. no acute surgical intervention necessary. no area of abscess or fluctuance needing I&D noted. possible to develop in future with chronic cellulitis. local wound care okay for now. would not recommend debridement of wounds given they are clean and intact. may require debridement at later time. -cont with IV abx -cont with local wound care (soft dressings and skin protectant). appreciate wound nurse team input -keep bilateral lower extremities elevated when possible. has poor venous flow which is making edema, cellulitis and wounds worse. -continue DVT anticoagulation. will need to monitor DVT to ensure not propagating. will consider repeat ultrasound next week? -okay to d/c from surgical standpoint thank you for this consultation and for allowing me to participate in [facility]'s care. will follow with recs and monitor wound. Chuy Damian May 26, 2017 12:10
--- NOTE | 2017-05-26 12:45 | Internal Med Progress Note ---
Subjective Physician Name YoselinNikki Attending Physician Dalia Holm Current Medications Medications (Trade) Dose Ordered Sig/Key Route PRN Reason Start Time Stop Time Status Last Admin Dose Admin Acetaminophen (Tylenol) 650 mg Q4H PRN ORAL Mild Pain (Pain Scale 1-3) 05/22/17 19:15 06/21/17 19:14 Acetaminophen (Tylenol) 650 mg Q4H PRN ORAL T>100.5 05/22/17 19:15 06/21/17 19:14 Acetaminophen (Tylenol) 650 mg Q4H PRN RECTAL Mild Pain (Pain Scale 1-3) 05/22/17 19:15 06/21/17 19:14 Bisacodyl (Dulcolax) 10 mg HSPRN PRN RECTAL Constipation 05/22/17 19:30 06/21/17 19:14 Cefepime HCl 2 gm/ Dextrose 55 ml @ 110 mls/hr EVERY 12 HOURS IVPB 05/23/17 09:00 05/30/17 08:59 05/26/17 09:17 Cetylpyridinium Chloride (Cepacol) 1 lozenge Q2H PRN JEREMY sore throat 05/24/17 07:30 06/23/17 07:29 Chlorhexidine Gluconate (Priti-Hex 2%) 1 applic DAILY@2000 TOPIC 05/23/17 20:00 06/22/17 19:59 05/25/17 20:46 Dextrose (Dextrose 50%) STAT PRN IV Hypoglycemia 05/22/17 19:15 06/21/17 19:14 Docusate Sodium (Colace) 100 mg EVERY 12 HOURS ORAL 05/22/17 21:00 06/21/17 20:59 05/26/17 09:16 Guaifenesin/ Dextromethorphan (Robitussin DM) 10 ml Q4H PRN ORAL For Cough 05/24/17 07:30 06/23/17 07:29 05/26/17 05:20 Hydromorphone HCl (Dilaudid) 0.5 mg Q4H PRN IVP Severe Pain (Pain Scale 7-10) 05/23/17 07:00 05/30/17 06:59 05/26/17 09:16 Morphine Sulfate (Morphine Sulfate) 2 mg Q4H PRN IVP Moderate Pain (Pain Scale 4-6) 05/22/17 19:15 05/29/17 19:14 Ondansetron HCl (Zofran) 4 mg Q6H PRN IVP Nausea & Vomiting 05/22/17 19:15 06/21/17 19:14 Polyethylene Glycol (Miralax) 17 gm HSPRN PRN ORAL Constipation 05/22/17 21:00 06/21/17 20:59 Rivaroxaban (Xarelto) 15 mg BID ORAL 05/25/17 18:00 06/24/17 17:59 05/26/17 09:16 Vancomycin HCl (Vanco rx to dose) 1 ea DAILY PRN MISC Per rx protocol 05/22/17 19:15 06/21/17 19:14 Vancomycin HCl/ Dextrose 250 ml @ 125 mls/hr Q12HR@0800,1999 IVPB 05/23/17 08:00 05/28/17 07:59 05/26/17 06:51 Allergies: Coded Allergies: SULFA (SULFONAMIDE ANTIBIOTICS) (Unverified Allergy, Unknown, 05/02/15) allergy history per Dr. Jones Objective Last Vital Signs Date Time Temp Pulse Resp B/P (MAP) Pulse Ox O2 Delivery O2 Flow Rate FiO2 05/26/17 11:48 97.6 91 19 128/89 96 05/25/17 16:05 Room Air Microbiology Date/Time Source Procedure Growth Status 05/24/17 13:00 Nasal Nares Influenza Types A,B Antigen (SINDY) - Final Complete Intake and Output 05/25/17 05/26/17 19:00 07:00 Intake Total 1905 ml 785 ml Balance 1905 ml 785 ml Intake Oral 1600 ml 480 ml IV Total 305 ml 305 ml # Voids 5 3 # Bowel Movements 1 1 Assessment/Plan Assessment/Plan Assessment/Plan Assessment/Plan Problem List: (1) Bilateral lower leg cellulitis ICD Codes: L03.116 - Cellulitis of left lower limb; L03.115 - Cellulitis of right lower limb SNOMED: 694032317 (2) Venous stasis ICD Codes: I87.8 - Other specified disorders of veins SNOMED: 99630949 (3) lateral posterior left leg superficial skin breakdown ulcer (4) Acute DVT of LLE (5) Vaginal bleeding ICD Codes: N93.9 - Abnormal uterine and vaginal bleeding, unspecified SNOMED: 711174943, 413860829 (6) Acute blood loss anemia ICD Codes: D62 - Acute posthemorrhagic anemia SNOMED: 260286437 (7) Morbid obesity ICD Codes: E66.01 - Morbid (severe) obesity due to excess calories SNOMED: 070858029 (8) HTN (hypertension) ICD Codes: I10 - Essential (primary) hypertension SNOMED: 72808203 (9) Hypokalemia ICD Codes: E87.6 - Hypokalemia SNOMED: 08817630 Status: stable Assessment/Plan ID consulted, appreciate rec's Cont empiric vanco and cefepime for leg cellulitis (05/22-)---cont for 10 days on discharge. Home IV abx ordered Cont wound care General surgery consulted given L leg wound, appreciate assistance U/S BLE venous duplex reviewed. Hematology consulted given acute DVT despite being on Eliquis. Pt states has been on it for abt 6mo. 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 They will start sergice on 05/26/17 per CM DVT Prophylaxis: SCD, Eliquis Code Status: Full Hospital Classification Declaration: Based on this initial evaluation, and depending on the patient's clinical course, I anticipate that this patient will require hospitalization for 2-3 days for cellulitis, vaginal bleeding, and close respiratory/hemodynamic monitoring. Disposition: Once the patient is stable to leave the hospital, I anticipate the patient will likely be discharged to the following environment: home with HH vs SNF Discussed with patient/family, nursing staff, SW/CM, ID, hematology regarding clinical status, treatment course, and disposition planning. D/w ID re abx. D/w hematology re AC. D/w surgery re leg ulcer Time of note may not reflect time of encounter. Subjective Subjective Allergies: Coded Allergies: SULFA (SULFONAMIDE ANTIBIOTICS) (Unverified Allergy, Unknown, 05/02/15) allergy history per Dr. Jones Subjective No acute o/n events Cont on IV abx per ID Seen by gen surg and no acute surgical interventions warranted Pt doing well. Denies f/c, n/v, d/c, chest pain, SOB. BLE swelling/pain/redness improving Objective Objective Last 24 Hour Vital Signs Date Time Temp Pulse Resp B/P (MAP) Pulse Ox O2 Delivery O2 Flow Rate FiO2 05/25/17 16:05 97.9 88 21 121/69 97 Room Air 05/25/17 12:00 97.5 74 20 135/76 98 05/25/17 08:00 98.5 97 20 129/89 98 05/25/17 04:00 97.9 85 19 100/58 99 Room Air 05/25/17 00:00 99 Room Air 05/25/17 00:00 97.9 83 19 111/75 99 05/24/17 20:00 98.0 80 20 118/68 100 05/24/17 20:00 100 Room Air Intake and Output 05/24/17 05/25/17 19:00 07:00 Intake Total 1265 ml 305 ml Balance 1265 ml 305 ml Intake Oral 960 ml IV Total 305 ml 305 ml # Voids 4 2 # Bowel Movements 2 1 Laboratory Tests 05/25/17 07:00: Vancomycin Level Trough 13.5H Height (Feet): 6 Height (Inches): 1.00 Weight (Pounds): 455 Objective General: alert, cooperative, no distress, appears stated age, obese Head: normocephalic, without obvious abnormality, atraumatic Eyes: conjunctivae/corneas clear. PERRL, EOM's intact Throat: lips, mucosa, and tongue normal. MMM Neck: supple, symmetrical, trachea midline, and no JVD Lungs: clear to auscultation bilaterally Heart: regular rate and rhythm, S1, S2 normal, no murmur, click, rub or gallop Abdomen: soft, non-tender, non-distended, bowel sounds normal Extremities: extremities normal, atraumatic, no cyanosis or edema Pulses: 2+ and symmetric Skin: skin color, texture, turgor normal; LLE>RLE edema w/ mild erythema/warmth /TTP, +lateral posterior left distal leg with large area of superficial skin breakdown and ulceration likely venous stasis ulcer, no drainage Neurologic: grossly normal, no focal deficits Nikki Wyatt M.D. May 26, 2017 12:45
[2017-05-26] MEDS ORDERED: D5NS 1000ml IV ONE (13:28)
[2017-05-26] MEDS ORDERED: Tubing IV Secondary IV ONE ×2 (13:28)
[2017-05-26] MEDS ORDERED: NS 275ml ONE (13:28)
--- NOTE | 2017-05-27 04:24 | General Progress Note ---
Assessment/Plan Status: stable Assessment/Plan # DVT (on AC) of the left lower extremity popliteal vein -- could be related 2/ 2 inflammatory process and stasis, cellulitis making clot return, has been dealing with recurrent clots since 2011. Have discussed extensively with her the prior treatments she has received, which have included coumadin, eliquis, xarelto, lovenox --> given h/h stable, okay to proceed with anticoag, in the past did well on xarelto and only reason it was changed was because of drug interaction, therefore restart it --> if DVT progresses, other 2 options are to start a heparin gtt or to place ivc filter, though at this current time, no contraindiation for AC and does have a stable H/H # Anemia of iron deficiency, ferritin is very low --> continue on IV iron treatment, --> Monitor closely # B/l leg swelling/pain/redness. Pt notes symptoms for the past few days. She has a history of cellulitis of leg previously treated with antibiotics. # Vaginal bleed # Hypokalemia Subjective Date patient seen: May 26, 2017 Constitutional: Denies: no symptoms, chills, diaphoresis, fever, malaise, weakness, other HEENT: Denies: no symptoms, eye pain, blurred vision, tearing, double vision, ear pain, ear discharge, nose pain, nose congestion, throat pain, throat swelling, mouth pain, mouth swelling, other Cardiovascular: Denies: no symptoms, chest pain, edema, irregular heart rate, lightheadedness, palpitations, syncope, other Respiratory: Denies: no symptoms, cough, orthopnea, shortness of breath, SOB with excertion, SOB at rest, sputum, stridor, wheezing, other Gastrointestinal/Abdominal: Denies: no symptoms, abdomen distended, abdominal pain, black stools, tarry stools, blood in stool, constipated, diarrhea, difficulty swallowing, nausea, poor appetite, poor fluid intake, rectal bleeding , vomiting, other Genitourinary: Denies: no symptoms, burning, discharge, frequency, flank pain, hematuria, incontinence, pain, urgency, other Allergies: Coded Allergies: SULFA (SULFONAMIDE ANTIBIOTICS) (Unverified Allergy, Unknown, 05/02/15) allergy history per Dr. Jones Subjective Bleeding improved. Stable condition, pending discharge. Objective Last 24 Hour Vital Signs Date Time Temp Pulse Resp B/P (MAP) Pulse Ox O2 Delivery O2 Flow Rate FiO2 05/26/17 11:48 97.6 91 19 128/89 96 05/26/17 09:46 97.6 05/26/17 09:02 97.5 85 19 140/73 97 05/26/17 08:00 97.5 85 19 140/73 97 Intake and Output 05/26/17 05/27/17 19:00 07:00 Intake Total 560 ml Output Total 500 ml Balance 60 ml Intake Oral 560 ml Output Urine Total 500 ml # Bowel Movements 2 Height (Feet): 6 Height (Inches): 1.00 Weight (Pounds): 455 General Appearance: no apparent distress EENT: normal ENT inspection Neck: normal alignment Cardiovascular: normal rate, regular rhythm Respiratory/Chest: lungs clear Abdomen: soft Dinesh Rodríguez May 27, 2017 04:24
--- NOTE | 2017-05-28 08:35 | Discharge Summary ---
Discharge Summary Hospital Course Date of Admission May 22, 2017 at 18:26 Date of Discharge May 26, 2017 at 13:29 Admitting Diagnosis cellulitis, vaginal bleeding Reason for Hospitalization: BLE cellulitis, L ankle wound, vaginal bleeding HPI 56y/o female with pmh of morbid obesity, HTN, DVT (on AC) who presents with B/l leg swelling/pain/redness. Pt notes symptoms for the past few days. She has a history of cellulitis of leg previously treated with antibiotics. She also has a history of DVT and is currently on Eliquis. States she was switched from Xarelto to Eliquis recently given concern for bleeding. Pt states has been on Eliquis for abt 6 months. She c/o intermittent vaginal bleeding, most recently starting yesterday w/ spotting and passed a clot yesterday. Pt has seen pigs feet cleaner Dr. Zuniga before for this and has been worked up including pap smear a few months ago, unclear if had EMBx. Pt c/o subjective fevers, weakness. Denies chest pain, SOB, n/v/d/c, abd pain Consultations Infectious disease, General surgery Hospital Course Pt was admitted and continued on empiric antibiotics for BLE cellulitis. U/S BLE venous duplex showed acute DVT of LLE. Pt was seen by heme/onc who recommended continuing Eliquis for now. Pt also seen by general surgery given L ankle wound who recommended local wound care. Pt was set up with home IV antibiotics with Vanco and Cefepime for 10 days on discharge per ID. Pt's vaginal bleeding self resolved and Hgb remained stable. Pt was seen by PT/OT who recommended SNF but unfortunately pt had run out of Medicare SNF days; therefore, she was discharged home. Discharged physical exam: General: alert, cooperative, no distress, appears stated age Head: normocephalic, without obvious abnormality, atraumatic Eyes: conjunctivae/corneas clear. PERRL, EOM's intact Throat: lips, mucosa, and tongue normal. MMM Neck: supple, symmetrical, trachea midline, and no JVD Lungs: clear to auscultation bilaterally Heart: regular rate and rhythm, S1, S2 normal, no murmur, click, rub or gallop Abdomen: soft, non-tender, non-distended, bowel sounds normal; no masses or organomegaly Extremities: extremities normal, atraumatic, no cyanosis Pulses: 2+ and symmetric Skin: skin color, texture, turgor normal; LLE>RLE edema w/ mild erythema/ warmth/TTP, +lateral posterior left distal leg with large area of superficial skin breakdown and ulceration likely venous stasis ulcer, no drainage Neurologic: grossly normal, no focal deficits Discharge diagnoses: (1) Bilateral lower leg cellulitis ICD Codes: L03.116 - Cellulitis of left lower limb; L03.115 - Cellulitis of right lower limb SNOMED: 139730377 (2) Venous stasis ICD Codes: I87.8 - Other specified disorders of veins SNOMED: 23818200 (3) Lateral posterior left leg superficial skin breakdown ulcer, likely venous stasis ulcer (4) Acute DVT of LLE (5) Vaginal bleeding ICD Codes: N93.9 - Abnormal uterine and vaginal bleeding, unspecified SNOMED: 600151753, 448288425 (6) Acute blood loss anemia ICD Codes: D62 - Acute posthemorrhagic anemia SNOMED: 414255356 (7) Morbid obesity ICD Codes: E66.01 - Morbid (severe) obesity due to excess calories SNOMED: 895320160 (8) HTN (hypertension) ICD Codes: I10 - Essential (primary) hypertension SNOMED: 43797375 (9) Hypokalemia ICD Codes: E87.6 - Hypokalemia SNOMED: 58616411 Discharge Medications Continued Medications: Acetaminophen With Codeine (T#3) (Tylenol With Codeine #3 Tablet) Y Tab 1 TAB ORAL Q4H PRN for For Pain, TAB Apixaban (Eliquis) 5 Mg Tablet 5 MG PO BID, TAB Benazepril Hcl* (Benazepril Hcl*) 20 Mg Tablet 20 MG ORAL DAILY, TAB Docusate Sodium* (Colace*) 100 Mg Capsule 100 MG ORAL TWICE A DAY, CAP Febuxostat (Uloric) 40 Mg Tablet 40 MG ORAL DAILY, TAB 0 Refills Furosemide* (Lasix*) 40 Mg Tablet 40 MG ORAL DAILY, #30 TAB Hydrochlorothiazide* (Hydrochlorothiazide*) 25 Mg Tablet 25 MG ORAL DAILY, TAB Discontinued Medications: Ertapenem (Invanz) 1 Gm Vial 1 GM IM DAILY for 7 Days, VIAL Discharge Condition Upon Discharge: stable Discharge Disposition Patient was discharged to Home with Home Health(06) Discharge Diagnoses: Wijegunaratne,Kanishka M.D. May 28, 2017 08:35
--- NOTE | 2017-06-08 11:40 | Diagnostic Imaging Report ---
APPROVED REPORT CPT Code: 99745 Present Symptoms Lower Extremity Pain: RIGHT LEG: Venous imaging reveals a patent deep venous system. There is no evidence of thrombus within the femoral, popliteal or tibial segments. The greater saphenous vein is also within normal limits. Doppler indicates normal spontaneous flow within these segments. LEFT LEG: Venous imaging reveals acute thrombus in the distal popliteal vein and proximal posterior tibial veins. Imaging reveals patency of the common femoral, superficial femoral, proximal and mid popliteal veins. The greater saphenous vein is within normal limits. The peroneal and anterior tibial veins were not visualized. RN was informed of abnormal results at 11:10 hrs.
--- NOTE | 2017-06-10 20:36 | Diagnostic Imaging Report ---
APPROVED REPORT CPT Code: 22266 Present Symptoms Lower Extremity Pain: Comments: R/O DVT. Past History Prior Lower Extremity Venous DuplexDate : 05/23/2017 Comments :Acute DVT left popliteal vein and posterior tibial vein. Technically difficult, limited study due to vessel depth (mid-distal thigh) and bandages. RIGHT LEG: Venous imaging reveals a patent deep venous system. There is no evidence of thrombus within the femoral, popliteal or tibial segments. The greater saphenous vein is also within normal limits. Doppler indicates normal spontaneous flow within these segments. The distal superficial femoral vein and the peroneal veins were not well visualized. LEFT LEG: Venous imaging reveals acute, occlusive thrombus in the popliteal vein and posterior tibial veins. Imaging reveals patency of the common femoral and superficial femoral veins. The greater saphenous vein is within normal limits. The mid to distal superficial femoral veins were not well visualized. The calf veins were not well visualized due to bandages. RN was informed at 23:30 hrs.
== END 2017-05-26 13:29 | disposition home health service (06) | DRG 603 ==
LOC: EMR 16:43 → 4E 18:26 → EDBEDREQ 22:22 → EMR 23:40
PROC: 05H933Z Insertion of Infusion Device into Right Brachial Vein, Percutaneous Approach (ICD-10-PCS; principal; 2017-05-23)
DX: L03.116 Cellulitis of left lower limb (principal); I82.432 Acute embolism and thrombosis of left popliteal vein; Z68.44 Body mass index [BMI] 60.0-69.9, adult; L97.821 Non-pressure chronic ulcer of other part of left lower leg limited to breakdown of skin; D62 Acute posthemorrhagic anemia; E66.01 Morbid (severe) obesity due to excess calories; I10 Essential (primary) hypertension; L03.115 Cellulitis of right lower limb; I87.2 Venous insufficiency (chronic) (peripheral); N93.9 Abnormal uterine and vaginal bleeding, unspecified; Z79.01 Long term (current) use of anticoagulants; I87.8 Other specified disorders of veins; E87.6 Hypokalemia; Z88.2 Allergy status to sulfonamides; Z86.718 Personal history of other venous thrombosis and embolism
CPT/HCPCS: 36415; 36569; 76856; 76937; 80048; 80053; 80202; 82270; 82607; 82728; 83540; 83550; 83605; 83735; 83880; 84443; 85025; 85384; 85610; 85730; 86710; 86850; 86900; 86901; 87040; 87070; 87181; 87205; 93970; 99285

== ENCOUNTER 2017-06-27 15:13 | Outpatient (CLI) | payer MEDICARE, OTHER ==
[2017-06-27 15:52] LABS: BASOPHILS % (AUTO) 0.7 % (0.0-2.0); EOSINOPHILS % (AUTO) 1.3 % (0.0-3.0); HEMATOCRIT 35.4 % (37.0-47.0); HEMOGLOBIN 10.9 G/DL (12.0-16.0); LYMPHOCYTES % (AUTO) 17.6 % (20.0-45.0); MEAN CORPUSCULAR VOLUME 81 FL (80-99); MONOCYTES % (AUTO) 6.6 % (1.0-10.0); NEUTROPHILS % (AUTO) 73.8 % (45.0-75.0); PLATELET COUNT 326 K/UL (150-450); RED BLOOD COUNT 4.39 M/UL (4.20-5.40); RED CELL DISTRIBUTION WIDTH 15.1 % (11.6-14.8); WHITE BLOOD COUNT 11.9 K/UL (4.8-10.8)
[2017-06-27 16:08] LABS: ALANINE AMINOTRANSFERASE 19 U/L (12-78); ALBUMIN/GLOBULIN RATIO 0.6 (1.0-2.7); ALKALINE PHOSPHATASE 74 U/L (46-116); ANION GAP 8 mmol/L (5-15); ASPARTATE AMINO TRANSFERASE 18 U/L (15-37); BILIRUBIN,TOTAL 0.2 MG/DL (0.2-1.0); BLOOD UREA NITROGEN 13 mg/dL (7-18); CALCIUM 8.9 MG/DL (8.5-10.1); CARBON DIOXIDE 28 MMOL/L (21-32); CHLORIDE 101 MMOL/L (98-107); CREATININE 0.9 MG/DL (0.55-1.30); POTASSIUM 3.1 MMOL/L (3.5-5.1); SODIUM 137 MMOL/L (136-145)
== END 2017-06-27 17:13 | disposition home or self-care (01) ==
LOC: LAB 15:13
DX: I82.409 Acute embolism and thrombosis of unspecified deep veins of unspecified lower extremity (principal); L03.116 Cellulitis of left lower limb
CPT/HCPCS: 36415; 80053; 82043; 83036; 85025

== ENCOUNTER 2017-07-18 17:55 | Emergency (ER) | payer MEDICARE, OTHER ==
[~2017-07-18] VITALS: Ht 185.4 cm; Wt 197.3 kg
[2017-07-18 18:14] VITALS: BP 107/62
[2017-07-18] MEDS ORDERED: Morphine Sulfate 10mg/ml Inj IVP ONE (18:30)
[2017-07-18 19:54] LABS: BASOPHILS % (AUTO) 0.8 % (0.0-2.0); EOSINOPHILS % (AUTO) 0.9 % (0.0-3.0); HEMATOCRIT 35.5 % (37.0-47.0); LYMPHOCYTES % (AUTO) 13.5 % (20.0-45.0); MEAN CORPUSCULAR VOLUME 79 FL (80-99); MONOCYTES % (AUTO) 5.2 % (1.0-10.0); NEUTROPHILS % (AUTO) 79.6 % (45.0-75.0); PLATELET COUNT 317 K/UL (150-450); RED BLOOD COUNT 4.47 M/UL (4.20-5.40); RED CELL DISTRIBUTION WIDTH 14.9 % (11.6-14.8); WHITE BLOOD COUNT 12.6 K/UL (4.8-10.8)
[2017-07-18 20:07] LABS: ANION GAP 3 mmol/L (5-15); BLOOD UREA NITROGEN 14 mg/dL (7-18); CALCIUM 9.2 MG/DL (8.5-10.1); CARBON DIOXIDE 33 MMOL/L (21-32); CHLORIDE 100 MMOL/L (98-107); CREATININE 0.8 MG/DL (0.55-1.30); POTASSIUM 3.7 MMOL/L (3.5-5.1); SODIUM 136 MMOL/L (136-145)
[2017-07-18 20:12] LABS: ALANINE AMINOTRANSFERASE 17 U/L (12-78); ALBUMIN 2.9 G/DL (3.4-5.0); ALBUMIN/GLOBULIN RATIO 0.6 (1.0-2.7); ALKALINE PHOSPHATASE 71 U/L (46-116); ASPARTATE AMINO TRANSFERASE 19 U/L (15-37); BILIRUBIN,TOTAL 0.2 MG/DL (0.2-1.0)
[2017-07-18 20:13] LABS: APPEARANCE,URINE CLEAR; BILIRUBIN, URINE NEGATIVE (NEGATIVE); COLOR,URINE PALE YELLOW; GLUCOSE, URINE (UA) NEGATIVE (NEGATIVE); KETONES,URINE NEGATIVE (NEGATIVE); LEUKOCYTE ESTERASE ,URINE NEGATIVE (NEGATIVE); NITRITE,URINE NEGATIVE (NEGATIVE); PH,URINE 8 (4.5-8.0); PROTEIN,URINE NEGATIVE (NEGATIVE); UROBILINOGEN,URINE NORMAL MG/DL (0.0-1.0)
--- NOTE | 2017-07-18 20:38 | Emergency Room Report ---
History of Present Illness General Chief Complaint: Abdominal Pain Source: Patient, Medical Record (Debbie Lee) Present Illness HPI 56-year-old female presents to the emergency department complaining of 9 out of 10 in severity right-sided lower abdominal pain that has been progressive 4 days. Patient states that she was seen by her primary care doctor last week and after he was pushing on her stomach her pain worsened and has not gotten better since. Patient was instructed by her primary care provider to be evaluated by the emergency department if her symptoms are not resolving. Patient denies fevers, chills, diarrhea, nausea or vomiting. Patient reports constipation and states that she takes pain medications regularly that usually causes her to be on the constipated side. Patient also has history of recent DVT and is currently taking blood thinning medication. She denies trauma to the abdomen or fall. pt. denies melena or blood in the stool. Denies dysuria, or urinary frequency. Pt. reports one episode of hematuria. Denies CP, Palpitations , LOC, AMS, dizziness, Changes in Vision, Sensation, paresthesias, or a sudden severe headache. (Debbie Lee) Allergies: Coded Allergies: SULFA (SULFONAMIDE ANTIBIOTICS) (Unverified Allergy, Unknown, 05/02/15) allergy history per Dr. Campbell Patient History Past Medical History: see triage record, DM, HTN, other - DVT Past Surgical History: none Pertinent Family History: none Now: No Reviewed Nursing Documentation: PMH: Agreed, PSxH: Agreed (Debbie Lee) Nursing Documentation-PMH Past Medical History: No History, Except For Hx Cardiac Problems: Yes - bilateral leg blood clots x 2 yr Hx Hypertension: Yes Hx Asthma: Yes Hx Cancer: No - - Hx Gastrointestinal Problems: Yes - GI bleeding Hx Neurological Problems: No Hx Cerebrovascular Accident: No - CELLULITIS LOWER ABD AND BI-LAT LEGS (Debbie Lee PKillianAKillian) Review of Systems All Other Systems: negative except mentioned in HPI (Debbie Lee) Physical Exam Vital Signs Date Time Temp Pulse Resp B/P (MAP) Pulse Ox O2 Delivery O2 Flow Rate FiO2 07/18/17 18:04 97.7 88 18 107/62 98 Room Air 97.7 Sp02 EP Interpretation: reviewed, normal General Appearance: no apparent distress, alert, GCS 15, non-toxic, obese Head: normocephalic, atraumatic ENT: hearing grossly normal, normal voice Neck: full range of motion Respiratory: chest non-tender, lungs clear, normal breath sounds, no respiratory distress, no wheezing, speaking full sentences Cardiovascular #1: regular rate, rhythm, no edema Gastrointestinal: normal bowel sounds, soft, no guarding, tenderness - TTP to the RLQ, other - Exam is limited due to excessive body habitus. Rectal: deferred Genitourinary: normal inspection Musculoskeletal: back normal, normal range of motion, non-tender Neurologic: alert, oriented x3, responsive, motor strength/tone normal, sensory intact, speech normal, grossly normal Psychiatric: judgement/insight normal Skin: normal color, no rash, warm/dry, well hydrated (Debbie LeeAKillian) Medical Decision Making PA Attestation Dr. Langford is my supervising Physician whom patient management has been discussed with. (Debbie Lee PMariusz) Diagnostic Impression: Primary Impression: Abdominal pain Qualified Codes: R10.31 - Right lower quadrant pain ER Course 56-year-old female presents to the emergency department complaining of 9 out of 10 in severity right-sided lower abdominal pain that has been progressive 4 days. Patient states that she was seen by her primary care doctor last week and after he was pushing on her stomach her pain worsened and has not gotten better since. Patient was instructed by her primary care provider to be evaluated by the emergency department if her symptoms are not resolving. Patient denies fevers, chills, diarrhea, nausea or vomiting. Patient reports constipation and states that she takes pain medications regularly that usually causes her to be on the constipated side. Patient also has history of recent DVT and is currently taking blood thinning medication. She denies trauma to the abdomen or fall. pt. denies melena or blood in the stool. Denies dysuria, or urinary frequency. Pt. reports one episode of hematuria. Denies CP, Palpitations , LOC, AMS, dizziness, Changes in Vision, Sensation, paresthesias, or a sudden severe headache. Ddx considered but are not limited to Diverticulitis, acute appy, diarrhea,UC, PUD, GE, pancreatitis, gallstone,UTI, peritonitis, bowel ischemia, or GI bleed just to name a few. Vital signs: are WNL, pt. is afebrile H&PE are most consistent with RLQ Abdominal pain in a morbidly obese pt. with comorbidities. ORDERS: -CBC: WBC's elevated 12.6 -CMP,: Co2 33, anion gap of 3 - lipase: unremarkable - UA: unremarkable -INR: 1, PTT : 10.1 seconds -EK BPM NSR. - CT ABDOMEN AND PELVIS WITH IV AND ORAL CONTRAST-- Pending. ED INTERVENTIONS: - Morphine 8mg IV -Pepcid IV DISPOSITION: pt. pending CT Imaging. pt. exceeds the weight limitations for CT Machine at [facility] [place]. Imaging at an alternate facility with transport is being facilitated. Labs Test 07/18/17 19:25 White Blood Count 12.6 K/UL (4.8-10.8) Red Blood Count 4.47 M/UL (4.20-5.40) Hemoglobin 11.0 G/DL (12.0-16.0) Hematocrit 35.5 % (37.0-47.0) Mean Corpuscular Volume 79 FL (80-99) Mean Corpuscular Hemoglobin 24.7 PG (27.0-31.0) Mean Corpuscular Hemoglobin Concent 31.0 G/DL (32.0-36.0) Red Cell Distribution Width 14.9 % (11.6-14.8) Platelet Count 317 K/UL (150-450) Mean Platelet Volume 6.9 FL (6.5-10.1) Neutrophils (%) (Auto) 79.6 % (45.0-75.0) Lymphocytes (%) (Auto) 13.5 % (20.0-45.0) Monocytes (%) (Auto) 5.2 % (1.0-10.0) Eosinophils (%) (Auto) 0.9 % (0.0-3.0) Basophils (%) (Auto) 0.8 % (0.0-2.0) Prothrombin Time 10.1 SEC (9.30-11.50) Prothromb Time International Ratio 1.0 (0.9-1.1) Activated Partial Thromboplast Time 25 SEC (23-33) Urine Color Pale yellow Urine Appearance Clear Urine pH 8 (4.5-8.0) Urine Specific [place] 1.010 (1.005-1.035) Urine Protein Negative (NEGATIVE) Urine Glucose (UA) Negative (NEGATIVE) Urine Ketones Negative (NEGATIVE) Urine Occult Blood Negative (NEGATIVE) Urine Nitrite Negative (NEGATIVE) Urine Bilirubin Negative (NEGATIVE) Urine Urobilinogen Normal MG/DL (0.0-1.0) Urine Leukocyte Esterase Negative (NEGATIVE) Sodium Level 136 MMOL/L (136-145) Potassium Level 3.7 MMOL/L (3.5-5.1) Chloride Level 100 MMOL/L (98-107) Carbon Dioxide Level 33 MMOL/L (21-32) Anion Gap 3 mmol/L (5-15) Blood Urea Nitrogen 14 mg/dL (7-18) Creatinine 0.8 MG/DL (0.55-1.30) Estimat Glomerular Filtration Rate > 60 mL/min (>60) Glucose Level 83 MG/DL (74-106) Calcium Level 9.2 MG/DL (8.5-10.1) Total Bilirubin 0.2 MG/DL (0.2-1.0) Aspartate Amino Transf (AST/SGOT) 19 U/L (15-37) Alanine Aminotransferase (ALT/SGPT) 17 U/L (12-78) Alkaline Phosphatase 71 U/L (46-116) Troponin I 0.000 ng/mL (0.000-0.056) Total Protein 7.8 G/DL (6.4-8.2) Albumin 2.9 G/DL (3.4-5.0) Globulin 4.9 g/dL Albumin/Globulin Ratio 0.6 (1.0-2.7) Lipase 212 U/L (73-393) (Debbie Lee.A.) ER Course This patient was pending transfer to another hospital where she could obtain a CT scan of her abdomen to rule out appendicitis. The patient is morbidly obese over 400 pounds and we could not scan this patient at our facility. She was accepted for transfer and I had spoken with the accepting physician. However, the patient decided to leave AGAINST MEDICAL ADVICE because the transfer ambulance would not take her motorized wheelchair. I did educate the patient that I could not rule out appendicitis. She indicated understanding. She was stable and comfortable when she left AGAINST MEDICAL ADVICE. (ASHISH LANGFORD D.O.) EKG Diagnostic Results EP Interpretation: Dr. Langford Rate: normal - 84 Bpm Rhythm: NSR ST Segments: no acute changes ASA given to the pt in ED: No PA Scribe Text - EK BPM NSR - no acute ST changes reviewed by Dr. Langford, this interpretation was scribed by KRISTOPHER Lee (Debbie Lee.Xavier) Last Vital Signs Date Time Temp Pulse Resp B/P (MAP) Pulse Ox O2 Delivery O2 Flow Rate FiO2 07/18/17 19:41 97.7 07/18/17 18:14 18 107/62 98 Room Air 07/18/17 18:04 88 (Debbie Lee) Signed Out To: Dr. Langford (Debbie Lee PMariusz) Referrals: DENISE CAMPBELL (PCP) Debbie Lee Jul 18, 2017 20:38 ASHISH LANGFORD D.O. Jul 18, 2017 22:24
[2017-07-18 21:23] VITALS: BP 117/65
[2017-07-18 21:40] VITALS: BP 117/65
--- NOTE | 2017-07-22 16:21 | Cardiology Report ---
APPROVED REPORT EKG Measurement Heart [id number] Normal sinus rhythm Low voltage QRS Borderline ECG
== END 2017-07-18 21:40 | disposition left against medical advice (07) ==
LOC: EMR 18:21
DX: R10.31 Right lower quadrant pain (principal); I10 Essential (primary) hypertension; J45.909 Unspecified asthma, uncomplicated; Z88.2 Allergy status to sulfonamides
CPT/HCPCS: 36415; 80053; 81003; 83690; 84484; 85025; 85610; 85730; 93005; 96374; 96375; 99284; J2270; S0028

== ENCOUNTER 2017-08-05 22:31 | Emergency (ER) | payer MEDICARE, OTHER ==
[~2017-08-05] VITALS: Ht 185.4 cm; Wt 194.6 kg
[2017-08-05] MEDS ORDERED: SAXENDA3 MG/0.5 M SQ (22:58)
[2017-08-05] MEDS ORDERED: VICODIN ES 7.51 EAC1 ORAL (22:58)
[2017-08-05] MEDS ORDERED: KEFLEX500 MG ORAL (23:12)
[2017-08-05 23:15] VITALS: BP 105/67
[2017-08-05] MEDS ORDERED: Lidocaine 1% MPF 10mg/ml 5ml INJ ONE (23:30)
--- NOTE | 2017-08-05 23:36 | Emergency Room Report ---
History of Present Illness General Chief Complaint: General Complaint Source: Patient, Medical Record Present Illness HPI 56-year-old female, history of a chronic left ankle wound for several months, presenting with pain, purulent drainage. States that she last took antibiotics more than one month ago. States that she gets daily wound care, states that her wound cannot seem to ever get closed. Denies any fever any chills. Allergies: Coded Allergies: SULFA (SULFONAMIDE ANTIBIOTICS) (Unverified Allergy, Unknown, 05/02/15) allergy history per Dr. Jones Patient History Past Medical History: see triage record Past Surgical History: none Pertinent Family History: none Last Menstrual Period: 07/04/17 Now: No Reviewed Nursing Documentation: PMH: Agreed; PSxH: Agreed Nursing Documentation-PMH Past Medical History: No History, Except For Hx Cardiac Problems: Yes - bilateral leg blood clots x 2 yr Hx Hypertension: Yes Hx Asthma: Yes Hx Cancer: No - - Hx Gastrointestinal Problems: Yes - GI bleeding Hx Neurological Problems: No Hx Cerebrovascular Accident: No - CELLULITIS LOWER ABD AND BI-LAT LEGS Review of Systems All Other Systems: negative except mentioned in HPI Physical Exam Vital Signs Date Time Temp Pulse Resp B/P (MAP) Pulse Ox O2 Delivery O2 Flow Rate FiO2 08/05/17 22:49 98.2 88 18 105/67 95 Room Air 98.2 Sp02 EP Interpretation: reviewed, normal General Appearance: alert, GCS 15, non-toxic, mild distress Head: normocephalic, atraumatic Eyes: bilateral eye normal inspection, bilateral eye PERRL, bilateral eye EOMI ENT: normal ENT inspection, normal pharynx, normal voice, moist mucus membranes Neck: normal inspection, full range of motion, supple Respiratory: normal inspection, lungs clear, normal breath sounds, no respiratory distress, no retraction, no wheezing, speaking full sentences, chest symmetrical Cardiovascular #1: normal inspection, regular rate, rhythm, no edema, normal capillary refill Cardiovascular #2: 2+ radial (R), 2+ radial (L) Gastrointestinal: normal inspection, non tender, soft, non-distended, no guarding Musculoskeletal: other - Bilateral extremities with chronic edema, left lateral malleolus with 2 cm chronic wound, no purulent drainage, no erythema, tender to palpation Neurologic: normal inspection, alert, oriented x3, responsive, motor strength/ tone normal, sensory intact, normal gait, speech normal Psychiatric: normal inspection, judgement/insight normal, memory normal Skin: normal inspection, normal color, no rash, warm/dry, well hydrated, normal turgor Medical Decision Making Diagnostic Impression: Primary Impression: Chronic wound of extremity ER Course 56-year-old female with chronic left lower extremity wound DDX: Chronic wound with dehiscence, patient states that she had purulent drainage however no purulent drainage at this time. Does not appear severely infected. Plan: Will give first dose antibiotics here. Pain control ER course: Patient has remained stable during ED stay. Wound was cleaned, antibiotics given Disposition: Patient is to be discharged to home. Prescriptions given are Keflex Patient is instructed to follow up with their primary care doctor within 5 days. Patient is instructed to follow up with wound care nurse Strict return precautions discussed with patient such as fever, chills, worsening/severe pain, rapid spread of rash, nausea, vomiting, which may indicate severe illness. Patient verbalizes understanding and agrees with plan. Please note that this Emergency Department Report was dictated using [employer] teller technology software, occasionally this can lead to erroneous entry secondary to interpretation by the dictation equipment Last Vital Signs Date Time Temp Pulse Resp B/P (MAP) Pulse Ox O2 Delivery O2 Flow Rate FiO2 08/05/17 22:49 98.2 88 18 105/67 95 Room Air 98.2 Disposition: HOME, SELF-CARE Condition: Stable Scripts Cephalexin* (KEFLEX*) 500 Mg Capsule 500 MG ORAL Q6H, #28 CAP 0 Refills Prov: Katy Gonsales M.D. 08/05/17 Referrals: LILIANA JONES (PCP) Patient Instructions: Wound Care Additional Instructions: Please follow-up with your doctor in 1 week. Please come back to the emergency room if you are experiencing fever chills increased purulent drainage from your wound, rapid spread of rash, or inability to take your medicine Please see your wound care nurse daily Katy Gonsales M.D. Aug 05, 2017 23:36
[2017-08-05] MEDS: Norco 5mg/325mg tab ORAL ONE ×2 (23:48→23:58)
[2017-08-06 00:02] VITALS: BP 105/67
== END 2017-08-06 00:01 | disposition home or self-care (01) ==
LOC: EMR 23:00
DX: S91.002D Unspecified open wound, left ankle, subsequent encounter (principal); X58.XXXD Exposure to other specified factors, subsequent encounter; I10 Essential (primary) hypertension; J45.909 Unspecified asthma, uncomplicated; Z88.2 Allergy status to sulfonamides
CPT/HCPCS: 96372; 99283

== ENCOUNTER 2017-09-05 16:56 | Outpatient (CLI) | payer MEDICARE, OTHER ==
[~2017-09-05 16:56] MED LIST changes: +KEFLEX500 MG ORAL; +SAXENDA3 MG/0.5 M SQ; +VICODIN ES 7.51 EAC1 ORAL
[2017-09-05 17:43] LABS: BASOPHILS % (AUTO) 1.7 % (0.0-2.0); EOSINOPHILS % (AUTO) 0.8 % (0.0-3.0); HEMATOCRIT 34.9 % (37.0-47.0); HEMOGLOBIN 10.9 G/DL (12.0-16.0); LYMPHOCYTES % (AUTO) 12.2 % (20.0-45.0); MEAN CORPUSCULAR VOLUME 80 FL (80-99); MONOCYTES % (AUTO) 4.7 % (1.0-10.0); NEUTROPHILS % (AUTO) 80.5 % (45.0-75.0); PLATELET COUNT 266 K/UL (150-450); RED BLOOD COUNT 4.37 M/UL (4.20-5.40); RED CELL DISTRIBUTION WIDTH 14.9 % (11.6-14.8); WHITE BLOOD COUNT 13.6 K/UL (4.8-10.8)
[2017-09-05 17:49] LABS: APPEARANCE,URINE CLEAR; BILIRUBIN, URINE NEGATIVE (NEGATIVE); GLUCOSE, URINE (UA) NEGATIVE (NEGATIVE); KETONES,URINE 1+ (NEGATIVE); LEUKOCYTE ESTERASE ,URINE 2+ (NEGATIVE); NITRITE,URINE NEGATIVE (NEGATIVE); PH,URINE 6 (4.5-8.0); PROTEIN,URINE 1+ (NEGATIVE); UROBILINOGEN,URINE 1 MG/DL (0.0-1.0)
[2017-09-05 17:50] LABS: COLOR,URINE YELLOW
[2017-09-05 17:57] LABS: ALANINE AMINOTRANSFERASE 20 U/L (12-78); ALBUMIN 2.8 G/DL (3.4-5.0); ALBUMIN/GLOBULIN RATIO 0.5 (1.0-2.7); ALKALINE PHOSPHATASE 66 U/L (46-116); ANION GAP 12 mmol/L (5-15); ASPARTATE AMINO TRANSFERASE 28 U/L (15-37); BILIRUBIN,TOTAL 0.3 MG/DL (0.2-1.0); BLOOD UREA NITROGEN 15 mg/dL (7-18); CALCIUM 8.6 MG/DL (8.5-10.1); CARBON DIOXIDE 20 MMOL/L (21-32); CHLORIDE 100 MMOL/L (98-107); CHOLESTEROL 127 MG/DL (< 200); CREATININE 0.9 MG/DL (0.55-1.30); HDL CHOLESTEROL 62 MG/DL (40-60); POTASSIUM 4.1 MMOL/L (3.5-5.1); SODIUM 132 MMOL/L (136-145); TRIGLYCERIDES 58 MG/DL (30-150)
== END 2017-09-05 18:56 | disposition home or self-care (01) ==
LOC: LAB 16:56
DX: E66.9 Obesity, unspecified (principal)
CPT/HCPCS: 36415; 80053; 80061; 81001; 83036; 85025

== ENCOUNTER 2017-11-05 12:36 | Outpatient (CLI) | payer MEDICARE, OTHER ==
[2017-11-05 13:51] LABS: APPEARANCE,URINE CLEAR; BILIRUBIN, URINE NEGATIVE (NEGATIVE); GLUCOSE, URINE (UA) NEGATIVE (NEGATIVE); KETONES,URINE NEGATIVE (NEGATIVE); LEUKOCYTE ESTERASE ,URINE 1+ (NEGATIVE); NITRITE,URINE NEGATIVE (NEGATIVE); PH,URINE 6.5 (4.5-8.0); PROTEIN,URINE NEGATIVE (NEGATIVE); UROBILINOGEN,URINE NORMAL MG/DL (0.0-1.0)
[2017-11-05 13:57] LABS: BASOPHILS % (AUTO) 0.9 % (0.0-2.0); EOSINOPHILS % (AUTO) 1.3 % (0.0-3.0); HEMOGLOBIN 11.3 G/DL (12.0-16.0); LYMPHOCYTES % (AUTO) 16.2 % (20.0-45.0); MEAN CORPUSCULAR VOLUME 81 FL (80-99); MONOCYTES % (AUTO) 5.3 % (1.0-10.0); NEUTROPHILS % (AUTO) 76.3 % (45.0-75.0); PLATELET COUNT 300 K/UL (150-450); RED BLOOD COUNT 4.58 M/UL (4.20-5.40); RED CELL DISTRIBUTION WIDTH 14.7 % (11.6-14.8)
[2017-11-05 13:59] LABS: COLOR,URINE YELLOW
[2017-11-05 14:13] LABS: ALANINE AMINOTRANSFERASE 19 U/L (12-78); ALBUMIN/GLOBULIN RATIO 0.7 (1.0-2.7); ALKALINE PHOSPHATASE 77 U/L (46-116); ANION GAP 5 mmol/L (5-15); ASPARTATE AMINO TRANSFERASE 19 U/L (15-37); BILIRUBIN,TOTAL 0.2 MG/DL (0.2-1.0); BLOOD UREA NITROGEN 9 mg/dL (7-18); CALCIUM 8.6 MG/DL (8.5-10.1); CARBON DIOXIDE 32 MMOL/L (21-32); CHLORIDE 102 MMOL/L (98-107); CREATININE 0.8 MG/DL (0.55-1.30); SODIUM 139 MMOL/L (136-145)
== END 2017-11-05 14:36 | disposition home or self-care (01) ==
LOC: LAB 12:36
DX: I82.409 Acute embolism and thrombosis of unspecified deep veins of unspecified lower extremity (principal); E66.01 Morbid (severe) obesity due to excess calories
CPT/HCPCS: 36415; 80053; 81001; 83036; 85025

== ENCOUNTER 2018-03-01 14:10 | Outpatient (CLI) | payer MEDICARE, OTHER ==
[2018-03-01 14:49] LABS: BASOPHILS % (AUTO) 0.8 % (0.0-2.0); EOSINOPHILS % (AUTO) 1.3 % (0.0-3.0); HEMATOCRIT 36.5 % (37.0-47.0); HEMOGLOBIN 11.4 G/DL (12.0-16.0); LYMPHOCYTES % (AUTO) 16.7 % (20.0-45.0); MEAN CORPUSCULAR VOLUME 80 FL (80-99); MONOCYTES % (AUTO) 6.3 % (1.0-10.0); PLATELET COUNT 323 K/UL (150-450); RED BLOOD COUNT 4.58 M/UL (4.20-5.40); RED CELL DISTRIBUTION WIDTH 13.6 % (11.6-14.8); WHITE BLOOD COUNT 12.3 K/UL (4.8-10.8)
[2018-03-01 14:56] LABS: APPEARANCE,URINE SLIGHTLY CLOUDY; BILIRUBIN, URINE NEGATIVE (NEGATIVE); GLUCOSE, URINE (UA) NEGATIVE (NEGATIVE); KETONES,URINE NEGATIVE (NEGATIVE); LEUKOCYTE ESTERASE ,URINE 1+ (NEGATIVE); NITRITE,URINE NEGATIVE (NEGATIVE); PH,URINE 6 (4.5-8.0); PROTEIN,URINE 1+ (NEGATIVE); UROBILINOGEN,URINE 1 MG/DL (0.0-1.0)
[2018-03-01 14:59] LABS: COLOR,URINE YELLOW
[2018-03-01 15:18] LABS: ALANINE AMINOTRANSFERASE 20 U/L (12-78); ALBUMIN 2.9 G/DL (3.4-5.0); ALBUMIN/GLOBULIN RATIO 0.5 (1.0-2.7); ALKALINE PHOSPHATASE 85 U/L (46-116); ANION GAP 11 mmol/L (5-15); ASPARTATE AMINO TRANSFERASE 17 U/L (15-37); BILIRUBIN,TOTAL 0.2 MG/DL (0.2-1.0); BLOOD UREA NITROGEN 14 mg/dL (7-18); CALCIUM 8.9 MG/DL (8.5-10.1); CARBON DIOXIDE 26 MMOL/L (21-32); CHLORIDE 100 MMOL/L (98-107); CREATININE 0.8 MG/DL (0.55-1.30); POTASSIUM 3.6 MMOL/L (3.5-5.1); SODIUM 137 MMOL/L (136-145)
== END 2018-03-01 16:10 | disposition home or self-care (01) ==
LOC: LAB 14:10 → EDSTATUS 03-05 10:59
DX: D68.9 Coagulation defect, unspecified (principal); E66.9 Obesity, unspecified; I82.509 Chronic embolism and thrombosis of unspecified deep veins of unspecified lower extremity
CPT/HCPCS: 36415; 80053; 81001; 83036; 84443; 85025; 85651; 86140

== ENCOUNTER → 2018-04-29 | Outpatient (CLI) | payer MEDICARE, OTHER ==
[2018-04-29 17:58] LABS: APPEARANCE,URINE CLEAR; BILIRUBIN, URINE NEGATIVE (NEGATIVE); GLUCOSE, URINE (UA) NEGATIVE (NEGATIVE); KETONES,URINE NEGATIVE (NEGATIVE); LEUKOCYTE ESTERASE ,URINE 1+ (NEGATIVE); NITRITE,URINE NEGATIVE (NEGATIVE); PH,URINE 6 (4.5-8.0); PROTEIN,URINE 1+ (NEGATIVE); UROBILINOGEN,URINE 1 MG/DL (0.0-1.0)
[2018-04-29 17:59] LABS: COLOR,URINE YELLOW
[2018-04-29 18:02] LABS: BASOPHILS % (AUTO) 0.7 % (0.0-2.0); EOSINOPHILS % (AUTO) 1.2 % (0.0-3.0); HEMATOCRIT 39.6 % (37.0-47.0); HEMOGLOBIN 12.2 G/DL (12.0-16.0); LYMPHOCYTES % (AUTO) 16.6 % (20.0-45.0); MEAN CORPUSCULAR VOLUME 79 FL (80-99); MONOCYTES % (AUTO) 6.2 % (1.0-10.0); NEUTROPHILS % (AUTO) 75.4 % (45.0-75.0); PLATELET COUNT 355 K/UL (150-450); RED BLOOD COUNT 4.98 M/UL (4.20-5.40); RED CELL DISTRIBUTION WIDTH 13.9 % (11.6-14.8)
[2018-04-29 18:22] LABS: ALANINE AMINOTRANSFERASE 18 U/L (12-78); ALBUMIN 3.4 G/DL (3.4-5.0); ALBUMIN/GLOBULIN RATIO 0.6 (1.0-2.7); ALKALINE PHOSPHATASE 95 U/L (46-116); ANION GAP 12 mmol/L (5-15); ASPARTATE AMINO TRANSFERASE 14 U/L (15-37); BILIRUBIN,TOTAL 0.2 MG/DL (0.2-1.0); BLOOD UREA NITROGEN 17 mg/dL (7-18); CALCIUM 9.2 MG/DL (8.5-10.1); CARBON DIOXIDE 28 MMOL/L (21-32); CHLORIDE 99 MMOL/L (98-107); POTASSIUM 3.5 MMOL/L (3.5-5.1); SODIUM 139 MMOL/L (136-145)
== END | disposition home or self-care (01) ==
LOC: LAB 16:44
DX: E66.9 Obesity, unspecified (principal); I10 Essential (primary) hypertension
CPT/HCPCS: 36415; 80053; 81001; 83036; 85025

== ENCOUNTER 2018-07-31 20:07 | Inpatient (IN) | payer MEDICARE, OTHER ==
[~2018-07-31] VITALS: Ht 186.7 cm; Wt 188.7 kg
[2018-07-31 20:41] VITALS: BP 122/62
--- NOTE | 2018-07-31 20:44 | NUR ---
ED Nurse Note: pt walked in c/o flu like sx for four days, cough, nasal congestion, earache, sorethroat, generalized bodyache and fever, pt currently afebrile, skin warm and dry, resp even and unlabored on RA, -n/v/d, on wheelchair but states she can ambulate w/ walker&cane. noted dry nonproductive cough and mild swelling in throat, airway intact, will cont monitor.
--- NOTE | 2018-07-31 21:29 | Emergency Room Report ---
History of Present Illness General Chief Complaint: Flu Like Symptoms Present Illness HPI Patient is a 57-year-old female presented after increased cough and congestion for the past 4 days. Patient had gradual onset of symptoms. Patient recent visit to her primary care physician who ordered some blood testing. Patient a prior history of hypercoagulable state and is currently taking factor X inhibitor. She was noted to have increased nonproductive cough as well as increased difficulty with breathing. She states she had a flu vaccine as well as a pneumonia vaccine earlier in the year. She denies being a smoker. She does not take inhalers regularly. Allergies: Coded Allergies: SULFA (SULFONAMIDE ANTIBIOTICS) (Unverified Allergy, Unknown, 05/02/15) allergy history per Dr. Jones Patient History Past Medical History: see triage record Last Menstrual Period: jun Now: No Reviewed Nursing Documentation: PMH: Agreed; PSxH: Agreed Nursing Documentation-PMH Hx Cardiac Problems: Yes - bilateral leg blood clots x 2 yr Hx Hypertension: Yes Hx Asthma: Yes Hx Diabetes: No Hx Cancer: No - - Hx Gastrointestinal Problems: Yes - GI bleeding Hx Neurological Problems: No Hx Cerebrovascular Accident: No - CELLULITIS LOWER ABD AND BI-LAT LEGS Review of Systems All Other Systems: negative except mentioned in HPI Physical Exam Vital Signs Date Time Temp Pulse Resp B/P (MAP) Pulse Ox O2 Delivery O2 Flow Rate FiO2 07/31/18 20:33 98.8 91 16 122/62 94 Room Air General Appearance: alert, obese, Chronically Ill ENT: normal ENT inspection Neck: normal inspection, full range of motion, supple Respiratory: normal inspection, chest non-tender, wheezing Cardiovascular #1: normal inspection, regular rate, rhythm, edema Gastrointestinal: normal inspection, normal bowel sounds Genitourinary: no CVA tenderness Musculoskeletal: swelling Neurologic: normal inspection, alert, oriented x3 Skin: other - healed leg ulcers Medical Decision Making Diagnostic Impression: Primary Impression: Pneumonitis ER Course Patient presented for chest pain. Differential included but was not limited to acute coronary syndrome, pulmonary embolism, pneumonia, aortic dissection, shingles, pneumothorax, aortic dissection, esophageal rupture, pericarditis. Because of complexity of patient's case laboratory testing and imaging studies were ordered. Laboratory testing was normal for elevated white blood count. Patient was noted to have a productive cough. Blood cultures were obtained. Troponin was negative. Lactic acid was normal. Patient is noted to be anticoagulated. Patient was given breathing treatment as well as IV antibiotics. Dr. Purdy was contacted for for inpatient management EKG Diagnostic Results Rate: normal Chest X-Ray Diagnostic Results Chest X-Ray Diagnostic Results : Chest X-Ray Ordered: Yes # of Views/Limited/Complete: 1 View Indication: Chest Pain Interpretation: no effusion Impression: Other Electronically Signed by: Electronically signed by Zbigniew Nair M.D. Last Vital Signs Date Time Temp Pulse Resp B/P (MAP) Pulse Ox O2 Delivery O2 Flow Rate FiO2 07/31/18 20:41 98.8 94 16 122/62 94 Room Air Status: unchanged Disposition: ADMITTED INPATIENT Condition: Serious Zbigniew Nair MD Jul 31, 2018 21:29
[2018-07-31] MEDS ORDERED: Albuterol/Ipratropium 3ml neb HHN ONE (21:30)
[2018-07-31 22:08] LABS: APPEARANCE,URINE CLEAR; BILIRUBIN, URINE NEGATIVE (NEGATIVE); COLOR,URINE AMBER; GLUCOSE, URINE (UA) NEGATIVE (NEGATIVE); KETONES,URINE NEGATIVE (NEGATIVE); LEUKOCYTE ESTERASE ,URINE NEGATIVE (NEGATIVE); NITRITE,URINE NEGATIVE (NEGATIVE); PH,URINE 8 (4.5-8.0); PROTEIN,URINE NEGATIVE (NEGATIVE); UROBILINOGEN,URINE NORMAL MG/DL (0.0-1.0)
[2018-07-31 22:18] LABS: HEMATOCRIT 33.6 % (37.0-47.0); HEMOGLOBIN 10.3 G/DL (12.0-16.0); MEAN CORPUSCULAR VOLUME 80 FL (80-99); PLATELET COUNT 285 K/UL (150-450); RED BLOOD COUNT 4.21 M/UL (4.20-5.40); RED CELL DISTRIBUTION WIDTH 14.4 % (11.6-14.8); WHITE BLOOD COUNT 20.9 K/UL (4.8-10.8)
[2018-07-31 22:28] LABS: ANION GAP 7 mmol/L (5-15); BLOOD UREA NITROGEN 15 mg/dL (7-18); CALCIUM 8.7 MG/DL (8.5-10.1); CARBON DIOXIDE 30 MMOL/L (21-32); CHLORIDE 101 MMOL/L (98-107); CREATININE 0.9 MG/DL (0.55-1.30); POTASSIUM 3.2 MMOL/L (3.5-5.1); SODIUM 138 MMOL/L (136-145)
[2018-07-31 22:39] LABS: ALANINE AMINOTRANSFERASE 18 U/L (12-78); ALBUMIN 2.9 G/DL (3.4-5.0); ALBUMIN/GLOBULIN RATIO 0.5 (1.0-2.7); ALKALINE PHOSPHATASE 75 U/L (46-116); ASPARTATE AMINO TRANSFERASE 14 U/L (15-37); BILIRUBIN,TOTAL 0.3 MG/DL (0.2-1.0)
[2018-07-31 23:15] VITALS: BP 117/72
[2018-08-01 00:57] VITALS: BP 115/73
[2018-08-01] MEDS ORDERED: Ampicillin/Sulbactam Sod 3 GM in NS 110 ML IVPB ONE (01:15)
--- NOTE | 2018-08-01 02:05 | NUR ---
ED Nurse Note: PT WAS SENT TO TELE WITH ONSHORE DIVER AND TRANSPORTED BY CACHORRO OSORIO AND [facility]. ALL PT BELONGINGS SENT UP WITH PT, PT IS AOX4, NO ACUTE DISTRESS, PT DENIES PAIN AT THIS TIME, PT SKIN IS INTACT.
[2018-08-01 02:30] VITALS: BP 131/74
--- NOTE | 2018-08-01 02:40 | NUR ---
NURSE NOTES: Received pt from [facility]. Pt AO x4, and in no acute distress. personnel monitor placed on pt showing SR. Oriented pt to room and unit. Bed placed in lowest position and call light within reach. Will call MD for admission orders.
[2018-08-01] MEDS ORDERED: HYDROcodone/Acetamin 10/325 tab ORAL PRN (05:00)
[2018-08-01] MEDS ORDERED: HYDROcodone/Acetamin 5/325 tab ORAL PRN (05:00)
[2018-08-01] MEDS ORDERED: DAILY VITE1 EACH ORAL (05:25)
[2018-08-01] MEDS: cefTRIAXone 1 GM in D5W 55 ML IVPB SCH (06:31)
[2018-08-01] MEDS: Azithromycin 500 MG in D5W 275 ML IV SCH (07:06)
[2018-08-01] MEDS: Albuterol/Ipratropium 3ml neb HHN PRN (07:12)
--- NOTE | 2018-08-01 07:30 | NUR ---
HAND-OFF: Report given to MARY Gonzalez.
--- NOTE | 2018-08-01 07:30 | NUR ---
NURSE NOTES: Received report from Darwin/Zbigniew HERNANDEZ. AO x4 and awake. Patient in bed receiving nebulizer tx. No signs of distress noted. No c/o pain. IV Right upper arm 22G ruunig IV ATB patent intact. Bed in lowest position locked. Continue to monitor plan of care.
[2018-08-01 08:00] VITALS: BP 103/65
--- NOTE | 2018-08-01 08:01 | NUR ---
CASE MANAGEMENT:REVIEW 57 YR OLD FEMALE FROM HOME CC: SOB, COLD,COUGH, EAR ACHE, SORE THROAT, BODY ACHES AND FEVER X4 DAYS PMH: BLE DVT. TAKES FACTOR X INHIBITOR. ASTHMA.GIB SI: PNEUMONITIS 98.8 91 16 122/62 94% ON RA WBC+20.9 IS: IV AMPICILLIN DUONEB HHN : TO TELEMETRY INTERQUAL CRITERIA MET
[2018-08-01 08:52] LABS: HEMATOCRIT 31.7 % (37.0-47.0); HEMOGLOBIN 9.8 G/DL (12.0-16.0); MEAN CORPUSCULAR VOLUME 80 FL (80-99); PLATELET COUNT 279 K/UL (150-450); RED BLOOD COUNT 3.96 M/UL (4.20-5.40); RED CELL DISTRIBUTION WIDTH 14.3 % (11.6-14.8); WHITE BLOOD COUNT 19.6 K/UL (4.8-10.8)
[2018-08-01 09:16] LABS: ALANINE AMINOTRANSFERASE 15 U/L (12-78); ALBUMIN 2.7 G/DL (3.4-5.0); ALBUMIN/GLOBULIN RATIO 0.6 (1.0-2.7); ALKALINE PHOSPHATASE 73 U/L (46-116); ANION GAP 8 mmol/L (5-15); ASPARTATE AMINO TRANSFERASE 17 U/L (15-37); BILIRUBIN,TOTAL 0.3 MG/DL (0.2-1.0); BLOOD UREA NITROGEN 13 mg/dL (7-18); CALCIUM 8.3 MG/DL (8.5-10.1); CARBON DIOXIDE 31 MMOL/L (21-32); CHLORIDE 100 MMOL/L (98-107); CREATININE 0.8 MG/DL (0.55-1.30); POTASSIUM 3.7 MMOL/L (3.5-5.1); SODIUM 139 MMOL/L (136-145)
[2018-08-01] MEDS: Eliquis 2.5mg tablet ORAL SCH ×2 (09:42→17:37)
--- NOTE | 2018-08-01 09:54 | History and Physical ---
History of Present Illness General Date patient seen: Aug 01, 2018 Reason for Hospitalization: Flu Like Symptoms Present Illness HPI 57 year old female with PMH of HTN presented with complaints of SOB, productive cough with green sputum for past weeks. Pt denies sick contacts, fevers, chills , n/v/c/d, recent travel, chest pain. In the ED pt note to have and elevated WBC count, CDX with concern for possible infiltrate, therefore started on ceftriaxone and azithromycin. Allergies: Coded Allergies: SULFA (SULFONAMIDE ANTIBIOTICS) (Unverified Allergy, Unknown, 05/02/15) allergy history per Dr. Jones Medication History Scheduled Apixaban (Eliquis), 5 MG PO BID, (Reported) Benazepril Hcl* (Benazepril Hcl*), 20 MG ORAL DAILY, (Reported) Cephalexin* (Keflex*), 500 MG ORAL Q6H Docusate Sodium* (Colace*), 100 MG ORAL TWICE A DAY, (Reported) Febuxostat (Uloric), 40 MG ORAL DAILY, (Reported) Furosemide* (Lasix*), 40 MG ORAL DAILY Hydrochlorothiazide* (Hydrochlorothiazide*), 25 MG ORAL DAILY, (Reported) Liraglutide (Saxenda), 3 MG SQ DAILY, (Reported) Multivitamin (Daily Mario), 1 TAB ORAL DAILY, (Reported) Scheduled PRN Acetaminophen With Codeine (T#3) (Tylenol With Codeine #3 Tablet), 1 TAB ORAL Q4H PRN for For Pain, (Reported) Hydrocodone Bit/Acetaminophen 7.5-300 Mg Tabl (Vicodin Es 7.5-300 Mg Tablet), 1 TAB ORAL Q4H PRN for For Pain, (Reported) Patient History History Provided By: Patient Healthcare decision maker Resuscitation status Full Code Advanced Directive on File Past Medical/Surgical History Past Medical/Surgical History: (1) HTN (hypertension) (2) Morbid obesity (3) Cough Family History Family History: Patient reports no known family medical history. Review of Systems Constitutional: Reports: no symptoms Eye: Reports: no symptoms ENT: Reports: no symptoms Respiratory: Reports: cough, shortness of breath Cardiovascular: Reports: no symptoms Gastrointestinal: Reports: no symptoms Genitourinary: Reports: no symptoms Musculoskeletal: Reports: no symptoms Skin: Reports: no symptoms Psychiatric: Reports: no symptoms Neurological: Reports: no symptoms Endocrine: Reports: no symptoms Hematologic/Lymphatic: Reports: no symptoms Physical Exam General Appearance: WD/WN, no apparent distress, alert Lines, tubes and drains: peripheral HEENT: normocephalic, atraumatic, anicteric, mucous membranes moist Neck: non-tender, normal alignment, supple, normal inspection Respiratory/Chest: chest wall non-tender, lungs clear, normal breath sounds Cardiovascular/Chest: normal peripheral pulses, normal rate, regular rhythm Abdomen: normal bowel sounds, non tender, soft, no organomegaly Extremities: normal range of motion, non-tender Skin Exam: normal pigmentation 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 normal Last 24 Hour Vital Signs Date Time Temp Pulse Resp B/P (MAP) Pulse Ox O2 Delivery O2 Flow Rate FiO2 08/01/18 08:00 98.0 99 20 103/65 (78) 96 99 08/01/18 07:12 96 20 96 Room Air 21 08/01/18 04:00 89 08/01/18 02:34 Room Air 08/01/18 02:30 97.9 97 18 131/74 (93) 99 08/01/18 02:30 97 08/01/18 02:18 98.8 85 18 115/73 100 Room Air 21 08/01/18 00:57 98.8 85 18 115/73 100 Room Air 21 07/31/18 23:15 98.8 92 17 117/72 100 Room Air 21 07/31/18 21:44 97 19 100 Room Air 21 07/31/18 21:34 101 22 97 Room Air 21 07/31/18 21:34 101 22 Room Air 21 07/31/18 20:41 98.8 94 16 122/62 94 Room Air 07/31/18 20:41 91 16 Room Air 07/31/18 20:33 98.8 91 16 122/62 94 Room Air Intake and Output 07/31/18 08/01/18 19:00 07:00 Intake Total 130 ml Balance 130 ml Intake Oral 130 ml Laboratory Tests Test 07/31/18 21:35 07/31/18 22:10 07/31/18 23:35 08/01/18 08:25 Urine Color Hue Urine Appearance Clear Urine pH 8 (4.5-8.0) Urine Specific [place] 1.010 (1.005-1.035) Urine Protein Negative (NEGATIVE) Urine Glucose (UA) Negative (NEGATIVE) Urine Ketones Negative (NEGATIVE) Urine Blood Negative (NEGATIVE) Urine Nitrite Negative (NEGATIVE) Urine Bilirubin Negative (NEGATIVE) Urine Ictotest Negative (NEGATIVE) Urine Urobilinogen Normal MG/DL (0.0-1.0) Urine Leukocyte Esterase Negative (NEGATIVE) Urine RBC 0-2 /HPF (0 - 2) Urine WBC 0 /HPF (0 - 2) Urine Squamous Epithelial Cells Few /LPF (NONE/OCC) Urine Bacteria Occasional /HPF (NONE) White Blood Count 20.9 K/UL (4.8-10.8) H 19.6 K/UL (4.8-10.8) H Red Blood Count 4.21 M/UL (4.20-5.40) 3.96 M/UL (4.20-5.40) L Hemoglobin 10.3 G/DL (12.0-16.0) L 9.8 G/DL (12.0-16.0) L Hematocrit 33.6 % (37.0-47.0) L 31.7 % (37.0-47.0) L Mean Corpuscular Volume 80 FL (80-99) 80 FL (80-99) Mean Corpuscular Hemoglobin 24.6 PG (27.0-31.0) L 24.8 PG (27.0-31.0) L Mean Corpuscular Hemoglobin Concent 30.8 G/DL (32.0-36.0) L 31.0 G/DL (32.0-36.0) L Red Cell Distribution Width 14.4 % (11.6-14.8) 14.3 % (11.6-14.8) Platelet Count 285 K/UL (150-450) 279 K/UL (150-450) Mean Platelet Volume 5.9 FL (6.5-10.1) L 5.5 FL (6.5-10.1) L Neutrophils (%) (Auto) % (45.0-75.0) % (45.0-75.0) Lymphocytes (%) (Auto) % (20.0-45.0) % (20.0-45.0) Monocytes (%) (Auto) % (1.0-10.0) % (1.0-10.0) Eosinophils (%) (Auto) % (0.0-3.0) % (0.0-3.0) Basophils (%) (Auto) % (0.0-2.0) % (0.0-2.0) Differential Total Cells Counted 100 100 Neutrophils % (Manual) 83 % (45-75) H 89 % (45-75) H Lymphocytes % (Manual) 10 % (20-45) L 7 % (20-45) L Monocytes % (Manual) 6 % (1-10) 4 % (1-10) Eosinophils % (Manual) 1 % (0-3) 0 % (0-3) Basophils % (Manual) 0 % (0-2) 0 % (0-2) Band Neutrophils 0 % (0-8) 0 % (0-8) Platelet Estimate Adequate Adequate Platelet Morphology Normal Normal Polychromasia 1+ Anisocytosis 1+ Microcytosis 1+ Sodium Level 138 MMOL/L (136-145) 139 MMOL/L (136-145) Potassium Level 3.2 MMOL/L (3.5-5.1) L 3.7 MMOL/L (3.5-5.1) Chloride Level 101 MMOL/L (98-107) 100 MMOL/L (98-107) Carbon Dioxide Level 30 MMOL/L (21-32) 31 MMOL/L (21-32) Anion Gap 7 mmol/L (5-15) 8 mmol/L (5-15) Blood Urea Nitrogen 15 mg/dL (7-18) 13 mg/dL (7-18) Creatinine 0.9 MG/DL (0.55-1.30) 0.8 MG/DL (0.55-1.30) Estimat Glomerular Filtration Rate > 60 mL/min (>60) > 60 mL/min (>60) Glucose Level 101 MG/DL (74-106) 128 MG/DL (74-106) H Calcium Level 8.7 MG/DL (8.5-10.1) 8.3 MG/DL (8.5-10.1) L Total Bilirubin 0.3 MG/DL (0.2-1.0) 0.3 MG/DL (0.2-1.0) Aspartate Amino Transf (AST/SGOT) 14 U/L (15-37) L 17 U/L (15-37) Alanine Aminotransferase (ALT/SGPT) 18 U/L (12-78) 15 U/L (12-78) Alkaline Phosphatase 75 U/L (46-116) 73 U/L (46-116) Troponin I 0.000 ng/mL (0.000-0.056) 0.000 ng/mL (0.000-0.056) Pro-B-Type Natriuretic Peptide 25 pg/mL (0-125) 27 pg/mL (0-125) Total Protein 8.2 G/DL (6.4-8.2) 7.1 G/DL (6.4-8.2) Albumin 2.9 G/DL (3.4-5.0) L 2.7 G/DL (3.4-5.0) L Globulin 5.3 g/dL 4.4 g/dL Albumin/Globulin Ratio 0.5 (1.0-2.7) L 0.6 (1.0-2.7) L Lactic Acid Level 1.70 mmol/L (0.4-2.0) Magnesium Level 1.7 MG/DL (1.8-2.4) L Microbiology Date/Time Source Procedure Growth Status 08/01/18 00:56 Nasal Nares Influenza Types A,B Antigen (SINDY) - Final Complete Height (Feet): 6 Height (Inches): 1.50 Weight (Pounds): 416 Medications Current Medications Medications (Trade) Dose Ordered Sig/Key Route PRN Reason Start Time Stop Time Status Last Admin Dose Admin Acetaminophen (Tylenol) 650 mg Q4H PRN ORAL Mild Pain/Temp > 100.5 08/01/18 05:00 08/31/18 04:59 Acetaminophen/ Hydrocodone Bitart ([place] 10/325) 1 tab Q4H PRN ORAL Severe Pain (Pain Scale 7-10) 08/01/18 05:00 08/08/18 04:59 Acetaminophen/ Hydrocodone Bitart ([place] 5/325) 1 tab Q4H PRN ORAL Moderate Pain (Pain Scale 4-6) 08/01/18 05:00 08/08/18 04:59 Albuterol/ Ipratropium (Albuterol/ Ipratropium) 3 ml Q4HRT PRN HHN Shortness of Breath 08/01/18 05:00 08/06/18 04:59 08/01/18 07:12 Apixaban (Eliquis) 5 mg BID ORAL 08/01/18 09:00 08/31/18 08:59 08/01/18 09:42 Azithromycin 500 mg/Dextrose 275 ml @ 275 mls/hr Q24HRS IV 08/01/18 06:00 08/07/18 06:59 08/01/18 07:06 Ceftriaxone Sodium 1 gm/ Dextrose 55 ml @ 110 mls/hr Q24H IVPB 08/01/18 06:00 08/08/18 05:59 08/01/18 06:31 Guaifenesin (Robitussin) 100 mg Q4H PRN ORAL For Cough 08/01/18 05:00 08/31/18 04:59 Multivitamins (Multivitamins) 1 tab DAILY ORAL 08/01/18 09:00 08/31/18 08:59 08/01/18 09:42 Non-Formulary Medication (Non-Formulary Med) 1 ea DAILY ORAL 08/01/18 09:00 08/31/18 08:59 UNV Assessment/Plan Status: stable Assessment/Plan 57 year old female with pmh of HTN presented with c/o sob and productive cough, admitted for possible PNA vs URI with bronchitis. #CAP PNA vs URI with bronchitis -cont ceftriaxone and azithromycin -ID consulted -F/U cultures #HTN -BP acceptable at this time -will hold CERTIFIED REGISTERED [facility] meds -Can start Norvasc if needed #Hx of DVT/PE -Cont eliquis Code status with discussion: Full I spent 75 min on this patients care, and 40 min was dedicated to counseling and /or care coordination Bobbi Barnett MD Aug 01, 2018 09:54
[2018-08-01] MEDS ORDERED: Magnesium Oxide 400mg tab ORAL SCH (10:00)
[2018-08-01 12:00] VITALS: BP 119/78
--- NOTE | 2018-08-01 12:50 | Diagnostic Imaging Report ---
Indication: Dyspnea Comparison: 02/16/2017 A single view chest radiograph was obtained. Findings: Cardiomediastinal appearance is within normal limits for age. The lungs are clear. Pulmonary vascularity is appropriate. The diaphragmatic contour is smooth and costophrenic angles are sharp. No pleural effusions are identified. The bones are unremarkable. Impression: No acute findings
[2018-08-01 16:00] VITALS: BP 120/73
--- NOTE | 2018-08-01 18:25 | Infectious Diseases Prog Note ---
Assessment/Plan Assessment/Plan Full consult dictated: A) 1) cap pna, uri/bronchitis, ? sepsis, leukocytosis 2) pmh noted 3) allergies - sulfa drugs P) 1) ceftriaxone and azithromycin 2) check cultures, labs and chest x-ray 3) thank you Subjective Allergies: Coded Allergies: SULFA (SULFONAMIDE ANTIBIOTICS) (Unverified Allergy, Unknown, 05/02/15) allergy history per Dr. Jones Objective Vital Signs Last 24 Hour Vital Signs Date Time Temp Pulse Resp B/P (MAP) Pulse Ox O2 Delivery O2 Flow Rate FiO2 08/01/18 16:00 97.5 86 20 120/73 (89) 96 86 08/01/18 15:15 90 08/01/18 12:00 97.9 95 18 119/78 (92) 95 87 08/01/18 11:42 89 08/01/18 09:00 Room Air 08/01/18 08:00 98.0 99 20 103/65 (78) 96 99 08/01/18 07:12 96 20 96 Room Air 21 08/01/18 04:00 89 08/01/18 02:34 Room Air 08/01/18 02:30 97.9 97 18 131/74 (93) 99 08/01/18 02:30 97 08/01/18 02:18 98.8 85 18 115/73 100 Room Air 21 08/01/18 00:57 98.8 85 18 115/73 100 Room Air 21 07/31/18 23:15 98.8 92 17 117/72 100 Room Air 21 07/31/18 21:44 97 19 100 Room Air 21 07/31/18 21:34 101 22 97 Room Air 21 07/31/18 21:34 101 22 Room Air 21 07/31/18 20:41 98.8 94 16 122/62 94 Room Air 07/31/18 20:41 91 16 Room Air 07/31/18 20:33 98.8 91 16 122/62 94 Room Air Height (Feet): 6 Height (Inches): 1.50 Weight (Pounds): 416 Microbiology Date/Time Source Procedure Growth Status 08/01/18 00:56 Nasal Nares Influenza Types A,B Antigen (SINDY) - Final Complete Laboratory Tests Test 07/31/18 21:35 07/31/18 22:10 07/31/18 23:35 08/01/18 08:25 Urine Color Hue Urine Appearance Clear Urine pH 8 (4.5-8.0) Urine Specific [place] 1.010 (1.005-1.035) Urine Protein Negative (NEGATIVE) Urine Glucose (UA) Negative (NEGATIVE) Urine Ketones Negative (NEGATIVE) Urine Blood Negative (NEGATIVE) Urine Nitrite Negative (NEGATIVE) Urine Bilirubin Negative (NEGATIVE) Urine Ictotest Negative (NEGATIVE) Urine Urobilinogen Normal MG/DL (0.0-1.0) Urine Leukocyte Esterase Negative (NEGATIVE) Urine RBC 0-2 /HPF (0 - 2) Urine WBC 0 /HPF (0 - 2) Urine Squamous Epithelial Cells Few /LPF (NONE/OCC) Urine Bacteria Occasional /HPF (NONE) White Blood Count 20.9 K/UL (4.8-10.8) H 19.6 K/UL (4.8-10.8) H Red Blood Count 4.21 M/UL (4.20-5.40) 3.96 M/UL (4.20-5.40) L Hemoglobin 10.3 G/DL (12.0-16.0) L 9.8 G/DL (12.0-16.0) L Hematocrit 33.6 % (37.0-47.0) L 31.7 % (37.0-47.0) L Mean Corpuscular Volume 80 FL (80-99) 80 FL (80-99) Mean Corpuscular Hemoglobin 24.6 PG (27.0-31.0) L 24.8 PG (27.0-31.0) L Mean Corpuscular Hemoglobin Concent 30.8 G/DL (32.0-36.0) L 31.0 G/DL (32.0-36.0) L Red Cell Distribution Width 14.4 % (11.6-14.8) 14.3 % (11.6-14.8) Platelet Count 285 K/UL (150-450) 279 K/UL (150-450) Mean Platelet Volume 5.9 FL (6.5-10.1) L 5.5 FL (6.5-10.1) L Neutrophils (%) (Auto) % (45.0-75.0) % (45.0-75.0) Lymphocytes (%) (Auto) % (20.0-45.0) % (20.0-45.0) Monocytes (%) (Auto) % (1.0-10.0) % (1.0-10.0) Eosinophils (%) (Auto) % (0.0-3.0) % (0.0-3.0) Basophils (%) (Auto) % (0.0-2.0) % (0.0-2.0) Differential Total Cells Counted 100 100 Neutrophils % (Manual) 83 % (45-75) H 89 % (45-75) H Lymphocytes % (Manual) 10 % (20-45) L 7 % (20-45) L Monocytes % (Manual) 6 % (1-10) 4 % (1-10) Eosinophils % (Manual) 1 % (0-3) 0 % (0-3) Basophils % (Manual) 0 % (0-2) 0 % (0-2) Band Neutrophils 0 % (0-8) 0 % (0-8) Platelet Estimate Adequate Adequate Platelet Morphology Normal Normal Polychromasia 1+ Anisocytosis 1+ Microcytosis 1+ Sodium Level 138 MMOL/L (136-145) 139 MMOL/L (136-145) Potassium Level 3.2 MMOL/L (3.5-5.1) L 3.7 MMOL/L (3.5-5.1) Chloride Level 101 MMOL/L (98-107) 100 MMOL/L (98-107) Carbon Dioxide Level 30 MMOL/L (21-32) 31 MMOL/L (21-32) Anion Gap 7 mmol/L (5-15) 8 mmol/L (5-15) Blood Urea Nitrogen 15 mg/dL (7-18) 13 mg/dL (7-18) Creatinine 0.9 MG/DL (0.55-1.30) 0.8 MG/DL (0.55-1.30) Estimat Glomerular Filtration Rate > 60 mL/min (>60) > 60 mL/min (>60) Glucose Level 101 MG/DL (74-106) 128 MG/DL (74-106) H Calcium Level 8.7 MG/DL (8.5-10.1) 8.3 MG/DL (8.5-10.1) L Total Bilirubin 0.3 MG/DL (0.2-1.0) 0.3 MG/DL (0.2-1.0) Aspartate Amino Transf (AST/SGOT) 14 U/L (15-37) L 17 U/L (15-37) Alanine Aminotransferase (ALT/SGPT) 18 U/L (12-78) 15 U/L (12-78) Alkaline Phosphatase 75 U/L (46-116) 73 U/L (46-116) Troponin I 0.000 ng/mL (0.000-0.056) 0.000 ng/mL (0.000-0.056) Pro-B-Type Natriuretic Peptide 25 pg/mL (0-125) 27 pg/mL (0-125) Total Protein 8.2 G/DL (6.4-8.2) 7.1 G/DL (6.4-8.2) Albumin 2.9 G/DL (3.4-5.0) L 2.7 G/DL (3.4-5.0) L Globulin 5.3 g/dL 4.4 g/dL Albumin/Globulin Ratio 0.5 (1.0-2.7) L 0.6 (1.0-2.7) L Lactic Acid Level 1.70 mmol/L (0.4-2.0) Magnesium Level 1.7 MG/DL (1.8-2.4) L Current Medications Medications (Trade) Dose Ordered Sig/Key Route PRN Reason Start Time Stop Time Status Last Admin Dose Admin Acetaminophen (Tylenol) 650 mg Q4H PRN ORAL Mild Pain/Temp > 100.5 08/01/18 05:00 08/31/18 04:59 08/01/18 16:32 Acetaminophen/ Hydrocodone Bitart ([place] 10/325) 1 tab Q4H PRN ORAL Severe Pain (Pain Scale 7-10) 08/01/18 05:00 08/08/18 04:59 Acetaminophen/ Hydrocodone Bitart ([place] 5/325) 1 tab Q4H PRN ORAL Moderate Pain (Pain Scale 4-6) 08/01/18 05:00 08/08/18 04:59 Albuterol/ Ipratropium (Albuterol/ Ipratropium) 3 ml Q4HRT PRN HHN Shortness of Breath 08/01/18 05:00 08/06/18 04:59 08/01/18 07:12 Apixaban (Eliquis) 5 mg BID ORAL 08/01/18 09:00 08/31/18 08:59 08/01/18 17:37 Azithromycin 500 mg/Dextrose 275 ml @ 275 mls/hr Q24HRS IV 08/01/18 06:00 08/07/18 06:59 08/01/18 07:06 Ceftriaxone Sodium 1 gm/ Dextrose 55 ml @ 110 mls/hr Q24H IVPB 08/01/18 06:00 08/08/18 05:59 08/01/18 06:31 Guaifenesin (Robitussin) 100 mg Q4H PRN ORAL For Cough 08/01/18 05:00 08/31/18 04:59 Multivitamins (Multivitamins) 1 tab DAILY ORAL 08/01/18 09:00 08/31/18 08:59 08/01/18 09:42 Patient Own Medication (Patient's Own Med) 1 ea DAILY ORAL 08/01/18 13:00 08/31/18 12:59 08/01/18 14:03 Slim Javed MD Aug 01, 2018 18:25
--- NOTE | 2018-08-01 19:15 | NUR ---
HAND-OFF: Report given to Karina HERNANDEZ. Patient remains stable..
[2018-08-01 20:00] VITALS: BP 110/70
[2018-08-02] VITALS: BP 130/80
[2018-08-02 04:00] VITALS: BP 108/83
--- NOTE | 2018-08-02 04:36 | Consultation ---
DATE OF CONSULTATION: 08/01/2018 ATTENDING PHYSICIAN: Dalia Holm M.D. REFERRING PHYSICIAN: Bobbi Barnett M.D. REASON FOR CONSULTATION: Pneumonia, sepsis, elevated white count. CHIEF COMPLAINT: The patient's chief complaint coming to the hospital is congestion, shortness of breath, and pneumonia. HISTORY OF PRESENT ILLNESS: This is a very pleasant 57-year-old female who has history of multiple medical problems including history of cellulitis in the past. The patient was noted to have over the last 7 to 10 days cough, congestion with yellow-green sputum production. The patient was noted also to have elevated white count. The patient presented to [facility] with congestion, shortness of breath, and was diagnosed with pneumonitis. White count was as high as 20.9. The patient was admitted for pneumonia and possible sepsis, elevated white count. The patient does have SIRS criteria. The patient has been started on Rocephin, azithromycin for community-acquired pneumonia. Sputum cultures and chest x-ray have been ordered. Initial chest x-ray showed no acute disease. MAR was noted. Orders were noted. Notes were reviewed. Case was discussed with the patient and the RN. Please see HPI. REVIEW OF SYSTEMS: CONSTITUTIONAL: She said prior to admission she did have fever and chills. She has no night sweats or weight loss. HEAD AND NECK: Review of systems, no head pain, neck pain, neck stiffness. No thrush or dysphagia. CARDIAC: No chest pain or palpitations. GASTROINTESTINAL: No nausea, vomiting, abdominal pain, diarrhea. GENITOURINARY: No dysuria or frequency. No CVA tenderness. No Shah. PULMONARY: She has cough, congestion, or green sputum production. SKIN: No rash or itching. EXTREMITY: No edema in the lower extremities. NEUROLOGIC: No seizures. CARDIAC: No chest pain or palpitations. PAST MEDICAL HISTORY: The patient has a past medical history of recurrent cellulitis in the past. She has a history of lower extremity edema and lower extremity cellulitis, history of blood clots, history of hypertension, history of asthma, history of GI bleed. No history of diabetes, history of hypercoagulable state and she is taking factor 10 inhibitor. History of obesity in the past. ALLERGIES: Include sulfa drugs. No allergies to penicillin. SOCIAL HISTORY: Negative for smoking, alcohol, or drug abuse. FAMILY HISTORY: Noncontributory. Negative for tuberculosis or cancer. MEDICATIONS: Upon the MAR, she is on following medications. She is on Eliquis or apixaban, multivitamins, Rocephin, azithromycin, albuterol, hydrocodone. She was given ampicillin and sulbactam in the ER. Outside medications noted and reconciled. PHYSICAL EXAMINATION: VITAL SIGNS: Temperature is 97.5, pulse rate is 86, respiratory rate is 20, saturation 95%, blood pressure 120/73, pulse rate has been over 100 as high as 101, and respiratory rate has been as high as 22. GENERAL: Alert, responsive, oriented x3. Nonfocal. NEUROLOGIC: Intact. HEAD AND NECK: Neck is supple. No icterus or thrush. Normocephalic. No JVD. HEART: Regular. No obvious gallop or murmur. No friction rub. ABDOMEN: Soft, positive bowel sounds, nontender. LUNGS: Few bilateral rhonchi, possible rales at the bases. SKIN: No rash or dermatitis. MUSCULOSKELETAL: No evidence of septic arthritis. EXTREMITIES: She has no cellulitis. She has maybe mild edema. PERIPHERAL VASCULAR: No gangrene. GENITOURINARY: She has no Shah. No CVA tenderness. Line sites are palpable without phlebitis. NEUROLOGIC: Intact. Nonfocal. She is oriented x3. LABORATORY DATA: Creatinine is 0.8. White count 19.6, hemoglobin 9.8. White count is as high as 20.9. Urinalysis is negative. Influenza screen is negative. Chest x-ray shows no acute disease. Followup chest x-ray and sputum cultures were ordered. Blood cultures are pending. ASSESSMENT AND PLAN: 1. The patient has clinically what seems like pneumonitis and certainly could have community-acquired pneumonia with cough, congestion, yellow-green sputum production. Most likely, pathogens with Streptococcus pneumonia, rule out atypical pneumonia. The patient also has a bronchitis and MRSA infection. The patient also could have sepsis, SIRS criteria, and elevated white count. At this time, we will continue Rocephin, azithromycin to cover community-acquired pneumonia, possible sepsis. Check followup chest x-ray, sputum culture, blood cultures and laboratories. 2. History of hypertension. Blood pressure treatment per primary. 3. History of cellulitis in the lower extremities. 4. Asthma. 5. History of GI bleed. 6. History of hypercoagulable state, getting factor X. 7. History of blood clots in lower extremities.. 8. Asthma and hypertension, treatment per primary. 9. Allergies to sulfa drugs. 10. Socially negative. 11. Family history is noncontributory. 12. mar noted 13. Continue per Dr. Barnett and consultants. 14. Notes and records were noted. Orders were entered. Slim Javed M.D. DR: Yao JOB#: [id number] CC: CARMELO
[2018-08-02] MEDS: cefTRIAXone 1 GM in D5W 55 ML IVPB SCH (05:34)
[2018-08-02] MEDS: guaiFENesin 100mg/5ml Liq ud ORAL PRN ×3 (06:27→17:52)
[2018-08-02] MEDS: Azithromycin 500 MG in D5W 275 ML IV SCH (06:30)
--- NOTE | 2018-08-02 07:20 | NUR ---
HAND-OFF: Report given to Christiano. Plan of care endorsed.
--- NOTE | 2018-08-02 07:30 | NUR ---
NURSE NOTES: Pt received from MARY Collins alert and oriented x4, currently sitting up in bed and eating breakfast. IV site asymptomatic and patent. Bed in lowest position, call light and belongings within reach.
[2018-08-02 07:32] LABS: EOSINOPHILS % (AUTO) 2.4 % (0.0-3.0); HEMATOCRIT 33.6 % (37.0-47.0); HEMOGLOBIN 10.3 G/DL (12.0-16.0); LYMPHOCYTES % (AUTO) 13.2 % (20.0-45.0); MEAN CORPUSCULAR VOLUME 81 FL (80-99); MONOCYTES % (AUTO) 5.8 % (1.0-10.0); NEUTROPHILS % (AUTO) 77.6 % (45.0-75.0); PLATELET COUNT 280 K/UL (150-450); RED BLOOD COUNT 4.17 M/UL (4.20-5.40); RED CELL DISTRIBUTION WIDTH 14.8 % (11.6-14.8); WHITE BLOOD COUNT 14.5 K/UL (4.8-10.8)
[2018-08-02 07:48] LABS: ANION GAP 8 mmol/L (5-15); BLOOD UREA NITROGEN 14 mg/dL (7-18); CALCIUM 8.8 MG/DL (8.5-10.1); CARBON DIOXIDE 30 MMOL/L (21-32); CHLORIDE 101 MMOL/L (98-107); CREATININE 0.8 MG/DL (0.55-1.30); PHOSPHORUS 3.7 MG/DL (2.5-4.9); POTASSIUM 3.6 MMOL/L (3.5-5.1); SODIUM 139 MMOL/L (136-145)
[2018-08-02 08:00] VITALS: BP 105/70
--- NOTE | 2018-08-02 08:27 | NUR ---
RADIOLOGY DEPT., CHEST X-RAY DONE-P.DYE
[2018-08-02] MEDS: Eliquis 2.5mg tablet ORAL SCH ×2 (09:40→17:28)
--- NOTE | 2018-08-02 10:25 | Diagnostic Imaging Report ---
Indication: Cough Technique: One view of the chest Comparison: 08/01/2018 Findings: Body habitus limits evaluation. Lungs and pleural spaces are clear. Heart size is normal Impression: No acute process
[2018-08-02 12:00] VITALS: BP 118/75
--- NOTE | 2018-08-02 14:24 | General Progress Note ---
Assessment/Plan Status: stable, progressing, tolerating diet Assessment/Plan 57 year old female with pmh of HTN presented with c/o sob and productive cough, admitted for possible PNA vs URI with bronchitis. 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 Jones All Systems: reviewed and negative except above Subjective No acute overnight events, pt states she feels better. has no complaints Objective Last 24 Hour Vital Signs Date Time Temp Pulse Resp B/P (MAP) Pulse Ox O2 Delivery O2 Flow Rate FiO2 08/02/18 12:00 98.7 86 21 118/75 (89) 95 86 08/02/18 09:00 Room Air 08/02/18 08:38 96 Room Air 21 08/02/18 08:38 Room Air 21 08/02/18 08:38 93 17 Room Air 21 08/02/18 08:00 98.6 86 19 105/70 (82) 97 86 08/02/18 08:00 74 08/02/18 04:00 97.7 80 20 108/83 (91) 94 80 08/02/18 04:00 84 08/02/18 00:00 70 08/02/18 00:00 97.7 86 20 130/80 (97) 95 85 08/01/18 22:04 96 Room Air 21 08/01/18 22:04 Room Air 21 08/01/18 21:00 Room Air 08/01/18 20:00 97.7 85 20 110/70 (83) 95 85 08/01/18 16:00 97.5 86 20 120/73 (89) 96 86 08/01/18 15:15 90 Intake and Output 08/01/18 08/02/18 18:59 06:59 Intake Total 360 ml 400 ml Output Total 600 ml Balance -240 ml 400 ml Intake Oral 360 ml 400 ml Output Urine Total 600 ml # Voids 3 Laboratory Tests 08/02/18 06:45: White Blood Count 14.5H, Red Blood Count 4.17L, Hemoglobin 10.3L, Hematocrit 33.6L, Mean Corpuscular Volume 81, Mean Corpuscular Hemoglobin 24.6L, Mean Corpuscular Hemoglobin Concent 30.6L, Red Cell Distribution Width 14.8, Platelet Count 280, Mean Platelet Volume 6.2L, Neutrophils (%) (Auto) 77.6H, Lymphocytes (%) (Auto) 13.2L, Monocytes (%) (Auto) 5.8, Eosinophils (%) (Auto) 2.4, Basophils (%) (Auto) 1.0, Sodium Level 139, Potassium Level 3.6, Chloride Level 101, Carbon Dioxide Level 30, Anion Gap 8, Blood Urea Nitrogen 14, Creatinine 0.8, Estimat Glomerular Filtration Rate > 60, Glucose Level 100, Calcium Level 8.8, Phosphorus Level 3.7, Magnesium Level 1.9 Height (Feet): 6 Height (Inches): 1.50 Weight (Pounds): 416 Objective Constitutional: Reports: no symptoms Eye: Reports: no symptoms ENT: Reports: no symptoms Respiratory: Reports: cough Cardiovascular: Reports: no symptoms Gastrointestinal: Reports: no symptoms Genitourinary: Reports: no symptoms Musculoskeletal: Reports: no symptoms Skin: Reports: no symptoms Psychiatric: Reports: no symptoms Neurological: Reports: no symptoms Endocrine: Reports: no symptoms Hematologic/Lymphatic: Reports: no symptoms oBbbi Barnett MD Aug 02, 2018 14:24
[2018-08-02 16:00] VITALS: BP 108/73
--- NOTE | 2018-08-02 19:20 | NUR ---
HAND-OFF: Report given to MARY Link.
[2018-08-02] MEDS: Albuterol/Ipratropium 3ml neb HHN PRN (19:53)
--- NOTE | 2018-08-02 20:44 | NUR ---
HAND-OFF: Report given to Aubree HERNANDEZ. Endorsed plan of care.
--- NOTE | 2018-08-02 20:45 | NUR ---
NURSE NOTES: Received report from MARY Link Tele, pt awake, alert, oriented, no c/o pain or signs of distress, able to make needs known, brought up with belongings, all belongings at bedside, call light within reach, IV in place, Nikolay brought up pt IV medication, will look for bedside commode, will take vitals and continue to monitor. Addendum: 08/02/18 at 2154 by NORA COSTELLO RN NURSE NOTES: Vitals: 97.9 85HR 19rr 122/82 96%Room Air
[2018-08-02 21:00] VITALS: BP 122/82
[2018-08-02] MEDS ORDERED: Albuterol/Ipratropium 3ml neb HHN PRN (23:00)
[2018-08-03] VITALS: BP 105/77
--- NOTE | 2018-08-03 | Cardiology Report ---
APPROVED REPORT EKG Measurement Heart [id number] Normal sinus rhythm Normal ECG
[2018-08-03] MEDS ORDERED: HYDROcodone/Acetamin 5/325 tab ORAL PRN (01:00)
[2018-08-03] MEDS ORDERED: HYDROcodone/Acetamin 10/325 tab ORAL PRN (01:00)
[2018-08-03] MEDS: guaiFENesin 100mg/5ml Liq ud ORAL PRN ×2 (01:06→09:25)
[2018-08-03 04:00] VITALS: BP 112/78
[2018-08-03] MEDS ORDERED: Azithromycin 500 MG in D5W 275 ML IV SCH (06:00)
[2018-08-03 06:41] LABS: BASOPHILS % (AUTO) 0.7 % (0.0-2.0); EOSINOPHILS % (AUTO) 2.5 % (0.0-3.0); HEMOGLOBIN 9.9 G/DL (12.0-16.0); LYMPHOCYTES % (AUTO) 15.8 % (20.0-45.0); MEAN CORPUSCULAR VOLUME 81 FL (80-99); MONOCYTES % (AUTO) 6.1 % (1.0-10.0); PLATELET COUNT 292 K/UL (150-450); RED BLOOD COUNT 3.95 M/UL (4.20-5.40); RED CELL DISTRIBUTION WIDTH 14.9 % (11.6-14.8); WHITE BLOOD COUNT 13.8 K/UL (4.8-10.8)
[2018-08-03 06:56] LABS: ANION GAP 8 mmol/L (5-15); BLOOD UREA NITROGEN 15 mg/dL (7-18); CALCIUM 8.8 MG/DL (8.5-10.1); CARBON DIOXIDE 30 MMOL/L (21-32); CHLORIDE 102 MMOL/L (98-107); CREATININE 0.9 MG/DL (0.55-1.30); PHOSPHORUS 3.8 MG/DL (2.5-4.9); POTASSIUM 3.8 MMOL/L (3.5-5.1); SODIUM 140 MMOL/L (136-145)
[2018-08-03] MEDS ORDERED: cefTRIAXone 1 GM in D5W 55 ML IVPB SCH (07:00)
--- NOTE | 2018-08-03 07:17 | NUR ---
HAND-OFF: Report given to MARY Weems.
--- NOTE | 2018-08-03 07:21 | NUR ---
NURSE NOTES: received report from MARY Mak. patient in bed. alert, verbally responsive. no respiratory distress noted. no c/o pain at this time. IV RFA saline lock intact. bed in the lowest position . call light within reach. will continue to monitor
[2018-08-03 08:00] VITALS: BP 137/80
[2018-08-03] MEDS ORDERED: Eliquis 2.5mg tablet ORAL SCH (09:00)
[2018-08-03] MEDS ORDERED: Magnesium Oxide 400mg tab ORAL SCH (10:00)
--- NOTE | 2018-08-03 10:59 | Discharge Instructions ---
Discharge Instructions Discharge Instructions Follow up with: Dr. Robert Villareal MD/Return to Hospital if: fevers, uncontrolled vomiting, Diet: regular Resume Normal Activity?: Yes Activity: resume normal activities For Congestive Heart Failure Reminder Report to your physician any weight gain of 5 pounds or more in one week. Bobbi Barnett MD Aug 03, 2018 10:59
[2018-08-03 12:00] VITALS: BP 137/71
--- NOTE | 2018-08-03 14:19 | Infectious Diseases Prog Note ---
Assessment/Plan Assessment/Plan ASSESSMENT AND PLAN: 1. uri/bronchitis, ? sepsis, leukocytosis, bc - neg, ua-neg, chest x-ray neg - rocephin and azithromycin - leukocytosis improved - can transition to oral azithromycin and vantin - communicated with Dr. Barnett about antibiotics - stable from ID standpoint 2. History of hypertension. Blood pressure treatment per primary. 3. History of cellulitis in the lower extremities. 4. Asthma. 5. History of GI bleed. 6. History of hypercoagulable state, getting factor X. 7. History of blood clots in lower extremities.. 8. Asthma and hypertension, treatment per primary. 9. Allergies to sulfa drugs. 10. Socially negative. 11. Family history is noncontributory. 12. mar noted 13. Continue per Dr. Barnett and consultants. 14. Notes and records were noted. Orders were entered. Subjective Constitutional: Reports: fatigue, other - no fever or chills ; Denies: fever HEENT: Reports: congestion - less Respiratory: Reports: shortness of breath - less Cardiovascular: Denies: chest pain Gastrointestinal/Abdominal: Denies: nausea, vomiting, diarrhea Genitourinary: Reports: other - no eaton, no cva pain Neurologic: Denies: headache Psychiatric: Denies: depression Skin: Denies: rash Hematologic: Denies: bleeding Musculoskeletal: Denies: pain Allergies: Coded Allergies: SULFA (SULFONAMIDE ANTIBIOTICS) (Unverified Allergy, Unknown, 05/02/15) allergy history per Dr. Jones Objective Vital Signs Last 24 Hour Vital Signs Date Time Temp Pulse Resp B/P (MAP) Pulse Ox O2 Delivery O2 Flow Rate FiO2 08/03/18 12:00 98.5 78 18 137/71 (93) 96 78 08/03/18 09:00 Room Air 08/03/18 08:00 98.5 90 19 137/80 (99) 96 90 08/03/18 04:00 98.2 84 19 112/78 (89) 96 84 08/03/18 00:00 98.0 90 19 105/77 (86) 95 90 08/02/18 21:00 Room Air 08/02/18 21:00 97.9 85 19 122/82 (95) 96 85 08/02/18 20:04 82 18 100 Room Air 21 08/02/18 19:53 98 Room Air 21 08/02/18 19:53 Room Air 21 08/02/18 19:53 82 18 98 Room Air 21 08/02/18 16:00 98.7 80 19 108/73 (85) 96 80 08/02/18 16:00 97 Height (Feet): 6 Height (Inches): 1.50 Weight (Pounds): 416 General Appearance: no acute distress HEENT: normocephalic, atraumatic, anicteric, mucous membranes moist Respiratory/Chest: lungs clear, normal breath sounds, no respiratory distress, no accessory muscle use Cardiovascular: normal rate, regular rhythm, no gallop/murmur, no JVD Abdomen: normal bowel sounds, soft, non tender, no organomegaly, non distended Genitourinary: other - no eaton, no cva pain Extremities: no cyanosis Skin: no rash 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 Resulted 08/01/18 00:56 Nasal Nares Influenza Types A,B Antigen (SINDY) - Final Complete Laboratory Tests Test 08/03/18 05:10 White Blood Count 13.8 K/UL (4.8-10.8) H Red Blood Count 3.95 M/UL (4.20-5.40) L Hemoglobin 9.9 G/DL (12.0-16.0) L Hematocrit 32.0 % (37.0-47.0) L Mean Corpuscular Volume 81 FL (80-99) Mean Corpuscular Hemoglobin 25.1 PG (27.0-31.0) L Mean Corpuscular Hemoglobin Concent 31.1 G/DL (32.0-36.0) L Red Cell Distribution Width 14.9 % (11.6-14.8) H Platelet Count 292 K/UL (150-450) Mean Platelet Volume 6.7 FL (6.5-10.1) Neutrophils (%) (Auto) 75.0 % (45.0-75.0) Lymphocytes (%) (Auto) 15.8 % (20.0-45.0) L Monocytes (%) (Auto) 6.1 % (1.0-10.0) Eosinophils (%) (Auto) 2.5 % (0.0-3.0) Basophils (%) (Auto) 0.7 % (0.0-2.0) Sodium Level 140 MMOL/L (136-145) Potassium Level 3.8 MMOL/L (3.5-5.1) Chloride Level 102 MMOL/L (98-107) Carbon Dioxide Level 30 MMOL/L (21-32) Anion Gap 8 mmol/L (5-15) Blood Urea Nitrogen 15 mg/dL (7-18) Creatinine 0.9 MG/DL (0.55-1.30) Estimat Glomerular Filtration Rate > 60 mL/min (>60) Glucose Level 98 MG/DL (74-106) Calcium Level 8.8 MG/DL (8.5-10.1) Phosphorus Level 3.8 MG/DL (2.5-4.9) Magnesium Level 1.7 MG/DL (1.8-2.4) L Current Medications Medications (Trade) Dose Ordered Sig/Key Route PRN Reason Start Time Stop Time Status Last Admin Dose Admin Acetaminophen (Tylenol) 650 mg Q4H PRN ORAL Mild Pain/Temp > 100.5 08/03/18 01:00 08/31/18 04:59 08/03/18 08:36 Acetaminophen/ Hydrocodone Bitart ([place] 10/325) 1 tab Q4H PRN ORAL Severe Pain (Pain Scale 7-10) 08/03/18 01:00 08/08/18 04:59 Acetaminophen/ Hydrocodone Bitart ([place] 5/325) 1 tab Q4H PRN ORAL Moderate Pain (Pain Scale 4-6) 08/03/18 01:00 08/08/18 04:59 Albuterol/ Ipratropium (Albuterol/ Ipratropium) 3 ml Q4HRT PRN HHN Shortness of Breath 08/02/18 23:00 08/06/18 04:59 Apixaban (Eliquis) 5 mg BID ORAL 08/03/18 09:00 08/31/18 08:59 08/03/18 08:36 Azithromycin 500 mg/Dextrose 275 ml @ 275 mls/hr Q24HRS IV 08/03/18 06:00 08/07/18 06:59 08/03/18 05:01 Ceftriaxone Sodium 1 gm/ Dextrose 55 ml @ 110 mls/hr Q24H IVPB 08/03/18 07:00 08/08/18 06:59 08/03/18 06:13 Guaifenesin (Robitussin) 100 mg Q4H PRN ORAL For Cough 08/03/18 01:00 08/31/18 04:59 08/03/18 09:25 Multivitamins (Multivitamins) 1 tab DAILY ORAL 08/03/18 09:00 08/31/18 08:59 08/03/18 08:36 Patient Own Medication (Patient's Own Med) 1 ea DAILY ORAL 08/03/18 09:00 08/31/18 12:59 08/03/18 09:00 Slim Javed MD Aug 03, 2018 14:19
[2018-08-03] MEDS ORDERED: Tubing IV Secondary IV ONE (15:04)
[2018-08-03] MEDS ORDERED: D5W 275ml ONE (15:04)
[2018-08-03] MEDS ORDERED: NS 275ml ONE (15:04)
[2018-08-03 16:00] VITALS: BP 129/70
--- NOTE | 2018-08-03 17:37 | NUR ---
NURSE NOTES: patient discharged to home with stable condition. IV and name band removed. DC packet and new prescription handed. checked belonging with patient and obtained sign.
--- NOTE | 2018-08-06 09:12 | Discharge Summary ---
Discharge Summary Hospital Course Date of Admission Jul 31, 2018 at 23:43 Date of Discharge Aug 03, 2018 at 17:20 Admitting Diagnosis sob, pneumonitis HPI Marielle Mccormack is a 57 year old female who was admitted on Jul 31, 2018 at 23:43 for Shortness Of Breath/Pneumonitis Consultations ID Hospital Course 57 year old female with pmh of HTN presented with c/o sob and productive cough, admitted to medicine service for CAP PNA vs URI with bronchitis. Pt evalated by ID, treated with ceftriaxone and azithromycin with improvement in symptoms. Blood cultures, sputum cultures and influenza was negative. Pt discharged on Vantin and azithromycin. On discharge pt was ambulating with a stable gait, tolerating diet and hemodynamically stable. 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 grossly normal Code status with discussion: Full I spent 35 minutes for discharge planning Discharge Medications Continued Medications: Acetaminophen With Codeine (T#3) (Tylenol With Codeine #3 Tablet) Y Tab 1 TAB ORAL Q4H PRN for For Pain, TAB Apixaban (Eliquis) 5 Mg Tablet 5 MG PO BID, TAB (This prescription has been renewed) Benazepril Hcl* (Benazepril Hcl*) 20 Mg Tablet 20 MG ORAL DAILY, TAB (This prescription has been renewed) Docusate Sodium* (Colace*) 100 Mg Capsule 100 MG ORAL TWICE A DAY, CAP Febuxostat (Uloric) 40 Mg Tablet 40 MG ORAL DAILY, TAB 0 Refills Furosemide* (Lasix*) 40 Mg Tablet 40 MG ORAL DAILY, #30 TAB Hydrochlorothiazide* (Hydrochlorothiazide*) 25 Mg Tablet 25 MG ORAL DAILY, TAB (This prescription has been renewed) Hydrocodone Bit/Acetaminophen 7.5-300 Mg Tabl (Vicodin Es 7.5-300 Mg Tablet) 1 Each Tablet 1 TAB ORAL Q4H PRN for For Pain, #30 TAB 0 Refills (This prescription has been renewed) Liraglutide (Saxenda) 3 Mg/0.5 Ml Pen.injctr 3 MG SQ DAILY, EA (This prescription has been renewed) Multivitamin (Daily Mario) 1 Each Tablet 1 TAB ORAL DAILY, #30 TAB 0 Refills (This prescription has been renewed) Discontinued Medications: Cephalexin* (Keflex*) 500 Mg Capsule 500 MG ORAL Q6H, #28 CAP 0 Refills Discharge Condition Upon Discharge: stable Discharge Disposition Patient was discharged to Home (01) Discharge Diagnoses: (1) Gout (2) Deep vein thrombosis (DVT) of left lower extremity (3) Hypokalemia (4) SOB (shortness of breath) (5) HTN (hypertension) (6) Pneumonitis Discharge Instructions Discharge Instructions Follow up with: Dr. Robert Villareal MD/Return to Hospital if: fevers, uncontrolled vomiting, Activity: resume normal activities Bobbi Barnett MD Aug 06, 2018 09:12
== END 2018-08-03 17:20 | disposition home or self-care (01) | DRG 195 ==
LOC: EMR 21:30 → EDBEDREQ 23:28 → 2E 23:43 → EDBEDREQ 08-01 01:01 → 4E 08-02 23:10
DX: J18.9 Pneumonia, unspecified organism (principal); I10 Essential (primary) hypertension; Z86.718 Personal history of other venous thrombosis and embolism; Z86.711 Personal history of pulmonary embolism; M10.9 Gout, unspecified; E87.6 Hypokalemia; Z88.2 Allergy status to sulfonamides; Z79.01 Long term (current) use of anticoagulants
CPT/HCPCS: 36415; 71045; 80048; 80053; 81001; 83605; 83735; 83880; 84100; 84484; 85007; 85025; 86710; 87040; 87070; 87205; 93005; 94640; 94664; 94760; 96365; 99285; J7620

== ENCOUNTER 2018-11-12 16:52 | Outpatient (CLI) | payer MEDICARE, OTHER ==
[~2018-11-12 16:52] MED LIST changes: +DAILY VITE1 EACH ORAL
[2018-11-12 17:35] LABS: EOSINOPHILS % (AUTO) 0.7 % (0.0-3.0); HEMATOCRIT 38.4 % (37.0-47.0); HEMOGLOBIN 11.7 G/DL (12.0-16.0); LYMPHOCYTES % (AUTO) 15.1 % (20.0-45.0); MEAN CORPUSCULAR VOLUME 81 FL (80-99); MONOCYTES % (AUTO) 6.1 % (1.0-10.0); NEUTROPHILS % (AUTO) 77.1 % (45.0-75.0); PLATELET COUNT 301 K/UL (150-450); RED BLOOD COUNT 4.72 M/UL (4.20-5.40); RED CELL DISTRIBUTION WIDTH 14.3 % (11.6-14.8); WHITE BLOOD COUNT 12.3 K/UL (4.8-10.8)
[2018-11-12 17:36] LABS: APPEARANCE,URINE CLEAR; BILIRUBIN, URINE NEGATIVE (NEGATIVE); COLOR,URINE YELLOW; GLUCOSE, URINE (UA) NEGATIVE (NEGATIVE); KETONES,URINE NEGATIVE (NEGATIVE); LEUKOCYTE ESTERASE ,URINE 1+ (NEGATIVE); NITRITE,URINE NEGATIVE (NEGATIVE); PH,URINE 6 (4.5-8.0); PROTEIN,URINE NEGATIVE (NEGATIVE); UROBILINOGEN,URINE 1 MG/DL (0.0-1.0)
[2018-11-12 18:08] LABS: ALANINE AMINOTRANSFERASE 20 U/L (12-78); ALBUMIN 3.5 G/DL (3.4-5.0); ALBUMIN/GLOBULIN RATIO 0.8 (1.0-2.7); ALKALINE PHOSPHATASE 86 U/L (46-116); ANION GAP 7 mmol/L (5-15); ASPARTATE AMINO TRANSFERASE 19 U/L (15-37); BILIRUBIN,TOTAL 0.2 MG/DL (0.2-1.0); BLOOD UREA NITROGEN 21 mg/dL (7-18); CALCIUM 8.9 MG/DL (8.5-10.1); CARBON DIOXIDE 32 MMOL/L (21-32); CHLORIDE 101 MMOL/L (98-107); CHOLESTEROL 173 MG/DL (< 200); HDL CHOLESTEROL 57 MG/DL (40-60); POTASSIUM 3.6 MMOL/L (3.5-5.1); SODIUM 140 MMOL/L (136-145); TRIGLYCERIDES 87 MG/DL (30-150)
== END 2018-11-12 18:52 | disposition home or self-care (01) ==
LOC: LAB 16:52
DX: E66.9 Obesity, unspecified (principal); I10 Essential (primary) hypertension; Z88.2 Allergy status to sulfonamides
CPT/HCPCS: 36415; 80053; 80061; 81001; 83036; 85025

== ENCOUNTER 2019-01-31 16:35 | Outpatient (CLI) | payer MEDICARE, OTHER ==
[2019-01-31 17:26] LABS: EOSINOPHILS % (AUTO) 1.7 % (0.0-3.0); HEMATOCRIT 36.4 % (37.0-47.0); HEMOGLOBIN 11.2 G/DL (12.0-16.0); LYMPHOCYTES % (AUTO) 14.1 % (20.0-45.0); MEAN CORPUSCULAR VOLUME 84 FL (80-99); MONOCYTES % (AUTO) 5.8 % (1.0-10.0); NEUTROPHILS % (AUTO) 77.5 % (45.0-75.0); PLATELET COUNT 314 K/UL (150-450); RED BLOOD COUNT 4.35 M/UL (4.20-5.40); RED CELL DISTRIBUTION WIDTH 13.8 % (11.6-14.8); WHITE BLOOD COUNT 12.4 K/UL (4.8-10.8)
[2019-01-31 17:34] LABS: APPEARANCE,URINE CLEAR; BILIRUBIN, URINE NEGATIVE (NEGATIVE); COLOR,URINE PALE YELLOW; GLUCOSE, URINE (UA) NEGATIVE (NEGATIVE); KETONES,URINE NEGATIVE (NEGATIVE); LEUKOCYTE ESTERASE ,URINE NEGATIVE (NEGATIVE); NITRITE,URINE NEGATIVE (NEGATIVE); PH,URINE 7 (4.5-8.0); PROTEIN,URINE NEGATIVE (NEGATIVE); UROBILINOGEN,URINE NORMAL MG/DL (0.0-1.0)
[2019-01-31 18:13] LABS: ALANINE AMINOTRANSFERASE 23 U/L (12-78); ALBUMIN 3.1 G/DL (3.4-5.0); ALBUMIN/GLOBULIN RATIO 0.7 (1.0-2.7); ALKALINE PHOSPHATASE 94 U/L (46-116); ANION GAP 10 mmol/L (5-15); ASPARTATE AMINO TRANSFERASE 22 U/L (15-37); BILIRUBIN,TOTAL 0.2 MG/DL (0.2-1.0); BLOOD UREA NITROGEN 14 mg/dL (7-18); CALCIUM 8.9 MG/DL (8.5-10.1); CARBON DIOXIDE 28 MMOL/L (21-32); CHLORIDE 103 MMOL/L (98-107); CHOLESTEROL 174 MG/DL (< 200); CREATININE 0.8 MG/DL (0.55-1.30); HDL CHOLESTEROL 56 MG/DL (40-60); POTASSIUM 3.8 MMOL/L (3.5-5.1); SODIUM 141 MMOL/L (136-145); TRIGLYCERIDES 101 MG/DL (30-150)
== END 2019-01-31 18:35 | disposition home or self-care (01) ==
LOC: LAB 16:35
DX: E66.01 Morbid (severe) obesity due to excess calories (principal); I10 Essential (primary) hypertension; E79.0 Hyperuricemia without signs of inflammatory arthritis and tophaceous disease
CPT/HCPCS: 36415; 80053; 80061; 81001; 83036; 85025

== ENCOUNTER 2019-03-25 20:14 | Emergency (ER) | payer MEDICARE, OTHER ==
[~2019-03-25] VITALS: Ht 185.4 cm; Wt 188.2 kg
[2019-03-25 21:00] VITALS: BP 124/77
--- NOTE | 2019-03-25 21:00 | NUR ---
ER Nurse Note: Pt arrived with wheelchair c/o lower abd and leg pain. Pt stated she visited her MD, Dr Jones, and was told to follow up in ED for blood work and a sonogram. Pt stated she has pain for unk time. Pt stated hx of clots in her LT leg. Pt cannot ambulate. Urine and blood sent to lab.
--- NOTE | 2019-03-25 21:07 | Emergency Room Report ---
History of Present Illness General Chief Complaint: Abdominal Pain Source: Patient Present Illness HPI This is a 58-year-old female with a history of high blood pressure and diabetes. She is also morbidly obese and is wheelchair-bound. She presents with chief complaint of right lower quadrant pain for the last 2 to 3 weeks. Worse in the last couple days. Saw her primary care doctor today who ordered lab work and ultrasound. Patient denies any fever chills but no nausea no vomiting. Pain is sharp and crampy. Localized mostly over the pannus in the right lower quadrant area. Eating drinking without any problem. No urinary complaint. Allergies: Coded Allergies: SULFA (SULFONAMIDE ANTIBIOTICS) (Unverified Allergy, Unknown, 05/02/15) allergy history per Dr. Jones Patient History Past Medical History: see triage record, old chart reviewed, DM, HTN, CAD Past Surgical History: other Pertinent Family History: none Social History: Denies: smoking Last Menstrual Period: 02/25/19 Now: No : 4 Para: 3 Immunizations: other Reviewed Nursing Documentation: PMH: Agreed; PSxH: Agreed Nursing Documentation-PMH Hx Cardiac Problems: Yes - bilateral leg blood clots x 2 yr Hx Hypertension: Yes Hx Asthma: Yes - as child up until age 10 Hx Diabetes: No Hx Cancer: No - - Hx Gastrointestinal Problems: Yes - GI bleeding Hx Neurological Problems: No Hx Cerebrovascular Accident: No - CELLULITIS LOWER ABD AND BI-LAT LEGS Review of Systems Eye: Denies: eye pain, blurred vision ENT: Denies: ear pain, nose congestion, throat swelling Respiratory: Denies: cough, shortness of breath Cardiovascular: Denies: chest pain, palpitations Gastrointestinal: Reports: abdominal pain; Denies: diarrhea, nausea, vomiting Musculoskeletal: Denies: back pain, joint pain Skin: Denies: rash Neurological: Denies: headache, numbness Endocrine: Denies: increased thirst, increased urine Hematologic/Lymphatic: Denies: easy bruising All Other Systems: negative except mentioned in HPI Physical Exam Vital Signs Date Time Temp Pulse Resp B/P (MAP) Pulse Ox O2 Delivery O2 Flow Rate FiO2 03/25/19 20:19 98.2 87 16 124/77 (93) 97 Room Air Vitals normal Sp02 EP Interpretation: reviewed, normal General Appearance: well appearing, no apparent distress, alert, obese Head: normocephalic, atraumatic Eyes: bilateral eye PERRL, bilateral eye EOMI ENT: hearing grossly normal, normal pharynx Neck: full range of motion, supple, no meningismus Respiratory: chest non-tender, lungs clear, normal breath sounds Cardiovascular #1: regular rate, rhythm, no murmur Gastrointestinal: normal bowel sounds, no mass, no organomegaly, no bruit, non- distended, tenderness - Right lower quadrant/pannus Musculoskeletal: back normal, normal range of motion Psychiatric: mood/affect normal Medical Decision Making Diagnostic Impression: Primary Impression: Abdominal wall pain in right lower quadrant Additional Impression: Morbid obesity ER Course Patient presents with abdominal pain. This is a chronic issue for 2 to 3 weeks. No evidence of infection. No evidence of acute abdomen. Initially wanted order CT scan but patient was too obese for the scanner. Ultrasound show calcified uterus. This is unchanged from before. Labs unremarkable. No evidence of infection. Will discharge home. Will give patient reports. CT/MRI/US Diagnostic Results CT/MRI/US Diagnostic Results : Imaging Test Ordered: Pelvic ultrasound Impression Read by radiologist. Uterus is heterogeneous and contain partially calcified fibroids. Last Vital Signs Date Time Temp Pulse Resp B/P (MAP) Pulse Ox O2 Delivery O2 Flow Rate FiO2 03/25/19 20:19 98.2 87 16 124/77 (93) 97 Room Air Status: improved Disposition: HOME, SELF-CARE Condition: Stable Scripts Ibuprofen* (MOTRIN*) 600 Mg Tablet 600 MG ORAL THREE TIMES A DAY, #30 TAB 0 Refills Prov: Edmond New MD 03/25/19 Referrals: NON PHYSICIAN (PCP) Patient Instructions: Abdominal Pain, Adult Additional Instructions: Follow-up with Dr. Jones within a week. Bring your labs and ultrasound scan report. Return if symptoms worsen. Edmond New MD Mar 25, 2019 21:07
[2019-03-25 21:22] LABS: BASOPHILS % (AUTO) 1.7 % (0.0-2.0); EOSINOPHILS % (AUTO) 0.9 % (0.0-3.0); HEMATOCRIT 36.9 % (37.0-47.0); HEMOGLOBIN 11.8 G/DL (12.0-16.0); LYMPHOCYTES % (AUTO) 13.5 % (20.0-45.0); MEAN CORPUSCULAR VOLUME 79 FL (80-99); MONOCYTES % (AUTO) 5.7 % (1.0-10.0); NEUTROPHILS % (AUTO) 78.3 % (45.0-75.0); PLATELET COUNT 333 K/UL (150-450); RED BLOOD COUNT 4.67 M/UL (4.20-5.40); RED CELL DISTRIBUTION WIDTH 12.7 % (11.6-14.8); WHITE BLOOD COUNT 13.6 K/UL (4.8-10.8)
[2019-03-25 21:27] LABS: APPEARANCE,URINE CLEAR; BILIRUBIN, URINE NEGATIVE (NEGATIVE); COLOR,URINE PALE YELLOW; GLUCOSE, URINE (UA) NEGATIVE (NEGATIVE); KETONES,URINE NEGATIVE (NEGATIVE); LEUKOCYTE ESTERASE ,URINE NEGATIVE (NEGATIVE); NITRITE,URINE NEGATIVE (NEGATIVE); PH,URINE 6.5 (4.5-8.0); PROTEIN,URINE NEGATIVE (NEGATIVE); UROBILINOGEN,URINE NORMAL MG/DL (0.0-1.0)
--- NOTE | 2019-03-25 21:37 | NUR ---
ER Nurse Note: Spoke to David in radiology; maranda [employer] was contacted. Pt informed. X-ray and CT scan unable to be done d/t pt weight. Pt stable, no signs of distress. Will continue to montior.
[2019-03-25 21:38] LABS: ANION GAP 5 mmol/L (5-15); BLOOD UREA NITROGEN 14 mg/dL (7-18); CARBON DIOXIDE 31 MMOL/L (21-32); CHLORIDE 101 MMOL/L (98-107); CREATININE 0.8 MG/DL (0.55-1.30); POTASSIUM 3.4 MMOL/L (3.5-5.1); SODIUM 137 MMOL/L (136-145)
[2019-03-25 21:42] LABS: ALANINE AMINOTRANSFERASE 22 U/L (12-78); ALBUMIN/GLOBULIN RATIO 0.7 (1.0-2.7); ALKALINE PHOSPHATASE 70 U/L (46-116); ASPARTATE AMINO TRANSFERASE 20 U/L (15-37); BILIRUBIN,TOTAL 0.2 MG/DL (0.2-1.0)
--- NOTE | 2019-03-25 22:18 | NUR ---
ER Nurse Note: Pt has agreed to US. US at bedside. Will continue to montior.
--- NOTE | 2019-03-25 23:08 | NUR ---
ER Nurse Note: US completed; TAI explained results to pt. Pt understood infromation. Pt stable, no signs of distress. All safety measures, will continue to montior.
--- NOTE | 2019-03-25 23:16 | Diagnostic Imaging Report ---
Indication:Lower abdominal and pelvic pain Technique: Grayscale and duplex Doppler imaging of the pelvis performed utilizing a transabdominal and endovaginal scan. Comparison: None Findings: Uterus is retroverted measures 6.5 x 7.5 x 5.9 cm. Endometrium is normal in thickness measuring 8 mm. In the left aspect of the uterus there is a calcified mass that is heterogeneous consistent with a fibroid measuring about 5 cm. Neither ovary is seen. There is no free fluid. IMPRESSION: Calcified uterine fibroid on the left side of the uterine body. Uterus is retroverted but otherwise unremarkable. Nonidentification of the ovaries
[2019-03-25] MEDS ORDERED: IBUPROFEN600 MG ORAL (23:21)
[2019-03-25 23:30] VITALS: BP 126/80
--- NOTE | 2019-03-25 23:30 | NUR ---
ER Nurse Note: Patient is cleared to be discharged per ERMD, pt is aox4, on room air, with stable vital signs. Pt was given dc and prescription instructions. Instructed pt to follow up with primary care physcian within one week. Pt was able to verbalize understanding. Pt id band and iv site removed without complications; site clean and bandaged. Pt took all belongings.
== END 2019-03-25 23:30 | disposition home or self-care (01) ==
LOC: EMR 20:45
DX: R10.31 Right lower quadrant pain (principal); E66.01 Morbid (severe) obesity due to excess calories; Z68.43 Body mass index [BMI] 50.0-59.9, adult; E11.9 Type 2 diabetes mellitus without complications; Z88.2 Allergy status to sulfonamides; I11.9 Hypertensive heart disease without heart failure; I25.10 Atherosclerotic heart disease of native coronary artery without angina pectoris; Z99.3 Dependence on wheelchair; D25.9 Leiomyoma of uterus, unspecified
CPT/HCPCS: 36415; 76830; 76856; 80053; 81003; 83036; 83690; 85025; 99284

== ENCOUNTER → 2019-05-27 | Outpatient (CLI) | payer MEDICARE, OTHER ==
--- NOTE | 2019-05-27 16:25 | Diagnostic Imaging Report ---
Indication: Abdominal pain Technique: Ashley-scale and duplex images of the upper abdomen were obtained Comparison: none Findings: Gallbladder is filled with stones. No wall thickening or pericholecystic fluid. Sonographic Hahn's sign is negative. Common bile duct measures 5 mm in diameter. No intrahepatic biliary ductal dilatation. Liver demonstrates diffusely increased echogenicity, consistent with diffuse hepatocellular disease, most likely fatty change. It is enlarged Portal vein and hepatic veins are patent. Pancreas is obscured by bowel gas. Spleen is unremarkable. Left kidney measures 11.9 cm in length. Right kidney measures 10.3 cm length. Both kidneys demonstrate normal echogenicity. There is no hydronephrosis. The left kidney demonstrates a 4.2 cm parapelvic cyst. . Abdominal aorta is obscured by bowel gas . Impression: Cholelithiasis. Negative for dilated bile ducts Liver is enlarged. It demonstrates diffusely increased echogenicity, consistent with diffuse hepatocellular disease, most likely fatty change. Nonvisualization of the pancreas and abdominal aorta Incidental finding left renal parapelvic cyst
== END | disposition home or self-care (01) ==
LOC: ULS 13:31
DX: R10.9 Unspecified abdominal pain (principal); K80.20 Calculus of gallbladder without cholecystitis without obstruction; R16.0 Hepatomegaly, not elsewhere classified; N28.1 Cyst of kidney, acquired
CPT/HCPCS: 76700

== ENCOUNTER 2019-06-23 16:20 | Inpatient (IN) | payer MEDICARE, OTHER ==
[~2019-06-23] VITALS: Ht 185.4 cm; Wt 188.9 kg
[2019-06-23 17:00] VITALS: BP 133/72
--- NOTE | 2019-06-23 17:00 | NUR ---
ED Nurse Note: Patient was advised by Dr. Jones and Dr. Morris to come into ED d/t possible kidney stones. Patient AxO x 4, no s/s of acute distress. Ultrasound at bedside.
[2019-06-23] MEDS ORDERED: Hydromorphone 0.5mg/0.5ml inj IVP ONE (17:30)
--- NOTE | 2019-06-23 17:33 | Emergency Room Report ---
History of Present Illness General Chief Complaint: Pain Source: Patient Present Illness HPI 58-year-old female, history of hypertension history of blood clots presents with right upper quadrant pain that has been ongoing for the past few weeks, acutely worsening over the past couple days, patient with a history of gallstones, pain is aggravated with eating alleviated with rest, severity is moderate, intermittent sharp characterization, no fevers no chills no chest pain no shortness of breath patient presents for evaluation Allergies: Coded Allergies: SULFA (SULFONAMIDE ANTIBIOTICS) (Unverified Allergy, Unknown, 05/02/15) allergy history per Dr. Jones Patient History Past Medical History: see triage record Last Menstrual Period: na Reviewed Nursing Documentation: PMH: Agreed; PSxH: Agreed Nursing Documentation-PMH Past Medical History: No History, Except For Hx Cardiac Problems: Yes - DVT Hx Hypertension: Yes Hx Asthma: Yes Hx Diabetes: No Hx Cancer: No - - Hx Gastrointestinal Problems: Yes - GI bleeding Hx Neurological Problems: No Hx Cerebrovascular Accident: No - CELLULITIS LOWER ABD AND BI-LAT LEGS Review of Systems All Other Systems: negative except mentioned in HPI Physical Exam Vital Signs Date Time Temp Pulse Resp B/P (MAP) Pulse Ox O2 Delivery O2 Flow Rate FiO2 06/23/19 16:53 97.5 77 20 133/72 (92) 95 Room Air Sp02 EP Interpretation: reviewed, normal General Appearance: well appearing, no apparent distress, alert Head: normocephalic, atraumatic Eyes: bilateral eye PERRL, bilateral eye EOMI ENT: uvula midline, moist mucus membranes Neck: supple, thyroid normal, supple/symm/no masses Respiratory: lungs clear, no respiratory distress, no retraction, no accessory muscle use Cardiovascular #1: normal peripheral pulses, regular rate, rhythm, no edema, no gallop, no murmur Gastrointestinal: soft, no guarding, no rebound, tenderness - Right upper quadrant tenderness no rebound no guarding Musculoskeletal: normal inspection Neurologic: alert, oriented x3 Psychiatric: mood/affect normal Skin: no rash, warm/dry Medical Decision Making Diagnostic Impression: Primary Impression: Cholelithiasis Qualified Codes: K80.80 - Other cholelithiasis without obstruction ER Course 58-year-old female presents with right upper quadrant pain concerning for possible cholecystitis, versus symptomatic cholelithiasis Pain control, plan for admission Surgeon will perform cholecystectomy tomorrow Patient admitted to [facility] Laboratory Tests Test 06/23/19 19:25 White Blood Count 12.0 K/UL (4.8-10.8) H Red Blood Count 4.20 M/UL (4.20-5.40) Hemoglobin 10.5 G/DL (12.0-16.0) L Hematocrit 35.6 % (37.0-47.0) L Mean Corpuscular Volume 85 FL (80-99) Mean Corpuscular Hemoglobin 25.0 PG (27.0-31.0) L Mean Corpuscular Hemoglobin Concent 29.5 G/DL (32.0-36.0) L Red Cell Distribution Width 15.1 % (11.6-14.8) H Platelet Count 276 K/UL (150-450) Mean Platelet Volume 6.5 FL (6.5-10.1) Neutrophils (%) (Auto) 76.0 % (45.0-75.0) H Lymphocytes (%) (Auto) 15.7 % (20.0-45.0) L Monocytes (%) (Auto) 5.5 % (1.0-10.0) Eosinophils (%) (Auto) 1.5 % (0.0-3.0) Basophils (%) (Auto) 1.4 % (0.0-2.0) Sodium Level 142 MMOL/L (136-145) Potassium Level 3.7 MMOL/L (3.5-5.1) Chloride Level 105 MMOL/L (98-107) Carbon Dioxide Level 32 MMOL/L (21-32) Anion Gap 5 mmol/L (5-15) Blood Urea Nitrogen 9 mg/dL (7-18) Creatinine 0.8 MG/DL (0.55-1.30) Estimate Glomerular Filtration Rate > 60 mL/min (>60) Glucose Level 92 MG/DL (74-106) Calcium Level 8.7 MG/DL (8.5-10.1) Total Bilirubin 0.2 MG/DL (0.2-1.0) Aspartate Amino Transferase (AST) 15 U/L (15-37) Alanine Aminotransferase (ALT) 23 U/L (12-78) Alkaline Phosphatase 80 U/L (46-116) Total Protein 7.7 G/DL (6.4-8.2) Albumin 3.0 G/DL (3.4-5.0) L Globulin 4.7 g/dL Albumin/Globulin Ratio 0.6 (1.0-2.7) L Lipase 139 U/L (73-393) EKG Diagnostic Results EKG Time: 18:55 EP Interpretation: NSR, rate 70, QTc 444, no acute ST elevations, left axis deviation Rhythm Strip Diag. Results Rhythm Strip Time: 20:15 EP Interpretation: yes Rate: 72 Rhythm: NSR, no PVC's, no ectopy CT/MRI/US Diagnostic Results CT/MRI/US Diagnostic Results : Impression Procedure: US ABD Complete US ABDOMEN: Gallbladder distended with stones with posterior shadowing. Mild gallbladder wall thickening. Sonographic Hahn's sign is present. Findings are suggestive of acute cholecystitis. Please confirm clinically. Hepatic steatosis suggested. Pancreas, proximal aorta to distal aorta, and visualized bowel gas are unremarkable. Cystic structure involving the left kidney at the upper pole measuring up to 3.2 cm is likely benign. No hydronephrosis. Spleen is not enlarged. <MYCVCSECTION> Communications: 06/23/19 20:53 Verify Receipt Verified receipt with Norberto in ER for Gareth Moreland MD on 06/23 20:53 (-08:00) Dictated By: Caleb Henley MD Electronically Signed By: Signed Date/Time CC: Last Vital Signs Date Time Temp Pulse Resp B/P (MAP) Pulse Ox O2 Delivery O2 Flow Rate FiO2 06/23/19 16:53 97.5 77 20 133/72 (92) 95 Room Air Disposition: ADMITTED INPATIENT Condition: Stable Prosper Keller MD Jun 23, 2019 17:33
--- NOTE | 2019-06-23 19:05 | NUR ---
ED Nurse Note: Report received from MARY King. Pt is stable at this time, VSS. No acute distress noted. Will continue to monitor.
--- NOTE | 2019-06-23 19:05 | NUR ---
ED Nurse Note: Handoff report given to Dulce Maria HERNANDEZ
[2019-06-23 19:53] LABS: BASOPHILS % (AUTO) 1.4 % (0.0-2.0); EOSINOPHILS % (AUTO) 1.5 % (0.0-3.0); HEMATOCRIT 35.6 % (37.0-47.0); HEMOGLOBIN 10.5 G/DL (12.0-16.0); LYMPHOCYTES % (AUTO) 15.7 % (20.0-45.0); MEAN CORPUSCULAR VOLUME 85 FL (80-99); MONOCYTES % (AUTO) 5.5 % (1.0-10.0); PLATELET COUNT 276 K/UL (150-450); RED CELL DISTRIBUTION WIDTH 15.1 % (11.6-14.8)
[2019-06-23] MEDS ORDERED: Hydromorphone 0.5mg/0.5ml inj ONE (20:00)
[2019-06-23] MEDS ORDERED: METFORMIN HCL500 M1 ORAL (20:00)
[2019-06-23] MEDS ORDERED: DAILY VITE1 EACH ORAL (20:00)
--- NOTE | 2019-06-23 20:05 | NUR ---
ED Nurse Note: Medications taken from patient and locked in med box in ER medication room.
[2019-06-23 20:19] LABS: ANION GAP 5 mmol/L (5-15); BLOOD UREA NITROGEN 9 mg/dL (7-18); CALCIUM 8.7 MG/DL (8.5-10.1); CARBON DIOXIDE 32 MMOL/L (21-32); CHLORIDE 105 MMOL/L (98-107); CREATININE 0.8 MG/DL (0.55-1.30); POTASSIUM 3.7 MMOL/L (3.5-5.1); SODIUM 142 MMOL/L (136-145)
--- NOTE | 2019-06-23 20:20 | NUR ---
ED Nurse Note: Report given to MARY Gamble.
[2019-06-23 20:23] LABS: ALANINE AMINOTRANSFERASE 23 U/L (12-78); ALBUMIN/GLOBULIN RATIO 0.6 (1.0-2.7); ALKALINE PHOSPHATASE 80 U/L (46-116); ASPARTATE AMINO TRANSFERASE 15 U/L (15-37); BILIRUBIN,TOTAL 0.2 MG/DL (0.2-1.0)
--- NOTE | 2019-06-23 20:30 | NUR ---
ED Nurse Note: Pt stable to transfer to med surg unit at this time. Pt taken to floor by tech via gurney. Pt VSS. No acute distress noted. IV RAC patent and intact. Pt belongings sent with pt.
--- NOTE | 2019-06-23 20:32 | NUR ---
NURSE NOTES: Patient arrived on a gurney from ER. Patient a/a/o x 4, breathing unlabored on room air without distress. Verbalized pain controlled well after the pain medication given from ER. Previous pain scale 9/10, decreased to 7/10 at this time. IV noted on right antecubital intact and patent. Skin intact at this time. Bilateral lower extremities swollen. Oriented to unit and room. Belongings confirmed with the patient. Bed placed at the lowest with alarm, brake, and side rails up for safety. Call light placed within reach. Will continue to monitor the patient.
--- NOTE | 2019-06-23 20:40 | Diagnostic Imaging Report ---
Indication: Abdominal pain Technique: Ashley-scale and duplex images of the upper abdomen were obtained Comparison: 05/27/2019 Findings: Exam is limited due to patient body habitus. Gallbladder is is difficult to visualize, grossly appears filled with stones. Gallbladder wall is thickened, measuring up to 8 mm thick. Technologist reports positive sonographic Hahn's sign. Sonographic Hahn's sign is positive. Common bile duct measures 5 mm in diameter. No intrahepatic biliary ductal dilatation. Liver demonstrates diffusely increased echogenicity, consistent with diffuse hepatocellular disease, most likely fatty change. It is somewhat enlarged Portal vein and hepatic veins are patent. Pancreas is obscured by bowel gas. Spleen is unremarkable. Left kidney measures 12.5 cm in length. Right kidney measures 12.9 cm length. Both kidneys demonstrate normal echogenicity. There is no hydronephrosis. Left renal parapelvic cyst again demonstrated. . Abdominal aorta is obscured by bowel gas . Impression: Limited exam, as described Cholelithiasis, also previously reported gallbladder wall thickening and positive sonographic Hahn's sign raises concern for acute cholecystitis. Consider hepatobiliary scan for further evaluation as clinically indicated Enlarged fatty liver, also previously reported Note inability to visualize the pancreas and the abdominal aorta This agrees with the preliminary interpretation provided overnight by [facility] teleradiology service.
--- NOTE | 2019-06-23 21:17 | NUR ---
NURSE NOTES: Reached Dr. Holm's office for admission orders. Left a message. Waiting for a call back.
[2019-06-23] MEDS ORDERED: DiphenhydrAMINE 25mg Tab ORAL PRN (22:00)
[2019-06-23] MEDS ORDERED: Milk of Magnesia 30ml Ud ORAL PRN (22:00)
[2019-06-23] MEDS ORDERED: Albuterol/Ipratropium 3ml neb HHN PRN (22:00)
[2019-06-23] MEDS ORDERED: Zolpidem 5mg tab ORAL PRN (22:00)
[2019-06-23] MEDS ORDERED: HYDROmorphone 1mg/ml Carpuject IVP PRN (22:00)
[2019-06-23] MEDS: Enoxaparin 40mg Inj SUBQ SCH (23:15)
[2019-06-24] VITALS (17 sets, daily range): BP systolic 110–163; BP diastolic 58–96
[2019-06-24 02:07] LABS: APPEARANCE,URINE CLEAR; BILIRUBIN, URINE NEGATIVE (NEGATIVE); GLUCOSE, URINE (UA) NEGATIVE (NEGATIVE); KETONES,URINE NEGATIVE (NEGATIVE); LEUKOCYTE ESTERASE ,URINE NEGATIVE (NEGATIVE); NITRITE,URINE NEGATIVE (NEGATIVE); PH,URINE 7 (4.5-8.0); PROTEIN,URINE NEGATIVE (NEGATIVE); UROBILINOGEN,URINE 1 MG/DL (0.0-1.0)
[2019-06-24 02:09] LABS: COLOR,URINE YELLOW
[2019-06-24] MEDS: NovoLOG Insulin Flexpen SUBQ SCH ×4 (06:11→21:00)
--- NOTE | 2019-06-24 06:35 | NUR ---
NURSE NOTES: Seen patient with Dennis, wound care nurse. Planned to apply antifungal powder and abdominal pad under patient's multiple skinfolds to prevent possible skin breakdown.
--- NOTE | 2019-06-24 07:34 | NUR ---
HAND-OFF: Report given to MARY Churchill. Plan of care endorsed.
--- NOTE | 2019-06-24 07:35 | NUR ---
NURSE NOTES: Received patient in bed,asleep @ this time. Breathing is even and unlabored. Bed is in lowest position and locked. Patient is on NPO. Will continue plan of care.
[2019-06-24] MEDS ORDERED: Docusate 100mg cap ORAL SCH (09:00)
[2019-06-24] MEDS: Enoxaparin 40mg Inj SUBQ SCH ×2 (09:00→18:01)
[2019-06-24] MEDS: Furosemide 40mg tab ORAL SCH (09:00)
--- NOTE | 2019-06-24 09:40 | NUR ---
NURSE NOTES: Held Malcom and shyann per Dr. Damian.
--- NOTE | 2019-06-24 12:11 | Consultation ---
History of Present Illness General Date patient seen: Jun 24, 2019 Reason for Hospitalization: Pain Present Illness HPI 58-year-old female, history of hypertension and blood clots presents with right upper quadrant pain that has been ongoing for the past few weeks, acutely worsening over the past couple days and worsening since yesterday. Patient with a history of gallstones, pain is aggravated with eating and alleviated with rest, severity is moderate 8/10, intermittent sharp characterization, no fevers no chills no chest pain no shortness of breath patient presents for evaluation. Was seen prior in the office and planned to be scheduled for elective cholecystectomy but acutely worsening and came to ED yesterday for evaluation. Allergies: Coded Allergies: SULFA (SULFONAMIDE ANTIBIOTICS) (Unverified Allergy, Unknown, 05/02/15) allergy history per Dr. Jones Medication History Scheduled Apixaban (Eliquis), 5 MG PO BID, (Reported) Benazepril Hcl* (Benazepril Hcl*), 20 MG ORAL DAILY, (Reported) Docusate Sodium* (Colace*), 100 MG ORAL TWICE A DAY, (Reported) Febuxostat (Uloric), 40 MG ORAL DAILY, (Reported) Furosemide* (Lasix*), 40 MG ORAL DAILY Hydrochlorothiazide* (Hydrochlorothiazide*), 25 MG ORAL DAILY, (Reported) Ibuprofen* (Motrin*), 600 MG ORAL THREE TIMES A DAY Liraglutide (Saxenda), 3 MG SQ DAILY, (Reported) Metformin Hcl* (Metformin Hcl*), 500 MG ORAL TWICE A DAY, (Reported) Multivitamin (Daily Mario), 1 TAB ORAL DAILY, (Reported) Multivitamin (Daily Mario), 1 TAB ORAL DAILY, (Reported) Scheduled PRN Acetaminophen With Codeine (T#3) (Tylenol With Codeine #3 Tablet), 1 TAB ORAL Q4H PRN for For Pain, (Reported) Hydrocodone Bit/Acetaminophen 7.5-300 Mg Tabl (Vicodin Es 7.5-300 Mg Tablet), 1 TAB ORAL Q4H PRN for For Pain, (Reported) Patient History History Provided By: Patient, Medical Record, PMD Healthcare decision maker Resuscitation status Full Code Advanced Directive on File No Past Medical/Surgical History Past Medical/Surgical History: (1) Bilateral cellulitis of lower leg (2) Post-menopausal bleeding (3) DVT, bilateral lower limbs (4) Bilateral lower leg cellulitis (5) lives on own at home (6) Acute blood loss anemia (7) Vaginal bleeding (8) Acute DVT of LLE (9) Hypokalemia (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 (11) Thrush (12) Back pain (13) Diarrhea (14) Flank pain (15) Leukocytosis (16) Leukocytosis (17) Hypoalbuminemia (18) Sepsis (19) Rectal bleeding (20) Hypertension (21) Obesity (22) Chronic pain (23) Muscle ache (24) Cellulitis, leg (25) Cellulitis, leg (26) Clostridium difficile colitis (27) ACS (acute coronary syndrome) (28) Factor V Leiden (29) Shoulder pain, right (30) Cellulitis of right leg (31) Cellulitis of right leg (32) Flank pain, acute (33) Injury of lower extremity (34) Factor 5 Leiden mutation, heterozygous (35) Poor intravenous access (36) DVT, recurrent, lower extremity, acute and chronic (37) abdominal wall swelling (38) leg pain (39) probable abscess (40) Venous stasis (41) lateral posterior left leg superficial skin breakdown ulcer (42) Left leg cellulitis (43) Left leg cellulitis (44) Anemia (45) Cellulitis (46) Chronic wound of extremity (47) Morbid obesity (48) Cough (49) HTN (hypertension) (50) Hypokalemia (51) Gout (52) SOB (shortness of breath) (53) Pneumonitis (54) Deep vein thrombosis (DVT) of left lower extremity (55) Morbid obesity (56) Cholelithiasis Family History Family History: Patient reports no known family medical history. Review of Systems Review of Symptoms General ROS: no weight loss or fever Psychological ROS: no depression or mood changes, no memory loss Ophthalmic ROS: no visual changes or eye irritation ENT ROS: no nasal congestion, hearing loss, dizziness Allergy and Immunology ROS: no allergic symptoms or urticaria Hematological and Lymphatic ROS: no swollen glands, unusual bleeding or bruising Endocrine ROS: no polyuria, polydipsia, weight changes, temperature intolerance Respiratory ROS: no cough, shortness of breath, or wheezing Cardiovascular ROS: no chest pain or dyspnea on exertion Gastrointestinal ROS: abdominal pain, no bright red blood in stool. Musculoskeletal ROS: no myalgias or arthralgias Neurological ROS: no TIA or stroke symptoms Dermatological ROS: no new or changing skin lesions, rashes or pruritis Physical Exam Physical Exam General appearance: alert, cooperative, no distress, appears stated age Head: Normocephalic, without obvious abnormality, atraumatic Eyes: conjunctivae/corneas clear. PERRL, EOM's intact. Fundi benign Throat: Lips, mucosa, and tongue normal. Teeth and gums normal Neck: supple, symmetrical, trachea midline, no adenopathy, thyroid: not enlarged, symmetric, no tenderness/mass/nodules, no carotid bruit and no JVD Lungs: clear to auscultation bilaterally Heart: regular rate and rhythm, S1, S2 normal, no murmur, click, rub or gallop Abdomen: soft, RUQ tender. Bowel sounds normal. No masses, no organomegaly Extremities: extremities normal, atraumatic, no cyanosis or edema Pulses: 2+ and symmetric Skin: Skin color, texture, turgor normal. No rashes or lesions Neurologic: Grossly normal Last 24 Hour Vital Signs Date Time Temp Pulse Resp B/P (MAP) Pulse Ox O2 Delivery O2 Flow Rate FiO2 06/24/19 09:00 Room Air 06/24/19 08:00 98.2 78 19 123/81 (95) 97 06/24/19 04:00 97.9 71 12 142/85 (104) 95 06/24/19 00:00 97.7 74 20 110/95 (100) 96 06/23/19 21:00 Room Air 06/23/19 20:45 Room Air 06/23/19 20:31 97.5 06/23/19 20:30 97.5 69 18 110/56 98 Room Air 06/23/19 17:00 97.5 84 20 133/72 95 Room Air 06/23/19 16:53 97.5 77 20 133/72 (92) 95 Room Air Intake and Output 06/23/19 06/24/19 19:00 07:00 Intake Total 0 ml 1050 ml Output Total 300 ml Balance 0 ml 750 ml Intake Oral 0 ml IV Total 1050 ml Output Urine Total 300 ml # Voids 1 Laboratory Tests Test 06/23/19 19:25 06/24/19 01:40 06/24/19 05:35 White Blood Count 12.0 K/UL (4.8-10.8) H Red Blood Count 4.20 M/UL (4.20-5.40) Hemoglobin 10.5 G/DL (12.0-16.0) L Hematocrit 35.6 % (37.0-47.0) L Mean Corpuscular Volume 85 FL (80-99) Mean Corpuscular Hemoglobin 25.0 PG (27.0-31.0) L Mean Corpuscular Hemoglobin Concent 29.5 G/DL (32.0-36.0) L Red Cell Distribution Width 15.1 % (11.6-14.8) H Platelet Count 276 K/UL (150-450) Mean Platelet Volume 6.5 FL (6.5-10.1) Neutrophils (%) (Auto) 76.0 % (45.0-75.0) H Lymphocytes (%) (Auto) 15.7 % (20.0-45.0) L Monocytes (%) (Auto) 5.5 % (1.0-10.0) Eosinophils (%) (Auto) 1.5 % (0.0-3.0) Basophils (%) (Auto) 1.4 % (0.0-2.0) Sodium Level 142 MMOL/L (136-145) Potassium Level 3.7 MMOL/L (3.5-5.1) Chloride Level 105 MMOL/L (98-107) Carbon Dioxide Level 32 MMOL/L (21-32) Anion Gap 5 mmol/L (5-15) Blood Urea Nitrogen 9 mg/dL (7-18) Creatinine 0.8 MG/DL (0.55-1.30) Estimat Glomerular Filtration Rate > 60 mL/min (>60) Glucose Level 92 MG/DL (74-106) Calcium Level 8.7 MG/DL (8.5-10.1) Total Bilirubin 0.2 MG/DL (0.2-1.0) Aspartate Amino Transf (AST/SGOT) 15 U/L (15-37) Alanine Aminotransferase (ALT/SGPT) 23 U/L (12-78) Alkaline Phosphatase 80 U/L (46-116) Total Protein 7.7 G/DL (6.4-8.2) Albumin 3.0 G/DL (3.4-5.0) L Globulin 4.7 g/dL Albumin/Globulin Ratio 0.6 (1.0-2.7) L Lipase 139 U/L (73-393) Urine Color Yellow Urine Appearance Clear Urine pH 7 (4.5-8.0) Urine Specific [place] 1.010 (1.005-1.035) Urine Protein Negative (NEGATIVE) Urine Glucose (UA) Negative (NEGATIVE) Urine Ketones Negative (NEGATIVE) Urine Blood Negative (NEGATIVE) Urine Nitrite Negative (NEGATIVE) Urine Bilirubin Negative (NEGATIVE) Urine Urobilinogen 1 MG/DL (0.0-1.0) H Urine Leukocyte Esterase Negative (NEGATIVE) Hemoglobin A1c 6.0 % (4.3-6.0) Height (Feet): 6 Height (Inches): 1.00 Weight (Pounds): 415 Medications Current Medications Medications (Trade) Dose Ordered Sig/Key Route PRN Reason Start Time Stop Time Status Last Admin Dose Admin Acetaminophen (Tylenol) 650 mg Q4H PRN ORAL Mild Pain (Pain Scale 1-3) 06/23/19 22:00 07/23/19 21:59 Acetaminophen (Tylenol) 650 mg Q4H PRN ORAL fever 06/23/19 22:00 07/23/19 21:59 Albuterol/ Ipratropium (Albuterol/ Ipratropium) 3 ml Q4HR PRN HHN Shortness of Breath 06/23/19 22:00 06/28/19 21:59 Dextrose (Dextrose 50%) 25 ml Q30M PRN IV Hypoglycemia 06/23/19 22:00 07/23/19 21:59 Dextrose (Dextrose 50%) 50 ml Q30M PRN IV Hypoglycemia 06/23/19 22:00 07/23/19 21:59 Diphenhydramine HCl (Benadryl) 25 mg Q6H PRN ORAL Itching/Pruritis 06/23/19 22:00 07/23/19 21:59 Docusate Sodium (Colace) 100 mg EVERY 12 HOURS ORAL 06/24/19 09:00 07/24/19 08:59 Enoxaparin Sodium (Lovenox) 40 mg BID SUBQ 06/23/19 23:00 07/23/19 22:59 06/23/19 23:15 Furosemide (Lasix) 40 mg DAILY ORAL 06/24/19 09:00 07/24/19 08:59 Hydromorphone HCl (Dilaudid) 1 mg Q4HR PRN IVP Moderate Pain (Pain Scale 4-6) 06/23/19 22:00 06/30/19 21:59 06/24/19 11:41 Hydromorphone HCl (Dilaudid) 2 mg Q4HR PRN IVP Severe Pain (Pain Scale 7-10) 06/23/19 22:00 06/30/19 21:59 06/24/19 00:08 Insulin Aspart (NovoLOG) BEFORE MEALS AND HS SUBQ 06/24/19 06:30 07/24/19 06:29 Magnesium Hydroxide (Mom) 30 ml HSPRN PRN ORAL Constipation 06/23/19 22:00 07/23/19 21:59 Sodium Chloride 1,000 ml @ 150 mls/hr Q6H40M IVLG 06/23/19 22:54 07/23/19 22:53 06/24/19 11:41 Zolpidem Tartrate (Ambien) 5 mg HSPRN PRN ORAL Insomnia 06/23/19 22:00 06/30/19 21:59 Assessment/Plan Problem List: (1) Acute cholecystitis Assessment & Plan: 58F with known history of symptomatic cholelithiasis presented with acute cholecystitis. afebrile, HD stable, leukocytosis imaging with distended GB and pericholecystic fluid exam with RUQ tenderness +[place] npo iv fluid iv abx to OR for lap vs open cholecystectomy consent thank you ICD Codes: K81.0 - Acute cholecystitis SNOMED: [id number] Chuy Damian Jun 24, 2019 12:11
--- NOTE | 2019-06-24 12:12 | Pre-Procedure Note/Attestation ---
Pre-Procedure Note/Attestation Complete Prior to Procedure Planned Procedure: not applicable Procedure Narrative: laparoscopic cholecystectomy possible open Indications for Procedure Pre-Operative Diagnosis: acute cholecystitis Attestation I attest that I discussed the nature of the procedure; its benefits; risks and complications; and alternatives (and the risks and benefits of such alternatives ), prior to the procedure, with the patient (or the patient's legal livestock sales representative). I attest that, if there was a reasonable possibility of needing a blood transfusion, the patient (or the patient's legal livestock sales representative) was given the [facility] standardized written summary, pursuant to the Brad Josy Blood Safety Act ([place] Health and Safety Code # 1645, as amended). I attest that I re-evaluated the patient just prior to the surgery and that there has been no change in the patient's H&P, except as documented below: Chuy Damian Jun 24, 2019 12:12
--- NOTE | 2019-06-24 12:48 | NUR ---
NURSE NOTES: Patient consented to the procedure and blood transfusion. Dr. Damian explained about the procedure prior to consent to the procedure. Pre-op check list done.Patient is on NPO.
--- NOTE | 2019-06-24 13:10 | NUR ---
NURSE NOTES: patient is off the unit for surgery in stable condition. IV is intact, no jewelry.All her belongings is kept it safe.
[2019-06-24 13:30] LABS: INR 0.9 (0.9-1.1)
[2019-06-24] MEDS ORDERED: Iothalamate Meglumine 60% 50ML INJ ONE (13:44)
[2019-06-24] MEDS ORDERED: LR 1000ml 1,000 ML IVLG SCH (13:46)
[2019-06-24] MEDS ORDERED: Lidocaine 1% MPF 10mg/ml 5ml ONE (13:51)
[2019-06-24] MEDS ORDERED: Sodium Chloride 10ml vial INJ ONE (13:51)
[2019-06-24] MEDS ORDERED: fentaNYL 100 mcg/2 mL IV ONE (13:54)
[2019-06-24] MEDS ORDERED: Midazolam 2mg/2ml Inj ONE (13:54)
[2019-06-24] MEDS ORDERED: Ketamine 500mg/10ml vial ONE (13:56)
--- NOTE | 2019-06-24 13:59 | Anethesia Preoperative Eval ---
Anesthesia Pre-op PMH/ROS General Date of Evaluation: Jun 24, 2019 Time of Evaluation: 13:49 Anesthesiologist: Alexandra ASA Score: ASA 3 Mallampati Score Class I : Soft palate, uvula, fauces, pillars visible Class II: Soft palate, uvula, fauces visible Class III: Soft palate, base of uvula visible Class IV: Only hard plate visible Mallampati Classification: Class II Surgeon: Afshin Diagnosis: Cholelithiasis Surgical Procedure: Laparoscopic Cholecystectomy Anesthesia History: none Family History: no anesthesia problems Allergies: Coded Allergies: SULFA (SULFONAMIDE ANTIBIOTICS) (Unverified Allergy, Unknown, 05/02/15) allergy history per Dr. Jones Medications: see eMAR Patient NPO?: Yes NPO Date: Jun 23, 2019 NPO Time: 0000 Past Medical History Cardiovascular: Reports: HTN, CAD Pulmonary: Reports: asthma Neurologic/Psychiatric: Reports: CVA Endocrine: Reports: DM Hematology/Immune: Reports: anemia, DVT Musculoskeletal/Integumentary: Reports: edema, other - Cellulitis Lower Legs Other: obesity - Morbid BMI 57 Anesthesia Pre-op Phys. Exam Physician Exam Last Vital Signs Date Time Temp Pulse Resp B/P (MAP) Pulse Ox O2 Delivery O2 Flow Rate FiO2 06/24/19 12:00 98.6 73 20 153/96 (115) 97 06/24/19 09:00 Room Air Constitutional: NAD Neurologic: CN 2-12 intact Cardiovascular: RRR Respiratory: CTA Gastrointestinal: S/NT/ND Airway Exam Mallampati Score: Class II MO: full ROM: limited Teeth: missing Anesthesia Pre-op A/P Labs Hematology Test 06/23/19 19:25 White Blood Count 12.0 K/UL (4.8-10.8) H Red Blood Count 4.20 M/UL (4.20-5.40) Hemoglobin 10.5 G/DL (12.0-16.0) L Hematocrit 35.6 % (37.0-47.0) L Mean Corpuscular Volume 85 FL (80-99) Mean Corpuscular Hemoglobin 25.0 PG (27.0-31.0) L Mean Corpuscular Hemoglobin Concent 29.5 G/DL (32.0-36.0) L Red Cell Distribution Width 15.1 % (11.6-14.8) H Platelet Count 276 K/UL (150-450) Mean Platelet Volume 6.5 FL (6.5-10.1) Neutrophils (%) (Auto) 76.0 % (45.0-75.0) H Lymphocytes (%) (Auto) 15.7 % (20.0-45.0) L Monocytes (%) (Auto) 5.5 % (1.0-10.0) Eosinophils (%) (Auto) 1.5 % (0.0-3.0) Basophils (%) (Auto) 1.4 % (0.0-2.0) Coagulation Test 06/24/19 12:45 Prothrombin Time Pending Prothromb Time International Ratio Pending Activated Partial Thromboplast Time Pending Chemistry Test 06/23/19 19:25 06/24/19 05:35 Sodium Level 142 MMOL/L (136-145) Potassium Level 3.7 MMOL/L (3.5-5.1) Chloride Level 105 MMOL/L (98-107) Carbon Dioxide Level 32 MMOL/L (21-32) Anion Gap 5 mmol/L (5-15) Blood Urea Nitrogen 9 mg/dL (7-18) Creatinine 0.8 MG/DL (0.55-1.30) Estimat Glomerular Filtration Rate > 60 mL/min (>60) Glucose Level 92 MG/DL (74-106) Calcium Level 8.7 MG/DL (8.5-10.1) Total Bilirubin 0.2 MG/DL (0.2-1.0) Aspartate Amino Transf (AST/SGOT) 15 U/L (15-37) Alanine Aminotransferase (ALT/SGPT) 23 U/L (12-78) Alkaline Phosphatase 80 U/L (46-116) Total Protein 7.7 G/DL (6.4-8.2) Albumin 3.0 G/DL (3.4-5.0) L Globulin 4.7 g/dL Albumin/Globulin Ratio 0.6 (1.0-2.7) L Lipase 139 U/L (73-393) Hemoglobin A1c 6.0 % (4.3-6.0) Risk Assessment & Plan Assessment: ASA 3 Plan: GA, SED, GlideScope Go Status Change Before Surgery: No Pre-Antibiotics Dru Grams Ancef IV Given Within 1 Hr of Incision: Yes Time Given: 14:11 Morris,David MD Jun 24, 2019 13:59
[2019-06-24] MEDS ORDERED: Sterile Water Irrig 1000ml IRRIG ONE (14:00)
[2019-06-24] MEDS ORDERED: Propofol 200mg/20ml IV ONE (14:00)
[2019-06-24] MEDS ORDERED: HYDROcodone/Acetamin 5/325 tab ORAL PRN (14:00)
[2019-06-24] MEDS ORDERED: Rocuronium Bromide 50mg/5ml Inj IV ONE (14:00)
[2019-06-24] MEDS ORDERED: Meperidine 25mg/0.5ml Inj (FOR RIGORS ONLY) IV PRN (14:00)
[2019-06-24] MEDS ORDERED: LR 1000ml ONE (14:00)
[2019-06-24] MEDS ORDERED: fentaNYL 100 mcg/2 mL IV PRN (14:00)
[2019-06-24] MEDS ORDERED: Labetalol 5mg/ml 20ml vial IV PRN (14:00)
[2019-06-24] MEDS ORDERED: oxyCODONE HCL/Acetaminophen 5/325mg ORAL PRN (14:00)
[2019-06-24] MEDS ORDERED: Metoclopramide 10mg/2ml Inj IVP PRN (14:00)
[2019-06-24] MEDS ORDERED: LORazepam Inj 2mg/ml 1ml IV PRN (14:00)
[2019-06-24] MEDS ORDERED: Atropine Sulfate 0.4mg/ml inj IVP PRN (14:00)
[2019-06-24] MEDS ORDERED: Acetaminophen (Non formulary) 100 ML IV ONE (14:00)
[2019-06-24] MEDS ORDERED: Midazolam 2mg/2ml Inj IVP PRN (14:00)
[2019-06-24] MEDS ORDERED: HYDROcodone/Acetamin 7.5/325 tab ORAL PRN (14:00)
[2019-06-24] MEDS ORDERED: DiphenhydrAMINE 50mg/ml Inj IVP PRN (14:00)
[2019-06-24] MEDS ORDERED: Neostigmine 1mg/ml 10ml Inj ONE (14:00)
[2019-06-24] MEDS ORDERED: NS Irrig 1000ml IRRIG ONE ×2 (14:21→14:42)
[2019-06-24] MEDS ORDERED: Metoprolol Tartrate 5mg/5ml Inj ONE (14:25)
--- NOTE | 2019-06-24 14:43 | NUR ---
CASE MANAGEMENT:INITIAL REVIEW 58 YR OLD FEMALE PRESENTED TO ER IN WHEELCHAIR FROM HOME CC;PAIN SI; CHOLELITHIASIS 97.5 84 20 110/56 95% ON RA WBC 12.0 ABD US - Gallbladder distended with stones with posterior shadowing. Findings are suggestive of acute cholecystitis. IS;ZOFRAN IV X1 DILAUDID IV X1 ADMITTED TO MED SURG MED SURG STATUS DCP; FROM HOME
--- NOTE | 2019-06-24 15:00 | Immediate Post-Op Evaluation ---
Immediate Post-Op Evalulation Immediate Post-Op Evalulation Procedure: Laparoscopic Cholecystectomy Date of Evaluation: Jun 24, 2019 Time of Evaluation: 15:57 IV Fluids: 600 LR Blood Products: 0 Estimated Blood Loss: 50 Urinary Output: 0 Blood Pressure Systolic: 163 Blood Pressure Diastolic: 58 Pulse Rate: 71 Respiratory Rate: 16 O2 Sat by Pulse Oximetry: 99 Temperature (Fahrenheit): 97.4 Pain Score (1-10): 2 Nausea: No Vomiting: No Complications 0 Patient Status: awake, reacts, patent, extubated, none Hydration Status: adequate Dru Grams Ancef IV Given Within 1 Hr of Incision: Yes Time Given: 14:11 David Morris MD Jun 24, 2019 15:00
[2019-06-24] MEDS ORDERED: Glycopyrrolate 0.2mg/ml 1ml Vial ONE (15:11)
[2019-06-24] MEDS ORDERED: Sugammadex Sodium 200mg/2ml vial IV ONE (15:17)
--- NOTE | 2019-06-24 15:20 | History and Physical ---
History of Present Illness General Date patient seen: Jun 24, 2019 Reason for Hospitalization: Pain Present Illness HPI 58-year-old female, WITH MORBID OBESITY, history of hypertension AND blood clots presents with right upper quadrant pain that has been ongoing for the past few weeks, acutely worsening over the past couple days, patient with a history of gallstones, pain is aggravated with eating alleviated with rest, severity is moderate, intermittent sharp characterization, no fevers no chills no chest pain no shortness of breath patient presents for evaluation. Was seen prior in the office of Dr. Damian and planned to be scheduled for elective cholecystectomy but acutely worsening and came to ED yesterday for evaluation. Past Medical History: OBESITY, HTN, GALLSTONES,DVT,cellulitis, venous stasis, DM2 Social history: denies toxic habits family history: Denies any illnesses in family Allergies: Coded Allergies: SULFA (SULFONAMIDE ANTIBIOTICS) (Unverified Allergy, Unknown, 05/02/15) allergy history per Dr. Jones Medication History Scheduled Apixaban (Eliquis), 5 MG PO BID, (Reported) Benazepril Hcl* (Benazepril Hcl*), 20 MG ORAL DAILY, (Reported) Docusate Sodium* (Colace*), 100 MG ORAL TWICE A DAY, (Reported) Febuxostat (Uloric), 40 MG ORAL DAILY, (Reported) Furosemide* (Lasix*), 40 MG ORAL DAILY Hydrochlorothiazide* (Hydrochlorothiazide*), 25 MG ORAL DAILY, (Reported) Ibuprofen* (Motrin*), 600 MG ORAL THREE TIMES A DAY Liraglutide (Saxenda), 3 MG SQ DAILY, (Reported) Metformin Hcl* (Metformin Hcl*), 500 MG ORAL TWICE A DAY, (Reported) Multivitamin (Daily Mario), 1 TAB ORAL DAILY, (Reported) Multivitamin (Daily Mario), 1 TAB ORAL DAILY, (Reported) Scheduled PRN Acetaminophen With Codeine (T#3) (Tylenol With Codeine #3 Tablet), 1 TAB ORAL Q4H PRN for For Pain, (Reported) Hydrocodone Bit/Acetaminophen 7.5-300 Mg Tabl (Vicodin Es 7.5-300 Mg Tablet), 1 TAB ORAL Q4H PRN for For Pain, (Reported) Patient History Healthcare decision maker Resuscitation status Full Code Advanced Directive on File No Family History Family History: Patient reports no known family medical history. Review of Systems Constitutional: Denies: no symptoms, see HPI, chills, sweats, fever, malaise, weakness, other Eye: Denies: no symptoms, see HPI, eye pain, blurred vision, tearing, double vision, nose pain, nose congestion, acuity changes, discharge, other ENT: Denies: no symptoms, see HPI, ear pain, ear discharge, nose pain, nose congestion, throat pain, throat swelling, mouth pain, hearing loss, nasal discharge, other Respiratory: Denies: no symptoms, see HPI, cough, orthopnea, shortness of breath, stridor, wheezing, ARTEAGA, sputum, other Cardiovascular: Denies: no symptoms, see HPI, chest pain, edema, palpitations, syncope, PND, other Gastrointestinal: Reports: abdominal pain Genitourinary: Denies: no symptoms, see HPI, discharge, dysuria, frequency, hematuria, pain, retention, incontinence, urgency, vag bleed/dc, other Musculoskeletal: Denies: no symptoms, see HPI, back pain, gout, joint pain, joint swelling, muscle pain, muscle stiffness, other Skin: Denies: no symptoms, see HPI, rash, change in color, change in hair/nails , dryness, lesions, other Psychiatric: Denies: no symptoms, see HPI, prior hx, anxiety, depressed feelings, emotional problems, SI, HI, hallucinations, other Neurological: Denies: no symptoms, see HPI, headache, numbness, paresthesia, seizure, tingling, tremors, focal weakness, syncope, dizziness, other Endocrine: Denies: no symptoms, see HPI, excessive sweating, flushing, intolerance to temperature, increased thirst, increased urine, unexplained weight loss, other Hematologic/Lymphatic: Denies: no symptoms, see HPI, anemia, blood clots, easy bleeding, easy bruising, swollen glands, diathesis, other Physical Exam General Appearance: WD/WN, no apparent distress, other - morbid obese Lines, tubes and drains: peripheral HEENT: normocephalic, atraumatic, anicteric, mucous membranes moist, PERRL, EOMI Neck: non-tender, normal alignment, supple Respiratory/Chest: chest wall non-tender, lungs clear, normal breath sounds, no respiratory distress, no accessory muscle use Cardiovascular/Chest: normal peripheral pulses, normal rate, regular rhythm, no gallop/murmur, no JVD Abdomen: normal bowel sounds, soft, tender - RUQ, +hahn sign , no guarding, no rebound, obese abdomen Extremities: normal range of motion, non-tender, no calf tenderness Skin Exam: warm/dry, other - bilatral venous stasis dermatitis Neurologic: window glass cutter off II-XII grossly normal, no motor/sensory deficits, alert, 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, responsive Musculoskeletal: normal muscle bulk Last 24 Hour Vital Signs Date Time Temp Pulse Resp B/P (MAP) Pulse Ox O2 Delivery O2 Flow Rate FiO2 06/24/19 12:00 98.6 73 20 153/96 (115) 97 06/24/19 09:00 Room Air 06/24/19 08:00 98.2 78 19 123/81 (95) 97 06/24/19 04:00 97.9 71 12 142/85 (104) 95 06/24/19 00:00 97.7 74 20 110/95 (100) 96 06/23/19 21:00 Room Air 06/23/19 20:45 Room Air 06/23/19 20:31 97.5 06/23/19 20:30 97.5 69 18 110/56 98 Room Air 06/23/19 17:00 97.5 84 20 133/72 95 Room Air 06/23/19 16:53 97.5 77 20 133/72 (92) 95 Room Air Intake and Output 06/23/19 06/24/19 19:00 07:00 Intake Total 0 ml 1200 ml Output Total 300 ml Balance 0 ml 900 ml Intake Oral 0 ml IV Total 1200 ml Output Urine Total 300 ml # Voids 1 Laboratory Tests Test 06/23/19 19:25 06/24/19 01:40 06/24/19 05:35 06/24/19 12:45 White Blood Count 12.0 K/UL (4.8-10.8) H Red Blood Count 4.20 M/UL (4.20-5.40) Hemoglobin 10.5 G/DL (12.0-16.0) L Hematocrit 35.6 % (37.0-47.0) L Mean Corpuscular Volume 85 FL (80-99) Mean Corpuscular Hemoglobin 25.0 PG (27.0-31.0) L Mean Corpuscular Hemoglobin Concent 29.5 G/DL (32.0-36.0) L Red Cell Distribution Width 15.1 % (11.6-14.8) H Platelet Count 276 K/UL (150-450) Mean Platelet Volume 6.5 FL (6.5-10.1) Neutrophils (%) (Auto) 76.0 % (45.0-75.0) H Lymphocytes (%) (Auto) 15.7 % (20.0-45.0) L Monocytes (%) (Auto) 5.5 % (1.0-10.0) Eosinophils (%) (Auto) 1.5 % (0.0-3.0) Basophils (%) (Auto) 1.4 % (0.0-2.0) Sodium Level 142 MMOL/L (136-145) Potassium Level 3.7 MMOL/L (3.5-5.1) Chloride Level 105 MMOL/L (98-107) Carbon Dioxide Level 32 MMOL/L (21-32) Anion Gap 5 mmol/L (5-15) Blood Urea Nitrogen 9 mg/dL (7-18) Creatinine 0.8 MG/DL (0.55-1.30) Estimat Glomerular Filtration Rate > 60 mL/min (>60) Glucose Level 92 MG/DL (74-106) Calcium Level 8.7 MG/DL (8.5-10.1) Total Bilirubin 0.2 MG/DL (0.2-1.0) Aspartate Amino Transf (AST/SGOT) 15 U/L (15-37) Alanine Aminotransferase (ALT/SGPT) 23 U/L (12-78) Alkaline Phosphatase 80 U/L (46-116) Total Protein 7.7 G/DL (6.4-8.2) Albumin 3.0 G/DL (3.4-5.0) L Globulin 4.7 g/dL Albumin/Globulin Ratio 0.6 (1.0-2.7) L Lipase 139 U/L (73-393) Urine Color Yellow Urine Appearance Clear Urine pH 7 (4.5-8.0) Urine Specific [place] 1.010 (1.005-1.035) Urine Protein Negative (NEGATIVE) Urine Glucose (UA) Negative (NEGATIVE) Urine Ketones Negative (NEGATIVE) Urine Blood Negative (NEGATIVE) Urine Nitrite Negative (NEGATIVE) Urine Bilirubin Negative (NEGATIVE) Urine Urobilinogen 1 MG/DL (0.0-1.0) H Urine Leukocyte Esterase Negative (NEGATIVE) Hemoglobin A1c 6.0 % (4.3-6.0) Prothrombin Time 10.1 SEC (9.30-11.50) Prothromb Time International Ratio 0.9 (0.9-1.1) Activated Partial Thromboplast Time 27 SEC (23-33) Height (Feet): 6 Height (Inches): 1.00 Weight (Pounds): 415 Medications Current Medications Medications (Trade) Dose Ordered Sig/Key Route PRN Reason Start Time Stop Time Status Last Admin Dose Admin Acetaminophen (Tylenol) 650 mg Q4H PRN ORAL Mild Pain (Pain Scale 1-3) 06/23/19 22:00 07/23/19 21:59 Acetaminophen (Tylenol) 650 mg Q4H PRN ORAL fever 06/23/19 22:00 07/23/19 21:59 Acetaminophen/ Hydrocodone Bitart ([place] 5/325) 1 tab Q1H PRN ORAL Mild Pain (Pain Scale 1-3) 06/24/19 14:00 06/24/19 21:00 Acetaminophen/ Hydrocodone Bitart ([place] 7.5/325) 1 tab Q1H PRN ORAL Moderate Pain (Pain Scale 4-6) 06/24/19 14:00 06/24/19 21:00 Al Hydroxide/Mg Hydroxide (Mylanta) 15 ml Q1H PRN ORAL gi upset 06/24/19 14:00 06/24/19 21:00 Albuterol/ Ipratropium (Albuterol/ Ipratropium) 3 ml Q4HR PRN HHN Shortness of Breath 06/23/19 22:00 06/28/19 21:59 Atropine Sulfate (Atropine 0.4mg/ ml) 0.5 mg Q5M PRN IVP HR<40 06/24/19 14:00 06/24/19 21:00 Dextrose (Dextrose 50%) 25 ml Q30M PRN IV Hypoglycemia 06/23/19 22:00 07/23/19 21:59 Dextrose (Dextrose 50%) 50 ml Q30M PRN IV Hypoglycemia 06/23/19 22:00 07/23/19 21:59 Diphenhydramine HCl (Benadryl) 25 mg Q15M PRN IVP Itching 06/24/19 14:00 06/24/19 21:00 Diphenhydramine HCl (Benadryl) 25 mg Q6H PRN ORAL Itching/Pruritis 06/23/19 22:00 07/23/19 21:59 Docusate Sodium (Colace) 100 mg EVERY 12 HOURS ORAL 06/24/19 09:00 07/24/19 08:59 Enoxaparin Sodium (Lovenox) 40 mg BID SUBQ 06/23/19 23:00 07/23/19 22:59 06/23/19 23:15 Fentanyl Citrate (Sublimaze 100 mcg/2 mL) 25 mcg Q10M PRN IV Moderate Pain (Pain Scale 4-6) 06/24/19 14:00 06/24/19 21:00 Furosemide (Lasix) 40 mg DAILY ORAL 06/24/19 09:00 07/24/19 08:59 Hydralazine HCl (Apresoline) 5 mg Q30M PRN IV SBP>160 / DBP>90 06/24/19 14:00 06/24/19 21:00 Hydromorphone HCl (Dilaudid) 0.5 mg Q15M PRN IVP Severe Pain (Pain Scale 7-10) 06/24/19 14:00 06/24/19 21:00 Hydromorphone HCl (Dilaudid) 1 mg Q4HR PRN IVP Moderate Pain (Pain Scale 4-6) 06/23/19 22:00 06/30/19 21:59 06/24/19 11:41 Hydromorphone HCl (Dilaudid) 2 mg Q4HR PRN IVP Severe Pain (Pain Scale 7-10) 06/23/19 22:00 06/30/19 21:59 06/24/19 00:08 Insulin Aspart (NovoLOG) BEFORE MEALS AND HS SUBQ 06/24/19 06:30 07/24/19 06:29 Labetalol HCl (Normodyne) 5 mg Q10M PRN IV SBP>160 / DBP>90 06/24/19 14:00 06/24/19 21:00 Lactated Ringer's 1,000 ml @ 10 mls/hr Q24H IVLG 06/24/19 13:46 06/24/19 15:45 Lorazepam (Ativan 2mg/ml 1ml) 1 mg Q15M PRN IV For Anxiety 06/24/19 14:00 06/24/19 21:00 Magnesium Hydroxide (Mom) 30 ml HSPRN PRN ORAL Constipation 06/23/19 22:00 07/23/19 21:59 Meperidine HCl (Demerol) 25 mg Q5M PRN IV SHIVERING.MAY REPEAT X 1 06/24/19 14:00 06/24/19 21:00 Metoclopramide HCl (Reglan) 10 mg Q1H PRN IVP Nausea & Vomiting 06/24/19 14:00 06/24/19 21:00 Midazolam HCl (Versed 2mg/2ml vial) 1 mg Q15M PRN IVP For Anxiety 06/24/19 14:00 06/24/19 21:00 Ondansetron HCl (Zofran) 4 mg Q1H PRN IVP Nausea & Vomiting 06/24/19 14:00 06/24/19 21:00 Oxycodone/ Acetaminophen (Percocet 5-325) 1 tab Q1H PRN ORAL Severe Pain (Pain Scale 7-10) 06/24/19 14:00 06/24/19 21:00 Sodium Chloride 1,000 ml @ 150 mls/hr Q6H40M IVLG 06/23/19 22:54 07/23/19 22:53 06/24/19 11:41 Zolpidem Tartrate (Ambien) 5 mg HSPRN PRN ORAL Insomnia 06/23/19 22:00 06/30/19 21:59 Objective Narrative EKG is personally interpreted by me: NSR, at 70, QTc 444, no acute ST-t changes, left axis deviation CT abdomen pelvis: Impression: Cholelithiasis, also previously reported gallbladder wall thickening and positive sonographic Hahn's sign raises concern for acute cholecystitis. Consider hepatobiliary scan for further evaluation as clinically indicated Enlarged fatty liver, also previously reported Note inability to visualize the pancreas and the abdominal aorta Assessment/Plan Problem List: (1) Acute cholecystitis ICD Codes: K81.0 - Acute cholecystitis SNOMED: 74971490 (2) DVT, bilateral lower limbs ICD Codes: I82.403 - Acute embolism and thrombosis of unspecified deep veins of lower extremity, bilateral SNOMED: 940578858, 341779323 (3) Factor 5 Leiden mutation, heterozygous ICD Codes: D68.8 - Factor 5 Leiden mutation, heterozygous SNOMED: 399728152 (4) Venous stasis ICD Codes: I87.8 - Other specified disorders of veins SNOMED: 17787081 (5) HTN (hypertension) ICD Codes: I10 - Essential (primary) hypertension SNOMED: 65155414 (6) Cholelithiasis ICD Codes: K80.20 - Calculus of gallbladder without cholecystitis without obstruction SNOMED: 179131824 Qualifiers: Qualified Codes: K80.80 - Other cholelithiasis without obstruction (7) Morbid obesity ICD Codes: E66.01 - Morbid (severe) obesity due to excess calories SNOMED: 386237111 (8) Gout ICD Codes: M10.9 - Gout, unspecified SNOMED: 42484382 (9) Diabetes type 2, controlled ICD Codes: E11.9 - Type 2 diabetes mellitus without complications SNOMED: 00495617, 518014045 Status: stable Assessment/Plan: 58-year-old female with history of cholelithiasis presented with acute worsening of her right upper quadrant abdominal pain, found to have acute cholecystitis #Acute cholecystitis IV antibiotics IV fluids General surgery consult for possible cholecystectomy N.p.o. Pain control #Hypertension Hold home hydrochlorothiazide and Lasix in anticipation of surgery Hydralazine as needed for SBP greater than 150 #Diabetes 2-controlled Hold home metformin and liraglutide Initiate insulin via sliding scale, check fingerstick blood glucose before meals and at midnight Check hemoglobin A1c #Morbid obesity Patient counseled on lifestyle changes and dietary modification #Gout Hold home Uloric for now #History of DVT on apixaban Hold apixaban in anticipation of surgery VT prophylaxis: Lovenox 40 mg subcu daily GI prophylaxis: Not indicated CODE STATUS full code I spent 70 minutes on this encounter, greater than 50% spent in counseling care coordination. 35 minutes in reviewing patient's medical records from previous hospitalizations. I spent an additional 30 minutes in counseling patient regarding lifestyle modifications and weight loss. Plan of care discussed with patient, ED physician and consultants. Plan of care discussed with Jese Marie M.D. Jun 24, 2019 15:20
[2019-06-24] MEDS: Hydromorphone 0.5mg/0.5ml inj IVP PRN ×2 (15:55→16:12)
--- NOTE | 2019-06-24 16:18 | Brief Operative Note ---
Immediate Post Operative Note Operative Note Pre-op Diagnosis: acute cholecystitis Procedure: lap conrad Post-op Diagnosis: same as pre-op Surgeon: bryce Anesthesiologist: lindsey Anesthesia: general, local Specimen: yes Complications: none Condition: stable Fluids: see records Estimated Blood Loss: minimal Drains: none Implant(s) used?: No Chuy Damian Jun 24, 2019 16:18
[2019-06-24] MEDS ORDERED: Sennosides 8.6mg tab ORAL PRN (16:30)
[2019-06-24] MEDS ORDERED: Morphine Sulfate 4mg/ml Inj (IV USE ONLY) IVP PRN (16:30)
[2019-06-24] MEDS ORDERED: HYDROcodone/Acetamin 10/325 tab ORAL PRN (16:30)
[2019-06-24] MEDS ORDERED: DiphenhydrAMINE 25mg Tab ORAL PRN (16:30)
[2019-06-24] MEDS ORDERED: Morphine Sulfate 2mg/ml Inj(IV/IM USE ONLY) IVP PRN ×2 (16:30)
[2019-06-24] MEDS ORDERED: Milk of Magnesia 30ml Ud ORAL PRN (16:30)
--- NOTE | 2019-06-24 17:20 | NUR ---
NURSE NOTES: Patient came back from surgery.Received report from [facility] PACU nurse. Patient is awake, alert and oriented x4. Not in respiratory/cardiac distress. 4 Lap Isabelle sites is with intact dressing lower abdomen and left upper dressings are with blood stain,no active bleeding noted. patient denies nausea/vomiting and on mild pain @ this time. v/S stable. Will continue to monitor. Called RT for IS.
[2019-06-24] MEDS: Docusate 100mg cap ORAL SCH (18:00)
--- NOTE | 2019-06-24 18:30 | NUR ---
NURSE NOTES: patient is fully awake and sitting up 2 the edge of the bed.Patient is tolerating well with her food. Voided in bedpan.V/S stable.
--- NOTE | 2019-06-24 19:30 | NUR ---
NURSE NOTES: Patient received in bed, aaox4, in room air, no acute distress. Requesting for dilaudid. Made aware that surgeon has changed her IV pain medication to morphine. Patient verbalized she gets headaches with morphine and wanted dilaudid back. Left message to Dr. Damian. Awaiting response.
--- NOTE | 2019-06-24 19:37 | NUR ---
HAND-OFF: Report given to Nell.
[2019-06-24] MEDS ORDERED: Hydromorphone 0.5mg/0.5ml inj IVP PRN (20:00)
--- NOTE | 2019-06-24 20:00 | NUR ---
NURSE NOTES: IV leaking, IV dilaudid already drawn out. Wasted in Pyxis, witnessed by another RN. New IV access to be obtained.
--- NOTE | 2019-06-24 21:00 | NUR ---
NURSE NOTES: Unable to find IV access; called scouring pads supervisor to ask ICU nurse for help. Patient made aware
--- NOTE | 2019-06-24 21:00 | Operative Note - Dictated ---
DATE OF OPERATION: 06/24/2019 PREOPERATIVE DIAGNOSIS: Acute cholecystitis. POSTOPERATIVE DIAGNOSIS: Acute cholecystitis. OPERATION PERFORMED: Laparoscopic cholecystectomy. ATTENDING SURGEON: Chuy Damian M.D. HADOOP ANALYST: None. ANESTHESIOLOGIST: David Morris M.D. 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 ESTIMATED BLOOD LOSS: Minimal. IV FLUIDS: Please see anesthesia records. COMPLICATIONS: None. DRAINS: None. COUNTS: Sponge and needle count correct x2. SPECIMENS: Gallbladder contained stones sent to pathology for review. ANTIBIOTICS: A 2 g Ancef given 1 hour prior to cut time. INDICATIONS FOR PROCEDURE: This is a 58-year-old female, seen prior in the office by myself after a referral from the PCP, Dr. Sherwin Jones for evaluation of cholelithiasis. The patient had an ultrasound done confirming a gallbladder with significant amount of cholelithiasis with intermittent pain for some time now. The patient was planned for scheduled elective cholecystectomy as her symptoms were becoming more periodic and was supposed to complete preoperative workup with her primary care physician, but since has developed an acute episode in the past few days, worsening, and came to the emergency department for evaluation at which time identified to have leukocytosis with an ultrasound identifying thickened gallbladder wall, positive Hahn's, and clinically cholecystitis. Surgery indicated and recommended. Risks, benefits, and alternatives were discussed with the patient in detail, who expressed understanding and consented to surgery. OPERATIVE NOTE: The patient was taken to the operative room and placed on the operating table in supine position with bilateral arms out. All bony prominences were well padded. SCDs were placed. Preoperative time-out taken in identifying the patient, procedure, operative staff, and surgical staff. General anesthesia was induced and the patient was intubated. Ancef IV was given 1 hour prior to cut time. Abdomen was clipped, prepped, and draped in standard surgical fashion. A supraumbilical incision was made and carried down through the subcutaneous tissue to the fascia, which was elevated and incised. Entry into the abdomen was obtained without complication. A 12 mm trocar was inserted and the abdomen was insufflated to 12 to 15 mmHg. The patient tolerated the insufflation well. Laparoscope was inserted and the abdomen was inspected. No injury from initial trocar placement noted. The omentum was attached to the gallbladder in the right upper quadrant. Secondary trocars were placed under direct visualization beginning with a 12 mm subxiphoid followed by two 5 mm right subcostal. Graspers were used and the omentum was gently swept off the gallbladder. The dome of the gallbladder was identified and grasped using most lateral port and retracted over the liver. The infundibulum was identified and gently dissected out and grasped using the midclavicular port, directed towards the right lower quadrant. With gentle dissection, the critical view was obtained circumferentially dissecting out the cystic duct and artery. The cystic artery was doubly clipped and divided. The cystic duct was the only remaining structure entering into the infundibulum. Of note, the cystic duct was fairly dilated. Furthermore, the gallbladder was entirely full of stones. At this time, the cystic duct was doubly clipped and divided. The gallbladder was taken off the liver bed using electrocautery. Gallbladder was placed in endoscopic retrieval bag and removed from the supraumbilical port site. The gallbladder fossa was evaluated and hemostasis obtained using electrocautery. The cystic duct and artery stumps were identified. No leakage of bile and good hemostasis was noted. At this time, we began the conclusion of our procedure. A Surgicel was placed in the gallbladder fossa. The right upper quadrant was irrigated and suctioned until clear. Secondary trocars were removed under direct visualization followed by the umbilical trocar site. The umbilical trocar site fascia was reapproximated using [id number] #0 Vicryl suture. The skin incisions were reapproximated using 4-0 Monocryl subcuticular interrupted sutures. Benzoin, Steri-Strips, and dressings were applied. The patient tolerated the procedure well and was extubated and taken to postanesthetic care unit in stable condition. Chuy Damian M.D. DR: OG JOB#: [id number] CC: CARMELO
[2019-06-24] MEDS: Piperacillin/Tazobactam 4.5 GM in NS 110 ML IVPB SCH (22:00)
[2019-06-25] VITALS (7 sets, daily range): BP systolic 110–149; BP diastolic 65–100
[2019-06-25] MEDS: NovoLOG Insulin Flexpen SUBQ SCH ×4 (06:13→20:59)
[2019-06-25] MEDS: Piperacillin/Tazobactam 4.5 GM in NS 110 ML IVPB SCH ×3 (06:16→22:21)
--- NOTE | 2019-06-25 07:52 | NUR ---
HAND-OFF: Report given to Zhao HERNANDEZ.
--- NOTE | 2019-06-25 07:53 | NUR ---
NURSE NOTES: Received patient in bed, awake, alert and oriented x4. Not in respiratory/cardiac distress. Mild pain on abdomen, no active bleeding. IV's intact, no s/s of infiltration. Bed is in lowest position and locked. Call light within reach. Will continue plan of care.
[2019-06-25] MEDS: Docusate 100mg cap ORAL SCH ×2 (09:10→17:43)
[2019-06-25] MEDS: HYDROmorphone 1mg/ml Carpuject IVP PRN ×3 (09:11→18:18)
[2019-06-25] MEDS: Furosemide 40mg tab ORAL SCH (09:11)
[2019-06-25] MEDS: Enoxaparin 40mg Inj SUBQ SCH ×2 (09:12→17:45)
--- NOTE | 2019-06-25 09:30 | NUR ---
NURSE NOTES: Patient was seen by Dr. Lees and patient requested to be discharged to after care facility. Dr. Lees will talk to CM.
--- NOTE | 2019-06-25 09:42 | 48 Hour Post Anesthesia Eval ---
Post Anesthesia Evaluation Procedure: Laparoscopic Cholecystectomy Date of Evaluation: Jun 25, 2019 Time of Evaluation: 09:41 Blood Pressure Systolic: 134 0: 80 Pulse Rate: 80 Respiratory Rate: 17 Temperature (Fahrenheit): 97.9 O2 Sat by Pulse Oximetry: 98 Airway: patent Nausea: No Vomiting: No Pain Intensity: 2 Hydration Status: adequate Cardiopulmonary Status: Stable Mental Status/LOC: patient returned to baseline Follow-up Care/Observations: 0 Post-Anesthesia Complications: 0 Follow-up care needed: N/A David Morris MD Jun 25, 2019 09:42
--- NOTE | 2019-06-25 09:54 | Surgery Progress Note ---
Surgery Progress Note Subjective Procedure Performed lap conrad Symptoms: improved, tolerating diet, voiding well, passing flatus Objective Last 24 Hour Vital Signs Date Time Temp Pulse Resp B/P (MAP) Pulse Ox O2 Delivery O2 Flow Rate FiO2 06/25/19 09:42 80 17 98 06/25/19 09:35 78 17 98 Nasal Cannula 2.0 28 06/25/19 09:00 Room Air 06/25/19 08:00 97.9 80 17 134/78 (96) 96 06/25/19 04:00 98.2 86 20 128/65 (86) 96 06/25/19 00:00 97.2 82 26 110/69 (83) 98 06/24/19 21:00 Room Air 06/24/19 20:00 97.6 76 20 150/82 (104) 97 06/24/19 18:10 97.2 60 20 142/78 (99) 99 06/24/19 17:50 97.3 60 20 134/74 (94) 99 06/24/19 17:35 97.3 59 20 136/78 (97) 99 06/24/19 17:20 97.2 60 20 138/81 (100) 99 06/24/19 17:00 97.2 65 13 150/69 99 Nasal Cannula 3 06/24/19 16:45 63 14 145/74 99 Nasal Cannula 3 06/24/19 16:42 97.2 06/24/19 16:30 64 15 155/64 100 Nasal Cannula 3 06/24/19 16:15 64 12 147/73 100 Nasal Cannula 3 06/24/19 16:05 62 13 148/75 99 Simple Mask 6 06/24/19 15:55 63 23 142/65 98 Simple Mask 6 06/24/19 15:50 64 23 149/73 98 Simple Mask 6 06/24/19 15:46 97.4 70 23 163/58 98 Simple Mask 6 06/24/19 15:42 71 16 99 06/24/19 12:00 98.6 73 20 153/96 (115) 97 I&O Intake and Output 06/24/19 06/25/19 19:00 07:00 Intake Total 1400 ml 110.0 ml Output Total 50 ml Balance 1350 ml 110.0 ml IV Total 1400 ml 110.0 ml Estimated Blood Loss 50 ml # Voids 1 2 Dressing: dry Wound: clean Cardiovascular: RSR Respiratory: clear Abdomen: soft, present bowel sounds, other, non-distended Extremities: edema, no tenderness, no cyanosis Laboratory Tests Test 06/24/19 12:45 Prothrombin Time 10.1 SEC (9.30-11.50) Prothromb Time International Ratio 0.9 (0.9-1.1) Activated Partial Thromboplast Time 27 SEC (23-33) Plan Problems: (1) Acute cholecystitis Assessment & Plan: 58F with known history of symptomatic cholelithiasis presented with acute cholecystitis. afebrile, HD stable, leukocytosis imaging with distended GB and pericholecystic fluid exam with RUQ tenderness +[place] pod #1 s/p lap conrad diet as tolerated rx written f/u given instructions given okay to d/c home thank you Chuy Damian Jun 25, 2019 09:54
--- NOTE | 2019-06-25 10:00 | NUR ---
NURSE NOTES: Received prescription from Dr. Damian and surgical dressing was changed by Dr. Damian.
--- NOTE | 2019-06-25 13:30 | NUR ---
NURSE NOTES: Paged Dr. Lees to clarify discharge disposition. Awaiting for return call.
--- NOTE | 2019-06-25 15:26 | NUR ---
NURSE NOTES: paged Dr. Lees x2.
--- NOTE | 2019-06-25 16:12 | NUR ---
NURSE NOTES: Clarified discharge disposition. she said to refer patient to [facility].
--- NOTE | 2019-06-25 17:57 | NUR ---
GUARD CHIEF NOTES PT DECLINED AT [facility]. PT DOES NOT WANT TO GO TO [facility]. DC PLANNING ONGOING.
--- NOTE | 2019-06-25 19:25 | NUR ---
HAND-OFF: Report given to Nell.
--- NOTE | 2019-06-25 19:54 | Infectious Diseases Prog Note ---
Assessment/Plan Assessment/Plan Full consult dictated: A) 1. acute cholecystitis 2. leukocytosis 3. pmh noted 4. allergies - sulfa P) 1. zosyn - consider discontinue after today 2. monitor labs 3. thank you Subjective Allergies: Coded Allergies: SULFA (SULFONAMIDE ANTIBIOTICS) (Unverified Allergy, Unknown, 05/02/15) allergy history per Dr. Jones Objective Vital Signs Last 24 Hour Vital Signs Date Time Temp Pulse Resp B/P (MAP) Pulse Ox O2 Delivery O2 Flow Rate FiO2 06/25/19 19:48 72 18 97 Nasal Cannula 2.0 28 06/25/19 16:00 97.7 71 17 136/70 (92) 98 06/25/19 12:00 97.7 79 17 149/90 (109) 96 06/25/19 09:42 80 17 98 06/25/19 09:35 78 17 98 Nasal Cannula 2.0 28 06/25/19 09:00 Room Air 06/25/19 08:00 97.9 80 17 134/78 (96) 96 06/25/19 04:00 98.2 86 20 128/65 (86) 96 06/25/19 00:00 97.2 82 26 110/69 (83) 98 06/24/19 21:00 Room Air 06/24/19 20:00 97.6 76 20 150/82 (104) 97 Height (Feet): 6 Height (Inches): 1.00 Weight (Pounds): 416 Current Medications Medications (Trade) Dose Ordered Sig/Key Route PRN Reason Start Time Stop Time Status Last Admin Dose Admin Acetaminophen (Tylenol) 650 mg Q4H PRN ORAL FEVER 06/24/19 16:30 07/24/19 16:29 Acetaminophen (Tylenol) 650 mg Q6H PRN ORAL Mild Pain (Pain Scale 1-3) 06/24/19 16:30 07/24/19 16:29 Acetaminophen/ Hydrocodone Bitart ([place] 10/325) 1 tab Q4H PRN ORAL Severe Pain (Pain Scale 7-10) 06/24/19 16:30 07/01/19 16:29 Al Hydroxide/Mg Hydroxide (Mylanta) 15 ml Q6H PRN ORAL DYSPEPSIA 06/24/19 16:30 07/24/19 16:29 Albuterol/ Ipratropium (Albuterol/ Ipratropium) 3 ml Q4HR PRN HHN Shortness of Breath 06/23/19 22:00 06/28/19 21:59 Dextrose (Dextrose 50%) 25 ml Q30M PRN IV Hypoglycemia 06/23/19 22:00 07/23/19 21:59 Dextrose (Dextrose 50%) 50 ml Q30M PRN IV Hypoglycemia 06/23/19 22:00 07/23/19 21:59 Diphenhydramine HCl (Benadryl) 25 mg Q8H PRN ORAL Itching/Pruritis 06/24/19 16:30 07/24/19 16:29 Docusate Sodium (Colace) 100 mg TWICE A DAY ORAL 06/24/19 18:00 07/24/19 17:59 06/25/19 17:43 Enoxaparin Sodium (Lovenox) 40 mg BID SUBQ 06/23/19 23:00 07/23/19 22:59 06/25/19 17:45 Furosemide (Lasix) 40 mg DAILY ORAL 06/24/19 09:00 07/24/19 08:59 06/25/19 09:11 Hydromorphone HCl (Dilaudid) 0.5 mg Q4H PRN IVP Mild Pain (Pain Scale 1-3) 06/24/19 20:00 07/01/19 19:59 Hydromorphone HCl (Dilaudid) 1 mg Q4H PRN IVP Moderate Pain (Pain Scale 4-6) 06/24/19 20:00 07/01/19 19:59 06/25/19 18:18 Hydromorphone HCl (Dilaudid) 2 mg Q4H PRN IVP Severe Pain (Pain Scale 7-10) 06/24/19 20:00 07/01/19 19:59 06/25/19 04:12 Insulin Aspart (NovoLOG) BEFORE MEALS AND HS SUBQ 06/24/19 06:30 07/24/19 06:29 Magnesium Hydroxide (Mom) 30 ml BIDPRN PRN ORAL Constipation 06/24/19 16:30 07/24/19 16:29 Ondansetron HCl (Zofran) 4 mg Q6H PRN IVP Nausea & Vomiting 06/24/19 16:30 07/24/19 16:29 Piperacillin Sod/ Tazobactam Sod 4.5 gm/Sodium Chloride 110 ml @ 27.5 mls/hr EVERY 8 HOURS IVPB 06/24/19 22:00 06/29/19 21:59 06/25/19 13:57 Sennosides (Senokot) 8.6 mg BIDPRN PRN ORAL Constipation 06/24/19 16:30 07/24/19 16:29 Temazepam (RestoriL) 7.5 mg DAILYPRN PRN ORAL Insomnia 06/24/19 16:30 07/01/19 16:29 Slim Javed MD Jun 25, 2019 19:54
--- NOTE | 2019-06-25 20:00 | NUR ---
NURSE NOTES: Patient received in bed, aox4, accidentally urinated in the bed. Complete linen changed done. Made patient comfortable. IV is intact and patent. Call light within reach. Personal belongings within reach. Verbalized understanding regarding education for fall precautions. Will monitor.
[2019-06-25 21:02] LABS: BASOPHILS % (AUTO) 1.6 % (0.0-2.0); EOSINOPHILS % (AUTO) 0.8 % (0.0-3.0); HEMATOCRIT 35.3 % (37.0-47.0); HEMOGLOBIN 10.6 G/DL (12.0-16.0); LYMPHOCYTES % (AUTO) 7.8 % (20.0-45.0); MEAN CORPUSCULAR VOLUME 84 FL (80-99); MONOCYTES % (AUTO) 5.5 % (1.0-10.0); NEUTROPHILS % (AUTO) 84.3 % (45.0-75.0); PLATELET COUNT 272 K/UL (150-450); RED CELL DISTRIBUTION WIDTH 15.8 % (11.6-14.8)
[2019-06-25 21:14] LABS: ALANINE AMINOTRANSFERASE 33 U/L (12-78); ALBUMIN/GLOBULIN RATIO 0.7 (1.0-2.7); ALKALINE PHOSPHATASE 66 U/L (46-116); ANION GAP 7 mmol/L (5-15); ASPARTATE AMINO TRANSFERASE 30 U/L (15-37); BILIRUBIN,TOTAL 0.3 MG/DL (0.2-1.0); BLOOD UREA NITROGEN 7 mg/dL (7-18); CALCIUM 8.4 MG/DL (8.5-10.1); CARBON DIOXIDE 30 MMOL/L (21-32); CHLORIDE 104 MMOL/L (98-107); CREATININE 0.7 MG/DL (0.55-1.30); POTASSIUM 3.9 MMOL/L (3.5-5.1); SODIUM 141 MMOL/L (136-145)
--- NOTE | 2019-06-25 23:43 | General Progress Note ---
Assessment/Plan Problem List: (1) Acute cholecystitis ICD Codes: K81.0 - Acute cholecystitis SNOMED: 38202123 (2) DVT, bilateral lower limbs ICD Codes: I82.403 - Acute embolism and thrombosis of unspecified deep veins of lower extremity, bilateral SNOMED: 441827090, 333505951 (3) Factor 5 Leiden mutation, heterozygous ICD Codes: D68.8 - Factor 5 Leiden mutation, heterozygous SNOMED: 522176014 (4) Venous stasis ICD Codes: I87.8 - Other specified disorders of veins SNOMED: 67641867 (5) HTN (hypertension) ICD Codes: I10 - Essential (primary) hypertension SNOMED: 34904643 (6) Cholelithiasis ICD Codes: K80.20 - Calculus of gallbladder without cholecystitis without obstruction SNOMED: 218214595 Qualifiers: Qualified Codes: K80.80 - Other cholelithiasis without obstruction (7) Morbid obesity ICD Codes: E66.01 - Morbid (severe) obesity due to excess calories SNOMED: 117458120 (8) Gout ICD Codes: M10.9 - Gout, unspecified SNOMED: 40931923 (9) Diabetes type 2, controlled ICD Codes: E11.9 - Type 2 diabetes mellitus without complications SNOMED: 10089004, 550633295 Status: stable Assessment/Plan: 58-year-old female with history of cholelithiasis presented with acute worsening of her right upper quadrant abdominal pain, found to have acute cholecystitis #Acute cholecystitis now pod #1 s/p cholecystectomy IV antibiotics with zosyn, ID consult. Will consider stopping tomorrow IV fluids General surgery consult appreciated N.p.o. diet advanced as tolerated Pain control #Hypertension Hold home hydrochlorothiazide and Lasix Hydralazine as needed for SBP greater than 150 #Diabetes 2-controlled Hold home metformin and liraglutide Initiate insulin via sliding scale, check fingerstick blood glucose before meals and at midnight Check hemoglobin A1c #Morbid obesity Patient counseled on lifestyle changes and dietary modification #Gout Hold home Uloric for now #History of DVT on apixaban Held apixaban in anticipation of surgery. Will d/w Surgeon regarding when to resume VT prophylaxis: Lovenox 40 mg subcu daily GI prophylaxis: Not indicated CODE STATUS full code Disposition: Medically stable for discharge. d/w piano case maker I spent 40 minutes on this encounter, greater than 50% spent in counseling care coordination. time of not may not reflect time of encounter Subjective Date patient seen: Jun 25, 2019 ROS Limited/Unobtainable: No Constitutional: Denies: no symptoms, chills, diaphoresis, fever, malaise, weakness, other HEENT: Denies: no symptoms, eye pain, blurred vision, tearing, double vision, ear pain, ear discharge, nose pain, nose congestion, throat pain, throat swelling, mouth pain, mouth swelling, other Cardiovascular: Denies: no symptoms, chest pain, edema, irregular heart rate, lightheadedness, palpitations, syncope, other Respiratory: Denies: no symptoms, cough, orthopnea, shortness of breath, SOB with excertion, SOB at rest, sputum, stridor, wheezing, other Gastrointestinal/Abdominal: Denies: no symptoms, abdomen distended, abdominal pain, black stools, tarry stools, blood in stool, constipated, diarrhea, difficulty swallowing, nausea, poor appetite, poor fluid intake, rectal bleeding , vomiting, other Genitourinary: Denies: no symptoms, burning, discharge, frequency, flank pain, hematuria, incontinence, pain, urgency, other Neurologic/Psychiatric: Denies: no symptoms, anxiety, depressed, emotional problems, headache, numbness, paresthesia, pre-existing deficit, seizure, tingling, tremors, weakness, other Endocrine: Denies: no symptoms, excessive sweating, flushing, intolerance to cold, intolerance to heat, increased hunger, increased thirst, increased urine, unexplained weight gain, unexplained weight loss, other Hematologic/Lymphatic: Denies: no symptoms, anemia, easy bleeding, easy bruising, other Allergies: Coded Allergies: SULFA (SULFONAMIDE ANTIBIOTICS) (Unverified Allergy, Unknown, 05/02/15) allergy history per Dr. Jones Subjective doing well. s/p lap cholecystectomy pod #1 Objective Last 24 Hour Vital Signs Date Time Temp Pulse Resp B/P (MAP) Pulse Ox O2 Delivery O2 Flow Rate FiO2 06/25/19 23:34 98.7 92 17 127/85 (99) 95 06/25/19 21:00 Room Air 06/25/19 20:00 98.1 90 17 131/100 (110) 99 06/25/19 19:48 72 18 97 Nasal Cannula 2.0 28 06/25/19 16:00 97.7 71 17 136/70 (92) 98 06/25/19 12:00 97.7 79 17 149/90 (109) 96 06/25/19 09:42 80 17 98 06/25/19 09:35 78 17 98 Nasal Cannula 2.0 28 06/25/19 09:00 Room Air 06/25/19 08:00 97.9 80 17 134/78 (96) 96 06/25/19 04:00 98.2 86 20 128/65 (86) 96 06/25/19 00:00 97.2 82 26 110/69 (83) 98 Intake and Output 06/24/19 06/25/19 19:00 07:00 Intake Total 1400 ml 110.0 ml Output Total 50 ml Balance 1350 ml 110.0 ml IV Total 1400 ml 110.0 ml Estimated Blood Loss 50 ml # Voids 1 2 Laboratory Tests 06/25/19 20:30: White Blood Count 15.0H, Red Blood Count 4.20, Hemoglobin 10.6L, Hematocrit 35.3L, Mean Corpuscular Volume 84, Mean Corpuscular Hemoglobin 25.2L, Mean Corpuscular Hemoglobin Concent 29.9L, Red Cell Distribution Width 15.8H, Platelet Count 272, Mean Platelet Volume 6.8, Neutrophils (%) (Auto) 84.3H, Lymphocytes (%) (Auto) 7.8L, Monocytes (%) (Auto) 5.5, Eosinophils (%) (Auto) 0.8, Basophils (%) (Auto) 1.6, Sodium Level 141, Potassium Level 3.9, Chloride Level 104, Carbon Dioxide Level 30, Anion Gap 7, Blood Urea Nitrogen 7, Creatinine 0.7, Estimat Glomerular Filtration Rate > 60, Glucose Level 123H, Calcium Level 8.4L, Total Bilirubin 0.3, Aspartate Amino Transf (AST/SGOT) 30, Alanine Aminotransferase (ALT/SGPT) 33, Alkaline Phosphatase 66, Total Protein 7.3, Albumin 3.0L, Globulin 4.3, Albumin/Globulin Ratio 0.7L Height (Feet): 6 Height (Inches): 1.00 Weight (Pounds): 416 Objective General Appearance: WD/WN, no apparent distress, other - morbid obese Lines, tubes and drains: peripheral HEENT: normocephalic, atraumatic, anicteric, mucous membranes moist, PERRL, EOMI Neck: non-tender, normal alignment, supple Respiratory/Chest: chest wall non-tender, lungs clear, normal breath sounds, no respiratory distress, no accessory muscle use Cardiovascular/Chest: normal peripheral pulses, normal rate, regular rhythm, no gallop/murmur, no JVD Abdomen: normal bowel sounds, soft, mild tenderness at incision sites , no guarding, no rebound, obese abdomen Extremities: normal range of motion, non-tender, no calf tenderness Skin Exam: warm/dry, other - bilatral venous stasis dermatitis Neurologic: system designer II-XII grossly normal, no motor/sensory deficits, alert, 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, responsive Musculoskeletal: normal muscle bulk Jese Lees M.D. Jun 25, 2019 23:43
--- NOTE | 2019-06-26 00:15 | Consultation ---
DATE OF CONSULTATION: 06/25/2019 INFECTIOUS DISEASE CONSULTATION CONSULTING PHYSICIAN: Slim Javed M.D. ATTENDING PHYSICIAN: Dalia Holm M.D. REFERRING PHYSICIAN: 1. Jese Lees M.D. 2. Chuy Damian M.D. REASON FOR CONSULTATION: Acute cholecystitis, elevated white count, and antibiotic management. CHIEF COMPLAINT: The patient's chief complaint coming in to hospital is acute cholecystitis and abdominal pain. HISTORY OF PRESENT ILLNESS: This is a 58-year-old female who comes in to [facility] with right upper quadrant pain. The patient had an abdominal ultrasound, which showed cholelithiasis, gallbladder wall thickening, and positive sonographic Hahn sign, was concerned for acute cholecystitis. The patient was seen by Dr. Damian, who had seen the patient in his office. The patient was planned for elective cholecystectomy. However, symptoms became worse and developed an acute episode. The patient now is status post cholecystectomy done on 06/24/2019 for the acute cholecystitis. The patient currently is on Zosyn. The patient did have an elevated white count on admission. Infectious Disease consultation is requested for antibiotic management on this patient. MAR was noted. Orders were noted. Notes and records were reviewed. Case was discussed with Dr. Lees and Dr. Damian. REVIEW OF SYSTEMS: GENERAL: Main issue coming in was abdominal discomfort. She denies any fever, chills, night sweats, or weight loss. HEAD AND NECK: No head pain, neck pain, thrush, dysphagia, headache, or neck stiffness. CARDIAC: No chest pain. GASTROINTESTINAL: She came with abdominal pain. No nausea, vomiting, or diarrhea currently. She has some abdominal pain postoperatively. GENITOURINARY: She has no dysuria or frequency. No Shah. PULMONARY: No congestion or short of breath. Mild secretions. SKIN: No rash. EXTREMITIES: No pain. NEUROLOGICAL: No seizures. Denies fatigue. No focal weakness. PAST MEDICAL HISTORY: The patient's past medical history includes the following, she has a past medical history of morbid obesity. She has history of diabetes, hypertension, gallstones, DVT, venous stasis, diabetes type 2, and hypertension. ALLERGIES: Sulfa drugs. FAMILY HISTORY: Noncontributory. Negative for tuberculosis or cancer. SOCIAL HISTORY: Negative for smoking, alcohol, or drug abuse. MEDICATIONS: Upon reviewing the MAR, she is on following medications, she is on Zosyn, hydromorphone as needed, acetaminophen as needed, hydrocodone as needed, Zofran as needed, magnesium hydroxide, Senokot, temazepam, acetaminophen, diphenhydramine, Mylanta, insulin, furosemide, and enoxaparin. Outside medications noted and reconciliated. PHYSICAL EXAMINATION: VITAL SIGNS: Temperature 97.7 degrees, pulse rate 71, respiratory rate 17, blood pressure 136/70, and saturation 98%. GENERAL: Alert and responsive, in no distress. Oriented x3. HEAD AND NECK: Normocephalic. Neck is supple. No JVD. No icterus or thrush. HEART: Regular. No gallop or murmur. ABDOMEN: Soft. Some discomfort postoperatively. No rebound. LUNGS: Clear bilaterally. No rhonchi or rales. SKIN: No rash or dermatitis. MUSCULOSKELETAL: No effusion. No septic arthritis. Lower extremities are without cellulitis. PERIPHERAL VASCULAR: No cyanosis. GENITOURINARY: No Shah. LINE SITES: Without phlebitis. NEUROLOGICAL: Intact, nonfocal, alert, and responsive. LABORATORY AND IMAGING DATA: Creatinine 0.8. White count 12.0 and hemoglobin 10.5. Abdominal ultrasound showed cholelithiasis and gallbladder wall thickening and positive Hahn sign concerning for acute cholecystitis. ASSESSMENT AND PLAN: 1. The patient has acute cholecystitis, status post laparoscopic cholecystectomy done on 06/24/2019. The patient had elevated white count. At this time, I agree with Zosyn for gram-negative anaerobic coverage. However, if the patient's labs are stable to more and leukocytosis resolved, consider stopping the Zosyn. Continue Zosyn for now for perioperative antibiotics for acute cholecystitis, status post laparoscopic cholecystectomy and elevated white count. 2. Morbid obesity. 3. Hypertension. 4. Diabetes. 5. Blood sugar and blood pressure treatment per primary care team Dr. Lees for diabetes and hypertension. 6. History of blood clots/DVT. 7. History of venous stasis. 8. History of cellulitis of lower extremities in the past. 9. History of gallstones. 10. Continue treatment per primary consultants. 11. Allergies to sulfa. 12. Social history is negative. 13. Family history is noncontributory. 14. MAR is noted. 15. Case was discussed with MARY. Slim Javed M.D. DR: VENU JOB#: [id number] CC:
[2019-06-26 04:00] VITALS: BP 131/74
[2019-06-26] MEDS: Piperacillin/Tazobactam 4.5 GM in NS 110 ML IVPB SCH ×2 (05:17→14:00)
[2019-06-26] MEDS: NovoLOG Insulin Flexpen SUBQ SCH ×3 (05:45→16:30)
[2019-06-26 06:43] LABS: BASOPHILS % (AUTO) 0.8 % (0.0-2.0); EOSINOPHILS % (AUTO) 0.9 % (0.0-3.0); HEMATOCRIT 31.8 % (37.0-47.0); LYMPHOCYTES % (AUTO) 10.6 % (20.0-45.0); MEAN CORPUSCULAR VOLUME 82 FL (80-99); MONOCYTES % (AUTO) 7.5 % (1.0-10.0); NEUTROPHILS % (AUTO) 80.2 % (45.0-75.0); PLATELET COUNT 260 K/UL (150-450); RED BLOOD COUNT 3.87 M/UL (4.20-5.40); RED CELL DISTRIBUTION WIDTH 14.7 % (11.6-14.8); WHITE BLOOD COUNT 15.3 K/UL (4.8-10.8)
--- NOTE | 2019-06-26 07:27 | NUR ---
HAND-OFF: Report given to Farheen HERNANDEZ. Pt aox4, eating breakfast, call light in reach, verbalized understanding regarding fall risk and asking for assistance prior to toileting.
[2019-06-26 08:00] VITALS: BP 131/82
--- NOTE | 2019-06-26 08:09 | NUR ---
NURSE NOTES: Patient awake and alert and oriented,respirations unlabored.Lap sites to abdomen with steri strips in tact,patient ate breakfast.Patient requesting pain medication will give as ordered.Call light within reach.
[2019-06-26] MEDS: Furosemide 40mg tab ORAL SCH (08:26)
[2019-06-26] MEDS: Docusate 100mg cap ORAL SCH (08:26)
[2019-06-26] MEDS: Enoxaparin 40mg Inj SUBQ SCH (08:28)
[2019-06-26] MEDS: HYDROmorphone 1mg/ml Carpuject IVP PRN ×2 (08:31→16:30)
--- NOTE | 2019-06-26 10:24 | Discharge Summary ---
Discharge Summary Hospital Course Date of Admission Jun 23, 2019 at 17:55 Date of Discharge 06/26/2019 Admitting Diagnosis CHOLELITHIASIS,SYMPTOMATIC HPI Marielle Mccormack is a 58 year old female who was admitted on Jun 23, 2019 at 17:55 for Cholelithiasis, Symptomatic Consultations General surgery, ID Procedures lap cholecystectomy Hospital Course 58-year-old female with history of cholelithiasis presented with acute worsening of her right upper quadrant abdominal pain, found to have acute cholecystitis #Acute cholecystitis now pod #2 s/p cholecystectomy IV antibiotics with zosyn, ID consult. Will stop now IV fluids, stop General surgery consult appreciated N.p.o. diet advanced as tolerated and tolerating Pain control #Hypertension resume home hydrochlorothiazide and Lasix, initially held Hydralazine as needed for SBP greater than 150 #Diabetes 2-controlled Hold home metformin and liraglutide, resume on discharge Initiate insulin via sliding scale, check fingerstick blood glucose before meals and at midnight Check hemoglobin A1c, within good control #Morbid obesity Patient counseled on lifestyle changes and dietary modification #Gout Hold home Uloric for now, will resume on dc #History of DVT on apixaban Held apixaban in anticipation of surgery. Will d/w Surgeon regarding when to resume. PEr surgery okay to resume today VT prophylaxis: Lovenox 40 mg subcu daily GI prophylaxis: Not indicated CODE STATUS full code Disposition: Medically stable for discharge. d/w caseworker intake . Home with home health Today she is doing well. She is no distress. Pain controlled. I spent 40 minutes on this encounter, greater than 50% spent in counseling care coordination. time of not may not reflect time of encounter Discharge Medications Continued Medications: Acetaminophen With Codeine (T#3) (Tylenol With Codeine #3 Tablet) Y Tab 1 TAB ORAL Q4H PRN for For Pain, TAB Apixaban (Eliquis) 5 Mg Tablet 5 MG PO BID, TAB (This prescription has been renewed) Benazepril Hcl* (Benazepril Hcl*) 20 Mg Tablet 20 MG ORAL DAILY, TAB (This prescription has been renewed) Docusate Sodium* (Colace*) 100 Mg Capsule 100 MG ORAL TWICE A DAY, CAP Febuxostat (Uloric) 40 Mg Tablet 40 MG ORAL DAILY, TAB 0 Refills Furosemide* (Lasix*) 40 Mg Tablet 40 MG ORAL DAILY, #30 TAB Hydrochlorothiazide* (Hydrochlorothiazide*) 25 Mg Tablet 25 MG ORAL DAILY, TAB (This prescription has been renewed) Hydrocodone Bit/Acetaminophen 7.5-300 Mg Tabl (Vicodin Es 7.5-300 Mg Tablet) 1 Each Tablet 1 TAB ORAL Q4H PRN for For Pain, #30 TAB 0 Refills (This prescription has been renewed) Ibuprofen* (Motrin*) 600 Mg Tablet 600 MG ORAL THREE TIMES A DAY, #30 TAB 0 Refills Liraglutide (Saxenda) 3 Mg/0.5 Ml Pen.injctr 3 MG SQ DAILY, EA (This prescription has been renewed) Metformin Hcl* (Metformin Hcl*) 500 Mg Tablet 500 MG ORAL TWICE A DAY for DM, TAB (This prescription has been renewed) Multivitamin (Daily Mario) 1 Each Tablet 1 TAB ORAL DAILY, #30 TAB 0 Refills (This prescription has been renewed) Multivitamin (Daily Mario) 1 Each Tablet 1 TAB ORAL DAILY for supplement, #30 TAB 0 Refills (This prescription has been renewed) Discharge Condition Upon Discharge: stable Discharge Vital Signs Last Vital Signs Date Time Temp Pulse Resp B/P (MAP) Pulse Ox O2 Delivery O2 Flow Rate FiO2 06/26/19 08:05 77 21 97 Nasal Cannula 2.0 28 06/26/19 08:00 99.1 131/82 (98) Discharge Disposition Patient was discharged to home with Discharge Diagnoses: (1) Acute cholecystitis (2) S/P laparoscopic cholecystectomy (3) Morbid obesity (4) Diabetes type 2, controlled Jese Lees M.D. Jun 26, 2019 10:24
--- NOTE | 2019-06-26 11:40 | NUR ---
RD ASSESSMENT & RECOMMENDATIONS SEE CARE ACTIVITY FOR COMPLETE ASSESSMENT DAILY ESTIMATED NEEDS: Needs based on Obesity, surgery (Adj 103.5) 15-20 kcals/kg 3943-5348 total kcals 1-1.5 g protein/kg 104-155 g total protein Fluid per MD, on lasix mL/kg per MD total fluid mLs NUTRITION DIAGNOSIS: 1) Decreased fat needs r/t cholecystitis and obesity as evidenced by s/p lap conrad POC #2, pt w/ BMI 55, @252% IBW. (CURRENT DIET: Regular) PO DIET RECOMMENDATIONS--->>> LOW FAT DIET ADDITIONAL RECOMMENDATIONS: 1) Rec standing scale as able or calibrated bed scale weight 2) Provided pt w/ Low Fat diet edu 3) Monitor tolerance to diet 4) Monitor lytes daily, on lasix, replete as needed .
[2019-06-26 12:00] VITALS: BP 135/96
[2019-06-26 16:00] VITALS: BP 144/85
--- NOTE | 2019-06-26 19:00 | NUR ---
NURSE NOTES: Patient discharge patient prescriptions filled at outpatient pharmacy.[facility]Patient has personal belongings.IV x2 removed.Patient has own cane and wheelchair.Accompany patient to Taxi will transport patient home.
--- NOTE | 2019-06-26 19:00 | NUR ---
NURSE NOTES: Lap sites to abdomen remains intact.
== END 2019-06-26 19:15 | disposition home or self-care (01) | DRG 418 ==
LOC: EMR 17:15 → EDBEDREQ 17:36 → 4E 17:55 → EDBEDREQ 19:02
PROC: 0FT44ZZ Resection of Gallbladder, Percutaneous Endoscopic Approach (ICD-10-PCS; principal; 2019-06-24 14:30)
DX: K80.00 Calculus of gallbladder with acute cholecystitis without obstruction (principal); Z68.43 Body mass index [BMI] 50.0-59.9, adult; D68.51 Activated protein C resistance; I82.503 Chronic embolism and thrombosis of unspecified deep veins of lower extremity, bilateral; E66.01 Morbid (severe) obesity due to excess calories; I10 Essential (primary) hypertension; Z88.2 Allergy status to sulfonamides; I87.8 Other specified disorders of veins; E11.9 Type 2 diabetes mellitus without complications; M10.9 Gout, unspecified; Z79.01 Long term (current) use of anticoagulants
CPT/HCPCS: 36415; 76700; 80053; 81003; 82962; 83036; 83690; 85025; 85610; 85730; 93005; 94003; 94150; 94664; 96374; 96375; 99285; J1815; J2250; J2405; J2710; J2765; J7030

== ENCOUNTER 2019-08-04 14:45 | Outpatient (CLI) | payer MEDICARE, OTHER ==
[~2019-08-04 14:45] MED LIST changes: +METFORMIN HCL500 M1 ORAL
[2019-08-04 15:32] LABS: APPEARANCE,URINE CLEAR; BILIRUBIN, URINE NEGATIVE (NEGATIVE); GLUCOSE, URINE (UA) NEGATIVE (NEGATIVE); KETONES,URINE NEGATIVE (NEGATIVE); LEUKOCYTE ESTERASE ,URINE 1+ (NEGATIVE); NITRITE,URINE NEGATIVE (NEGATIVE); PH,URINE 7 (4.5-8.0); PROTEIN,URINE NEGATIVE (NEGATIVE); UROBILINOGEN,URINE NORMAL MG/DL (0.0-1.0)
[2019-08-04 15:35] LABS: COLOR,URINE YELLOW
[2019-08-04 15:38] LABS: BASOPHILS % (AUTO) 0.9 % (0.0-2.0); EOSINOPHILS % (AUTO) 0.6 % (0.0-3.0); HEMATOCRIT 37.1 % (37.0-47.0); HEMOGLOBIN 11.6 G/DL (12.0-16.0); LYMPHOCYTES % (AUTO) 16.3 % (20.0-45.0); MEAN CORPUSCULAR VOLUME 80 FL (80-99); MONOCYTES % (AUTO) 4.5 % (1.0-10.0); NEUTROPHILS % (AUTO) 77.6 % (45.0-75.0); PLATELET COUNT 284 K/UL (150-450); RED BLOOD COUNT 4.63 M/UL (4.20-5.40); RED CELL DISTRIBUTION WIDTH 14.5 % (11.6-14.8); WHITE BLOOD COUNT 14.9 K/UL (4.8-10.8)
[2019-08-04 16:14] LABS: ALANINE AMINOTRANSFERASE 25 U/L (12-78); ALBUMIN 3.4 G/DL (3.4-5.0); ALBUMIN/GLOBULIN RATIO 0.7 (1.0-2.7); ALKALINE PHOSPHATASE 99 U/L (46-116); ANION GAP 15 mmol/L (5-15); ASPARTATE AMINO TRANSFERASE 16 U/L (15-37); BILIRUBIN,TOTAL 0.2 MG/DL (0.2-1.0); BLOOD UREA NITROGEN 11 mg/dL (7-18); CALCIUM 9.3 MG/DL (8.5-10.1); CARBON DIOXIDE 24 MMOL/L (21-32); CHLORIDE 101 MMOL/L (98-107); CHOLESTEROL 186 MG/DL (< 200); CREATININE 0.9 MG/DL (0.55-1.30); HDL CHOLESTEROL 61 MG/DL (40-60); SODIUM 140 MMOL/L (136-145); TRIGLYCERIDES 174 MG/DL (30-150)
== END 2019-08-04 16:45 | disposition home or self-care (01) ==
LOC: LAB 14:45
DX: E11.9 Type 2 diabetes mellitus without complications (principal); D68.59 Other primary thrombophilia
CPT/HCPCS: 36415; 80053; 80061; 81001; 82043; 83036; 84443; 85025

== ENCOUNTER 2019-08-04 15:29 | Emergency (ER) | payer MEDICARE, OTHER ==
[~2019-08-04] VITALS: Ht 185.4 cm; Wt 188.7 kg
[2019-08-04 15:42] VITALS: BP 101/72
--- NOTE | 2019-08-04 15:47 | NUR ---
ED Nurse Note: Patient wheeled into ED from home for medication change, Zenpep, which is causing her heartburn. AAO x4, VSS at this time.
--- NOTE | 2019-08-04 15:57 | NUR ---
ED Nurse Note: Pt cleared by health care Provider for discharge. DC instructions/prescription was given and explained to pt and verbalized understanding of teachings. All medical deviecs such as ID band removed. Pt is AAO x4, ambulatory and left with all personal belongings.
--- NOTE | 2019-08-04 18:25 | Emergency Room Report ---
History of Present Illness General Chief Complaint: General Complaint Source: Patient Present Illness HPI Patient presents with reports of epigastric discomfort and nausea reports that the new medication she was put on by her primary physician appears to be upsetting her stomach Patient had recent cholecystectomy in the hospital Was here having outpatient blood work obtained And presents to the emergency room for discussion regarding her medication Denies any vomiting denies any diarrhea patient reports mild epigastric burning sensation COVID-19 risk:Contact w/high r: No COVID-19 risk:Travel to affect: No Has patient experienced castillo: No Allergies: Coded Allergies: SULFA (SULFONAMIDE ANTIBIOTICS) (Unverified Allergy, Unknown, 05/02/15) allergy history per Dr. Jones Patient History Past Medical History: see triage record Now: No Reviewed Nursing Documentation: PMH: Agreed; PSxH: Agreed Nursing Documentation-PMH Past Medical History: No History, Except For Hx Cardiac Problems: Yes - DVT Hx Hypertension: Yes Hx Asthma: Yes Hx Diabetes: Yes Hx Cancer: No - - Hx Gastrointestinal Problems: Yes - GI bleeding Hx Neurological Problems: No Hx Cerebrovascular Accident: No - CELLULITIS LOWER ABD AND BI-LAT LEGS Review of Systems All Other Systems: negative except mentioned in HPI Physical Exam Vital Signs Date Time Temp Pulse Resp B/P (MAP) Pulse Ox O2 Delivery O2 Flow Rate FiO2 08/04/19 15:31 98.2 98 16 101/72 (82) 98 Room Air Sp02 EP Interpretation: reviewed, normal General Appearance: no apparent distress, alert Head: normocephalic, atraumatic Eyes: bilateral eye PERRL ENT: hearing grossly normal, EOM grossly intact Neck: supple Respiratory: no respiratory distress, no retraction Cardiovascular #1: regular rate, rhythm Gastrointestinal: soft Musculoskeletal: other - Patient sitting on motorized chair Neurologic: alert, oriented x3 Psychiatric: normal inspection Skin: no rash Lymphatic: normal inspection Medical Decision Making Diagnostic Impression: Primary Impression: medicine intolerance ER Course Multiple differentials and consideration including but not limited to gastritis retained stone, pancreatitis Intolerance to medication patient appears well has a benign medical evaluation I discussed with her to talk to prescribing physician regarding continuing or discontinuing her medication at this time further change was not made to the ER Last Vital Signs Date Time Temp Pulse Resp B/P (MAP) Pulse Ox O2 Delivery O2 Flow Rate FiO2 08/04/19 15:42 98 16 Room Air 08/04/19 15:42 98.2 101/72 98 Status: unchanged Disposition: HOME, SELF-CARE Condition: Stable Referrals: NON PHYSICIAN (PCP) PMD Patient Instructions: Abdominal Pain, Adult, Food Choices for Gastroesophageal Reflux Disease, Adult, [id number] Additional Instructions: Please contact your prescribing physician to discuss possibly discontinuing the medicine, versus changing the medication. Patient is provided with the discharge instructions notified to follow up with primary doctor in the next 2-3 days otherwise return to the er with any worsening symptoms. Please note that this report is being documented using [employer] technology. This can lead to erroneous entry secondary to incorrect interpretation by the dictating instrument. Gareth Moreland DO Aug 04, 2019 18:25
== END 2019-08-04 15:58 | disposition home or self-care (01) ==
LOC: EMR 15:51
DX: T50.905A Adverse effect of unspecified drugs, medicaments and biological substances, initial encounter (principal); Y92.9 Unspecified place or not applicable; R11.0 Nausea; Z88.2 Allergy status to sulfonamides; I10 Essential (primary) hypertension; E11.9 Type 2 diabetes mellitus without complications; Z86.718 Personal history of other venous thrombosis and embolism
CPT/HCPCS: 99281

== ENCOUNTER → 2019-10-23 | Outpatient (CLI) | payer MEDICARE, OTHER ==
[2019-10-23 17:17] LABS: BASOPHILS % (AUTO) 0.8 % (0.0-2.0); EOSINOPHILS % (AUTO) 0.7 % (0.0-3.0); HEMATOCRIT 43.1 % (37.0-47.0); HEMOGLOBIN 12.3 G/DL (12.0-16.0); LYMPHOCYTES % (AUTO) 12.9 % (20.0-45.0); MEAN CORPUSCULAR VOLUME 86 FL (80-99); MONOCYTES % (AUTO) 5.1 % (1.0-10.0); NEUTROPHILS % (AUTO) 80.4 % (45.0-75.0); PLATELET COUNT 371 K/UL (150-450); RED BLOOD COUNT 5.01 M/UL (4.20-5.40); RED CELL DISTRIBUTION WIDTH 16.3 % (11.6-14.8); WHITE BLOOD COUNT 16.4 K/UL (4.8-10.8)
[2019-10-23 17:28] LABS: APPEARANCE,URINE SLIGHTLY CLOUDY; BILIRUBIN, URINE 1+ (NEGATIVE); GLUCOSE, URINE (UA) NEGATIVE (NEGATIVE); KETONES,URINE 1+ (NEGATIVE); LEUKOCYTE ESTERASE ,URINE 1+ (NEGATIVE); NITRITE,URINE NEGATIVE (NEGATIVE); PH,URINE 6 (4.5-8.0); PROTEIN,URINE 1+ (NEGATIVE); UROBILINOGEN,URINE 1 MG/DL (0.0-1.0)
[2019-10-23 17:31] LABS: COLOR,URINE AMBER
[2019-10-23 17:44] LABS: ALANINE AMINOTRANSFERASE 25 U/L (12-78); ALBUMIN 3.4 G/DL (3.4-5.0); ALBUMIN/GLOBULIN RATIO 0.7 (1.0-2.7); ALKALINE PHOSPHATASE 87 U/L (46-116); AMYLASE 63 U/L (25-115); ANION GAP 13 mmol/L (5-15); ASPARTATE AMINO TRANSFERASE 15 U/L (15-37); BILIRUBIN,TOTAL 0.2 MG/DL (0.2-1.0); BLOOD UREA NITROGEN 16 mg/dL (7-18); CALCIUM 9.5 MG/DL (8.5-10.1); CARBON DIOXIDE 26 MMOL/L (21-32); CHLORIDE 98 MMOL/L (98-107); POTASSIUM 3.4 MMOL/L (3.5-5.1); SODIUM 137 MMOL/L (136-145)
== END | disposition home or self-care (01) ==
LOC: LAB 16:15
DX: E11.9 Type 2 diabetes mellitus without complications (principal); D68.59 Other primary thrombophilia
CPT/HCPCS: 36415; 80053; 81001; 82043; 82150; 83036; 83690; 84443; 85025

== ENCOUNTER 2019-12-07 19:29 | Emergency (ER) | payer MEDICARE, OTHER ==
[~2019-12-07] VITALS: Ht 185.4 cm; Wt 186.0 kg
--- NOTE | 2019-12-07 19:30 | NUR ---
ED Nurse Note: Patient walked in from home d/t left leg pain x 2 days and stomach cramping x 2 days, rates aching at 8/10. Denies n/v/d. Patient aao x 4 and normally ambulatory with walker. Patient reports taking tylenol 2 hours prior to arrival, pain unrelieved. Patient placed on panel monitor. No acute distress noted during assessment.
--- NOTE | 2019-12-07 19:44 | NUR ---
ED Nurse Note: ERMD at bedside
[2019-12-07 19:46] VITALS: BP 122/73
--- NOTE | 2019-12-07 19:59 | Emergency Room Report ---
History of Present Illness General Chief Complaint: Pain Present Illness HPI Disclaimer: Please note that this report is being documented using [employer] technology. This can lead to erroneous entry secondary to incorrect interpretation by the dictating instrument. HPI: 59-year-old female history of diabetes, hypertension, DVT, morbid obesity, gout, sciatica presents with multiple complaints. First complaint is left lower extremity pain, she states she is having low back pain rating down the left lower extremity for the past 3 days. She states she has had similar episodes in the past related to her sciatica. She does use a wheelchair and walks with a walker. She states she was moving out of her old residence when this started. Denies any other specific trauma. Also some lower abdominal cramping present for the past few days. No nausea no vomiting no urinary complaints. Intermittent diarrhea. No fevers or cough or shortness of breath. PMH: As above PSH: Reviewed Social Hx: Denies smoking drinking or illicit drug use Allergies: Coded Allergies: SULFA (SULFONAMIDE ANTIBIOTICS) (Unverified Allergy, Unknown, 05/02/15) allergy history per Dr. 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: No Patient History Reviewed Nursing Documentation: PMH: Agreed; PSxH: Agreed Nursing Documentation-PMH Hx Cardiac Problems: Yes - DVT Hx Hypertension: Yes Hx Asthma: Yes Hx Diabetes: Yes Hx Cancer: No - - Hx Gastrointestinal Problems: Yes - GI bleeding Hx Neurological Problems: No Hx Cerebrovascular Accident: No - CELLULITIS LOWER ABD AND BI-LAT LEGS Review of Systems All Other Systems: negative except mentioned in HPI Physical Exam Vital Signs Date Time Temp Pulse Resp B/P (MAP) Pulse Ox O2 Delivery O2 Flow Rate FiO2 12/07/19 19:40 98.4 90 20 122/88 (99) 99 Room Air Sp02 EP Interpretation: reviewed, normal General Appearance: well appearing, no apparent distress, Stupor - Morbidly obese Head: normocephalic, atraumatic Eyes: bilateral eye PERRL, bilateral eye EOMI ENT: hearing grossly normal, moist mucus membranes Neck: full range of motion, supple Respiratory: lungs clear, normal breath sounds, no rhonchi, no respiratory distress, no retraction, no wheezing Cardiovascular #1: normal peripheral pulses, regular rate, rhythm, no murmur Gastrointestinal: non tender, soft, non-distended, no guarding Musculoskeletal: other - Chronic edema noted to bilateral lower extremities. No erythema no warmth no tenderness to the left lower extremity noted. Neurologic: alert, oriented x3, no focal defects Skin: normal color, warm/dry Medical Decision Making Diagnostic Impression: Primary Impression: Lower abdominal pain Additional Impression: Sciatica of left side ER Course MDM: Differential included but not limited to sciatica, UTI, low back strain, overexertion, colitis, diverticulitis, pation, chronic pain syndrome, gout name a few Clinical course-studies were sent, analgesics given. Patient was in no acute distress on exam. Abdomen nontender to palpation. She did complain of crampy lower abdominal pain. Laboratory studies demonstrated mild leukocytosis. Urinalysis negative for infection. She has lower abdominal pain with some intermittent diarrhea I decided to treat empirically for possible colitis versus diverticulitis. Her pain improved after analgesics in the ER. Her vital signs were otherwise stable. She will be discharged home with her continued outpatient medications. Follow-up PMD. Return precautions given. Labs - Laboratory Tests Test 12/07/19 20:00 12/07/19 20:28 White Blood Count 14.0 K/UL (4.8-10.8) H Red Blood Count 4.39 M/UL (4.20-5.40) Hemoglobin 11.0 G/DL (12.0-16.0) L Hematocrit 36.5 % (37.0-47.0) L Mean Corpuscular Volume 83 FL (80-99) Mean Corpuscular Hemoglobin 25.2 PG (27.0-31.0) L Mean Corpuscular Hemoglobin Concent 30.3 G/DL (32.0-36.0) L Red Cell Distribution Width 16.4 % (11.6-14.8) H Platelet Count 291 K/UL (150-450) Mean Platelet Volume 7.3 FL (6.5-10.1) Neutrophils (%) (Auto) 77.1 % (45.0-75.0) H Lymphocytes (%) (Auto) 15.8 % (20.0-45.0) L Monocytes (%) (Auto) 5.2 % (1.0-10.0) Eosinophils (%) (Auto) 0.9 % (0.0-3.0) Basophils (%) (Auto) 1.0 % (0.0-2.0) Sodium Level 140 MMOL/L (136-145) Potassium Level 3.6 MMOL/L (3.5-5.1) Chloride Level 101 MMOL/L (98-107) Carbon Dioxide Level 33 MMOL/L (21-32) H Anion Gap 6 mmol/L (5-15) Blood Urea Nitrogen 13 mg/dL (7-18) Creatinine 0.9 MG/DL (0.55-1.30) Estimated Glomerular Filtration Rate > 60 mL/min (>60) Glucose Level 89 MG/DL (74-106) Calcium Level 9.2 MG/DL (8.5-10.1) Total Bilirubin 0.2 MG/DL (0.2-1.0) Aspartate Amino Transferase (AST) 15 U/L (15-37) Alanine Aminotransferase (ALT) 23 U/L (12-78) Alkaline Phosphatase 93 U/L (46-116) Total Protein 8.3 G/DL (6.4-8.2) H Albumin 3.4 G/DL (3.4-5.0) Globulin 4.9 g/dL Albumin/Globulin Ratio 0.7 (1.0-2.7) L Lipase 198 U/L (73-393) Urine Color Yellow Urine Appearance Clear Urine pH 6 (4.5-8.0) Urine Specific [place] 1.015 (1.005-1.035) Urine Protein Negative (NEGATIVE) Urine Glucose (UA) Negative (NEGATIVE) Urine Ketones Negative (NEGATIVE) Urine Blood Negative (NEGATIVE) Urine Nitrite Negative (NEGATIVE) Urine Bilirubin Negative (NEGATIVE) Urine Urobilinogen 1 MG/DL (0.0-1.0) H Urine Leukocyte Esterase Negative (NEGATIVE) Last Vital Signs Date Time Temp Pulse Resp B/P (MAP) Pulse Ox O2 Delivery O2 Flow Rate FiO2 12/07/19 19:46 98.4 87 15 122/73 100 Room Air Status: improved Disposition: HOME, SELF-CARE Condition: Stable Referrals: NON PHYSICIAN (PCP) Bradley Nickerson M.D. Dec 07, 2019 19:59
[2019-12-07] MEDS ORDERED: Morphine Sulfate 4mg/ml Inj (IV USE ONLY) IVP ONE (20:00)
[2019-12-07 20:21] LABS: ANION GAP 6 mmol/L (5-15); BLOOD UREA NITROGEN 13 mg/dL (7-18); CALCIUM 9.2 MG/DL (8.5-10.1); CARBON DIOXIDE 33 MMOL/L (21-32); CHLORIDE 101 MMOL/L (98-107); CREATININE 0.9 MG/DL (0.55-1.30); EOSINOPHILS % (AUTO) 0.9 % (0.0-3.0); HEMATOCRIT 36.5 % (37.0-47.0); LYMPHOCYTES % (AUTO) 15.8 % (20.0-45.0); MEAN CORPUSCULAR VOLUME 83 FL (80-99); MONOCYTES % (AUTO) 5.2 % (1.0-10.0); NEUTROPHILS % (AUTO) 77.1 % (45.0-75.0); PLATELET COUNT 291 K/UL (150-450); POTASSIUM 3.6 MMOL/L (3.5-5.1); RED BLOOD COUNT 4.39 M/UL (4.20-5.40); RED CELL DISTRIBUTION WIDTH 16.4 % (11.6-14.8); SODIUM 140 MMOL/L (136-145)
[2019-12-07 20:26] LABS: ALANINE AMINOTRANSFERASE 23 U/L (12-78); ALBUMIN 3.4 G/DL (3.4-5.0); ALBUMIN/GLOBULIN RATIO 0.7 (1.0-2.7); ALKALINE PHOSPHATASE 93 U/L (46-116); ASPARTATE AMINO TRANSFERASE 15 U/L (15-37); BILIRUBIN,TOTAL 0.2 MG/DL (0.2-1.0)
--- NOTE | 2019-12-07 20:31 | NUR ---
ED Nurse Note: Urine sent to lab
[2019-12-07 20:42] LABS: APPEARANCE,URINE CLEAR; BILIRUBIN, URINE NEGATIVE (NEGATIVE); COLOR,URINE YELLOW; GLUCOSE, URINE (UA) NEGATIVE (NEGATIVE); KETONES,URINE NEGATIVE (NEGATIVE); LEUKOCYTE ESTERASE ,URINE NEGATIVE (NEGATIVE); NITRITE,URINE NEGATIVE (NEGATIVE); PH,URINE 6 (4.5-8.0); PROTEIN,URINE NEGATIVE (NEGATIVE); UROBILINOGEN,URINE 1 MG/DL (0.0-1.0)
[2019-12-07] MEDS ORDERED: METRONIDAZOLE500 MG ORAL (21:27)
[2019-12-07] MEDS ORDERED: CIPROFLOXACIN500 M2 ORAL (21:27)
--- NOTE | 2019-12-07 21:44 | NUR ---
ED Nurse Note: Patient requested pain medication prior to discharge, ERMDemetri aware, patient states Hydrocodone makes her swell, TAI informed. Hydrocodone returned to pyxis.
[2019-12-07] MEDS ORDERED: HYDROcodone/Acetamin 7.5/325 tab ORAL ONE (21:45)
[2019-12-07 22:00] VITALS: BP 108/68
[2019-12-07] MEDS ORDERED: Tylenol #3 tab (300mg/30mg) ORAL ONE (22:00)
--- NOTE | 2019-12-07 22:00 | NUR ---
ER DISCHARGE NOTE: Patient is cleared to be discharged per ERMD, pt is aox4, on room air, with stable vital signs. pt was given dc and prescription instructions, pt was able to verbalize understanding, pt id band and iv site removed intact without complications. pt ambulatory using wheelchair and cane. pt took all belongings. pt discharged and picked up by son. patient stable upon discharge.
== END 2019-12-07 22:00 | disposition home or self-care (01) ==
LOC: EMR 19:50
DX: R10.30 Lower abdominal pain, unspecified (principal); M54.32 Sciatica, left side; I10 Essential (primary) hypertension; Z86.718 Personal history of other venous thrombosis and embolism; E11.9 Type 2 diabetes mellitus without complications; Z88.2 Allergy status to sulfonamides; E66.01 Morbid (severe) obesity due to excess calories; Z68.43 Body mass index [BMI] 50.0-59.9, adult
CPT/HCPCS: 36415; 80053; 81003; 83690; 85025; 96374; 99284; J2270

== ENCOUNTER 2019-12-18 19:37 | Inpatient (IN) | payer MEDICARE, OTHER ==
[~2019-12-18] VITALS: Ht 185.4 cm; Wt 186.0 kg
[~2019-12-18 19:37] MED LIST changes: +METRONIDAZOLE500 MG ORAL
--- NOTE | 2019-12-18 19:55 | NUR ---
ED Nurse Note: Patient went into the ED via wheelchair with c/o open boil on left foot. Patients left foot is wrapped in bandage upon coming and stated that she has cellulitis in that area that became infected. Patient is afebrile. Patient also c/o bilateral arm rash and has also swelling on right foot. Patient placed on monitor bed.
[2019-12-18 20:00] VITALS: BP 129/59
--- NOTE | 2019-12-18 20:00 | NUR ---
ED Nurse Note: ERMD at bedside
--- NOTE | 2019-12-18 20:12 | Emergency Room Report ---
History of Present Illness General Chief Complaint: Skin Rash/Abscess Source: Patient Present Illness HPI Patient had debridement of ulcer on her left ankle 2 days ago. Today she was seen at a doctor's office with an allergic reaction. She was given a shot in the muscle. Right now the rash is worsening. In addition she stated her doctor wants her to be admitted to the hospital for IV antibiotics. She denies any shortness of breath or throat swelling. She denies fevers or chills. The patient has chronic venous stasis ulcers. She rates the pain in her feet as 5/ 10. No sore throat, chest pain, palpitations, nausea, vomiting, diarrhea, dysuria, abdominal pain, shortness of breath, depression, anxiety, visual changes, dizziness, headache. The patient takes Eliquis for DVT. She was seen earlier this year for cholecystitis. Discharge diagnoses: (1) Acute cholecystitis (2) S/P laparoscopic cholecystectomy (3) Morbid obesity (4) Diabetes type 2, controlled Allergies: Coded Allergies: SULFA (SULFONAMIDE ANTIBIOTICS) (Unverified Allergy, Unknown, 05/02/15) allergy history per Dr. 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 She uses a motorized wheelchair Reviewed Nursing Documentation: PMH: Agreed; PSxH: Agreed Nursing Documentation-PMH Hx Cardiac Problems: Yes - DVT Hx Hypertension: Yes Hx Asthma: Yes Hx Diabetes: Yes Hx Cancer: No - - Hx Gastrointestinal Problems: Yes - GI bleeding Hx Neurological Problems: No Hx Cerebrovascular Accident: No - CELLULITIS LOWER ABD AND BI-LAT LEGS Review of Systems All Other Systems: negative except mentioned in HPI Physical Exam Vital Signs Date Time Temp Pulse Resp B/P (MAP) Pulse Ox O2 Delivery O2 Flow Rate FiO2 12/18/19 19:51 98.8 87 20 129/59 (82) 99 Room Air Sp02 EP Interpretation: reviewed, normal General Appearance: no apparent distress, GCS 15, non-toxic, obese, Chronically Ill Head: normocephalic Eyes: bilateral eye normal inspection, bilateral eye PERRL, bilateral eye EOMI ENT: moist mucus membranes Neck: supple Respiratory: lungs clear, normal breath sounds Cardiovascular #1: regular rate, rhythm Cardiovascular #2: 2+ radial (R) Gastrointestinal: normal inspection, normal bowel sounds, non tender, no mass, non-distended, overweight Genitourinary: no CVA tenderness Musculoskeletal: back normal, no calf tenderness, tender - Bilateral lower extremities, swelling - Bilateral lower extremities, other - Splint and dressing left lower leg Neurologic: alert, oriented x3, grossly normal Psychiatric: mood/affect normal Skin: rash, warm/dry, other - Venous disease and erythema right medial malleolus Medical Decision Making Diagnostic Impression: Primary Impression: Left leg cellulitis Additional Impressions: Allergic reaction Qualified Codes: T78.40XA - Allergy, unspecified, initial encounter Morbid obesity Venous stasis ulcer of left ankle Qualified Codes: I83.023 - Varicose veins of left lower extremity with ulcer of ankle; L97.329 - Non-pressure chronic ulcer of left ankle with unspecified severity History of DVT (deep vein thrombosis) ER Course Patient presents with 2 problems. One is allergic reaction. There is no evidence of anaphylaxis at the moment. However the patient will be treated with a dose of IM epinephrine as there was some other medications given to her in her doctor's office. Patient obviously is placed on a pvc monitor and evaluated with EKG, chest x-ray, ankle x-ray on the left-hand side and labs. Second problem is venous ulcer with cellulitis. Patient will have labs and x- rays done to evaluate this. Normal sinus rhythm with nonspecific ST-T wave changes Discussed with [place] admitting MD, Dr. Ashraf. Based on prior cultures, zosyn and vancomycin begun. Difficult IV access. Leukocytosis. Elevated ESR and C-reactive protein. CMP essentially normal. Laboratory Tests Test 12/18/19 21:20 White Blood Count 17.2 K/UL (4.8-10.8) H Red Blood Count 4.05 M/UL (4.20-5.40) L Hemoglobin 10.4 G/DL (12.0-16.0) L Hematocrit 33.3 % (37.0-47.0) L Mean Corpuscular Volume 82 FL (80-99) Mean Corpuscular Hemoglobin 25.6 PG (27.0-31.0) L Mean Corpuscular Hemoglobin Concent 31.2 G/DL (32.0-36.0) L Red Cell Distribution Width 16.6 % (11.6-14.8) H Platelet Count 355 K/UL (150-450) Mean Platelet Volume 7.2 FL (6.5-10.1) Neutrophils (%) (Auto) 90.7 % (45.0-75.0) H Lymphocytes (%) (Auto) 6.9 % (20.0-45.0) L Monocytes (%) (Auto) 1.7 % (1.0-10.0) Eosinophils (%) (Auto) 0.0 % (0.0-3.0) Basophils (%) (Auto) 0.6 % (0.0-2.0) Erythrocyte Sedimentation Rate 105 MM/HR (0-30) H Sodium Level 137 MMOL/L (136-145) Potassium Level 3.7 MMOL/L (3.5-5.1) Chloride Level 100 MMOL/L (98-107) Carbon Dioxide Level 31 MMOL/L (21-32) Anion Gap 6 mmol/L (5-15) Blood Urea Nitrogen 20 mg/dL (7-18) H Creatinine 1.2 MG/DL (0.55-1.30) Estimated Glomerular Filtration Rate 55.4 mL/min (>60) Glucose Level 140 MG/DL (74-106) H Lactic Acid Level 1.50 mmol/L (0.4-2.0) Calcium Level 8.8 MG/DL (8.5-10.1) Magnesium Level 1.8 MG/DL (1.8-2.4) Total Bilirubin 0.4 MG/DL (0.2-1.0) Aspartate Amino Transferase (AST) 25 U/L (15-37) Alanine Aminotransferase (ALT) 27 U/L (12-78) Alkaline Phosphatase 70 U/L (46-116) Total Creatine Kinase 363 U/L (26-308) H Troponin I 0.000 ng/mL (0.000-0.056) C-Reactive Protein, Quantitative 18.8 mg/dL (0.00-0.90) H Pro-B-Type Natriuretic Peptide 209 pg/mL (0-125) H Total Protein 8.2 G/DL (6.4-8.2) Albumin 2.6 G/DL (3.4-5.0) L Globulin 5.6 g/dL Albumin/Globulin Ratio 0.5 (1.0-2.7) L Lipase 369 U/L (73-393) EKG Diagnostic Results Rate: normal Rhythm: NSR ST Segments: no acute changes - Septal changes Rhythm Strip Diag. Results EP Interpretation: yes Rhythm: NSR, no PVC's, no ectopy Chest X-Ray Diagnostic Results Chest X-Ray Diagnostic Results : Chest X-Ray Ordered: Yes # of Views/Limited/Complete: 1 View Indication: Other EP Interpretation: Yes Interpretation: no consolidation, no effusion, no pneumothorax Impression: No acute disease Other X-Ray Diagnostic Results Other X-Ray Diagnostic Results #1: X-Ray ordered: Ankle R # of Views/Limited Vs Complete: 3 View Electronically Signed by: Electronically signed by Flako Nunes MD Other X-Ray Diagnostic Results #2: X-Ray ordered: L ankle # of Views/Limited Vs Complete: 3 View Electronically Signed by: Electronically signed by Flako Nunes MD Last Vital Signs Date Time Temp Pulse Resp B/P (MAP) Pulse Ox O2 Delivery O2 Flow Rate FiO2 12/19/19 02:11 Room Air 12/19/19 01:59 98.0 78 18 132/87 98 Status: improved Disposition: ADMITTED INPATIENT Condition: Serious Flako Nunes MD Dec 18, 2019 20:12
[2019-12-18] MEDS ORDERED: EPINEPHrine 1mg/1ml Amp IM ONE (20:15)
[2019-12-18] MEDS ORDERED: Solu-MEDROL 125mg Inj IVP ONE (20:15)
--- NOTE | 2019-12-18 20:15 | NUR ---
ED Nurse Note: cardiopulmonary technologist at bedside
[2019-12-18] MEDS ORDERED: ALLOPURINOL100 M1 ORAL (20:27)
--- NOTE | 2019-12-18 21:10 | NUR ---
Murray gomes in EDM - 12/18/19 at 2355 by [email or web address] ED Note: BRET
[2019-12-18 21:41] LABS: HEMATOCRIT 33.3 % (37.0-47.0); HEMOGLOBIN 10.4 G/DL (12.0-16.0); LYMPHOCYTES % (AUTO) 6.9 % (20.0-45.0); MEAN CORPUSCULAR VOLUME 82 FL (80-99); NEUTROPHILS % (AUTO) 90.7 % (45.0-75.0); PLATELET COUNT 355 K/UL (150-450); RED BLOOD COUNT 4.05 M/UL (4.20-5.40); RED CELL DISTRIBUTION WIDTH 16.6 % (11.6-14.8); WHITE BLOOD COUNT 17.2 K/UL (4.8-10.8)
[2019-12-18 21:42] LABS: ANION GAP 6 mmol/L (5-15); BASOPHILS % (AUTO) 0.6 % (0.0-2.0); BLOOD UREA NITROGEN 20 mg/dL (7-18); CALCIUM 8.8 MG/DL (8.5-10.1); CARBON DIOXIDE 31 MMOL/L (21-32); CHLORIDE 100 MMOL/L (98-107); CREATININE 1.2 MG/DL (0.55-1.30); MONOCYTES % (AUTO) 1.7 % (1.0-10.0); POTASSIUM 3.7 MMOL/L (3.5-5.1); SODIUM 137 MMOL/L (136-145)
[2019-12-18 21:54] LABS: ALANINE AMINOTRANSFERASE 27 U/L (12-78); ALBUMIN 2.6 G/DL (3.4-5.0); ALBUMIN/GLOBULIN RATIO 0.5 (1.0-2.7); ALKALINE PHOSPHATASE 70 U/L (46-116); ASPARTATE AMINO TRANSFERASE 25 U/L (15-37); BILIRUBIN,TOTAL 0.4 MG/DL (0.2-1.0); CREATINE KINASE 363 U/L (26-308)
[2019-12-18 22:00] VITALS: BP 132/86
--- NOTE | 2019-12-18 23:00 | NUR ---
ED Nurse Note: Unable to establish IV line after multiple attempts by RN and ERMD using a vein finder and AMELIA.
[2019-12-19 00:10] VITALS: BP 128/78
[2019-12-19] MEDS ORDERED: Piperacillin/Tazobactam 3.375 GM in NS 110 ML IVPB ONE (00:15)
[2019-12-19] MEDS ORDERED: Vancomycin 1.5gm/NS Premix 275 ML IVPB ONE (00:15)
--- NOTE | 2019-12-19 00:30 | NUR ---
ED Nurse Note: IV line established. IV fluids and meds started
[2019-12-19] MEDS ORDERED: Morphine Sulfate 2mg/ml Inj(IV/IM USE ONLY) IVP PRN ×2 (00:45→01:45)
--- NOTE | 2019-12-19 01:10 | NUR ---
ED Nurse Note: Report given to SELWYN HERNANDEZ.
--- NOTE | 2019-12-19 01:15 | NUR ---
TRANSFER TO FLOOR: Patient transferred to [facility] at rm 402-1 via gurney accompanied by RN and sound art instructor. Belongings checked and given to RN. Patient transferred safely to bed and endorsed to RN on duty
--- NOTE | 2019-12-19 01:25 | NUR ---
NURSE NOTES: Received pt from Er nurse Nelson. Pt is awake,verbal, and A&Ox4. No sob,fever and cough at the moment. IV is intact and asymptomatic. Pt is bedfast. Bed is in the lowest position,locked and call light within reach. We will keep monitoring the pt.
[2019-12-19] MEDS ORDERED: Miralax 17gm pkt ORAL PRN (01:45)
[2019-12-19] MEDS ORDERED: Morphine Sulfate 4mg/ml Inj (IV USE ONLY) IVP PRN (01:45)
[2019-12-19] MEDS ORDERED: Enoxaparin 40mg Inj SUBQ SCH (02:45)
[2019-12-19] MEDS ORDERED: DiphenhydrAMINE 50mg/ml Inj IVP SCH (02:45)
[2019-12-19] MEDS: DiphenhydrAMINE 50mg/ml Inj IVP PRN ×2 (03:15→18:04)
[2019-12-19 04:00] VITALS: BP 112/76
--- NOTE | 2019-12-19 05:20 | History and Physical ---
History of Present Illness General Reason for Hospitalization: Skin Rash/Abscess Present Illness HPI This is a pleasant morbid obese 59yo AAF who reported for suspected abscess of L dorsal foot. 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 She denies recent admission to the hospital in the last 3 months. She denies recent antibiotic exposure. Patient is currently being seen by home health. This particular wound was first described as a boil roughly 6cm in diameter and recently busted open. It appears healing with normal margins. No sign of continued rash. Otherwise patient denies fever, chills, and night sweats. Allergies: Coded Allergies: SULFA (SULFONAMIDE ANTIBIOTICS) (Unverified Allergy, Unknown, 05/02/15) allergy history per Dr. Jones COVID-19 Screening Contact w/high risk pt: No Recent Travel to affected area: No Experienced COVID-19 symptoms?: No Medication History Scheduled Allopurinol* (Allopurinol*), 100 MG ORAL DAILY, (Reported) Apixaban (Eliquis), 5 MG PO BID, (Reported) Benazepril Hcl* (Benazepril Hcl*), 20 MG ORAL DAILY, (Reported) Ciprofloxacin Hcl* (Ciprofloxacin Hcl*), 500 MG ORAL Q12H Docusate Sodium* (Colace*), 100 MG ORAL TWICE A DAY, (Reported) Febuxostat (Uloric), 40 MG ORAL DAILY, (Reported) Furosemide* (Lasix*), 40 MG ORAL DAILY Hydrochlorothiazide* (Hydrochlorothiazide*), 25 MG ORAL DAILY, (Reported) Ibuprofen (Motrin), 600 MG ORAL THREE TIMES A DAY Liraglutide (Saxenda), 3 MG SQ DAILY, (Reported) Metformin Hcl* (Metformin Hcl*), 500 MG ORAL TWICE A DAY, (Reported) Metronidazole* (Flagyl*), 500 MG ORAL THREE TIMES A DAY Multivitamin (Daily Mario), 1 TAB ORAL DAILY, (Reported) Multivitamin (Daily Mario), 1 TAB ORAL DAILY, (Reported) Scheduled PRN Acetaminophen With Codeine (T#3) (Tylenol With Codeine #3 Tablet), 1 TAB ORAL Q4H PRN for For Pain, (Reported) Hydrocodone Bit/Acetaminophen 7.5-300 Mg Tabl (Vicodin Es 7.5-300 Mg Tablet), 1 TAB ORAL Q4H PRN for For Pain, (Reported) Patient History Healthcare decision maker Resuscitation status Advanced Directive on File Family History Family History: Patient reports no known family medical history. Review of Systems Constitutional: Reports: no symptoms Eye: Reports: no symptoms ENT: Reports: no symptoms Respiratory: Reports: no symptoms Cardiovascular: Reports: no symptoms Gastrointestinal: Reports: no symptoms Genitourinary: Reports: no symptoms Musculoskeletal: Reports: no symptoms Skin: Reports: lesions Psychiatric: Reports: no symptoms Neurological: Reports: no symptoms Endocrine: Reports: no symptoms Hematologic/Lymphatic: Reports: no symptoms Physical Exam General Appearance: WD/WN, no apparent distress, alert Lines, tubes and drains: peripheral HEENT: normocephalic, atraumatic, PERRL, EOMI, no JVD Neck: non-tender, supple Respiratory/Chest: chest wall non-tender, lungs clear, normal breath sounds Cardiovascular/Chest: normal peripheral pulses, normal rate, regular rhythm Abdomen: normal bowel sounds, non tender Extremities: normal range of motion, non-tender Skin Exam: other - venous stasis 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 II-XII grossly normal Last 24 Hour Vital Signs Date Time Temp Pulse Resp B/P (MAP) Pulse Ox O2 Delivery O2 Flow Rate FiO2 12/19/19 04:00 98.6 80 18 112/76 (88) 97 12/19/19 02:11 Room Air 12/19/19 01:59 98.0 78 18 132/87 98 Room Air 12/19/19 01:45 98.0 12/19/19 00:10 98.5 87 18 128/78 99 Room Air 12/18/19 22:00 98.6 85 18 132/86 99 Room Air 12/18/19 20:00 98.8 88 20 129/59 99 Room Air 12/18/19 19:51 98.8 87 20 129/59 (82) 99 Room Air Laboratory Tests Test 12/18/19 21:20 White Blood Count 17.2 K/UL (4.8-10.8) H Red Blood Count 4.05 M/UL (4.20-5.40) L Hemoglobin 10.4 G/DL (12.0-16.0) L Hematocrit 33.3 % (37.0-47.0) L Mean Corpuscular Volume 82 FL (80-99) Mean Corpuscular Hemoglobin 25.6 PG (27.0-31.0) L Mean Corpuscular Hemoglobin Concent 31.2 G/DL (32.0-36.0) L Red Cell Distribution Width 16.6 % (11.6-14.8) H Platelet Count 355 K/UL (150-450) Mean Platelet Volume 7.2 FL (6.5-10.1) Neutrophils (%) (Auto) 90.7 % (45.0-75.0) H Lymphocytes (%) (Auto) 6.9 % (20.0-45.0) L Monocytes (%) (Auto) 1.7 % (1.0-10.0) Eosinophils (%) (Auto) 0.0 % (0.0-3.0) Basophils (%) (Auto) 0.6 % (0.0-2.0) Erythrocyte Sedimentation Rate 105 MM/HR (0-30) H Sodium Level 137 MMOL/L (136-145) Potassium Level 3.7 MMOL/L (3.5-5.1) Chloride Level 100 MMOL/L (98-107) Carbon Dioxide Level 31 MMOL/L (21-32) Anion Gap 6 mmol/L (5-15) Blood Urea Nitrogen 20 mg/dL (7-18) H Creatinine 1.2 MG/DL (0.55-1.30) Estimat Glomerular Filtration Rate 55.4 mL/min (>60) Glucose Level 140 MG/DL (74-106) H Lactic Acid Level 1.50 mmol/L (0.4-2.0) Calcium Level 8.8 MG/DL (8.5-10.1) Magnesium Level 1.8 MG/DL (1.8-2.4) Total Bilirubin 0.4 MG/DL (0.2-1.0) Aspartate Amino Transf (AST/SGOT) 25 U/L (15-37) Alanine Aminotransferase (ALT/SGPT) 27 U/L (12-78) Alkaline Phosphatase 70 U/L (46-116) Total Creatine Kinase 363 U/L (26-308) H Troponin I 0.000 ng/mL (0.000-0.056) C-Reactive Protein, Quantitative 18.8 mg/dL (0.00-0.90) H Pro-B-Type Natriuretic Peptide 209 pg/mL (0-125) H Total Protein 8.2 G/DL (6.4-8.2) Albumin 2.6 G/DL (3.4-5.0) L Globulin 5.6 g/dL Albumin/Globulin Ratio 0.5 (1.0-2.7) L Lipase 369 U/L (73-393) Height (Feet): 6 Height (Inches): 1.00 Weight (Pounds): 410 Medications Current Medications Medications (Trade) Dose Ordered Sig/Key Route PRN Reason Start Time Stop Time Status Last Admin Dose Admin Acetaminophen (Tylenol) 650 mg Q4H PRN ORAL Mild Pain (Pain Scale 1-3) 12/19/19 01:45 01/18/20 01:44 Allopurinol (Zyloprim) 100 mg DAILY ORAL 12/19/19 09:00 01/18/20 08:59 Apixaban (Eliquis) 5 mg BID ORAL 12/19/19 09:00 03/18/20 08:59 Dextrose (Dextrose 50%) 25 ml Q30M PRN IV Hypoglycemia 12/19/19 01:45 03/18/20 01:44 Dextrose (Dextrose 50%) 50 ml Q30M PRN IV Hypoglycemia 12/19/19 01:45 03/18/20 01:44 Diphenhydramine HCl (Benadryl) 25 mg Q6H PRN IVP Itching 12/19/19 03:15 01/18/20 03:14 12/19/19 03:15 Docusate Sodium (Colace) 100 mg EVERY 12 HOURS ORAL 12/19/19 09:00 01/18/20 08:59 Famotidine (Pepcid) 40 mg DAILY ORAL 12/19/19 09:00 03/18/20 08:59 Furosemide (Lasix) 40 mg DAILY ORAL 12/19/19 09:00 01/18/20 08:59 Hydrochlorothiazide (Hydrodiuril) 25 mg DAILY ORAL 12/19/19 09:00 01/18/20 08:59 Metformin HCl (Glucophage) 500 mg TWICE A DAY ORAL 12/19/19 09:00 01/18/20 08:59 Morphine Sulfate (Morphine Sulfate) 2 mg Q6H PRN IVP Moderate Pain (Pain Scale 4-6) 12/19/19 01:45 12/26/19 01:44 Morphine Sulfate (Morphine Sulfate) 4 mg Q6H PRN IVP Severe Pain (Pain Scale 7-10) 12/19/19 01:45 12/26/19 01:44 Multivitamins (Multivitamins) 1 tab DAILY ORAL 12/19/19 09:00 01/18/20 08:59 Ondansetron HCl (Zofran) 4 mg Q6H PRN IVP Nausea & Vomiting 12/19/19 01:45 01/18/20 01:44 Piperacillin Sod/ Tazobactam Sod 3.375 gm/Sodium Chloride 110 ml @ 27.5 mls/hr EVERY 8 HOURS IVPB 12/19/19 06:00 12/24/19 05:59 Polyethylene Glycol (Miralax) 17 gm HSPRN PRN ORAL Constipation 12/19/19 01:45 01/18/20 01:44 Assessment/Plan Problem List: (1) Sepsis Assessment & Plan: Examined with nurse at bedside. The actual wound appears with pink granulation tissue no associated rash Patient does have an initial WBC of 17.000. No systemic signs of infection, absent of fever. ORDERS - Continue on Zosyn 3.375mg q8hrs - Likely transition to PO antibiotic course once normalization of wbc - Nurse wound care to be consulted - Unable to culture wound (without drainage) ICD Codes: A41.9 - Sepsis, unspecified organism SNOMED: 56974159 (2) DVT, bilateral lower limbs Assessment & Plan: Continue on anticoagulation ICD Codes: I82.403 - Acute embolism and thrombosis of unspecified deep veins of lower extremity, bilateral SNOMED: 581401291, 527748988 (3) Factor 5 Leiden mutation, heterozygous Assessment & Plan: as above ICD Codes: D68.8 - Factor 5 Leiden mutation, heterozygous SNOMED: 076541534 (4) Venous stasis ulcer of left ankle ICD Codes: I83.023 - Varicose veins of left lower extremity with ulcer of ankle ; L97.329 - Non-pressure chronic ulcer of left ankle with unspecified severity SNOMED: 754295764, [id number] Qualifiers: Qualified Codes: I83.023 - Varicose veins of left lower extremity with ulcer of ankle; L97.329 - Non-pressure chronic ulcer of left ankle with unspecified severity Siddharth Ashraf D.O. Dec 19, 2019 05:20
[2019-12-19] MEDS: Piperacillin/Tazobactam 3.375 GM in NS 110 ML IVPB SCH ×3 (06:24→21:03)
--- NOTE | 2019-12-19 07:15 | NUR ---
NURSE HAND-OFF: Important Events on Shift:[nothing] Patient Status: [stable] Diet: [R] Pending Orders: [n/a] Pending Results/Labs:[cbc,bmp] Pending MD notification: Dr Ashraf came and saw the patient Latest Vital Signs: Temperature 98.6 , Pulse 80 , B/P 112 /76 , Respiratory Rate 18 , O2 SAT 97 , Room Air, O2 Flow Rate . Vital Sign Comment: [] Latest Ponce Fall Score: 20 Fall Risk: Low Risk Safety Measures: Call light Within Reach, Bed Alarm , Side Rails Side Rails x2, Bed position Low and Locked. Fall Precautions: Patient Fall Education Report given to [MARY Nelson].
--- NOTE | 2019-12-19 07:24 | NUR ---
NURSE NOTES: pt is asleep in the bed. respiration is even and unlabored. no facial grimace for pain noted. Left AC IV line inplace and intact. no acute distress noted. call light is within reach, will follow plan of care.
[2019-12-19 08:00] VITALS: BP 130/72
[2019-12-19] MEDS ORDERED: Docusate 100mg cap ORAL SCH (09:00)
[2019-12-19] MEDS: Allopurinol 100mg Tab ORAL SCH (09:25)
[2019-12-19] MEDS: Docusate 100mg cap ORAL SCH ×2 (09:25→21:03)
[2019-12-19] MEDS: Eliquis 5mg tablet ORAL SCH ×2 (09:25→18:04)
[2019-12-19] MEDS: metFORMIN 500mg tab ORAL SCH ×2 (09:25→18:04)
[2019-12-19] MEDS: hydroCHLOROthiazide 25mg cap ORAL SCH (09:26)
[2019-12-19] MEDS: Furosemide 40mg tab ORAL SCH (09:26)
--- NOTE | 2019-12-19 09:41 | Diagnostic Imaging Report ---
EXAM: X-RAY XRAY Ankle Compl Min 3v R CLINICAL HISTORY: Ankle pain. COMPARISON: None FINDINGS: Total of 3 views of the right ankle were obtained. The subtalar joint is narrowed and indistinct with some peripheral changes noted at the talonavicular junction and also along the posterior facet of the subtalar joint. There is narrowing of Bohler's angle. No definite acute fractures seen. Ankle mortise is anatomic. There is soft tissue swelling. IMPRESSION: NO DEFINITE ACUTE FRACTURE SEEN. GENERALIZED SOFT TISSUE SWELLING. SUBTALAR JOINT APPEARS NARROWED AND INDISTINCT WITH PROLIFERATIVE CHANGES BOTH ANTERIORLY AND POSTERIORLY SUGGESTING UNDERLYING ARTHRITIC CHANGES.
--- NOTE | 2019-12-19 09:44 | Diagnostic Imaging Report ---
EXAM: X-RAY XRAY Ankle Compl Min 3v L CLINICAL HISTORY: Ankle pain. COMPARISON: None FINDINGS: Total of 3 views of the left ankle were obtained. There are similar changes compared to the contralateral right. Narrowing of Bohler's angle with indistinctness subtalar joints noted. Definitive osteophyte noted both anteriorly and posteriorly. No definite acute fractures seen. Ankle mortise appears anatomic. There is mild generalized soft tissue swelling IMPRESSION: SOFT TISSUE SWELLING. NO DEFINITE ACUTE FRACTURE. APPARENT ARTHRITIC CHANGES OF THE SUBTALAR JOINT IS SIMILAR TO THE CONTRALATERAL RIGHT
--- NOTE | 2019-12-19 09:44 | Diagnostic Imaging Report ---
Procedure: XRAY Chest 1v Reason for study: Chest pain Comparison films: 01/02/2019. FINDINGS: Radiograph is underpenetrated. Vascularity is normal. The lung ruiz are clear bilaterally. Cardiac and mediastinal silhouette are within normal limits. CP angles are sharp. The bony thorax appear unremarkable. IMPRESSION: NO ACUTE CARDIOPULMONARY DISEASE.
--- NOTE | 2019-12-19 10:19 | NUR ---
*-*DISCHARGE PLANNING*-* PATIENT HAS BEEN REFERRED TO: [facility] P: [phone]
--- NOTE | 2019-12-19 11:59 | Infectious Diseases Prog Note ---
Assessment/Plan Assessment/Plan Full consult dictated: A) 1) left foot cellulitis/abscess/boil, abscess/boil ruptured, sepsis, leukocytosis 2) pmh noted 3) allergies - nkda P) 1) vancomycin and zosyn 2) f/u on cultures 3) monitor labs/wbc 4) thank you Subjective Allergies: Coded Allergies: SULFA (SULFONAMIDE ANTIBIOTICS) (Unverified Allergy, Unknown, 05/02/15) allergy history per Dr. Jones Objective Last 24 Hour Vital Signs Date Time Temp Pulse Resp B/P (MAP) Pulse Ox O2 Delivery O2 Flow Rate FiO2 12/19/19 08:00 97.8 91 18 130/72 (91) 98 12/19/19 04:00 98.6 80 18 112/76 (88) 97 12/19/19 02:11 Room Air 12/19/19 01:59 98.0 78 18 132/87 98 Room Air 12/19/19 01:45 98.0 12/19/19 00:10 98.5 87 18 128/78 99 Room Air 12/18/19 22:00 98.6 85 18 132/86 99 Room Air 12/18/19 20:00 98.8 88 20 129/59 99 Room Air 12/18/19 19:51 98.8 87 20 129/59 (82) 99 Room Air Height (Feet): 6 Height (Inches): 1.00 Weight (Pounds): 410 Laboratory Tests Test 12/18/19 21:20 12/19/19 05:55 White Blood Count 17.2 K/UL (4.8-10.8) H Red Blood Count 4.05 M/UL (4.20-5.40) L Hemoglobin 10.4 G/DL (12.0-16.0) L Hematocrit 33.3 % (37.0-47.0) L Mean Corpuscular Volume 82 FL (80-99) Mean Corpuscular Hemoglobin 25.6 PG (27.0-31.0) L Mean Corpuscular Hemoglobin Concent 31.2 G/DL (32.0-36.0) L Red Cell Distribution Width 16.6 % (11.6-14.8) H Platelet Count 355 K/UL (150-450) Mean Platelet Volume 7.2 FL (6.5-10.1) Neutrophils (%) (Auto) 90.7 % (45.0-75.0) H Lymphocytes (%) (Auto) 6.9 % (20.0-45.0) L Monocytes (%) (Auto) 1.7 % (1.0-10.0) Eosinophils (%) (Auto) 0.0 % (0.0-3.0) Basophils (%) (Auto) 0.6 % (0.0-2.0) Erythrocyte Sedimentation Rate 105 MM/HR (0-30) H Sodium Level 137 MMOL/L (136-145) Potassium Level 3.7 MMOL/L (3.5-5.1) Chloride Level 100 MMOL/L (98-107) Carbon Dioxide Level 31 MMOL/L (21-32) Anion Gap 6 mmol/L (5-15) Blood Urea Nitrogen 20 mg/dL (7-18) H Creatinine 1.2 MG/DL (0.55-1.30) Estimat Glomerular Filtration Rate 55.4 mL/min (>60) Glucose Level 140 MG/DL (74-106) H Lactic Acid Level 1.50 mmol/L (0.4-2.0) Calcium Level 8.8 MG/DL (8.5-10.1) Magnesium Level 1.8 MG/DL (1.8-2.4) Total Bilirubin 0.4 MG/DL (0.2-1.0) Aspartate Amino Transf (AST/SGOT) 25 U/L (15-37) Alanine Aminotransferase (ALT/SGPT) 27 U/L (12-78) Alkaline Phosphatase 70 U/L (46-116) Total Creatine Kinase 363 U/L (26-308) H Troponin I 0.000 ng/mL (0.000-0.056) C-Reactive Protein, Quantitative 18.8 mg/dL (0.00-0.90) H Pro-B-Type Natriuretic Peptide 209 pg/mL (0-125) H Total Protein 8.2 G/DL (6.4-8.2) Albumin 2.6 G/DL (3.4-5.0) L Globulin 5.6 g/dL Albumin/Globulin Ratio 0.5 (1.0-2.7) L Lipase 369 U/L (73-393) Prothrombin Time 11.5 SEC (9.30-11.50) Prothromb Time International Ratio 1.0 (0.9-1.1) Activated Partial Thromboplast Time 25 SEC (23-33) Current Medications Medications (Trade) Dose Ordered Sig/Key Route PRN Reason Start Time Stop Time Status Last Admin Dose Admin Acetaminophen (Tylenol) 650 mg Q4H PRN ORAL Mild Pain (Pain Scale 1-3) 12/19/19 01:45 01/18/20 01:44 Allopurinol (Zyloprim) 100 mg DAILY ORAL 12/19/19 09:00 01/18/20 08:59 12/19/19 09:25 Apixaban (Eliquis) 5 mg BID ORAL 12/19/19 09:00 03/18/20 08:59 12/19/19 09:25 Dextrose (Dextrose 50%) 25 ml Q30M PRN IV Hypoglycemia 12/19/19 01:45 03/18/20 01:44 Dextrose (Dextrose 50%) 50 ml Q30M PRN IV Hypoglycemia 12/19/19 01:45 03/18/20 01:44 Diphenhydramine HCl (Benadryl) 25 mg Q6H PRN IVP Itching 12/19/19 03:15 01/18/20 03:14 12/19/19 03:15 Docusate Sodium (Colace) 100 mg EVERY 12 HOURS ORAL 12/19/19 09:00 01/18/20 08:59 12/19/19 09:25 Famotidine (Pepcid) 40 mg DAILY ORAL 12/19/19 09:00 03/18/20 08:59 12/19/19 09:25 Furosemide (Lasix) 40 mg DAILY ORAL 12/19/19 09:00 01/18/20 08:59 12/19/19 09:26 Hydrochlorothiazide (Hydrodiuril) 25 mg DAILY ORAL 12/19/19 09:00 01/18/20 08:59 12/19/19 09:26 Hydromorphone HCl (Dilaudid) 0.5 mg Q6H PRN IVP For Pain 12/19/19 05:30 12/26/19 05:29 Metformin HCl (Glucophage) 500 mg TWICE A DAY ORAL 12/19/19 09:00 01/18/20 08:59 12/19/19 09:25 Multivitamins (Multivitamins) 1 tab DAILY ORAL 12/19/19 09:00 01/18/20 08:59 12/19/19 09:25 Ondansetron HCl (Zofran) 4 mg Q6H PRN IVP Nausea & Vomiting 12/19/19 01:45 01/18/20 01:44 Piperacillin Sod/ Tazobactam Sod 3.375 gm/Sodium Chloride 110 ml @ 27.5 mls/hr EVERY 8 HOURS IVPB 12/19/19 06:00 12/24/19 05:59 12/19/19 06:24 Polyethylene Glycol (Miralax) 17 gm HSPRN PRN ORAL Constipation 12/19/19 01:45 01/18/20 01:44 Slim Javed MD Dec 19, 2019 11:59
[2019-12-19 12:00] VITALS: BP 125/78
[2019-12-19] MEDS: Hydromorphone 0.5mg/0.5ml inj IVP PRN ×2 (12:06→18:04)
--- NOTE | 2019-12-19 12:09 | NUR ---
P.T Note: P.T evaluation completed and tx initiated. Please refer to P.T evaluation for current functional status.
--- NOTE | 2019-12-19 13:39 | NUR ---
CASE MANAGEMENT:INITIAL REVIEW 59 YR OLD FEMALE ARRIVED TO ED IN WHEELCHAIR FROM HOME CC;SKIN RASH. ABSCESS. SI;LLE CELLULITIS. VENOUS STASIS ULCER OF LEFT ANKLE. 98.8 55 20 132/86 99% ON RA WBC 17.2 H/H 10.4/33.3 BUN 20 TCK 363 CRP 18.8 BNP 209 ALB 2.6 COVID PCR RAPID ~ NEGATIVE CXR ~ NO ACUTE PROCESS RT ANKLE X-RAY ~ NO DEFINITE ACUTE FRACTURE SEEN. GENERALIZED SOFT TISSUE SWELLING. SUBTALAR JOINT APPEARS NARROWED AND INDISTINCT WITH PROLIFERATIVE CHANGES BOTH ANTERIORLY AND POSTERIORLY SUGGESTING UNDERLYING ARTHRITIC CHANGES. LT ANKLE X-RAY ~ SOFT TISSUE SWELLING. NO DEFINITE ACUTE FRACTURE. APPARENT ARTHRITIC CHANGES OF THE SUBTALAR JOINT IS SIMILAR TO THE CONTRALATERAL RIGHT. IS;IV SOLU-MEDROL VANCOMYCIN IV ZOSYN IV IVF NS BOLUS ADMITTED TO MED SURG 12/19/19 @ 0045 MED SURG STATUS DCP;FROM HOME
[2019-12-19] MEDS: Vancomycin 1.25gm/NS Premix q24h IVPB SCH (14:03)
[2019-12-19 14:11] LABS: APPEARANCE,URINE SLIGHTLY CLOUDY; BILIRUBIN, URINE NEGATIVE (NEGATIVE); GLUCOSE, URINE (UA) NEGATIVE (NEGATIVE); KETONES,URINE NEGATIVE (NEGATIVE); LEUKOCYTE ESTERASE ,URINE NEGATIVE (NEGATIVE); NITRITE,URINE NEGATIVE (NEGATIVE); PH,URINE 6 (4.5-8.0); PROTEIN,URINE NEGATIVE (NEGATIVE); UROBILINOGEN,URINE 1 MG/DL (0.0-1.0)
[2019-12-19 14:23] LABS: COLOR,URINE YELLOW
--- NOTE | 2019-12-19 14:29 | NUR ---
*-*DISCHARGE PLANNING*-* PATIENT HAS BEEN REFERRED TO: [facility] P: [phone] S/W [facility], PATIENT CAN RETURN TO ROOM # 42.B SKILLED , UPON DISCHARGE
--- NOTE | 2019-12-19 14:52 | General Progress Note ---
Progress Note Progress Note I did extensive chart review for greater than 30 min. I reviewed previous notes , labs, imaging and discussed with physicians. Haseeb Mccurdy M.D. Dec 19, 2019 14:52
--- NOTE | 2019-12-19 14:53 | Consultation ---
History of Present Illness General Date patient seen: Dec 19, 2019 Reason for Hospitalization: Skin Rash/Abscess Present Illness HPI 59 year old female with multiple medical comorbidities who is well known to me from prior medical / surgical care. She was last seen in the office a few months ago and was doing well. now states she developed a large boil on her right leg that began to drain. since edema, swelling, tenderness. leukocytosis with significantly elevated inflammatory markers. came in to [facility] for [place]. surgery called toe valuate and assist with care. patient seen, chart reviewed,p atient examined. states was doing well until leg began to swell a short time ago. now painful and drained. Allergies: Coded Allergies: SULFA (SULFONAMIDE ANTIBIOTICS) (Unverified Allergy, Unknown, 05/02/15) allergy history per Dr. Jones COVID-19 Screening Contact w/high risk pt: No Recent Travel to affected area: No Experienced COVID-19 symptoms?: No Medication History Scheduled Allopurinol* (Allopurinol*), 100 MG ORAL DAILY, (Reported) Apixaban (Eliquis), 5 MG PO BID, (Reported) Benazepril Hcl* (Benazepril Hcl*), 20 MG ORAL DAILY, (Reported) Ciprofloxacin Hcl* (Ciprofloxacin Hcl*), 500 MG ORAL Q12H Docusate Sodium* (Colace*), 100 MG ORAL TWICE A DAY, (Reported) Febuxostat (Uloric), 40 MG ORAL DAILY, (Reported) Furosemide* (Lasix*), 40 MG ORAL DAILY Hydrochlorothiazide* (Hydrochlorothiazide*), 25 MG ORAL DAILY, (Reported) Ibuprofen (Motrin), 600 MG ORAL THREE TIMES A DAY Liraglutide (Saxenda), 3 MG SQ DAILY, (Reported) Metformin Hcl* (Metformin Hcl*), 500 MG ORAL TWICE A DAY, (Reported) Metronidazole* (Flagyl*), 500 MG ORAL THREE TIMES A DAY Multivitamin (Daily Mario), 1 TAB ORAL DAILY, (Reported) Multivitamin (Daily Mario), 1 TAB ORAL DAILY, (Reported) Scheduled PRN Acetaminophen With Codeine (T#3) (Tylenol With Codeine #3 Tablet), 1 TAB ORAL Q4H PRN for For Pain, (Reported) Hydrocodone Bit/Acetaminophen 7.5-300 Mg Tabl (Vicodin Es 7.5-300 Mg Tablet), 1 TAB ORAL Q4H PRN for For Pain, (Reported) Patient History History Provided By: Patient, Medical Record, PMD Healthcare decision maker Resuscitation status Advanced Directive on File Past Medical/Surgical History Past Medical/Surgical History: (1) Hypokalemia (2) Hypokalemia (3) Atypical psychosis (4) Acute blood loss anemia (5) Thrush (6) Gout (7) Morbid obesity (8) Anemia (9) Back pain (10) Cough (11) Diarrhea (12) SOB (shortness of breath) (13) Flank pain (14) Leukocytosis (15) Leukocytosis (16) Post-menopausal bleeding (17) Vaginal bleeding (18) Hypoalbuminemia (19) Rectal bleeding (20) Venous stasis (21) Hypertension (22) Pneumonitis (23) Obesity (24) HTN (hypertension) (25) Chronic pain (26) Muscle ache (27) Cellulitis, leg (28) Cellulitis, leg (29) Clostridium difficile colitis (30) ACS (acute coronary syndrome) (31) Factor V Leiden (32) Shoulder pain, right (33) Cellulitis of right leg (34) Cellulitis of right leg (35) Chronic wound of extremity (36) Flank pain, acute (37) Injury of lower extremity (38) Left leg cellulitis (39) Bilateral cellulitis of lower leg (40) Bilateral lower leg cellulitis (41) Poor intravenous access (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, recurrent, lower extremity, acute and chronic (43) Deep vein thrombosis (DVT) of left lower extremity (44) Acute DVT of LLE (45) Cellulitis (46) lives on own at home (47) lateral posterior left leg superficial skin breakdown ulcer (48) abdominal wall swelling (49) leg pain (50) probable abscess (51) Acute cholecystitis (52) Diabetes type 2, controlled (53) Acute cholecystitis (54) History of DVT (deep vein thrombosis) (55) Venous stasis ulcer of left ankle (56) Morbid obesity (57) Allergic reaction (58) Left leg cellulitis (59) Sepsis (60) Factor 5 Leiden mutation, heterozygous (61) DVT, bilateral lower limbs Family History Family History: Patient reports no known family medical history. Review of Systems Review of Symptoms General ROS: no weight loss or fever Psychological ROS: no depression or mood changes, no memory loss Ophthalmic ROS: no visual changes or eye irritation ENT ROS: no nasal congestion, hearing loss, dizziness Allergy and Immunology ROS: no allergic symptoms or urticaria Hematological and Lymphatic ROS: no swollen glands, unusual bleeding or bruising Endocrine ROS: no polyuria, polydipsia, weight changes, temperature intolerance Respiratory ROS: no cough, shortness of breath, or wheezing Cardiovascular ROS: no chest pain or dyspnea on exertion Gastrointestinal ROS: denies abdominal pain, bright red blood in stool. Musculoskeletal ROS: no myalgias or arthralgias Neurological ROS: no TIA or stroke symptoms Dermatological ROS: no new or changing skin lesions, rashes or pruritis Physical Exam Physical Exam General appearance: alert, cooperative, no distress, appears stated age Head: Normocephalic, without obvious abnormality, atraumatic Eyes: conjunctivae/corneas clear. PERRL, EOM's intact. Fundi benign Throat: Lips, mucosa, and tongue normal. Teeth and gums normal Neck: supple, symmetrical, trachea midline, no adenopathy, thyroid: not enlarged, symmetric, no tenderness/mass/nodules, no carotid bruit and no JVD Lungs: clear to auscultation bilaterally Heart: regular rate and rhythm, S1, S2 normal, no murmur, click, rub or gallop Abdomen: soft, non-tender. Bowel sounds normal. No masses, no organomegaly Extremities: extremities edema tender warm, swollen, serous drainage Pulses: decreased symmetric Skin: Skin color, texture, turgor normal. No rashes or lesions Neurologic: Grossly normal Last 24 Hour Vital Signs Date Time Temp Pulse Resp B/P (MAP) Pulse Ox O2 Delivery O2 Flow Rate FiO2 12/19/19 12:00 98.2 80 18 125/78 (94) 97 12/19/19 08:00 97.8 91 18 130/72 (91) 98 12/19/19 04:00 98.6 80 18 112/76 (88) 97 12/19/19 02:11 Room Air 12/19/19 01:59 98.0 78 18 132/87 98 Room Air 12/19/19 01:45 98.0 12/19/19 00:10 98.5 87 18 128/78 99 Room Air 12/18/19 22:00 98.6 85 18 132/86 99 Room Air 12/18/19 20:00 98.8 88 20 129/59 99 Room Air 12/18/19 19:51 98.8 87 20 129/59 (82) 99 Room Air Laboratory Tests Test 12/18/19 21:20 12/19/19 05:55 12/19/19 13:50 White Blood Count 17.2 K/UL (4.8-10.8) H Red Blood Count 4.05 M/UL (4.20-5.40) L Hemoglobin 10.4 G/DL (12.0-16.0) L Hematocrit 33.3 % (37.0-47.0) L Mean Corpuscular Volume 82 FL (80-99) Mean Corpuscular Hemoglobin 25.6 PG (27.0-31.0) L Mean Corpuscular Hemoglobin Concent 31.2 G/DL (32.0-36.0) L Red Cell Distribution Width 16.6 % (11.6-14.8) H Platelet Count 355 K/UL (150-450) Mean Platelet Volume 7.2 FL (6.5-10.1) Neutrophils (%) (Auto) 90.7 % (45.0-75.0) H Lymphocytes (%) (Auto) 6.9 % (20.0-45.0) L Monocytes (%) (Auto) 1.7 % (1.0-10.0) Eosinophils (%) (Auto) 0.0 % (0.0-3.0) Basophils (%) (Auto) 0.6 % (0.0-2.0) Erythrocyte Sedimentation Rate 105 MM/HR (0-30) H Sodium Level 137 MMOL/L (136-145) Potassium Level 3.7 MMOL/L (3.5-5.1) Chloride Level 100 MMOL/L (98-107) Carbon Dioxide Level 31 MMOL/L (21-32) Anion Gap 6 mmol/L (5-15) Blood Urea Nitrogen 20 mg/dL (7-18) H Creatinine 1.2 MG/DL (0.55-1.30) Estimat Glomerular Filtration Rate 55.4 mL/min (>60) Glucose Level 140 MG/DL (74-106) H Lactic Acid Level 1.50 mmol/L (0.4-2.0) Calcium Level 8.8 MG/DL (8.5-10.1) Magnesium Level 1.8 MG/DL (1.8-2.4) Total Bilirubin 0.4 MG/DL (0.2-1.0) Aspartate Amino Transf (AST/SGOT) 25 U/L (15-37) Alanine Aminotransferase (ALT/SGPT) 27 U/L (12-78) Alkaline Phosphatase 70 U/L (46-116) Total Creatine Kinase 363 U/L (26-308) H Troponin I 0.000 ng/mL (0.000-0.056) C-Reactive Protein, Quantitative 18.8 mg/dL (0.00-0.90) H Pro-B-Type Natriuretic Peptide 209 pg/mL (0-125) H Total Protein 8.2 G/DL (6.4-8.2) Albumin 2.6 G/DL (3.4-5.0) L Globulin 5.6 g/dL Albumin/Globulin Ratio 0.5 (1.0-2.7) L Lipase 369 U/L (73-393) Prothrombin Time 11.5 SEC (9.30-11.50) Prothromb Time International Ratio 1.0 (0.9-1.1) Activated Partial Thromboplast Time 25 SEC (23-33) Urine Color Yellow Urine Appearance Slightly cloudy Urine pH 6 (4.5-8.0) Urine Specific [place] 1.020 (1.005-1.035) Urine Protein Negative (NEGATIVE) Urine Glucose (UA) Negative (NEGATIVE) Urine Ketones Negative (NEGATIVE) Urine Blood 3+ (NEGATIVE) H Urine Nitrite Negative (NEGATIVE) Urine Bilirubin Negative (NEGATIVE) Urine Urobilinogen 1 MG/DL (0.0-1.0) H Urine Leukocyte Esterase Negative (NEGATIVE) Urine RBC 2-4 /HPF (0 - 2) H Urine WBC 0 /HPF (0 - 2) Urine Squamous Epithelial Cells Moderate /LPF (NONE/OCC) H Urine Bacteria Few /HPF (NONE) Microbiology Date/Time Source Procedure Growth Status 12/19/19 11:43 Nasopharynx SARS-CoV-2 RdRp Gene Assay - Final Complete Height (Feet): 6 Height (Inches): 1.00 Weight (Pounds): 410 Medications Current Medications Medications (Trade) Dose Ordered Sig/Key Route PRN Reason Start Time Stop Time Status Last Admin Dose Admin Acetaminophen (Tylenol) 650 mg Q4H PRN ORAL Mild Pain (Pain Scale 1-3) 12/19/19 01:45 01/18/20 01:44 Allopurinol (Zyloprim) 100 mg DAILY ORAL 12/19/19 09:00 01/18/20 08:59 12/19/19 09:25 Apixaban (Eliquis) 5 mg BID ORAL 12/19/19 09:00 03/18/20 08:59 12/19/19 09:25 Dextrose (Dextrose 50%) 25 ml Q30M PRN IV Hypoglycemia 12/19/19 01:45 03/18/20 01:44 Dextrose (Dextrose 50%) 50 ml Q30M PRN IV Hypoglycemia 12/19/19 01:45 03/18/20 01:44 Diphenhydramine HCl (Benadryl) 25 mg Q6H PRN IVP Itching 12/19/19 03:15 01/18/20 03:14 12/19/19 03:15 Docusate Sodium (Colace) 100 mg EVERY 12 HOURS ORAL 12/19/19 09:00 01/18/20 08:59 12/19/19 09:25 Famotidine (Pepcid) 40 mg DAILY ORAL 12/19/19 09:00 03/18/20 08:59 12/19/19 09:25 Furosemide (Lasix) 40 mg DAILY ORAL 12/19/19 09:00 01/18/20 08:59 12/19/19 09:26 Hydrochlorothiazide (Hydrodiuril) 25 mg DAILY ORAL 12/19/19 09:00 01/18/20 08:59 12/19/19 09:26 Hydromorphone HCl (Dilaudid) 0.5 mg Q6H PRN IVP For Pain 12/19/19 05:30 12/26/19 05:29 12/19/19 12:06 Metformin HCl (Glucophage) 500 mg TWICE A DAY ORAL 12/19/19 09:00 01/18/20 08:59 12/19/19 09:25 Multivitamins (Multivitamins) 1 tab DAILY ORAL 12/19/19 09:00 01/18/20 08:59 12/19/19 09:25 Ondansetron HCl (Zofran) 4 mg Q6H PRN IVP Nausea & Vomiting 12/19/19 01:45 01/18/20 01:44 Piperacillin Sod/ Tazobactam Sod 3.375 gm/Sodium Chloride 110 ml @ 27.5 mls/hr EVERY 8 HOURS IVPB 12/19/19 06:00 12/24/19 05:59 12/19/19 06:24 Polyethylene Glycol (Miralax) 17 gm HSPRN PRN ORAL Constipation 12/19/19 01:45 01/18/20 01:44 Vancomycin HCl (Vanco pharmacy to dose) 1 ea DAILY PRN MISC Per rx protocol 12/19/19 12:00 01/18/20 11:59 Vancomycin/Sodium Chloride 275 ml @ 183.333 mls/hr Q12HR@0100,1300 IVPB 12/19/19 13:00 12/24/19 12:59 12/19/19 14:03 Assessment/Plan Problem List: (1) History of DVT (deep vein thrombosis) ICD Codes: Z86.718 - Personal history of other venous thrombosis and embolism SNOMED: 117908615 (2) Venous stasis ulcer of left ankle Assessment & Plan: chronic outpatient care with podiatry local wound care being provided ICD Codes: I83.023 - Varicose veins of left lower extremity with ulcer of ankle ; L97.329 - Non-pressure chronic ulcer of left ankle with unspecified severity SNOMED: 403712295, 443102471 Qualifiers: Qualified Codes: I83.023 - Varicose veins of left lower extremity with ulcer of ankle; L97.329 - Non-pressure chronic ulcer of left ankle with unspecified severity (3) Morbid obesity ICD Codes: E66.01 - Morbid (severe) obesity due to excess calories SNOMED: 272579054 (4) Allergic reaction ICD Codes: T78.40XA - Allergy, unspecified, initial encounter SNOMED: 167174624 Qualifiers: Qualified Codes: T78.40XA - Allergy, unspecified, initial encounter (5) Left leg cellulitis Assessment & Plan: acute worsening left ankle leg cellulitis states blister now popped serous drainage tender warm edema plain films noted dressings changed keep bilateral lower extremities elevated while in bed xerofoam to left foot and ankle, cover with abd and wrap Podiatry eval abx as per ID okay to ambulate diet as tolerated will follow with recs thank you There are similar changes compared to the contralateral right. Narrowing of Bohler's angle with indistinctness subtalar joints noted. Definitive osteophyte noted both anteriorly and posteriorly. No definite acute fractures seen. Ankle mortise appears anatomic. There is mild generalized soft tissue swelling IMPRESSION: SOFT TISSUE SWELLING. NO DEFINITE ACUTE FRACTURE. APPARENT ARTHRITIC CHANGES OF THE SUBTALAR JOINT IS SIMILAR TO THE CONTRALATERAL RIGHT ICD Codes: L03.116 - Cellulitis of left leg SNOMED: 588358785 (6) Sepsis ICD Codes: A41.9 - Sepsis, unspecified organism SNOMED: 88166463 (7) Factor 5 Leiden mutation, heterozygous ICD Codes: D68.8 - Factor 5 Leiden mutation, heterozygous SNOMED: 038508779 (8) DVT, bilateral lower limbs ICD Codes: I82.403 - Acute embolism and thrombosis of unspecified deep veins of lower extremity, bilateral SNOMED: 244744815, 725059171 (9) Acute cholecystitis ICD Codes: K81.0 - Acute cholecystitis SNOMED: 96675006 (10) Acute cholecystitis ICD Codes: K81.0 - Acute cholecystitis SNOMED: 64218884 (11) Hypokalemia ICD Codes: E87.6 - Hypokalemia SNOMED: 37813559 (12) Hypokalemia ICD Codes: E87.6 - Hypokalemia SNOMED: 85831107 (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 SNOMED: 77441607 (14) Acute blood loss anemia ICD Codes: D62 - Acute posthemorrhagic anemia SNOMED: 458969475 (15) Thrush ICD Codes: B37.0 - Thrush SNOMED: 76052357 (16) Gout ICD Codes: M10.9 - Gout, unspecified SNOMED: 07518441 (17) Morbid obesity ICD Codes: E66.01 - Morbid obesity SNOMED: 845557553 (18) Anemia ICD Codes: D64.9 - Anemia SNOMED: 847333163 (19) Back pain ICD Codes: M54.9 - Dorsalgia, unspecified SNOMED: 060915590 (20) Cough ICD Codes: R05 - Cough SNOMED: 71318724 (21) Diarrhea ICD Codes: R19.7 - Diarrhea, unspecified SNOMED: 96630304 (22) SOB (shortness of breath) ICD Codes: R06.02 - Shortness of breath SNOMED: 707074235 (23) Flank pain ICD Codes: R10.9 - Unspecified abdominal pain SNOMED: 624842583 (24) Leukocytosis ICD Codes: D72.829 - Elevated white blood cell count, unspecified SNOMED: 297987685, 010690942 (25) Leukocytosis ICD Codes: D72.829 - Elevated white blood cell count, unspecified SNOMED: 115354779, 200308130 (26) Post-menopausal bleeding ICD Codes: N95.0 - Postmenopausal bleeding SNOMED: 99538804 (27) Vaginal bleeding ICD Codes: N93.9 - Abnormal uterine and vaginal bleeding, unspecified SNOMED: 567284153, 456544679 (28) Hypoalbuminemia ICD Codes: E88.09 - Other disorders of plasma-protein metabolism, not elsewhere classified SNOMED: 307404407 (29) Rectal bleeding ICD Codes: K62.5 - Hemorrhage of anus and rectum SNOMED: 15614727 (30) Venous stasis ICD Codes: I87.8 - Other specified disorders of veins SNOMED: 17851100 (31) Hypertension ICD Codes: I10 - Hypertension SNOMED: 16856899 (32) Pneumonitis ICD Codes: J18.9 - Pneumonia, unspecified organism SNOMED: 848225414 (33) Obesity ICD Codes: E66.9 - Obesity, unspecified SNOMED: 256407835 (34) HTN (hypertension) ICD Codes: I10 - Essential (primary) hypertension SNOMED: 86262339 (35) Chronic pain ICD Codes: G89.29 - Other chronic pain SNOMED: 52688908 (36) Muscle ache ICD Codes: M79.1 - Myalgia SNOMED: 59344731 (37) Cellulitis, leg ICD Codes: L03.119 - Cellulitis, leg SNOMED: 705573925 (38) Cellulitis, leg ICD Codes: L03.119 - Cellulitis of unspecified part of limb SNOMED: 614537780 (39) Clostridium difficile colitis ICD Codes: A04.7 - Clostridium difficile colitis SNOMED: 346489212 (40) ACS (acute coronary syndrome) ICD Codes: I24.9 - Acute ischemic heart disease, unspecified SNOMED: 915843326 (41) Diabetes type 2, controlled ICD Codes: E11.9 - Type 2 diabetes mellitus without complications SNOMED: 58067710, 462034926 (42) Factor V Leiden ICD Codes: D68.51 - Activated protein C resistance SNOMED: 859515758 (43) Shoulder pain, right ICD Codes: M25.511 - Pain in right shoulder SNOMED: 64521027, 89182874 (44) Cellulitis of right leg ICD Codes: L03.115 - Cellulitis of right leg SNOMED: 873456852 (45) Cellulitis of right leg ICD Codes: L03.115 - Cellulitis of right lower limb SNOMED: 850807635 (46) Chronic wound of extremity SNOMED: 016902719 (47) Flank pain, acute ICD Codes: R10.9 - Unspecified abdominal pain SNOMED: 504192138 (48) Injury of lower extremity ICD Codes: S89.90XA - Unspecified injury of unspecified lower leg, initial encounter SNOMED: 321111156 (49) Left leg cellulitis ICD Codes: L03.116 - Cellulitis of left lower limb SNOMED: 651999771 (50) Bilateral cellulitis of lower leg ICD Codes: L03.116 - Cellulitis of left lower limb; L03.115 - Cellulitis of right lower limb SNOMED: 371538908 (51) Bilateral lower leg cellulitis ICD Codes: L03.116 - Cellulitis of left lower limb; L03.115 - Cellulitis of right lower limb SNOMED: 115831614 (52) Poor intravenous access ICD Codes: Z87.898 - Poor intravenous access SNOMED: 757753737 (53) DVT, recurrent, lower extremity, acute and chronic ICD Codes: I82.409 - DVT, recurrent, lower extremity, acute and chronic; I82.509 - Chronic embolism and thombos unsp deep vn unsp low extrm SNOMED: 219149644 (54) Deep vein thrombosis (DVT) of left lower extremity ICD Codes: I82.402 - Acute embolism and thrombosis of unspecified deep veins of left lower extremity SNOMED: 764913608 (55) Acute DVT of LLE (56) Cellulitis (57) lives on own at home (58) lateral posterior left leg superficial skin breakdown ulcer (59) abdominal wall swelling (60) leg pain (61) probable abscess Chuy Damian Dec 19, 2019 14:52
[2019-12-19 16:00] VITALS: BP 121/63
--- NOTE | 2019-12-19 17:56 | NUR ---
NURSE NOTES:WOUND CARE NOTES:Pt presented on admission with full thickness wound Dorsal L foot(L)5.5cm x (W)4.5cm. Pt cited wound as being a large Abscess which was lanced by Home health Nurse prior to admission. Slough at base of wound with erythematous loose edges. Small amt serous exudate.NO odor noted . No erythema or elevation in skin temp noted at site of wound. Both lower ext. are edematous with haemosiderin deposits both lower ext. An area of hyperpigmentation noted to medial L malleolus. Wound irrigated with Saline. Culture swab of wound obtained by Primary nurse. Xeroform applied to wound . Covered with ABD pad and wrapped with Kerlix until further instructed. Both lower ext elevated with 3 pillows in bed.
--- NOTE | 2019-12-19 19:31 | NUR ---
NURSE HAND-OFF: Important Events on Shift: urine culture and wound culture Patient Status: no acuteb distress Diet: Regular Pending Orders: Pending Results/Labs: Pending MD notification: Latest Vital Signs: Temperature 97.6 , Pulse 86 , B/P 121 /63 , Respiratory Rate 18 , O2 SAT 98 , Room Air, O2 Flow Rate . Vital Sign Comment: Latest Ponce Fall Score: 20 Fall Risk: Low Risk Safety Measures: Call light Within Reach, Bed Alarm , Side Rails Side Rails x3, Bed position Low and Locked. Fall Precautions: Patient Fall Education Report given to Delmy.
--- NOTE | 2019-12-19 19:32 | NUR ---
NURSE NOTES: Received pt awake,verbal, and A&Ox4. No sob,fever and cough at the moment. IV is intact and asymptomatic. Pt is bedfast. Bed is in the lowest position,locked and call light within reach. We will keep monitoring the pt.
[2019-12-19 20:00] VITALS: BP 122/65
[2019-12-20] VITALS: BP 128/68
[2019-12-20] MEDS: Hydromorphone 0.5mg/0.5ml inj IVP PRN ×4 (00:05→20:11)
[2019-12-20] MEDS: Vancomycin 1.25gm/NS Premix q24h IVPB SCH ×2 (01:28→12:29)
[2019-12-20 04:00] VITALS: BP 124/66
[2019-12-20] MEDS: DiphenhydrAMINE 50mg/ml Inj IVP PRN (04:09)
[2019-12-20 05:32] LABS: ANION GAP 9 mmol/L (5-15); BLOOD UREA NITROGEN 20 mg/dL (7-18); CALCIUM 8.7 MG/DL (8.5-10.1); CARBON DIOXIDE 26 MMOL/L (21-32); CHLORIDE 102 MMOL/L (98-107); CREATININE 1.1 MG/DL (0.55-1.30); SODIUM 137 MMOL/L (136-145)
[2019-12-20] MEDS: Piperacillin/Tazobactam 3.375 GM in NS 110 ML IVPB SCH ×3 (05:46→21:10)
[2019-12-20 06:01] LABS: BASOPHILS % (AUTO) 4.4 % (0.0-2.0); HEMATOCRIT 35.8 % (37.0-47.0); HEMOGLOBIN 10.6 G/DL (12.0-16.0); LYMPHOCYTES % (AUTO) 32.7 % (20.0-45.0); MEAN CORPUSCULAR VOLUME 85 FL (80-99); MONOCYTES % (AUTO) 12.2 % (1.0-10.0); NEUTROPHILS % (AUTO) 50.8 % (45.0-75.0); PLATELET COUNT 336 K/UL (150-450); RED BLOOD COUNT 4.22 M/UL (4.20-5.40); RED CELL DISTRIBUTION WIDTH 16.2 % (11.6-14.8); WHITE BLOOD COUNT 15.8 K/UL (4.8-10.8)
--- NOTE | 2019-12-20 07:25 | NUR ---
NURSE NOTES: Received report from MARY Moore. Pt received lying in hospital bed, AAO x 4, able to make needs known, able to self-reposition. Has BSC at bedside but patient needs a bariatric one. [employer] contacted, none available at this time. Pt has bed hurtado at bedside and is able to use independently. Pt has a cane and motorized w/c at bedside. Has good appetite. Continent x 2. L foot wound noted with dressing clean, dry and intact. pIV to LAC 20g TKO. Pt's bed in lowest position, call light within reach. Will continue POC.
--- NOTE | 2019-12-20 07:25 | NUR ---
NURSE HAND-OFF: Important Events on Shift:n/a Patient Status: stable Diet: regular Pending Orders: n/a Pending Results/Labs:n/a Pending MD notification:n/a Latest Vital Signs: Temperature 98.1 , Pulse 66 , B/P 124 /66 , Respiratory Rate 18 , O2 SAT 96 , Room Air, O2 Flow Rate . Vital Sign Comment: Latest Ponce Fall Score: 20 Fall Risk: Low Risk Safety Measures: Call light Within Reach, Bed Alarm , Side Rails Side Rails x3, Bed position Low and Locked. Fall Precautions: Patient Fall Education Report given to Tonya birmingham.
[2019-12-20 08:00] VITALS: BP 112/53
[2019-12-20] MEDS: Allopurinol 100mg Tab ORAL SCH (08:54)
[2019-12-20] MEDS: hydroCHLOROthiazide 25mg cap ORAL SCH (08:54)
[2019-12-20] MEDS: Docusate 100mg cap ORAL SCH ×2 (08:54→20:49)
[2019-12-20] MEDS: metFORMIN 500mg tab ORAL SCH ×2 (08:54→17:27)
[2019-12-20] MEDS: Eliquis 5mg tablet ORAL SCH ×2 (08:54→17:27)
[2019-12-20] MEDS: Furosemide 40mg tab ORAL SCH (08:55)
--- NOTE | 2019-12-20 09:09 | NUR ---
NURSE NOTES: Received order to change IV dilaudid to IM per Dr. Mccurdy. Order for PICC line placement also received. Pt has no IV access at this time til 12/22/19 when PICC can be scheduled. If central line can be placed by other specialist today, will schedule. Will continue to f/u.
[2019-12-20] MEDS ORDERED: Hydromorphone 0.5mg/0.5ml inj IM PRN (09:30)
--- NOTE | 2019-12-20 10:00 | NUR ---
NURSE NOTES: Dr. Damian consulted for central line placement. New peripheral IV line initiated via U/S on L IJ 22g. Will continue IV tx as scheduled. Dr. Buckner notified. IV dilaudid changed back from IM.
--- NOTE | 2019-12-20 10:07 | NUR ---
*-*DISCHARGE PLANNING*-* PATIENT HAS BEEN REFERRED TO: [facility] P: [phone] S/W MANUEL, HE STATED ,THEY WONT HAVE A BARIATRIC BED TILL SUNDAY, BUT THEY WILL SECURE THE PATIENTS ROOM# UPON DISCHARGE, FOLLOW UP SUNDAY.
--- NOTE | 2019-12-20 10:36 | Surgery Progress Note ---
Surgery Progress Note Subjective Additional Comments doing well with pain iv infiltrated unable to obtain peripheral per RN's leukocytosis needs abx and meds Objective Last 24 Hour Vital Signs Date Time Temp Pulse Resp B/P (MAP) Pulse Ox O2 Delivery O2 Flow Rate FiO2 12/20/19 08:00 98.2 58 20 112/53 (72) 97 12/20/19 04:00 98.1 66 18 124/66 (85) 96 12/20/19 00:00 97.8 94 18 128/68 (88) 98 12/19/19 21:00 Room Air 12/19/19 20:00 97.8 85 18 122/65 (84) 97 12/19/19 16:00 97.6 86 18 121/63 (82) 98 12/19/19 12:00 98.2 80 18 125/78 (94) 97 I&O Intake and Output 12/19/19 12/20/19 19:00 07:00 Intake Total 480 ml 500 ml Balance 480 ml 500 ml Intake Oral 480 ml 500 ml # Voids 3 2 # Bowel Movements 1 Dressing: dry Cardiovascular: RSR Respiratory: decreased breath sounds Abdomen: soft, non-tender, present bowel sounds, non-distended Extremities: edema, no tenderness, no cyanosis, pulses Laboratory Tests Test 12/19/19 13:50 12/20/19 04:27 Urine Color Yellow Urine Appearance Slightly cloudy Urine pH 6 (4.5-8.0) Urine Specific [place] 1.020 (1.005-1.035) Urine Protein Negative (NEGATIVE) Urine Glucose (UA) Negative (NEGATIVE) Urine Ketones Negative (NEGATIVE) Urine Blood 3+ (NEGATIVE) H Urine Nitrite Negative (NEGATIVE) Urine Bilirubin Negative (NEGATIVE) Urine Urobilinogen 1 MG/DL (0.0-1.0) H Urine Leukocyte Esterase Negative (NEGATIVE) Urine RBC 2-4 /HPF (0 - 2) H Urine WBC 0 /HPF (0 - 2) Urine Squamous Epithelial Cells Moderate /LPF (NONE/OCC) H Urine Bacteria Few /HPF (NONE) White Blood Count 15.8 K/UL (4.8-10.8) H Red Blood Count 4.22 M/UL (4.20-5.40) Hemoglobin 10.6 G/DL (12.0-16.0) L Hematocrit 35.8 % (37.0-47.0) L Mean Corpuscular Volume 85 FL (80-99) Mean Corpuscular Hemoglobin 25.2 PG (27.0-31.0) L Mean Corpuscular Hemoglobin Concent 29.7 G/DL (32.0-36.0) L Red Cell Distribution Width 16.2 % (11.6-14.8) H Platelet Count 336 K/UL (150-450) Mean Platelet Volume 6.3 FL (6.5-10.1) L Neutrophils (%) (Auto) 50.8 % (45.0-75.0) Lymphocytes (%) (Auto) 32.7 % (20.0-45.0) Monocytes (%) (Auto) 12.2 % (1.0-10.0) H Eosinophils (%) (Auto) 0.0 % (0.0-3.0) Basophils (%) (Auto) 4.4 % (0.0-2.0) H Sodium Level 137 MMOL/L (136-145) Potassium Level 4.0 MMOL/L (3.5-5.1) Chloride Level 102 MMOL/L (98-107) Carbon Dioxide Level 26 MMOL/L (21-32) Anion Gap 9 mmol/L (5-15) Blood Urea Nitrogen 20 mg/dL (7-18) H Creatinine 1.1 MG/DL (0.55-1.30) Estimat Glomerular Filtration Rate > 60 mL/min (>60) Glucose Level 116 MG/DL (74-106) H Calcium Level 8.7 MG/DL (8.5-10.1) Plan Problems: (1) History of DVT (deep vein thrombosis) (2) Venous stasis ulcer of left ankle Assessment & Plan: chronic outpatient care with podiatry local wound care being provided (3) Morbid obesity (4) Allergic reaction (5) Left leg cellulitis Assessment & Plan: acute worsening left ankle leg cellulitis states blister now popped serous drainage tender warm edema plain films noted dressings changed keep bilateral lower extremities elevated while in bed xerofoam to left foot and ankle, cover with abd and wrap Podiatry eval abx as per ID okay to ambulate diet as tolerated will follow with recs thank you There are similar changes compared to the contralateral right. Narrowing of Bohler's angle with indistinctness subtalar joints noted. Definitive osteophyte noted both anteriorly and posteriorly. No definite acute fractures seen. Ankle mortise appears anatomic. There is mild generalized soft tissue swelling IMPRESSION: SOFT TISSUE SWELLING. NO DEFINITE ACUTE FRACTURE. APPARENT ARTHRITIC CHANGES OF THE SUBTALAR JOINT IS SIMILAR TO THE CONTRALATERAL RIGHT Patient has poor peripheral access IV line is infiltrated she cannot obtain her antibiotics or pain medication at this time. Using ultrasound guidance a left external jugular vein was identified and a 22- gauge catheter was placed under ultrasound guidance in the left external jugular. Good venous flow identified. Line viable. 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 (14) Acute blood loss anemia (15) Thrush (16) Gout (17) Morbid obesity (18) Anemia (19) Back pain (20) Cough (21) Diarrhea (22) SOB (shortness of breath) (23) Flank pain (24) Leukocytosis (25) Leukocytosis (26) Post-menopausal bleeding (27) Vaginal bleeding (28) Hypoalbuminemia (29) Rectal bleeding (30) Venous stasis (31) Hypertension (32) Pneumonitis (33) Obesity (34) HTN (hypertension) (35) Chronic pain (36) Muscle ache (37) Cellulitis, leg (38) Cellulitis, leg (39) Clostridium difficile colitis (40) ACS (acute coronary syndrome) (41) Diabetes type 2, controlled (42) Factor V Leiden (43) Shoulder pain, right (44) Cellulitis of right leg (45) Cellulitis of right leg (46) Chronic wound of extremity (47) Flank pain, acute (48) Injury of lower extremity (49) Left leg cellulitis (50) Bilateral cellulitis of lower leg (51) Bilateral lower leg cellulitis (52) Poor intravenous access (53) DVT, recurrent, lower extremity, acute and chronic (54) Deep vein thrombosis (DVT) of left lower extremity (55) Acute DVT of LLE (56) Cellulitis (57) lives on own at home (58) lateral posterior left leg superficial skin breakdown ulcer (59) abdominal wall swelling (60) leg pain (61) probable abscess Chuy Damian Dec 20, 2019 10:36
--- NOTE | 2019-12-20 10:44 | General Progress Note ---
Assessment/Plan Problem List: (1) Cellulitis (2) lateral posterior left leg superficial skin breakdown ulcer (3) leg pain (4) Deep vein thrombosis (DVT) of left lower extremity ICD Codes: I82.402 - Acute embolism and thrombosis of unspecified deep veins of left lower extremity SNOMED: 762192054 (5) Poor intravenous access ICD Codes: Z87.898 - Poor intravenous access SNOMED: 088242219 (6) Bilateral lower leg cellulitis ICD Codes: L03.116 - Cellulitis of left lower limb; L03.115 - Cellulitis of right lower limb SNOMED: 920794998 (7) Diabetes type 2, controlled ICD Codes: E11.9 - Type 2 diabetes mellitus without complications SNOMED: 27671349, 107939971 (8) Morbid obesity ICD Codes: E66.01 - Morbid obesity SNOMED: 244155178 Status: stable Assessment/Plan: 59 year old female with multiple commodities presents with cellulitis of lower extremity. #Left foot ulcer s/p biol rupture #B/L lower extremity cellulitis #Leukocytosis -IV antibiotics per ID - Vanc and Zosyn -Follow blood cultures -Wound care -Trend WBC -Consult to general surgery - appreciate recs- placed IJ for IV access - PICC line to be placed Sunday -Consult to podiatry - appreciate recs #Lowe extremity DVT #Factor V Leiden -Continue with home Eliquis #NID Diabetes mellitus -Patient prefers to continue with Metformin Vs. ISS -Glucose checks qAC qHS -CC diet Dispo to SNF I spent 36 minutes on this patient with 20 min coordinating care. Discussed with Consultants, RNs and pharmacy. Subjective Date patient seen: Dec 20, 2019 Time patient seen: 10:27 Constitutional: Reports: no symptoms HEENT: Reports: no symptoms Cardiovascular: Reports: no symptoms Respiratory: Reports: no symptoms Gastrointestinal/Abdominal: Reports: no symptoms Genitourinary: Reports: no symptoms Neurologic/Psychiatric: Reports: no symptoms Endocrine: Reports: no symptoms Hematologic/Lymphatic: Reports: no symptoms Allergies: Coded Allergies: SULFA (SULFONAMIDE ANTIBIOTICS) (Unverified Allergy, Unknown, 05/02/15) allergy history per Dr. Jones Subjective Patient requesting pain meds and her IV site hurts. Objective Last 24 Hour Vital Signs Date Time Temp Pulse Resp B/P (MAP) Pulse Ox O2 Delivery O2 Flow Rate FiO2 12/20/19 08:00 98.2 58 20 112/53 (72) 97 12/20/19 04:00 98.1 66 18 124/66 (85) 96 12/20/19 00:00 97.8 94 18 128/68 (88) 98 12/19/19 21:00 Room Air 12/19/19 20:00 97.8 85 18 122/65 (84) 97 12/19/19 16:00 97.6 86 18 121/63 (82) 98 12/19/19 12:00 98.2 80 18 125/78 (94) 97 Intake and Output 12/19/19 12/20/19 19:00 07:00 Intake Total 480 ml 500 ml Balance 480 ml 500 ml Intake Oral 480 ml 500 ml # Voids 3 2 # Bowel Movements 1 Laboratory Tests 12/19/19 13:50: Urine Color Yellow, Urine Appearance Slightly cloudy, Urine pH 6, Urine Specific [place] 1.020, Urine Protein Negative, Urine Glucose (UA) Negative, Urine Ketones Negative, Urine Blood 3+H, Urine Nitrite Negative, Urine Bilirubin Negative, Urine Urobilinogen 1H, Urine Leukocyte Esterase Negative, Urine RBC 2-4H, Urine WBC 0, Urine Squamous Epithelial Cells ModerateH, Urine Bacteria Few 12/20/19 04:27: White Blood Count 15.8H, Red Blood Count 4.22, Hemoglobin 10.6L, Hematocrit 35.8L, Mean Corpuscular Volume 85, Mean Corpuscular Hemoglobin 25.2L, Mean Corpuscular Hemoglobin Concent 29.7L, Red Cell Distribution Width 16.2H, Platelet Count 336, Mean Platelet Volume 6.3L, Neutrophils (%) (Auto) 50.8, Lymphocytes (%) (Auto) 32.7, Monocytes (%) (Auto) 12.2H, Eosinophils (%) (Auto) 0.0, Basophils (%) (Auto) 4.4H, Sodium Level 137, Potassium Level 4.0, Chloride Level 102, Carbon Dioxide Level 26, Anion Gap 9, Blood Urea Nitrogen 20H, Creatinine 1.1, Estimat Glomerular Filtration Rate > 60, Glucose Level 116H, Calcium Level 8.7 Height (Feet): 6 Height (Inches): 1.00 Weight (Pounds): 410 General Appearance: no apparent distress, alert, morbidly obese, alert oriented x3 EENT: PERRL/EOMI, normal ENT inspection Neck: normal alignment, supple, normal inspection Cardiovascular: normal rate, regular rhythm, no gallop/murmur, no JVD Respiratory/Chest: lungs clear, normal breath sounds, no respiratory distress, no accessory muscle use Abdomen: normal bowel sounds, non tender, soft, no organomegaly, no mass Edema: 1+ Leg (L), 1+ Leg (R) Edema: mild edema 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 Dec 20, 2019 10:43
[2019-12-20 12:00] VITALS: BP 107/60
--- NOTE | 2019-12-20 14:23 | Neurology Progress Note ---
Interim History Interim History Interim History 59yo AAF who reported for suspected abscess of L dorsal foot. 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 She denies recent admission to the hospital in the last 3 months. She denies recent antibiotic exposure. Patient is currently being seen by home health. This particular wound was first described as a boil roughly 6cm in diameter and recently busted open. It appears healing with normal margins. No sign of continued rash. Otherwise patient denies fever, chills, and night sweats She has pain and burning in bilateral legs limiting her gait Objective Physical Exam Last Vital Signs Date Time Temp Pulse Resp B/P (MAP) Pulse Ox O2 Delivery O2 Flow Rate FiO2 12/20/19 09:00 Room Air 12/20/19 08:00 98.2 58 20 112/53 (72) 97 Laboratory Tests Test 12/20/19 04:27 12/20/19 12:05 White Blood Count 15.8 K/UL (4.8-10.8) H Red Blood Count 4.22 M/UL (4.20-5.40) Hemoglobin 10.6 G/DL (12.0-16.0) L Hematocrit 35.8 % (37.0-47.0) L Mean Corpuscular Volume 85 FL (80-99) Mean Corpuscular Hemoglobin 25.2 PG (27.0-31.0) L Mean Corpuscular Hemoglobin Concent 29.7 G/DL (32.0-36.0) L Red Cell Distribution Width 16.2 % (11.6-14.8) H Platelet Count 336 K/UL (150-450) Mean Platelet Volume 6.3 FL (6.5-10.1) L Neutrophils (%) (Auto) 50.8 % (45.0-75.0) Lymphocytes (%) (Auto) 32.7 % (20.0-45.0) Monocytes (%) (Auto) 12.2 % (1.0-10.0) H Eosinophils (%) (Auto) 0.0 % (0.0-3.0) Basophils (%) (Auto) 4.4 % (0.0-2.0) H Sodium Level 137 MMOL/L (136-145) Potassium Level 4.0 MMOL/L (3.5-5.1) Chloride Level 102 MMOL/L (98-107) Carbon Dioxide Level 26 MMOL/L (21-32) Anion Gap 9 mmol/L (5-15) Blood Urea Nitrogen 20 mg/dL (7-18) H Creatinine 1.1 MG/DL (0.55-1.30) Estimat Glomerular Filtration Rate > 60 mL/min (>60) Glucose Level 116 MG/DL (74-106) H Calcium Level 8.7 MG/DL (8.5-10.1) Vancomycin Level Trough 11.0 ug/mL (5.0-12.0) Impression/Recommendations Problems: (1) History of DVT (deep vein thrombosis) (2) Venous stasis ulcer of left ankle (3) Morbid obesity (4) Allergic reaction (5) Left leg cellulitis (6) Sepsis (7) Factor 5 Leiden mutation, heterozygous (8) DVT, bilateral lower limbs (9) Acute cholecystitis (10) Acute cholecystitis (11) Hypokalemia (12) Hypokalemia (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 (14) Acute blood loss anemia (15) Thrush (16) Gout (17) Morbid obesity (18) Anemia (19) Back pain (20) Cough (21) Diarrhea (22) SOB (shortness of breath) (23) Flank pain (24) Leukocytosis (25) Leukocytosis (26) Post-menopausal bleeding (27) Vaginal bleeding (28) Hypoalbuminemia (29) Rectal bleeding (30) Venous stasis (31) Hypertension (32) Pneumonitis (33) Obesity (34) HTN (hypertension) (35) Chronic pain (36) Muscle ache (37) Cellulitis, leg (38) Cellulitis, leg (39) Clostridium difficile colitis (40) ACS (acute coronary syndrome) (41) Diabetes type 2, controlled (42) Factor V Leiden (43) Shoulder pain, right (44) Cellulitis of right leg (45) Cellulitis of right leg (46) Chronic wound of extremity (47) Flank pain, acute (48) Injury of lower extremity (49) Left leg cellulitis (50) Bilateral cellulitis of lower leg (51) Bilateral lower leg cellulitis (52) Poor intravenous access (53) DVT, recurrent, lower extremity, acute and chronic (54) Deep vein thrombosis (DVT) of left lower extremity (55) Acute DVT of LLE (56) Cellulitis (57) lives on own at home (58) lateral posterior left leg superficial skin breakdown ulcer (59) abdominal wall swelling (60) leg pain (61) probable abscess Status: stable Diagnostic Impression Diabetic polyneuropathy, Add gabapentin 100 mg bid cont anticoagulation COnt PT OT COnt Atb Prosper Murray MD Dec 20, 2019 14:23
--- NOTE | 2019-12-20 14:24 | Consultation ---
History of Present Illness General Date patient seen: Dec 19, 2019 Reason for Hospitalization: Skin Rash/Abscess Present Illness HPI 59yo AAF who reported for suspected abscess of L dorsal foot. 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 She denies recent admission to the hospital in the last 3 months. She denies recent antibiotic exposure. Patient is currently being seen by home health. This particular wound was first described as a boil roughly 6cm in diameter and recently busted open. It appears healing with normal margins. No sign of continued rash. Otherwise patient denies fever, chills, and night sweats She has pain and burning in bilateral legs limiting her gait Allergies: Coded Allergies: SULFA (SULFONAMIDE ANTIBIOTICS) (Unverified Allergy, Unknown, 05/02/15) allergy history per Dr. Jones COVID-19 Screening Contact w/high risk pt: No Recent Travel to affected area: No Experienced COVID-19 symptoms?: No Medication History Scheduled Allopurinol* (Allopurinol*), 100 MG ORAL DAILY, (Reported) Apixaban (Eliquis), 5 MG PO BID, (Reported) Cephalexin* (Keflex*), 500 MG ORAL EVERY 6 HOURS Docusate Sodium* (Colace*), 100 MG ORAL TWICE A DAY, (Reported) Febuxostat (Uloric), 40 MG ORAL DAILY, (Reported) Furosemide* (Lasix*), 40 MG ORAL DAILY Hydrochlorothiazide* (Hydrochlorothiazide*), 25 MG ORAL DAILY, (Reported) Liraglutide (Saxenda), 3 MG SQ DAILY, (Reported) Metformin Hcl* (Metformin Hcl*), 500 MG ORAL TWICE A DAY, (Reported) Multivitamin (Daily Mario), 1 TAB ORAL DAILY, (Reported) Scheduled PRN Gabapentin* (Gabapentin*), 100 MG ORAL Q12H PRN Hydrocodone Bit/Acetaminophen 7.5-300 Mg Tabl (Vicodin Es 7.5-300 Mg Tablet), 1 TAB ORAL Q4H PRN for For Pain, (Reported) Discontinued Medications Acetaminophen With Codeine (T#3) (Tylenol With Codeine #3 Tablet), 1 TAB ORAL Q4H PRN for For Pain, (Reported) Discontinued Reason: Therapy completed Benazepril Hcl* (Benazepril Hcl*), 20 MG ORAL DAILY, (Reported) Discontinued Reason: MD discontinued med Ciprofloxacin Hcl* (Ciprofloxacin Hcl*), 500 MG ORAL Q12H Discontinued Reason: Therapy completed Ibuprofen (Motrin), 600 MG ORAL THREE TIMES A DAY Discontinued Reason: MD discontinued med Metronidazole* (Flagyl*), 500 MG ORAL THREE TIMES A DAY Discontinued Reason: MD discontinued med Multivitamin (Daily Mario), 1 TAB ORAL DAILY, (Reported) Discontinued Reason: MD discontinued med Patient History Healthcare decision maker Resuscitation status Advanced Directive on File Family History Family History: Patient reports no known family medical history. Review of Systems Review of Symptoms General ROS: no weight loss or fever Psychological ROS: no depression or mood changes, no memory loss Ophthalmic ROS: no visual changes or eye irritation ENT ROS: no nasal congestion, hearing loss, dizziness Allergy and Immunology ROS: no allergic symptoms or urticaria Hematological and Lymphatic ROS: no swollen glands, unusual bleeding or bruising Endocrine ROS: no polyuria, polydipsia, weight changes, temperature intolerance Respiratory ROS: no cough, shortness of breath, or wheezing Cardiovascular ROS: no chest pain or dyspnea on exertion Gastrointestinal ROS: denies abdominal pain, bright red blood in stool. Musculoskeletal ROS: no myalgias or arthralgias Neurological ROS: no TIA or stroke symptoms Dermatological ROS: no new or changing skin lesions, rashes or pruritis Physical Exam Physical Exam General appearance: alert, cooperative, no distress, appears stated age Head: Normocephalic, without obvious abnormality, atraumatic Eyes: conjunctivae/corneas clear. PERRL, EOM's intact. Fundi benign Throat: Lips, mucosa, and tongue normal. Teeth and gums normal Neck: supple, symmetrical, trachea midline, no adenopathy, thyroid: not enlarged, symmetric, no tenderness/mass/nodules, no carotid bruit and no JVD Lungs: clear to auscultation bilaterally Heart: regular rate and rhythm, S1, S2 normal, no murmur, click, rub or gallop Abdomen: soft, non-tender. Bowel sounds normal. No masses, no organomegaly Extremities: extremities normal, atraumatic, no cyanosis or edema Pulses: 2+ and symmetric Skin: Skin color, texture, turgor normal. No rashes or lesions Neurologic: Grossly normal Last 24 Hour Vital Signs Date Time Temp Pulse Resp B/P (MAP) Pulse Ox O2 Delivery O2 Flow Rate FiO2 12/20/19 09:00 Room Air 12/20/19 08:00 98.2 58 20 112/53 (72) 97 12/20/19 04:00 98.1 66 18 124/66 (85) 96 12/20/19 00:00 97.8 94 18 128/68 (88) 98 12/19/19 21:00 Room Air 12/19/19 20:00 97.8 85 18 122/65 (84) 97 12/19/19 16:00 97.6 86 18 121/63 (82) 98 Intake and Output 12/19/19 12/20/19 19:00 07:00 Intake Total 480 ml 500 ml Balance 480 ml 500 ml Intake Oral 480 ml 500 ml # Voids 3 2 # Bowel Movements 1 Laboratory Tests Test 12/20/19 04:27 12/20/19 12:05 White Blood Count 15.8 K/UL (4.8-10.8) H Red Blood Count 4.22 M/UL (4.20-5.40) Hemoglobin 10.6 G/DL (12.0-16.0) L Hematocrit 35.8 % (37.0-47.0) L Mean Corpuscular Volume 85 FL (80-99) Mean Corpuscular Hemoglobin 25.2 PG (27.0-31.0) L Mean Corpuscular Hemoglobin Concent 29.7 G/DL (32.0-36.0) L Red Cell Distribution Width 16.2 % (11.6-14.8) H Platelet Count 336 K/UL (150-450) Mean Platelet Volume 6.3 FL (6.5-10.1) L Neutrophils (%) (Auto) 50.8 % (45.0-75.0) Lymphocytes (%) (Auto) 32.7 % (20.0-45.0) Monocytes (%) (Auto) 12.2 % (1.0-10.0) H Eosinophils (%) (Auto) 0.0 % (0.0-3.0) Basophils (%) (Auto) 4.4 % (0.0-2.0) H Sodium Level 137 MMOL/L (136-145) Potassium Level 4.0 MMOL/L (3.5-5.1) Chloride Level 102 MMOL/L (98-107) Carbon Dioxide Level 26 MMOL/L (21-32) Anion Gap 9 mmol/L (5-15) Blood Urea Nitrogen 20 mg/dL (7-18) H Creatinine 1.1 MG/DL (0.55-1.30) Estimat Glomerular Filtration Rate > 60 mL/min (>60) Glucose Level 116 MG/DL (74-106) H Calcium Level 8.7 MG/DL (8.5-10.1) Vancomycin Level Trough 11.0 ug/mL (5.0-12.0) Height (Feet): 6 Height (Inches): 1.00 Weight (Pounds): 410 Medications Current Medications Medications (Trade) Dose Ordered Sig/Key Route PRN Reason Start Time Stop Time Status Last Admin Dose Admin Acetaminophen (Tylenol) 650 mg Q4H PRN ORAL Mild Pain (Pain Scale 1-3) 12/19/19 01:45 01/18/20 01:44 Allopurinol (Zyloprim) 100 mg DAILY ORAL 12/19/19 09:00 01/18/20 08:59 12/20/19 08:54 Apixaban (Eliquis) 5 mg BID ORAL 12/19/19 09:00 03/18/20 08:59 12/20/19 08:54 Chlorhexidine Gluconate (Priti-Hex 2%) 1 applic DAILY@1999 TOPIC 12/22/19 20:00 03/21/20 19:59 Dextrose (Dextrose 50%) 25 ml Q30M PRN IV Hypoglycemia 12/19/19 01:45 03/18/20 01:44 Dextrose (Dextrose 50%) 50 ml Q30M PRN IV Hypoglycemia 12/19/19 01:45 03/18/20 01:44 Diphenhydramine HCl (Benadryl) 25 mg Q6H PRN IVP Itching 12/19/19 03:15 01/18/20 03:14 12/20/19 04:09 Docusate Sodium (Colace) 100 mg EVERY 12 HOURS ORAL 12/19/19 09:00 01/18/20 08:59 12/20/19 08:54 Famotidine (Pepcid) 40 mg DAILY ORAL 12/19/19 09:00 03/18/20 08:59 12/20/19 08:54 Furosemide (Lasix) 40 mg DAILY ORAL 12/19/19 09:00 01/18/20 08:59 12/20/19 08:55 Heparin Sodium/ Sodium Chloride (Heparin 1000 units/500ml Premix) 1,000 unit ONCE PRN IV PICC LINE 12/22/19 09:00 12/24/19 08:59 Hydrochlorothiazide (Hydrodiuril) 25 mg DAILY ORAL 12/19/19 09:00 01/18/20 08:59 12/20/19 08:54 Hydromorphone HCl (Dilaudid) 0.5 mg Q6H PRN IVP For Pain 12/20/19 11:00 12/26/19 10:59 12/20/19 12:30 Lidocaine HCl (Xylocaine 1% 30ml) 30 ml ONCE PRN INJ PICC LINE 12/22/19 09:00 12/24/19 08:59 Metformin HCl (Glucophage) 500 mg TWICE A DAY ORAL 12/19/19 09:00 01/18/20 08:59 12/20/19 08:54 Multivitamins (Multivitamins) 1 tab DAILY ORAL 12/19/19 09:00 01/18/20 08:59 12/20/19 08:54 Ondansetron HCl (Zofran) 4 mg Q6H PRN IVP Nausea & Vomiting 12/19/19 01:45 01/18/20 01:44 Piperacillin Sod/ Tazobactam Sod 3.375 gm/Sodium Chloride 110 ml @ 27.5 mls/hr EVERY 8 HOURS IVPB 12/19/19 06:00 12/24/19 05:59 12/20/19 05:46 Polyethylene Glycol (Miralax) 17 gm HSPRN PRN ORAL Constipation 12/19/19 01:45 01/18/20 01:44 Vancomycin HCl (Vanco pharmacy to dose) 1 ea DAILY PRN MISC Per rx protocol 12/19/19 12:00 01/18/20 11:59 Vancomycin/Sodium Chloride 275 ml @ 183.333 mls/hr Q12HR@0100,1300 IVPB 12/19/19 13:00 12/24/19 12:59 12/20/19 12:29 Assessment/Plan Problem List: (1) History of DVT (deep vein thrombosis) ICD Codes: Z86.718 - Personal history of other venous thrombosis and embolism SNOMED: 240182977 (2) Venous stasis ulcer of left ankle ICD Codes: I83.023 - Varicose veins of left lower extremity with ulcer of ankle ; L97.329 - Non-pressure chronic ulcer of left ankle with unspecified severity SNOMED: 986493235, 697506107 Qualifiers: Qualified Codes: I83.023 - Varicose veins of left lower extremity with ulcer of ankle; L97.329 - Non-pressure chronic ulcer of left ankle with unspecified severity (3) Morbid obesity ICD Codes: E66.01 - Morbid (severe) obesity due to excess calories SNOMED: 383407095 (4) Allergic reaction ICD Codes: T78.40XA - Allergy, unspecified, initial encounter SNOMED: 050854289 Qualifiers: Qualified Codes: T78.40XA - Allergy, unspecified, initial encounter (5) Left leg cellulitis ICD Codes: L03.116 - Cellulitis of left leg SNOMED: 027929852 (6) Sepsis ICD Codes: A41.9 - Sepsis, unspecified organism SNOMED: 05265396 (7) Factor 5 Leiden mutation, heterozygous ICD Codes: D68.8 - Factor 5 Leiden mutation, heterozygous SNOMED: 414867948 (8) DVT, bilateral lower limbs ICD Codes: I82.403 - Acute embolism and thrombosis of unspecified deep veins of lower extremity, bilateral SNOMED: 479224974, 765078467 (9) Acute cholecystitis ICD Codes: K81.0 - Acute cholecystitis SNOMED: 87247890 (10) Acute cholecystitis ICD Codes: K81.0 - Acute cholecystitis SNOMED: 62584262 (11) Hypokalemia ICD Codes: E87.6 - Hypokalemia SNOMED: 98495087 (12) Hypokalemia ICD Codes: E87.6 - Hypokalemia SNOMED: 09384646 (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 SNOMED: 36137693 (14) Acute blood loss anemia ICD Codes: D62 - Acute posthemorrhagic anemia SNOMED: 861042671 (15) Thrush ICD Codes: B37.0 - Thrush SNOMED: 88872617 (16) Gout ICD Codes: M10.9 - Gout, unspecified SNOMED: 39285322 (17) Morbid obesity ICD Codes: E66.01 - Morbid obesity SNOMED: 783329146 (18) Anemia ICD Codes: D64.9 - Anemia SNOMED: 305644312 (19) Back pain ICD Codes: M54.9 - Dorsalgia, unspecified SNOMED: 343706375 (20) Cough ICD Codes: R05 - Cough SNOMED: 43667369 (21) Diarrhea ICD Codes: R19.7 - Diarrhea, unspecified SNOMED: 47510542 (22) SOB (shortness of breath) ICD Codes: R06.02 - Shortness of breath SNOMED: 376143198 (23) Flank pain ICD Codes: R10.9 - Unspecified abdominal pain SNOMED: 838576082 (24) Leukocytosis ICD Codes: D72.829 - Elevated white blood cell count, unspecified SNOMED: 955365212, 592749755 (25) Leukocytosis ICD Codes: D72.829 - Elevated white blood cell count, unspecified SNOMED: 711687254, 686772554 (26) Post-menopausal bleeding ICD Codes: N95.0 - Postmenopausal bleeding SNOMED: 10318235 (27) Vaginal bleeding ICD Codes: N93.9 - Abnormal uterine and vaginal bleeding, unspecified SNOMED: 467762351, 786101817 (28) Hypoalbuminemia ICD Codes: E88.09 - Other disorders of plasma-protein metabolism, not elsewhere classified SNOMED: 851220458 (29) Rectal bleeding ICD Codes: K62.5 - Hemorrhage of anus and rectum SNOMED: 09192883 (30) Venous stasis ICD Codes: I87.8 - Other specified disorders of veins SNOMED: 56699728 (31) Hypertension ICD Codes: I10 - Hypertension SNOMED: 18522591 (32) Pneumonitis ICD Codes: J18.9 - Pneumonia, unspecified organism SNOMED: 671170067 (33) Obesity ICD Codes: E66.9 - Obesity, unspecified SNOMED: 367053602 (34) HTN (hypertension) ICD Codes: I10 - Essential (primary) hypertension SNOMED: 01000094 (35) Chronic pain ICD Codes: G89.29 - Other chronic pain SNOMED: 54242361 (36) Muscle ache ICD Codes: M79.1 - Myalgia SNOMED: 01873394 (37) Cellulitis, leg ICD Codes: L03.119 - Cellulitis, leg SNOMED: 292794175 (38) Cellulitis, leg ICD Codes: L03.119 - Cellulitis of unspecified part of limb SNOMED: 957834961 (39) Clostridium difficile colitis ICD Codes: A04.7 - Clostridium difficile colitis SNOMED: 233337805 (40) ACS (acute coronary syndrome) ICD Codes: I24.9 - Acute ischemic heart disease, unspecified SNOMED: 010709458 (41) Diabetes type 2, controlled ICD Codes: E11.9 - Type 2 diabetes mellitus without complications SNOMED: 19201626, 852433758 (42) Factor V Leiden ICD Codes: D68.51 - Activated protein C resistance SNOMED: 946851981 (43) Shoulder pain, right ICD Codes: M25.511 - Pain in right shoulder SNOMED: 44673302, 57553089 (44) Cellulitis of right leg ICD Codes: L03.115 - Cellulitis of right leg SNOMED: 595209192 (45) Cellulitis of right leg ICD Codes: L03.115 - Cellulitis of right lower limb SNOMED: 848825832 (46) Chronic wound of extremity SNOMED: 433001854 (47) Flank pain, acute ICD Codes: R10.9 - Unspecified abdominal pain SNOMED: 169990715 (48) Injury of lower extremity ICD Codes: S89.90XA - Unspecified injury of unspecified lower leg, initial encounter SNOMED: 256630807 (49) Left leg cellulitis ICD Codes: L03.116 - Cellulitis of left lower limb SNOMED: 147295617 (50) Bilateral cellulitis of lower leg ICD Codes: L03.116 - Cellulitis of left lower limb; L03.115 - Cellulitis of right lower limb SNOMED: 365122168 (51) Bilateral lower leg cellulitis ICD Codes: L03.116 - Cellulitis of left lower limb; L03.115 - Cellulitis of right lower limb SNOMED: 060093170 (52) Poor intravenous access ICD Codes: Z87.898 - Poor intravenous access SNOMED: 545027381 (53) DVT, recurrent, lower extremity, acute and chronic ICD Codes: I82.409 - DVT, recurrent, lower extremity, acute and chronic; I82.509 - Chronic embolism and thombos unsp deep vn unsp low extrm SNOMED: 248392900 (54) Deep vein thrombosis (DVT) of left lower extremity ICD Codes: I82.402 - Acute embolism and thrombosis of unspecified deep veins of left lower extremity SNOMED: 772028640 (55) Acute DVT of LLE (56) Cellulitis (57) lives on own at home (58) lateral posterior left leg superficial skin breakdown ulcer (59) abdominal wall swelling (60) leg pain (61) probable abscess Assessment/Plan: Diabetic polyneuropathy, Add gabapentin 100 mg bid cont anticoagulation COnt PT OT COnt Atb [facility] Hospital declaration INPATIENT level of care is warranted for this patient because patient is a 89 year old with who presents with suspicion of . I have a high level of concern because . Patient is at high risk for . Plan of care/treatment include . Patient care is expected to be greater than 2 midnights. OBSERVATION level of care is warranted for this patient. Patient is a 89 year old with who presents with . Patient will be admitted for 1 midnight, but if additional night(s) is/are necessary, patient will be converted to inpatient status for the entire hospitalization Disposition: Once the patient is stable to leave the hospital, I anticipate the patient will likely be discharged to the following environment: Estimated discharge date: I spent 70 minutes on this patient's case, and minutes was dedicated to counseling and/or care coordination. MIPS (Merit-based Incentive Payment System) Applicable CPT: 76664, 27416 CHECK ALL THAT ARE MET: Measure #5 (CHF): All ages. Prescribe DUNIA/ARB upon discharge for patients with left ventricular systolic dysfunction. If not, the reason is clearly documented in the medical chart. Measure #8 (CHF): All ages. Prescribe a beta laron upon discharge for patients with left ventricular systolic dysfunction. If not, the reason is clearly documented in the medical chart. Measure #47 Advance care plan or surrogate decision maker documented in the medical record. Measure #130 The provider has documented, updated, or reviewed the patients current medication list and has documented it in the patients note. Measure #374 (All): Send report to referring provider. Measure #407(Sepsis due to MSSA bacteremia): Age 18+ Patient treated with a beta-lactam antibiotic (Nafcillin, Oxacillin or Cefazolin) as definitive therapy. MEDICAL COMPLEXITY High complexity medical decision making (need 2/3 categories) Problem - need 4 points Acute/new problem with new plan for workup (4 points, 1 max) Acute/new problem without additional workup (3 points, 1 max) Unstable chronic problem actively being managed (2 point each, 2 max) Stable chronic problem actively being managed (1 point each, 2 max) Self-limited/transient process (constipation, muscle ache, etc) (1 point each , 2 max) Data - need 4 points Reviewed labs/imaging studies (1 points, 2 max) Independent review of imaging (EKG, xrays, etc) (2 points, 2 max) Discussed case with consult/other MD/RN (2 points, 2 max) High Risk - qualify if have one of the following: Severe exacerbation of acute problem, acute mental status change, IV narcotics , monitoring drug levels (vancomycin, INR, tacrolimus etc) Prosper Murray MD Dec 20, 2019 14:23
[2019-12-20 16:00] VITALS: BP 118/66
--- NOTE | 2019-12-20 17:22 | Infectious Diseases Prog Note ---
Assessment/Plan Assessment/Plan Full consult dictated: A) 1) left foot cellulitis/abscess/boil, abscess/boil ruptured, sepsis, leukocytosis 2) pmh noted 3) allergies - nkda P) 1) vancomycin and zosyn 2) f/u on cultures 3) monitor labs/wbc 4) will f/u Subjective Constitutional: Denies: fever HEENT: Denies: congestion Respiratory: Denies: shortness of breath Cardiovascular: Denies: chest pain Gastrointestinal/Abdominal: Denies: nausea Allergies: Coded Allergies: SULFA (SULFONAMIDE ANTIBIOTICS) (Unverified Allergy, Unknown, 05/02/15) allergy history per Dr. Jones Objective Last 24 Hour Vital Signs Date Time Temp Pulse Resp B/P (MAP) Pulse Ox O2 Delivery O2 Flow Rate FiO2 12/20/19 16:00 98.5 85 20 118/66 (83) 98 12/20/19 12:00 96.4 58 12 107/60 (76) 94 12/20/19 09:00 Room Air 12/20/19 08:00 98.2 58 20 112/53 (72) 97 12/20/19 04:00 98.1 66 18 124/66 (85) 96 12/20/19 00:00 97.8 94 18 128/68 (88) 98 12/19/19 21:00 Room Air 12/19/19 20:00 97.8 85 18 122/65 (84) 97 Height (Feet): 6 Height (Inches): 1.00 Weight (Pounds): 410 General Appearance: no acute distress HEENT: normocephalic, atraumatic, anicteric Respiratory/Chest: no accessory muscle use Cardiovascular: normal rate Abdomen: soft, non tender Extremities: other - left foot wound stable, + swelling/pain Microbiology Date/Time Source Procedure Growth Status 12/19/19 00:45 Blood Blood Culture - Preliminary NO GROWTH AFTER 24 HOURS Resulted 12/19/19 00:45 Blood Blood Culture - Preliminary NO GROWTH AFTER 24 HOURS Resulted 12/19/19 11:43 Nasopharynx SARS-CoV-2 RdRp Gene Assay - Final Complete 12/19/19 13:45 Foot Left Gram Stain - Final Resulted 12/19/19 13:45 Foot Left Wound Culture - Preliminary NO GROWTH Resulted Laboratory Tests Test 12/20/19 04:27 12/20/19 12:05 White Blood Count 15.8 K/UL (4.8-10.8) H Red Blood Count 4.22 M/UL (4.20-5.40) Hemoglobin 10.6 G/DL (12.0-16.0) L Hematocrit 35.8 % (37.0-47.0) L Mean Corpuscular Volume 85 FL (80-99) Mean Corpuscular Hemoglobin 25.2 PG (27.0-31.0) L Mean Corpuscular Hemoglobin Concent 29.7 G/DL (32.0-36.0) L Red Cell Distribution Width 16.2 % (11.6-14.8) H Platelet Count 336 K/UL (150-450) Mean Platelet Volume 6.3 FL (6.5-10.1) L Neutrophils (%) (Auto) 50.8 % (45.0-75.0) Lymphocytes (%) (Auto) 32.7 % (20.0-45.0) Monocytes (%) (Auto) 12.2 % (1.0-10.0) H Eosinophils (%) (Auto) 0.0 % (0.0-3.0) Basophils (%) (Auto) 4.4 % (0.0-2.0) H Sodium Level 137 MMOL/L (136-145) Potassium Level 4.0 MMOL/L (3.5-5.1) Chloride Level 102 MMOL/L (98-107) Carbon Dioxide Level 26 MMOL/L (21-32) Anion Gap 9 mmol/L (5-15) Blood Urea Nitrogen 20 mg/dL (7-18) H Creatinine 1.1 MG/DL (0.55-1.30) Estimat Glomerular Filtration Rate > 60 mL/min (>60) Glucose Level 116 MG/DL (74-106) H Calcium Level 8.7 MG/DL (8.5-10.1) Vancomycin Level Trough 11.0 ug/mL (5.0-12.0) Current Medications Medications (Trade) Dose Ordered Sig/Key Route PRN Reason Start Time Stop Time Status Last Admin Dose Admin Acetaminophen (Tylenol) 650 mg Q4H PRN ORAL Mild Pain (Pain Scale 1-3) 12/19/19 01:45 01/18/20 01:44 Allopurinol (Zyloprim) 100 mg DAILY ORAL 12/19/19 09:00 01/18/20 08:59 12/20/19 08:54 Apixaban (Eliquis) 5 mg BID ORAL 12/19/19 09:00 03/18/20 08:59 12/20/19 08:54 Chlorhexidine Gluconate (Priti-Hex 2%) 1 applic DAILY@2000 TOPIC 12/22/19 20:00 03/21/20 19:59 Dextrose (Dextrose 50%) 25 ml Q30M PRN IV Hypoglycemia 12/19/19 01:45 03/18/20 01:44 Dextrose (Dextrose 50%) 50 ml Q30M PRN IV Hypoglycemia 12/19/19 01:45 03/18/20 01:44 Diphenhydramine HCl (Benadryl) 25 mg Q6H PRN IVP Itching 12/19/19 03:15 01/18/20 03:14 12/20/19 04:09 Docusate Sodium (Colace) 100 mg EVERY 12 HOURS ORAL 12/19/19 09:00 01/18/20 08:59 12/20/19 08:54 Famotidine (Pepcid) 40 mg DAILY ORAL 12/19/19 09:00 03/18/20 08:59 12/20/19 08:54 Furosemide (Lasix) 40 mg DAILY ORAL 12/19/19 09:00 01/18/20 08:59 12/20/19 08:55 Gabapentin (Neurontin) 100 mg Q12H PRN ORAL For Pain 12/20/19 16:15 01/19/20 16:14 Heparin Sodium/ Sodium Chloride (Heparin 1000 units/500ml Premix) 1,000 unit ONCE PRN IV PICC LINE 12/22/19 09:00 12/24/19 08:59 Hydrochlorothiazide (Hydrodiuril) 25 mg DAILY ORAL 12/19/19 09:00 01/18/20 08:59 12/20/19 08:54 Hydromorphone HCl (Dilaudid) 0.5 mg Q6H PRN IVP For Pain 12/20/19 11:00 12/26/19 10:59 12/20/19 12:30 Lidocaine HCl (Xylocaine 1% 30ml) 30 ml ONCE PRN INJ PICC LINE 12/22/19 09:00 12/24/19 08:59 Metformin HCl (Glucophage) 500 mg TWICE A DAY ORAL 12/19/19 09:00 01/18/20 08:59 12/20/19 08:54 Multivitamins (Multivitamins) 1 tab DAILY ORAL 12/19/19 09:00 01/18/20 08:59 12/20/19 08:54 Ondansetron HCl (Zofran) 4 mg Q6H PRN IVP Nausea & Vomiting 12/19/19 01:45 01/18/20 01:44 Piperacillin Sod/ Tazobactam Sod 3.375 gm/Sodium Chloride 110 ml @ 27.5 mls/hr EVERY 8 HOURS IVPB 12/19/19 06:00 12/24/19 05:59 12/20/19 14:47 Polyethylene Glycol (Miralax) 17 gm HSPRN PRN ORAL Constipation 12/19/19 01:45 01/18/20 01:44 Vancomycin HCl (Vanco pharmacy to dose) 1 ea DAILY PRN MISC Per rx protocol 12/19/19 12:00 01/18/20 11:59 Vancomycin/Sodium Chloride 275 ml @ 183.333 mls/hr Q12HR@0100,1300 IVPB 12/19/19 13:00 12/24/19 12:59 12/20/19 12:29 Slim Javed MD Dec 20, 2019 17:22
--- NOTE | 2019-12-20 19:15 | NUR ---
HAND-OFF: Report given to MARY Cevallos. Endorsed POC.
--- NOTE | 2019-12-20 19:40 | NUR ---
NURSE NOTES: Received report from Kevin HERNANDEZ.The patient is alert and oriented x4 and does not seem to be in any acute distress at this time.The resp is even and unlabored and the Bilateral lung sounds are all clear on auscultation.She has a bedside commode and an electric Wheelchair she use for ambulation at home.The IV site at is patent and asymptomatic. The Bed in low and log level, Call light within reach. will continue to monitor
[2019-12-20 20:00] VITALS: BP 153/57
--- NOTE | 2019-12-20 21:00 | Consultation ---
DATE OF CONSULTATION: 12/20/2019 ADDENDUM Surgery note was reviewed. The patient, in addition to the left foot and ankle, it looks like drained abscess and wound infection and cellulitis. There also looks like bilateral leg cellulitis. More so on the left, however, there is some swelling of the right lower extremity c/w leg cellulitis. Again, we will continue vancomycin and Zosyn at this time to cover the soft tissue infections as described. Check final wound culture. Monitor sepsis with elevated white count. Continue wound care per Surgery. There was a recommendation for Podiatry evaluation for this patient. Continue vancomycin and Zosyn for MRSA, gram-negative anaerobe coverage for now. Slim Javed M.D. DR: HALLE JOB#: [id number] CC: CARMELO
--- NOTE | 2019-12-20 21:15 | Consultation ---
DATE OF CONSULTATION: 12/20/2019 INFECTIOUS DISEASE CONSULT ATTENDING PHYSICIAN: Dalia Holm M.D. REFERRING PHYSICIAN: Haseeb Mccurdy M.D. REASON FOR CONSULTATION: Left foot abscess, cellulitis, and infected wound. The patient's chief complaint coming into the hospital is cellulitis of the left foot. HISTORY OF PRESENT ILLNESS: This is a very pleasant 59-year-old female who presents to [facility] with left foot pain and swelling. The patient had what looks like a possible boil or abscess to the left foot that looks like it burst. Currently, her wound is fairly clean. The patient does have left foot cellulitis. Infectious Disease consultation is requested. It also looks like she could be septic with elevated white count. The patient was started on vancomycin and Zosyn. Wound culture has been ordered and is negative so far. MAR is noted. Orders were noted. Notes were reviewed. Case discussed with RN. The patient again is on vancomycin and Zosyn for the left foot cellulitis at this time. REVIEW OF SYSTEMS: CONSTITUTIONAL: The patient has no fever, chills, night sweats, or weight loss. HEAD AND NECK: No headache, neck stiffness, thrush, or dysphagia. CARDIAC: No chest pain or palpitations. GASTROINTESTINAL: No nausea, vomiting, abdominal pain, or diarrhea. GENITOURINARY: No urinary symptoms. No dysuria or frequency. PULMONARY: No congestion or shortness of breath. No hemoptysis or secretions. SKIN: No rash or itching. EXTREMITIES: She has left foot pain and leg pain in general. NEUROLOGIC: No seizure activity or generalized fatigue. No focal weakness. PAST MEDICAL HISTORY: Obesity, diabetes, hypertension. It looks like she has history of gout. She is on allopurinol. She has history of edema, history of cellulitis in the past, history of DVT in the past, history of venous stasis ulcers. She has a history of cholecystitis and cholecystectomy. ALLERGIES: Sulfa drugs. No penicillin allergies. SOCIAL HISTORY: Negative for smoking, alcohol, or drug abuse. FAMILY HISTORY: Noncontributory. Negative for tuberculosis or cancer. MEDICATIONS: Upon reviewing the MAR, the patient is on the following medications: She is on heparin, gabapentin, hydromorphone, vancomycin, Zosyn, famotidine, docusate, allopurinol, apixaban, furosemide, multivitamin, diphenhydramine, acetaminophen, Zofran, IV fluids. Outside medications noted and reconciled. PHYSICAL EXAMINATION: VITAL SIGNS: Temperature 98.5, pulse 85, respiratory rate 20, blood pressure 118/66, saturation 98% on room air. GENERAL: Alert, responsive, and oriented x3. No acute distress. HEENT: Oral exam, no thrush. Eye exam, no icterus. Normocephalic. NECK: Supple. No JVD. HEART: Regular. No gallop or murmur. No friction rub. ABDOMEN: Soft. Positive bowel sounds. Nontender. LUNGS: Clear bilaterally. No rhonchi or rales. SKIN: No rash. MUSCULOSKELETAL: No effusions. Legs have cellulitis. The patient also has left left leg and ankle swelling. Wound of the left foot mostly clean. PERIPHERAL VASCULAR: No gangrene. She has left foot cellulitis, warmth, redness with an open wound that is fairly clean. No septic arthritis. NEUROLOGIC: Intact. LINE SITES: Without phlebitis. GENITOURINARY: No Shah. No CVA tenderness. LABORATORY DATA: White count 15.8, hemoglobin 10.6. White count yesterday was 17.2. Creatinine 1.1. LFTs noted. UA had leukocyte esterase negative, zero white cells. Blood cultures negative to date. Wound culture of the left foot is negative. SARS-COVID testing is negative. IMAGING STUDIES: X-rays of the ankles showed soft tissue swelling, no fracture, her ankle and foot area. Chest x-ray showed no acute disease. No acute cardiopulmonary disease. ASSESSMENT AND PLAN: 1. The patient has left foot cellulitis, what sounds like a boil or an abscess that self-drained. The patient is being followed by Surgery. Per surgery recommendations, no acute surgical intervention at this time. The patient also has in addition to the left foot cellulitis and abscess maybe some left ankle cellulitis based on x-ray findings and maybe left lower extremity cellulitis too. Continue vancomycin and Zosyn at this time for left foot cellulitis and abscess and also left ankle and leg cellulitis. Monitor sepsis, elevated white count. Check final wound culture of the left foot. Continue vancomycin and Zosyn for now and will adjust antibiotics accordingly. 2. The patient has diabetes. 3. Hypertension. 4. History of DVT. 5. History of acute cholecystitis. 6. History of gout. 7. Diabetes and hypertension per primary care team. 8. Obesity. 9. Monitor creatinine closely on vancomycin. 10. Wound care per Surgery. 11. History of edema and cellulitis. 12. History of anemia. 13. History of cholecystectomy. 14. Continue treatment per primary consultants. 15. Allergy to sulfa drugs. 16. Social history negative. 17. Family history noncontributory. 18. MAR was noted. 19. Case discussed with RN. ADDENDUM: Monitor sepsis status on vancomycin and Zosyn. Most likely source of sepsis is left lower extremity cellulitis. Continue vancomycin and Zosyn. Check final cultures also. Slim Javed M.D. DR: ALEAH JOB#: [id number] CC: CARMELO
[2019-12-21] VITALS: BP 135/72
[2019-12-21] MEDS: Vancomycin 1.25gm/NS Premix q24h IVPB SCH ×2 (01:15→12:53)
[2019-12-21 04:00] VITALS: BP 138/74
--- NOTE | 2019-12-21 05:00 | NUR ---
NURSE NOTES: The patient was able to sleep for about 6 hrs last night and was also able to use a bedpan to urinate. She complained of pain and was given her Dilaudid 0.5 well tolerated.
[2019-12-21] MEDS: Piperacillin/Tazobactam 3.375 GM in NS 110 ML IVPB SCH ×3 (05:48→21:21)
[2019-12-21 06:43] LABS: BASOPHILS % (AUTO) 1.4 % (0.0-2.0); EOSINOPHILS % (AUTO) 1.3 % (0.0-3.0); HEMATOCRIT 32.8 % (37.0-47.0); HEMOGLOBIN 9.7 G/DL (12.0-16.0); LYMPHOCYTES % (AUTO) 13.4 % (20.0-45.0); MEAN CORPUSCULAR VOLUME 84 FL (80-99); MONOCYTES % (AUTO) 5.9 % (1.0-10.0); PLATELET COUNT 319 K/UL (150-450); RED BLOOD COUNT 3.92 M/UL (4.20-5.40); RED CELL DISTRIBUTION WIDTH 15.4 % (11.6-14.8); WHITE BLOOD COUNT 15.5 K/UL (4.8-10.8)
[2019-12-21 07:17] LABS: ALANINE AMINOTRANSFERASE 23 U/L (12-78); ALBUMIN 2.4 G/DL (3.4-5.0); ALBUMIN/GLOBULIN RATIO 0.5 (1.0-2.7); ALKALINE PHOSPHATASE 69 U/L (46-116); ANION GAP 6 mmol/L (5-15); ASPARTATE AMINO TRANSFERASE 19 U/L (15-37); BILIRUBIN,TOTAL 0.1 MG/DL (0.2-1.0); BLOOD UREA NITROGEN 16 mg/dL (7-18); CALCIUM 8.6 MG/DL (8.5-10.1); CARBON DIOXIDE 31 MMOL/L (21-32); CHLORIDE 103 MMOL/L (98-107); POTASSIUM 3.5 MMOL/L (3.5-5.1); SODIUM 140 MMOL/L (136-145)
--- NOTE | 2019-12-21 07:20 | NUR ---
HAND-OFF: Report given to Cristian HERNANDEZ and Anne HERNANDEZ.
--- NOTE | 2019-12-21 07:51 | NUR ---
NURSE NOTES: Report received from MARY Cevallos. Patient observed to be awake, alert and oriented x4 lying in bed with HOB elevated. On room air, no s/sx of SOB/Distress or any gi/gu discomfort at this moment. Paitent able to verbalize discomfort felt in lower extremities. IV site located in left internal jugular vein. IV site inplace, intact and asymptomatic, no s/sx of swelling, warmth, or infection. Head placed in lowest and locked position. Call light placed within reach and will continue to monitor.
[2019-12-21 08:00] VITALS: BP 120/64
[2019-12-21] MEDS: hydroCHLOROthiazide 25mg cap ORAL SCH (08:17)
[2019-12-21] MEDS: metFORMIN 500mg tab ORAL SCH ×2 (08:17→17:46)
[2019-12-21] MEDS: Allopurinol 100mg Tab ORAL SCH (08:17)
[2019-12-21] MEDS: Docusate 100mg cap ORAL SCH ×2 (08:17→20:28)
[2019-12-21] MEDS: Furosemide 40mg tab ORAL SCH (08:17)
[2019-12-21] MEDS: Eliquis 5mg tablet ORAL SCH ×2 (08:17→17:46)
[2019-12-21] MEDS: Hydromorphone 0.5mg/0.5ml inj IVP PRN ×3 (08:19→20:31)
--- NOTE | 2019-12-21 10:18 | General Progress Note ---
Assessment/Plan Problem List: (1) Cellulitis (2) lateral posterior left leg superficial skin breakdown ulcer (3) leg pain (4) Deep vein thrombosis (DVT) of left lower extremity ICD Codes: I82.402 - Acute embolism and thrombosis of unspecified deep veins of left lower extremity SNOMED: 919302213 (5) Poor intravenous access ICD Codes: Z87.898 - Poor intravenous access SNOMED: 088234583 (6) Bilateral lower leg cellulitis ICD Codes: L03.116 - Cellulitis of left lower limb; L03.115 - Cellulitis of right lower limb SNOMED: 926928304 (7) Diabetes type 2, controlled ICD Codes: E11.9 - Type 2 diabetes mellitus without complications SNOMED: 42249675, 121054963 (8) Morbid obesity ICD Codes: E66.01 - Morbid obesity SNOMED: 239070324 Status: stable Assessment/Plan: 59 year old female with multiple commodities presents with cellulitis of lower extremity. #Left foot ulcer s/p biol rupture #B/L lower extremity cellulitis #Leukocytosis -IV antibiotics per ID - Vanc and Zosyn -Follow blood cultures -Wound care -Trend WBC -Consult to general surgery - appreciate recs- placed IJ for IV access - PICC line to be placed Sunday -Consult to podiatry - appreciate recs #Lowe extremity DVT #Factor V Leiden -Continue with home Eliquis #NID Diabetes mellitus -Patient prefers to continue with Metformin Vs. ISS -Glucose checks qAC qHS -CC diet Dispo to SNF on Thursday 12/21 I spent 36 minutes on this patient with 20 min coordinating care. Discussed with Consultants, RNs and pharmacy. Subjective Date patient seen: Dec 21, 2019 Time patient seen: 08:45 Constitutional: Reports: no symptoms HEENT: Reports: no symptoms Cardiovascular: Reports: no symptoms Respiratory: Reports: no symptoms Gastrointestinal/Abdominal: Reports: no symptoms Genitourinary: Reports: no symptoms Neurologic/Psychiatric: Reports: no symptoms Endocrine: Reports: no symptoms Allergies: Coded Allergies: SULFA (SULFONAMIDE ANTIBIOTICS) (Unverified Allergy, Unknown, 05/02/15) allergy history per Dr. Jones Subjective Patient happy she had EJ placed so she can receive her medications. No complaints. Objective Last 24 Hour Vital Signs Date Time Temp Pulse Resp B/P (MAP) Pulse Ox O2 Delivery O2 Flow Rate FiO2 12/21/19 09:00 Room Air 12/21/19 08:00 97.5 95 20 120/64 (82) 99 12/21/19 04:00 97.9 83 20 138/74 (95) 96 12/21/19 00:00 97.5 90 22 135/72 (93) 97 12/20/19 21:00 Room Air 12/20/19 20:00 98.2 73 20 153/57 (89) 96 12/20/19 16:00 98.5 85 20 118/66 (83) 98 12/20/19 12:00 96.4 58 12 107/60 (76) 94 Intake and Output 12/20/19 12/21/19 19:00 07:00 Intake Total 1326.666 ml 650 ml Output Total 850 ml Balance 1326.666 ml -200 ml Intake Oral 960 ml 650 ml IV Total 366.666 ml Output Urine Total 850 ml # Voids 4 2 # Bowel Movements 1 1 Laboratory Tests 12/20/19 12:05: Vancomycin Level Trough 11.0 12/21/19 06:10: White Blood Count 15.5H, Red Blood Count 3.92L, Hemoglobin 9.7L, Hematocrit 32.8L, Mean Corpuscular Volume 84, Mean Corpuscular Hemoglobin 24.8L, Mean Corpuscular Hemoglobin Concent 29.7L, Red Cell Distribution Width 15.4H, Platelet Count 319, Mean Platelet Volume 6.4L, Neutrophils (%) (Auto) 78.0H, Lymphocytes (%) (Auto) 13.4L, Monocytes (%) (Auto) 5.9, Eosinophils (%) (Auto) 1.3, Basophils (%) (Auto) 1.4, Sodium Level 140, Potassium Level 3.5, Chloride Level 103, Carbon Dioxide Level 31, Anion Gap 6, Blood Urea Nitrogen 16, Creatinine 1.0, Estimat Glomerular Filtration Rate > 60, Glucose Level 90, Calcium Level 8.6, Total Bilirubin 0.1L, Aspartate Amino Transf (AST/SGOT) 19, Alanine Aminotransferase (ALT/SGPT) 23, Alkaline Phosphatase 69, Total Protein 7.0, Albumin 2.4L, Globulin 4.6, Albumin/Globulin Ratio 0.5L Height (Feet): 6 Height (Inches): 1.00 Weight (Pounds): 410 General Appearance: no apparent distress, alert, morbidly obese, alert oriented x3 EENT: PERRL/EOMI, normal ENT inspection Neck: normal alignment, supple, normal inspection Cardiovascular: normal peripheral pulses, normal rate, regular rhythm, no gallop/murmur, no JVD Respiratory/Chest: chest wall non-tender, lungs clear, no respiratory distress , no accessory muscle use, decreased breath sounds Abdomen: normal bowel sounds, non tender, soft, no organomegaly, no mass Pelvis: normal external exam Extremities: normal range of motion, non-tender, normal inspection Edema: 1+ Leg (L), 1+ Leg (R) Edema: mild edema 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 Dec 21, 2019 10:18
[2019-12-21 12:00] VITALS: BP 128/72
[2019-12-21] MEDS ORDERED: Heparin1,000 units/500ml Premix(Conc:2 units/ml) IV PRN (12:00)
[2019-12-21] MEDS ORDERED: Lidocaine 1% Plain 30 ml INJ PRN (12:00)
--- NOTE | 2019-12-21 12:52 | Surgery Progress Note ---
Surgery Progress Note Subjective Symptoms: improved, tolerating diet, passing flatus, BM Objective Last 24 Hour Vital Signs Date Time Temp Pulse Resp B/P (MAP) Pulse Ox O2 Delivery O2 Flow Rate FiO2 12/21/19 12:00 97.4 80 17 128/72 (90) 98 12/21/19 09:00 Room Air 12/21/19 08:00 97.5 95 20 120/64 (82) 99 12/21/19 04:00 97.9 83 20 138/74 (95) 96 12/21/19 00:00 97.5 90 22 135/72 (93) 97 12/20/19 21:00 Room Air 12/20/19 20:00 98.2 73 20 153/57 (89) 96 12/20/19 16:00 98.5 85 20 118/66 (83) 98 I&O Intake and Output 12/20/19 12/21/19 19:00 07:00 Intake Total 1326.666 ml 650 ml Output Total 850 ml Balance 1326.666 ml -200 ml Intake Oral 960 ml 650 ml IV Total 366.666 ml Output Urine Total 850 ml # Voids 4 2 # Bowel Movements 1 1 Dressing: dry Wound: clean Cardiovascular: RSR Respiratory: clear Abdomen: soft, non-tender, present bowel sounds Extremities: edema, no cyanosis, other Laboratory Tests Test 12/21/19 06:10 White Blood Count 15.5 K/UL (4.8-10.8) H Red Blood Count 3.92 M/UL (4.20-5.40) L Hemoglobin 9.7 G/DL (12.0-16.0) L Hematocrit 32.8 % (37.0-47.0) L Mean Corpuscular Volume 84 FL (80-99) Mean Corpuscular Hemoglobin 24.8 PG (27.0-31.0) L Mean Corpuscular Hemoglobin Concent 29.7 G/DL (32.0-36.0) L Red Cell Distribution Width 15.4 % (11.6-14.8) H Platelet Count 319 K/UL (150-450) Mean Platelet Volume 6.4 FL (6.5-10.1) L Neutrophils (%) (Auto) 78.0 % (45.0-75.0) H Lymphocytes (%) (Auto) 13.4 % (20.0-45.0) L Monocytes (%) (Auto) 5.9 % (1.0-10.0) Eosinophils (%) (Auto) 1.3 % (0.0-3.0) Basophils (%) (Auto) 1.4 % (0.0-2.0) Sodium Level 140 MMOL/L (136-145) Potassium Level 3.5 MMOL/L (3.5-5.1) Chloride Level 103 MMOL/L (98-107) Carbon Dioxide Level 31 MMOL/L (21-32) Anion Gap 6 mmol/L (5-15) Blood Urea Nitrogen 16 mg/dL (7-18) Creatinine 1.0 MG/DL (0.55-1.30) Estimat Glomerular Filtration Rate > 60 mL/min (>60) Glucose Level 90 MG/DL (74-106) Calcium Level 8.6 MG/DL (8.5-10.1) Total Bilirubin 0.1 MG/DL (0.2-1.0) L Aspartate Amino Transf (AST/SGOT) 19 U/L (15-37) Alanine Aminotransferase (ALT/SGPT) 23 U/L (12-78) Alkaline Phosphatase 69 U/L (46-116) Total Protein 7.0 G/DL (6.4-8.2) Albumin 2.4 G/DL (3.4-5.0) L Globulin 4.6 g/dL Albumin/Globulin Ratio 0.5 (1.0-2.7) L Plan Problems: (1) History of DVT (deep vein thrombosis) (2) Venous stasis ulcer of left ankle Assessment & Plan: chronic outpatient care with podiatry local wound care being provided (3) Morbid obesity (4) Allergic reaction (5) Left leg cellulitis Assessment & Plan: acute worsening left ankle leg cellulitis states blister now popped serous drainage tender warm edema plain films noted dressings changed keep bilateral lower extremities elevated while in bed xerofoam to left foot and ankle, cover with abd and wrap Podiatry eval abx as per ID okay to ambulate diet as tolerated will follow with recs thank you There are similar changes compared to the contralateral right. Narrowing of Bohler's angle with indistinctness subtalar joints noted. Definitive osteophyte noted both anteriorly and posteriorly. No definite acute fractures seen. Ankle mortise appears anatomic. There is mild generalized soft tissue swelling IMPRESSION: SOFT TISSUE SWELLING. NO DEFINITE ACUTE FRACTURE. APPARENT ARTHRITIC CHANGES OF THE SUBTALAR JOINT IS SIMILAR TO THE CONTRALATERAL RIGHT Patient has poor peripheral access IV line is infiltrated she cannot obtain her antibiotics or pain medication at this time. Using ultrasound guidance a left external jugular vein was identified and a 22- gauge catheter was placed under ultrasound guidance in the left external jugular. Good venous flow identified. Line viable. 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 (14) Acute blood loss anemia (15) Thrush (16) Gout (17) Morbid obesity (18) Anemia (19) Back pain (20) Cough (21) Diarrhea (22) SOB (shortness of breath) (23) Flank pain (24) Leukocytosis (25) Leukocytosis (26) Post-menopausal bleeding (27) Vaginal bleeding (28) Hypoalbuminemia (29) Rectal bleeding (30) Venous stasis (31) Hypertension (32) Pneumonitis (33) Obesity (34) HTN (hypertension) (35) Chronic pain (36) Muscle ache (37) Cellulitis, leg (38) Cellulitis, leg (39) Clostridium difficile colitis (40) ACS (acute coronary syndrome) (41) Diabetes type 2, controlled (42) Factor V Leiden (43) Shoulder pain, right (44) Cellulitis of right leg (45) Cellulitis of right leg (46) Chronic wound of extremity (47) Flank pain, acute (48) Injury of lower extremity (49) Left leg cellulitis (50) Bilateral cellulitis of lower leg (51) Bilateral lower leg cellulitis (52) Poor intravenous access (53) DVT, recurrent, lower extremity, acute and chronic (54) Deep vein thrombosis (DVT) of left lower extremity (55) Acute DVT of LLE (56) Cellulitis (57) lives on own at home (58) lateral posterior left leg superficial skin breakdown ulcer (59) abdominal wall swelling (60) leg pain (61) probable abscess Chuy Damian Dec 21, 2019 12:52
--- NOTE | 2019-12-21 14:14 | Neurology Progress Note ---
Interim History Interim History Interim History no new deficits, tolerating gabapentin Objective Physical Exam Last Vital Signs Date Time Temp Pulse Resp B/P (MAP) Pulse Ox O2 Delivery O2 Flow Rate FiO2 12/21/19 12:00 97.4 80 17 128/72 (90) 98 12/21/19 09:00 Room Air Laboratory Tests Test 12/21/19 06:10 White Blood Count 15.5 K/UL (4.8-10.8) H Red Blood Count 3.92 M/UL (4.20-5.40) L Hemoglobin 9.7 G/DL (12.0-16.0) L Hematocrit 32.8 % (37.0-47.0) L Mean Corpuscular Volume 84 FL (80-99) Mean Corpuscular Hemoglobin 24.8 PG (27.0-31.0) L Mean Corpuscular Hemoglobin Concent 29.7 G/DL (32.0-36.0) L Red Cell Distribution Width 15.4 % (11.6-14.8) H Platelet Count 319 K/UL (150-450) Mean Platelet Volume 6.4 FL (6.5-10.1) L Neutrophils (%) (Auto) 78.0 % (45.0-75.0) H Lymphocytes (%) (Auto) 13.4 % (20.0-45.0) L Monocytes (%) (Auto) 5.9 % (1.0-10.0) Eosinophils (%) (Auto) 1.3 % (0.0-3.0) Basophils (%) (Auto) 1.4 % (0.0-2.0) Sodium Level 140 MMOL/L (136-145) Potassium Level 3.5 MMOL/L (3.5-5.1) Chloride Level 103 MMOL/L (98-107) Carbon Dioxide Level 31 MMOL/L (21-32) Anion Gap 6 mmol/L (5-15) Blood Urea Nitrogen 16 mg/dL (7-18) Creatinine 1.0 MG/DL (0.55-1.30) Estimat Glomerular Filtration Rate > 60 mL/min (>60) Glucose Level 90 MG/DL (74-106) Calcium Level 8.6 MG/DL (8.5-10.1) Total Bilirubin 0.1 MG/DL (0.2-1.0) L Aspartate Amino Transf (AST/SGOT) 19 U/L (15-37) Alanine Aminotransferase (ALT/SGPT) 23 U/L (12-78) Alkaline Phosphatase 69 U/L (46-116) Total Protein 7.0 G/DL (6.4-8.2) Albumin 2.4 G/DL (3.4-5.0) L Globulin 4.6 g/dL Albumin/Globulin Ratio 0.5 (1.0-2.7) L Impression/Recommendations Problems: (1) History of DVT (deep vein thrombosis) (2) Venous stasis ulcer of left ankle (3) Morbid obesity (4) Allergic reaction (5) Left leg cellulitis (6) Sepsis (7) Factor 5 Leiden mutation, heterozygous (8) DVT, bilateral lower limbs (9) Acute cholecystitis (10) Acute cholecystitis (11) Hypokalemia (12) Hypokalemia (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 (14) Acute blood loss anemia (15) Thrush (16) Gout (17) Morbid obesity (18) Anemia (19) Back pain (20) Cough (21) Diarrhea (22) SOB (shortness of breath) (23) Flank pain (24) Leukocytosis (25) Leukocytosis (26) Post-menopausal bleeding (27) Vaginal bleeding (28) Hypoalbuminemia (29) Rectal bleeding (30) Venous stasis (31) Hypertension (32) Pneumonitis (33) Obesity (34) HTN (hypertension) (35) Chronic pain (36) Muscle ache (37) Cellulitis, leg (38) Cellulitis, leg (39) Clostridium difficile colitis (40) ACS (acute coronary syndrome) (41) Diabetes type 2, controlled (42) Factor V Leiden (43) Shoulder pain, right (44) Cellulitis of right leg (45) Cellulitis of right leg (46) Chronic wound of extremity (47) Flank pain, acute (48) Injury of lower extremity (49) Left leg cellulitis (50) Bilateral cellulitis of lower leg (51) Bilateral lower leg cellulitis (52) Poor intravenous access (53) DVT, recurrent, lower extremity, acute and chronic (54) Deep vein thrombosis (DVT) of left lower extremity (55) Acute DVT of LLE (56) Cellulitis (57) lives on own at home (58) lateral posterior left leg superficial skin breakdown ulcer (59) abdominal wall swelling (60) leg pain (61) probable abscess Status: stable Diagnostic Impression Diabetic polyneuropathy, Add gabapentin 100 mg bid cont anticoagulation COnt PT OT COnt Atb Prosper Murray MD Dec 21, 2019 14:14
[2019-12-21 16:00] VITALS: BP 117/76
--- NOTE | 2019-12-21 19:15 | NUR ---
NURSE HAND-OFF: Important Events on Shift:PICC line insertion on 12/22/19. consent done. Patient Status: stable Diet: regular Pending Orders: CBC, CMP 12/22/19 Pending Results/Labs:n/a Pending MD notification:n/a Latest Vital Signs: Temperature 97.5 , Pulse 85 , B/P 117 /76 , Respiratory Rate 18 , O2 SAT 96 , Room Air, O2 Flow Rate . Vital Sign Comment: stable Latest Ponce Fall Score: 20 Fall Risk: Low Risk Safety Measures: Call light Within Reach, Bed Alarm , Side Rails Side Rails x2, Bed position Low and Locked. Fall Precautions: Patient Fall Education Report given to MARY Matthews.
--- NOTE | 2019-12-21 19:44 | NUR ---
NURSE NOTES: Report received from MARY Gary. Pt a/o x4 lying in bed. On room air breathing regular and unlabored, no distress noted. IV site located in left internal jugular vein is intact and patent.Dressing C/D/I. Per report pt has PICC line insertion 12/31 and consent is signed.Bed in lowest and locked position. Call light placed within reach and will continue to monitor.
[2019-12-21 20:00] VITALS: BP 146/90
[2019-12-21] MEDS ORDERED: Dyna-Hex 2% Top Sol 2oz TOPIC SCH (20:00)
[2019-12-22] VITALS: BP 132/72
--- NOTE | 2019-12-22 00:46 | NUR ---
NURSE NOTES: Pt IV stopped working. Tried to get access was not successful. ICU nurse also tried but was not able to. Notified DR. Ashraf that we are not able to administer the IV antibiotics. MD only ordered PO medication for pain until pt gets PICC tomorrow.
[2019-12-22] MEDS: Vancomycin 1.25gm/NS Premix q24h IVPB SCH ×2 (01:00→13:00)
--- NOTE | 2019-12-22 01:15 | Consultation ---
DATE OF CONSULTATION: 12/20/2019 CONSULTING PHYSICIAN: Flako Vargas DPM. REFERRING PHYSICIAN: Dalia Holm MD. REASON FOR CONSULTATION: Ulceration to the left foot. HISTORY OF PRESENT ILLNESS: This is a 59-year-old diabetic patient who was admitted to [facility] with ulceration to the left foot and cellulitis. The patient states that she noted the blister formation and a partner at home deroofed the blister, drained the fluid and shortly after the patient noticed erythema and swelling, she decided to be admitted to [facility] for proper evaluation and treatment. The patient is currently under Dr. Holm's treatment and observation. PAST MEDICAL HISTORY: Per Dr. Holm, diabetes, peripheral vascular disease, cellulitis. PODIATRY EXAMINATION: VASCULAR: Dorsalis pedis is palpable 1/4. Posterior tibial artery are nonpalpable. There is edema noted to bilateral foot, left greater than right, pitting in nature. NEUROLOGICAL: The patient is sensate, but there is slight diminished and sharp sensation distally, otherwise intact with minor borderline neuropathic changes. MUSCULOSKELETAL: The patient is currently bedbound but I believe she uses wheelchair. Muscle strength is noted to be within normal limits. Range of motion is decreased bilaterally. No other gross abnormalities noted. DERMATOLOGICAL: Attention was directed to the left foot where a blister was present with skin intact and some fluid at the base. The base of the ulceration is granulating at the dermal layer. There is no probing or undermining noted. There is no purulent discharge. There is slight serosanguineous discharge cellulitis and periwound, otherwise within normal limits and stable. ASSESSMENT AND PLAN: This is a diabetic patient with peripheral vascular disease with a blister ulceration to the dorsum of the left foot. I and D by bedside was initiated with removing all nonviable tissue and drainable fluid. The patient tolerated the procedure well. Order was written to cleanse the wound with normal saline and application of Xeroform. Continue antibiotic for cellulitis needed. Johnny SimonPhi DR: Laury JOB#: [id number] CC:
[2019-12-22] MEDS: HYDROmorphone 4mg tab ORAL PRN ×3 (03:19→16:03)
[2019-12-22 04:00] VITALS: BP 111/68
[2019-12-22] MEDS: Piperacillin/Tazobactam 3.375 GM in NS 110 ML IVPB SCH ×2 (06:00→14:00)
--- NOTE | 2019-12-22 07:39 | NUR ---
NURSE NOTES: made initial round, pt is eating breakfast. no acute distress noted. exchanged greetings with pt, will follow plan of care for the day. call light is within reach.
--- NOTE | 2019-12-22 07:44 | NUR ---
NURSE HAND-OFF: Important Events on Shift: Pt will have PICC placement today. Consent is already signed. Was not able to give IV antibiotics on shift bacause of no IV access (MD aware). MD ordered po diludid for patient until PICC access (D/C after) Patient Status: stable Diet: Regular Pending Orders: Pending Results/Labs: Pending MD notification: Latest Vital Signs: Temperature 97.9 , Pulse 82 , B/P 111 /68 , Respiratory Rate 20 , O2 SAT 95 , Room Air, O2 Flow Rate . Vital Sign Comment: Latest Ponce Fall Score: 20 Fall Risk: Low Risk Safety Measures: Call light Within Reach, Bed Alarm , Side Rails Side Rails x2, Bed position Low and Locked. Fall Precautions: Patient Fall Education Report given to MARY Brown. Addendum: 12/22/19 at 0749 by Ajit Ruiz RN report given to MARY denise
[2019-12-22 08:00] VITALS: BP 115/89
[2019-12-22 08:35] LABS: HEMATOCRIT 32.5 % (37.0-47.0); HEMOGLOBIN 9.7 G/DL (12.0-16.0); MEAN CORPUSCULAR VOLUME 83 FL (80-99); PLATELET COUNT 339 K/UL (150-450); RED CELL DISTRIBUTION WIDTH 15.9 % (11.6-14.8); WHITE BLOOD COUNT 18.3 K/UL (4.8-10.8)
[2019-12-22] MEDS ORDERED: Lidocaine 1% Plain 30 ml INJ PRN (09:00)
[2019-12-22] MEDS ORDERED: Heparin1,000 units/500ml Premix(Conc:2 units/ml) IV PRN (09:00)
[2019-12-22] MEDS: hydroCHLOROthiazide 25mg cap ORAL SCH (09:01)
[2019-12-22] MEDS: Allopurinol 100mg Tab ORAL SCH (09:01)
[2019-12-22] MEDS: Eliquis 5mg tablet ORAL SCH (09:02)
[2019-12-22] MEDS: Furosemide 40mg tab ORAL SCH (09:03)
[2019-12-22] MEDS: Docusate 100mg cap ORAL SCH (09:03)
[2019-12-22] MEDS: metFORMIN 500mg tab ORAL SCH (09:03)
[2019-12-22 09:14] LABS: ALANINE AMINOTRANSFERASE 23 U/L (12-78); ALBUMIN 2.5 G/DL (3.4-5.0); ALBUMIN/GLOBULIN RATIO 0.5 (1.0-2.7); ALKALINE PHOSPHATASE 71 U/L (46-116); ANION GAP 7 mmol/L (5-15); ASPARTATE AMINO TRANSFERASE 24 U/L (15-37); BILIRUBIN,TOTAL 0.2 MG/DL (0.2-1.0); BLOOD UREA NITROGEN 12 mg/dL (7-18); CALCIUM 9.2 MG/DL (8.5-10.1); CARBON DIOXIDE 33 MMOL/L (21-32); CHLORIDE 98 MMOL/L (98-107); POTASSIUM 3.3 MMOL/L (3.5-5.1); SODIUM 137 MMOL/L (136-145)
--- NOTE | 2019-12-22 09:54 | NUR ---
*-*DISCHARGE PLANNING*-* PATIENT HAS BEEN REFERRED TO: [facility] P: [phone] S/W MANUEL, HE STATED HE IS PURCHASING A BARIATRIC BED TODAY SO THAT PATIENT CAN COME TODAY. ROOM#42.B IS ON HOLD, WILL CALL BACK WHEN RECEIVES BED.
--- NOTE | 2019-12-22 10:41 | NUR ---
RD ASSESSMENT & RECOMMENDATIONS SEE CARE ACTIVITY FOR COMPLETE ASSESSMENT DAILY ESTIMATED NEEDS: Needs based on Obesity, ulcer (103 kg abw) 15-20 kcals/kg 1545-260 total kcals 1.25-1.5 g protein/kg 129-155 g total protein Fluid per MD, on lasix NUTRITION DIAGNOSIS: * Decreased fat and sodium needs r/t morbid obesity as evidenced by BMI 54, @248% IBW, elev BP, on diuretics. CURRENT DIET:Regular PO DIET RECOMMENDATIONS--->>> CARDIAC / CCHO LOW DIET + DOUBLE PROTEIN PORTIONS ADDITIONAL RECOMMENDATIONS: 1) Calibrate bed scale for accurate daily weights on diuretics 2) Provided DM diet edu 3) Monitor lytes daily, on lasix, replete as needed- low K 4) S/p L foot I&D-> add GABBY BID + Vit C 250mg daily .
--- NOTE | 2019-12-22 11:15 | NUR ---
*-*DISCHARGE PLANNING*-* PATIENT HAS BEEN ACCEPTED TO: [facility] P: [phone] S/W MANUEL, PATIENT HAS BEEN ACCEPTED TO ROOM# 42.B SKILLED. ~~~~~~~~~~NOTIFIED NURSES ~~~~~~~~~NEED DISCHARGE ORDER~~~~~~~~
[2019-12-22 12:00] VITALS: BP 129/103
[2019-12-22] MEDS ORDERED: GABAPENTIN100 MG ORAL (12:27)
[2019-12-22] MEDS ORDERED: CEPHALEXIN500 MG ORAL (12:30)
--- NOTE | 2019-12-22 12:36 | Discharge Summary ---
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 Who presented with nonhealing left ankle ulcer. Admitted to medical service with sepsis due to left ankle cellulitis, nonhealing ulcer , seen by ID, Podiatry, treated with vanco and Zosyn initially , wound cultures grew MSSA and E. coli, underwent bedside debridement by Dr. Vargas. X-ray ankle negative for osteo. Will be discharged to Rehab on [address] due to deconditioning, will complete 10 more days days of PO Keflex 500 mg qid per ID recs. Consultations ID, Podiatry, Surgery Procedures None Hospital Course Admitted to medical service with sepsis due to left ankle cellulitis, nonhealing ulcer , seen by ID, Podiatry, treated with vanco and Zosyn initially , wound cultures grew MSSA and E. coli, underwent bedside debridement by Dr. Vargas. X-ray ankle negative for osteo. Will be discharged to Rehab on [address] due to deconditioning, will complete 10 more days days of PO Keflex 500 mg qid per ID recs. Discharge Diagnoses: #Sepsis , present on admit #Left foot ulcer s/p biol rupture #B/L lower extremity cellulitis #Leukocytosis #Lowe extremity DVT #Factor V Leiden #NID Diabetes mellitus A total of 35 minutes was spent on this patient's discharge including but not limited to examining the patient, discharge medication reconciliation, prescriptions, discharge instructions, coordination of follow-up, and documenting the discharge summary. I spent an additional 35 minutes on review of medical records including prior outside hospital records, consult notes, progress notes, procedures, imaging, labs, hemodynamics, and other clinical documentation. Discharge Medications New Medications: Cephalexin* (Keflex*) 500 Mg Capsule 500 MG ORAL EVERY 6 HOURS for 10 Days, CAP Gabapentin* (Gabapentin*) 100 Mg Capsule 100 MG ORAL Q12H PRN for 15 Days, #15 CAP Continued Medications: Allopurinol* (Allopurinol*) 100 Mg Tablet 100 MG ORAL DAILY for , TAB (This prescription has been renewed) Apixaban (Eliquis) 5 Mg Tablet 5 MG PO BID, TAB (This prescription has been renewed) Docusate Sodium* (Colace*) 100 Mg Capsule 100 MG ORAL TWICE A DAY, CAP Febuxostat (Uloric) 40 Mg Tablet 40 MG ORAL DAILY, TAB 0 Refills Furosemide* (Lasix*) 40 Mg Tablet 40 MG ORAL DAILY, #30 TAB Hydrochlorothiazide* (Hydrochlorothiazide*) 25 Mg Tablet 25 MG ORAL DAILY, TAB (This prescription has been renewed) Hydrocodone Bit/Acetaminophen 7.5-300 Mg Tabl (Vicodin Es 7.5-300 Mg Tablet) 1 Each Tablet 1 TAB ORAL Q4H PRN for For Pain, #30 TAB 0 Refills (This prescription has been renewed) Liraglutide (Saxenda) 3 Mg/0.5 Ml Pen.injctr 3 MG SQ DAILY, EA (This prescription has been renewed) Metformin Hcl* (Metformin Hcl*) 500 Mg Tablet 500 MG ORAL TWICE A DAY for DM, TAB (This prescription has been renewed) Multivitamin (Daily Mario) 1 Each Tablet 1 TAB ORAL DAILY, #30 TAB 0 Refills (This prescription has been renewed) Discontinued Medications: Acetaminophen With Codeine (T#3) (Tylenol With Codeine #3 Tablet) Y Tab 1 TAB ORAL Q4H PRN for For Pain, TAB Benazepril Hcl* (Benazepril Hcl*) 20 Mg Tablet 20 MG ORAL DAILY, TAB Ciprofloxacin Hcl* (Ciprofloxacin Hcl*) 500 Mg Tablet 500 MG ORAL Q12H, #14 TAB 0 Refills Ibuprofen (Motrin) 600 Mg Tablet 600 MG ORAL THREE TIMES A DAY, #30 TAB 0 Refills Metronidazole* (Flagyl*) 500 Mg Tablet 500 MG ORAL THREE TIMES A DAY, #21 TAB Multivitamin (Daily Mario) 1 Each Tablet 1 TAB ORAL DAILY for supplement, #30 TAB 0 Refills Discharge Condition Upon Discharge: improving Discharge Vital Signs Last Vital Signs Date Time Temp Pulse Resp B/P (MAP) Pulse Ox O2 Delivery O2 Flow Rate FiO2 12/22/19 09:00 Room Air 12/22/19 08:00 97.9 91 20 115/89 (98) 97 Discharge Disposition Patient was discharged to SNF Discharge Diagnoses: (1) Left leg cellulitis (2) Factor 5 Leiden mutation, heterozygous (3) DVT, bilateral lower limbs Eh Ricardo MD Dec 22, 2019 12:36
--- NOTE | 2019-12-22 13:01 | NUR ---
*-*DISCHARGE PLANNING*-* PATIENT HAS BEEN ACCEPTED TO: [facility] P: [phone] FOR NURSE TO NURSE REPORT ROOM# 42.B SKILLED [facility] TRANSPORTATION SET FOR WILL CALL, S/W JOANA [id number]
--- NOTE | 2019-12-22 13:55 | NUR ---
NURSE NOTES:WOUND CARE FOLLOW-UP NOTES:Bilat lower extremities and feet are edematous. Haemosiderin deposits noted to both lower ext.Dry skin with scattered Paratibial nubbins both lower ext. R lower ext noted to be more erythematous in comparison to initial assessment. Several small serous filled blisters noted. No changes in skin temp noted. Wound dorsal aspect of L foot is audra, rolled skin flap along edges(L)2.8cm x (W)2.7cm. No odor or exudate noted.Pt stated site is stave machine tender to minimal touch. No erythema or elevation in skin temp periwound. Wound medial L malleolus(L)4.2cm x (W)4.8cm. Base of wound is audra and macerated. Irregular borders that are macerated.Small amt serous exudate noted.No odor noted.Both lower ext washed and moisturized. Wounds dorsal L foot and L medial malleolus cleansed with Saline, Xeroform gauze applied to wounds,covered with ABD Pads and wrapped with Kerlix.Serous Blisters RLE covered with ABD Pads and wrapped with Kerlix. Pt is compliant with instructions to leevate legs while in bed and both lower extremities are elevated with 2 pillows in bed.
--- NOTE | 2019-12-22 14:26 | NUR ---
[employer] NOTE DR NOE GAVE TO/RB TO DC TO SNF. NOTED AND CARRIED OUT. [employer] INFORMED.
--- NOTE | 2019-12-22 14:42 | NUR ---
*-*DISCHARGE PLANNED*-* PATIENT HAS BEEN ACCEPTED AND WILL BE DISCHARGED TO: [facility] P: [phone] FOR NURSE TO NURSE REPORT ROOM# 42.B SKILLED [facility] TRANSPORTATION SET FOR 4PM S/W OTILIA [id number] S/W PATIENTS SON, TREY MITCHELL JR, WHO IS IN AGREEMENT WITH DISCHARGE.
[2019-12-22 16:00] VITALS: BP 149/75
--- NOTE | 2019-12-22 16:42 | Infectious Diseases Prog Note ---
Assessment/Plan Assessment/Plan ASSESSMENT AND PLAN: 1. mssa/e.coli left foot wound infection, left foot cellulitis, ? left foot self -drained abscess/blister, bilateral leg cellulitis, ? sepsis, elevated wbc - vancomycin and zosyn - can change to po keflex x 10 days - monitor wbc/labs - d/w primary care team - surgery and podiatry follow-up - blood cultures negative, ua-0 wbc 2. The patient has diabetes. 3. Hypertension. 4. History of DVT. 5. History of acute cholecystitis. 6. History of gout. 7. Diabetes and hypertension per primary care team. 8. Obesity. 9. Monitor creatinine closely on vancomycin. 10. Wound care per Surgery. 11. History of edema and cellulitis. 12. History of anemia. 13. History of cholecystectomy. 14. Continue treatment per primary consultants. 15. Allergy to sulfa drugs. 16. Social history negative. 17. Family history noncontributory. 18. MAR was noted. 19. Case discussed with RN. Subjective Constitutional: Denies: fever HEENT: Denies: congestion Respiratory: Denies: shortness of breath Gastrointestinal/Abdominal: Denies: nausea, vomiting, diarrhea Genitourinary: Reports: other - on eaton ; Denies: dysuria, hematuria, frequency Neurologic: Denies: headache Psychiatric: Denies: depression Skin: Denies: rash Hematologic: Denies: bleeding Musculoskeletal: Reports: pain - + leg pain Allergies: Coded Allergies: SULFA (SULFONAMIDE ANTIBIOTICS) (Unverified Allergy, Unknown, 05/02/15) allergy history per Dr. Jones Objective Last 24 Hour Vital Signs Date Time Temp Pulse Resp B/P (MAP) Pulse Ox O2 Delivery O2 Flow Rate FiO2 12/22/19 12:00 97.7 78 20 129/103 (112) 96 12/22/19 09:00 Room Air 12/22/19 08:00 97.9 91 20 115/89 (98) 97 12/22/19 04:00 97.9 82 20 111/68 (82) 95 12/22/19 00:00 97.5 91 20 132/72 (92) 96 12/21/19 21:00 Room Air 12/21/19 20:00 97.2 59 18 146/90 (108) 96 Height (Feet): 6 Height (Inches): 1.00 Weight (Pounds): 410 General Appearance: no acute distress HEENT: normocephalic, atraumatic, anicteric, mucous membranes moist Respiratory/Chest: lungs clear, normal breath sounds, no respiratory distress, no accessory muscle use Cardiovascular: normal rate, regular rhythm, no gallop/murmur, no JVD Abdomen: normal bowel sounds, soft, non tender, no organomegaly, non distended Genitourinary: other - no eaton Extremities: no cyanosis, other - + left swelling, left foot covered Skin: no rash Neurologic/Psychiatric: 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 FINDINGS: Radiograph is underpenetrated. Vascularity is normal. The lung ruiz are clear bilaterally. Cardiac and mediastinal silhouette are within normal limits. CP angles are sharp. The bony thorax appear unremarkable. IMPRESSION: NO ACUTE CARDIOPULMONARY DISEASE. Left ankle x-ray - Procedure: XRAY Ankle Compl Min 3v L EXAM: X-RAY XRAY Ankle Compl Min 3v L CLINICAL HISTORY: Ankle pain. COMPARISON: None FINDINGS: Total of 3 views of the left ankle were obtained. There are similar changes compared to the contralateral right. Narrowing of Bohler's angle with indistinctness subtalar joints noted. Definitive osteophyte noted both anteriorly and posteriorly. No definite acute fractures seen. Ankle mortise appears anatomic. There is mild generalized soft tissue swelling IMPRESSION: SOFT TISSUE SWELLING. NO DEFINITE ACUTE FRACTURE. APPARENT ARTHRITIC CHANGES OF THE SUBTALAR JOINT IS SIMILAR TO THE CONTRALATERAL RIGHT Microbiology Date/Time Source Procedure Growth Status 12/19/19 00:45 Blood Blood Culture - Preliminary NO GROWTH AFTER 72 HOURS Resulted 12/19/19 11:43 Nasopharynx SARS-CoV-2 RdRp Gene Assay - Final Complete 12/19/19 13:45 Foot Left Gram Stain - Final Resulted 12/19/19 13:45 Wound Culture - Preliminary Staphylococcus Aureus Escherichia Coli Diphtheroids Resulted Laboratory Tests Test 12/22/19 07:50 White Blood Count 18.3 K/UL (4.8-10.8) H Red Blood Count 3.90 M/UL (4.20-5.40) L Hemoglobin 9.7 G/DL (12.0-16.0) L Hematocrit 32.5 % (37.0-47.0) L Mean Corpuscular Volume 83 FL (80-99) Mean Corpuscular Hemoglobin 25.0 PG (27.0-31.0) L Mean Corpuscular Hemoglobin Concent 30.0 G/DL (32.0-36.0) L Red Cell Distribution Width 15.9 % (11.6-14.8) H Platelet Count 339 K/UL (150-450) Mean Platelet Volume 6.3 FL (6.5-10.1) L Neutrophils (%) (Auto) % (45.0-75.0) Lymphocytes (%) (Auto) % (20.0-45.0) Monocytes (%) (Auto) % (1.0-10.0) Eosinophils (%) (Auto) % (0.0-3.0) Basophils (%) (Auto) % (0.0-2.0) Differential Total Cells Counted 100 Neutrophils % (Manual) 82 % (45-75) H Lymphocytes % (Manual) 10 % (20-45) L Monocytes % (Manual) 5 % (1-10) Eosinophils % (Manual) 2 % (0-3) Basophils % (Manual) 0 % (0-2) Band Neutrophils 1 % (0-8) Platelet Estimate Adequate Platelet Morphology Normal Hypochromasia 1+ Anisocytosis 1+ Sodium Level 137 MMOL/L (136-145) Potassium Level 3.3 MMOL/L (3.5-5.1) L Chloride Level 98 MMOL/L (98-107) Carbon Dioxide Level 33 MMOL/L (21-32) H Anion Gap 7 mmol/L (5-15) Blood Urea Nitrogen 12 mg/dL (7-18) Creatinine 1.0 MG/DL (0.55-1.30) Estimat Glomerular Filtration Rate > 60 mL/min (>60) Glucose Level 119 MG/DL (74-106) H Calcium Level 9.2 MG/DL (8.5-10.1) Total Bilirubin 0.2 MG/DL (0.2-1.0) Aspartate Amino Transf (AST/SGOT) 24 U/L (15-37) Alanine Aminotransferase (ALT/SGPT) 23 U/L (12-78) Alkaline Phosphatase 71 U/L (46-116) Total Protein 7.2 G/DL (6.4-8.2) Albumin 2.5 G/DL (3.4-5.0) L Globulin 4.7 g/dL Albumin/Globulin Ratio 0.5 (1.0-2.7) L Current Medications Medications (Trade) Dose Ordered Sig/Key Route PRN Reason Start Time Stop Time Status Last Admin Dose Admin Acetaminophen (Tylenol) 650 mg Q4H PRN ORAL Mild Pain (Pain Scale 1-3) 12/19/19 01:45 01/18/20 01:44 Allopurinol (Zyloprim) 100 mg DAILY ORAL 12/19/19 09:00 01/18/20 08:59 12/22/19 09:01 Apixaban (Eliquis) 5 mg BID ORAL 12/19/19 09:00 03/18/20 08:59 12/22/19 09:02 Chlorhexidine Gluconate (Priti-Hex 2%) 1 applic DAILY@1999 TOPIC 12/22/19 20:00 03/21/20 19:59 Dextrose (Dextrose 50%) 25 ml Q30M PRN IV Hypoglycemia 12/19/19 01:45 03/18/20 01:44 Dextrose (Dextrose 50%) 50 ml Q30M PRN IV Hypoglycemia 12/19/19 01:45 03/18/20 01:44 Diphenhydramine HCl (Benadryl) 25 mg Q6H PRN IVP Itching 12/19/19 03:15 01/18/20 03:14 12/20/19 04:09 Docusate Sodium (Colace) 100 mg EVERY 12 HOURS ORAL 12/19/19 09:00 01/18/20 08:59 12/22/19 09:03 Famotidine (Pepcid) 40 mg DAILY ORAL 12/19/19 09:00 03/18/20 08:59 12/22/19 09:02 Furosemide (Lasix) 40 mg DAILY ORAL 12/19/19 09:00 01/18/20 08:59 12/22/19 09:03 Gabapentin (Neurontin) 100 mg Q12H PRN ORAL For Pain 12/20/19 16:15 01/19/20 16:14 12/20/19 17:27 Heparin Sodium/ Sodium Chloride (Heparin 1000 units/500ml Premix) 1,000 unit ONCE PRN IV PICC LINE 12/22/19 09:00 12/24/19 08:59 Hydrochlorothiazide (Hydrodiuril) 25 mg DAILY ORAL 12/19/19 09:00 01/18/20 08:59 12/22/19 09:01 Hydromorphone HCl (Dilaudid) 0.5 mg Q6H PRN IVP For Pain 12/20/19 11:00 12/26/19 10:59 12/21/19 20:31 Hydromorphone HCl (Dilaudid) 4 mg Q6HR PRN ORAL Severe Pain (Pain Scale 7-10) 12/22/19 00:45 12/29/19 00:44 12/22/19 16:03 Lidocaine HCl (Xylocaine 1% 30ml) 30 ml ONCE PRN INJ PICC LINE 12/22/19 09:00 12/24/19 08:59 Metformin HCl (Glucophage) 500 mg TWICE A DAY ORAL 12/19/19 09:00 01/18/20 08:59 12/22/19 09:03 Multivitamins (Multivitamins) 1 tab DAILY ORAL 12/19/19 09:00 01/18/20 08:59 12/22/19 09:01 Ondansetron HCl (Zofran) 4 mg Q6H PRN IVP Nausea & Vomiting 12/19/19 01:45 01/18/20 01:44 Piperacillin Sod/ Tazobactam Sod 3.375 gm/Sodium Chloride 110 ml @ 27.5 mls/hr EVERY 8 HOURS IVPB 12/19/19 06:00 12/24/19 05:59 12/21/19 21:21 Polyethylene Glycol (Miralax) 17 gm HSPRN PRN ORAL Constipation 12/19/19 01:45 01/18/20 01:44 Vancomycin HCl (Vanco pharmacy to dose) 1 ea DAILY PRN MISC Per rx protocol 12/19/19 12:00 01/18/20 11:59 Vancomycin/Sodium Chloride 275 ml @ 183.333 mls/hr Q12HR@0100,1300 IVPB 12/19/19 13:00 12/24/19 12:59 12/21/19 12:53 Slim Javed MD Dec 22, 2019 16:41
--- NOTE | 2019-12-22 17:00 | Surgery Progress Note ---
Surgery Progress Note Subjective Additional Comments podiatry input appreciated ID input noted hold picc line okay for now transition for d/c oral improving feels much better Objective Last 24 Hour Vital Signs Date Time Temp Pulse Resp B/P (MAP) Pulse Ox O2 Delivery O2 Flow Rate FiO2 12/22/19 12:00 97.7 78 20 129/103 (112) 96 12/22/19 09:00 Room Air 12/22/19 08:00 97.9 91 20 115/89 (98) 97 12/22/19 04:00 97.9 82 20 111/68 (82) 95 12/22/19 00:00 97.5 91 20 132/72 (92) 96 12/21/19 21:00 Room Air 12/21/19 20:00 97.2 59 18 146/90 (108) 96 I&O Intake and Output 12/21/19 12/22/19 19:00 07:00 Intake Total 1861.666 ml 400 ml Balance 1861.666 ml 400 ml Intake Oral 1440 ml 400 ml IV Total 421.666 ml # Voids 4 3 # Bowel Movements 1 1 Dressing: saturated Wound: clean Cardiovascular: RSR Respiratory: clear Abdomen: soft, non-tender, present bowel sounds Extremities: edema, no tenderness, no cyanosis Laboratory Tests Test 12/22/19 07:50 White Blood Count 18.3 K/UL (4.8-10.8) H Red Blood Count 3.90 M/UL (4.20-5.40) L Hemoglobin 9.7 G/DL (12.0-16.0) L Hematocrit 32.5 % (37.0-47.0) L Mean Corpuscular Volume 83 FL (80-99) Mean Corpuscular Hemoglobin 25.0 PG (27.0-31.0) L Mean Corpuscular Hemoglobin Concent 30.0 G/DL (32.0-36.0) L Red Cell Distribution Width 15.9 % (11.6-14.8) H Platelet Count 339 K/UL (150-450) Mean Platelet Volume 6.3 FL (6.5-10.1) L Neutrophils (%) (Auto) % (45.0-75.0) Lymphocytes (%) (Auto) % (20.0-45.0) Monocytes (%) (Auto) % (1.0-10.0) Eosinophils (%) (Auto) % (0.0-3.0) Basophils (%) (Auto) % (0.0-2.0) Differential Total Cells Counted 100 Neutrophils % (Manual) 82 % (45-75) H Lymphocytes % (Manual) 10 % (20-45) L Monocytes % (Manual) 5 % (1-10) Eosinophils % (Manual) 2 % (0-3) Basophils % (Manual) 0 % (0-2) Band Neutrophils 1 % (0-8) Platelet Estimate Adequate Platelet Morphology Normal Hypochromasia 1+ Anisocytosis 1+ Sodium Level 137 MMOL/L (136-145) Potassium Level 3.3 MMOL/L (3.5-5.1) L Chloride Level 98 MMOL/L (98-107) Carbon Dioxide Level 33 MMOL/L (21-32) H Anion Gap 7 mmol/L (5-15) Blood Urea Nitrogen 12 mg/dL (7-18) Creatinine 1.0 MG/DL (0.55-1.30) Estimat Glomerular Filtration Rate > 60 mL/min (>60) Glucose Level 119 MG/DL (74-106) H Calcium Level 9.2 MG/DL (8.5-10.1) Total Bilirubin 0.2 MG/DL (0.2-1.0) Aspartate Amino Transf (AST/SGOT) 24 U/L (15-37) Alanine Aminotransferase (ALT/SGPT) 23 U/L (12-78) Alkaline Phosphatase 71 U/L (46-116) Total Protein 7.2 G/DL (6.4-8.2) Albumin 2.5 G/DL (3.4-5.0) L Globulin 4.7 g/dL Albumin/Globulin Ratio 0.5 (1.0-2.7) L Plan Problems: (1) History of DVT (deep vein thrombosis) (2) Venous stasis ulcer of left ankle Assessment & Plan: chronic outpatient care with podiatry local wound care being provided (3) Morbid obesity (4) Allergic reaction (5) Left leg cellulitis Assessment & Plan: acute worsening left ankle leg cellulitis states blister now popped serous drainage tender warm edema plain films noted dressings changed keep bilateral lower extremities elevated while in bed xerofoam to left foot and ankle, cover with abd and wrap Podiatry eval abx as per ID okay to ambulate diet as tolerated will follow with recs thank you There are similar changes compared to the contralateral right. Narrowing of Bohler's angle with indistinctness subtalar joints noted. Definitive osteophyte noted both anteriorly and posteriorly. No definite acute fractures seen. Ankle mortise appears anatomic. There is mild generalized soft tissue swelling IMPRESSION: SOFT TISSUE SWELLING. NO DEFINITE ACUTE FRACTURE. APPARENT ARTHRITIC CHANGES OF THE SUBTALAR JOINT IS SIMILAR TO THE CONTRALATERAL RIGHT Patient has poor peripheral access IV line is infiltrated she cannot obtain her antibiotics or pain medication at this time. Using ultrasound guidance a left external jugular vein was identified and a 22- gauge catheter was placed under ultrasound guidance in the left external jugular. Good venous flow identified. Line viable. 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 (14) Acute blood loss anemia (15) Thrush (16) Gout (17) Morbid obesity (18) Anemia (19) Back pain (20) Cough (21) Diarrhea (22) SOB (shortness of breath) (23) Flank pain (24) Leukocytosis (25) Leukocytosis (26) Post-menopausal bleeding (27) Vaginal bleeding (28) Hypoalbuminemia (29) Rectal bleeding (30) Venous stasis (31) Hypertension (32) Pneumonitis (33) Obesity (34) HTN (hypertension) (35) Chronic pain (36) Muscle ache (37) Cellulitis, leg (38) Cellulitis, leg (39) Clostridium difficile colitis (40) ACS (acute coronary syndrome) (41) Diabetes type 2, controlled (42) Factor V Leiden (43) Shoulder pain, right (44) Cellulitis of right leg (45) Cellulitis of right leg (46) Chronic wound of extremity (47) Flank pain, acute (48) Injury of lower extremity (49) Left leg cellulitis (50) Bilateral cellulitis of lower leg (51) Bilateral lower leg cellulitis (52) Poor intravenous access (53) DVT, recurrent, lower extremity, acute and chronic (54) Deep vein thrombosis (DVT) of left lower extremity (55) Acute DVT of LLE (56) Cellulitis (57) lives on own at home (58) lateral posterior left leg superficial skin breakdown ulcer (59) abdominal wall swelling (60) leg pain (61) probable abscess Chuy Damian Dec 22, 2019 17:00
--- NOTE | 2019-12-22 17:30 | NUR ---
NURSE NOTES: Patient is discharged to [facility] without any signs of distress. Patient is alert and awake. A&O x 4. Respiration is even and unlabored on room air. complain of left foot pain, rates her pain level to be 8/10; dilaudid 4 mg given po as ordered, tolerated well. patient signs inventory form. pt has wound on left foot dorsal side; covered site with clean dry dressing, pictures taken. Report given to....... at [facility] via phone. provided discharge teaching about wound care, infection control and elevating BLE on a pillow at all time aubrey help reduce edema; pt verbalized understanding. IV site and wrist band removed. Patient is placed in a gurney, transported via [facility] accompanied by 2 [employer]. Addendum: 12/22/19 at 1733 by Omar Hernandez RN Patient is discharged to [facility] without any signs of distress. Patient is alert and awake. A&O x 4. Respiration is even and unlabored on room air. complain of left foot pain, rates her pain level to be 8/10; dilaudid 4 mg given po as ordered, tolerated well. patient signs inventory form. pt has wound on left foot dorsal side; covered site with clean dry dressing, pictures taken. Report given to Oyi at [facility] via phone. provided discharge teaching about wound care, infection control and elevating BLE on a pillow to help reduce edema; pt verbalized understanding. IV site and wrist band removed. 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
--- NOTE | 2019-12-22 18:43 | Neurology Progress Note ---
Interim History Interim History Interim History tolerating gabapentin Objective Physical Exam Last Vital Signs Date Time Temp Pulse Resp B/P (MAP) Pulse Ox O2 Delivery O2 Flow Rate FiO2 12/22/19 16:00 98.1 88 20 149/75 (99) 99 12/22/19 09:00 Room Air Laboratory Tests Test 12/22/19 07:50 White Blood Count 18.3 K/UL (4.8-10.8) H Red Blood Count 3.90 M/UL (4.20-5.40) L Hemoglobin 9.7 G/DL (12.0-16.0) L Hematocrit 32.5 % (37.0-47.0) L Mean Corpuscular Volume 83 FL (80-99) Mean Corpuscular Hemoglobin 25.0 PG (27.0-31.0) L Mean Corpuscular Hemoglobin Concent 30.0 G/DL (32.0-36.0) L Red Cell Distribution Width 15.9 % (11.6-14.8) H Platelet Count 339 K/UL (150-450) Mean Platelet Volume 6.3 FL (6.5-10.1) L Neutrophils (%) (Auto) % (45.0-75.0) Lymphocytes (%) (Auto) % (20.0-45.0) Monocytes (%) (Auto) % (1.0-10.0) Eosinophils (%) (Auto) % (0.0-3.0) Basophils (%) (Auto) % (0.0-2.0) Differential Total Cells Counted 100 Neutrophils % (Manual) 82 % (45-75) H Lymphocytes % (Manual) 10 % (20-45) L Monocytes % (Manual) 5 % (1-10) Eosinophils % (Manual) 2 % (0-3) Basophils % (Manual) 0 % (0-2) Band Neutrophils 1 % (0-8) Platelet Estimate Adequate Platelet Morphology Normal Hypochromasia 1+ Anisocytosis 1+ Sodium Level 137 MMOL/L (136-145) Potassium Level 3.3 MMOL/L (3.5-5.1) L Chloride Level 98 MMOL/L (98-107) Carbon Dioxide Level 33 MMOL/L (21-32) H Anion Gap 7 mmol/L (5-15) Blood Urea Nitrogen 12 mg/dL (7-18) Creatinine 1.0 MG/DL (0.55-1.30) Estimat Glomerular Filtration Rate > 60 mL/min (>60) Glucose Level 119 MG/DL (74-106) H Calcium Level 9.2 MG/DL (8.5-10.1) Total Bilirubin 0.2 MG/DL (0.2-1.0) Aspartate Amino Transf (AST/SGOT) 24 U/L (15-37) Alanine Aminotransferase (ALT/SGPT) 23 U/L (12-78) Alkaline Phosphatase 71 U/L (46-116) Total Protein 7.2 G/DL (6.4-8.2) Albumin 2.5 G/DL (3.4-5.0) L Globulin 4.7 g/dL Albumin/Globulin Ratio 0.5 (1.0-2.7) L Impression/Recommendations Problems: (1) History of DVT (deep vein thrombosis) (2) Venous stasis ulcer of left ankle (3) Morbid obesity (4) Allergic reaction (5) Left leg cellulitis (6) Sepsis (7) Factor 5 Leiden mutation, heterozygous (8) DVT, bilateral lower limbs (9) Acute cholecystitis (10) Acute cholecystitis (11) Hypokalemia (12) Hypokalemia (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 (14) Acute blood loss anemia (15) Thrush (16) Gout (17) Morbid obesity (18) Anemia (19) Back pain (20) Cough (21) Diarrhea (22) SOB (shortness of breath) (23) Flank pain (24) Leukocytosis (25) Leukocytosis (26) Post-menopausal bleeding (27) Vaginal bleeding (28) Hypoalbuminemia (29) Rectal bleeding (30) Venous stasis (31) Hypertension (32) Pneumonitis (33) Obesity (34) HTN (hypertension) (35) Chronic pain (36) Muscle ache (37) Cellulitis, leg (38) Cellulitis, leg (39) Clostridium difficile colitis (40) ACS (acute coronary syndrome) (41) Diabetes type 2, controlled (42) Factor V Leiden (43) Shoulder pain, right (44) Cellulitis of right leg (45) Cellulitis of right leg (46) Chronic wound of extremity (47) Flank pain, acute (48) Injury of lower extremity (49) Left leg cellulitis (50) Bilateral cellulitis of lower leg (51) Bilateral lower leg cellulitis (52) Poor intravenous access (53) DVT, recurrent, lower extremity, acute and chronic (54) Deep vein thrombosis (DVT) of left lower extremity (55) Acute DVT of LLE (56) Cellulitis (57) lives on own at home (58) lateral posterior left leg superficial skin breakdown ulcer (59) abdominal wall swelling (60) leg pain (61) probable abscess Status: stable Diagnostic Impression Diabetic polyneuropathy, Add gabapentin 100 mg bid cont anticoagulation COnt PT OT COnt Atb Prosper Murray MD Dec 22, 2019 18:43
[2019-12-22] MEDS ORDERED: Dyna-Hex 2% Top Sol 2oz TOPIC SCH (20:00)
== END 2019-12-22 17:48 | DRG 872 ==
LOC: EMR 19:50 → 4E 20:52 → EDBEDREQ 12-19 00:06
DX: A41.9 Sepsis, unspecified organism (principal); I82.403 Acute embolism and thrombosis of unspecified deep veins of lower extremity, bilateral; Z68.43 Body mass index [BMI] 50.0-59.9, adult; L97.329 Non-pressure chronic ulcer of left ankle with unspecified severity; L02.612 Cutaneous abscess of left foot; D68.2 Hereditary deficiency of other clotting factors; L03.116 Cellulitis of left lower limb; K81.0 Acute cholecystitis; D62 Acute posthemorrhagic anemia; B37.0 Candidal stomatitis; I83.023 Varicose veins of left lower extremity with ulcer of ankle; E66.01 Morbid (severe) obesity due to excess calories; B96.20 Unspecified Escherichia coli [E. coli] as the cause of diseases classified elsewhere; A49.01 Methicillin susceptible Staphylococcus aureus infection, unspecified site; E11.40 Type 2 diabetes mellitus with diabetic neuropathy, unspecified; Z88.2 Allergy status to sulfonamides; E11.9 Type 2 diabetes mellitus without complications; Z79.01 Long term (current) use of anticoagulants; Z99.3 Dependence on wheelchair; Z79.84 Long term (current) use of oral hypoglycemic drugs; F28 Other psychotic disorder not due to a substance or known physiological condition; M10.9 Gout, unspecified; M54.9 Dorsalgia, unspecified
CPT/HCPCS: 36415; 71045; 80048; 80053; 80202; 81003; 82550; 83605; 83690; 83735; 83880; 84484; 85007; 85025; 85610; 85651; 85730; 86140; 87040; 87070; 87181; 87205; 93005; 96361; 96365; 96368; 96372; 96375; 99285; J7030; U0002

== ENCOUNTER 2020-02-27 20:54 | Inpatient (IN) | payer MEDICARE, OTHER ==
[~2020-02-27] VITALS: Ht 175.3 cm; Wt 198.8 kg
[~2020-02-27 20:54] MED LIST changes: +ALLOPURINOL100 M1 ORAL; +CEPHALEXIN500 MG ORAL; +GABAPENTIN100 MG ORAL
[2020-02-27 21:00] VITALS: BP 134/76
--- NOTE | 2020-02-27 21:28 | Emergency Room Report ---
History of Present Illness General Chief Complaint: Abnormal Labs Source: Patient, Medical Record Present Illness HPI Increasing WBC. Tickle in chest. Patient denies cough or shortness of breath. The patient denies fevers or chills. She states she was recently stopped from her diuretic because she believes that this was associated with her elevated white count. She rates the pain in her legs anywhere from 6-9 depending on if she is moving about. She denies radiation of the pain. She denies pleuritic chest pain or hemoptysis. She does have a history of DVT in the past. No nausea, vomiting diarrhea. She does have some polyuria when taking a water pill. She has some generalized weakness. She denies depression. Last tested for COVID 02/22. The patient has a very complex past medical history on [facility] for Leiden factor positivity. The patient states she had an "abscess" in her foot several months ago. This is on the left-hand side. She has not noticed anything like that recently. She was admitted in December with these admitting diagnoses: #Sepsis , present on admit #Left foot ulcer s/p biol rupture #B/L lower extremity cellulitis #Leukocytosis #Lowe extremity DVT #Factor V Leiden #NID Diabetes mellitus Allergies: Coded Allergies: SULFA (SULFONAMIDE ANTIBIOTICS) (Unverified Allergy, Unknown, 05/02/15) allergy history per Dr. Jones COVID-19 Screening Contact w/high risk pt: No Recent Travel to affected area: No Experienced COVID-19 symptoms?: No COVID-19 Testing performed [employer]: Yes - february 22 COVID-19 Screening: Negative COVID-19 COVID-19 Testing Source: [facility] Patient History Social History: Denies: smoking, alcohol use, drug use Social History Narrative In a intermediate facility Last Menstrual Period: n/a Reviewed Nursing Documentation: PMH: Agreed; PSxH: Agreed Nursing Documentation-PMH Past Medical History: No History, Except For Hx Cardiac Problems: Yes - DVT Hx Hypertension: Yes Hx Asthma: Yes Hx Diabetes: Yes Hx Cancer: No Hx Gastrointestinal Problems: Yes - GI bleeding Hx Neurological Problems: No Hx Cerebrovascular Accident: No - CELLULITIS LOWER ABD AND BI-LAT LEGS Review of Systems All Other Systems: negative except mentioned in HPI Physical Exam Vital Signs Date Time Temp Pulse Resp B/P (MAP) Pulse Ox O2 Delivery O2 Flow Rate FiO2 02/27/20 20:55 98.1 72 16 134/76 (95) 98 Room Air Sp02 EP Interpretation: reviewed, normal General Appearance: well appearing, no apparent distress, alert, GCS 15, obese Head: normocephalic Eyes: bilateral eye normal inspection, bilateral eye PERRL, bilateral eye EOMI ENT: moist mucus membranes Neck: supple Respiratory: lungs clear, normal breath sounds Cardiovascular #1: regular rate, rhythm, edema - Lateral 1-2+ worse on the left Cardiovascular #2: 2+ radial (R), 2+ dorsalis pedis (R), 2+ dorsalis pedis (L) Gastrointestinal: normal inspection, normal bowel sounds, non tender, no mass, overweight Genitourinary: no CVA tenderness Musculoskeletal: back normal, inflammation, calf tenderness - Left greater than right, tender, swelling Neurologic: alert, oriented x3, grossly normal Psychiatric: mood/affect normal Skin: warm/dry, other - Erythema bilateral lower extremities no evidence of any abscess Medical Decision Making Diagnostic Impression: Primary Impression: Cellulitis Qualified Codes: L03.116 - Cellulitis of left lower limb Additional Impressions: BMI 60.0-69.9, adult Hypokalemia Elevated lactic acid level COVID-19 ruled out by laboratory testing ER Course Patient sent for increasing white count. She complains about leg pain. Differential includes cellulitis, sepsis, DVT, pneumonia, COVID-19 amongst others. Patient evaluated with EKG, chest x-ray and labs. Venous duplex ordered. Because of total body sodium excess no aggressive IV hydration indicated as also there is no evidence of sepsis at the moment. Multiple comorbidities make this patient very complex. Patient placed on cardiac nurse specialist. However clinically the patient has cellulitis and antibiotics begun. EKG without injury. Chest x-ray no infiltrates. White count elevated. COVID- 19 negative. CMP with low potassium. Noninvasive vascular study negative for DVT. Potassium administered. Patient treated with Dilaudid. Elevated lactic acid discovered reviewing labs. Fluid boluses administered however as this is minimally elevated only a liter is given. This is not based on the patient's weight. Also continued IV hydration ordered. Discussed with Dr. Julio for [employer] Holding orders entered. Patient improved however requires IV antibiotics and further evaluation. Laboratory Tests Test 02/27/20 22:30 02/28/20 00:30 White Blood Count 12.7 K/UL (4.8-10.8) H Red Blood Count 4.19 M/UL (4.20-5.40) L Hemoglobin 10.3 G/DL (12.0-16.0) L Hematocrit 34.0 % (37.0-47.0) L Mean Corpuscular Volume 81 FL (80-99) Mean Corpuscular Hemoglobin 24.6 PG (27.0-31.0) L Mean Corpuscular Hemoglobin Concent 30.4 G/DL (32.0-36.0) L Red Cell Distribution Width 16.2 % (11.6-14.8) H Platelet Count 275 K/UL (150-450) Mean Platelet Volume 6.5 FL (6.5-10.1) Neutrophils (%) (Auto) 75.9 % (45.0-75.0) H Lymphocytes (%) (Auto) 16.3 % (20.0-45.0) L Monocytes (%) (Auto) 5.5 % (1.0-10.0) Eosinophils (%) (Auto) 1.5 % (0.0-3.0) Basophils (%) (Auto) 0.7 % (0.0-2.0) Prothrombin Time 10.7 SEC (9.30-11.50) Prothrombin Time INR 1.0 (0.9-1.1) Activated Partial Thromboplast Time 26 SEC (23-33) Sodium Level 140 MMOL/L (136-145) Potassium Level 3.2 MMOL/L (3.5-5.1) L Chloride Level 100 MMOL/L (98-107) Carbon Dioxide Level 33 MMOL/L (21-32) H Anion Gap 7 mmol/L (5-15) Blood Urea Nitrogen 15 mg/dL (7-18) Creatinine 1.1 MG/DL (0.55-1.30) Estimated Glomerular Filtration Rate > 60 mL/min (>60) Glucose Level 115 MG/DL (74-106) H Lactic Acid Level 2.40 mmol/L (0.4-2.0) H 2.00 mmol/L (0.66-2.22) Calcium Level 8.9 MG/DL (8.5-10.1) Magnesium Level 1.8 MG/DL (1.8-2.4) Ferritin 15 NG/ML (8-388) Total Bilirubin 0.2 MG/DL (0.2-1.0) Aspartate Amino Transferase (AST) 16 U/L (15-37) Alanine Aminotransferase (ALT) 15 U/L (12-78) Alkaline Phosphatase 95 U/L (46-116) Lactate Dehydrogenase 170 U/L (81-234) Total Creatine Kinase 191 U/L (26-308) Creatine Kinase MB 1.6 NG/ML (0.0-3.6) Creatine Kinase MB Relative Index 0.8 Troponin I 0.000 ng/mL (0.000-0.056) C-Reactive Protein, Quantitative 3.6 mg/dL (0.00-0.90) H Pro-B-Type Natriuretic Peptide 50 pg/mL (0-125) Total Protein 7.3 G/DL (6.4-8.2) Albumin 3.0 G/DL (3.4-5.0) L Globulin 4.3 g/dL Albumin/Globulin Ratio 0.7 (1.0-2.7) L Lipase 202 U/L (73-393) Microbiology Date/Time Source Procedure Growth Status 02/27/20 22:30 Nasopharynx SARS-CoV-2 RdRp Gene Assay - Final Complete EKG Diagnostic Results Rate: normal Rhythm: NSR ST Segments: no acute changes - Prolonged QT 491 ms Rhythm Strip Diag. Results EP Interpretation: yes Rhythm: NSR, no PVC's, no ectopy Chest X-Ray Diagnostic Results Chest X-Ray Diagnostic Results : Chest X-Ray Ordered: Yes # of Views/Limited/Complete: 1 View Indication: Other EP Interpretation: Yes Interpretation: no consolidation, no effusion, no pneumothorax Impression: No acute disease Electronically Signed by: Electronically signed by Flako Nunes MD CT/MRI/US Diagnostic Results CT/MRI/US Diagnostic Results : Imaging Test Ordered: Venous duplex Impression No DVT Laboratory Tests Test 02/27/20 22:30 02/28/20 00:30 White Blood Count 12.7 K/UL (4.8-10.8) H Red Blood Count 4.19 M/UL (4.20-5.40) L Hemoglobin 10.3 G/DL (12.0-16.0) L Hematocrit 34.0 % (37.0-47.0) L Mean Corpuscular Volume 81 FL (80-99) Mean Corpuscular Hemoglobin 24.6 PG (27.0-31.0) L Mean Corpuscular Hemoglobin Concent 30.4 G/DL (32.0-36.0) L Red Cell Distribution Width 16.2 % (11.6-14.8) H Platelet Count 275 K/UL (150-450) Mean Platelet Volume 6.5 FL (6.5-10.1) Neutrophils (%) (Auto) 75.9 % (45.0-75.0) H Lymphocytes (%) (Auto) 16.3 % (20.0-45.0) L Monocytes (%) (Auto) 5.5 % (1.0-10.0) Eosinophils (%) (Auto) 1.5 % (0.0-3.0) Basophils (%) (Auto) 0.7 % (0.0-2.0) Prothrombin Time 10.7 SEC (9.30-11.50) Prothrombin Time INR 1.0 (0.9-1.1) Activated Partial Thromboplast Time 26 SEC (23-33) Sodium Level 140 MMOL/L (136-145) Potassium Level 3.2 MMOL/L (3.5-5.1) L Chloride Level 100 MMOL/L (98-107) Carbon Dioxide Level 33 MMOL/L (21-32) H Anion Gap 7 mmol/L (5-15) Blood Urea Nitrogen 15 mg/dL (7-18) Creatinine 1.1 MG/DL (0.55-1.30) Estimated Glomerular Filtration Rate > 60 mL/min (>60) Glucose Level 115 MG/DL (74-106) H Lactic Acid Level 2.40 mmol/L (0.4-2.0) H 2.00 mmol/L (0.66-2.22) Calcium Level 8.9 MG/DL (8.5-10.1) Magnesium Level 1.8 MG/DL (1.8-2.4) Ferritin 15 NG/ML (8-388) Total Bilirubin 0.2 MG/DL (0.2-1.0) Aspartate Amino Transferase (AST) 16 U/L (15-37) Alanine Aminotransferase (ALT) 15 U/L (12-78) Alkaline Phosphatase 95 U/L (46-116) Lactate Dehydrogenase 170 U/L (81-234) Total Creatine Kinase 191 U/L (26-308) Creatine Kinase MB 1.6 NG/ML (0.0-3.6) Creatine Kinase MB Relative Index 0.8 Troponin I 0.000 ng/mL (0.000-0.056) C-Reactive Protein, Quantitative 3.6 mg/dL (0.00-0.90) H Pro-B-Type Natriuretic Peptide 50 pg/mL (0-125) Total Protein 7.3 G/DL (6.4-8.2) Albumin 3.0 G/DL (3.4-5.0) L Globulin 4.3 g/dL Albumin/Globulin Ratio 0.7 (1.0-2.7) L Lipase 202 U/L (73-393) Microbiology Date/Time Source Procedure Growth Status 02/27/20 22:30 Nasopharynx SARS-CoV-2 RdRp Gene Assay - Final Complete Status: improved Disposition: ADMITTED INPATIENT Condition: Serious Flako Nunes MD Feb 27, 2020 21:28
[2020-02-27] MEDS ORDERED: cefTRIAXone 1 GM in NS 55 ML IV ONE (21:30)
[2020-02-27] MEDS ORDERED: Vancomycin 1.5gm/NS Premix 275 ML IVPB ONE (21:30)
--- NOTE | 2020-02-27 21:58 | Diagnostic Imaging Report ---
EXAM: XR Chest, 1 View CLINICAL HISTORY: DYSPNEA TECHNIQUE: Frontal view of the chest. COMPARISON: None FINDINGS: Lungs: Unremarkable. No consolidation. Pleural space: Unremarkable. No pneumothorax. Heart: Unremarkable. No cardiomegaly. Mediastinum: Unremarkable. Bones/joints: Unremarkable. IMPRESSION: No acute cardiopulmonary process.
--- NOTE | 2020-02-27 22:45 | Diagnostic Imaging Report ---
EXAM: US Duplex Bilateral Lower Extremities Veins CLINICAL HISTORY: DVT TECHNIQUE: Real-time duplex ultrasound scan of the bilateral lower extremity veins integrating B-mode two-dimensional vascular structure, Doppler spectral analysis, color flow Doppler imaging and compression. COMPARISON: No relevant prior studies available. FINDINGS: Right deep veins: Unremarkable. No DVT in the right common femoral, femoral, proximal deep femoral or popliteal veins. The veins demonstrate normal color flow, are normally compressible, with normal phasic flow and/or augmentation response. Right superficial veins: Unremarkable. No thrombus in the visualized right great saphenous vein. Left deep veins: Unremarkable. No DVT in the left common femoral, femoral, proximal deep femoral or popliteal veins. The veins demonstrate normal color flow, are normally compressible, with normal phasic flow and/or augmentation response. Left superficial veins: Unremarkable. No thrombus in the visualized left great saphenous vein. Soft tissues: Subcutaneous edema. No popliteal cyst. IMPRESSION: 1. No DVT. 2. Subcutaneous edema.
[2020-02-27 23:00] VITALS: BP 129/67
[2020-02-27 23:03] LABS: BASOPHILS % (AUTO) 0.7 % (0.0-2.0); EOSINOPHILS % (AUTO) 1.5 % (0.0-3.0); HEMOGLOBIN 10.3 G/DL (12.0-16.0); LYMPHOCYTES % (AUTO) 16.3 % (20.0-45.0); MEAN CORPUSCULAR VOLUME 81 FL (80-99); MONOCYTES % (AUTO) 5.5 % (1.0-10.0); NEUTROPHILS % (AUTO) 75.9 % (45.0-75.0); PLATELET COUNT 275 K/UL (150-450); RED BLOOD COUNT 4.19 M/UL (4.20-5.40); RED CELL DISTRIBUTION WIDTH 16.2 % (11.6-14.8); WHITE BLOOD COUNT 12.7 K/UL (4.8-10.8)
[2020-02-27] MEDS ORDERED: HYDROmorphone 1mg/ml Carpuject IVP ONE (23:15)
[2020-02-27 23:20] LABS: ANION GAP 7 mmol/L (5-15); BLOOD UREA NITROGEN 15 mg/dL (7-18); CALCIUM 8.9 MG/DL (8.5-10.1); CARBON DIOXIDE 33 MMOL/L (21-32); CHLORIDE 100 MMOL/L (98-107); CREATININE 1.1 MG/DL (0.55-1.30); POTASSIUM 3.2 MMOL/L (3.5-5.1); SODIUM 140 MMOL/L (136-145)
[2020-02-27 23:39] LABS: ALANINE AMINOTRANSFERASE 15 U/L (12-78); ALBUMIN/GLOBULIN RATIO 0.7 (1.0-2.7); ALKALINE PHOSPHATASE 95 U/L (46-116); ASPARTATE AMINO TRANSFERASE 16 U/L (15-37); BILIRUBIN,TOTAL 0.2 MG/DL (0.2-1.0); CKMB 1.6 NG/ML (0.0-3.6); CREATINE KINASE 191 U/L (26-308); FERRITIN 15 NG/ML (8-388); LACTATE DEHYDROGENASE 170 U/L (81-234)
[2020-02-27] MEDS ORDERED: HYDROmorphone 1mg/ml Carpuject SUBQ PRN (23:45)
[2020-02-28] VITALS (7 sets, daily range): BP systolic 123–161; BP diastolic 69–88
[2020-02-28] MEDS ORDERED: SAXENDA3 MG/0.5 M SQ (01:47)
[2020-02-28] MEDS ORDERED: oxyCODONE 5mg IR tab ORAL PRN ×2 (03:30)
[2020-02-28] MEDS: NovoLOG Insulin Flexpen SUBQ SCH ×4 (06:30→20:49)
[2020-02-28 07:17] LABS: APPEARANCE,URINE CLEAR; BILIRUBIN, URINE NEGATIVE (NEGATIVE); COLOR,URINE PALE YELLOW; GLUCOSE, URINE (UA) NEGATIVE (NEGATIVE); KETONES,URINE NEGATIVE (NEGATIVE); LEUKOCYTE ESTERASE ,URINE NEGATIVE (NEGATIVE); NITRITE,URINE NEGATIVE (NEGATIVE); PH,URINE 5 (4.5-8.0); PROTEIN,URINE NEGATIVE (NEGATIVE); UROBILINOGEN,URINE NORMAL MG/DL (0.0-1.0)
[2020-02-28] MEDS: metFORMIN 500mg tab ORAL SCH ×2 (08:07→17:39)
[2020-02-28] MEDS: hydroCHLOROthiazide 25mg cap ORAL SCH (08:07)
[2020-02-28] MEDS: Docusate 100mg cap ORAL SCH ×2 (08:07→17:39)
[2020-02-28] MEDS: Allopurinol 100mg Tab ORAL SCH (08:08)
[2020-02-28] MEDS: Eliquis 5mg tablet ORAL SCH ×2 (08:08→17:39)
--- NOTE | 2020-02-28 09:22 | History and Physical ---
History of Present Illness General Date patient seen: Feb 28, 2020 Reason for Hospitalization: Abnormal Labs Present Illness HPI Patient is a 59 year old severely obese female with factor V Leiden mutation and many other medical problems who was sent to the ED from rehab center of [facility] for persistent leukocytosis, latest 15K. Patient was afebrile and had stable vital signs. Blood cultures were negative. Latest abdominal Xray unrevealing and was also evaluated by DISTRICT SUPERVISOR before admission. Patient denies any cough or shortness of breath. Patient says she has a DVT and taking Eliquis. She says her diuretics were recently stopped due to ?elevated white count. she has chronic bilateral Le swelling and pain. Denies chest pain or hemoptysis. Denies nausea, vomiting or diarrhea. Most recently she was hospitalized in December 2019 for left foot ulcer, osteomyelitis and sepsis. Past medical and surgical history: sepsis, Left foot ulcer s/p biol rupture, B/L lower extremity cellulitis , DVT, Factor V Leiden, NID Diabetes mellitus, Class III obesity Social history: Resides in [facility], denies etoh, tobacco or illicit drugs Family history: No known medical problems in mom and dad in the ED: her vitals: 123/71, 87, 96.8, 95% RA labs wbc 12.5, K: 3, duplex LE: negative for DVT, CXR negative for active disease Allergies: Coded Allergies: SULFA (SULFONAMIDE ANTIBIOTICS) (Unverified Allergy, Unknown, 05/02/15) allergy history per Dr. Jones COVID-19 Screening Contact w/high risk pt: No Recent Travel to affected area: No Experienced COVID-19 symptoms?: No Medication History Scheduled Allopurinol* (Allopurinol*), 100 MG ORAL DAILY, (Reported) Amino Acids/Protein Hydrolys (Pro-Stat Liquid), 30 ML ORAL DAILY, (Reported) Apixaban (Eliquis*), 5 MG PO BID, (Reported) Docusate Sodium* (Colace*), 100 MG ORAL TWICE A DAY, (Reported) Febuxostat (Uloric), 40 MG ORAL DAILY, (Reported) Furosemide* (Lasix*), 40 MG ORAL DAILY Hydrochlorothiazide* (Hydrochlorothiazide*), 50 MG ORAL DAILY, (Reported) Liraglutide (Saxenda), 3 MG SQ DAILY, (Reported) Magnesium Oxide (Magnesium Oxide), 400 MG ORAL DAILY, (Reported) Metformin Hcl* (Metformin Hcl*), 500 MG ORAL TWICE A DAY, (Reported) Multivitamin (Daily Mario), 1 TAB ORAL DAILY, (Reported) Potassium Chloride* (K-Dur*), 20 MEQ ORAL DAILY, (Reported) Scheduled PRN Gabapentin* (Gabapentin*), 100 MG ORAL Q12H PRN Hydrocodone Bit/Acetaminophen 7.5-300 Mg Tabl (Vicodin Es 7.5-300 Mg Tablet), 1 TAB ORAL Q4H PRN for For Pain, (Reported) Miscellaneous Medications Ergocalciferol (Vitamin D2) (Vitamin D2), 1.25 MG PO, (Reported) Vancomycin Hcl/D5w (Vancomycin-D5w 500 Mg/100 Ml), 2 GM IV, (Reported) Discontinued Medications Cephalexin* (Keflex*), 500 MG ORAL EVERY 6 HOURS Discontinued Reason: Therapy completed Hydrochlorothiazide* (Hydrochlorothiazide*), 25 MG ORAL DAILY, (Reported) Discontinued Reason: Prescription changed Patient History Healthcare decision maker Resuscitation status Advanced Directive on File Family History Family History: Patient reports no known family medical history. Review of Systems Constitutional: Denies: no symptoms, see HPI, chills, sweats, fever, malaise, weakness, other Eye: Denies: no symptoms, see HPI, eye pain, blurred vision, tearing, double vision, nose pain, nose congestion, acuity changes, discharge, other ENT: Denies: no symptoms, see HPI, ear pain, ear discharge, nose pain, nose congestion, throat pain, throat swelling, mouth pain, hearing loss, nasal discharge, other Respiratory: Denies: no symptoms, see HPI, cough, orthopnea, shortness of breath, stridor, wheezing, ARTEAGA, sputum, other Cardiovascular: Reports: edema - BL LE edema, not wors dominick baseline Gastrointestinal: Denies: no symptoms, see HPI, abdominal pain, constipation, diarrhea, nausea, vomiting, melena, hematemesis, other Genitourinary: Denies: no symptoms, see HPI, discharge, dysuria, frequency, hematuria, pain, retention, incontinence, urgency, vag bleed/dc, other Musculoskeletal: Denies: no symptoms, see HPI, back pain, gout, joint pain, joint swelling, muscle pain, muscle stiffness, other Skin: Denies: no symptoms, see HPI, rash, change in color, change in hair/nails, dryness, lesions, other Psychiatric: Denies: no symptoms, see HPI, prior hx, anxiety, depressed feelings, emotional problems, SI, HI, hallucinations, other Neurological: Denies: no symptoms, see HPI, headache, numbness, paresthesia, seizure, tingling, tremors, focal weakness, syncope, dizziness, other Hematologic/Lymphatic: Denies: no symptoms, see HPI, anemia, blood clots, easy bleeding, easy bruising, swollen glands, diathesis, other Physical Exam General Appearance: WD/WN, no apparent distress, alert, morbidly obese Lines, tubes and drains: peripheral HEENT: normocephalic, atraumatic, anicteric, mucous membranes moist, PERRL, EOMI Neck: non-tender, normal alignment, supple Respiratory/Chest: chest wall non-tender, lungs clear, normal breath sounds, no respiratory distress, no accessory muscle use Cardiovascular/Chest: normal peripheral pulses, normal rate, regular rhythm Abdomen: normal bowel sounds, non tender, soft, other - obese Extremities: moderate edema Skin Exam: other - chronic bl LE venous stasis dermatitis up to mid nguyen Neurologic: outside collector II-XII grossly normal, 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 Musculoskeletal: normal muscle bulk Last 24 Hour Vital Signs Date Time Temp Pulse Resp B/P (MAP) Pulse Ox O2 Delivery O2 Flow Rate FiO2 02/28/20 08:00 97.7 90 18 131/88 (102) 95 02/28/20 04:17 98.6 02/28/20 04:00 98.6 85 20 125/75 (92) 96 02/28/20 01:12 Room Air 02/28/20 01:10 96.8 87 20 123/71 (88) 95 02/28/20 00:45 98.1 80 18 132/72 96 Room Air 02/27/20 23:43 98.1 02/27/20 23:00 98.1 82 16 129/67 94 Room Air 02/27/20 21:00 98.1 86 16 134/76 98 Room Air 02/27/20 20:55 98.1 72 16 134/76 (95) 98 Room Air Intake and Output 02/27/20 02/28/20 19:00 07:00 Intake Total 360 ml Balance 360 ml Intake Oral 360 ml # Voids 1 Laboratory Tests Test 02/27/20 22:30 02/28/20 00:30 02/28/20 07:00 White Blood Count 12.7 K/UL (4.8-10.8) H Red Blood Count 4.19 M/UL (4.20-5.40) L Hemoglobin 10.3 G/DL (12.0-16.0) L Hematocrit 34.0 % (37.0-47.0) L Mean Corpuscular Volume 81 FL (80-99) Mean Corpuscular Hemoglobin 24.6 PG (27.0-31.0) L Mean Corpuscular Hemoglobin Concent 30.4 G/DL (32.0-36.0) L Red Cell Distribution Width 16.2 % (11.6-14.8) H Platelet Count 275 K/UL (150-450) Mean Platelet Volume 6.5 FL (6.5-10.1) Neutrophils (%) (Auto) 75.9 % (45.0-75.0) H Lymphocytes (%) (Auto) 16.3 % (20.0-45.0) L Monocytes (%) (Auto) 5.5 % (1.0-10.0) Eosinophils (%) (Auto) 1.5 % (0.0-3.0) Basophils (%) (Auto) 0.7 % (0.0-2.0) Prothrombin Time 10.7 SEC (9.30-11.50) Prothromb Time International Ratio 1.0 (0.9-1.1) Activated Partial Thromboplast Time 26 SEC (23-33) Sodium Level 140 MMOL/L (136-145) Potassium Level 3.2 MMOL/L (3.5-5.1) L Chloride Level 100 MMOL/L (98-107) Carbon Dioxide Level 33 MMOL/L (21-32) H Anion Gap 7 mmol/L (5-15) Blood Urea Nitrogen 15 mg/dL (7-18) Creatinine 1.1 MG/DL (0.55-1.30) Estimat Glomerular Filtration Rate > 60 mL/min (>60) Glucose Level 115 MG/DL (74-106) H Lactic Acid Level 2.40 mmol/L (0.4-2.0) H 2.00 mmol/L (0.66-2.22) Calcium Level 8.9 MG/DL (8.5-10.1) Magnesium Level 1.8 MG/DL (1.8-2.4) Ferritin 15 NG/ML (8-388) Total Bilirubin 0.2 MG/DL (0.2-1.0) Aspartate Amino Transf (AST/SGOT) 16 U/L (15-37) Alanine Aminotransferase (ALT/SGPT) 15 U/L (12-78) Alkaline Phosphatase 95 U/L (46-116) Lactate Dehydrogenase 170 U/L (81-234) Total Creatine Kinase 191 U/L (26-308) Creatine Kinase MB 1.6 NG/ML (0.0-3.6) Creatine Kinase MB Relative Index 0.8 Troponin I 0.000 ng/mL (0.000-0.056) C-Reactive Protein, Quantitative 3.6 mg/dL (0.00-0.90) H Pro-B-Type Natriuretic Peptide 50 pg/mL (0-125) Total Protein 7.3 G/DL (6.4-8.2) Albumin 3.0 G/DL (3.4-5.0) L Globulin 4.3 g/dL Albumin/Globulin Ratio 0.7 (1.0-2.7) L Lipase 202 U/L (73-393) Urine Color Pale yellow Urine Appearance Clear Urine pH 5 (4.5-8.0) Urine Specific [place] 1.020 (1.005-1.035) Urine Protein Negative (NEGATIVE) Urine Glucose (UA) Negative (NEGATIVE) Urine Ketones Negative (NEGATIVE) Urine Blood 1+ (NEGATIVE) H Urine Nitrite Negative (NEGATIVE) Urine Bilirubin Negative (NEGATIVE) Urine Urobilinogen Normal MG/DL (0.0-1.0) Urine Leukocyte Esterase Negative (NEGATIVE) Urine RBC 0-2 /HPF (0 - 2) Urine WBC 0-2 /HPF (0 - 2) Urine Squamous Epithelial Cells Few /LPF (NONE/OCC) Urine Bacteria Few /HPF (NONE) Microbiology Date/Time Source Procedure Growth Status 02/27/20 22:30 Nasopharynx SARS-CoV-2 RdRp Gene Assay - Final Complete Height (Feet): 5 Height (Inches): 9.00 Weight (Pounds): 410 Medications Current Medications Medications (Trade) Dose Ordered Sig/Key Route PRN Reason Start Time Stop Time Status Last Admin Dose Admin Allopurinol (Zyloprim) 100 mg DAILY ORAL 02/28/20 09:00 03/29/20 08:59 02/28/20 08:08 Apixaban (Eliquis) 5 mg BID ORAL 02/28/20 09:00 05/28/20 08:59 02/28/20 08:08 Dextrose (Dextrose 50%) 25 ml Q30M PRN IV Hypoglycemia 02/28/20 03:45 05/28/20 03:44 Dextrose (Dextrose 50%) 50 ml Q30M PRN IV Hypoglycemia 02/28/20 03:45 05/28/20 03:44 Docusate Sodium (Colace) 100 mg TWICE A DAY ORAL 02/28/20 09:00 03/29/20 08:59 02/28/20 08:07 Hydrochlorothiazide (Hydrodiuril) 25 mg DAILY ORAL 02/28/20 09:00 03/29/20 08:59 02/28/20 08:07 Insulin Aspart (NovoLOG) BEFORE MEALS AND HS SUBQ 02/28/20 06:30 05/28/20 06:29 Metformin HCl (Glucophage) 500 mg TWICE A DAY ORAL 02/28/20 09:00 03/29/20 08:59 02/28/20 08:07 Multivitamins (Multivitamins) 1 tab DAILY ORAL 02/28/20 09:00 03/29/20 08:59 02/28/20 08:07 Oxycodone HCl (Roxicodone) 5 mg Q4H PRN ORAL Moderate Pain (Pain Scale 4-6) 02/28/20 03:30 03/06/20 03:29 Oxycodone HCl (Roxicodone) 10 mg Q4H PRN ORAL Severe Pain (Pain Scale 7-10) 02/28/20 03:30 03/06/20 03:29 Assessment/Plan Problem List: (1) Morbid obesity ICD Codes: E66.01 - Morbid (severe) obesity due to excess calories SNOMED: 320535808 (2) Left leg cellulitis ICD Codes: L03.116 - Cellulitis of left leg SNOMED: 995468698 (3) Factor 5 Leiden mutation, heterozygous ICD Codes: D68.8 - Factor 5 Leiden mutation, heterozygous SNOMED: 421451235 (4) Gout ICD Codes: M10.9 - Gout, unspecified SNOMED: 67614507 (5) HTN (hypertension) ICD Codes: I10 - Essential (primary) hypertension SNOMED: 84760345 (6) Factor V Leiden ICD Codes: D68.51 - Activated protein C resistance SNOMED: 187632235 (7) Cellulitis of right leg ICD Codes: L03.115 - Cellulitis of right lower limb SNOMED: 360367707 (8) Hypokalemia ICD Codes: E87.6 - Hypokalemia SNOMED: 51380776 (9) DVT, bilateral lower limbs ICD Codes: I82.403 - Acute embolism and thrombosis of unspecified deep veins of lower extremity, bilateral SNOMED: 391166488, 844321921 Status: stable Assessment/Plan: 59 year old female with multiple medical problems presented from SNF facility with persistent white count. #B/L lower extremity cellulitis #Leukocytosis #chronic venous stasis dermatitis -IV antibiotics per ID - Vanc and Zosyn -Follow blood cultures -Wound care -Trend WBC -Consult to general surgery - appreciate recs -ID consult #Lowe extremity DVT #Factor V Leiden -Continue with home Eliquis -duplex LE negative for dvt #NID Diabetes mellitus -Patient prefers to continue with Metformin Vs. ISS -Glucose checks qAC qHS -CC diet #HTN -HCTZ #Severe class III obesity -weight loss counselling I spent 72 minutes on this encounter. 35 minutes spent on counselling and care coordination.Plan of care discussed with patient and consultants Jese Lees M.D. Feb 28, 2020 09:22
[2020-02-28] MEDS ORDERED: VANCOMYCIN500 MG/100 IV (09:51)
[2020-02-28] MEDS ORDERED: PRO-STAT LIQUID30 ML ORAL (09:51)
[2020-02-28] MEDS ORDERED: HYDROCHLOROTHIA50 MG ORAL (09:51)
[2020-02-28] MEDS ORDERED: VITAMIN D250 MCG PO (09:51)
[2020-02-28] MEDS ORDERED: MAGNESIUM OXID400 M1 ORAL (09:51)
[2020-02-28] MEDS ORDERED: POTASSIUM CHLO20 ME1 ORAL (09:51)
[2020-02-28 10:05] LABS: BASOPHILS % (AUTO) 1.2 % (0.0-2.0); EOSINOPHILS % (AUTO) 1.3 % (0.0-3.0); HEMATOCRIT 29.4 % (37.0-47.0); HEMOGLOBIN 9.2 G/DL (12.0-16.0); LYMPHOCYTES % (AUTO) 12.3 % (20.0-45.0); MEAN CORPUSCULAR VOLUME 77 FL (80-99); MONOCYTES % (AUTO) 5.5 % (1.0-10.0); NEUTROPHILS % (AUTO) 79.7 % (45.0-75.0); PLATELET COUNT 255 K/UL (150-450); RED BLOOD COUNT 3.82 M/UL (4.20-5.40); RED CELL DISTRIBUTION WIDTH 14.7 % (11.6-14.8); WHITE BLOOD COUNT 12.4 K/UL (4.8-10.8)
[2020-02-28 10:08] LABS: ANION GAP 6 mmol/L (5-15); BLOOD UREA NITROGEN 15 mg/dL (7-18); CALCIUM 8.3 MG/DL (8.5-10.1); CARBON DIOXIDE 31 MMOL/L (21-32); CHLORIDE 100 MMOL/L (98-107); CREATININE 0.8 MG/DL (0.55-1.30); POTASSIUM 3.1 MMOL/L (3.5-5.1); SODIUM 137 MMOL/L (136-145)
--- NOTE | 2020-02-28 11:45 | Consultation ---
History of Present Illness General Date patient seen: Feb 28, 2020 Reason for Hospitalization: Abnormal Labs Present Illness HPI 59-year-old well known to me from prior admissions history of bilateral lower extremity cellulitis left worse than right presented with leukocytosis lactic acidosis potential sepsis. Placed on IV antibiotics identified to have cellulitis in bilateral lower extremities with edema surgery called to evaluate assist with care. Patient seen, patient evaluated, chart reviewed. States she was doing well since her last admission but recently is identified little more significant pain discomfort and swelling in her leg surgery came in for evaluation. No nausea vomiting fever chills Allergies: Coded Allergies: SULFA (SULFONAMIDE ANTIBIOTICS) (Unverified Allergy, Unknown, 05/02/15) allergy history per Dr. Jones COVID-19 Screening Contact w/high risk pt: No Recent Travel to affected area: No Experienced COVID-19 symptoms?: No Medication History Scheduled Allopurinol* (Allopurinol*), 100 MG ORAL DAILY, (Reported) Amino Acids/Protein Hydrolys (Pro-Stat Liquid), 30 ML ORAL DAILY, (Reported) Apixaban (Eliquis*), 5 MG PO BID, (Reported) Docusate Sodium* (Colace*), 100 MG ORAL TWICE A DAY, (Reported) Febuxostat (Uloric), 40 MG ORAL DAILY, (Reported) Furosemide* (Lasix*), 40 MG ORAL DAILY Hydrochlorothiazide* (Hydrochlorothiazide*), 50 MG ORAL DAILY, (Reported) Liraglutide (Saxenda), 3 MG SQ DAILY, (Reported) Magnesium Oxide (Magnesium Oxide), 400 MG ORAL DAILY, (Reported) Metformin Hcl* (Metformin Hcl*), 500 MG ORAL TWICE A DAY, (Reported) Multivitamin (Daily Mario), 1 TAB ORAL DAILY, (Reported) Potassium Chloride* (K-Dur*), 20 MEQ ORAL DAILY, (Reported) Scheduled PRN Gabapentin* (Gabapentin*), 100 MG ORAL Q12H PRN Hydrocodone Bit/Acetaminophen 7.5-300 Mg Tabl (Vicodin Es 7.5-300 Mg Tablet), 1 TAB ORAL Q4H PRN for For Pain, (Reported) Miscellaneous Medications Ergocalciferol (Vitamin D2) (Vitamin D2), 1.25 MG PO, (Reported) Vancomycin Hcl/D5w (Vancomycin-D5w 500 Mg/100 Ml), 2 GM IV, (Reported) Discontinued Medications Cephalexin* (Keflex*), 500 MG ORAL EVERY 6 HOURS Discontinued Reason: Therapy completed Hydrochlorothiazide* (Hydrochlorothiazide*), 25 MG ORAL DAILY, (Reported) Discontinued Reason: Prescription changed Patient History History Provided By: Patient, Medical Record, PMD Healthcare decision maker Resuscitation status Advanced Directive on File Past Medical/Surgical History Past Medical/Surgical History: (1) Sepsis (2) Acute cholecystitis (3) Acute cholecystitis (4) Hypokalemia (5) Atypical psychosis (6) Acute blood loss anemia (7) Thrush (8) Morbid obesity (9) Anemia (10) Back pain (11) Cough (12) Diarrhea (13) SOB (shortness of breath) (14) Flank pain (15) Leukocytosis (16) Leukocytosis (17) Post-menopausal bleeding (18) Vaginal bleeding (19) Hypoalbuminemia (20) Rectal bleeding (21) Venous stasis (22) Hypertension (23) Pneumonitis (24) Obesity (25) Chronic pain (26) Muscle ache (27) Cellulitis, leg (28) Cellulitis, leg (29) Clostridium difficile colitis (30) Diabetes type 2, controlled (31) Shoulder pain, right (32) Cellulitis of right leg (33) Chronic wound of extremity (34) Flank pain, acute (35) Injury of lower extremity (36) Left leg cellulitis (37) Bilateral cellulitis of lower leg (38) Bilateral lower leg cellulitis (39) Poor intravenous access (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, recurrent, lower extremity, acute and chronic (41) Deep vein thrombosis (DVT) of left lower extremity (42) Acute DVT of LLE (43) lives on own at home (44) lateral posterior left leg superficial skin breakdown ulcer (45) abdominal wall swelling (46) leg pain (47) probable abscess (48) Abnormal laboratory test result (49) BMI 60.0-69.9, adult (50) Elevated lactic acid level (51) COVID-19 ruled out by laboratory testing (52) Hypokalemia (53) Cellulitis (54) Gout (55) Morbid obesity (56) HTN (hypertension) (57) ACS (acute coronary syndrome) (58) Factor V Leiden (59) Cellulitis of right leg (60) Left leg cellulitis (61) Factor 5 Leiden mutation, heterozygous (62) DVT, bilateral lower limbs Family History Family History: Patient reports no known family medical history. Review of Systems Review of Symptoms General ROS: no weight loss or fever Psychological ROS: no depression or mood changes, no memory loss Ophthalmic ROS: no visual changes or eye irritation ENT ROS: no nasal congestion, hearing loss, dizziness Allergy and Immunology ROS: no allergic symptoms or urticaria Hematological and Lymphatic ROS: no swollen glands, unusual bleeding or bruising Endocrine ROS: no polyuria, polydipsia, weight changes, temperature intolerance Respiratory ROS: no cough, shortness of breath, or wheezing Cardiovascular ROS: no chest pain or dyspnea on exertion Gastrointestinal ROS: denies abdominal pain, bright red blood in stool. Musculoskeletal ROS: no myalgias or arthralgias Neurological ROS: no TIA or stroke symptoms Dermatological ROS: no new or changing skin lesions, rashes or pruritis Physical Exam Physical Exam General appearance: alert, cooperative, no distress, appears stated age Head: Normocephalic, without obvious abnormality, atraumatic Eyes: conjunctivae/corneas clear. PERRL, EOM's intact. Fundi benign Throat: Lips, mucosa, and tongue normal. Teeth and gums normal Neck: supple, symmetrical, trachea midline, no adenopathy, thyroid: not enlarged, symmetric, no tenderness/mass/nodules, no carotid bruit and no JVD Lungs: clear to auscultation bilaterally Heart: regular rate and rhythm, S1, S2 normal, no murmur, click, rub or gallop Abdomen: soft, non-tender. Bowel sounds normal. No masses, no organomegaly Extremities: extremities ++ edema Pulses: 2+ and symmetric Skin: Skin color, texture, turgor normal. No rashes or lesions Neurologic: Grossly normal Last 24 Hour Vital Signs Date Time Temp Pulse Resp B/P (MAP) Pulse Ox O2 Delivery O2 Flow Rate FiO2 02/28/20 09:00 Room Air 02/28/20 08:00 97.7 90 18 131/88 (102) 95 02/28/20 04:17 98.6 02/28/20 04:00 98.6 85 20 125/75 (92) 96 02/28/20 01:12 Room Air 02/28/20 01:10 96.8 87 20 123/71 (88) 95 02/28/20 00:45 98.1 80 18 132/72 96 Room Air 02/27/20 23:43 98.1 10/16/20 23:00 98.1 82 16 129/67 94 Room Air 02/27/20 21:00 98.1 86 16 134/76 98 Room Air 02/27/20 20:55 98.1 72 16 134/76 (95) 98 Room Air Intake and Output 02/27/20 02/28/20 19:00 07:00 Intake Total 360 ml Balance 360 ml Intake Oral 360 ml # Voids 1 Laboratory Tests Test 02/27/20 22:30 02/28/20 00:30 02/28/20 07:00 02/28/20 09:05 White Blood Count 12.7 K/UL (4.8-10.8) H 12.4 K/UL (4.8-10.8) H Red Blood Count 4.19 M/UL (4.20-5.40) L 3.82 M/UL (4.20-5.40) L Hemoglobin 10.3 G/DL (12.0-16.0) L 9.2 G/DL (12.0-16.0) L Hematocrit 34.0 % (37.0-47.0) L 29.4 % (37.0-47.0) L Mean Corpuscular Volume 81 FL (80-99) 77 FL (80-99) L Mean Corpuscular Hemoglobin 24.6 PG (27.0-31.0) L 24.0 PG (27.0-31.0) L Mean Corpuscular Hemoglobin Concent 30.4 G/DL (32.0-36.0) L 31.3 G/DL (32.0-36.0) L Red Cell Distribution Width 16.2 % (11.6-14.8) H 14.7 % (11.6-14.8) Platelet Count 275 K/UL (150-450) 255 K/UL (150-450) Mean Platelet Volume 6.5 FL (6.5-10.1) 5.8 FL (6.5-10.1) L Neutrophils (%) (Auto) 75.9 % (45.0-75.0) H 79.7 % (45.0-75.0) H Lymphocytes (%) (Auto) 16.3 % (20.0-45.0) L 12.3 % (20.0-45.0) L Monocytes (%) (Auto) 5.5 % (1.0-10.0) 5.5 % (1.0-10.0) Eosinophils (%) (Auto) 1.5 % (0.0-3.0) 1.3 % (0.0-3.0) Basophils (%) (Auto) 0.7 % (0.0-2.0) 1.2 % (0.0-2.0) Prothrombin Time 10.7 SEC (9.30-11.50) Prothromb Time International Ratio 1.0 (0.9-1.1) Activated Partial Thromboplast Time 26 SEC (23-33) Sodium Level 140 MMOL/L (136-145) 137 MMOL/L (136-145) Potassium Level 3.2 MMOL/L (3.5-5.1) L 3.1 MMOL/L (3.5-5.1) L Chloride Level 100 MMOL/L (98-107) 100 MMOL/L (98-107) Carbon Dioxide Level 33 MMOL/L (21-32) H 31 MMOL/L (21-32) Anion Gap 7 mmol/L (5-15) 6 mmol/L (5-15) Blood Urea Nitrogen 15 mg/dL (7-18) 15 mg/dL (7-18) Creatinine 1.1 MG/DL (0.55-1.30) 0.8 MG/DL (0.55-1.30) Estimat Glomerular Filtration Rate > 60 mL/min (>60) > 60 mL/min (>60) Glucose Level 115 MG/DL (74-106) H 138 MG/DL (74-106) H Lactic Acid Level 2.40 mmol/L (0.4-2.0) H 2.00 mmol/L (0.66-2.22) Calcium Level 8.9 MG/DL (8.5-10.1) 8.3 MG/DL (8.5-10.1) L Magnesium Level 1.8 MG/DL (1.8-2.4) Ferritin 15 NG/ML (8-388) Total Bilirubin 0.2 MG/DL (0.2-1.0) Aspartate Amino Transf (AST/SGOT) 16 U/L (15-37) Alanine Aminotransferase (ALT/SGPT) 15 U/L (12-78) Alkaline Phosphatase 95 U/L (46-116) Lactate Dehydrogenase 170 U/L (81-234) Total Creatine Kinase 191 U/L (26-308) Creatine Kinase MB 1.6 NG/ML (0.0-3.6) Creatine Kinase MB Relative Index 0.8 Troponin I 0.000 ng/mL (0.000-0.056) C-Reactive Protein, Quantitative 3.6 mg/dL (0.00-0.90) H Pro-B-Type Natriuretic Peptide 50 pg/mL (0-125) Total Protein 7.3 G/DL (6.4-8.2) Albumin 3.0 G/DL (3.4-5.0) L Globulin 4.3 g/dL Albumin/Globulin Ratio 0.7 (1.0-2.7) L Lipase 202 U/L (73-393) Urine Color Pale yellow Urine Appearance Clear Urine pH 5 (4.5-8.0) Urine Specific [place] 1.020 (1.005-1.035) Urine Protein Negative (NEGATIVE) Urine Glucose (UA) Negative (NEGATIVE) Urine Ketones Negative (NEGATIVE) Urine Blood 1+ (NEGATIVE) H Urine Nitrite Negative (NEGATIVE) Urine Bilirubin Negative (NEGATIVE) Urine Urobilinogen Normal MG/DL (0.0-1.0) Urine Leukocyte Esterase Negative (NEGATIVE) Urine RBC 0-2 /HPF (0 - 2) Urine WBC 0-2 /HPF (0 - 2) Urine Squamous Epithelial Cells Few /LPF (NONE/OCC) Urine Bacteria Few /HPF (NONE) Hemoglobin A1c 6.3 % (4.3-6.0) H Microbiology Date/Time Source Procedure Growth Status 02/27/20 22:30 Nasopharynx SARS-CoV-2 RdRp Gene Assay - Final Complete Height (Feet): 5 Height (Inches): 9.00 Weight (Pounds): 410 Medications Current Medications Medications (Trade) Dose Ordered Sig/Key Route PRN Reason Start Time Stop Time Status Last Admin Dose Admin Allopurinol (Zyloprim) 100 mg DAILY ORAL 02/28/20 09:00 03/29/20 08:59 02/28/20 08:08 Apixaban (Eliquis) 5 mg BID ORAL 02/28/20 09:00 05/28/20 08:59 02/28/20 08:08 Dextrose (Dextrose 50%) 25 ml Q30M PRN IV Hypoglycemia 02/28/20 03:45 05/28/20 03:44 Dextrose (Dextrose 50%) 50 ml Q30M PRN IV Hypoglycemia 02/28/20 03:45 05/28/20 03:44 Docusate Sodium (Colace) 100 mg TWICE A DAY ORAL 02/28/20 09:00 03/29/20 08:59 02/28/20 08:07 Hydrochlorothiazide (Hydrodiuril) 25 mg DAILY ORAL 02/28/20 09:00 03/29/20 08:59 02/28/20 08:07 Insulin Aspart (NovoLOG) BEFORE MEALS AND HS SUBQ 02/28/20 06:30 05/28/20 06:29 Metformin HCl (Glucophage) 500 mg TWICE A DAY ORAL 02/28/20 09:00 03/29/20 08:59 02/28/20 08:07 Multivitamins (Multivitamins) 1 tab DAILY ORAL 02/28/20 09:00 03/29/20 08:59 02/28/20 08:07 Oxycodone HCl (Roxicodone) 5 mg Q4H PRN ORAL Moderate Pain (Pain Scale 4-6) 02/28/20 03:30 03/06/20 03:29 Oxycodone HCl (Roxicodone) 10 mg Q4H PRN ORAL Severe Pain (Pain Scale 7-10) 02/28/20 03:30 03/06/20 03:29 Potassium Chloride (K-Dur) 60 meq ONCE ORAL 02/28/20 11:15 02/28/20 12:15 02/28/20 11:31 Assessment/Plan Problem List: (1) Abnormal laboratory test result ICD Codes: R89.9 - Unspecified abnormal finding in specimens from other organs, systems and tissues SNOMED: 316377812 (2) BMI 60.0-69.9, adult ICD Codes: Z68.44 - Body mass index [BMI] 60.0-69.9, adult SNOMED: 550232726, 617260004 (3) Elevated lactic acid level ICD Codes: R79.89 - Other specified abnormal findings of blood chemistry SNOMED: 9314216, 546570913 (4) COVID-19 ruled out by laboratory testing ICD Codes: Z03.818 - Encounter for observation for suspected exposure to other biological agents ruled out SNOMED: 014766513, 626969236 (5) Hypokalemia ICD Codes: E87.6 - Hypokalemia SNOMED: 25965432 (6) Cellulitis Assessment & Plan: Patient present on admission with bilateral lower extremity cellulitis edema. Has had this in the past. States legs have been increasing in size and causing more discomfort. On admission leukocytosis, lactic acidosis, started on antibiotics. Keeping legs elevated. Still ambulatory. No nausea vomiting fever chills. No acute surgical invention at this time Continue antibiotics per infectious disease Okay for diet as tolerated Activity as tolerated keep legs elevated while in bed Trend labs We will follow with recommendations thank you for let me participate in patient's care ICD Codes: L03.90 - Cellulitis SNOMED: 510986612 Qualifiers: Qualified Codes: L03.116 - Cellulitis of left lower limb (7) Gout ICD Codes: M10.9 - Gout, unspecified SNOMED: 88872296 (8) Morbid obesity ICD Codes: E66.01 - Morbid (severe) obesity due to excess calories SNOMED: 804861124 (9) HTN (hypertension) ICD Codes: I10 - Essential (primary) hypertension SNOMED: 07641107 (10) ACS (acute coronary syndrome) ICD Codes: I24.9 - Acute ischemic heart disease, unspecified SNOMED: 674208903 (11) Factor V Leiden ICD Codes: D68.51 - Activated protein C resistance SNOMED: 211897073 (12) Cellulitis of right leg ICD Codes: L03.115 - Cellulitis of right lower limb SNOMED: 969289872 (13) Left leg cellulitis ICD Codes: L03.116 - Cellulitis of left leg SNOMED: 007230931 (14) Factor 5 Leiden mutation, heterozygous ICD Codes: D68.8 - Factor 5 Leiden mutation, heterozygous SNOMED: 760335413 (15) DVT, bilateral lower limbs ICD Codes: I82.403 - Acute embolism and thrombosis of unspecified deep veins of lower extremity, bilateral SNOMED: 682576055, 903840597 (16) Acute cholecystitis ICD Codes: K81.0 - Acute cholecystitis SNOMED: 59725611 (17) Acute cholecystitis ICD Codes: K81.0 - Acute cholecystitis SNOMED: 18798340 (18) Hypokalemia ICD Codes: E87.6 - Hypokalemia SNOMED: 44516937 (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 SNOMED: 52014394 (20) Acute blood loss anemia ICD Codes: D62 - Acute posthemorrhagic anemia SNOMED: 303951103 (21) Thrush ICD Codes: B37.0 - Thrush SNOMED: 69691482 (22) Morbid obesity ICD Codes: E66.01 - Morbid obesity SNOMED: 167329458 (23) Anemia ICD Codes: D64.9 - Anemia SNOMED: 324635260 (24) Back pain ICD Codes: M54.9 - Dorsalgia, unspecified SNOMED: 620522668 (25) Cough ICD Codes: R05 - Cough SNOMED: 91039961 (26) Diarrhea ICD Codes: R19.7 - Diarrhea, unspecified SNOMED: 15747356 (27) SOB (shortness of breath) ICD Codes: R06.02 - Shortness of breath SNOMED: 989237940 (28) Flank pain ICD Codes: R10.9 - Unspecified abdominal pain SNOMED: 354969584 (29) Leukocytosis ICD Codes: D72.829 - Elevated white blood cell count, unspecified SNOMED: 939526749, 569879961 (30) Leukocytosis ICD Codes: D72.829 - Elevated white blood cell count, unspecified SNOMED: 625050897, 247873092 (31) Post-menopausal bleeding ICD Codes: N95.0 - Postmenopausal bleeding SNOMED: 03740716 (32) Vaginal bleeding ICD Codes: N93.9 - Abnormal uterine and vaginal bleeding, unspecified SNOMED: 878713120, 825680345 (33) Hypoalbuminemia ICD Codes: E88.09 - Other disorders of plasma-protein metabolism, not elsewhere classified SNOMED: 001245833 (34) Sepsis ICD Codes: A41.9 - Sepsis, unspecified organism SNOMED: 79430460 (35) Rectal bleeding ICD Codes: K62.5 - Hemorrhage of anus and rectum SNOMED: 07623716 (36) Venous stasis ICD Codes: I87.8 - Other specified disorders of veins SNOMED: 29644982 (37) Hypertension ICD Codes: I10 - Hypertension SNOMED: 51638935 (38) Pneumonitis ICD Codes: J18.9 - Pneumonia, unspecified organism SNOMED: 877096262 (39) Obesity ICD Codes: E66.9 - Obesity, unspecified SNOMED: 845126566 (40) Chronic pain ICD Codes: G89.29 - Other chronic pain SNOMED: 69085507 (41) Muscle ache ICD Codes: M79.1 - Myalgia SNOMED: 38229313 (42) Cellulitis, leg ICD Codes: L03.119 - Cellulitis, leg SNOMED: 557266881 (43) Cellulitis, leg ICD Codes: L03.119 - Cellulitis of unspecified part of limb SNOMED: 671415447 (44) Clostridium difficile colitis ICD Codes: A04.7 - Clostridium difficile colitis SNOMED: 052285071 (45) Diabetes type 2, controlled ICD Codes: E11.9 - Type 2 diabetes mellitus without complications SNOMED: 06470916, 447651472 (46) Shoulder pain, right ICD Codes: M25.511 - Pain in right shoulder SNOMED: 25965207, 54549337 (47) Cellulitis of right leg ICD Codes: L03.115 - Cellulitis of right leg SNOMED: 738792696 (48) Chronic wound of extremity SNOMED: 572361271 (49) Flank pain, acute ICD Codes: R10.9 - Unspecified abdominal pain SNOMED: 154549943 (50) Injury of lower extremity ICD Codes: S89.90XA - Unspecified injury of unspecified lower leg, initial encounter SNOMED: 307927985 (51) Left leg cellulitis ICD Codes: L03.116 - Cellulitis of left lower limb SNOMED: 409430467 (52) Bilateral cellulitis of lower leg ICD Codes: L03.116 - Cellulitis of left lower limb; L03.115 - Cellulitis of right lower limb SNOMED: 089893841 (53) Bilateral lower leg cellulitis ICD Codes: L03.116 - Cellulitis of left lower limb; L03.115 - Cellulitis of right lower limb SNOMED: 733285745 (54) Poor intravenous access ICD Codes: Z87.898 - Poor intravenous access SNOMED: 624329094 (55) DVT, recurrent, lower extremity, acute and chronic ICD Codes: I82.409 - DVT, recurrent, lower extremity, acute and chronic; I82.50 9 - Chronic embolism and thombos unsp deep vn unsp low extrm SNOMED: 289317227 (56) Deep vein thrombosis (DVT) of left lower extremity ICD Codes: I82.402 - Acute embolism and thrombosis of unspecified deep veins of left lower extremity SNOMED: 856214365 (57) Acute DVT of LLE (58) lives on own at home (59) lateral posterior left leg superficial skin breakdown ulcer (60) abdominal wall swelling (61) leg pain (62) probable abscess Chuy Damian Feb 28, 2020 11:45
--- NOTE | 2020-02-28 17:03 | Infectious Diseases Prog Note ---
Assessment/Plan Assessment/Plan Full consult dictated: A) 1) bilateral leg/foot cellulitis 2) ? sepsis 3) [id number] 4) pmh noted 5) allergies - nkda P) 1) zosyn and vancomycin 2) monitor clinically and labs 3) will f/u 4) thank you Subjective Allergies: Coded Allergies: SULFA (SULFONAMIDE ANTIBIOTICS) (Unverified Allergy, Unknown, 05/02/15) allergy history per Dr. Jones Objective Last 24 Hour Vital Signs Date Time Temp Pulse Resp B/P (MAP) Pulse Ox O2 Delivery O2 Flow Rate FiO2 02/28/20 12:00 97.9 80 19 143/78 (99) 96 02/28/20 09:00 Room Air 02/28/20 08:00 97.7 90 18 131/88 (102) 95 02/28/20 04:17 98.6 02/28/20 04:00 98.6 85 20 125/75 (92) 96 02/28/20 01:12 Room Air 02/28/20 01:10 96.8 87 20 123/71 (88) 95 02/28/20 00:45 98.1 80 18 132/72 96 Room Air 02/27/20 23:43 98.1 02/27/20 23:00 98.1 82 16 129/67 94 Room Air 02/27/20 21:00 98.1 86 16 134/76 98 Room Air 02/27/20 20:55 98.1 72 16 134/76 (95) 98 Room Air Height (Feet): 5 Height (Inches): 9.00 Weight (Pounds): 410 Microbiology Date/Time Source Procedure Growth Status 02/27/20 22:30 Nasopharynx SARS-CoV-2 RdRp Gene Assay - Final Complete Laboratory Tests Test 02/27/20 22:30 02/28/20 00:30 02/28/20 07:00 02/28/20 09:05 White Blood Count 12.7 K/UL (4.8-10.8) H 12.4 K/UL (4.8-10.8) H Red Blood Count 4.19 M/UL (4.20-5.40) L 3.82 M/UL (4.20-5.40) L Hemoglobin 10.3 G/DL (12.0-16.0) L 9.2 G/DL (12.0-16.0) L Hematocrit 34.0 % (37.0-47.0) L 29.4 % (37.0-47.0) L Mean Corpuscular Volume 81 FL (80-99) 77 FL (80-99) L Mean Corpuscular Hemoglobin 24.6 PG (27.0-31.0) L 24.0 PG (27.0-31.0) L Mean Corpuscular Hemoglobin Concent 30.4 G/DL (32.0-36.0) L 31.3 G/DL (32.0-36.0) L Red Cell Distribution Width 16.2 % (11.6-14.8) H 14.7 % (11.6-14.8) Platelet Count 275 K/UL (150-450) 255 K/UL (150-450) Mean Platelet Volume 6.5 FL (6.5-10.1) 5.8 FL (6.5-10.1) L Neutrophils (%) (Auto) 75.9 % (45.0-75.0) H 79.7 % (45.0-75.0) H Lymphocytes (%) (Auto) 16.3 % (20.0-45.0) L 12.3 % (20.0-45.0) L Monocytes (%) (Auto) 5.5 % (1.0-10.0) 5.5 % (1.0-10.0) Eosinophils (%) (Auto) 1.5 % (0.0-3.0) 1.3 % (0.0-3.0) Basophils (%) (Auto) 0.7 % (0.0-2.0) 1.2 % (0.0-2.0) Prothrombin Time 10.7 SEC (9.30-11.50) Prothromb Time International Ratio 1.0 (0.9-1.1) Activated Partial Thromboplast Time 26 SEC (23-33) Sodium Level 140 MMOL/L (136-145) 137 MMOL/L (136-145) Potassium Level 3.2 MMOL/L (3.5-5.1) L 3.1 MMOL/L (3.5-5.1) L Chloride Level 100 MMOL/L (98-107) 100 MMOL/L (98-107) Carbon Dioxide Level 33 MMOL/L (21-32) H 31 MMOL/L (21-32) Anion Gap 7 mmol/L (5-15) 6 mmol/L (5-15) Blood Urea Nitrogen 15 mg/dL (7-18) 15 mg/dL (7-18) Creatinine 1.1 MG/DL (0.55-1.30) 0.8 MG/DL (0.55-1.30) Estimat Glomerular Filtration Rate > 60 mL/min (>60) > 60 mL/min (>60) Glucose Level 115 MG/DL (74-106) H 138 MG/DL (74-106) H Lactic Acid Level 2.40 mmol/L (0.4-2.0) H 2.00 mmol/L (0.66-2.22) Calcium Level 8.9 MG/DL (8.5-10.1) 8.3 MG/DL (8.5-10.1) L Magnesium Level 1.8 MG/DL (1.8-2.4) Ferritin 15 NG/ML (8-388) Total Bilirubin 0.2 MG/DL (0.2-1.0) Aspartate Amino Transf (AST/SGOT) 16 U/L (15-37) Alanine Aminotransferase (ALT/SGPT) 15 U/L (12-78) Alkaline Phosphatase 95 U/L (46-116) Lactate Dehydrogenase 170 U/L (81-234) Total Creatine Kinase 191 U/L (26-308) Creatine Kinase MB 1.6 NG/ML (0.0-3.6) Creatine Kinase MB Relative Index 0.8 Troponin I 0.000 ng/mL (0.000-0.056) C-Reactive Protein, Quantitative 3.6 mg/dL (0.00-0.90) H Pro-B-Type Natriuretic Peptide 50 pg/mL (0-125) Total Protein 7.3 G/DL (6.4-8.2) Albumin 3.0 G/DL (3.4-5.0) L Globulin 4.3 g/dL Albumin/Globulin Ratio 0.7 (1.0-2.7) L Lipase 202 U/L (73-393) Urine Color Pale yellow Urine Appearance Clear Urine pH 5 (4.5-8.0) Urine Specific [place] 1.020 (1.005-1.035) Urine Protein Negative (NEGATIVE) Urine Glucose (UA) Negative (NEGATIVE) Urine Ketones Negative (NEGATIVE) Urine Blood 1+ (NEGATIVE) H Urine Nitrite Negative (NEGATIVE) Urine Bilirubin Negative (NEGATIVE) Urine Urobilinogen Normal MG/DL (0.0-1.0) Urine Leukocyte Esterase Negative (NEGATIVE) Urine RBC 0-2 /HPF (0 - 2) Urine WBC 0-2 /HPF (0 - 2) Urine Squamous Epithelial Cells Few /LPF (NONE/OCC) Urine Bacteria Few /HPF (NONE) Hemoglobin A1c 6.3 % (4.3-6.0) H Current Medications Medications (Trade) Dose Ordered Sig/Key Route PRN Reason Start Time Stop Time Status Last Admin Dose Admin Allopurinol (Zyloprim) 100 mg DAILY ORAL 02/28/20 09:00 03/29/20 08:59 02/28/20 08:08 Apixaban (Eliquis) 5 mg BID ORAL 02/28/20 09:00 05/28/20 08:59 02/28/20 08:08 Dextrose (Dextrose 50%) 25 ml Q30M PRN IV Hypoglycemia 02/28/20 03:45 05/28/20 03:44 Dextrose (Dextrose 50%) 50 ml Q30M PRN IV Hypoglycemia 02/28/20 03:45 05/28/20 03:44 Docusate Sodium (Colace) 100 mg TWICE A DAY ORAL 02/28/20 09:00 03/29/20 08:59 02/28/20 08:07 Hydrochlorothiazide (Hydrodiuril) 25 mg DAILY ORAL 02/28/20 09:00 03/29/20 08:59 02/28/20 08:07 Insulin Aspart (NovoLOG) BEFORE MEALS AND HS SUBQ 02/28/20 06:30 05/28/20 06:29 Metformin HCl (Glucophage) 500 mg TWICE A DAY ORAL 02/28/20 09:00 03/29/20 08:59 02/28/20 08:07 Multivitamins (Multivitamins) 1 tab DAILY ORAL 02/28/20 09:00 03/29/20 08:59 02/28/20 08:07 Oxycodone HCl (Roxicodone) 5 mg Q4H PRN ORAL Moderate Pain (Pain Scale 4-6) 02/28/20 03:30 03/06/20 03:29 Oxycodone HCl (Roxicodone) 10 mg Q4H PRN ORAL Severe Pain (Pain Scale 7-10) 02/28/20 03:30 03/06/20 03:29 Piperacillin Sod/ Tazobactam Sod 3.375 gm/Sodium Chloride 110 ml @ 27.5 mls/hr EVERY 8 HOURS IVPB 02/28/20 22:00 03/04/20 21:59 Vancomycin HCl ([facility] pharmacy to dose) 1 ea DAILY PRN MISC Per rx protocol 02/28/20 16:45 03/29/20 16:44 Slim Javed MD Feb 28, 2020 17:03
[2020-02-28] MEDS: Vancomycin 1.5gm/NS Premix q24h IVPB SCH (17:36)
[2020-02-28] MEDS ORDERED: Vancomycin 1.5 GM in NS 275 ML IVPB SCH (18:00)
--- NOTE | 2020-02-28 19:55 | Cardiology Report ---
APPROVED REPORT EKG Measurement Heart [id number] SD 170P61 [id number] <Conclusion> Normal sinus rhythm Prolonged QT Abnormal ECG
--- NOTE | 2020-02-28 21:00 | Consultation ---
DATE OF CONSULTATION: 02/28/2020 INFECTIOUS DISEASE CONSULTATION CONSULTING PHYSICIAN: Slim Javed MD. ATTENDING PHYSICIAN: Dalia Holm MD. REFERRING PHYSICIAN: Jese Lees MD. REASON FOR CONSULTATION: Bilateral leg and foot cellulitis, mostly in the legs, elevated white count, questionable sepsis. CHIEF COMPLAINT: The patient's chief complaint coming in to the hospital is cellulitis of lower extremities. HISTORY OF PRESENT ILLNESS: This is a 59-year-old female who comes into [facility] with bilateral leg and foot pain. The patient has cellulitis of the lower extremities, more on the left than the right, but both seemed to be involved, especially the lower extremity and leg area and maybe to a some extent on the feet bilaterally. Infectious Disease consultation is requested because of bilateral leg cellulitis or lower extremity cellulitis. The patient has been started appropriately on vancomycin and Zosyn. The patient has elevated white count, questionable sepsis even though the patient does not look septic at this time. MAR was noted. Order were noted. Notes were reviewed. The patient has a history of recurrent cellulitis and has had this condition for some time. She has chronic pain also of lower extremities, history of blood clots or DVT. REVIEW OF SYSTEMS: CONSTITUTIONAL: Generalized fatigue. No focal weakness. No fever, chills, or night sweats. HEAD AND NECK: No headache, neck stiffness, thrush, or dysphagia. CARDIAC: No chest pain or palpitations. PULMONARY: No cough or congestion. GASTROINTESTINAL: No nausea, vomiting, abdominal pain, or diarrhea. GENITOURINARY: No dysuria or frequency. SKIN: No rash. EXTREMITIES: She has leg pain. NEUROLOGIC: No seizures. Denies fatigue. No focal weakness. No neck stiffness or headache. She has some left-sided shoulder pain at this time. No night sweats or weight loss. PAST MEDICAL HISTORY: The patient has a past medical history of recurrent cellulitis of lower extremities. She has history of obesity and history of hypertension. She has a history of elevated white count at the [facility]. She has history of DVT. She has obesity. She has factor V Leiden mutation. She has history of gout and hypokalemia. ALLERGIES: She has allergies to sulfa drugs. No penicillin allergy. SOCIAL HISTORY: Negative for smoking, alcohol, or drug abuse. FAMILY HISTORY: Noncontributory. No mention of tuberculosis or cancer. MEDICATIONS: Upon reviewing MAR, she is on following medications; she is on Zosyn and vancomycin. She is on multivitamin, metformin, hydrochlorothiazide, apixaban, allopurinol. She is on insulin, IV fluids, and oxycodone p.r.n. Outside medications were noted and reconciliated. Antibiotics are vancomycin and Zosyn. PHYSICAL EXAMINATION: VITAL SIGNS: Temperature is 97.9, pulse rate 80, respiratory rate 19, blood pressure 143/70. Saturation 96% on room air. GENERAL: Alert and responsive, in no acute distress. She is oriented x3. HEAD AND NECK: Oral exam, no thrush. eyes, no icterus. Normocephalic. Neck is supple. No JVD. HEART: Regular. No gallop or murmur. No friction rub. ABDOMEN: Soft. Positive bowel sounds. Nontender. LUNGS: Clear bilaterally. No rhonchi or rales. SKIN: No rash or dermatitis. MUSCULOSKELETAL: No evidence of septic arthritis. Lower extremity exam, she has bilateral leg swelling, foot swelling with warmth consistent with cellulitis and pain. PERIPHERAL VASCULAR: No gangrene. GENITOURINARY: No Shah. LINE SITES: Without phlebitis. NEUROLOGIC: Intact. Nonfocal. Alert and oriented. LABORATORY DATA: White count 12.4, hemoglobin 9.2. White count on admission was 12.7. Creatinine was 0.8. Hemoglobin A1c was 6.3. Lactic acid was 2.4 on admission, now is 2.0. Again, creatinine on admission was 1.1, now is 0.8. Urinalysis with leukocyte esterase negative. SARS testing or COVID testing was negative. Nasopharyngeal testing was negative. IMAGING STUDIES: Chest x-ray showed no acute cardiopulmonary disease. Venous duplex showed no DVT. It did show subcutaneous edema. Wounds were reviewed. More superficial wounds noted, did not look acutely infected to me. ASSESSMENT AND PLAN: 1. Bilateral leg cellulitis, possible foot cellulitis. The patient had elevated white count, elevated lactic acid, questionable sepsis. I agree with vancomycin and Zosyn currently. UA is unremarkable. Unclear if blood cultures were done. Continue vancomycin and Zosyn for MRSA, gram-negative coverage and anaerobic coverage. Continue vancomycin and Zosyn for bilateral leg and foot cellulitis. Monitor the patient clinically, monitor cellulitis, monitor white cell count. Check blood culture if done and adjust antibiotics accordingly. If the patient improves and then can transition her to oral antibiotics. Monitor leukocytosis also. Again, questionable sepsis and elevated lactic acid, however, the patient looks fairly stable at this time. Of note, with regard to cellulitis of bilateral leg and feet, the cellulitis is more so on the left than the right. 2. The patient has history of hypertension. Blood pressure treatment per primary care team. 3. Obesity. 4. History of recurrent cellulitis. 5. History of DVT. 6. Factor V Leiden mutation. 7. Gout. 8. Hypokalemia. 9. Skin care protocol per Surgery. 10. Continue treatment per primary care team and consultants. 11. Allergies to sulfa drugs. 12. Social history is negative. 13. Family history is noncontributory. 14. MAR is noted. 15. Case discussed with RN. Slim Javed M.D. DR: HALLE JOB#: [id number] CC:
[2020-02-28] MEDS: Piperacillin/Tazobactam 3.375 GM in NS 110 ML IVPB SCH (21:22)
[2020-02-28] MEDS ORDERED: Acetaminophen 500mg (ES) tab ORAL PRN (21:45)
[2020-02-29 03:49] VITALS: BP 119/79
[2020-02-29] MEDS: Vancomycin 1.5gm/NS Premix q24h IVPB SCH ×2 (04:56→18:04)
[2020-02-29] MEDS: NovoLOG Insulin Flexpen SUBQ SCH ×4 (06:20→21:00)
[2020-02-29 06:31] LABS: BASOPHILS % (AUTO) 2.4 % (0.0-2.0); HEMATOCRIT 30.4 % (37.0-47.0); HEMOGLOBIN 9.4 G/DL (12.0-16.0); LYMPHOCYTES % (AUTO) 13.6 % (20.0-45.0); MEAN CORPUSCULAR VOLUME 78 FL (80-99); MONOCYTES % (AUTO) 5.6 % (1.0-10.0); NEUTROPHILS % (AUTO) 76.4 % (45.0-75.0); PLATELET COUNT 249 K/UL (150-450); RED BLOOD COUNT 3.92 M/UL (4.20-5.40); RED CELL DISTRIBUTION WIDTH 14.9 % (11.6-14.8); WHITE BLOOD COUNT 11.9 K/UL (4.8-10.8)
[2020-02-29] MEDS: Piperacillin/Tazobactam 3.375 GM in NS 110 ML IVPB SCH ×3 (06:49→22:26)
[2020-02-29 07:15] LABS: ANION GAP 7 mmol/L (5-15); BLOOD UREA NITROGEN 15 mg/dL (7-18); CALCIUM 8.1 MG/DL (8.5-10.1); CARBON DIOXIDE 30 MMOL/L (21-32); CHLORIDE 102 MMOL/L (98-107); CREATININE 0.8 MG/DL (0.55-1.30); POTASSIUM 3.9 MMOL/L (3.5-5.1); SODIUM 139 MMOL/L (136-145)
[2020-02-29 08:00] VITALS: BP 128/70
--- NOTE | 2020-02-29 09:04 | General Progress Note ---
Subjective Date patient seen: Feb 29, 2020 ROS Limited/Unobtainable: No Constitutional: Reports: other HEENT: Denies: no symptoms, eye pain, blurred vision, tearing, double vision, ear pain, ear discharge, nose pain, nose congestion, throat pain, throat swelling, mouth pain, mouth swelling, other Cardiovascular: Denies: no symptoms, chest pain, edema, irregular heart rate, lightheadedness, palpitations, syncope, other Respiratory: Denies: no symptoms, cough, orthopnea, shortness of breath, SOB with excertion, SOB at rest, sputum, stridor, wheezing, other Gastrointestinal/Abdominal: Denies: no symptoms, abdomen distended, abdominal pain, black stools, tarry stools, blood in stool, constipated, diarrhea, difficulty swallowing, nausea, poor appetite, poor fluid intake, rectal bleeding, vomiting, other Genitourinary: Denies: no symptoms, burning, discharge, frequency, flank pain, hematuria, incontinence, pain, urgency, other Neurologic/Psychiatric: Denies: no symptoms, anxiety, depressed, emotional problems, headache, numbness, paresthesia, pre-existing deficit, seizure, tingling, tremors, weakness, other Endocrine: Denies: no symptoms, excessive sweating, flushing, intolerance to cold, intolerance to heat, increased hunger, increased thirst, increased urine, unexplained weight gain, unexplained weight loss, other Hematologic/Lymphatic: Denies: no symptoms, anemia, easy bleeding, easy bruisi ng, other Allergies: Coded Allergies: SULFA (SULFONAMIDE ANTIBIOTICS) (Unverified Allergy, Unknown, 05/02/15) allergy history per Dr. Jones Subjective AFVSS asking for IV dilaudid. appears comfortable says has pain in legs and shoulders Objective Last 24 Hour Vital Signs Date Time Temp Pulse Resp B/P (MAP) Pulse Ox O2 Delivery O2 Flow Rate FiO2 02/29/20 08:00 97.2 74 19 128/70 (89) 95 02/29/20 03:49 97.2 88 20 119/79 (92) 97 02/28/20 23:44 98.2 86 20 161/72 (101) 97 02/28/20 21:00 Room Air 02/28/20 20:00 97.8 84 20 132/79 (96) 96 02/28/20 16:00 97.7 96 19 124/69 (87) 96 02/28/20 12:00 97.9 80 19 143/78 (99) 96 Intake and Output 02/28/20 02/29/20 19:00 07:00 Intake Total 1577.5 ml 922.5 ml Balance 1577.5 ml 922.5 ml Intake Oral 1440 ml IV Total 137.5 ml 522.5 ml Other 400 ml # Voids 3 6 # Bowel Movements 1 Laboratory Tests 02/28/20 09:05: White Blood Count 12.4H, Red Blood Count 3.82L, Hemoglobin 9.2L, Hematocrit 29.4L, Mean Corpuscular Volume 77L, Mean Corpuscular Hemoglobin 24.0L, Mean Corpuscular Hemoglobin Concent 31.3L, Red Cell Distribution Width 14.7, Platelet Count 255, Mean Platelet Volume 5.8L, Neutrophils (%) (Auto) 79.7H, Lymphocytes (%) (Auto) 12.3L, Monocytes (%) (Auto) 5.5, Eosinophils (%) (Auto) 1.3, Basophils (%) (Auto) 1.2, Sodium Level 137, Potassium Level 3.1L, Chloride Level 100, Carbon Dioxide Level 31, Anion Gap 6, Blood Urea Nitrogen 15, Creatinine 0.8, Estimat Glomerular Filtration Rate > 60, Glucose Level 138H, Hemoglobin A1c 6.3H, Calcium Level 8.3L 02/28/20 18:43: Troponin I 0.000 02/29/20 05:30: White Blood Count 11.9H, Red Blood Count 3.92L, Hemoglobin 9.4L, Hematocrit 30.4L, Mean Corpuscular Volume 78L, Mean Corpuscular Hemoglobin 24.1L, Mean Corpuscular Hemoglobin Concent 31.0L, Red Cell Distribution Width 14.9H, Platelet Count 249, Mean Platelet Volume 6.4L, Neutrophils (%) (Auto) 76.4H, Lymphocytes (%) (Auto) 13.6L, Monocytes (%) (Auto) 5.6, Eosinophils (%) (Auto) 2.0, Basophils (%) (Auto) 2.4H, Sodium Level 139, Potassium Level 3.9, Chloride Level 102, Carbon Dioxide Level 30, Anion Gap 7, Blood Urea Nitrogen 15, Creatinine 0.8, Estimat Glomerular Filtration Rate > 60, Glucose Level 102, Calcium Level 8.1L Height (Feet): 5 Height (Inches): 9.00 Weight (Pounds): 410 Objective General Appearance: WD/WN, no apparent distress, alert, morbidly obese Lines, tubes and drains: peripheral HEENT: normocephalic, atraumatic, anicteric, mucous membranes moist, PERRL, EOMI Neck: non-tender, normal alignment, supple Respiratory/Chest: chest wall non-tender, lungs clear, normal breath sounds, no respiratory distress, no accessory muscle use Cardiovascular/Chest: normal peripheral pulses, normal rate, regular rhythm Abdomen: normal bowel sounds, non tender, soft, other - obese Extremities: moderate edema Skin Exam: other - chronic bl LE venous stasis dermatitis up to mid nguyen 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, 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 Musculoskeletal: normal muscle bulk Assessment/Plan Problem List: (1) Morbid obesity ICD Codes: E66.01 - Morbid (severe) obesity due to excess calories SNOMED: 528576861 (2) Left leg cellulitis ICD Codes: L03.116 - Cellulitis of left leg SNOMED: 398815501 (3) Factor 5 Leiden mutation, heterozygous ICD Codes: D68.8 - Factor 5 Leiden mutation, heterozygous SNOMED: 421585251 (4) Gout ICD Codes: M10.9 - Gout, unspecified SNOMED: 24097076 (5) HTN (hypertension) ICD Codes: I10 - Essential (primary) hypertension SNOMED: 10071192 (6) Factor V Leiden ICD Codes: D68.51 - Activated protein C resistance SNOMED: 369887443 (7) Cellulitis of right leg ICD Codes: L03.115 - Cellulitis of right lower limb SNOMED: 131980790 (8) Hypokalemia ICD Codes: E87.6 - Hypokalemia SNOMED: 38037893 (9) DVT, bilateral lower limbs ICD Codes: I82.403 - Acute embolism and thrombosis of unspecified deep veins of lower extremity, bilateral SNOMED: 268013712, 342269566 Status: stable Assessment/Plan: 59 year old female with multiple medical problems presented from SNF facility with persistent white count and lactic acidosis #SIRS, ?sepsis #B/L lower extremity cellulitis #Leukocytosis #chronic venous stasis dermatitis -IV antibiotics per ID - Vanc and Zosyn -Follow blood cultures -Wound care -Trend WBC -Consult to general surgery - appreciate recs -ID consult appreciated #Lower extremity DVT #Factor V Leiden -Continue with home Eliquis -duplex LE negative for dvt #NID Diabetes mellitus -Patient prefers to continue with Metformin Vs. ISS -Glucose checks qAC qHS -CC diet #HTN -HCTZ #Severe class III obesity -weight loss counselling I spent 42 minutes on this encounter. 25 minutes spent on counselling and care coordination.Plan of care discussed with patient and consultants Jese Lees M.D. Feb 29, 2020 09:04
[2020-02-29] MEDS: Docusate 100mg cap ORAL SCH ×2 (09:09→18:04)
[2020-02-29] MEDS: hydroCHLOROthiazide 25mg cap ORAL SCH (09:09)
[2020-02-29] MEDS: metFORMIN 500mg tab ORAL SCH ×2 (09:09→18:04)
[2020-02-29] MEDS: Allopurinol 100mg Tab ORAL SCH (09:10)
[2020-02-29] MEDS: Eliquis 5mg tablet ORAL SCH ×2 (09:10→18:04)
[2020-02-29 12:00] VITALS: BP 136/76
[2020-02-29] MEDS: HYDROmorphone 2mg tab ORAL PRN ×2 (13:38→20:04)
--- NOTE | 2020-02-29 14:43 | Surgery Progress Note ---
Surgery Progress Note Subjective Symptoms: improved, tolerating diet, voiding well, passing flatus, pain decreased Objective Last 24 Hour Vital Signs Date Time Temp Pulse Resp B/P (MAP) Pulse Ox O2 Delivery O2 Flow Rate FiO2 02/29/20 08:00 97.2 74 19 128/70 (89) 95 02/29/20 03:49 97.2 88 20 119/79 (92) 97 02/28/20 23:44 98.2 86 20 161/72 (101) 97 02/28/20 21:00 Room Air 02/28/20 20:00 97.8 84 20 132/79 (96) 96 02/28/20 16:00 97.7 96 19 124/69 (87) 96 I&O Intake and Output 02/28/20 02/29/20 19:00 07:00 Intake Total 1577.5 ml 922.5 ml Balance 1577.5 ml 922.5 ml Intake Oral 1440 ml IV Total 137.5 ml 522.5 ml Other 400 ml # Voids 3 6 # Bowel Movements 1 Dressing: dry Wound: clean Cardiovascular: RSR Respiratory: clear Abdomen: soft, non-tender, present bowel sounds Extremities: edema, no tenderness, no cyanosis Laboratory Tests Test 02/28/20 18:43 02/29/20 05:30 02/29/20 06:17 Troponin I 0.000 ng/mL (0.000-0.056) White Blood Count 11.9 K/UL (4.8-10.8) H Red Blood Count 3.92 M/UL (4.20-5.40) L Hemoglobin 9.4 G/DL (12.0-16.0) L Hematocrit 30.4 % (37.0-47.0) L Mean Corpuscular Volume 78 FL (80-99) L Mean Corpuscular Hemoglobin 24.1 PG (27.0-31.0) L Mean Corpuscular Hemoglobin Concent 31.0 G/DL (32.0-36.0) L Red Cell Distribution Width 14.9 % (11.6-14.8) H Platelet Count 249 K/UL (150-450) Mean Platelet Volume 6.4 FL (6.5-10.1) L Neutrophils (%) (Auto) 76.4 % (45.0-75.0) H Lymphocytes (%) (Auto) 13.6 % (20.0-45.0) L Monocytes (%) (Auto) 5.6 % (1.0-10.0) Eosinophils (%) (Auto) 2.0 % (0.0-3.0) Basophils (%) (Auto) 2.4 % (0.0-2.0) H Sodium Level 139 MMOL/L (136-145) Potassium Level 3.9 MMOL/L (3.5-5.1) Chloride Level 102 MMOL/L (98-107) Carbon Dioxide Level 30 MMOL/L (21-32) Anion Gap 7 mmol/L (5-15) Blood Urea Nitrogen 15 mg/dL (7-18) Creatinine 0.8 MG/DL (0.55-1.30) Estimat Glomerular Filtration Rate > 60 mL/min (>60) Glucose Level 102 MG/DL (74-106) Calcium Level 8.1 MG/DL (8.5-10.1) L POC Whole Blood Glucose 99 MG/DL (74-106) Plan Problems: (1) Abnormal laboratory test result (2) BMI 60.0-69.9, adult (3) Elevated lactic acid level (4) COVID-19 ruled out by laboratory testing (5) Hypokalemia (6) Cellulitis (7) Gout (8) Morbid obesity (9) HTN (hypertension) (10) ACS (acute coronary syndrome) (11) Factor V Leiden (12) Cellulitis of right leg (13) Left leg cellulitis (14) Factor 5 Leiden mutation, heterozygous (15) DVT, bilateral lower limbs (16) Acute cholecystitis (17) Acute cholecystitis (18) Hypokalemia (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 Has had this in the past. States legs have been increasing in size and causing more discomfort. On admission leukocytosis, lactic acidosis, started on antibiotics. Keeping legs elevated. Still ambulatory. States today pain is little bit improved. No nausea vomiting fever chills. No acute surgical invention at this time Continue antibiotics per infectious disease Okay for diet as tolerated Activity as tolerated keep legs elevated while in bed Trend labs We will follow with recommendations thank you for let me participate in patient's care (43) Cellulitis, leg (44) Clostridium difficile colitis (45) Diabetes type 2, controlled (46) Shoulder pain, right (47) Cellulitis of right leg (48) Chronic wound of extremity (49) Flank pain, acute (50) Injury of lower extremity (51) Left leg cellulitis (52) Bilateral cellulitis of lower leg (53) Bilateral lower leg cellulitis (54) Poor intravenous access (55) DVT, recurrent, lower extremity, acute and chronic (56) Deep vein thrombosis (DVT) of left lower extremity (57) Acute DVT of LLE (58) lives on own at home (59) lateral posterior left leg superficial skin breakdown ulcer (60) abdominal wall swelling (61) leg pain (62) probable abscess Chuy Damian Feb 29, 2020 14:43
[2020-02-29 16:00] VITALS: BP 121/73
--- NOTE | 2020-02-29 19:31 | Cardiology Report ---
APPROVED REPORT EKG Measurement Heart [id number] <Conclusion> Normal sinus rhythm Low voltage QRS Borderline ECG
[2020-02-29 20:00] VITALS: BP 132/73
[2020-03-01] VITALS: BP 148/81
[2020-03-01] MEDS: HYDROmorphone 2mg tab ORAL PRN ×5 (02:05→20:09)
[2020-03-01 04:00] VITALS: BP 124/52
[2020-03-01 05:18] LABS: BASOPHILS % (AUTO) 5.3 % (0.0-2.0); EOSINOPHILS % (AUTO) 1.9 % (0.0-3.0); HEMATOCRIT 30.4 % (37.0-47.0); HEMOGLOBIN 9.5 G/DL (12.0-16.0); LYMPHOCYTES % (AUTO) 12.3 % (20.0-45.0); MEAN CORPUSCULAR VOLUME 77 FL (80-99); MONOCYTES % (AUTO) 7.1 % (1.0-10.0); NEUTROPHILS % (AUTO) 73.5 % (45.0-75.0); PLATELET COUNT 237 K/UL (150-450); RED BLOOD COUNT 3.98 M/UL (4.20-5.40); RED CELL DISTRIBUTION WIDTH 15.1 % (11.6-14.8); WHITE BLOOD COUNT 12.8 K/UL (4.8-10.8)
[2020-03-01 05:29] LABS: BLOOD UREA NITROGEN 13 mg/dL (7-18); CALCIUM 8.3 MG/DL (8.5-10.1); CARBON DIOXIDE 34 MMOL/L (21-32); CHLORIDE 103 MMOL/L (98-107); CREATININE 0.9 MG/DL (0.55-1.30); POTASSIUM 3.6 MMOL/L (3.5-5.1); SODIUM 141 MMOL/L (136-145)
[2020-03-01] MEDS: Vancomycin 1.5gm/NS Premix q24h IVPB SCH ×2 (06:14→18:50)
[2020-03-01] MEDS: NovoLOG Insulin Flexpen SUBQ SCH ×4 (06:22→20:09)
[2020-03-01 08:00] VITALS: BP 116/70
[2020-03-01] MEDS: hydroCHLOROthiazide 25mg cap ORAL SCH (08:05)
[2020-03-01] MEDS: metFORMIN 500mg tab ORAL SCH ×2 (08:05→17:05)
[2020-03-01] MEDS: Docusate 100mg cap ORAL SCH ×2 (08:05→17:05)
[2020-03-01] MEDS: Allopurinol 100mg Tab ORAL SCH (08:06)
[2020-03-01] MEDS: Eliquis 5mg tablet ORAL SCH ×2 (08:06→17:05)
[2020-03-01] MEDS: Piperacillin/Tazobactam 3.375 GM in NS 110 ML IVPB SCH ×3 (08:23→21:48)
--- NOTE | 2020-03-01 09:17 | General Progress Note ---
Subjective Date patient seen: Mar 01, 2020 ROS Limited/Unobtainable: No Constitutional: Reports: other - right shoulder pain HEENT: Denies: no symptoms, eye pain, blurred vision, tearing, double vision, ear pain, ear discharge, nose pain, nose congestion, throat pain, throat swelling, mouth pain, mouth swelling, other Cardiovascular: Denies: no symptoms, chest pain, edema, irregular heart rate, lightheadedness, palpitations, syncope, other Respiratory: Denies: no symptoms, cough, orthopnea, shortness of breath, SOB with excertion, SOB at rest, sputum, stridor, wheezing, other Gastrointestinal/Abdominal: Denies: no symptoms, abdomen distended, abdominal pain, black stools, tarry stools, blood in stool, constipated, diarrhea, difficulty swallowing, nausea, poor appetite, poor fluid intake, rectal bleeding, vomiting, other Genitourinary: Denies: no symptoms, burning, discharge, frequency, flank pain, hematuria, incontinence, pain, urgency, other Endocrine: Denies: no symptoms, excessive sweating, flushing, intolerance to cold, intolerance to heat, increased hunger, increased thirst, increased urine, unexplained weight gain, unexplained weight loss, other Hematologic/Lymphatic: Denies: no symptoms, anemia, easy bleeding, easy bruising, other Allergies: Coded Allergies: SULFA (SULFONAMIDE ANTIBIOTICS) (Unverified Allergy, Unknown, 05/02/15) allergy history per Dr. Jones Subjective AFVSS asking for IV dilaudid. appears comfortable says has pain in legs and shoulders Objective Last 24 Hour Vital Signs Date Time Temp Pulse Resp B/P (MAP) Pulse Ox O2 Delivery O2 Flow Rate FiO2 03/01/20 08:00 97.9 91 20 116/70 (85) 99 03/01/20 04:00 97.0 80 20 124/52 (76) 95 03/01/20 00:00 98.1 97 20 148/81 (103) 97 02/29/20 21:00 Room Air 02/29/20 20:00 97.9 83 20 132/73 (92) 97 02/29/20 16:00 97.3 80 19 121/73 (89) 98 02/29/20 14:08 97.2 02/29/20 12:00 97.9 70 16 136/76 (96) 94 Intake and Output 10/18/20 10/19/20 19:00 07:00 Intake Total 220.0 ml 1885.0 ml Balance 220.0 ml 1885.0 ml Intake Oral 500 ml IV Total 220.0 ml 385.0 ml Other 1000 ml # Voids 4 # Bowel Movements 1 1 Laboratory Tests 02/29/20 16:57: POC Whole Blood Glucose 85 03/01/20 05:07: White Blood Count 12.8H, Red Blood Count 3.98L, Hemoglobin 9.5L, Hematocrit 30.4L, Mean Corpuscular Volume 77L, Mean Corpuscular Hemoglobin 23.9L, Mean Corpuscular Hemoglobin Concent 31.3L, Red Cell Distribution Width 15.1H, Platelet Count 237, Mean Platelet Volume 5.8L, Neutrophils (%) (Auto) 73.5, Lymphocytes (%) (Auto) 12.3L, Monocytes (%) (Auto) 7.1, Eosinophils (%) (Auto) 1.9, Basophils (%) (Auto) 5.3H, Sodium Level 141, Potassium Level 3.6, Chloride Level 103, Carbon Dioxide Level 34H, Blood Urea Nitrogen 13, Creatinine 0.9, Estimat Glomerular Filtration Rate > 60, Glucose Level 102, Calcium Level 8.3L, Vancomycin Level Trough 15.3H Height (Feet): 5 Height (Inches): 9.00 Weight (Pounds): 410 Objective General Appearance: WD/WN, no apparent distress, alert, morbidly obese Lines, tubes and drains: peripheral HEENT: normocephalic, atraumatic, anicteric, mucous membranes moist, PERRL, EOMI Neck: non-tender, normal alignment, supple Respiratory/Chest: chest wall non-tender, lungs clear, normal breath sounds, no respiratory distress, no accessory muscle use Cardiovascular/Chest: normal peripheral pulses, normal rate, regular rhythm Abdomen: normal bowel sounds, non tender, soft, other - obese Extremities: moderate edema Skin Exam: other - chronic bl LE venous stasis dermatitis up to mid nguyen 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, 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 Musculoskeletal: normal muscle bulk Assessment/Plan Problem List: (1) Morbid obesity ICD Codes: E66.01 - Morbid (severe) obesity due to excess calories SNOMED: 134410588 (2) Left leg cellulitis ICD Codes: L03.116 - Cellulitis of left leg SNOMED: 875377814 (3) Factor 5 Leiden mutation, heterozygous ICD Codes: D68.8 - Factor 5 Leiden mutation, heterozygous SNOMED: 561490706 (4) Gout ICD Codes: M10.9 - Gout, unspecified SNOMED: 42343773 (5) HTN (hypertension) ICD Codes: I10 - Essential (primary) hypertension SNOMED: 81140577 (6) Factor V Leiden ICD Codes: D68.51 - Activated protein C resistance SNOMED: 499176919 (7) Cellulitis of right leg ICD Codes: L03.115 - Cellulitis of right lower limb SNOMED: 917122019 (8) Hypokalemia ICD Codes: E87.6 - Hypokalemia SNOMED: 52916462 (9) DVT, bilateral lower limbs ICD Codes: I82.403 - Acute embolism and thrombosis of unspecified deep veins of lower extremity, bilateral SNOMED: 126660427, 946221640 Status: stable Assessment/Plan: 59 year old female with multiple medical problems presented from SNF facility with persistent white count and lactic acidosis #SIRS, ?sepsis #B/L lower extremity cellulitis #Leukocytosis #chronic venous stasis dermatitis -IV antibiotics per ID - Vanc and Zosyn -Follow blood cultures -Wound care -Trend WBC -Consult to general surgery - appreciate recs -ID consult appreciated #Lower extremity DVT #Factor V Leiden -Continue with home Eliquis -duplex LE negative for dvt #NID Diabetes mellitus -Patient prefers to continue with Metformin Vs. ISS -Glucose checks qAC qHS -CC diet #HTN -HCTZ #Severe class III obesity -weight loss counselling diso: back to rehab [facility] 1-2 days I spent 42 minutes on this encounter. 25 minutes spent on counselling and care coordination.Plan of care discussed with patient and consultants Jese Lees M.D. Mar 01, 2020 09:17
[2020-03-01 12:00] VITALS: BP 127/56
--- NOTE | 2020-03-01 13:18 | Surgery Progress Note ---
Surgery Progress Note Subjective Symptoms: improved, tolerating diet, voiding well, passing flatus, BM, pain decreased Objective Last 24 Hour Vital Signs Date Time Temp Pulse Resp B/P (MAP) Pulse Ox O2 Delivery O2 Flow Rate FiO2 03/01/20 12:00 97.9 86 18 127/56 (79) 95 03/01/20 11:32 97.9 03/01/20 09:00 Room Air 03/01/20 08:00 97.9 91 20 116/70 (85) 99 03/01/20 04:00 97.0 80 20 124/52 (76) 95 03/01/20 00:00 98.1 97 20 148/81 (103) 97 02/29/20 21:00 Room Air 02/29/20 20:00 97.9 83 20 132/73 (92) 97 02/29/20 16:00 97.3 80 19 121/73 (89) 98 02/29/20 14:08 97.2 I&O Intake and Output 02/29/20 03/01/20 18:59 06:59 Intake Total 220.0 ml 1885.0 ml Balance 220.0 ml 1885.0 ml Intake Oral 500 ml IV Total 220.0 ml 385.0 ml Other 1000 ml # Voids 4 # Bowel Movements 1 1 Dressing: dry Wound: clean Cardiovascular: RSR Respiratory: clear Abdomen: soft, non-tender, present bowel sounds Extremities: edema, tenderness, no cyanosis Laboratory Tests Test 02/29/20 16:57 03/01/20 05:07 03/01/20 11:05 POC Whole Blood Glucose 85 MG/DL (74-106) Pending White Blood Count 12.8 K/UL (4.8-10.8) H Red Blood Count 3.98 M/UL (4.20-5.40) L Hemoglobin 9.5 G/DL (12.0-16.0) L Hematocrit 30.4 % (37.0-47.0) L Mean Corpuscular Volume 77 FL (80-99) L Mean Corpuscular Hemoglobin 23.9 PG (27.0-31.0) L Mean Corpuscular Hemoglobin Concent 31.3 G/DL (32.0-36.0) L Red Cell Distribution Width 15.1 % (11.6-14.8) H Platelet Count 237 K/UL (150-450) Mean Platelet Volume 5.8 FL (6.5-10.1) L Neutrophils (%) (Auto) 73.5 % (45.0-75.0) Lymphocytes (%) (Auto) 12.3 % (20.0-45.0) L Monocytes (%) (Auto) 7.1 % (1.0-10.0) Eosinophils (%) (Auto) 1.9 % (0.0-3.0) Basophils (%) (Auto) 5.3 % (0.0-2.0) H Sodium Level 141 MMOL/L (136-145) Potassium Level 3.6 MMOL/L (3.5-5.1) Chloride Level 103 MMOL/L (98-107) Carbon Dioxide Level 34 MMOL/L (21-32) H Blood Urea Nitrogen 13 mg/dL (7-18) Creatinine 0.9 MG/DL (0.55-1.30) Estimat Glomerular Filtration Rate > 60 mL/min (>60) Glucose Level 102 MG/DL (74-106) Calcium Level 8.3 MG/DL (8.5-10.1) L Vancomycin Level Trough 15.3 ug/mL (5.0-12.0) H Plan Problems: (1) Abnormal laboratory test result (2) BMI 60.0-69.9, adult (3) Elevated lactic acid level (4) COVID-19 ruled out by laboratory testing (5) Hypokalemia (6) Cellulitis Assessment & Plan: Patient present on admission with bilateral lower extremity cellulitis edema. Has had this in the past. States legs have been increasing in size and causing more discomfort. On admission leukocytosis, lactic acidosis, started on antibiotics. Keeping legs elevated. Still ambulatory. N o nausea vomiting fever chills. 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 (20) Acute blood loss anemia (21) Thrush (22) Morbid obesity (23) Anemia (24) Back pain (25) Cough (26) Diarrhea (27) SOB (shortness of breath) (28) Flank pain (29) Leukocytosis (30) Leukocytosis (31) Post-menopausal bleeding (32) Vaginal bleeding (33) Hypoalbuminemia (34) Sepsis (35) Rectal bleeding (36) Venous stasis (37) Hypertension (38) Pneumonitis (39) Obesity (40) Chronic pain (41) Muscle ache (42) Cellulitis, leg (43) Cellulitis, leg (44) Clostridium difficile colitis (45) Diabetes type 2, controlled (46) Shoulder pain, right (47) Cellulitis of right leg (48) Chronic wound of extremity (49) Flank pain, acute (50) Injury of lower extremity (51) Left leg cellulitis (52) Bilateral cellulitis of lower leg (53) Bilateral lower leg cellulitis (54) Poor intravenous access (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
[2020-03-01 16:00] VITALS: BP 116/83
[2020-03-01 20:00] VITALS: BP 125/83
--- NOTE | 2020-03-01 21:14 | Infectious Diseases Prog Note ---
Assessment/Plan Assessment/Plan ASSESSMENT AND PLAN: 1. bilateral leg/?foot cellulitis, L>R, ? sepsis, leukocytosis - vancomycin and zosyn - day # 3 - clinically better, less cellulitis and swelling - mild leukocytosis still - monitor labs 2. The patient has history of hypertension. Blood pressure treatment per primary care team. 3. Obesity. 4. History of recurrent cellulitis. 5. History of DVT. 6. Factor V Leiden mutation. 7. Gout. 8. Hypokalemia. 9. Skin care protocol per Surgery. 10. Continue treatment per primary care team and consultants. 11. Allergies to sulfa drugs. 12. Social history is negative. 13. Family history is noncontributory. 14. MAR is noted. 15. Case discussed with RN. Subjective Constitutional: Reports: fatigue; Denies: fever HEENT: Denies: congestion Respiratory: Denies: shortness of breath Cardiovascular: Denies: chest pain, dyspnea on exertion Gastrointestinal/Abdominal: Denies: nausea, vomiting, diarrhea Genitourinary: Reports: other - no eaton Neurologic: Denies: headache Psychiatric: Denies: depression Skin: Denies: rash Hematologic: Denies: bleeding Musculoskeletal: Reports: pain - less left leg pain Allergies: Coded Allergies: SULFA (SULFONAMIDE ANTIBIOTICS) (Unverified Allergy, Unknown, 05/02/15) allergy history per Dr. Jones Objective Last 24 Hour Vital Signs Date Time Temp Pulse Resp B/P (MAP) Pulse Ox O2 Delivery O2 Flow Rate FiO2 03/01/20 20:00 97.3 82 20 125/83 (97) 100 03/01/20 16:00 97.2 91 20 116/83 (94) 100 03/01/20 16:00 97.2 03/01/20 12:00 97.9 86 18 127/56 (79) 95 03/01/20 11:32 97.9 03/01/20 09:00 Room Air 03/01/20 08:00 97.9 91 20 116/70 (85) 99 03/01/20 04:00 97.0 80 20 124/52 (76) 95 03/01/20 00:00 98.1 97 20 148/81 (103) 97 Height (Feet): 5 Height (Inches): 9.00 Weight (Pounds): 410 General Appearance: no acute distress HEENT: normocephalic, atraumatic, anicteric Respiratory/Chest: lungs clear, normal breath sounds, no respiratory distress, no accessory muscle use Cardiovascular: normal rate, regular rhythm Abdomen: normal bowel sounds, soft, non tender, no organomegaly, non distended Genitourinary: other - no eaton Extremities: no cyanosis, other - less leg cellulitis noted, less pain, less swelling Skin: no rash 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 COMPARISON: None FINDINGS: Lungs: Unremarkable. No consolidation. Pleural space: Unremarkable. No pneumothorax. Heart: Unremarkable. No cardiomegaly. Mediastinum: Unremarkable. Bones/joints: Unremarkable. IMPRESSION: No acute cardiopulmonary process. Microbiology Date/Time Source Procedure Growth Status 02/27/20 22:30 Nasopharynx SARS-CoV-2 RdRp Gene Assay - Final Complete 02/27/20 22:30 Blood Blood Culture - Preliminary NO GROWTH AFTER 24 HOURS Resulted 02/27/20 22:15 Blood Blood Culture - Preliminary NO GROWTH AFTER 24 HOURS Resulted Laboratory Tests Test 03/01/20 05:07 03/01/20 11:05 White Blood Count 12.8 K/UL (4.8-10.8) H Red Blood Count 3.98 M/UL (4.20-5.40) L Hemoglobin 9.5 G/DL (12.0-16.0) L Hematocrit 30.4 % (37.0-47.0) L Mean Corpuscular Volume 77 FL (80-99) L Mean Corpuscular Hemoglobin 23.9 PG (27.0-31.0) L Mean Corpuscular Hemoglobin Concent 31.3 G/DL (32.0-36.0) L Red Cell Distribution Width 15.1 % (11.6-14.8) H Platelet Count 237 K/UL (150-450) Mean Platelet Volume 5.8 FL (6.5-10.1) L Neutrophils (%) (Auto) 73.5 % (45.0-75.0) Lymphocytes (%) (Auto) 12.3 % (20.0-45.0) L Monocytes (%) (Auto) 7.1 % (1.0-10.0) Eosinophils (%) (Auto) 1.9 % (0.0-3.0) Basophils (%) (Auto) 5.3 % (0.0-2.0) H Sodium Level 141 MMOL/L (136-145) Potassium Level 3.6 MMOL/L (3.5-5.1) Chloride Level 103 MMOL/L (98-107) Carbon Dioxide Level 34 MMOL/L (21-32) H Blood Urea Nitrogen 13 mg/dL (7-18) Creatinine 0.9 MG/DL (0.55-1.30) Estimat Glomerular Filtration Rate > 60 mL/min (>60) Glucose Level 102 MG/DL (74-106) Calcium Level 8.3 MG/DL (8.5-10.1) L Vancomycin Level Trough 15.3 ug/mL (5.0-12.0) H POC Whole Blood Glucose Pending Current Medications Medications (Trade) Dose Ordered Sig/Key Route PRN Reason Start Time Stop Time Status Last Admin Dose Admin Acetaminophen (Tylenol) 500 mg Q4H PRN ORAL Mild Pain (Pain Scale 1-3) 02/28/20 21:45 03/29/20 21:44 02/28/20 21:41 Allopurinol (Zyloprim) 100 mg DAILY ORAL 02/28/20 09:00 03/29/20 08:59 03/01/20 08:06 Apixaban (Eliquis) 5 mg BID ORAL 02/28/20 09:00 05/28/20 08:59 03/01/20 17:05 Dextrose (Dextrose 50%) 25 ml Q30M PRN IV Hypoglycemia 02/28/20 03:45 05/28/20 03:44 Dextrose (Dextrose 50%) 50 ml Q30M PRN IV Hypoglycemia 02/28/20 03:45 05/28/20 03:44 Docusate Sodium (Colace) 100 mg TWICE A DAY ORAL 02/28/20 09:00 03/29/20 08:59 03/01/20 17:05 Hydrochlorothiazide (Hydrodiuril) 25 mg DAILY ORAL 02/28/20 09:00 03/29/20 08:59 03/01/20 08:05 Hydromorphone HCl (Dilaudid) 2 mg Q4H PRN ORAL For Pain 02/29/20 12:30 03/07/20 12:29 03/01/20 20:09 Insulin Aspart (NovoLOG) BEFORE MEALS AND HS SUBQ 02/28/20 06:30 05/28/20 06:29 Metformin HCl (Glucophage) 500 mg TWICE A DAY ORAL 02/28/20 09:00 03/29/20 08:59 03/01/20 17:05 Multivitamins (Multivitamins) 1 tab DAILY ORAL 02/28/20 09:00 03/29/20 08:59 03/01/20 08:06 Oxycodone HCl (Roxicodone) 5 mg Q4H PRN ORAL Moderate Pain (Pain Scale 4-6) 02/28/20 03:30 03/06/20 03:29 Piperacillin Sod/ Tazobactam Sod 3.375 gm/Sodium Chloride 110 ml @ 27.5 mls/hr EVERY 8 HOURS IVPB 02/28/20 22:00 03/04/20 21:59 03/01/20 14:50 Vancomycin HCl (Vanco pharmacy to dose) 1 ea DAILY PRN MISC Per rx protocol 02/28/20 16:45 03/29/20 16:44 Vancomycin/Sodium Chloride 275 ml @ 137.5 mls/ hr Q12HR@0600,1800 IVPB 02/28/20 18:00 03/04/20 17:59 03/01/20 18:50 Slim Javed MD Mar 01, 2020 21:14
[2020-03-02] VITALS (7 sets, daily range): BP systolic 102–149; BP diastolic 57–107
[2020-03-02] MEDS: HYDROmorphone 2mg tab ORAL PRN ×5 (00:26→18:04)
[2020-03-02] MEDS: Vancomycin 1.5gm/NS Premix q24h IVPB SCH ×2 (05:12→18:04)
[2020-03-02] MEDS: NovoLOG Insulin Flexpen SUBQ SCH ×4 (05:43→20:00)
[2020-03-02 06:28] LABS: BASOPHILS % (AUTO) 3.5 % (0.0-2.0); EOSINOPHILS % (AUTO) 1.8 % (0.0-3.0); HEMATOCRIT 30.6 % (37.0-47.0); HEMOGLOBIN 9.5 G/DL (12.0-16.0); LYMPHOCYTES % (AUTO) 11.9 % (20.0-45.0); MEAN CORPUSCULAR VOLUME 77 FL (80-99); NEUTROPHILS % (AUTO) 77.9 % (45.0-75.0); PLATELET COUNT 255 K/UL (150-450); RED BLOOD COUNT 3.97 M/UL (4.20-5.40); RED CELL DISTRIBUTION WIDTH 15.1 % (11.6-14.8); WHITE BLOOD COUNT 13.9 K/UL (4.8-10.8)
[2020-03-02 06:43] LABS: ANION GAP 7 mmol/L (5-15); CALCIUM 8.3 MG/DL (8.5-10.1); CARBON DIOXIDE 29 MMOL/L (21-32); CHLORIDE 102 MMOL/L (98-107); CREATININE 0.9 MG/DL (0.55-1.30); POTASSIUM 3.5 MMOL/L (3.5-5.1); SODIUM 138 MMOL/L (136-145)
[2020-03-02] MEDS: Piperacillin/Tazobactam 3.375 GM in NS 110 ML IVPB SCH ×3 (07:28→22:00)
[2020-03-02 07:33] LABS: BLOOD UREA NITROGEN 14 mg/dL (7-18)
[2020-03-02] MEDS: Allopurinol 100mg Tab ORAL SCH (08:32)
[2020-03-02] MEDS: Docusate 100mg cap ORAL SCH ×2 (08:33→18:04)
[2020-03-02] MEDS: hydroCHLOROthiazide 25mg cap ORAL SCH ×3 (08:33→08:38)
[2020-03-02] MEDS: Eliquis 5mg tablet ORAL SCH ×2 (08:33→18:05)
[2020-03-02] MEDS: metFORMIN 500mg tab ORAL SCH ×2 (08:33→18:05)
--- NOTE | 2020-03-02 11:05 | General Progress Note ---
Subjective Constitutional: Denies: no symptoms, chills, diaphoresis, fever, malaise, weakness, other HEENT: Denies: no symptoms, eye pain, blurred vision, tearing, double vision, ear pain, ear discharge, nose pain, nose congestion, throat pain, throat swelling, mouth pain, mouth swelling, other Cardiovascular: Denies: no symptoms, chest pain, edema, irregular heart rate, lightheadedness, palpitations, syncope, other Respiratory: Denies: no symptoms, cough, orthopnea, shortness of breath, SOB with excertion, SOB at rest, sputum, stridor, wheezing, other Gastrointestinal/Abdominal: Denies: no symptoms, abdomen distended, abdominal pain, black stools, tarry stools, blood in stool, constipated, diarrhea, difficulty swallowing, nausea, poor appetite, poor fluid intake, rectal bleeding, vomiting, other Neurologic/Psychiatric: Denies: no symptoms, anxiety, depressed, emotional problems, headache, numbness, paresthesia, pre-existing deficit, seizure, tingling, tremors, weakness, other Endocrine: Denies: no symptoms, excessive sweating, flushing, intolerance to cold, intolerance to heat, increased hunger, increased thirst, increased urine, unexplained weight gain, unexplained weight loss, other Hematologic/Lymphatic: Denies: no symptoms, anemia, easy bleeding, easy bruising, other Allergies: Coded Allergies: SULFA (SULFONAMIDE ANTIBIOTICS) (Unverified Allergy, Unknown, 05/02/15) allergy history per Dr. Jones Subjective overnight complained of minor chest and shoulder pain. EKG and trops negative. Still complains of paraspinal and back pain. Otherwise feels well. No fevers. Objective Last 24 Hour Vital Signs Date Time Temp Pulse Resp B/P (MAP) Pulse Ox O2 Delivery O2 Flow Rate FiO2 03/02/20 10:00 97.3 89 20 102/64 (77) 95 03/02/20 09:00 Room Air 03/02/20 08:00 97.3 89 20 102/64 (77) 95 03/02/20 04:00 97.5 91 18 134/81 (98) 94 03/02/20 00:00 97.3 85 18 149/95 (113) 93 03/01/20 21:00 Room Air 03/01/20 20:00 97.3 82 20 125/83 (97) 100 03/01/20 16:00 97.2 91 20 116/83 (94) 100 03/01/20 16:00 97.2 03/01/20 12:00 97.9 86 18 127/56 (79) 95 03/01/20 11:32 97.9 Intake and Output 03/01/20 03/02/20 19:00 07:00 Intake Total 1295.0 ml Balance 1295.0 ml Intake Oral 800 ml IV Total 495.0 ml # Voids 4 3 # Bowel Movements 2 1 Laboratory Tests 03/01/20 11:05: POC Whole Blood Glucose [Pending] 03/02/20 05:42: POC Whole Blood Glucose [Pending] 03/02/20 06:00: White Blood Count 13.9H, Red Blood Count 3.97L, Hemoglobin 9.5L, Hematocrit 30.6L, Mean Corpuscular Volume 77L, Mean Corpuscular Hemoglobin 24.0L, Mean Corpuscular Hemoglobin Concent 31.1L, Red Cell Distribution Width 15.1H, Platelet Count 255, Mean Platelet Volume 5.9L, Neutrophils (%) (Auto) 77.9H, Lymphocytes (%) (Auto) 11.9L, Monocytes (%) (Auto) 5.0, Eosinophils (%) (Auto) 1.8, Basophils (%) (Auto) 3.5H, Sodium Level 138, Potassium Level 3.5, Chloride Level 102, Carbon Dioxide Level 29, Anion Gap 7, Blood Urea Nitrogen 14, Creatinine 0.9, Estimat Glomerular Filtration Rate > 60, Glucose Level 115H, Calcium Level 8.3L Height (Feet): 5 Height (Inches): 9.00 Weight (Pounds): 410 General Appearance: no apparent distress, obese EENT: PERRL/EOMI Neck: non-tender, normal inspection Cardiovascular: normal rate, regular rhythm, no JVD Respiratory/Chest: lungs clear, normal breath sounds, no respiratory distress Abdomen: normal bowel sounds, non tender, soft Extremities: normal range of motion, non-tender Edema: 1+ Leg (L), 1+ Leg (R) 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 grossly normal, 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 Skin: other - bilateral LE cellulitis Assessment/Plan Status: stable Assessment/Plan: 59 year old female with multiple medical problems presented from [facility] facility with persistent white count and lactic acidosis #SIRS, ?sepsis #B/L lower extremity cellulitis #Leukocytosis #chronic venous stasis dermatitis -IV antibiotics per ID - Vanc and Zosyn -Follow blood cultures negative thus far -Wound care -Trend WBC -Consult to general surgery - appreciate recs -ID consult appreciated #Lower extremity DVT #Factor V Leiden -Continue with home Eliquis -duplex LE negative for dvt #NID Diabetes mellitus -Patient prefers to continue with Metformin Vs. ISS -Glucose checks qAC qHS -CC diet # Microcytic Anemia shawanda 2/2 JACKELIN - f/u iron studies - monitor H&H #HTN -HCTZ #Severe class III obesity -weight loss counselling DVT: eliquis diso: back to rehab [facility] 1-2 days I spent 41 minutes on this encounter. 21 minutes spent on counselling and care coordination.Plan of care discussed with patient and consultants Caleb Patterson D.O Mar 02, 2020 11:05
[2020-03-02] MEDS ORDERED: Cyclobenzaprine 10mg Tab ORAL SCH ×2 (11:15→21:00)
[2020-03-02] MEDS ORDERED: Heparin1,000 units/500ml Premix(Conc:2 units/ml) IV PRN (19:38)
[2020-03-02] MEDS ORDERED: Lidocaine 1% Plain 30 ml INJ PRN (19:38)
[2020-03-02] MEDS ORDERED: Dyna-Hex 2% Top Sol 2oz TOPIC SCH (20:00)
--- NOTE | 2020-03-02 23:01 | Surgery Progress Note ---
Surgery Progress Note Subjective Symptoms: improved, tolerating diet, passing flatus, pain decreased Objective Last 24 Hour Vital Signs Date Time Temp Pulse Resp B/P (MAP) Pulse Ox O2 Delivery O2 Flow Rate FiO2 03/02/20 21:00 Room Air 03/02/20 20:00 97.7 85 18 129/107 (114) 94 03/02/20 16:00 96.6 85 20 109/57 (74) 95 03/02/20 12:00 97.9 83 20 120/81 (94) 97 03/02/20 10:00 97.3 89 20 102/64 (77) 95 03/02/20 09:00 Room Air 03/02/20 08:00 97.3 89 20 102/64 (77) 95 03/02/20 04:00 97.5 91 18 134/81 (98) 94 03/02/20 00:00 97.3 85 18 149/95 (113) 93 I&O Intake and Output 03/01/20 03/02/20 19:00 07:00 Intake Total 1295.0 ml Balance 1295.0 ml Intake Oral 800 ml IV Total 495.0 ml # Voids 4 3 # Bowel Movements 2 1 Dressing: dry Wound: clean Cardiovascular: RSR Respiratory: clear Abdomen: soft, non-tender, present bowel sounds Extremities: edema, no tenderness, no cyanosis, other Laboratory Tests Test 03/02/20 05:42 03/02/20 06:00 POC Whole Blood Glucose Pending White Blood Count 13.9 K/UL (4.8-10.8) H Red Blood Count 3.97 M/UL (4.20-5.40) L Hemoglobin 9.5 G/DL (12.0-16.0) L Hematocrit 30.6 % (37.0-47.0) L Mean Corpuscular Volume 77 FL (80-99) L Mean Corpuscular Hemoglobin 24.0 PG (27.0-31.0) L Mean Corpuscular Hemoglobin Concent 31.1 G/DL (32.0-36.0) L Red Cell Distribution Width 15.1 % (11.6-14.8) H Platelet Count 255 K/UL (150-450) Mean Platelet Volume 5.9 FL (6.5-10.1) L Neutrophils (%) (Auto) 77.9 % (45.0-75.0) H Lymphocytes (%) (Auto) 11.9 % (20.0-45.0) L Monocytes (%) (Auto) 5.0 % (1.0-10.0) Eosinophils (%) (Auto) 1.8 % (0.0-3.0) Basophils (%) (Auto) 3.5 % (0.0-2.0) H Sodium Level 138 MMOL/L (136-145) Potassium Level 3.5 MMOL/L (3.5-5.1) Chloride Level 102 MMOL/L (98-107) Carbon Dioxide Level 29 MMOL/L (21-32) Anion Gap 7 mmol/L (5-15) Blood Urea Nitrogen 14 mg/dL (7-18) Creatinine 0.9 MG/DL (0.55-1.30) Estimat Glomerular Filtration Rate > 60 mL/min (>60) Glucose Level 115 MG/DL (74-106) H Calcium Level 8.3 MG/DL (8.5-10.1) L Plan Problems: (1) Abnormal laboratory test result (2) BMI 60.0-69.9, adult (3) Elevated lactic acid level (4) COVID-19 ruled out by laboratory testing (5) Hypokalemia (6) Cellulitis Assessment & Plan: Patient present on admission with bilateral lower extremity cellulitis edema. Has had this in the past. States legs have been increasing in size and causing more discomfort. On admission leukocytosis, lactic acidosis, started on antibiotics. Keeping legs elevated. Still ambulatory. No nausea vomiting fever chills. 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 (20) Acute blood loss anemia (21) Thrush (22) Morbid obesity (23) Anemia (24) Back pain (25) Cough (26) Diarrhea (27) SOB (shortness of breath) (28) Flank pain (29) Leukocytosis (30) Leukocytosis (31) Post-menopausal bleeding (32) Vaginal bleeding (33) Hypoalbuminemia (34) Sepsis (35) Rectal bleeding (36) Venous stasis (37) Hypertension (38) Pneumonitis (39) Obesity (40) Chronic pain (41) Muscle ache (42) Cellulitis, leg (43) Cellulitis, leg (44) Clostridium difficile colitis (45) Diabetes type 2, controlled (46) Shoulder pain, right (47) Cellulitis of right leg (48) Chronic wound of extremity (49) Flank pain, acute (50) Injury of lower extremity (51) Left leg cellulitis (52) Bilateral cellulitis of lower leg (53) Bilateral lower leg cellulitis (54) Poor intravenous access (55) DVT, recurrent, lower extremity, acute and chronic (56) Deep vein thrombosis (DVT) of left lower extremity (57) Acute DVT of LLE (58) lives on own at home (59) lateral posterior left leg superficial skin breakdown ulcer (60) abdominal wall swelling (61) leg pain (62) probable abscess Chuy Damian Mar 02, 2020 23:01
[2020-03-03] VITALS: BP 123/90
[2020-03-03 04:00] VITALS: BP 151/77
[2020-03-03] MEDS: HYDROmorphone 2mg tab ORAL PRN ×4 (04:00→17:19)
[2020-03-03] MEDS: Piperacillin/Tazobactam 3.375 GM in NS 110 ML IVPB SCH ×2 (04:43→14:42)
[2020-03-03] MEDS: Vancomycin 1.5gm/NS Premix q24h IVPB SCH ×2 (04:43→17:19)
[2020-03-03] MEDS: NovoLOG Insulin Flexpen SUBQ SCH ×3 (05:33→16:30)
[2020-03-03 06:29] LABS: EOSINOPHILS % (AUTO) 2.1 % (0.0-3.0); HEMATOCRIT 30.2 % (37.0-47.0); HEMOGLOBIN 9.2 G/DL (12.0-16.0); LYMPHOCYTES % (AUTO) 11.2 % (20.0-45.0); MEAN CORPUSCULAR VOLUME 81 FL (80-99); NEUTROPHILS % (AUTO) 80.7 % (45.0-75.0); PLATELET COUNT 234 K/UL (150-450); RED BLOOD COUNT 3.75 M/UL (4.20-5.40); RED CELL DISTRIBUTION WIDTH 16.6 % (11.6-14.8); WHITE BLOOD COUNT 13.1 K/UL (4.8-10.8)
[2020-03-03 06:48] LABS: % IRON SATURATION 7 % (15-50); IRON 25 ug/dL (50-175); TOTAL IRON BINDING CAPACITY 336 ug/dL (250-450)
[2020-03-03 07:01] LABS: ANION GAP 6 mmol/L (5-15); BLOOD UREA NITROGEN 11 mg/dL (7-18); CALCIUM 8.3 MG/DL (8.5-10.1); CARBON DIOXIDE 30 MMOL/L (21-32); CHLORIDE 103 MMOL/L (98-107); CREATININE 0.8 MG/DL (0.55-1.30); FERRITIN 15 NG/ML (8-388); PHOSPHORUS 4.4 MG/DL (2.5-4.9); POTASSIUM 3.6 MMOL/L (3.5-5.1); SODIUM 139 MMOL/L (136-145)
[2020-03-03 08:00] VITALS: BP 129/80
[2020-03-03] MEDS: hydroCHLOROthiazide 25mg cap ORAL SCH (08:09)
[2020-03-03] MEDS: Eliquis 5mg tablet ORAL SCH ×2 (08:10→17:18)
[2020-03-03] MEDS: Docusate 100mg cap ORAL SCH ×2 (08:10→17:19)
[2020-03-03] MEDS: Allopurinol 100mg Tab ORAL SCH (08:10)
[2020-03-03] MEDS: metFORMIN 500mg tab ORAL SCH ×2 (08:10→17:19)
[2020-03-03] MEDS ORDERED: Sennosides 8.6mg tab ORAL PRN (10:15)
[2020-03-03] MEDS ORDERED: Docusate 100mg cap ORAL PRN (10:15)
--- NOTE | 2020-03-03 10:18 | General Progress Note ---
Subjective Constitutional: Denies: no symptoms, chills, diaphoresis, fever, malaise, weakness, other HEENT: Denies: no symptoms, eye pain, blurred vision, tearing, double vision, ear pain, ear discharge, nose pain, nose congestion, throat pain, throat swelling, mouth pain, mouth swelling, other Cardiovascular: Denies: no symptoms, chest pain, edema, irregular heart rate, lightheadedness, palpitations, syncope, other Respiratory: Denies: no symptoms, cough, orthopnea, shortness of breath, SOB with excertion, SOB at rest, sputum, stridor, wheezing, other Gastrointestinal/Abdominal: Denies: no symptoms, abdomen distended, abdominal pain, black stools, tarry stools, blood in stool, constipated, diarrhea, difficulty swallowing, nausea, poor appetite, poor fluid intake, rectal bleeding, vomiting, other Genitourinary: Denies: no symptoms, burning, discharge, frequency, flank pain, hematuria, incontinence, pain, urgency, other Neurologic/Psychiatric: Denies: no symptoms, anxiety, depressed, emotional problems, headache, numbness, paresthesia, pre-existing deficit, seizure, tingling, tremors, weakness, other Endocrine: Denies: no symptoms, excessive sweating, flushing, intolerance to cold, intolerance to heat, increased hunger, increased thirst, increased urine, unexplained weight gain, unexplained weight loss, other Hematologic/Lymphatic: Denies: no symptoms, anemia, easy bleeding, easy bruising, other Allergies: Coded Allergies: SULFA (SULFONAMIDE ANTIBIOTICS) (Unverified Allergy, Unknown, 05/02/15) allergy history per Dr. Jones Subjective no acute events overngiht. Patient shoulder pain much improved with muscle relaxer. No fevers. Feels better. Objective Last 24 Hour Vital Signs Date Time Temp Pulse Resp B/P (MAP) Pulse Ox O2 Delivery O2 Flow Rate FiO2 03/03/20 09:00 Room Air 03/03/20 08:00 97.9 90 20 129/80 (96) 95 03/03/20 04:30 98.8 03/03/20 04:00 98.1 96 20 151/77 (101) 95 03/03/20 00:00 97.5 88 18 123/90 (101) 93 03/02/20 21:00 Room Air 03/02/20 20:00 97.7 85 18 129/107 (114) 94 03/02/20 16:00 96.6 85 20 109/57 (74) 95 03/02/20 12:00 97.9 83 20 120/81 (94) 97 Intake and Output 03/02/20 03/03/20 19:00 07:00 Intake Total 840 ml Balance 840 ml Intake Oral 840 ml # Voids 4 4 # Bowel Movements 1 Laboratory Tests 03/03/20 05:00: POC Whole Blood Glucose 110H 03/03/20 06:05: White Blood Count 13.1H, Red Blood Count 3.75L, Hemoglobin 9.2L, Hematocrit 30.2L, Mean Corpuscular Volume 81, Mean Corpuscular Hemoglobin 24.5L, Mean Corpuscular Hemoglobin Concent 30.4L, Red Cell Distribution Width 16.6H, Platelet Count 234, Mean Platelet Volume 5.9L, Neutrophils (%) (Auto) 80.7H, Lymphocytes (%) (Auto) 11.2L, Monocytes (%) (Auto) 5.0, Eosinophils (%) (Auto) 2.1, Basophils (%) (Auto) 1.0, Sodium Level 139, Potassium Level 3.6, Chloride Level 103, Carbon Dioxide Level 30, Anion Gap 6, Blood Urea Nitrogen 11, Creatinine 0.8, Estimat Glomerular Filtration Rate > 60, Glucose Level 111H, Calcium Level 8.3L, Phosphorus Level 4.4, Magnesium Level 1.9, Iron Level 25L, Total Iron Binding Capacity 336, Percent Iron Saturation 7L, Unsaturated Iron Binding 311, Ferritin 15 Height (Feet): 5 Height (Inches): 9.00 Weight (Pounds): 410 General Appearance: no apparent distress, morbidly obese, alert oriented x3 EENT: PERRL/EOMI Neck: normal inspection Cardiovascular: normal rate, regular rhythm, regularly irregular Respiratory/Chest: lungs clear, normal breath sounds, no respiratory distress Abdomen: normal bowel sounds, non tender, soft Extremities: normal range of motion, other - bilateral LE cellulitis, chronic venous stasis 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, alert, 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 Assessment/Plan Status: stable Assessment/Plan: 59 year old female with multiple medical problems presented from [facility] facility with persistent white count and lactic acidosis #SIRS, ?sepsis #B/L lower extremity cellulitis #Leukocytosis #chronic venous stasis dermatitis -IV antibiotics per ID - Vanc and Zosyn -Follow blood cultures negative thus far -Wound care -Trend WBC - leukocytosis persist; denies any fevers, sob, cough, abdominal pain, diarrhea, constipation, dysuria -Consult to general surgery - appreciate recs -ID consult appreciated #Lower extremity DVT #Factor V Leiden -Continue with home Eliquis -duplex LE negative for dvt #NID Diabetes mellitus -Patient prefers to continue with Metformin Vs. ISS -Glucose checks qAC qHS -CC diet # Microcytic Anemia [facility] [place] 2/2 JACKELIN - will start iron supplementation - BM regimen prn - monitor H&H #HTN -HCTZ #Severe class III obesity -weight loss counselling DVT: eliquis diso: back to rehab [facility] 1-2 days I spent 31 minutes on this encounter. 21 minutes spent on counselling and care coordination.Plan of care discussed with patient and consultants TIme of note may not reflect time patient was seen. Caleb Patterson D.O Mar 03, 2020 10:17
[2020-03-03] MEDS: Ferrous Gluconate 324 MG TAB ORAL SCH ×2 (10:30→17:19)
[2020-03-03 12:00] VITALS: BP 127/82
--- NOTE | 2020-03-03 13:22 | Surgery Progress Note ---
Surgery Progress Note Subjective Additional Comments improve no n/v states edema less feels better Objective Last 24 Hour Vital Signs Date Time Temp Pulse Resp B/P (MAP) Pulse Ox O2 Delivery O2 Flow Rate FiO2 03/03/20 12:00 96.4 83 20 127/82 (97) 95 03/03/20 09:00 Room Air 03/03/20 08:00 97.9 90 20 129/80 (96) 95 03/03/20 04:30 98.8 03/03/20 04:00 98.1 96 20 151/77 (101) 95 03/03/20 00:00 97.5 88 18 123/90 (101) 93 03/02/20 21:00 Room Air 03/02/20 20:00 97.7 85 18 129/107 (114) 94 03/02/20 16:00 96.6 85 20 109/57 (74) 95 I&O Intake and Output 03/02/20 03/03/20 19:00 07:00 Intake Total 840 ml Balance 840 ml Intake Oral 840 ml # Voids 4 4 # Bowel Movements 1 Dressing: dry Wound: clean Cardiovascular: RSR Respiratory: clear Abdomen: soft, flat, non-tender, present bowel sounds Extremities: edema, no tenderness, no cyanosis Laboratory Tests Test 03/03/20 05:00 03/03/20 06:05 03/03/20 11:48 POC Whole Blood Glucose 110 MG/DL (74-106) H 111 MG/DL (74-106) H White Blood Count 13.1 K/UL (4.8-10.8) H Red Blood Count 3.75 M/UL (4.20-5.40) L Hemoglobin 9.2 G/DL (12.0-16.0) L Hematocrit 30.2 % (37.0-47.0) L Mean Corpuscular Volume 81 FL (80-99) Mean Corpuscular Hemoglobin 24.5 PG (27.0-31.0) L Mean Corpuscular Hemoglobin Concent 30.4 G/DL (32.0-36.0) L Red Cell Distribution Width 16.6 % (11.6-14.8) H Platelet Count 234 K/UL (150-450) Mean Platelet Volume 5.9 FL (6.5-10.1) L Neutrophils (%) (Auto) 80.7 % (45.0-75.0) H Lymphocytes (%) (Auto) 11.2 % (20.0-45.0) L Monocytes (%) (Auto) 5.0 % (1.0-10.0) Eosinophils (%) (Auto) 2.1 % (0.0-3.0) Basophils (%) (Auto) 1.0 % (0.0-2.0) Sodium Level 139 MMOL/L (136-145) Potassium Level 3.6 MMOL/L (3.5-5.1) Chloride Level 103 MMOL/L (98-107) Carbon Dioxide Level 30 MMOL/L (21-32) Anion Gap 6 mmol/L (5-15) Blood Urea Nitrogen 11 mg/dL (7-18) Creatinine 0.8 MG/DL (0.55-1.30) Estimat Glomerular Filtration Rate > 60 mL/min (>60) Glucose Level 111 MG/DL (74-106) H Calcium Level 8.3 MG/DL (8.5-10.1) L Phosphorus Level 4.4 MG/DL (2.5-4.9) Magnesium Level 1.9 MG/DL (1.8-2.4) Iron Level 25 ug/dL (50-175) L Total Iron Binding Capacity 336 ug/dL (250-450) Percent Iron Saturation 7 % (15-50) L Unsaturated Iron Binding 311 ug/dL (112-346) Ferritin 15 NG/ML (8-388) Plan Problems: (1) Abnormal laboratory test result (2) BMI 60.0-69.9, adult (3) Elevated lactic acid level (4) COVID-19 ruled out by laboratory testing (5) Hypokalemia (6) Cellulitis Assessment & Plan: Patient present on admission with bilateral lower extremity cellulitis edema. Has had this in the past. States legs have been increasing in size and causing more discomfort. On admission leukocytosis, lactic acidosis, started on antibiotics. Keeping legs elevated. Still ambulatory. No nausea vomiting fever chills. 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 (20) Acute blood loss anemia (21) Thrush (22) Morbid obesity (23) Anemia (24) Back pain (25) Cough (26) Diarrhea (27) SOB (shortness of breath) (28) Flank pain (29) Leukocytosis (30) Leukocytosis (31) Post-menopausal bleeding (32) Vaginal bleeding (33) Hypoalbuminemia (34) Sepsis (35) Rectal bleeding (36) Venous stasis (37) Hypertension (38) Pneumonitis (39) Obesity (40) Chronic pain (41) Muscle ache (42) Cellulitis, leg (43) Cellulitis, leg (44) Clostridium difficile colitis (45) Diabetes type 2, controlled (46) Shoulder pain, right (47) Cellulitis of right leg (48) Chronic wound of extremity (49) Flank pain, acute (50) Injury of lower extremity (51) Left leg cellulitis (52) Bilateral cellulitis of lower leg (53) Bilateral lower leg cellulitis (54) Poor intravenous access (55) DVT, recurrent, lower extremity, acute and chronic (56) Deep vein thrombosis (DVT) of left lower extremity (57) Acute DVT of LLE (58) lives on own at home (59) lateral posterior left leg superficial skin breakdown ulcer (60) abdominal wall swelling (61) leg pain (62) probable abscess Chuy Damian Mar 03, 2020 13:22
--- NOTE | 2020-03-03 14:08 | Pre-Procedure Note/Attestation ---
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 Mar 03, 2020 14:08
--- NOTE | 2020-03-03 14:15 | Diagnostic Imaging Report ---
Indications: Cellulitis. Needs IV access Technique: Procedural timeout performed. Ultrasound confirms patent compressible left basilic vein. Total sterile technique, including sterile probe cover and sterile gel, sterile gloves, hand hygiene, hat, mask,, sterile gown, large sterile drape, and preparation with 2% chlorhexidine utilized. Local anesthesia with 1% lidocaine. Under real-time ultrasound guidance, puncture left basilic vein using 21-gauge needle, passage 0.018 guidewire, exchange for 4.5 Barbadian peel-away sheath. 4 Barbadian single lumen PICC cut to 52 cm.) Advanced over the wire. Peel-away sheath and guidewire removed. Catheter fixed to the skin. Both catheter ports aspirated and flushed. Patient tolerated procedure well, without immediate complication. Using demonstrate stability catheter at the level of the cavoatrial junction. Total fluoroscopy time 32.6 seconds. Total fluoroscopy dose 20.24 mGy. IMPRESSION: Successful placement of PICC line the left basilic vein. Catheter cleared for use.
--- NOTE | 2020-03-03 14:37 | Infectious Diseases Prog Note ---
Assessment/Plan Assessment/Plan ASSESSMENT AND PLAN: 1. bilateral leg/?foot cellulitis, L>R, ? sepsis, leukocytosis - vancomycin and zosyn - day # 4 - plan on 10 days treatment - can use meropenem plus vancomycin at [facility] for less frequent dosing - clinically better, less cellulitis and swelling - mild leukocytosis - monitor labs - cleared for discharge from ID standpoint - monitor labs as outpatient - d/w Dr. Patterson 2. The patient has history of hypertension. Blood pressure treatment per primary care team. 3. Obesity. 4. History of recurrent cellulitis. 5. History of DVT. 6. Factor V Leiden mutation. 7. Gout. 8. Hypokalemia. 9. Skin care protocol per Surgery. 10. Continue treatment per primary care team and consultants. 11. Allergies to sulfa drugs. 12. Social history is negative. 13. Family history is noncontributory. 14. MAR is noted. 15. Case discussed with RN. Subjective Constitutional: Denies: fever HEENT: Denies: congestion Respiratory: Denies: shortness of breath Cardiovascular: Denies: chest pain Gastrointestinal/Abdominal: Denies: nausea Neurologic: Denies: headache Psychiatric: Denies: depression Skin: Denies: rash Hematologic: Denies: bleeding Musculoskeletal: Reports: pain - less leg pain Allergies: Coded Allergies: SULFA (SULFONAMIDE ANTIBIOTICS) (Unverified Allergy, Unknown, 05/02/15) allergy history per Dr. Jones Objective Last 24 Hour Vital Signs Date Time Temp Pulse Resp B/P (MAP) Pulse Ox O2 Delivery O2 Flow Rate FiO2 03/03/20 12:00 96.4 83 20 127/82 (97) 95 03/03/20 09:00 Room Air 03/03/20 08:00 97.9 90 20 129/80 (96) 95 03/03/20 04:30 98.8 03/03/20 04:00 98.1 96 20 151/77 (101) 95 03/03/20 00:00 97.5 88 18 123/90 (101) 93 03/02/20 21:00 Room Air 03/02/20 20:00 97.7 85 18 129/107 (114) 94 03/02/20 16:00 96.6 85 20 109/57 (74) 95 Height (Feet): 5 Height (Inches): 9.00 Weight (Pounds): 410 General Appearance: no acute distress HEENT: normocephalic, atraumatic, anicteric Respiratory/Chest: lungs clear, normal breath sounds, no respiratory distress Cardiovascular: normal rate, regular rhythm Abdomen: normal bowel sounds, soft, non tender, no organomegaly Genitourinary: other - no eaton Extremities: no cyanosis, other - less swelling and pain Skin: no rash 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 COMPARISON: None FINDINGS: Lungs: Unremarkable. No consolidation. Pleural space: Unremarkable. No pneumothorax. Heart: Unremarkable. No cardiomegaly. Mediastinum: Unremarkable. Bones/joints: Unremarkable. IMPRESSION: No acute cardiopulmonary process. Microbiology Date/Time Source Procedure Growth Status 02/27/20 22:30 Nasopharynx SARS-CoV-2 RdRp Gene Assay - Final Complete 02/27/20 22:30 Blood Blood Culture - Preliminary NO GROWTH AFTER 4 DAYS Resulted Laboratory Tests Test 03/03/20 05:00 03/03/20 06:05 03/03/20 11:48 POC Whole Blood Glucose 110 MG/DL (74-106) H 111 MG/DL (74-106) H White Blood Count 13.1 K/UL (4.8-10.8) H Red Blood Count 3.75 M/UL (4.20-5.40) L Hemoglobin 9.2 G/DL (12.0-16.0) L Hematocrit 30.2 % (37.0-47.0) L Mean Corpuscular Volume 81 FL (80-99) Mean Corpuscular Hemoglobin 24.5 PG (27.0-31.0) L Mean Corpuscular Hemoglobin Concent 30.4 G/DL (32.0-36.0) L Red Cell Distribution Width 16.6 % (11.6-14.8) H Platelet Count 234 K/UL (150-450) Mean Platelet Volume 5.9 FL (6.5-10.1) L Neutrophils (%) (Auto) 80.7 % (45.0-75.0) H Lymphocytes (%) (Auto) 11.2 % (20.0-45.0) L Monocytes (%) (Auto) 5.0 % (1.0-10.0) Eosinophils (%) (Auto) 2.1 % (0.0-3.0) Basophils (%) (Auto) 1.0 % (0.0-2.0) Sodium Level 139 MMOL/L (136-145) Potassium Level 3.6 MMOL/L (3.5-5.1) Chloride Level 103 MMOL/L (98-107) Carbon Dioxide Level 30 MMOL/L (21-32) Anion Gap 6 mmol/L (5-15) Blood Urea Nitrogen 11 mg/dL (7-18) Creatinine 0.8 MG/DL (0.55-1.30) Estimat Glomerular Filtration Rate > 60 mL/min (>60) Glucose Level 111 MG/DL (74-106) H Calcium Level 8.3 MG/DL (8.5-10.1) L Phosphorus Level 4.4 MG/DL (2.5-4.9) Magnesium Level 1.9 MG/DL (1.8-2.4) Iron Level 25 ug/dL (50-175) L Total Iron Binding Capacity 336 ug/dL (250-450) Percent Iron Saturation 7 % (15-50) L Unsaturated Iron Binding 311 ug/dL (112-346) Ferritin 15 NG/ML (8-388) Current Medications Medications (Trade) Dose Ordered Sig/Key Route PRN Reason Start Time Stop Time Status Last Admin Dose Admin Acetaminophen (Tylenol) 500 mg Q4H PRN ORAL Mild Pain (Pain Scale 1-3) 02/28/20 21:45 03/29/20 21:44 02/28/20 21:41 Allopurinol (Zyloprim) 100 mg DAILY ORAL 02/28/20 09:00 03/29/20 08:59 03/03/20 08:10 Apixaban (Eliquis) 5 mg BID ORAL 02/28/20 09:00 05/28/20 08:59 03/03/20 08:10 Chlorhexidine Gluconate (Priti-Hex 2%) 1 applic DAILY@1999 TOPIC 03/02/20 20:00 05/31/20 19:59 Cyclobenzaprine HCl (Flexeril) 10 mg BEDTIME ORAL 03/02/20 21:00 03/09/20 20:59 03/02/20 20:18 Dextrose (Dextrose 50%) 25 ml Q30M PRN IV Hypoglycemia 02/28/20 03:45 05/28/20 03:44 Dextrose (Dextrose 50%) 50 ml Q30M PRN IV Hypoglycemia 02/28/20 03:45 05/28/20 03:44 Docusate Sodium (Colace) 100 mg TID PRN ORAL Constipation 03/03/20 10:15 04/02/20 10:14 Docusate Sodium (Colace) 100 mg TWICE A DAY ORAL 02/28/20 09:00 03/29/20 08:59 03/03/20 08:10 Ferrous Gluconate (Fergon) 300 mg BID ORAL 03/03/20 10:30 06/01/20 10:29 03/03/20 10:30 Heparin Sodium/ Sodium Chloride (Heparin 1000 units/500ml Premix) 1,000 unit ONCE PRN IV PICC 03/02/20 19:38 03/03/20 23:59 Hydrochlorothiazide (Hydrodiuril) 25 mg DAILY ORAL 02/28/20 09:00 03/29/20 08:59 03/03/20 08:09 Hydromorphone HCl (Dilaudid) 2 mg Q4H PRN ORAL For Pain 02/29/20 12:30 03/07/20 12:29 03/03/20 13:02 Insulin Aspart (NovoLOG) BEFORE MEALS AND HS SUBQ 02/28/20 06:30 05/28/20 06:29 Lidocaine HCl (Xylocaine 1% 30ml) 30 ml ONCE PRN INJ PICC 03/02/20 19:38 03/03/20 23:59 Metformin HCl (Glucophage) 500 mg TWICE A DAY ORAL 02/28/20 09:00 03/29/20 08:59 03/03/20 08:10 Multivitamins (Multivitamins) 1 tab DAILY ORAL 02/28/20 09:00 03/29/20 08:59 03/03/20 08:10 Oxycodone HCl (Roxicodone) 5 mg Q4H PRN ORAL Moderate Pain (Pain Scale 4-6) 02/28/20 03:30 03/06/20 03:29 Piperacillin Sod/ Tazobactam Sod 3.375 gm/Sodium Chloride 110 ml @ 27.5 mls/hr EVERY 8 HOURS IVPB 02/28/20 22:00 03/04/20 21:59 03/02/20 13:30 Sennosides (Senokot) 8.6 mg DAILYPRN PRN ORAL Constipation 03/03/20 10:15 04/02/20 10:14 Vancomycin HCl (Vanco pharmacy to dose) 1 ea DAILY PRN MISC Per rx protocol 02/28/20 16:45 03/29/20 16:44 Vancomycin/Sodium Chloride 275 ml @ 137.5 mls/ hr Q12HR@0600,1800 IVPB 02/28/20 18:00 03/04/20 17:59 03/02/20 18:04 Slim Javed MD Mar 03, 2020 14:37
[2020-03-03 16:00] VITALS: BP 108/77
[2020-03-03] MEDS ORDERED: COLACE100 MG ORAL (16:00)
[2020-03-03] MEDS ORDERED: FERGON240 MG ORAL (16:00)
[2020-03-03] MEDS ORDERED: SENNA8.6 M2 ORAL (16:00)
[2020-03-03] MEDS ORDERED: VANCOMYCIN HCL1 G1 IV (16:00)
[2020-03-03] MEDS ORDERED: ZOSYN 3.373.375 GM/5 IV (16:00)
--- NOTE | 2020-03-03 16:13 | Discharge Summary ---
Discharge Summary Hospital Course Date of Admission Feb 27, 2020 at 22:00 Date of Discharge Admitting Diagnosis cellulitis HPI Marielle Mccormack is a 59 year old female who was admitted on Feb 27, 2020 at 22:00 for Cellulitis Hospital Course 59 year old female with multiple medical problems presented from SNF facility with persistent white count and lactic acidosis and subsequently found to have bilateral LE cellulitis. Upon evaluation her LE were warm, slightly tender with mild edema. She was started on broad spec coverage which improved her inflammation and swelling. BC negative. Her leukocytosis remained at 12-13. She otherwise remained afebrile with no hemodynamic compromise. Her IV was difficult to attain and therefore PICC line was placed. After further discussion today with Dr. Gannon it was agreed that she is stable for discharge today back to [facility]. #B/L lower extremity cellulitis #Leukocytosis - chronic #chronic venous stasis dermatitis -to continue Vanc and Zosyn for a total of 7 more days as agreed upon with Dr. Gannon, ID - continue wound care -ID consult appreciated #Hx of Lower extremity DVT #Factor V Leiden -Continue with home Eliquis -duplex LE negative for dvt #NID Diabetes mellitus - continue home metformin # Microcytic Anemia likely 2/2 JACKELIN - will start iron supplementation 300 mg BID - will start Bowel regimen prn for constipation #HTN -continue home HCTZ #Severe class III obesity -weight loss counselling I spent 41 minutes on this encounter. 21 minutes spent on counselling and care coordination.Plan of care discussed with patient and consultants TIme of note may not reflect time patient was seen. Discharge Discharge Vital Signs Last Vital Signs Date Time Temp Pulse Resp B/P (MAP) Pulse Ox O2 Delivery O2 Flow Rate FiO2 03/03/20 12:00 96.4 83 20 127/82 (97) 95 03/03/20 09:00 Room Air Discharge Disposition Patient was discharged to Caleb Patterson D.O Mar 03, 2020 16:13
== END 2020-03-03 20:15 | DRG 872 ==
LOC: EDBD 20:54 → EMR 21:25 → 4E 22:00 → EDBEDREQ 23:12
PROC: 02HV33Z Insertion of Infusion Device into Superior Vena Cava, Percutaneous Approach (ICD-10-PCS; principal; 2020-03-03)
DX: A41.9 Sepsis, unspecified organism (principal); L03.116 Cellulitis of left lower limb; Z68.44 Body mass index [BMI] 60.0-69.9, adult; D68.8 Other specified coagulation defects; D68.51 Activated protein C resistance; L03.115 Cellulitis of right lower limb; I82.4Z3 Acute embolism and thrombosis of unspecified deep veins of distal lower extremity, bilateral; E66.01 Morbid (severe) obesity due to excess calories; E87.6 Hypokalemia; E11.9 Type 2 diabetes mellitus without complications; I10 Essential (primary) hypertension; M10.9 Gout, unspecified; I87.2 Venous insufficiency (chronic) (peripheral); D50.9 Iron deficiency anemia, unspecified; Z88.2 Allergy status to sulfonamides; F29 Unspecified psychosis not due to a substance or known physiological condition
CPT/HCPCS: 36415; 36569; 71045; 76937; 80048; 80053; 80202; 81003; 82550; 82553; 82728; 82962; 83036; 83540; 83550; 83605; 83615; 83690; 83735; 83880; 84100; 84484; 85025; 85610; 85730; 86140; 87040; 93005; 93970; 96361; 96365; 96367; 96375; 99285; J1815; J2405; J7030; J8499; U0002

== ENCOUNTER 2020-07-16 23:03 | Inpatient (IN) | payer MEDICARE, OTHER ==
[~2020-07-16] VITALS: Ht 185.4 cm; Wt 190.5 kg
[~2020-07-16 23:03] MED LIST changes: +FERGON240 MG ORAL; +HYDROCHLOROTHIA50 MG ORAL; +MAGNESIUM OXID400 M1 ORAL; +POTASSIUM CHLO20 ME1 ORAL; +PRO-STAT LIQUID30 ML ORAL; +SENNA8.6 M2 ORAL; +VANCOMYCIN HCL1 G1 IV; +VANCOMYCIN500 MG/100 IV; +VITAMIN D250 MCG PO; +ZOSYN 3.373.375 GM/5 IV
--- NOTE | 2020-07-16 23:26 | Emergency Room Report ---
History of Present Illness General Chief Complaint: Vaginal Source: Patient Present Illness HPI This is a 59-year-old female with a history of morbid obesity with a BMI of 55. She also has a history of nonhealing left lower extremity/ankle ulcer. She has recurrent cellulitis. She also has a history of recurrent DVT and pulmonary embolism. She was on Eliquis. She presents with chief complaint of cellulitis to lower extremity with bleeding from her PICC line and vaginal bleeding. She was just started on Zosyn and vancomycin. Her wound culture grew out E. coli and staph aureus in the past. After starting the Zosyn and vancomycin, she had bleeding from the PICC line and also vaginal bleeding. She denies any pain other than over her lower extremity. No fever chills but no nausea no vomiting. Her Eliquis was stopped today. She had a dose of vancomycin and Zosyn at around 8 PM. Bleeding around her PICC line is also controlled. She denies any chest pain or shortness of breath. No fever or chills. Allergies: Coded Allergies: SULFA (SULFONAMIDE ANTIBIOTICS) (Unverified Allergy, Unknown, 05/02/15) allergy history per Dr. 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 Patient History Past Medical History: see triage record, old chart reviewed, HTN Past Surgical History: other Pertinent Family History: none Social History: Denies: smoking Now: No Immunizations: other Reviewed Nursing Documentation: PMH: Agreed; PSxH: Agreed Nursing Documentation-PMH Hx Hypertension: Yes Hx Asthma: Yes Hx Diabetes: Yes Hx Cancer: No Hx Gastrointestinal Problems: Yes Hx Neurological Problems: Yes Hx Cerebrovascular Accident: Yes Hx Weakness: Yes - BILATERAL LOWER EXTREMITIES Review of Systems Eye: Denies: eye pain, blurred vision ENT: Denies: ear pain, nose congestion, throat swelling Respiratory: Denies: cough, shortness of breath Cardiovascular: Denies: chest pain, palpitations Gastrointestinal: Denies: abdominal pain, diarrhea, nausea, vomiting Genitourinary: Reports: vag bleed/dc Musculoskeletal: Denies: back pain, joint pain Skin: Denies: rash Neurological: Denies: headache, numbness Endocrine: Denies: increased thirst, increased urine Hematologic/Lymphatic: Denies: easy bruising All Other Systems: negative except mentioned in HPI Physical Exam Vital Signs Date Time Temp Pulse Resp B/P (MAP) Pulse Ox O2 Delivery O2 Flow Rate FiO2 07/16/20 23:03 97.3 84 18 124/76 (92) 93 Room Air Vitals unremarkable Sp02 EP Interpretation: reviewed, normal General Appearance: well appearing, no apparent distress, alert, obese Head: normocephalic, atraumatic Eyes: bilateral eye PERRL, bilateral eye EOMI ENT: hearing grossly normal, normal pharynx Neck: full range of motion, supple, no meningismus Respiratory: chest non-tender, lungs clear, normal breath sounds Cardiovascular #1: regular rate, rhythm, no murmur Gastrointestinal: normal bowel sounds, non tender, no mass, no organomegaly, no bruit, non-distended Musculoskeletal: back normal, normal range of motion, other - Right arm with PICC line. There is old blood underneath the Tegaderm but no active bleeding. Left lower extremity with several small ulcers. No drainage. Her lower extremity is warm to the touch. Psychiatric: mood/affect normal Medical Decision Making Diagnostic Impression: Primary Impression: Left leg cellulitis Additional Impressions: Vaginal bleeding Chronic wound of extremity Morbid obesity ER Course This patient presents with recurrent cellulitis of her lower extremity, mostly left lower extremity. She received a dose of Zosyn and vancomycin already. We will hold off on giving any more right now. Her bleeding is probably secondary to hypocoagulable state from her Eliquis. This probably worsened by the antibiotics. No active bleeding right now. Labs unremarkable. Will admit for IV antibiotics and monitoring. Last Vital Signs Date Time Temp Pulse Resp B/P (MAP) Pulse Ox O2 Delivery O2 Flow Rate FiO2 07/16/20 23:03 97.3 84 18 124/76 (92) 93 Room Air Status: improved Disposition: ADMITTED INPATIENT Condition: Serious Referrals: Dlaia Holm MD (PCP) Edmond New MD Jul 16, 2020 23:26
[2020-07-16 23:48] LABS: EOSINOPHILS % (AUTO) 2.4 % (0.0-3.0); HEMATOCRIT 37.7 % (37.0-47.0); LYMPHOCYTES % (AUTO) 13.8 % (20.0-45.0); MEAN CORPUSCULAR VOLUME 84 FL (80-99); MONOCYTES % (AUTO) 7.1 % (1.0-10.0); NEUTROPHILS % (AUTO) 75.8 % (45.0-75.0); PLATELET COUNT 262 K/UL (150-450); WHITE BLOOD COUNT 12.8 K/UL (4.8-10.8)
[2020-07-16 23:54] VITALS: BP 124/76
--- NOTE | 2020-07-16 23:56 | NUR ---
pt aox3. c/o vaginal bleeding. bleeding controlled at this time. v/s stable. pt in no distress. will continue to monitor pt closely
--- NOTE | 2020-07-16 23:57 | NUR ---
18 g iv to lfa established. labs collected and sent to lab. pt connected to monitor.
[2020-07-16 23:58] LABS: ANION GAP 7 mmol/L (5-15); BLOOD UREA NITROGEN 23 mg/dL (7-18); CALCIUM 9.4 MG/DL (8.5-10.1); CARBON DIOXIDE 31 MMOL/L (21-32); CHLORIDE 99 MMOL/L (98-107); POTASSIUM 3.6 MMOL/L (3.5-5.1); SODIUM 137 MMOL/L (136-145)
[2020-07-17] VITALS (7 sets, daily range): BP systolic 105–144; BP diastolic 61–109
--- NOTE | 2020-07-17 00:36 | NUR ---
report given to dasia ruby
--- NOTE | 2020-07-17 01:50 | NUR ---
NURSE NOTES: Patient admitted to Med Surg 4E from ER. Report from MARY Tanner. Patient is ANOx4. VSS. No C/O pain at this time. On room air with no signs of distress or SOB. Bilat legs edematous with open sores located on the lateral side of the left lower extremity. Dressings clean dry and intact. Otherwise, skin intact. Patient is continent x2. Can ambulate with cane or assist. No bleeding from the vagina or Midline at this time. Patient has a MENG Midline and a LFA 18g. Belongings accounted for with patient. Cane from home at bedside. Commode placed at bedside. Bed locked and in lowest position with bed alarm on. Instructed patient to call for assistance before getting out of bed. Admission orders received from Dr. Wyatt. Will follow plan of care.
[2020-07-17] MEDS ORDERED: Sennosides 8.6mg tab ORAL PRN (02:15)
[2020-07-17] MEDS ORDERED: HYDROcodone/Acetamin 7.5/325 tab ORAL PRN (02:15)
[2020-07-17 06:06] LABS: BASOPHILS % (AUTO) 0.9 % (0.0-2.0); EOSINOPHILS % (AUTO) 2.6 % (0.0-3.0); HEMATOCRIT 36.7 % (37.0-47.0); HEMOGLOBIN 10.7 G/DL (12.0-16.0); LYMPHOCYTES % (AUTO) 12.8 % (20.0-45.0); MEAN CORPUSCULAR VOLUME 85 FL (80-99); MONOCYTES % (AUTO) 6.4 % (1.0-10.0); NEUTROPHILS % (AUTO) 77.2 % (45.0-75.0); PLATELET COUNT 246 K/UL (150-450); RED BLOOD COUNT 4.32 M/UL (4.20-5.40); RED CELL DISTRIBUTION WIDTH 18.1 % (11.6-14.8); WHITE BLOOD COUNT 11.7 K/UL (4.8-10.8)
[2020-07-17] MEDS: metFORMIN 500mg tab ORAL SCH ×2 (06:17→17:11)
--- NOTE | 2020-07-17 06:25 | NUR ---
NURSE HAND-OFF: Important Events on Shift: [facility]; No acute events Patient Status: Stable Diet: SUPA Pending Orders: Venous duplex bilat LL Pending Results/Labs: CBC, BMP Pending MD notification: N/A Latest Vital Signs: Temperature 97.9 , Pulse 92 , B/P 118 /61 , Respiratory Rate 18 , O2 SAT 97 , Room Air, O2 Flow Rate . Vital Sign Comment: N/A Latest [place]once Fall Score: 45 Fall Risk: High Risk Safety Measures: Call light Within Reach, Bed Alarm Zone 1, Side Rails Side Rails x3, Bed position Low and Locked. Fall Precautions: Yellow Socks Yellow Gown Door Sign Patient Fall Education
[2020-07-17 06:28] LABS: ANION GAP 6 mmol/L (5-15); BLOOD UREA NITROGEN 20 mg/dL (7-18); CALCIUM 8.9 MG/DL (8.5-10.1); CARBON DIOXIDE 35 MMOL/L (21-32); CHLORIDE 99 MMOL/L (98-107); CREATININE 0.9 MG/DL (0.55-1.30); PHOSPHORUS 3.9 MG/DL (2.5-4.9); POTASSIUM 3.1 MMOL/L (3.5-5.1); SODIUM 139 MMOL/L (136-145)
[2020-07-17] MEDS ORDERED: metFORMIN 500mg tab ORAL SCH (06:30)
--- NOTE | 2020-07-17 06:38 | NUR ---
NURSE NOTES: Patient's potassium noted to be 3.1 Magnesium [address] Wyatt. New orders received.
[2020-07-17] MEDS ORDERED: Milk of Magnesia 30ml Ud ORAL PRN (07:30)
--- NOTE | 2020-07-17 07:51 | NUR ---
NURSE NOTES: Received pt from MARY Erickson. pt was eating, no acute distress. call light w/in reach.
[2020-07-17] MEDS: Magnesium Oxide 400mg tab ORAL SCH ×2 (08:44→17:11)
[2020-07-17] MEDS: Docusate 100mg cap ORAL SCH (08:44)
[2020-07-17] MEDS: Allopurinol 100mg Tab ORAL SCH (08:45)
[2020-07-17] MEDS: Furosemide 40mg tab ORAL SCH (08:46)
[2020-07-17] MEDS ORDERED: Vancomycin 1.5gm/300ml Premix IVPB SCH (10:30)
--- NOTE | 2020-07-17 10:40 | Consultation ---
History of Present Illness General Date patient seen: Jul 17, 2020 Present Illness HPI This is a 59-year-old female with a history of morbid obesity with a BMI of 55 and known history of nonhealing left lower extremity/ankle ulcer who has had recurrent cellulitis and a history of recurrent DVT and pulmonary embolism prior was on Eliquis presents with chief complaint of cellulitis to lower extremity with bleeding from her PICC line and vaginal bleeding. She was just started on Zosyn and vancomycin. Her wound culture grew out E. coli and staph aureus in the past. After starting the Zosyn and vancomycin, she had bleeding from the PICC line and also vaginal bleeding. She denies any pain other than over her lower extremity. No fever chills but no nausea no vomiting. Her Eliquis was stopped today. She had a dose of vancomycin and Zosyn at around 8 PM. Bleeding around her PICC line is also controlled. She denies any chest pain or shortness of breath. No fever or chills. surgery called to evaluate for lower extremity cellulitis. patient seen, chart reviewed, patient examined. mild pain. states has been draining serous fluid for a few days Allergies: Coded Allergies: SULFA (SULFONAMIDE ANTIBIOTICS) (Unverified Allergy, Unknown, 05/02/15) allergy history per Dr. Jones COVID-19 Screening Contact w/high risk pt: No Recent Travel to affected area: No Experienced COVID-19 symptoms?: No Medication History Scheduled Allopurinol* (Allopurinol*), 100 MG ORAL DAILY, (Reported) Amino Acids/Protein Hydrolys (Pro-Stat Liquid), 30 ML ORAL DAILY, (Reported) Docusate Sodium* (Colace*), 100 MG ORAL TWICE A DAY, (Reported) Febuxostat (Uloric), 40 MG ORAL DAILY, (Reported) Ferrous Gluconate (Fergon), 300 MG ORAL BID Furosemide* (Lasix*), 40 MG ORAL DAILY Hydrochlorothiazide* (Hydrochlorothiazide*), 50 MG ORAL DAILY, (Reported) Liraglutide (Saxenda), 3 MG SQ DAILY, (Reported) Magnesium Oxide (Magnesium Oxide), 400 MG ORAL DAILY, (Reported) Metformin Hcl* (Metformin Hcl*), 500 MG ORAL TWICE A DAY, (Reported) Multivitamin (Daily Mario), 1 TAB ORAL DAILY, (Reported) Lsujlqrgolnp-Gptl-Fessgjbk,Iso (Zosyn 3.375 Gm Galaxy Bag), 3.375 GM IV Q8HR Potassium Chloride* (K-Dur*), 20 MEQ ORAL DAILY, (Reported) Vancomycin Hcl (Vancomycin Hcl), 1.5 GM IV BID Scheduled PRN Docusate Sodium* (Colace*), 100 MG ORAL TID PRN Gabapentin* (Gabapentin*), 100 MG ORAL Q12H PRN Hydrocodone Bit/Acetaminophen 7.5-300 Mg Tabl (Vicodin Es 7.5-300 Mg Tablet), 1 TAB ORAL Q4H PRN for For Pain, (Reported) Sennosides (Senna), 8.6 MG ORAL DAILYPRN PRN Miscellaneous Medications Ergocalciferol (Vitamin D2) (Vitamin D2), 1.25 MG PO, (Reported) Discontinued Medications Apixaban (Eliquis*), 5 MG PO BID, (Reported) Discontinued Reason: MD discontinued med Patient History History Provided By: Patient, Medical Record, PMD Healthcare decision maker Resuscitation status Advanced Directive on File Past Medical/Surgical History Past Medical/Surgical History: (1) Abnormal laboratory test result (2) BMI 60.0-69.9, adult (3) Elevated lactic acid level (4) COVID-19 ruled out by laboratory testing (5) Hypokalemia (6) Cellulitis (7) Gout (8) HTN (hypertension) (9) ACS (acute coronary syndrome) (10) Factor V Leiden (11) Cellulitis of right leg (12) Factor 5 Leiden mutation, heterozygous (13) DVT, bilateral lower limbs (14) Acute cholecystitis (15) Acute cholecystitis (16) Hypokalemia (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 (18) Acute blood loss anemia (19) Thrush (20) Morbid obesity (21) Anemia (22) Back pain (23) Cough (24) Diarrhea (25) SOB (shortness of breath) (26) Flank pain (27) Leukocytosis (28) Leukocytosis (29) Post-menopausal bleeding (30) Hypoalbuminemia (31) Sepsis (32) Rectal bleeding (33) Venous stasis (34) Hypertension (35) Pneumonitis (36) Obesity (37) Chronic pain (38) Muscle ache (39) Cellulitis, leg (40) Cellulitis, leg (41) Clostridium difficile colitis (42) Diabetes type 2, controlled (43) Shoulder pain, right (44) Cellulitis of right leg (45) Chronic wound of extremity (46) Flank pain, acute (47) Injury of lower extremity (48) Left leg cellulitis (49) Bilateral cellulitis of lower leg (50) Bilateral lower leg cellulitis (51) Poor intravenous access (52) DVT, recurrent, lower extremity, acute and chronic (53) Deep vein thrombosis (DVT) of left lower extremity (54) Acute DVT of LLE (55) lives on own at home (56) lateral posterior left leg superficial skin breakdown ulcer (57) abdominal wall swelling (58) leg pain (59) probable abscess (60) Morbid obesity (61) Vaginal bleeding (62) Left leg cellulitis Family History Family History: Patient reports no known family medical history. Review of Systems Review of Symptoms General ROS: no weight loss or fever Psychological ROS: no depression or mood changes, no memory loss Ophthalmic ROS: no visual changes or eye irritation ENT ROS: no nasal congestion, hearing loss, dizziness Allergy and Immunology ROS: no allergic symptoms or urticaria Hematological and Lymphatic ROS: no swollen glands, unusual bleeding or bruising Endocrine ROS: no polyuria, polydipsia, weight changes, temperature intolerance Respiratory ROS: no cough, shortness of breath, or wheezing Cardiovascular ROS: no chest pain or dyspnea on exertion Gastrointestinal ROS: denies abdominal pain, bright red blood in stool. Musculoskeletal ROS: no myalgias or arthralgias Neurological ROS: no TIA or stroke symptoms Dermatological ROS: no new or changing skin lesions, rashes or pruritis Physical Exam Physical Exam General appearance: alert, cooperative, no distress, appears stated age Head: Normocephalic, without obvious abnormality, atraumatic Eyes: conjunctivae/corneas clear. PERRL, EOM's intact. Fundi benign Throat: Lips, mucosa, and tongue normal. Teeth and gums normal Neck: supple, symmetrical, trachea midline, no adenopathy, thyroid: not enlarged, symmetric, no tenderness/mass/nodules, no carotid bruit and no JVD Lungs: clear to auscultation bilaterally Heart: regular rate and rhythm, S1, S2 normal, no murmur, click, rub or gallop Abdomen: soft, non-tender. Bowel sounds normal. No masses, no organomegaly Extremities: extremities ++ cellulitis/ edema Pulses: 2+ and symmetric Skin: Skin color, texture, turgor normal. No rashes or lesions Neurologic: Grossly normal Last 24 Hour Vital Signs Date Time Temp Pulse Resp B/P (MAP) Pulse Ox O2 Delivery O2 Flow Rate FiO2 07/17/20 08:45 103 105/79 07/17/20 04:00 97.9 92 18 118/61 (80) 97 07/17/20 01:22 Room Air 07/17/20 01:00 97.8 88 18 133/109 (117) 98 07/17/20 00:46 97.3 20 131/78 96 Room Air 07/16/20 23:54 97.3 18 124/76 93 Room Air 07/16/20 23:03 97.3 84 18 124/76 (92) 93 Room Air Intake and Output 07/16/20 07/17/20 19:00 07:00 Intake Total 500 ml Balance 500 ml Intake Oral 500 ml # Voids 1 Laboratory Tests Test 07/16/20 23:10 07/17/20 05:25 07/17/20 07:00 White Blood Count 12.8 K/UL (4.8-10.8) H 11.7 K/UL (4.8-10.8) H Red Blood Count 4.50 M/UL (4.20-5.40) 4.32 M/UL (4.20-5.40) Hemoglobin 11.0 G/DL (12.0-16.0) L 10.7 G/DL (12.0-16.0) L Hematocrit 37.7 % (37.0-47.0) 36.7 % (37.0-47.0) L Mean Corpuscular Volume 84 FL (80-99) 85 FL (80-99) Mean Corpuscular Hemoglobin 24.5 PG (27.0-31.0) L 24.7 PG (27.0-31.0) L Mean Corpuscular Hemoglobin Concent 29.3 G/DL (32.0-36.0) L 29.1 G/DL (32.0-36.0) L Red Cell Distribution Width 18.0 % (11.6-14.8) H 18.1 % (11.6-14.8) H Platelet Count 262 K/UL (150-450) 246 K/UL (150-450) Mean Platelet Volume 7.4 FL (6.5-10.1) 6.8 FL (6.5-10.1) Neutrophils (%) (Auto) 75.8 % (45.0-75.0) H 77.2 % (45.0-75.0) H Lymphocytes (%) (Auto) 13.8 % (20.0-45.0) L 12.8 % (20.0-45.0) L Monocytes (%) (Auto) 7.1 % (1.0-10.0) 6.4 % (1.0-10.0) Eosinophils (%) (Auto) 2.4 % (0.0-3.0) 2.6 % (0.0-3.0) Basophils (%) (Auto) 1.0 % (0.0-2.0) 0.9 % (0.0-2.0) Prothrombin Time 10.7 SEC (9.30-11.50) Prothromb Time International Ratio 1.0 (0.9-1.1) Activated Partial Thromboplast Time 26 SEC (23-33) Sodium Level 137 MMOL/L (136-145) 139 MMOL/L (136-145) Potassium Level 3.6 MMOL/L (3.5-5.1) 3.1 MMOL/L (3.5-5.1) L Chloride Level 99 MMOL/L (98-107) 99 MMOL/L (98-107) Carbon Dioxide Level 31 MMOL/L (21-32) 35 MMOL/L (21-32) H Anion Gap 7 mmol/L (5-15) 6 mmol/L (5-15) Blood Urea Nitrogen 23 mg/dL (7-18) H 20 mg/dL (7-18) H Creatinine 1.0 MG/DL (0.55-1.30) 0.9 MG/DL (0.55-1.30) Estimat Glomerular Filtration Rate > 60 mL/min (>60) > 60 mL/min (>60) Glucose Level 108 MG/DL (74-106) H 110 MG/DL (74-106) H Calcium Level 9.4 MG/DL (8.5-10.1) 8.9 MG/DL (8.5-10.1) Phosphorus Level 3.9 MG/DL (2.5-4.9) Magnesium Level 1.7 MG/DL (1.8-2.4) L Vancomycin Level Trough 2.7 ug/mL (5.0-12.0) L Height (Feet): 6 Height (Inches): 1.00 Weight (Pounds): 420 Medications Current Medications Medications (Trade) Dose Ordered Sig/Key Route PRN Reason Start Time Stop Time Status Last Admin Dose Admin Acetaminophen (Tylenol) 650 mg Q6H PRN ORAL Mild Pain (Pain Scale 1-3) 07/17/20 02:15 08/16/20 02:14 07/17/20 04:34 Acetaminophen/ Hydrocodone Bitart (Bigelow 7.5/325) 1 tab Q4H PRN ORAL Moderate Pain (Pain Scale 4-6) 07/17/20 02:15 07/24/20 02:14 Albuterol/ Ipratropium (Albuterol/ Ipratropium) 3 ml Q6HRT PRN HHN Shortness of Breath 07/17/20 02:15 07/22/20 02:14 Allopurinol (Zyloprim) 100 mg DAILY ORAL 07/17/20 09:00 08/16/20 08:59 07/17/20 08:45 Amlodipine Besylate (Norvasc) 5 mg DAILY ORAL 07/17/20 09:00 08/16/20 08:59 Dextrose (Dextrose 50%) 25 ml Q30M PRN IV Hypoglycemia 07/17/20 01:30 10/15/20 01:29 Dextrose (Dextrose 50%) 50 ml Q30M PRN IV Hypoglycemia 07/17/20 01:30 10/15/20 01:29 Docusate Sodium (Colace) 100 mg DAILY ORAL 07/17/20 09:00 08/16/20 08:59 07/17/20 08:44 Famotidine (Pepcid) 40 mg DAILY ORAL 07/17/20 09:00 10/15/20 08:59 07/17/20 08:45 Ferrous Gluconate (Fergon) 300 mg BID ORAL 07/17/20 09:00 10/15/20 08:59 UNV Furosemide (Lasix) 40 mg DAILY ORAL 07/17/20 09:00 08/16/20 08:59 Gabapentin (Neurontin) 100 mg Q12H PRN ORAL NEUROPATHIC PAIN 07/17/20 02:15 08/16/20 02:14 Magnesium Hydroxide (Mom) 10 ml Q6H PRN ORAL HEARTBURN 07/17/20 07:30 08/16/20 07:29 07/17/20 07:35 Magnesium Oxide (Mag-Ox 400mg) 400 mg BID ORAL 07/17/20 09:00 08/16/20 08:59 07/17/20 08:44 Metformin HCl (Glucophage) 500 mg BIAC ORAL 07/17/20 06:30 08/16/20 06:29 07/17/20 06:17 Multivitamins (Multivitamins) 1 tab DAILY ORAL 07/17/20 09:00 08/16/20 08:59 07/17/20 08:44 Sennosides (Senokot) 8.6 mg DAILYPRN PRN ORAL Constipation 07/17/20 02:15 08/16/20 02:14 Vancomycin HCl 300 ml @ 150 mls/hr ONCE IVPB 07/17/20 10:30 07/17/20 13:00 Vancomycin HCl (Vanco pharmacy to dose) 1 ea DAILY PRN MISC Per rx protocol 07/17/20 02:00 08/16/20 01:59 Vancomycin HCl 1 gm/Dextrose 275 ml @ 183.708 mls/hr Q8H IVPB 07/17/20 18:00 07/22/20 17:59 Assessment/Plan Problem List: (1) Morbid obesity ICD Codes: E66.01 - Morbid (severe) obesity due to excess calories SNOMED: 738922011 (2) Acute cholecystitis ICD Codes: K81.0 - Acute cholecystitis SNOMED: 20663815 (3) Acute cholecystitis ICD Codes: K81.0 - Acute cholecystitis SNOMED: 50312850 (4) Hypokalemia ICD Codes: E87.6 - Hypokalemia SNOMED: 60548410 (5) Hypokalemia ICD Codes: E87.6 - Hypokalemia SNOMED: 57288950 (6) Atypical psychosis ICD Codes: F29 - Atypical psychosis SNOMED: 39325265 (7) Acute blood loss anemia ICD Codes: D62 - Acute posthemorrhagic anemia SNOMED: 723405496 (8) Thrush ICD Codes: B37.0 - Thrush SNOMED: 72027531 (9) Gout ICD Codes: M10.9 - Gout, unspecified SNOMED: 35537652 (10) Morbid obesity ICD Codes: E66.01 - Morbid obesity SNOMED: 902982751 (11) Anemia ICD Codes: D64.9 - Anemia SNOMED: 041672980 (12) Back pain ICD Codes: M54.9 - Dorsalgia, unspecified SNOMED: 574634637 (13) Cellulitis Assessment & Plan: 59-year-old female chronic lower extremity edema cellulitis bilateral prior currently bilateral edema but cellulitis on the left side. Lateral aspect distal small skin partial-thickness abrasion 1 cm x 1 cm identified. Warm difficult to check pulses given size of the extremity overall morbidly obese BMI 55. No abscess identified no fluid collections identified generalized edema and cellulitis noted. No acute surgical intervention planned at this time. Arterial and venous duplexes will be ordered. Okay for diet. Keep bilateral lower extremities elevated while in bed. Activity as tolerated. Wash left lower extremity foot and ankle with normal saline. Apply Thera honey cover with Xeroform ABD and wrap with gauze. Daily and as needed. Antibiotics per infectious disease. Will follow with recommendations. Thank you for letting participate patient's care ICD Codes: L03.90 - Cellulitis SNOMED: 176631493 (14) Cough ICD Codes: R05 - Cough SNOMED: 67144958 (15) Diarrhea ICD Codes: R19.7 - Diarrhea, unspecified SNOMED: 81474887 (16) SOB (shortness of breath) ICD Codes: R06.02 - Shortness of breath SNOMED: 009497899 (17) Flank pain ICD Codes: R10.9 - Unspecified abdominal pain SNOMED: 842164826 (18) Leukocytosis ICD Codes: D72.829 - Elevated white blood cell count, unspecified SNOMED: 558940468, 465603587 (19) Leukocytosis ICD Codes: D72.829 - Elevated white blood cell count, unspecified SNOMED: 900119939, 411733229 (20) Post-menopausal bleeding ICD Codes: N95.0 - Postmenopausal bleeding SNOMED: 44545394 (21) Vaginal bleeding ICD Codes: N93.9 - Abnormal uterine and vaginal bleeding, unspecified SNOMED: 203733312, 012931319 (22) Hypoalbuminemia ICD Codes: E88.09 - Other disorders of plasma-protein metabolism, not elsewhere classified SNOMED: 976816460 (23) Sepsis ICD Codes: A41.9 - Sepsis, unspecified organism SNOMED: 08196080 (24) Rectal bleeding ICD Codes: K62.5 - Hemorrhage of anus and rectum SNOMED: 49746295 (25) Venous stasis ICD Codes: I87.8 - Other specified disorders of veins SNOMED: 50533597 (26) Hypertension ICD Codes: I10 - Hypertension SNOMED: 99674380 (27) Pneumonitis ICD Codes: J18.9 - Pneumonia, unspecified organism SNOMED: 067263919 (28) Obesity ICD Codes: E66.9 - Obesity, unspecified SNOMED: 569466770 (29) HTN (hypertension) ICD Codes: I10 - Essential (primary) hypertension SNOMED: 94505845 (30) Chronic pain ICD Codes: G89.29 - Other chronic pain SNOMED: 25677627 (31) Muscle ache ICD Codes: M79.1 - Myalgia SNOMED: 21872316 (32) Cellulitis, leg ICD Codes: L03.119 - Cellulitis, leg SNOMED: 149113189 (33) Cellulitis, leg ICD Codes: L03.119 - Cellulitis of unspecified part of limb SNOMED: 122643612 (34) Clostridium difficile colitis ICD Codes: A04.7 - Clostridium difficile colitis SNOMED: 949589022 (35) ACS (acute coronary syndrome) ICD Codes: I24.9 - Acute ischemic heart disease, unspecified SNOMED: 231387378 (36) Abnormal laboratory test result ICD Codes: R89.9 - Unspecified abnormal finding in specimens from other organs, systems and tissues SNOMED: 243407330 (37) Diabetes type 2, controlled ICD Codes: E11.9 - Type 2 diabetes mellitus without complications SNOMED: 33051987, 478093442 (38) Factor V Leiden ICD Codes: D68.51 - Activated protein C resistance SNOMED: 096513094 (39) Shoulder pain, right ICD Codes: M25.511 - Pain in right shoulder SNOMED: 28588907, 86055310 (40) Cellulitis of right leg ICD Codes: L03.115 - Cellulitis of right leg SNOMED: 448279323 (41) Cellulitis of right leg ICD Codes: L03.115 - Cellulitis of right lower limb SNOMED: 727933620 (42) BMI 60.0-69.9, adult ICD Codes: Z68.44 - Body mass index [BMI] 60.0-69.9, adult SNOMED: 136709999, 402606843 (43) Chronic wound of extremity SNOMED: 218159317 (44) Flank pain, acute ICD Codes: R10.9 - Unspecified abdominal pain SNOMED: 081006254 (45) Injury of lower extremity ICD Codes: S89.90XA - Unspecified injury of unspecified lower leg, initial encounter SNOMED: 965149817 (46) Left leg cellulitis ICD Codes: L03.116 - Cellulitis of left leg SNOMED: 722998557 (47) Left leg cellulitis ICD Codes: L03.116 - Cellulitis of left lower limb SNOMED: 533351623 (48) Factor 5 Leiden mutation, heterozygous ICD Codes: D68.8 - Factor 5 Leiden mutation, heterozygous SNOMED: 231401941 (49) DVT, bilateral lower limbs ICD Codes: I82.403 - Acute embolism and thrombosis of unspecified deep veins of lower extremity, bilateral SNOMED: 694089924, 921366030 (50) Elevated lactic acid level ICD Codes: R79.89 - Other specified abnormal findings of blood chemistry SNOMED: 4496687, 665799475 (51) Bilateral cellulitis of lower leg ICD Codes: L03.116 - Cellulitis of left lower limb; L03.115 - Cellulitis of right lower limb SNOMED: 880883822 (52) Bilateral lower leg cellulitis ICD Codes: L03.116 - Cellulitis of left lower limb; L03.115 - Cellulitis of right lower limb SNOMED: 481153740 (53) Poor intravenous access ICD Codes: Z87.898 - Poor intravenous access SNOMED: 444927140 (54) DVT, recurrent, lower extremity, acute and chronic ICD Codes: I82.409 - DVT, recurrent, lower extremity, acute and chronic; I82.509 - Chronic embolism and thombos unsp deep vn unsp low extrm SNOMED: 269672394 (55) Deep vein thrombosis (DVT) of left lower extremity ICD Codes: I82.402 - Acute embolism and thrombosis of unspecified deep veins of left lower extremity SNOMED: 011002990 (56) COVID-19 ruled out by laboratory testing ICD Codes: Z03.818 - Encounter for observation for suspected exposure to other biological agents ruled out SNOMED: 825377959, 442471397 (57) Acute DVT of LLE (58) lives on own at home (59) lateral posterior left leg superficial skin breakdown ulcer (60) abdominal wall swelling (61) leg pain (62) probable abscess Chuy Damian Jul 17, 2020 10:40
--- NOTE | 2020-07-17 10:43 | Diagnostic Imaging Report ---
EXAM: US Duplex Bilateral Lower Extremities Veins CLINICAL HISTORY: DVT TECHNIQUE: Real-time duplex ultrasound scan of the bilateral lower extremity veins integrating B-mode two-dimensional vascular structure, Doppler spectral analysis, color flow Doppler imaging and compression. COMPARISON: No relevant prior studies available. FINDINGS: Right deep veins: Unremarkable. No DVT in the right common femoral, femoral, proximal deep femoral or popliteal veins. The veins demonstrate normal color flow, are normally compressible, with normal phasic flow and/or augmentation response. Right superficial veins: Unremarkable. No thrombus in the visualized right great saphenous vein. Left deep veins: Unremarkable. No DVT in the left common femoral, femoral, proximal deep femoral or popliteal veins. The veins demonstrate normal color flow, are normally compressible, with normal phasic flow and/or augmentation response. Left superficial veins: Unremarkable. No thrombus in the visualized left great saphenous vein. Soft tissues: There is mild bilateral soft tissue edema. No popliteal cyst. IMPRESSION: No acute findings in the bilateral lower extremity veins.
--- NOTE | 2020-07-17 13:34 | History & Physical ---
History of Present Illness General Reason for Hospitalization: Vaginal Present Illness HPI This is a 59-year-old female with a history of morbid obesity with a BMI of 55 and known history of nonhealing left lower extremity/ankle ulcer who has had recurrent cellulitis and a history of recurrent DVT and pulmonary embolism prior was on Eliquis presents with chief complaint of cellulitis to lower extremity with bleeding from her PICC line and vaginal bleeding. She was just started on Zosyn and vancomycin. Her wound culture grew out E. coli and staph aureus in the past. After starting the Zosyn and vancomycin, she had bleeding from the PICC line and also vaginal bleeding. She denies any pain other than over her lower extremity. No fever chills but no nausea no vomiting. Her Eliquis was stopped today. She had a dose of vancomycin and Zosyn at around 8 PM. Bleeding around her PICC line is also controlled. She denies any chest pain or shortness of breath. No fever or chills. surgery called to evaluate for lower extremity cellulitis. patient seen, chart reviewed, patient examined. mild pain. states has been draining serous fluid for a few days Allergies: Coded Allergies: SULFA (SULFONAMIDE ANTIBIOTICS) (Unverified Allergy, Unknown, 05/02/15) allergy history per Dr. Jones COVID-19 Screening Contact w/high risk pt: No Recent Travel to affected area: No Experienced COVID-19 symptoms?: No Medication History Scheduled Allopurinol* (Allopurinol*), 100 MG ORAL DAILY, (Reported) Amino Acids/Protein Hydrolys (Pro-Stat Liquid), 30 ML ORAL DAILY, (Reported) Amlodipine Besylate* (Amlodipine Besylate*), 5 MG ORAL DAILY, (Reported) Dextran 70/Hypromellose (Artificial Tears Eye Drops*), 1 DROP BOTH EYES TID, (Reported) Docusate Sodium* (Colace*), 100 MG ORAL DAILY, (Reported) Famotidine* (Pepcid 20mg tablet*), 20 MG ORAL DAILY, (Reported) Febuxostat (Uloric), 40 MG ORAL DAILY, (Reported) Ferrous Gluconate (Fergon), 300 MG ORAL BID Fish Oil (Fish Oil 1,000 mg Capsule), 500 MG ORAL DAILY, (Reported) Furosemide* (Lasix*), 40 MG ORAL DAILY Hydrochlorothiazide* (Hydrochlorothiazide*), 50 MG ORAL DAILY, (Reported) Liraglutide (Saxenda), 3 MG SQ DAILY, (Reported) Magnesium Oxide (Magnesium Oxide), 400 MG ORAL BID, (Reported) Metformin Hcl* (Metformin Hcl*), 500 MG ORAL TWICE A DAY, (Reported) Multivitamin (Daily Mario), 1 TAB ORAL DAILY, (Reported) Ybtmnqjwtlvo-Lfww-Twowpkxz,Iso (Zosyn 3.375 Gm Galaxy Bag), 3.375 GM IV Q8HR Potassium Chloride* (K-Dur*), 60 MEQ ORAL DAILY, (Reported) Vancomycin Hcl (Vancomycin Hcl), 1.5 GM IV BID Scheduled PRN Acetaminophen* (Acetaminophen 325MG Tablet*), 650 MG ORAL Q6H PRN for mild pain, (Reported) Gabapentin* (Gabapentin*), 100 MG ORAL Q12H PRN Hydrocodone Bit/Acetaminophen 7.5-300 Mg Tabl (Vicodin Es 7.5-300 Mg Tablet), 1 TAB ORAL Q4H PRN for For Pain, (Reported) Hydrocodone/Acetaminophen 7.5-325* (Hydrocodon-Acetaminoph 7.5-325*), 1 TAB ORAL Q4H PRN for Severe Pain (Pain Scale 7-10), (Reported) Ipratropium [place]il 0.5MG/2.5ML (Ipratropium [place] 0.5MG/2.5ML), 0.6 MG HHN Q6H PRN for Shortness of Breath, (Reported) Sennosides (Senna), 8.6 MG ORAL DAILYPRN PRN Discontinued Medications Apixaban (Eliquis*), 5 MG PO BID, (Reported) Discontinued Reason: MD discontinued med Ergocalciferol (Vitamin D2) (Vitamin D2), 1.25 MG PO, (Reported) Discontinued Reason: Therapy completed Patient History Healthcare decision maker Resuscitation status Advanced Directive on File Family History Family History: Patient reports no known family medical history. Review of Systems Review of Symptoms General ROS: no weight loss or fever Psychological ROS: no depression or mood changes, no memory loss Ophthalmic ROS: no visual changes or eye irritation ENT ROS: no nasal congestion, hearing loss, dizziness Allergy and Immunology ROS: no allergic symptoms or urticaria Hematological and Lymphatic ROS: no swollen glands, unusual bleeding or bruising Endocrine ROS: no polyuria, polydipsia, weight changes, temperature intolerance Respiratory ROS: no cough, shortness of breath, or wheezing Cardiovascular ROS: no chest pain or dyspnea on exertion Gastrointestinal ROS: denies abdominal pain, bright red blood in stool. Musculoskeletal ROS: no myalgias or arthralgias Neurological ROS: no TIA or stroke symptoms Dermatological ROS: no new or changing skin lesions, rashes or pruritis Physical Exam Physical Exam General appearance: alert, cooperative, no distress, appears stated age Head: Normocephalic, without obvious abnormality, atraumatic Eyes: conjunctivae/corneas clear. PERRL, EOM's intact. Fundi benign Throat: Lips, mucosa, and tongue normal. Teeth and gums normal Neck: supple, symmetrical, trachea midline, no adenopathy, thyroid: not enlarged, symmetric, no tenderness/mass/nodules, no carotid bruit and no JVD Lungs: clear to auscultation bilaterally Heart: regular rate and rhythm, S1, S2 normal, no murmur, click, rub or gallop Abdomen: soft, non-tender. Bowel sounds normal. No masses, no organomegaly Extremities: extremities normal, atraumatic, no cyanosis or edema Pulses: 2+ and symmetric Skin: Skin color, texture, turgor normal. No rashes or lesions Neurologic: Grossly normal Last 24 Hour Vital Signs Date Time Temp Pulse Resp B/P (MAP) Pulse Ox O2 Delivery O2 Flow Rate FiO2 07/17/20 11:35 98.2 90 19 130/73 (92) 95 07/17/20 09:00 Room Air 07/17/20 08:45 103 105/79 07/17/20 08:00 98.0 103 19 105/79 (88) 93 07/17/20 04:00 97.9 92 18 118/61 (80) 97 07/17/20 01:22 Room Air 07/17/20 01:00 97.8 88 18 133/109 (117) 98 07/17/20 00:46 97.3 20 131/78 96 Room Air 07/16/20 23:54 97.3 18 124/76 93 Room Air 07/16/20 23:03 97.3 84 18 124/76 (92) 93 Room Air Intake and Output 07/16/20 07/17/20 19:00 07:00 Intake Total 500 ml Balance 500 ml Intake Oral 500 ml # Voids 1 Laboratory Tests Test 3/5/21 23:10 07/17/20 05:25 07/17/20 07:00 White Blood Count 12.8 K/UL (4.8-10.8) H 11.7 K/UL (4.8-10.8) H Red Blood Count 4.50 M/UL (4.20-5.40) 4.32 M/UL (4.20-5.40) Hemoglobin 11.0 G/DL (12.0-16.0) L 10.7 G/DL (12.0-16.0) L Hematocrit 37.7 % (37.0-47.0) 36.7 % (37.0-47.0) L Mean Corpuscular Volume 84 FL (80-99) 85 FL (80-99) Mean Corpuscular Hemoglobin 24.5 PG (27.0-31.0) L 24.7 PG (27.0-31.0) L Mean Corpuscular Hemoglobin Concent 29.3 G/DL (32.0-36.0) L 29.1 G/DL (32.0-36.0) L Red Cell Distribution Width 18.0 % (11.6-14.8) H 18.1 % (11.6-14.8) H Platelet Count 262 K/UL (150-450) 246 K/UL (150-450) Mean Platelet Volume 7.4 FL (6.5-10.1) 6.8 FL (6.5-10.1) Neutrophils (%) (Auto) 75.8 % (45.0-75.0) H 77.2 % (45.0-75.0) H Lymphocytes (%) (Auto) 13.8 % (20.0-45.0) L 12.8 % (20.0-45.0) L Monocytes (%) (Auto) 7.1 % (1.0-10.0) 6.4 % (1.0-10.0) Eosinophils (%) (Auto) 2.4 % (0.0-3.0) 2.6 % (0.0-3.0) Basophils (%) (Auto) 1.0 % (0.0-2.0) 0.9 % (0.0-2.0) Prothrombin Time 10.7 SEC (9.30-11.50) Prothromb Time International Ratio 1.0 (0.9-1.1) Activated Partial Thromboplast Time 26 SEC (23-33) Sodium Level 137 MMOL/L (136-145) 139 MMOL/L (136-145) Potassium Level 3.6 MMOL/L (3.5-5.1) 3.1 MMOL/L (3.5-5.1) L Chloride Level 99 MMOL/L (98-107) 99 MMOL/L (98-107) Carbon Dioxide Level 31 MMOL/L (21-32) 35 MMOL/L (21-32) H Anion Gap 7 mmol/L (5-15) 6 mmol/L (5-15) Blood Urea Nitrogen 23 mg/dL (7-18) H 20 mg/dL (7-18) H Creatinine 1.0 MG/DL (0.55-1.30) 0.9 MG/DL (0.55-1.30) Estimat Glomerular Filtration Rate > 60 mL/min (>60) > 60 mL/min (>60) Glucose Level 108 MG/DL (74-106) H 110 MG/DL (74-106) H Calcium Level 9.4 MG/DL (8.5-10.1) 8.9 MG/DL (8.5-10.1) Phosphorus Level 3.9 MG/DL (2.5-4.9) Magnesium Level 1.7 MG/DL (1.8-2.4) L Vancomycin Level Trough 2.7 ug/mL (5.0-12.0) L Height (Feet): 6 Height (Inches): 1.00 Weight (Pounds): 420 Medications Current Medications Medications (Trade) Dose Ordered Sig/Key Route PRN Reason Start Time Stop Time Status Last Admin Dose Admin Acetaminophen (Tylenol) 650 mg Q6H PRN ORAL Mild Pain (Pain Scale 1-3) 07/17/20 02:15 08/16/20 02:14 07/17/20 11:50 Acetaminophen/ Hydrocodone Bitart ([place] 7.5/325) 1 tab Q4H PRN ORAL pain 4-10 07/17/20 02:15 07/24/20 02:14 Albuterol/ Ipratropium (Albuterol/ Ipratropium) 3 ml Q6HRT PRN HHN Shortness of Breath 07/17/20 02:15 07/22/20 02:14 Allopurinol (Zyloprim) 100 mg DAILY ORAL 07/17/20 09:00 08/16/20 08:59 07/17/20 08:45 Amlodipine Besylate (Norvasc) 5 mg DAILY ORAL 07/17/20 09:00 08/16/20 08:59 Dextrose (Dextrose 50%) 25 ml Q30M PRN IV Hypoglycemia 07/17/20 01:30 10/15/20 01:29 Dextrose (Dextrose 50%) 50 ml Q30M PRN IV Hypoglycemia 07/17/20 01:30 10/15/20 01:29 Docusate Sodium (Colace) 100 mg DAILY ORAL 07/17/20 09:00 08/16/20 08:59 07/17/20 08:44 Famotidine (Pepcid) 40 mg DAILY ORAL 07/17/20 09:00 10/15/20 08:59 07/17/20 08:45 Ferrous Gluconate (Fergon) 324 mg BID ORAL 07/17/20 18:00 10/15/20 17:59 Furosemide (Lasix) 40 mg DAILY ORAL 07/17/20 09:00 08/16/20 08:59 Gabapentin (Neurontin) 100 mg Q12H PRN ORAL NEUROPATHIC PAIN 07/17/20 02:15 08/16/20 02:14 Hydromorphone HCl (Dilaudid) 0.5 mg Q4H PRN IVP For Pain 07/17/20 13:30 07/24/20 13:29 Magnesium Hydroxide (Mom) 10 ml Q6H PRN ORAL HEARTBURN 07/17/20 07:30 08/16/20 07:29 07/17/20 07:35 Magnesium Oxide (Mag-Ox 400mg) 400 mg BID ORAL 07/17/20 09:00 08/16/20 08:59 07/17/20 08:44 Metformin HCl (Glucophage) 500 mg BIAC ORAL 07/17/20 06:30 08/16/20 06:29 07/17/20 06:17 Multivitamins (Multivitamins) 1 tab DAILY ORAL 07/17/20 09:00 08/16/20 08:59 07/17/20 08:44 Sennosides (Senokot) 8.6 mg DAILYPRN PRN ORAL Constipation 07/17/20 02:15 08/16/20 02:14 Vancomycin HCl (Vanco pharmacy to dose) 1 ea DAILY PRN MISC Per rx protocol 07/17/20 02:00 08/16/20 01:59 Vancomycin HCl 1 gm/Dextrose 275 ml @ 183.708 mls/hr Q8H IVPB 07/17/20 18:00 07/22/20 17:59 Assessment/Plan Diagnosis [place] I: #Bleeding from Piccline #vaginal bleeding? #h/o DVT/PE #HTN #LE cellulitis #obesity - admit inpatient - ID eval - pulm eval - resume apixaban when bleeding r/oed - monitor hemoglobin - IV antibiotic per ID - amlodipine 5mg daily - laix 40 daily - monitor lytes - wound care - gen surg eval [facility] Hospital declaration INPATIENT level of care is warranted for this patient because patient is a 89 year old with who presents with suspicion of . I have a high level of concern because . Patient is at high risk for . Plan of care/treatment include . Patient care is expected to be greater than 2 midnights. OBSERVATION level of care is warranted for this patient. Patient is a 89 year old with who presents with . Patient will be admitted for 1 midnight, but if additional night(s) is/are necessary, patient will be converted to inpatient status for the entire hospitalization Disposition: Once the patient is stable to leave the hospital, I anticipate the patient will likely be discharged to the following environment: Estimated discharge date: I spent 70 minutes on this patient's case, and minutes was dedicated to coun seling and/or care coordination. MIPS (Merit-based Incentive Payment System) Applicable CPT: 92082, 96862 CHECK ALL THAT ARE MET: Measure #5 (CHF): All ages. Prescribe DUNIA/ARB upon discharge for patients with left ventricular systolic dysfunction. If not, the reason is clearly documented in the medical chart. Measure #8 (CHF): All ages. Prescribe a beta laron upon discharge for patients with left ventricular systolic dysfunction. If not, the reason is clearly documented in the medical chart. Measure #47 Advance care plan or surrogate decision maker documented in the medical record. Measure #130 The provider has documented, updated, or reviewed the patients current medication list and has documented it in the patients note. Measure #374 (All): Send report to referring provider. Measure #407(Sepsis due to MSSA bacteremia): Age 18+ Patient treated with a beta-lactam antibiotic (Nafcillin, Oxacillin or Cefazolin) as definitive therapy. MEDICAL COMPLEXITY High complexity medical decision making (need 2/3 categories) Problem - need 4 points Acute/new problem with new plan for workup (4 points, 1 max) Acute/new problem without additional workup (3 points, 1 max) Unstable chronic problem actively being managed (2 point each, 2 max) Stable chronic problem actively being managed (1 point each, 2 max) Self-limited/transient process (constipation, muscle ache, etc) (1 point each, 2 max) Data - need 4 points Reviewed labs/imaging studies (1 points, 2 max) Independent review of imaging (EKG, xrays, etc) (2 points, 2 max) Discussed case with consult/other MD/RN (2 points, 2 max) High Risk - qualify if have one of the following: Severe exacerbation of acute problem, acute mental status change, IV narcotics, monitoring drug levels (vancomycin, INR, tacrolimus etc) Nikki Wyatt M.D. Jul 17, 2020 13:34
[2020-07-17] MEDS ORDERED: ARTIFICIAL TEAR15 ML BOTH EYES (13:48)
[2020-07-17] MEDS ORDERED: AMLODIPINE BESYL5 MG ORAL (13:48)
[2020-07-17] MEDS ORDERED: IPRATROPIU0.2 MG/1 M HHN (13:48)
[2020-07-17] MEDS ORDERED: FISH OIL CAP1000 MG ORAL (13:48)
[2020-07-17] MEDS ORDERED: HYDROCODON-ACE1 EA16 ORAL (13:48)
[2020-07-17] MEDS ORDERED: FAMOTIDINE20 MG ORAL (13:48)
[2020-07-17] MEDS ORDERED: ACETAMINOPHEN325 M1 ORAL (13:48)
--- NOTE | 2020-07-17 14:29 | Consultation ---
DATE OF CONSULTATION: 07/17/2020 PULMONARY CONSULTATION CONSULTING PHYSICIAN: Ag Gupta MD. HISTORY OF PRESENT ILLNESS: This is a 59-year-old morbidly obese female with a history of nonhealing ulcer and cellulitis, who came to the hospital of lower extremity cellulitis as well as bleeding from PICC line. She also reported vaginal bleeding. She has been on antibiotics at home. Apparently, the wound culture has grown multiple organisms. The patient also has history of previous DVT and pulmonary embolism and remains on Eliquis. Overnight, her bleeding around the PICC line has been controlled. She denies any further bleeding. ALLERGIES: Sulfa. PAST MEDICAL HISTORY: Notable for obesity, recurrent cellulitis, lower extremity ankle ulcer, previous DVT, previous pulmonary embolism, PICC line, hypertension. Past history also notable for asthma, diabetes mellitus, hypertension, previous CVA. REVIEW OF SYSTEMS: Denies any headaches, hematemesis, melena, hematochezia, night sweats, or weight loss. She admits to having light bleeding, which did not resolve. CURRENT MEDICATIONS: Include Zyloprim, Norvasc, Colace, DuoNeb, Pepcid, ferrous sulfate, Lasix, Neurontin, Blanco, Glucophage, multivitamins, vancomycin, and metformin. At this point, her Eliquis is on hold. PHYSICAL EXAMINATION: GENERAL: Reveals an obese female. HEENT: Unremarkable. LUNGS: Clear breath sounds bilaterally. ABDOMEN: Soft. EXTREMITIES: Lower extremity cellulitis noted. VITAL SIGNS: Blood pressure is 105/60, heart rate 94, respirations are 20, O2 saturation 93% on room air. LABORATORY DATA: Lab testing shows hemoglobin 10.7, otherwise normal CBC and BMP. Potassium 3.1. Coags show INR of 1. IMAGING STUDIES: Venous duplex obtained lower extremities, which showed no evidence of DVT. IMPRESSION: 1. History of DVT and pulmonary embolism. 2. Vaginal bleeding. 3. Anemia. 4. Lower extremity cellulitis. DISCUSSION: Admit to the hospital with management and care. We will hold Eliquis for 24 hours. If there is no further bleeding, we will resume. We will discuss with Dr. Wyatt. If there are plans for surgical intervention for lower extremity ulcerations, then I would continue to hold Eliquis for longer period. Ag Gupta M.D. DR: DANIELITO JOB#: [id number] CC:
[2020-07-17] MEDS: Vancomycin 1gm/D5W 275ml IVPB SCH ×2 (17:11)
[2020-07-17] MEDS: Ferrous Gluconate 324 MG TAB ORAL SCH (17:11)
--- NOTE | 2020-07-17 18:14 | Consultation ---
DATE OF CONSULTATION: 07/17/2020 INFECTIOUS DISEASES CONSULTATION CONSULTING PHYSICIAN: Harrison Velasco MD PRIMARY ATTENDING PHYSICIAN: Nikki Wyatt MD REASON FOR CONSULTATION: Left leg cellulitis. HISTORY OF PRESENT ILLNESS: This is a 59-year-old female admitted from [facility]. The patient developed left lower extremity ulcers. She was started on vancomycin by rehab center after placement of PICC line, believed that she developed some reaction to vancomycin, some hardness in the upper extremity and bleeding from PICC site, also had vaginal bleeding. At the time of admission, she had leukocytosis of 12.8. PAST MEDICAL HISTORY: Morbid obesity, hypertension, diabetes mellitus on insulin, anemia, gout, venous stasis. MEDICATIONS: Getting vancomycin, ferrous sulfate, Pepcid, amlodipine, multivitamin, Lasix, Colace, allopurinol, metformin, Tylenol, albuterol/ipratropium inhaler, [place], gabapentin, Senokot. 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 She had previous hospitalization in [facility]. Single. REVIEW OF SYSTEMS: As history of present illness. The patient states these ulcers come and go, on and off. They started just 3-4 days ago. No fever. No chills. No coughing. No shortness of breath. She has vaginal bleeding. PHYSICAL EXAMINATION: VITAL SIGNS: Temperature 98.2, pulse 90, blood pressure 130/73. GENERAL APPEARANCE: Seems very obese. HEAD AND NECK: Moist mucous membranes. HEART: Normal rate. LUNGS: Clear. ABDOMEN: Soft, nontender. EXTREMITIES: Bilateral venous stasis dermatitis and edema of legs, have superficial ulcer on lateral lower leg and ankle. LABORATORY DATA: WBC today is 11.7, hemoglobin 10.7, hematocrit 36.7, and platelet is 246. Sodium 139, potassium 3.1, chloride 99, bicarb 35, BUN 20, creatinine 0.9, glucose 110. IMPRESSION: Left leg cellulitis. The patient has morbid obesity, hypertension, diabetes mellitus, stasis dermatitis, anemia, gout. RECOMMENDATION: Continue vancomycin. We will follow up the cultures. At the end of my exam, I thank Dr. Wyatt for involving me in the care of this patient. Harrison Velasco M.D. DR: Yana JOB#: [id number] CC: CARMELO
[2020-07-17] MEDS: HYDROmorphone 1mg/ml Carpuject IVP PRN (18:15)
--- NOTE | 2020-07-17 19:29 | NUR ---
NURSE HAND-OFF: Important Events on Shift:[] Patient Status: [] Diet: [] Pending Orders: [] Pending Results/Labs:[] Pending MD notification:[] Latest Vital Signs: Temperature 98.5 , Pulse 86 , B/P 144 /79 , Respiratory Rate 19 , O2 SAT 97 , Room Air, O2 Flow Rate . Vital Sign Comment: [] Latest [place] Fall Score: 45 Fall Risk: High Risk Safety Measures: Call light Within Reach, Bed Alarm Zone 1, Side Rails Side Rails x2, Bed position Low and Locked. Fall Precautions: Yellow Socks Report given to [MARY South].
--- NOTE | 2020-07-17 19:30 | NUR ---
NURSE NOTES: Patient sitting on bed, alert and oriented x4, on room air, no respiratory distress noted. No complaint at this time. Instructed to use call light for assistance. Bed in lowest and lock engaged. Will continue to monitor.
[2020-07-18] MEDS: HYDROmorphone 1mg/ml Carpuject IVP PRN ×5 (01:43→22:40)
[2020-07-18] MEDS: Vancomycin 1gm/D5W 275ml IVPB SCH ×6 (01:49→17:19)
[2020-07-18 01:54] VITALS: BP 127/81
[2020-07-18 05:30] VITALS: BP 127/83
[2020-07-18] MEDS: metFORMIN 500mg tab ORAL SCH ×2 (06:00→17:17)
--- NOTE | 2020-07-18 07:48 | NUR ---
NURSE HAND-OFF: Important Events on Shift: pain mgt, accuchecks Patient Status: stable Diet: SUPA Pending Orders: Pending Results/Labs: Pending MD notification: Latest Vital Signs: Temperature 98.0 , Pulse 93 , B/P 127 /83 , Respiratory Rate 20 , O2 SAT 100 , Room Air, O2 Flow Rate . Vital Sign Comment: Latest Ponce Fall Score: 45 Fall Risk: High Risk Safety Measures: Call light Within Reach, Bed Alarm Zone 1, Side Rails Side Rails x2, Bed position Low and Locked. Fall Precautions: Yellow Socks Report given to MARY Bray.
[2020-07-18 08:00] VITALS: BP 126/72
[2020-07-18] MEDS: Allopurinol 100mg Tab ORAL SCH (09:31)
[2020-07-18] MEDS: Ferrous Gluconate 324 MG TAB ORAL SCH ×2 (09:31→17:17)
[2020-07-18] MEDS: Furosemide 40mg tab ORAL SCH (09:31)
[2020-07-18] MEDS: Docusate 100mg cap ORAL SCH (09:34)
[2020-07-18] MEDS: Magnesium Oxide 400mg tab ORAL SCH ×2 (09:34→17:17)
--- NOTE | 2020-07-18 09:43 | Pulmonology Progress Note ---
Subjective Interval Events: None new Constitutional: Reports: no symptoms HEENT: Repors: no symptoms Respiratory: Reports: no symptoms Cardiovascular: Reports: no symptoms Gastrointestinal/Abdominal: Reports: no symptoms Genitourinary: Reports: no symptoms Allergies: Coded Allergies: SULFA (SULFONAMIDE ANTIBIOTICS) (Unverified Allergy, Unknown, 05/02/15) allergy history per Dr. Jones Objective Last 24 Hour Vital Signs Date Time Temp Pulse Resp B/P (MAP) Pulse Ox O2 Delivery O2 Flow Rate FiO2 07/18/20 09:33 86 126/72 07/18/20 08:00 97.2 86 20 126/72 (90) 16 07/18/20 05:30 98.0 93 20 127/83 (98) 100 07/18/20 01:54 97.8 100 20 127/81 (96) 95 07/17/20 20:50 Room Air 07/17/20 20:00 96.8 85 20 126/80 (95) 98 07/17/20 16:00 98.5 86 19 144/79 (100) 97 07/17/20 11:35 98.2 90 19 130/73 (92) 95 Intake and Output 07/17/20 07/18/20 19:00 07:00 Intake Total 1080 ml 775 ml Balance 1080 ml 775 ml Intake Oral 1080 ml 500 ml IV Total 275 ml # Voids 4 3 # Bowel Movements 1 Objective Saturating well on RA General Appearance: no acute distress Respiratory: chest wall non-tender Cardiovascular: normal peripheral pulses Abdomen: normal bowel sounds Microbiology Date/Time Source Procedure Growth Status 07/16/20 23:49 Other Gram Stain - Final Resulted 07/16/20 23:49 Other Wound Culture Pending Resulted Laboratory Tests 07/17/20 11:29: POC Whole Blood Glucose 114H 07/17/20 16:39: POC Whole Blood Glucose 117H 07/17/20 19:58: POC Whole Blood Glucose [Pending] 07/18/20 06:26: POC Whole Blood Glucose [Pending] Current Medications Medications (Trade) Dose Ordered Sig/Eky Route PRN Reason Start Time Stop Time Status Last Admin Dose Admin Acetaminophen (Tylenol) 650 mg Q6H PRN ORAL Mild Pain (Pain Scale 1-3) 07/17/20 02:15 08/16/20 02:14 07/17/20 11:50 Acetaminophen/ Hydrocodone Bitart ([place] 7.5/325) 1 tab Q4H PRN ORAL pain 4-10 07/17/20 02:15 07/24/20 02:14 Albuterol/ Ipratropium (Albuterol/ Ipratropium) 3 ml Q6HRT PRN HHN Shortness of Breath 07/17/20 02:15 07/22/20 02:14 Allopurinol (Zyloprim) 100 mg DAILY ORAL 07/17/20 09:00 08/16/20 08:59 07/18/20 09:31 Amlodipine Besylate (Norvasc) 5 mg DAILY ORAL 07/17/20 09:00 08/16/20 08:59 07/18/20 09:33 Dextrose (Dextrose 50%) 25 ml Q30M PRN IV Hypoglycemia 07/17/20 01:30 10/15/20 01:29 Dextrose (Dextrose 50%) 50 ml Q30M PRN IV Hypoglycemia 07/17/20 01:30 10/15/20 01:29 Docusate Sodium (Colace) 100 mg DAILY ORAL 07/17/20 09:00 08/16/20 08:59 07/18/20 09:34 Famotidine (Pepcid) 40 mg DAILY ORAL 07/17/20 09:00 10/15/20 08:59 07/18/20 09:34 Ferrous Gluconate (Fergon) 324 mg BID ORAL 07/17/20 18:00 10/15/20 17:59 07/18/20 09:31 Furosemide (Lasix) 40 mg DAILY ORAL 07/17/20 09:00 08/16/20 08:59 07/18/20 09:31 Gabapentin (Neurontin) 100 mg Q12H PRN ORAL NEUROPATHIC PAIN 07/17/20 02:15 08/16/20 02:14 Hydromorphone HCl (Dilaudid) 0.5 mg Q4H PRN IVP For Pain 07/17/20 13:30 07/24/20 13:29 07/18/20 06:01 Magnesium Hydroxide (Mom) 10 ml Q6H PRN ORAL HEARTBURN 07/17/20 07:30 08/16/20 07:29 07/17/20 07:35 Magnesium Oxide (Mag-Ox 400mg) 400 mg BID ORAL 07/17/20 09:00 08/16/20 08:59 07/18/20 09:34 Metformin HCl (Glucophage) 500 mg BIAC ORAL 07/17/20 06:30 08/16/20 06:29 07/18/20 06:00 Multivitamins (Multivitamins) 1 tab DAILY ORAL 07/17/20 09:00 08/16/20 08:59 07/18/20 09:31 Sennosides (Senokot) 8.6 mg DAILYPRN PRN ORAL Constipation 07/17/20 02:15 08/16/20 02:14 Vancomycin HCl (Vanco pharmacy to dose) 1 ea DAILY PRN MISC Per rx protocol 07/17/20 02:00 08/16/20 01:59 Vancomycin HCl 1 gm/Dextrose 275 ml @ 183.708 mls/hr Q8H IVPB 07/17/20 18:00 07/22/20 17:59 07/18/20 01:49 Assessment/Plan Assessment/Plan IMPRESSION: 1. History of DVT and pulmonary embolism. 2. Vaginal bleeding. 3. Anemia. 4. Lower extremity cellulitis. DISCUSSION: Agree with holding Eliquis due to bleeding and possibility of surgical intervention Will follow Saqib Steel Omar Syed MD Jul 18, 2020 09:43
[2020-07-18 10:29] LABS: BASOPHILS % (AUTO) 0.6 % (0.0-2.0); EOSINOPHILS % (AUTO) 2.4 % (0.0-3.0); HEMOGLOBIN 10.5 G/DL (12.0-16.0); MEAN CORPUSCULAR VOLUME 85 FL (80-99); MONOCYTES % (AUTO) 6.3 % (1.0-10.0); NEUTROPHILS % (AUTO) 79.7 % (45.0-75.0); PLATELET COUNT 241 K/UL (150-450); RED BLOOD COUNT 4.23 M/UL (4.20-5.40); RED CELL DISTRIBUTION WIDTH 18.3 % (11.6-14.8); WHITE BLOOD COUNT 11.7 K/UL (4.8-10.8)
[2020-07-18 10:43] LABS: ANION GAP 6 mmol/L (5-15); BLOOD UREA NITROGEN 16 mg/dL (7-18); CARBON DIOXIDE 34 MMOL/L (21-32); CHLORIDE 101 MMOL/L (98-107); CREATININE 0.8 MG/DL (0.55-1.30); PHOSPHORUS 3.9 MG/DL (2.5-4.9); POTASSIUM 3.4 MMOL/L (3.5-5.1); SODIUM 141 MMOL/L (136-145)
--- NOTE | 2020-07-18 11:00 | Surgery Progress Note ---
Surgery Progress Note Subjective Symptoms: improved, tolerating diet, passing flatus Additional Comments ambulatory feels better dressings going well Objective Last 24 Hour Vital Signs Date Time Temp Pulse Resp B/P (MAP) Pulse Ox O2 Delivery O2 Flow Rate FiO2 07/18/20 09:33 86 126/72 07/18/20 08:00 97.2 86 20 126/72 (90) 16 07/18/20 05:30 98.0 93 20 127/83 (98) 100 07/18/20 01:54 97.8 100 20 127/81 (96) 95 07/17/20 20:50 Room Air 07/17/20 20:00 96.8 85 20 126/80 (95) 98 07/17/20 16:00 98.5 86 19 144/79 (100) 97 07/17/20 11:35 98.2 90 19 130/73 (92) 95 I&O Intake and Output 0 07/17/20 07/18/20 19:00 07:00 Intake Total 1080 ml 775 ml Balance 1080 ml 775 ml Intake Oral 1080 ml 500 ml IV Total 275 ml # Voids 4 3 # Bowel Movements 1 Dressing: dry Wound: clean Cardiovascular: RSR Respiratory: clear Abdomen: soft, flat, non-tender, present bowel sounds, non-distended Extremities: edema, no tenderness, no cyanosis, other Laboratory Tests Test 07/17/20 11:29 07/17/20 16:39 07/17/20 19:58 07/18/20 06:26 POC Whole Blood Glucose 114 MG/DL (74-106) H 117 MG/DL (74-106) H Pending Pending Test 07/18/20 09:30 White Blood Count 11.7 K/UL (4.8-10.8) H Red Blood Count 4.23 M/UL (4.20-5.40) Hemoglobin 10.5 G/DL (12.0-16.0) L Hematocrit 36.0 % (37.0-47.0) L Mean Corpuscular Volume 85 FL (80-99) Mean Corpuscular Hemoglobin 24.9 PG (27.0-31.0) L Mean Corpuscular Hemoglobin Concent 29.2 G/DL (32.0-36.0) L Red Cell Distribution Width 18.3 % (11.6-14.8) H Platelet Count 241 K/UL (150-450) Mean Platelet Volume 6.9 FL (6.5-10.1) Neutrophils (%) (Auto) 79.7 % (45.0-75.0) H Lymphocytes (%) (Auto) 11.0 % (20.0-45.0) L Monocytes (%) (Auto) 6.3 % (1.0-10.0) Eosinophils (%) (Auto) 2.4 % (0.0-3.0) Basophils (%) (Auto) 0.6 % (0.0-2.0) Sodium Level 141 MMOL/L (136-145) Potassium Level 3.4 MMOL/L (3.5-5.1) L Chloride Level 101 MMOL/L (98-107) Carbon Dioxide Level 34 MMOL/L (21-32) H Anion Gap 6 mmol/L (5-15) Blood Urea Nitrogen 16 mg/dL (7-18) Creatinine 0.8 MG/DL (0.55-1.30) Estimat Glomerular Filtration Rate > 60 mL/min (>60) Glucose Level 128 MG/DL (74-106) H Calcium Level 9.0 MG/DL (8.5-10.1) Phosphorus Level 3.9 MG/DL (2.5-4.9) Magnesium Level 2.1 MG/DL (1.8-2.4) Vancomycin Level Trough Pending Plan Problems: (1) Morbid obesity (2) Acute cholecystitis (3) Acute cholecystitis (4) Hypokalemia (5) Hypokalemia (6) Atypical psychosis (7) Acute blood loss anemia (8) Thrush (9) Gout (10) Morbid obesity (11) Anemia (12) Back pain (13) Cellulitis Assessment & Plan: 59-year-old female chronic lower extremity edema cellulitis bilateral prior currently bilateral edema but cellulitis on the left side. Lateral aspect distal small skin partial-thickness abrasion 1 cm x 1 cm identified. Warm difficult to check pulses given size of the extremity overall morbidly obese BMI 55. No abscess identified no fluid collections identified generalized edema and cellulitis noted. No acute surgical intervention planned at this time. Arterial and venous duplexes will be ordered. Okay for diet. Keep bilateral lower extremities elevated while in bed. Activity as tolerated. Wash left lower extremity foot and ankle with normal saline. Apply Thera honey cover with Xeroform ABD and wrap with gauze. Daily and as needed. Antibiotics per infectious disease. Will follow with recommendations. Thank you for letting participate patient's care (14) Cough (15) Diarrhea (16) SOB (shortness of breath) (17) Flank pain (18) Leukocytosis (19) Leukocytosis (20) Post-menopausal bleeding (21) Vaginal bleeding (22) Hypoalbuminemia (23) Sepsis (24) Rectal bleeding (25) Venous stasis (26) Hypertension (27) Pneumonitis (28) Obesity (29) HTN (hypertension) (30) Chronic pain (31) Muscle ache (32) Cellulitis, leg (33) Cellulitis, leg (34) Clostridium difficile colitis (35) ACS (acute coronary syndrome) (36) Abnormal laboratory test result (37) Diabetes type 2, controlled (38) Factor V Leiden (39) Shoulder pain, right (40) Cellulitis of right leg (41) Cellulitis of right leg (42) BMI 60.0-69.9, adult (43) Chronic wound of extremity (44) Flank pain, acute (45) Injury of lower extremity (46) Left leg cellulitis (47) Left leg cellulitis (48) Factor 5 Leiden mutation, heterozygous (49) DVT, bilateral lower limbs (50) Elevated lactic acid level (51) Bilateral cellulitis of lower leg (52) Bilateral lower leg cellulitis (53) Poor intravenous access (54) DVT, recurrent, lower extremity, acute and chronic (55) Deep vein thrombosis (DVT) of left lower extremity (56) COVID-19 ruled out by laboratory testing (57) Acute DVT of LLE (58) lives on own at home (59) lateral posterior left leg superficial skin breakdown ulcer (60) abdominal wall swelling (61) leg pain (62) probable abscess Chuy Damian Jul 18, 2020 11:00
[2020-07-18 12:00] VITALS: BP 132/81
--- NOTE | 2020-07-18 14:00 | NUR ---
CASE MANAGEMENT: INITIAL REVIEW 59 YO F BRANDIE FROM [facility] CC: VAGINAL BLEEDING PMHx: HTN. ASTHMA. DM. CVA. SI:LEFT LEG CELLULITIS VS: T 97.3 HR 84 RR 18 B/P 124/76 SATS 93% ON RA LABS: WBC 12.8 BUN 23 GLU 108 IS: NO ED MEDS PATIENT ADMITTED TO MED/SURG 07/16/2020 @ 2332 DCP: SNF PLAN OF CARE: IV ANTIBX WOUND CARE
[2020-07-18 16:00] VITALS: BP 138/98
[2020-07-18] MEDS ORDERED: Eliquis 2.5mg tablet ORAL SCH (18:00)
[2020-07-18] MEDS: Eliquis 2.5mg tablet ORAL SCH (18:13)
--- NOTE | 2020-07-18 18:15 | Internal Med Progress Note ---
Subjective Physician Name Nikki Wyatt Attending Physician Nikki Wyatt M.D. Current Medications Medications (Trade) Dose Ordered Sig/Key Route PRN Reason Start Time Stop Time Status Last Admin Dose Admin Acetaminophen (Tylenol) 650 mg Q6H PRN ORAL Mild Pain (Pain Scale 1-3) 07/17/20 02:15 08/16/20 02:14 07/17/20 11:50 Acetaminophen/ Hydrocodone Bitart ([place] 7.5/325) 1 tab Q4H PRN ORAL pain 4-10 07/17/20 02:15 07/24/20 02:14 Albuterol/ Ipratropium (Albuterol/ Ipratropium) 3 ml Q6HRT PRN HHN Shortness of Breath 07/17/20 02:15 07/22/20 02:14 Allopurinol (Zyloprim) 100 mg DAILY ORAL 07/17/20 09:00 08/16/20 08:59 07/18/20 09:31 Amlodipine Besylate (Norvasc) 5 mg DAILY ORAL 07/17/20 09:00 08/16/20 08:59 07/18/20 09:33 Apixaban (Eliquis) 2.5 mg BID ORAL 07/18/20 18:00 10/16/20 17:59 Dextrose (Dextrose 50%) 25 ml Q30M PRN IV Hypoglycemia 07/17/20 01:30 10/15/20 01:29 Dextrose (Dextrose 50%) 50 ml Q30M PRN IV Hypoglycemia 07/17/20 01:30 10/15/20 01:29 Docusate Sodium (Colace) 100 mg DAILY ORAL 07/17/20 09:00 08/16/20 08:59 07/18/20 09:34 Famotidine (Pepcid) 40 mg DAILY ORAL 07/17/20 09:00 10/15/20 08:59 07/18/20 09:34 Ferrous Gluconate (Fergon) 324 mg BID ORAL 07/17/20 18:00 10/15/20 17:59 07/18/20 17:17 Furosemide (Lasix) 40 mg DAILY ORAL 07/17/20 09:00 08/16/20 08:59 07/18/20 09:31 Gabapentin (Neurontin) 100 mg Q12H PRN ORAL NEUROPATHIC PAIN 07/17/20 02:15 08/16/20 02:14 Hydromorphone HCl (Dilaudid) 0.5 mg Q4H PRN IVP For Pain 07/17/20 13:30 07/24/20 13:29 07/18/20 17:56 Magnesium Hydroxide (Mom) 10 ml Q6H PRN ORAL HEARTBURN 07/17/20 07:30 08/16/20 07:29 07/17/20 07:35 Magnesium Oxide (Mag-Ox 400mg) 400 mg BID ORAL 07/17/20 09:00 08/16/20 08:59 07/18/20 17:17 Metformin HCl (Glucophage) 500 mg BIAC ORAL 07/17/20 06:30 08/16/20 06:29 07/18/20 17:17 Multivitamins (Multivitamins) 1 tab DAILY ORAL 07/17/20 09:00 08/16/20 08:59 07/18/20 09:31 Sennosides (Senokot) 8.6 mg DAILYPRN PRN ORAL Constipation 07/17/20 02:15 08/16/20 02:14 [facility] 1 ea DAILY PRN MISC Per rx protocol 07/17/20 02:00 08/16/20 01:59 Vancomycin HCl 1 gm/Dextrose 275 ml @ 183.708 mls/hr Q8H IVPB 07/17/20 18:00 07/22/20 17:59 07/18/20 17:19 Allergies: Coded Allergies: SULFA (SULFONAMIDE ANTIBIOTICS) (Unverified Allergy, Unknown, 05/02/15) allergy history per Dr. Robert BAUER Limited/Unobtainable: No Constitutional: Reports: weakness HEENT: Denies: no symptoms, eye pain, blurred vision, tearing, double vision, ear pain, ear discharge, nose pain, nose congestion, throat pain, throat swelling, mouth pain, mouth swelling, other Cardiovascular: Denies: no symptoms, chest pain, edema, irregular heart rate, lightheadedness, palpitations, syncope, other Respiratory: Denies: no symptoms, cough, orthopnea, shortness of breath, SOB with excertion, SOB at rest, sputum, stridor, wheezing, other Gastrointestinal/Abdominal: Denies: no symptoms, abdomen distended, abdominal pain, black stools, tarry stools, blood in stool, constipated, diarrhea, difficulty swallowing, nausea, poor appetite, poor fluid intake, rectal bleeding, vomiting, other Genitourinary: Denies: no symptoms, burning, discharge, frequency, flank pain, hematuria, incontinence, pain, urgency, other Neurologic/Psychiatric: Denies: no symptoms, anxiety, depressed, emotional problems, headache, numbness, paresthesia, pre-existing deficit, seizure, tingling, tremors, weakness, other Subjective K low repleted hemoglobin stable resuming apixaban today Objective Last Vital Signs Date Time Temp Pulse Resp B/P (MAP) Pulse Ox O2 Delivery O2 Flow Rate FiO2 07/18/20 16:00 97.1 93 19 138/98 (111) 98 07/18/20 09:00 Room Air General Appearance: no apparent distress, alert EENT: PERRL/EOMI, normal ENT inspection Neck: non-tender, normal alignment Cardiovascular: normal peripheral pulses, normal rate, regular rhythm Respiratory/Chest: chest wall non-tender, lungs clear, normal breath sounds Abdomen: normal bowel sounds, non tender, soft Neurologic: alert, 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 Laboratory Tests Test 07/17/20 19:58 07/18/20 06:26 07/18/20 09:30 07/18/20 11:46 POC Whole Blood Glucose Pending Pending Pending White Blood Count 11.7 K/UL (4.8-10.8) H Red Blood Count 4.23 M/UL (4.20-5.40) Hemoglobin 10.5 G/DL (12.0-16.0) L Hematocrit 36.0 % (37.0-47.0) L Mean Corpuscular Volume 85 FL (80-99) Mean Corpuscular Hemoglobin 24.9 PG (27.0-31.0) L Mean Corpuscular Hemoglobin Concent 29.2 G/DL (32.0-36.0) L Red Cell Distribution Width 18.3 % (11.6-14.8) H Platelet Count 241 K/UL (150-450) Mean Platelet Volume 6.9 FL (6.5-10.1) Neutrophils (%) (Auto) 79.7 % (45.0-75.0) H Lymphocytes (%) (Auto) 11.0 % (20.0-45.0) L Monocytes (%) (Auto) 6.3 % (1.0-10.0) Eosinophils (%) (Auto) 2.4 % (0.0-3.0) Basophils (%) (Auto) 0.6 % (0.0-2.0) Sodium Level 141 MMOL/L (136-145) Potassium Level 3.4 MMOL/L (3.5-5.1) L Chloride Level 101 MMOL/L (98-107) Carbon Dioxide Level 34 MMOL/L (21-32) H Anion Gap 6 mmol/L (5-15) Blood Urea Nitrogen 16 mg/dL (7-18) Creatinine 0.8 MG/DL (0.55-1.30) Estimat Glomerular Filtration Rate > 60 mL/min (>60) Glucose Level 128 MG/DL (74-106) H Calcium Level 9.0 MG/DL (8.5-10.1) Phosphorus Level 3.9 MG/DL (2.5-4.9) Magnesium Level 2.1 MG/DL (1.8-2.4) Vancomycin Level Trough 14.0 ug/mL (5.0-12.0) H Test 07/18/20 17:28 POC Whole Blood Glucose 143 MG/DL (74-106) H Microbiology Date/Time Source Procedure Growth Status 07/16/20 23:49 Other Gram Stain - Final Resulted 07/16/20 23:49 Other Wound Culture Pending Resulted Intake and Output 07/17/20 07/18/20 19:00 07:00 Intake Total 1080 ml 775 ml Balance 1080 ml 775 ml Intake Oral 1080 ml 500 ml IV Total 275 ml # Voids 4 3 # Bowel Movements 1 Assessment/Plan Assessment/Plan #Bleeding from Piccline #vaginal bleeding? #h/o DVT/PE #HTN #LE cellulitis #obesity - admit inpatient - ID eval - pulm eval - resume apixaban when bleeding r/oed - monitor hemoglobin - IV antibiotic per ID - amlodipine 5mg daily - laix 40 daily - monitor lytes - wound care - gen surg Nikki Major M.D. Jul 18, 2020 18:15
--- NOTE | 2020-07-18 19:31 | NUR ---
NURSE NOTES: The patient is alert and oriented x4 and doesn't seem to be in any active distress at this time.The Resp is even and unlabored and she is on room air well tolerated.She is able to use the bedside commode with minimal assistance needed. She has a left hand 24g that is patent and asymptomatic.The bilateral lower extremities are swollen with leg leg noted with cellulitis.The bed in lowest level and call light within easy reach. will continue to monitor as indicated
[2020-07-18 20:00] VITALS: BP 121/68
[2020-07-19] VITALS: BP 115/73
[2020-07-19] MEDS: Vancomycin 1gm/D5W 275ml IVPB SCH ×4 (02:20→09:24)
[2020-07-19] MEDS: HYDROmorphone 1mg/ml Carpuject IVP PRN ×4 (03:44→21:50)
[2020-07-19 04:00] VITALS: BP 133/80
--- NOTE | 2020-07-19 05:34 | NUR ---
NURSE NOTES: The patient was magen to sleep for about 6 hrs last night but also complained of pain every 4 hrs as indicated.She received her pain medication and was able to relaxed. will continue to monitor as indicated.
[2020-07-19] MEDS: metFORMIN 500mg tab ORAL SCH ×2 (06:12→16:03)
--- NOTE | 2020-07-19 06:19 | Hematology/Onc Progress Note ---
Assessment/Plan Assessment/Plan Assessment/Plan # DVT (on AC) of the left lower extremity popliteal vein -- likely related 2/2 inflammatory process and stasis, cellulitis making clot return, has been dealing with recurrent clots since 2011. Have discussed extensively with her the prior treatments she has received, which have included coumadin, eliquis, xarelto, lovenox --> given h/h stable, okay to proceed with anticoag, in the past did well on xarelto and only reason it was changed was because of drug interaction --> at this time was on apixaban as outpatient --> given holding off on surg intervention, apixaban resumed # Anemia of iron deficiency, ferritin is very low --> continue on po ferrous gluconate --> Monitor closely --> repeat ferritin, r/o gi bleed --> consider iv iron if worsens --> hgb 10.5 # B/l leg swelling/pain/redness. Pt notes symptoms for the past few days. She has a history of cellulitis of leg previously treated with antibiotics. --> per ID vanc # Vaginal bleed # Hypokalemia # Dvt ppx apixaban Appreciate consultation and dw Rn Subjective Cardiovascular: Denies: no symptoms, chest pain, edema, irregular heart rate, lightheadedness, palpitations, syncope, other Respiratory: Denies: no symptoms, cough, shortness of breath, SOB with excertion, SOB at rest, sputum, wheezing, other Gastrointestinal/Abdominal: Denies: no symptoms, abdomen distended, abdominal pain, black stools, tarry stools, blood in stool, constipated, diarrhea, difficulty swallowing, nausea, poor appetite, poor fluid intake, rectal bleeding, vomiting, other Hematologic/Lymphatic: Denies: no symptoms, anemia, easy bleeding, easy bruising, adenopathy, other Allergies: Coded Allergies: SULFA (SULFONAMIDE ANTIBIOTICS) (Unverified Allergy, Unknown, 05/02/15) allergy history per Dr. Jones Subjective 07/19 remains on vanc for lower ext cellulitis, has been restarted on apixaban po Objective Objective Current Medications Medications (Trade) Dose Ordered Sig/Key Route PRN Reason Start Time Stop Time Status Last Admin Dose Admin Acetaminophen (Tylenol) 650 mg Q6H PRN ORAL Mild Pain (Pain Scale 1-3) 07/17/20 02:15 45/21 02:14 07/17/20 11:50 Acetaminophen/ Hydrocodone Bitart ([place] 7.5/325) 1 tab Q4H PRN ORAL pain 4-10 07/17/20 02:15 07/24/20 02:14 Albuterol/ Ipratropium (Albuterol/ Ipratropium) 3 ml Q6HRT PRN HHN Shortness of Breath 07/17/20 02:15 07/22/20 02:14 Allopurinol (Zyloprim) 100 mg DAILY ORAL 07/17/20 09:00 08/16/20 08:59 07/18/20 09:31 Amlodipine Besylate (Norvasc) 5 mg DAILY ORAL 07/17/20 09:00 08/16/20 08:59 07/18/20 09:33 Apixaban (Eliquis) 2.5 mg BID ORAL 07/18/20 18:00 10/16/20 17:59 07/18/20 18:13 Dextrose (Dextrose 50%) 25 ml Q30M PRN IV Hypoglycemia 07/17/20 01:30 10/15/20 01:29 Dextrose (Dextrose 50%) 50 ml Q30M PRN IV Hypoglycemia 07/17/20 01:30 10/15/20 01:29 Docusate Sodium (Colace) 100 mg DAILY ORAL 07/17/20 09:00 08/16/20 08:59 07/18/20 09:34 Famotidine (Pepcid) 40 mg DAILY ORAL 07/17/20 09:00 10/15/20 08:59 07/18/20 09:34 Ferrous Gluconate (Fergon) 324 mg BID ORAL 07/17/20 18:00 10/15/20 17:59 07/18/20 17:17 Furosemide (Lasix) 40 mg DAILY ORAL 07/17/20 09:00 08/16/20 08:59 07/18/20 09:31 Gabapentin (Neurontin) 100 mg Q12H PRN ORAL NEUROPATHIC PAIN 07/17/20 02:15 08/16/20 02:14 Hydromorphone HCl (Dilaudid) 0.5 mg Q4H PRN IVP For Pain 07/17/20 13:30 07/24/20 13:29 07/19/20 03:44 Magnesium Hydroxide (Mom) 10 ml Q6H PRN ORAL HEARTBURN 07/17/20 07:30 08/16/20 07:29 07/17/20 07:35 Magnesium Oxide (Mag-Ox 400mg) 400 mg BID ORAL 07/17/20 09:00 08/16/20 08:59 07/18/20 17:17 Metformin HCl (Glucophage) 500 mg BIAC ORAL 07/17/20 06:30 08/16/20 06:29 07/19/20 06:12 Multivitamins (Multivitamins) 1 tab DAILY ORAL 07/17/20 09:00 08/16/20 08:59 07/18/20 09:31 Sennosides (Senokot) 8.6 mg DAILYPRN PRN ORAL Constipation 07/17/20 02:15 08/16/20 02:14 Vancomycin HCl ([facility] pharmacy to dose) 1 ea DAILY PRN MISC Per rx protocol 07/17/20 02:00 08/16/20 01:59 Vancomycin HCl 1 gm/Dextrose 275 ml @ 183.708 mls/hr Q8H IVPB 07/17/20 18:00 07/22/20 17:59 07/19/20 02:20 Last 24 Hour Vital Signs Date Time Temp Pulse Resp B/P (MAP) Pulse Ox O2 Delivery O2 Flow Rate FiO2 07/19/20 04:00 97.9 84 20 133/80 (97) 94 07/19/20 00:00 98.2 87 18 115/73 (87) 94 07/18/20 20:00 97.9 88 18 121/68 (85) 94 07/18/20 18:30 Room Air 07/18/20 18:26 97.1 07/18/20 16:00 97.1 93 19 138/98 (111) 98 07/18/20 12:57 97.3 07/18/20 12:00 97.3 85 16 132/81 (98) 96 07/18/20 09:33 86 126/72 07/18/20 09:00 Room Air 07/18/20 08:00 97.2 86 20 126/72 (90) 96 07/18/20 05:30 98.0 93 20 127/83 (98) 100 07/18/20 01:54 97.8 100 20 127/81 (96) 95 07/17/20 20:50 Room Air 07/17/20 20:00 96.8 85 20 126/80 (95) 98 07/17/20 16:00 98.5 86 19 144/79 (100) 97 07/17/20 11:35 98.2 90 19 130/73 (92) 95 07/17/20 09:00 Room Air 07/17/20 08:45 103 105/79 07/17/20 08:00 98.0 103 19 105/79 (88) 93 Intake and Output 07/18/20 07/19/20 19:00 07:00 Intake Total 1390.000 ml 450 ml Balance 1390.000 ml 450 ml Intake Oral 840 ml 450 ml IV Total 550.000 ml # Voids 4 3 # Bowel Movements 1 Labs Test 07/16/20 23:10 07/17/20 05:25 07/17/20 07:00 07/17/20 11:29 White Blood Count 12.8 K/UL (4.8-10.8) 11.7 K/UL (4.8-10.8) Red Blood Count 4.50 M/UL (4.20-5.40) 4.32 M/UL (4.20-5.40) Hemoglobin 11.0 G/DL (12.0-16.0) 10.7 G/DL (12.0-16.0) Hematocrit 37.7 % (37.0-47.0) 36.7 % (37.0-47.0) Mean Corpuscular Volume 84 FL (80-99) 85 FL (80-99) Mean Corpuscular Hemoglobin 24.5 PG (27.0-31.0) 24.7 PG (27.0-31.0) Mean Corpuscular Hemoglobin Concent 29.3 G/DL (32.0-36.0) 29.1 G/DL (32.0-36.0) Red Cell Distribution Width 18.0 % (11.6-14.8) 18.1 % (11.6-14.8) Platelet Count 262 K/UL (150-450) 246 K/UL (150-450) Mean Platelet Volume 7.4 FL (6.5-10.1) 6.8 FL (6.5-10.1) Neutrophils (%) (Auto) 75.8 % (45.0-75.0) 77.2 % (45.0-75.0) Lymphocytes (%) (Auto) 13.8 % (20.0-45.0) 12.8 % (20.0-45.0) Monocytes (%) (Auto) 7.1 % (1.0-10.0) 6.4 % (1.0-10.0) Eosinophils (%) (Auto) 2.4 % (0.0-3.0) 2.6 % (0.0-3.0) Basophils (%) (Auto) 1.0 % (0.0-2.0) 0.9 % (0.0-2.0) Prothrombin Time 10.7 SEC (9.30-11.50) Prothromb Time International Ratio 1.0 (0.9-1.1) Activated Partial Thromboplast Time 26 SEC (23-33) Sodium Level 137 MMOL/L (136-145) 139 MMOL/L (136-145) Potassium Level 3.6 MMOL/L (3.5-5.1) 3.1 MMOL/L (3.5-5.1) Chloride Level 99 MMOL/L (98-107) 99 MMOL/L (98-107) Carbon Dioxide Level 31 MMOL/L (21-32) 35 MMOL/L (21-32) Anion Gap 7 mmol/L (5-15) 6 mmol/L (5-15) Blood Urea Nitrogen 23 mg/dL (7-18) 20 mg/dL (7-18) Creatinine 1.0 MG/DL (0.55-1.30) 0.9 MG/DL (0.55-1.30) Estimat Glomerular Filtration Rate > 60 mL/min (>60) > 60 mL/min (>60) Glucose Level 108 MG/DL (74-106) 110 MG/DL (74-106) Calcium Level 9.4 MG/DL (8.5-10.1) 8.9 MG/DL (8.5-10.1) Phosphorus Level 3.9 MG/DL (2.5-4.9) Magnesium Level 1.7 MG/DL (1.8-2.4) Vancomycin Level Trough 2.7 ug/mL (5.0-12.0) POC Whole Blood Glucose 114 MG/DL (74-106) Test 07/17/20 16:39 07/17/20 19:58 07/18/20 06:26 07/18/20 09:30 POC Whole Blood Glucose 117 MG/DL (74-106) White Blood Count 11.7 K/UL (4.8-10.8) Red Blood Count 4.23 M/UL (4.20-5.40) Hemoglobin 10.5 G/DL (12.0-16.0) Hematocrit 36.0 % (37.0-47.0) Mean Corpuscular Volume 85 FL (80-99) Mean Corpuscular Hemoglobin 24.9 PG (27.0-31.0) Mean Corpuscular Hemoglobin Concent 29.2 G/DL (32.0-36.0) Red Cell Distribution Width 18.3 % (11.6-14.8) Platelet Count 241 K/UL (150-450) Mean Platelet Volume 6.9 FL (6.5-10.1) Neutrophils (%) (Auto) 79.7 % (45.0-75.0) Lymphocytes (%) (Auto) 11.0 % (20.0-45.0) Monocytes (%) (Auto) 6.3 % (1.0-10.0) Eosinophils (%) (Auto) 2.4 % (0.0-3.0) Basophils (%) (Auto) 0.6 % (0.0-2.0) Sodium Level 141 MMOL/L (136-145) Potassium Level 3.4 MMOL/L (3.5-5.1) Chloride Level 101 MMOL/L (98-107) Carbon Dioxide Level 34 MMOL/L (21-32) Anion Gap 6 mmol/L (5-15) Blood Urea Nitrogen 16 mg/dL (7-18) Creatinine 0.8 MG/DL (0.55-1.30) Estimat Glomerular Filtration Rate > 60 mL/min (>60) Glucose Level 128 MG/DL (74-106) Calcium Level 9.0 MG/DL (8.5-10.1) Phosphorus Level 3.9 MG/DL (2.5-4.9) Magnesium Level 2.1 MG/DL (1.8-2.4) Vancomycin Level Trough 14.0 ug/mL (5.0-12.0) Test 07/18/20 11:46 07/18/20 17:28 07/19/20 06:12 POC Whole Blood Glucose 143 MG/DL (74-106) 160 MG/DL (74-106) Height (Feet): 6 Height (Inches): 1.00 Weight (Pounds): 420 Objective Gen: nad Pulm: ctab, no cwr CV: rrr, no mgr Abd: soft, nt, nd Ext: left lower ext cellulitis+ Dinesh Rodríguez MD Jul 19, 2020 06:19
[2020-07-19 07:07] LABS: ANION GAP 7 mmol/L (5-15); BLOOD UREA NITROGEN 16 mg/dL (7-18); CALCIUM 8.9 MG/DL (8.5-10.1); CARBON DIOXIDE 32 MMOL/L (21-32); CHLORIDE 102 MMOL/L (98-107); CREATININE 0.9 MG/DL (0.55-1.30); PHOSPHORUS 3.4 MG/DL (2.5-4.9); POTASSIUM 3.5 MMOL/L (3.5-5.1); SODIUM 141 MMOL/L (136-145)
[2020-07-19 07:08] LABS: BASOPHILS % (AUTO) 0.8 % (0.0-2.0); EOSINOPHILS % (AUTO) 2.6 % (0.0-3.0); HEMATOCRIT 37.1 % (37.0-47.0); HEMOGLOBIN 10.7 G/DL (12.0-16.0); MEAN CORPUSCULAR VOLUME 86 FL (80-99); MONOCYTES % (AUTO) 6.5 % (1.0-10.0); NEUTROPHILS % (AUTO) 79.1 % (45.0-75.0); PLATELET COUNT 223 K/UL (150-450); RED CELL DISTRIBUTION WIDTH 18.1 % (11.6-14.8); WHITE BLOOD COUNT 11.5 K/UL (4.8-10.8)
--- NOTE | 2020-07-19 07:59 | NUR ---
NURSE HAND-OFF: Important Events on Shift:Alert cooperative Patient Status: Diet: Pending Orders: Pending Results/Labs: Pending MD notification: Latest Vital Signs: Temperature 97.9 , Pulse 84 , B/P 133 /80 , Respiratory Rate 20 , O2 SAT 94 , Room Air, O2 Flow Rate . Vital Sign Comment: Latest [place] Fall Score: 45 Fall Risk: High Risk Safety Measures: Call light Within Reach, Bed Alarm Zone 1, Side Rails Side Rails x2, Bed position Low and Locked. Fall Precautions: Yellow Socks Report given to .
[2020-07-19 08:00] VITALS: BP 126/88
--- NOTE | 2020-07-19 08:00 | NUR ---
NURSE NOTES: Received hand-off report from Mart Arvizu RN. Patient tolerated breakfast this morning, no aspiration noted, alert and oriented x4, sitting on the edge of bed, demonstrates strength 5/5 bilateral lower extremities, breathing even and unlabored resp 15/min. Bedside commode bedside, cane within reach, contact precautions followed and educated patient on risk of falls. Bed in lowest and locked position, bed alarm on, call light within reach, side rails upx2.
--- NOTE | 2020-07-19 08:24 | Internal Med Progress Note ---
Subjective Physician Name Nikki Wyatt Attending Physician Nikki Wyatt M.D. Current Medications Medications (Trade) Dose Ordered Sig/Key Route PRN Reason Start Time Stop Time Status Last Admin Dose Admin Acetaminophen (Tylenol) 650 mg Q6H PRN ORAL Mild Pain (Pain Scale 1-3) 07/17/20 02:15 08/16/20 02:14 07/17/20 11:50 Acetaminophen/ Hydrocodone Bitart ([place] 7.5/325) 1 tab Q4H PRN ORAL pain 4-10 07/17/20 02:15 07/24/20 02:14 Albuterol/ Ipratropium (Albuterol/ Ipratropium) 3 ml Q6HRT PRN HHN Shortness of Breath 07/17/20 02:15 07/22/20 02:14 Allopurinol (Zyloprim) 100 mg DAILY ORAL 07/17/20 09:00 08/16/20 08:59 07/18/20 09:31 Amlodipine Besylate (Norvasc) 5 mg DAILY ORAL 07/17/20 09:00 08/16/20 08:59 07/18/20 09:33 Apixaban (Eliquis) 2.5 mg BID ORAL 07/18/20 18:00 10/16/20 17:59 07/18/20 18:13 Dextrose (Dextrose 50%) 25 ml Q30M PRN IV Hypoglycemia 07/17/20 01:30 10/15/20 01:29 Dextrose (Dextrose 50%) 50 ml Q30M PRN IV Hypoglycemia 07/17/20 01:30 10/15/20 01:29 Docusate Sodium (Colace) 100 mg DAILY ORAL 07/17/20 09:00 08/16/20 08:59 07/18/20 09:34 Famotidine (Pepcid) 40 mg DAILY ORAL 07/17/20 09:00 10/15/20 08:59 07/18/20 09:34 Ferrous Gluconate (Fergon) 324 mg BID ORAL 07/17/20 18:00 10/15/20 17:59 07/18/20 17:17 Furosemide (Lasix) 40 mg DAILY ORAL 07/17/20 09:00 08/16/20 08:59 07/18/20 09:31 Gabapentin (Neurontin) 100 mg Q12H PRN ORAL NEUROPATHIC PAIN 07/17/20 02:15 08/16/20 02:14 Hydromorphone HCl (Dilaudid) 0.5 mg Q4H PRN IVP For Pain 07/17/20 13:30 07/24/20 13:29 07/19/20 03:44 Magnesium Hydroxide (Mom) 10 ml Q6H PRN ORAL HEARTBURN 07/17/20 07:30 08/16/20 07:29 07/17/20 07:35 Magnesium Oxide (Mag-Ox 400mg) 400 mg BID ORAL 07/17/20 09:00 08/16/20 08:59 07/18/20 17:17 Metformin HCl (Glucophage) 500 mg BIAC ORAL 07/17/20 06:30 08/16/20 06:29 07/19/20 06:12 Multivitamins (Multivitamins) 1 tab DAILY ORAL 07/17/20 09:00 08/16/20 08:59 07/18/20 09:31 Sennosides (Senokot) 8.6 mg DAILYPRN PRN ORAL Constipation 07/17/20 02:15 08/16/20 02:14 Vancomycin HCl (Vanco pharmacy to dose) 1 ea DAILY PRN MISC Per rx protocol 07/17/20 02:00 08/16/20 01:59 Vancomycin HCl 1 gm/Dextrose 275 ml @ 183.708 mls/hr Q8H IVPB 07/17/20 18:00 07/22/20 17:59 07/19/20 02:20 Allergies: Coded Allergies: SULFA (SULFONAMIDE ANTIBIOTICS) (Unverified Allergy, Unknown, 05/02/15) allergy history per Dr. Robert BAUER Limited/Unobtainable: No Constitutional: Reports: weakness Subjective K low repleted hemoglobin stable resuming apixaban today Objective Last Vital Signs Date Time Temp Pulse Resp B/P (MAP) Pulse Ox O2 Delivery O2 Flow Rate FiO2 07/19/20 04:00 97.9 84 20 133/80 (97) 94 07/18/20 18:30 Room Air Laboratory Tests Test 07/18/20 09:30 07/18/20 11:46 07/18/20 17:28 07/19/20 05:20 White Blood Count 11.7 K/UL (4.8-10.8) H 11.5 K/UL (4.8-10.8) H Red Blood Count 4.23 M/UL (4.20-5.40) 4.30 M/UL (4.20-5.40) Hemoglobin 10.5 G/DL (12.0-16.0) L 10.7 G/DL (12.0-16.0) L Hematocrit 36.0 % (37.0-47.0) L 37.1 % (37.0-47.0) Mean Corpuscular Volume 85 FL (80-99) 86 FL (80-99) Mean Corpuscular Hemoglobin 24.9 PG (27.0-31.0) L 24.8 PG (27.0-31.0) L Mean Corpuscular Hemoglobin Concent 29.2 G/DL (32.0-36.0) L 28.7 G/DL (32.0-36.0) L Red Cell Distribution Width 18.3 % (11.6-14.8) H 18.1 % (11.6-14.8) H Platelet Count 241 K/UL (150-450) 223 K/UL (150-450) Mean Platelet Volume 6.9 FL (6.5-10.1) 7.1 FL (6.5-10.1) Neutrophils (%) (Auto) 79.7 % (45.0-75.0) H 79.1 % (45.0-75.0) H Lymphocytes (%) (Auto) 11.0 % (20.0-45.0) L 11.0 % (20.0-45.0) L Monocytes (%) (Auto) 6.3 % (1.0-10.0) 6.5 % (1.0-10.0) Eosinophils (%) (Auto) 2.4 % (0.0-3.0) 2.6 % (0.0-3.0) Basophils (%) (Auto) 0.6 % (0.0-2.0) 0.8 % (0.0-2.0) Sodium Level 141 MMOL/L (136-145) 141 MMOL/L (136-145) Potassium Level 3.4 MMOL/L (3.5-5.1) L 3.5 MMOL/L (3.5-5.1) Chloride Level 101 MMOL/L (98-107) 102 MMOL/L (98-107) Carbon Dioxide Level 34 MMOL/L (21-32) H 32 MMOL/L (21-32) Anion Gap 6 mmol/L (5-15) 7 mmol/L (5-15) Blood Urea Nitrogen 16 mg/dL (7-18) 16 mg/dL (7-18) Creatinine 0.8 MG/DL (0.55-1.30) 0.9 MG/DL (0.55-1.30) Estimat Glomerular Filtration Rate > 60 mL/min (>60) > 60 mL/min (>60) Glucose Level 128 MG/DL (74-106) H 157 MG/DL (74-106) H Calcium Level 9.0 MG/DL (8.5-10.1) 8.9 MG/DL (8.5-10.1) Phosphorus Level 3.9 MG/DL (2.5-4.9) 3.4 MG/DL (2.5-4.9) Magnesium Level 2.1 MG/DL (1.8-2.4) 2.0 MG/DL (1.8-2.4) Vancomycin Level Trough 14.0 ug/mL (5.0-12.0) H POC Whole Blood Glucose Pending 143 MG/DL (74-106) H Ferritin 26 NG/ML (8-388) Test 07/19/20 06:12 POC Whole Blood Glucose 160 MG/DL (74-106) H Microbiology Date/Time Source Procedure Growth Status 07/16/20 23:49 Other Gram Stain - Final Resulted 07/16/20 23:49 Other Wound Culture Pending Resulted Intake and Output 07/18/20 07/19/20 19:00 07:00 Intake Total 1390.000 ml 450 ml Balance 1390.000 ml 450 ml Intake Oral 840 ml 450 ml IV Total 550.000 ml # Voids 4 3 # Bowel Movements 1 Assessment/Plan Assessment/Plan #Bleeding from Piccline #vaginal bleeding? #h/o DVT/PE #HTN #LE cellulitis #obesity - admit inpatient - ID eval - pulm eval - resume apixaban when bleeding r/oed - monitor hemoglobin - IV antibiotic per ID - amlodipine 5mg daily - laix 40 daily - monitor lytes - wound care - gen surg Nikki Major M.D. Jul 19, 2020 08:24
[2020-07-19] MEDS: Magnesium Oxide 400mg tab ORAL SCH ×2 (09:22→18:23)
[2020-07-19] MEDS: Docusate 100mg cap ORAL SCH (09:22)
[2020-07-19] MEDS: Furosemide 40mg tab ORAL SCH (09:23)
[2020-07-19] MEDS: Allopurinol 100mg Tab ORAL SCH (09:23)
[2020-07-19] MEDS: Eliquis 2.5mg tablet ORAL SCH ×2 (09:24→18:22)
[2020-07-19] MEDS: Ferrous Gluconate 324 MG TAB ORAL SCH ×2 (09:24→18:23)
--- NOTE | 2020-07-19 09:29 | NUR ---
NURSE NOTES: Administered 0.5mL dilaudid for aching acute pain on left lower leg with reported 7/10 pain level.
--- NOTE | 2020-07-19 09:44 | Pulmonology Progress Note ---
Subjective ROS Limited/Unobtainable: No Interval Events: None new Constitutional: Reports: no symptoms HEENT: Repors: no symptoms Respiratory: Reports: no symptoms Cardiovascular: Reports: no symptoms Gastrointestinal/Abdominal: Reports: no symptoms Genitourinary: Reports: no symptoms Allergies: Coded Allergies: SULFA (SULFONAMIDE ANTIBIOTICS) (Unverified Allergy, Unknown, 05/02/15) allergy history per Dr. Jones Objective Last 24 Hour Vital Signs Date Time Temp Pulse Resp B/P (MAP) Pulse Ox O2 Delivery O2 Flow Rate FiO2 07/19/20 09:23 87 126/88 07/19/20 08:00 97.9 87 20 126/88 (101) 94 07/19/20 04:00 97.9 84 20 133/80 (97) 94 07/19/20 00:00 98.2 87 18 115/73 (87) 94 07/18/20 20:00 97.9 88 18 121/68 (85) 94 07/18/20 18:30 Room Air 07/18/20 18:26 97.1 07/18/20 16:00 97.1 93 19 138/98 (111) 98 07/18/20 12:57 97.3 07/18/20 12:00 97.3 85 16 132/81 (98) 96 Intake and Output 07/18/20 07/19/20 19:00 07:00 Intake Total 1390.000 ml 450 ml Balance 1390.000 ml 450 ml Intake Oral 840 ml 450 ml IV Total 550.000 ml # Voids 4 3 # Bowel Movements 1 General Appearance: no acute distress Respiratory: chest wall non-tender Cardiovascular: normal peripheral pulses Abdomen: normal bowel sounds Extremities: other - LE cellulitis Microbiology Date/Time Source Procedure Growth Status 07/16/20 23:49 Other Gram Stain - Final Resulted 07/16/20 23:49 Other Wound Culture Pending Resulted Laboratory Tests 07/18/20 11:46: POC Whole Blood Glucose [Pending] 07/18/20 17:28: POC Whole Blood Glucose 143H 07/19/20 05:20: White Blood Count 11.5H, Red Blood Count 4.30, Hemoglobin 10.7L, Hematocrit 37.1, Mean Corpuscular Volume 86, Mean Corpuscular Hemoglobin 24.8L, Mean Corpuscular Hemoglobin Concent 28.7L, Red Cell Distribution Width 18.1H, Platelet Count 223, Mean Platelet Volume 7.1, Neutrophils (%) (Auto) 79.1H, Lymphocytes (%) (Auto) 11.0L, Monocytes (%) (Auto) 6.5, Eosinophils (%) (Auto) 2 .6, Basophils (%) (Auto) 0.8, Sodium Level 141, Potassium Level 3.5, Chloride Level 102, Carbon Dioxide Level 32, Anion Gap 7, Blood Urea Nitrogen 16, Creatinine 0.9, Estimat Glomerular Filtration Rate > 60, Glucose Level 157H, Calcium Level 8.9, Phosphorus Level 3.4, Magnesium Level 2.0, Ferritin 26 07/19/20 06:12: POC Whole Blood Glucose 160H Current Medications Medications (Trade) Dose Ordered Sig/Key Route PRN Reason Start Time Stop Time Status Last Admin Dose Admin Acetaminophen (Tylenol) 650 mg Q6H PRN ORAL Mild Pain (Pain Scale 1-3) 07/17/20 02:15 08/16/20 02:14 07/17/20 11:50 Acetaminophen/ Hydrocodone Bitart ([place] 7.5/325) 1 tab Q4H PRN ORAL pain 4-10 07/17/20 02:15 07/24/20 02:14 Albuterol/ Ipratropium (Albuterol/ Ipratropium) 3 ml Q6HRT PRN HHN Shortness of Breath 07/17/20 02:15 07/22/20 02:14 Allopurinol (Zyloprim) 100 mg DAILY ORAL 07/17/20 09:00 08/16/20 08:59 07/19/20 09:23 Amlodipine Besylate (Norvasc) 5 mg DAILY ORAL 07/17/20 09:00 08/16/20 08:59 07/19/20 09:23 Apixaban (Eliquis) 2.5 mg BID ORAL 07/18/20 18:00 10/16/20 17:59 07/19/20 09:24 Dextrose (Dextrose 50%) 25 ml Q30M PRN IV Hypoglycemia 07/17/20 01:30 10/15/20 01:29 Dextrose (Dextrose 50%) 50 ml Q30M PRN IV Hypoglycemia 07/17/20 01:30 10/15/20 01:29 Docusate Sodium (Colace) 100 mg DAILY ORAL 07/17/20 09:00 08/16/20 08:59 07/19/20 09:22 Famotidine (Pepcid) 40 mg DAILY ORAL 07/17/20 09:00 10/15/20 08:59 07/19/20 09:23 Ferrous Gluconate (Fergon) 324 mg BID ORAL 07/17/20 18:00 10/15/20 17:59 07/19/20 09:24 Furosemide (Lasix) 40 mg DAILY ORAL 07/17/20 09:00 08/16/20 08:59 07/19/20 09:23 Gabapentin (Neurontin) 100 mg Q12H PRN ORAL NEUROPATHIC PAIN 07/17/20 02:15 08/16/20 02:14 Hydromorphone HCl (Dilaudid) 0.5 mg Q4H PRN IVP For Pain 07/17/20 13:30 07/24/20 13:29 07/19/20 09:29 Magnesium Hydroxide (Mom) 10 ml Q6H PRN ORAL HEARTBURN 07/17/20 07:30 08/16/20 07:29 07/17/20 07:35 Magnesium Oxide (Mag-Ox 400mg) 400 mg BID ORAL 07/17/20 09:00 08/16/20 08:59 07/19/20 09:22 Metformin HCl (Glucophage) 500 mg BIAC ORAL 07/17/20 06:30 08/16/20 06:29 07/19/20 06:12 Multivitamins (Multivitamins) 1 tab DAILY ORAL 07/17/20 09:00 08/16/20 08:59 07/19/20 09:24 Sennosides (Senokot) 8.6 mg DAILYPRN PRN ORAL Constipation 07/17/20 02:15 08/16/20 02:14 Vancomycin HCl (Vanco pharmacy to dose) 1 ea DAILY PRN MISC Per rx protocol 07/17/20 02:00 08/16/20 01:59 Vancomycin HCl 1 gm/Dextrose 275 ml @ 183.708 mls/hr Q8H IVPB 07/17/20 18:00 07/22/20 17:59 07/19/20 09:24 Assessment/Plan Assessment/Plan 1. History of DVT and pulmonary embolism. - continue Eliquis as an outpatient given no indication for acute surgical intervention per surgery and heme 2. Vaginal bleeding. 3. Anemia. 4. Lower extremity cellulitis. - wound care - no indication for acute surgical intervention per surgery The care for this patient was discussed with my supervising physician Time spent for this case was approximately 31 minutes Mihir York Jul 19, 2020 09:44
--- NOTE | 2020-07-19 10:30 | NUR ---
NURSE NOTES: Dr. Damian present here and gave the order for a PICC line placement today without fluoroscopy. Noted and will notify pharmacy regarding lack of IV Access.
--- NOTE | 2020-07-19 10:40 | NUR ---
NURSE NOTES: Called radiology and informed them that consent form for PICC placement is signed.
[2020-07-19] MEDS ORDERED: Lidocaine 1% Plain 30 ml INJ PRN (10:45)
[2020-07-19] MEDS ORDERED: Heparin1,000 units/500ml Premix(Conc:2 units/ml) IV PRN (10:45)
--- NOTE | 2020-07-19 11:07 | NUR ---
NURSE NOTES: Vancomycin was never administered due to lack of IV access, awaiting PICC placement prior to administration.
--- NOTE | 2020-07-19 11:26 | Surgery Progress Note ---
Surgery Progress Note Subjective Symptoms: improved Additional Comments on anticoag states mild vaginal spotting this morning but no bleeding Objective Last 24 Hour Vital Signs Date Time Temp Pulse Resp B/P (MAP) Pulse Ox O2 Delivery O2 Flow Rate FiO2 07/19/20 09:59 97.9 07/19/20 09:23 87 126/88 07/19/20 08:00 97.9 87 20 126/88 (101) 94 07/19/20 04:00 97.9 84 20 133/80 (97) 94 07/19/20 00:00 98.2 87 18 115/73 (87) 94 07/18/20 20:00 97.9 88 18 121/68 (85) 94 07/18/20 18:30 Room Air 07/18/20 18:26 97.1 07/18/20 16:00 97.1 93 19 138/98 (111) 98 07/18/20 12:57 97.3 07/18/20 12:00 97.3 85 16 132/81 (98) 96 I&O Intake and Output 07/18/20 07/19/20 19:00 07:00 Intake Total 1390.000 ml 450 ml Balance 1390.000 ml 450 ml Intake Oral 840 ml 450 ml IV Total 550.000 ml # Voids 4 3 # Bowel Movements 1 Dressing: saturated Cardiovascular: RSR Respiratory: clear Abdomen: soft, non-tender, present bowel sounds, non-distended Extremities: edema, no tenderness, no cyanosis, other Laboratory Tests Test 07/18/20 11:46 07/18/20 17:28 07/19/20 05:20 07/19/20 06:12 POC Whole Blood Glucose Pending 143 MG/DL (74-106) H 160 MG/DL (74-106) H White Blood Count 11.5 K/UL (4.8-10.8) H Red Blood Count 4.30 M/UL (4.20-5.40) Hemoglobin 10.7 G/DL (12.0-16.0) L Hematocrit 37.1 % (37.0-47.0) Mean Corpuscular Volume 86 FL (80-99) Mean Corpuscular Hemoglobin 24.8 PG (27.0-31.0) L Mean Corpuscular Hemoglobin Concent 28.7 G/DL (32.0-36.0) L Red Cell Distribution Width 18.1 % (11.6-14.8) H Platelet Count 223 K/UL (150-450) Mean Platelet Volume 7.1 FL (6.5-10.1) Neutrophils (%) (Auto) 79.1 % (45.0-75.0) H Lymphocytes (%) (Auto) 11.0 % (20.0-45.0) L Monocytes (%) (Auto) 6.5 % (1.0-10.0) Eosinophils (%) (Auto) 2.6 % (0.0-3.0) Basophils (%) (Auto) 0.8 % (0.0-2.0) Sodium Level 141 MMOL/L (136-145) Potassium Level 3.5 MMOL/L (3.5-5.1) Chloride Level 102 MMOL/L (98-107) Carbon Dioxide Level 32 MMOL/L (21-32) Anion Gap 7 mmol/L (5-15) Blood Urea Nitrogen 16 mg/dL (7-18) Creatinine 0.9 MG/DL (0.55-1.30) Estimat Glomerular Filtration Rate > 60 mL/min (>60) Glucose Level 157 MG/DL (74-106) H Calcium Level 8.9 MG/DL (8.5-10.1) Phosphorus Level 3.4 MG/DL (2.5-4.9) Magnesium Level 2.0 MG/DL (1.8-2.4) Ferritin 26 NG/ML (8-388) Plan Problems: (1) Morbid obesity (2) Acute cholecystitis (3) Acute cholecystitis (4) Hypokalemia (5) Hypokalemia (6) Atypical psychosis (7) Acute blood loss anemia (8) Thrush (9) Gout (10) Morbid obesity (11) Anemia (12) Back pain (13) Cellulitis Assessment & Plan: 59-year-old female chronic lower extremity edema cellulitis bilateral prior currently bilateral edema but cellulitis on the left side. Lateral aspect distal small skin partial-thickness abrasion 1 cm x 1 cm identified. Warm difficult to check pulses given size of the extremity overall morbidly obese BMI 55. No abscess identified no fluid collections identified generalized edema and cellulitis noted. No acute surgical intervention planned at this time. Arterial and venous duplexes will be ordered. Okay for diet. Keep bilateral lower extremities elevated while in bed. Activity as tolerated. Wash left lower extremity foot and ankle with normal saline. Apply Thera honey cover with Xeroform ABD and wrap with gauze. Daily and as needed. Antibiotics per infectious disease. Will follow with recommendations. Thank you for letting participate patient's care (14) Cough (15) Diarrhea (16) SOB (shortness of breath) (17) Flank pain (18) Leukocytosis (19) Leukocytosis (20) Post-menopausal bleeding (21) Vaginal bleeding (22) Hypoalbuminemia (23) Sepsis (24) Rectal bleeding (25) Venous stasis (26) Hypertension (27) Pneumonitis (28) Obesity (29) HTN (hypertension) (30) Chronic pain (31) Muscle ache (32) Cellulitis, leg (33) Cellulitis, leg (34) Clostridium difficile colitis (35) ACS (acute coronary syndrome) (36) Abnormal laboratory test result (37) Diabetes type 2, controlled (38) Factor V Leiden (39) Shoulder pain, right (40) Cellulitis of right leg (41) Cellulitis of right leg (42) BMI 60.0-69.9, adult (43) Chronic wound of extremity (44) Flank pain, acute (45) Injury of lower extremity (46) Left leg cellulitis (47) Left leg cellulitis (48) Factor 5 Leiden mutation, heterozygous (49) DVT, bilateral lower limbs (50) Elevated lactic acid level (51) Bilateral cellulitis of lower leg (52) Bilateral lower leg cellulitis (53) Poor intravenous access (54) DVT, recurrent, lower extremity, acute and chronic (55) Deep vein thrombosis (DVT) of left lower extremity (56) COVID-19 ruled out by laboratory testing (57) Acute DVT of LLE (58) lives on own at home (59) lateral posterior left leg superficial skin breakdown ulcer (60) abdominal wall swelling (61) leg pain (62) probable abscess Chuy Damian Jul 19, 2020 11:26
[2020-07-19 12:00] VITALS: BP 131/82
--- NOTE | 2020-07-19 12:03 | Infectious Diseases Prog Note ---
Assessment/Plan Assessment/Plan IMPRESSION: Left leg cellulitis. gram negative in culture Morbid obesity, Hypertension, Diabetes mellitus, Stasis dermatitis, Anemia, Gout. RECOMMENDATION: Discontinue vancomycin. Start on Cefepime We will follow up the cultures. Subjective ROS Limited/Unobtainable: No Respiratory: Reports: no symptoms Cardiovascular: Reports: no symptoms Musculoskeletal: Reports: pain, other - in left leg Allergies: Coded Allergies: SULFA (SULFONAMIDE ANTIBIOTICS) (Unverified Allergy, Unknown, 05/02/15) allergy history per Dr. Jones Objective Last 24 Hour Vital Signs Date Time Temp Pulse Resp B/P (MAP) Pulse Ox O2 Delivery O2 Flow Rate FiO2 07/19/20 09:59 97.9 07/19/20 09:23 87 126/88 07/19/20 08:00 97.9 87 20 126/88 (101) 94 07/19/20 04:00 97.9 84 20 133/80 (97) 94 07/19/20 00:00 98.2 87 18 115/73 (87) 94 07/18/20 20:00 97.9 88 18 121/68 (85) 94 07/18/20 18:30 Room Air 07/18/20 18:26 97.1 07/18/20 16:00 97.1 93 19 138/98 (111) 98 07/18/20 12:57 97.3 07/18/20 12:00 97.3 85 16 132/81 (98) 96 Height (Feet): 6 Height (Inches): 1.00 Weight (Pounds): 420 HEENT: mucous membranes moist Respiratory/Chest: lungs clear Cardiovascular: normal rate, other - R arm midline, nonfuntional Abdomen: soft, non tender Extremities: other - edema of legs Skin: ulcers, other - stasis dermatitis of legs Neurologic/Psychiatric: alert, 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, responsive Microbiology Date/Time Source Procedure Growth Status 07/16/20 23:49 Other Gram Stain - Final Resulted 07/16/20 23:49 Wound Culture - Preliminary Gram Negative Bacillus 1 Resulted Laboratory Tests Test 07/18/20 17:28 07/19/20 05:20 07/19/20 06:12 POC Whole Blood Glucose 143 MG/DL (74-106) H 160 MG/DL (74-106) H White Blood Count 11.5 K/UL (4.8-10.8) H Red Blood Count 4.30 M/UL (4.20-5.40) Hemoglobin 10.7 G/DL (12.0-16.0) L Hematocrit 37.1 % (37.0-47.0) Mean Corpuscular Volume 86 FL (80-99) Mean Corpuscular Hemoglobin 24.8 PG (27.0-31.0) L Mean Corpuscular Hemoglobin Concent 28.7 G/DL (32.0-36.0) L Red Cell Distribution Width 18.1 % (11.6-14.8) H Platelet Count 223 K/UL (150-450) Mean Platelet Volume 7.1 FL (6.5-10.1) Neutrophils (%) (Auto) 79.1 % (45.0-75.0) H Lymphocytes (%) (Auto) 11.0 % (20.0-45.0) L Monocytes (%) (Auto) 6.5 % (1.0-10.0) Eosinophils (%) (Auto) 2.6 % (0.0-3.0) Basophils (%) (Auto) 0.8 % (0.0-2.0) Sodium Level 141 MMOL/L (136-145) Potassium Level 3.5 MMOL/L (3.5-5.1) Chloride Level 102 MMOL/L (98-107) Carbon Dioxide Level 32 MMOL/L (21-32) Anion Gap 7 mmol/L (5-15) Blood Urea Nitrogen 16 mg/dL (7-18) Creatinine 0.9 MG/DL (0.55-1.30) Estimat Glomerular Filtration Rate > 60 mL/min (>60) Glucose Level 157 MG/DL (74-106) H Calcium Level 8.9 MG/DL (8.5-10.1) Phosphorus Level 3.4 MG/DL (2.5-4.9) Magnesium Level 2.0 MG/DL (1.8-2.4) Ferritin 26 NG/ML (8-388) Current Medications Medications (Trade) Dose Ordered Sig/Key Route PRN Reason Start Time Stop Time Status Last Admin Dose Admin Acetaminophen (Tylenol) 650 mg Q6H PRN ORAL Mild Pain (Pain Scale 1-3) 07/17/20 02:15 08/16/20 02:14 07/17/20 11:50 Acetaminophen/ Hydrocodone Bitart ([place] 7.5/325) 1 tab Q4H PRN ORAL pain 4-10 07/17/20 02:15 07/24/20 02:14 Albuterol/ Ipratropium (Albuterol/ Ipratropium) 3 ml Q6HRT PRN HHN Shortness of Breath 07/17/20 02:15 07/22/20 02:14 Allopurinol (Zyloprim) 100 mg DAILY ORAL 07/17/20 09:00 08/16/20 08:59 07/19/20 09:23 Amlodipine Besylate (Norvasc) 5 mg DAILY ORAL 07/17/20 09:00 08/16/20 08:59 07/19/20 09:23 Apixaban (Eliquis) 2.5 mg BID ORAL 07/18/20 18:00 10/16/20 17:59 07/19/20 09:24 Chlorhexidine Gluconate (Priti-Hex 2%) 1 applic DAILY@2000 TOPIC 07/19/20 20:00 10/17/20 19:59 Dextrose (Dextrose 50%) 25 ml Q30M PRN IV Hypoglycemia 07/17/20 01:30 10/15/20 01:29 Dextrose (Dextrose 50%) 50 ml Q30M PRN IV Hypoglycemia 07/17/20 01:30 10/15/20 01:29 Docusate Sodium (Colace) 100 mg DAILY ORAL 07/17/20 09:00 08/16/20 08:59 07/19/20 09:22 Famotidine (Pepcid) 40 mg DAILY ORAL 07/17/20 09:00 10/15/20 08:59 07/19/20 09:23 Ferrous Gluconate (Fergon) 324 mg BID ORAL 07/17/20 18:00 10/15/20 17:59 07/19/20 09:24 Furosemide (Lasix) 40 mg DAILY ORAL 07/17/20 09:00 08/16/20 08:59 07/19/20 09:23 Gabapentin (Neurontin) 100 mg Q12H PRN ORAL NEUROPATHIC PAIN 07/17/20 02:15 08/16/20 02:14 Heparin Sodium/ Sodium Chloride (Heparin 1000 units/500ml Premix) 1,000 unit ONCE PRN IV PICC LINE PLACEMENT 07/19/20 10:45 07/21/20 10:44 Hydromorphone HCl (Dilaudid) 0.5 mg Q4H PRN IVP For Pain 07/17/20 13:30 07/24/20 13:29 07/19/20 09:29 Lidocaine HCl (Xylocaine 1% 30ml) 30 ml ONCE PRN INJ PICC LINE PLACEMENT 07/19/20 10:45 07/21/20 10:44 Magnesium Hydroxide (Mom) 10 ml Q6H PRN ORAL HEARTBURN 07/17/20 07:30 08/16/20 07:29 07/17/20 07:35 Magnesium Oxide (Mag-Ox 400mg) 400 mg BID ORAL 07/17/20 09:00 08/16/20 08:59 07/19/20 09:22 Metformin HCl (Glucophage) 500 mg BIAC ORAL 07/17/20 06:30 08/16/20 06:29 07/19/20 06:12 Multivitamins (Multivitamins) 1 tab DAILY ORAL 07/17/20 09:00 08/16/20 08:59 07/19/20 09:24 Sennosides (Senokot) 8.6 mg DAILYPRN PRN ORAL Constipation 07/17/20 02:15 08/16/20 02:14 Vancomycin HCl (Vanco pharmacy to dose) 1 ea DAILY PRN MISC Per rx protocol 07/17/20 02:00 08/16/20 01:59 Vancomycin HCl 1 gm/Dextrose 275 ml @ 183.708 mls/hr Q8H IVPB 07/17/20 18:00 07/22/20 17:59 07/19/20 02:20 Harrison Velasco MD Jul 19, 2020 12:03
[2020-07-19] MEDS ORDERED: Cefepime HCl 1 GM in D5W 55 ML IVPB SCH (12:30)
--- NOTE | 2020-07-19 15:39 | Pre-Procedure Note/Attestation ---
Pre-Procedure Note/Attestation Complete Prior to Procedure Planned Procedure: not applicable Procedure Narrative: picc insertion Indications for Procedure Pre-Operative Diagnosis: need iv access Attestation informed consent obtained prior to procedure Juan Blake M.D. Jul 19, 2020 15:39
--- NOTE | 2020-07-19 15:49 | NUR ---
NURSE NOTES: Patient back from PICC line placement, received order fromshelbie Burgos to use PICC line.
--- NOTE | 2020-07-19 15:51 | NUR ---
NURSE NOTES: Called pharmacy and María told me that cefipime would be re-timed because I informed her that PICC line is in place now.
[2020-07-19 16:00] VITALS: BP 154/69
--- NOTE | 2020-07-19 16:00 | NUR ---
RADIOLOGY NOTE: RIGHT UPPER EXTREMITY PICC LINE PLACEMENT BY DR. PENN AT 1510 HRS. FA
--- NOTE | 2020-07-19 16:01 | Diagnostic Imaging Report ---
Indications: Cellulitis. Needs IV access Technique: Procedural timeout performed. Ultrasound reveals no appropriate target vessel on the left upper extremity for PICC line placement. Decision made to attempt to convert midline to PICC line. Total sterile technique, including sterile probe cover and sterile gel (if applicable), sterile gloves, hand hygiene, hat, mask,, sterile gown, large sterile drape, and preparation with 2% chlorhexidine utilized. Local anesthesia with 1% lidocaine. Wire was advanced via the indwelling midline catheter and easily advanced centrally common across the cavoatrial junction and into the IVC. An appropriate length was measured. Midline catheter was removed and peel-away sheath was placed over the midline catheter. 4 [place] double-lumen PICC was placed over the wire. Catheter length 55 cm. Peel-away sheath and guidewire removed. Catheter fixed to the skin. Both catheter ports aspirated and flushed. Patient tolerated procedure well, without immediate complication. Fluoroscopy demonstrate catheter at the level of the cavoatrial junction. Total fluoroscopy time 59.8 seconds. Total fluoroscopy dose 28.92mGy. Total number fluoroscopy images obtained: 2 IMPRESSION: No suitable veins on left upper extremity for PICC line placement. Successful conversion of existing right arm midline to PICC line. Catheter cleared for use.
[2020-07-19] MEDS: Cefepime HCl 1 GM in D5W 55 ML IVPB SCH (16:04)
--- NOTE | 2020-07-19 18:20 | NUR ---
NURSE NOTES: NO S/S bleeding, patient denies any bleeding, v/s within normal limits.
--- NOTE | 2020-07-19 19:05 | NUR ---
NURSE HAND-OFF: Important Events on Shift: PICC line cleared today on right upper arm, PICC patent and asymptomatic Patient Status: full code, stable condition Diet: no added salt Pending Orders: [] Pending Results/Labs:[] Pending MD notification:[] Latest Vital Signs: Temperature 97.7 , Pulse 89 , B/P 154 /69 , Respiratory Rate 20 , O2 SAT 99 , Room Air, O2 Flow Rate . Vital Sign Comment: [] Latest [place] Fall Score: 45 Fall Risk: High Risk Safety Measures: Call light Within Reach, Bed Alarm Zone 2, Side Rails Side Rails x2, Bed position Low and Locked. Fall Precautions: Yellow Socks Yellow Gown Door Sign Patient Fall Education Report given to MARY Carbone. Addendum: 07/19/20 at 1948 by Luis Marmolejo RN Patient report was given to MARY King.
[2020-07-19 20:00] VITALS: BP 148/87
[2020-07-19] MEDS: Dyna-Hex 2% Top Sol 2oz TOPIC SCH (20:14)
[2020-07-20] VITALS: BP 109/75
[2020-07-20] MEDS: Albuterol/Ipratropium 3ml neb HHN PRN (00:20)
--- NOTE | 2020-07-20 00:48 | NUR ---
NURSE NOTES: PICC patent, running TKO. No s/s of acute distress. Patient resting comfortably in bed, bed linen partially changed per patient request.
[2020-07-20 04:00] VITALS: BP 128/75
[2020-07-20] MEDS: Cefepime HCl 1 GM in D5W 55 ML IVPB SCH ×2 (04:17→17:35)
[2020-07-20 05:22] LABS: BASOPHILS % (AUTO) 0.5 % (0.0-2.0); EOSINOPHILS % (AUTO) 2.1 % (0.0-3.0); HEMOGLOBIN 10.5 G/DL (12.0-16.0); LYMPHOCYTES % (AUTO) 10.2 % (20.0-45.0); MEAN CORPUSCULAR VOLUME 84 FL (80-99); MONOCYTES % (AUTO) 6.5 % (1.0-10.0); NEUTROPHILS % (AUTO) 80.7 % (45.0-75.0); PLATELET COUNT 239 K/UL (150-450); RED BLOOD COUNT 4.27 M/UL (4.20-5.40); RED CELL DISTRIBUTION WIDTH 17.6 % (11.6-14.8); WHITE BLOOD COUNT 12.3 K/UL (4.8-10.8)
[2020-07-20 05:37] LABS: ANION GAP 5 mmol/L (5-15); BLOOD UREA NITROGEN 17 mg/dL (7-18); CALCIUM 8.8 MG/DL (8.5-10.1); CARBON DIOXIDE 34 MMOL/L (21-32); CHLORIDE 101 MMOL/L (98-107); CREATININE 0.9 MG/DL (0.55-1.30); PHOSPHORUS 3.2 MG/DL (2.5-4.9); POTASSIUM 3.4 MMOL/L (3.5-5.1); SODIUM 140 MMOL/L (136-145)
[2020-07-20] MEDS: metFORMIN 500mg tab ORAL SCH ×2 (06:03→17:39)
--- NOTE | 2020-07-20 06:18 | Hematology/Onc Progress Note ---
Assessment/Plan Assessment/Plan Assessment/Plan # DVT (on AC) of the left lower extremity popliteal vein -- likely related 2/2 inflammatory process and stasis, cellulitis making clot return, has been dealing with recurrent clots since 2011. Have discussed extensively with her the prior treatments she has received, which have included coumadin, eliquis, xarelto, lovenox --> given h/h stable, okay to proceed with anticoag, in the past did well on xarelto and only reason it was changed was because of drug interaction --> at this time was on apixaban as outpatient --> given holding off on surg intervention, apixaban resumed # Anemia of iron deficiency, ferritin is very low --> continue on po ferrous gluconate --> Monitor closely --> repeat ferritin, r/o gi bleed --> consider iv iron if worsens --> hgb 10.5 # Leukocytosis with B/l leg swelling/pain/redness. Pt notes symptoms for the past few days. She has a history of cellulitis of leg previously treated with antibiotics. --> per ID vanc --> wbc 12 # Vaginal bleed # Hypokalemia # Dvt ppx apixaban Appreciate consultation and herbert Rn Subjective HEENT: Denies: no symptoms, eye pain, blurred vision, tearing, double vision, ear pain, ear discharge, nose pain, nose congestion, throat pain, throat swelling, mouth pain, mouth swelling, other Cardiovascular: Denies: no symptoms, chest pain, edema, irregular heart rate, lightheadedness, palpitations, syncope, other Respiratory: Denies: no symptoms, cough, shortness of breath, SOB with excertion, SOB at rest, sputum, wheezing, other Gastrointestinal/Abdominal: Denies: no symptoms, abdomen distended, abdominal pain, black stools, tarry stools, blood in stool, constipated, diarrhea, difficulty swallowing, nausea, poor appetite, poor fluid intake, rectal bleeding, vomiting, other Genitourinary: Denies: no symptoms, burning, discharge, frequency, flank pain, hematuria, incontinence, pain, urgency, other Endocrine: Denies: no symptoms, excessive sweating, flushing, intolerance to cold, intolerance to heat, increased hunger, increased thirst, increased urine, unexplained weight gain, unexplained weight loss, other Hematologic/Lymphatic: Denies: no symptoms, anemia, easy bleeding, easy bruising, adenopathy, other Allergies: Coded Allergies: SULFA (SULFONAMIDE ANTIBIOTICS) (Unverified Allergy, Unknown, 05/02/15) allergy history per Dr. Jones Subjective 07/19 remains on vanc for lower ext cellulitis, has been restarted on apixaban po 07/20 picc line right arm in place, is on apixaban as well Objective Objective Current Medications Medications (Trade) Dose Ordered Sig/Key Route PRN Reason Start Time Stop Time Status Last Admin Dose Admin Acetaminophen (Tylenol) 650 mg Q6H PRN ORAL Mild Pain (Pain Scale 1-3) 07/17/20 02:15 08/16/20 02:14 07/17/20 11:50 Acetaminophen/ Hydrocodone Bitart ([place] 7.5/325) 1 tab Q4H PRN ORAL pain 4-10 07/17/20 02:15 07/24/20 02:14 Albuterol/ Ipratropium (Albuterol/ Ipratropium) 3 ml Q6HRT PRN HHN Shortness of Breath 07/17/20 02:15 07/22/20 02:14 07/20/20 00:20 Allopurinol (Zyloprim) 100 mg DAILY ORAL 07/17/20 09:00 08/16/20 08:59 07/19/20 09:23 Amlodipine Besylate (Norvasc) 5 mg DAILY ORAL 07/17/20 09:00 08/16/20 08:59 07/19/20 09:23 Apixaban (Eliquis) 2.5 mg BID ORAL 07/18/20 18:00 10/16/20 17:59 07/19/20 18:22 Cefepime HCl 1 gm/ Dextrose 55 ml @ 110 mls/hr Q12H IVPB 07/19/20 16:00 07/26/20 15:59 07/20/20 04:17 Chlorhexidine Gluconate (Priti-Hex 2%) 1 applic DAILY@2000 TOPIC 07/19/20 20:00 10/17/20 19:59 07/19/20 20:14 Dextrose (Dextrose 50%) 25 ml Q30M PRN IV Hypoglycemia 07/17/20 01:30 10/15/20 01:29 Dextrose (Dextrose 50%) 50 ml Q30M PRN IV Hypoglycemia 07/17/20 01:30 10/15/20 01:29 Docusate Sodium (Colace) 100 mg DAILY ORAL 07/17/20 09:00 08/16/20 08:59 07/19/20 09:22 Famotidine (Pepcid) 40 mg DAILY ORAL 07/17/20 09:00 10/15/20 08:59 07/19/20 09:23 Ferrous Gluconate (Fergon) 324 mg BID ORAL 07/17/20 18:00 10/15/20 17:59 07/19/20 18:23 Furosemide (Lasix) 40 mg DAILY ORAL 07/17/20 09:00 08/16/20 08:59 07/19/20 09:23 Gabapentin (Neurontin) 100 mg Q12H PRN ORAL NEUROPATHIC PAIN 07/17/20 02:15 08/16/20 02:14 Heparin Sodium/ Sodium Chloride (Heparin 1000 units/500ml Premix) 1,000 unit ONCE PRN IV PICC LINE PLACEMENT 07/19/20 10:45 07/21/20 10:44 Hydromorphone HCl (Dilaudid) 0.5 mg Q4H PRN IVP For Pain 07/17/20 13:30 07/24/20 13:29 07/19/20 21:50 Lidocaine HCl (Xylocaine 1% 30ml) 30 ml ONCE PRN INJ PICC LINE PLACEMENT 07/19/20 10:45 07/21/20 10:44 Magnesium Hydroxide (Mom) 10 ml Q6H PRN ORAL HEARTBURN 07/17/20 07:30 08/16/20 07:29 07/17/20 07:35 Magnesium Oxide (Mag-Ox 400mg) 400 mg BID ORAL 07/17/20 09:00 08/16/20 08:59 07/19/20 18:23 Metformin HCl (Glucophage) 500 mg BIAC ORAL 07/17/20 06:30 08/16/20 06:29 07/20/20 06:03 Multivitamins (Multivitamins) 1 tab DAILY ORAL 07/17/20 09:00 08/16/20 08:59 07/19/20 09:24 Sennosides (Senokot) 8.6 mg DAILYPRN PRN ORAL Constipation 07/17/20 02:15 08/16/20 02:14 Last 24 Hour Vital Signs Date Time Temp Pulse Resp B/P (MAP) Pulse Ox O2 Delivery O2 Flow Rate FiO2 07/20/20 04:00 97.6 85 20 128/75 (92) 99 07/20/20 00:28 89 18 100 Simple Mask 88 18 100 07/20/20 00:00 97.9 93 20 109/75 (86) 99 07/19/20 22:20 98.3 07/19/20 20:47 Room Air 07/19/20 20:00 98.3 87 20 148/87 (107) 99 07/19/20 16:51 97.7 07/19/20 16:00 98.1 89 20 154/69 (97) 99 07/19/20 12:00 97.7 83 20 131/82 (98) 98 07/19/20 09:59 97.9 07/19/20 09:23 87 126/88 07/19/20 09:00 Room Air 07/19/20 08:00 97.9 87 20 126/88 (101) 94 07/19/20 04:00 97.9 84 20 133/80 (97) 94 07/19/20 00:00 98.2 87 18 115/73 (87) 94 07/18/20 20:00 97.9 88 18 121/68 (85) 94 07/18/20 18:30 Room Air 07/18/20 18:26 97.1 07/18/20 16:00 97.1 93 19 138/98 (111) 98 07/18/20 12:57 97.3 07/18/20 12:00 97.3 85 16 132/81 (98) 96 07/18/20 09:33 86 126/72 07/18/20 09:00 Room Air 07/18/20 08:00 97.2 86 20 126/72 (90) 96 Intake and Output 07/19/20 07/20/20 19:00 07:00 Intake Total 1080 ml Balance 1080 ml Intake Oral 1080 ml # Voids 3 # Bowel Movements 2 Labs Test 07/17/20 07:00 07/17/20 11:29 07/17/20 16:39 07/17/20 19:58 Vancomycin Level Trough 2.7 ug/mL (5.0-12.0) POC Whole Blood Glucose 114 MG/DL (74-106) 117 MG/DL (74-106) Test 07/18/20 06:26 07/18/20 09:30 07/18/20 11:46 07/18/20 17:28 White Blood Count 11.7 K/UL (4.8-10.8) Red Blood Count 4.23 M/UL (4.20-5.40) Hemoglobin 10.5 G/DL (12.0-16.0) Hematocrit 36.0 % (37.0-47.0) Mean Corpuscular Volume 85 FL (80-99) Mean Corpuscular Hemoglobin 24.9 PG (27.0-31.0) Mean Corpuscular Hemoglobin Concent 29.2 G/DL (32.0-36.0) Red Cell Distribution Width 18.3 % (11.6-14.8) Platelet Count 241 K/UL (150-450) Mean Platelet Volume 6.9 FL (6.5-10.1) Neutrophils (%) (Auto) 79.7 % (45.0-75.0) Lymphocytes (%) (Auto) 11.0 % (20.0-45.0) Monocytes (%) (Auto) 6.3 % (1.0-10.0) Eosinophils (%) (Auto) 2.4 % (0.0-3.0) Basophils (%) (Auto) 0.6 % (0.0-2.0) Sodium Level 141 MMOL/L (136-145) Potassium Level 3.4 MMOL/L (3.5-5.1) Chloride Level 101 MMOL/L (98-107) Carbon Dioxide Level 34 MMOL/L (21-32) Anion Gap 6 mmol/L (5-15) Blood Urea Nitrogen 16 mg/dL (7-18) Creatinine 0.8 MG/DL (0.55-1.30) Estimat Glomerular Filtration Rate > 60 mL/min (>60) Glucose Level 128 MG/DL (74-106) Calcium Level 9.0 MG/DL (8.5-10.1) Phosphorus Level 3.9 MG/DL (2.5-4.9) Magnesium Level 2.1 MG/DL (1.8-2.4) Vancomycin Level Trough 14.0 ug/mL (5.0-12.0) POC Whole Blood Glucose 143 MG/DL (74-106) Test 07/19/20 05:20 07/19/20 06:12 07/19/20 16:18 07/20/20 04:00 White Blood Count 11.5 K/UL (4.8-10.8) 12.3 K/UL (4.8-10.8) Red Blood Count 4.30 M/UL (4.20-5.40) 4.27 M/UL (4.20-5.40) Hemoglobin 10.7 G/DL (12.0-16.0) 10.5 G/DL (12.0-16.0) Hematocrit 37.1 % (37.0-47.0) 36.0 % (37.0-47.0) Mean Corpuscular Volume 86 FL (80-99) 84 FL (80-99) Mean Corpuscular Hemoglobin 24.8 PG (27.0-31.0) 24.5 PG (27.0-31.0) Mean Corpuscular Hemoglobin Concent 28.7 G/DL (32.0-36.0) 29.0 G/DL (32.0-36.0) Red Cell Distribution Width 18.1 % (11.6-14.8) 17.6 % (11.6-14.8) Platelet Count 223 K/UL (150-450) 239 K/UL (150-450) Mean Platelet Volume 7.1 FL (6.5-10.1) 7.0 FL (6.5-10.1) Neutrophils (%) (Auto) 79.1 % (45.0-75.0) 80.7 % (45.0-75.0) Lymphocytes (%) (Auto) 11.0 % (20.0-45.0) 10.2 % (20.0-45.0) Monocytes (%) (Auto) 6.5 % (1.0-10.0) 6.5 % (1.0-10.0) Eosinophils (%) (Auto) 2.6 % (0.0-3.0) 2.1 % (0.0-3.0) Basophils (%) (Auto) 0.8 % (0.0-2.0) 0.5 % (0.0-2.0) Sodium Level 141 MMOL/L (136-145) 140 MMOL/L (136-145) Potassium Level 3.5 MMOL/L (3.5-5.1) 3.4 MMOL/L (3.5-5.1) Chloride Level 102 MMOL/L (98-107) 101 MMOL/L (98-107) Carbon Dioxide Level 32 MMOL/L (21-32) 34 MMOL/L (21-32) Anion Gap 7 mmol/L (5-15) 5 mmol/L (5-15) Blood Urea Nitrogen 16 mg/dL (7-18) 17 mg/dL (7-18) Creatinine 0.9 MG/DL (0.55-1.30) 0.9 MG/DL (0.55-1.30) Estimat Glomerular Filtration Rate > 60 mL/min (>60) > 60 mL/min (>60) Glucose Level 157 MG/DL (74-106) 119 MG/DL (74-106) Calcium Level 8.9 MG/DL (8.5-10.1) 8.8 MG/DL (8.5-10.1) Phosphorus Level 3.4 MG/DL (2.5-4.9) 3.2 MG/DL (2.5-4.9) Magnesium Level 2.0 MG/DL (1.8-2.4) 1.9 MG/DL (1.8-2.4) Ferritin 26 NG/ML (8-388) POC Whole Blood Glucose 160 MG/DL (74-106) 126 MG/DL (74-106) Height (Feet): 6 Height (Inches): 1.00 Weight (Pounds): 420 Objective Gen: nad Pulm: ctab, no cwr CV: rrr, no mgr Abd: soft, nt, nd Ext: left lower ext cellulitis+ Dinesh Rodríguez MD Jul 20, 2020 06:18
--- NOTE | 2020-07-20 07:23 | NUR ---
RD ASSESSMENT & RECOMMENDATIONS SEE CARE ACTIVITY FOR COMPLETE ASSESSMENT DAILY ESTIMATED NEEDS: Needs based on Obesity, ulcer (107 kg abw) 15-20 kcals/kg [id number] total kcals 1.25-1.5 g protein/kg 134-161 g total protein Fluid per MD, on lasix NUTRITION DIAGNOSIS: * Decreased fat and sodium needs r/t morbid obesity as evidenced by BMI 59, 272% IBW, on diuretics w/ BL LE edema. CURRENT DIET: SUPA PO DIET RECOMMENDATIONS--->>> CARDIAC / CCHO LOW DIET + DOUBLE PROTEIN PORTIONS ADDITIONAL RECOMMENDATIONS: 1) Calibrate bed scale for accurate daily weights on diuretics 2) Monitor lytes daily on lasix, replete as needed (K low 3.4) 3) recalibrate bed scale should pt transfer to [facility] bed 4) GABBY BID for skin integrity .
[2020-07-20 08:00] VITALS: BP 131/91
--- NOTE | 2020-07-20 08:15 | NUR ---
NURSE NOTES: Received report. Pt is awake, alert and oriented x4, sitting on the edge of bed, Pt is on room air with no sign of sob or resp distress. Pt has Right upper picc line that is locked and intact. Breathing even and unlabored. Pt ambulates with cane to bedside commode. Pt is continent of bowel and bladder. Contact precautions maintained, Fall precautions maintained. Bed in lowest and locked position, bed alarm on, call light within reach, side rails upx2.
--- NOTE | 2020-07-20 08:23 | Pulmonology Progress Note ---
Subjective ROS Limited/Unobtainable: No Interval Events: None new Constitutional: Reports: no symptoms HEENT: Repors: no symptoms Respiratory: Reports: no symptoms Cardiovascular: Reports: no symptoms Gastrointestinal/Abdominal: Reports: no symptoms Genitourinary: Reports: no symptoms Musculoskeletal: Reports: pain, other - in left leg Allergies: Coded Allergies: SULFA (SULFONAMIDE ANTIBIOTICS) (Unverified Allergy, Unknown, 05/02/15) allergy history per Dr. Jones Objective Last 24 Hour Vital Signs Date Time Temp Pulse Resp B/P (MAP) Pulse Ox O2 Delivery O2 Flow Rate FiO2 07/20/20 04:00 97.6 85 20 128/75 (92) 99 07/20/20 00:28 89 18 100 Simple Mask 88 18 100 07/20/20 00:00 97.9 93 20 109/75 (86) 99 07/19/20 22:20 98.3 07/19/20 20:47 Room Air 07/19/20 20:00 98.3 87 20 148/87 (107) 99 07/19/20 16:51 97.7 07/19/20 16:00 98.1 89 20 154/69 (97) 99 07/19/20 12:00 97.7 83 20 131/82 (98) 98 07/19/20 09:59 97.9 07/19/20 09:23 87 126/88 07/19/20 09:00 Room Air Intake and Output 07/19/20 07/20/20 19:00 07:00 Intake Total 1080 ml 200 ml Balance 1080 ml 200 ml Intake Oral 1080 ml 200 ml # Voids 3 2 # Bowel Movements 2 General Appearance: no acute distress Respiratory: chest wall non-tender Cardiovascular: normal peripheral pulses Abdomen: normal bowel sounds Extremities: other - LE cellulitis Laboratory Tests 07/19/20 16:18: POC Whole Blood Glucose 126H 07/20/20 04:00: White Blood Count 12.3H, Red Blood Count 4.27, Hemoglobin 10.5L, Hematocrit 36.0L, Mean Corpuscular Volume 84, Mean Corpuscular Hemoglobin 24.5L, Mean Corpuscular Hemoglobin Concent 29.0L, Red Cell Distribution Width 17.6H, Platelet Count 239, Mean Platelet Volume 7.0, Neutrophils (%) (Auto) 80.7H, Lymphocytes (%) (Auto) 10.2L, Monocytes (%) (Auto) 6.5, Eosinophils (%) (Auto) 2.1, Basophils (%) (Auto) 0.5, Sodium Level 140, Potassium Level 3.4L, Chloride Level 101, Carbon Dioxide Level 34H, Anion Gap 5, Blood Urea Nitrogen 17, Creatinine 0.9, Estimat Glomerular Filtration Rate > 60, Glucose Level 119H, Calcium Level 8.8, Phosphorus Level 3.2, Magnesium Level 1.9 Current Medications Medications (Trade) Dose Ordered Sig/Key Route PRN Reason Start Time Stop Time Status Last Admin Dose Admin Acetaminophen (Tylenol) 650 mg Q6H PRN ORAL Mild Pain (Pain Scale 1-3) 07/17/20 02:15 08/16/20 02:14 07/17/20 11:50 Acetaminophen/ Hydrocodone Bitart ([place] 7.5/325) 1 tab Q4H PRN ORAL pain 4-10 07/17/20 02:15 07/24/20 02:14 Albuterol/ Ipratropium (Albuterol/ Ipratropium) 3 ml Q6HRT PRN HHN Shortness of Breath 07/17/20 02:15 07/22/20 02:14 07/20/20 00:20 Allopurinol (Zyloprim) 100 mg DAILY ORAL 07/17/20 09:00 08/16/20 08:59 07/19/20 09:23 Amlodipine Besylate (Norvasc) 5 mg DAILY ORAL 07/17/20 09:00 08/16/20 08:59 07/19/20 09:23 Apixaban (Eliquis) 2.5 mg BID ORAL 07/18/20 18:00 10/16/20 17:59 07/19/20 18:22 Cefepime HCl 1 gm/ Dextrose 55 ml @ 110 mls/hr Q12H IVPB 07/19/20 16:00 07/26/20 15:59 07/20/20 04:17 Chlorhexidine Gluconate (Priti-Hex 2%) 1 applic DAILY@2000 TOPIC 07/19/20 20:00 10/17/20 19:59 07/19/20 20:14 Dextrose (Dextrose 50%) 25 ml Q30M PRN IV Hypoglycemia 07/17/20 01:30 10/15/20 01:29 Dextrose (Dextrose 50%) 50 ml Q30M PRN IV Hypoglycemia 07/17/20 01:30 10/15/20 01:29 Docusate Sodium (Colace) 100 mg DAILY ORAL 07/17/20 09:00 08/16/20 08:59 07/19/20 09:22 Famotidine (Pepcid) 40 mg DAILY ORAL 07/17/20 09:00 10/15/20 08:59 07/19/20 09:23 Ferrous Gluconate (Fergon) 324 mg BID ORAL 07/17/20 18:00 10/15/20 17:59 07/19/20 18:23 Furosemide (Lasix) 40 mg DAILY ORAL 07/17/20 09:00 08/16/20 08:59 07/19/20 09:23 Gabapentin (Neurontin) 100 mg Q12H PRN ORAL NEUROPATHIC PAIN 07/17/20 02:15 08/16/20 02:14 Heparin Sodium/ Sodium Chloride (Heparin 1000 units/500ml Premix) 1,000 unit ONCE PRN IV PICC LINE PLACEMENT 07/19/20 10:45 07/21/20 10:44 Hydromorphone HCl (Dilaudid) 0.5 mg Q4H PRN IVP For Pain 07/17/20 13:30 07/24/20 13:29 07/19/20 21:50 Lidocaine HCl (Xylocaine 1% 30ml) 30 ml ONCE PRN INJ PICC LINE PLACEMENT 07/19/20 10:45 07/21/20 10:44 Magnesium Hydroxide (Mom) 10 ml Q6H PRN ORAL HEARTBURN 07/17/20 07:30 08/16/20 07:29 07/17/20 07:35 Magnesium Oxide (Mag-Ox 400mg) 400 mg BID ORAL 07/17/20 09:00 08/16/20 08:59 07/19/20 18:23 Metformin HCl (Glucophage) 500 mg BIAC ORAL 07/17/20 06:30 08/16/20 06:29 07/20/20 06:03 Multivitamins (Multivitamins) 1 tab DAILY ORAL 07/17/20 09:00 08/16/20 08:59 07/19/20 09:24 Sennosides (Senokot) 8.6 mg DAILYPRN PRN ORAL Constipation 07/17/20 02:15 08/16/20 02:14 Assessment/Plan Assessment/Plan 1. History of DVT and pulmonary embolism. - continue Eliquis given no indication for acute surgical intervention per surgery and heme 2. Vaginal bleeding. - spotting now 3. Anemia. - on ferrous gluconate; IV iron if worsens 4. Lower extremity cellulitis., wound Cx- gram negative bacillus - wound care - no indication for acute surgical intervention per surgery - now off Vanco; started cefepime The care for this patient was discussed with my supervising physician Time spent for this case was approximately 31 minutes Mihir York Jul 20, 2020 08:23
[2020-07-20] MEDS: Magnesium Oxide 400mg tab ORAL SCH ×2 (09:02→17:34)
[2020-07-20] MEDS: Furosemide 40mg tab ORAL SCH (09:02)
[2020-07-20] MEDS: Allopurinol 100mg Tab ORAL SCH (09:02)
[2020-07-20] MEDS: Eliquis 2.5mg tablet ORAL SCH ×2 (09:02→17:35)
[2020-07-20] MEDS: Docusate 100mg cap ORAL SCH (09:02)
[2020-07-20] MEDS: Ferrous Gluconate 324 MG TAB ORAL SCH ×2 (09:02→17:35)
[2020-07-20] MEDS: HYDROmorphone 1mg/ml Carpuject IVP PRN ×4 (09:03→22:16)
[2020-07-20 12:00] VITALS: BP 141/95
--- NOTE | 2020-07-20 12:46 | Infectious Diseases Prog Note ---
Assessment/Plan Assessment/Plan IMPRESSION: Left leg cellulitis. -gram positive & pseudomonas in culture Morbid obesity, Hypertension, Diabetes mellitus, Stasis dermatitis, Anemia, Gout. RECOMMENDATION: continue Cefepime We will follow up the cultures. Subjective ROS Limited/Unobtainable: No Respiratory: Reports: productive cough Gastrointestinal/Abdominal: Reports: no symptoms Genitourinary: Reports: no symptoms Skin: Reports: other - clear drainge from left leg wound Musculoskeletal: Reports: pain, other - left leg Allergies: Coded Allergies: SULFA (SULFONAMIDE ANTIBIOTICS) (Unverified Allergy, Unknown, 05/02/15) allergy history per Dr. Jones Objective Last 24 Hour Vital Signs Date Time Temp Pulse Resp B/P (MAP) Pulse Ox O2 Delivery O2 Flow Rate FiO2 07/20/20 12:00 97.7 78 19 141/95 (110) 94 07/20/20 09:33 97.6 07/20/20 09:02 85 128/75 07/20/20 09:00 Room Air 07/20/20 08:00 97.2 93 19 131/91 (104) 97 07/20/20 04:00 97.6 85 20 128/75 (92) 99 07/20/20 00:28 89 18 100 Simple Mask 88 18 100 07/20/20 00:00 97.9 93 20 109/75 (86) 99 07/19/20 22:20 98.3 07/19/20 20:47 Room Air 07/19/20 20:00 98.3 87 20 148/87 (107) 99 07/19/20 16:51 97.7 07/19/20 16:00 98.1 89 20 154/69 (97) 99 Height (Feet): 6 Height (Inches): 1.00 Weight (Pounds): 420 HEENT: mucous membranes moist Respiratory/Chest: lungs clear Cardiovascular: normal rate, other - R arm PICC line Abdomen: soft, non tender Extremities: other - edema of legs Skin: ulcers, other - left leg Neurologic/Psychiatric: alert, 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, responsive Laboratory Tests Test 07/19/20 16:18 07/20/20 04:00 07/20/20 11:58 POC Whole Blood Glucose 126 MG/DL (74-106) H 126 MG/DL (74-106) H White Blood Count 12.3 K/UL (4.8-10.8) H Red Blood Count 4.27 M/UL (4.20-5.40) Hemoglobin 10.5 G/DL (12.0-16.0) L Hematocrit 36.0 % (37.0-47.0) L Mean Corpuscular Volume 84 FL (80-99) Mean Corpuscular Hemoglobin 24.5 PG (27.0-31.0) L Mean Corpuscular Hemoglobin Concent 29.0 G/DL (32.0-36.0) L Red Cell Distribution Width 17.6 % (11.6-14.8) H Platelet Count 239 K/UL (150-450) Mean Platelet Volume 7.0 FL (6.5-10.1) Neutrophils (%) (Auto) 80.7 % (45.0-75.0) H Lymphocytes (%) (Auto) 10.2 % (20.0-45.0) L Monocytes (%) (Auto) 6.5 % (1.0-10.0) Eosinophils (%) (Auto) 2.1 % (0.0-3.0) Basophils (%) (Auto) 0.5 % (0.0-2.0) Sodium Level 140 MMOL/L (136-145) Potassium Level 3.4 MMOL/L (3.5-5.1) L Chloride Level 101 MMOL/L (98-107) Carbon Dioxide Level 34 MMOL/L (21-32) H Anion Gap 5 mmol/L (5-15) Blood Urea Nitrogen 17 mg/dL (7-18) Creatinine 0.9 MG/DL (0.55-1.30) Estimat Glomerular Filtration Rate > 60 mL/min (>60) Glucose Level 119 MG/DL (74-106) H Calcium Level 8.8 MG/DL (8.5-10.1) Phosphorus Level 3.2 MG/DL (2.5-4.9) Magnesium Level 1.9 MG/DL (1.8-2.4) Current Medications Medications (Trade) Dose Ordered Sig/Key Route PRN Reason Start Time Stop Time Status Last Admin Dose Admin Acetaminophen (Tylenol) 650 mg Q6H PRN ORAL Mild Pain (Pain Scale 1-3) 07/17/20 02:15 08/16/20 02:14 07/17/20 11:50 Acetaminophen/ Hydrocodone Bitart ([place] 7.5/325) 1 tab Q4H PRN ORAL pain 4-10 07/17/20 02:15 07/24/20 02:14 Albuterol/ Ipratropium (Albuterol/ Ipratropium) 3 ml Q6HRT PRN HHN Shortness of Breath 07/17/20 02:15 07/22/20 02:14 07/20/20 00:20 Allopurinol (Zyloprim) 100 mg DAILY ORAL 07/17/20 09:00 08/16/20 08:59 07/20/20 09:02 Amlodipine Besylate (Norvasc) 5 mg DAILY ORAL 07/17/20 09:00 08/16/20 08:59 07/20/20 09:02 Apixaban (Eliquis) 2.5 mg BID ORAL 07/18/20 18:00 10/16/20 17:59 07/20/20 09:02 Cefepime HCl 1 gm/ Dextrose 55 ml @ 110 mls/hr Q12H IVPB 07/19/20 16:00 07/26/20 15:59 07/20/20 04:17 Chlorhexidine Gluconate (Priti-Hex 2%) 1 applic DAILY@2000 TOPIC 07/19/20 20:00 10/17/20 19:59 07/19/20 20:14 Dextrose (Dextrose 50%) 25 ml Q30M PRN IV Hypoglycemia 07/17/20 01:30 10/15/20 01:29 Dextrose (Dextrose 50%) 50 ml Q30M PRN IV Hypoglycemia 07/17/20 01:30 10/15/20 01:29 Docusate Sodium (Colace) 100 mg DAILY ORAL 07/17/20 09:00 08/16/20 08:59 07/20/20 09:02 Famotidine (Pepcid) 40 mg DAILY ORAL 07/17/20 09:00 10/15/20 08:59 07/20/20 09:02 Ferrous Gluconate (Fergon) 324 mg BID ORAL 07/17/20 18:00 10/15/20 17:59 07/20/20 09:02 Furosemide (Lasix) 40 mg DAILY ORAL 07/17/20 09:00 08/16/20 08:59 07/20/20 09:02 Gabapentin (Neurontin) 100 mg Q12H PRN ORAL NEUROPATHIC PAIN 07/17/20 02:15 08/16/20 02:14 Heparin Sodium/ Sodium Chloride (Heparin 1000 units/500ml Premix) 1,000 unit ONCE PRN IV PICC LINE PLACEMENT 07/19/20 10:45 07/21/20 10:44 Hydromorphone HCl (Dilaudid) 0.5 mg Q4H PRN IVP For Pain 07/17/20 13:30 07/24/20 13:29 07/20/20 09:03 Lidocaine HCl (Xylocaine 1% 30ml) 30 ml ONCE PRN INJ PICC LINE PLACEMENT 07/19/20 10:45 07/21/20 10:44 Magnesium Hydroxide (Mom) 10 ml Q6H PRN ORAL HEARTBURN 07/17/20 07:30 08/16/20 07:29 07/17/20 07:35 Magnesium Oxide (Mag-Ox 400mg) 400 mg BID ORAL 07/17/20 09:00 08/16/20 08:59 07/20/20 09:02 Metformin HCl (Glucophage) 500 mg BIAC ORAL 07/17/20 06:30 08/16/20 06:29 07/20/20 06:03 Multivitamins (Multivitamins) 1 tab DAILY ORAL 07/17/20 09:00 08/16/20 08:59 07/20/20 09:02 Sennosides (Senokot) 8.6 mg DAILYPRN PRN ORAL Constipation 07/17/20 02:15 08/16/20 02:14 Harrison Velasco MD Jul 20, 2020 12:46
--- NOTE | 2020-07-20 13:01 | Surgery Progress Note ---
Surgery Progress Note Subjective Additional Comments picc line placed wbc noted feels well other dee leg wrap okay Objective Last 24 Hour Vital Signs Date Time Temp Pulse Resp B/P (MAP) Pulse Ox O2 Delivery O2 Flow Rate FiO2 07/20/20 12:00 97.7 78 19 141/95 (110) 94 07/20/20 09:33 97.6 07/20/20 09:02 85 128/75 07/20/20 09:00 Room Air 07/20/20 08:00 97.2 93 19 131/91 (104) 97 07/20/20 04:00 97.6 85 20 128/75 (92) 99 07/20/20 00:28 89 18 100 Simple Mask 88 18 100 07/20/20 00:00 97.9 93 20 109/75 (86) 99 07/19/20 22:20 98.3 07/19/20 20:47 Room Air 07/19/20 20:00 98.3 87 20 148/87 (107) 99 07/19/20 16:51 97.7 07/19/20 16:00 98.1 89 20 154/69 (97) 99 I&O Intake and Output 07/19/20 07/20/20 19:00 07:00 Intake Total 1080 ml 200 ml Balance 1080 ml 200 ml Intake Oral 1080 ml 200 ml # Voids 3 2 # Bowel Movements 2 Dressing: dry Wound: clean, dry Cardiovascular: RSR Respiratory: clear Abdomen: soft, non-tender, present bowel sounds, non-distended Extremities: edema, no tenderness, no cyanosis Laboratory Tests Test 07/19/20 16:18 07/20/20 04:00 07/20/20 11:58 POC Whole Blood Glucose 126 MG/DL (74-106) H 126 MG/DL (74-106) H White Blood Count 12.3 K/UL (4.8-10.8) H Red Blood Count 4.27 M/UL (4.20-5.40) Hemoglobin 10.5 G/DL (12.0-16.0) L Hematocrit 36.0 % (37.0-47.0) L Mean Corpuscular Volume 84 FL (80-99) Mean Corpuscular Hemoglobin 24.5 PG (27.0-31.0) L Mean Corpuscular Hemoglobin Concent 29.0 G/DL (32.0-36.0) L Red Cell Distribution Width 17.6 % (11.6-14.8) H Platelet Count 239 K/UL (150-450) Mean Platelet Volume 7.0 FL (6.5-10.1) Neutrophils (%) (Auto) 80.7 % (45.0-75.0) H Lymphocytes (%) (Auto) 10.2 % (20.0-45.0) L Monocytes (%) (Auto) 6.5 % (1.0-10.0) Eosinophils (%) (Auto) 2.1 % (0.0-3.0) Basophils (%) (Auto) 0.5 % (0.0-2.0) Sodium Level 140 MMOL/L (136-145) Potassium Level 3.4 MMOL/L (3.5-5.1) L Chloride Level 101 MMOL/L (98-107) Carbon Dioxide Level 34 MMOL/L (21-32) H Anion Gap 5 mmol/L (5-15) Blood Urea Nitrogen 17 mg/dL (7-18) Creatinine 0.9 MG/DL (0.55-1.30) Estimat Glomerular Filtration Rate > 60 mL/min (>60) Glucose Level 119 MG/DL (74-106) H Calcium Level 8.8 MG/DL (8.5-10.1) Phosphorus Level 3.2 MG/DL (2.5-4.9) Magnesium Level 1.9 MG/DL (1.8-2.4) Plan Problems: (1) Morbid obesity (2) Acute cholecystitis (3) Acute cholecystitis (4) Hypokalemia (5) Hypokalemia (6) Atypical psychosis (7) Acute blood loss anemia (8) Thrush (9) Gout (10) Morbid obesity (11) Anemia (12) Back pain (13) Cellulitis Assessment & Plan: 59-year-old female chronic lower extremity edema cellulitis bilateral prior currently bilateral edema but cellulitis on the left side. Lateral aspect distal small skin partial-thickness abrasion 1 cm x 1 cm identified. Warm difficult to check pulses given size of the extremity overall morbidly obese BMI 55. No abscess identified no fluid collections identified generalized edema and cellulitis noted. No acute surgical intervention planned at this time. Arterial and venous duplexes will be ordered. Okay for diet. Keep bilateral lower extremities elevated while in bed. Activity as tolerated. Wash left lower extremity foot and ankle with normal saline. Apply Thera honey cover with Xeroform ABD and wrap with gauze. Daily and as needed. Antibiotics per infectious disease. Will follow with recommendations. Thank you for letting participate patient's care (14) Cough (15) Diarrhea (16) SOB (shortness of breath) (17) Flank pain (18) Leukocytosis (19) Leukocytosis (20) Post-menopausal bleeding (21) Vaginal bleeding (22) Hypoalbuminemia (23) Sepsis (24) Rectal bleeding (25) Venous stasis (26) Hypertension (27) Pneumonitis (28) Obesity (29) HTN (hypertension) (30) Chronic pain (31) Muscle ache (32) Cellulitis, leg (33) Cellulitis, leg (34) Clostridium difficile colitis (35) ACS (acute coronary syndrome) (36) Abnormal laboratory test result (37) Diabetes type 2, controlled (38) Factor V Leiden (39) Shoulder pain, right (40) Cellulitis of right leg (41) Cellulitis of right leg (42) BMI 60.0-69.9, adult (43) Chronic wound of extremity (44) Flank pain, acute (45) Injury of lower extremity (46) Left leg cellulitis (47) Left leg cellulitis (48) Factor 5 Leiden mutation, heterozygous (49) DVT, bilateral lower limbs (50) Elevated lactic acid level (51) Bilateral cellulitis of lower leg (52) Bilateral lower leg cellulitis (53) Poor intravenous access (54) DVT, recurrent, lower extremity, acute and chronic (55) Deep vein thrombosis (DVT) of left lower extremity (56) COVID-19 ruled out by laboratory testing (57) Acute DVT of LLE (58) lives on own at home (59) lateral posterior left leg superficial skin breakdown ulcer (60) abdominal wall swelling (61) leg pain (62) probable abscess Chuy Damian Jul 20, 2020 13:01
[2020-07-20 15:47] VITALS: BP 114/85
[2020-07-20 20:00] VITALS: BP 113/72
[2020-07-20] MEDS: Dyna-Hex 2% Top Sol 2oz TOPIC SCH (20:11)
--- NOTE | 2020-07-20 20:29 | NUR ---
NURSE NOTES: Received patient sitting up in bed, no s/s of acute distress. PICC running TKO on one lumen. Bed low and locked, patient wearing non slip socks. Bedside commode and belongings within reach.
--- NOTE | 2020-07-20 20:31 | Internal Med Progress Note ---
Subjective Physician Name Nikki Wyatt Attending Physician Nikki Wyatt M.D. Current Medications Medications (Trade) Dose Ordered Sig/Key Route PRN Reason Start Time Stop Time Status Last Admin Dose Admin Acetaminophen (Tylenol) 650 mg Q6H PRN ORAL Mild Pain (Pain Scale 1-3) 07/17/20 02:15 08/16/20 02:14 07/17/20 11:50 Acetaminophen/ Hydrocodone Bitart ([place] 7.5/325) 1 tab Q4H PRN ORAL pain 4-10 07/17/20 02:15 07/24/20 02:14 Albuterol/ Ipratropium (Albuterol/ Ipratropium) 3 ml Q6HRT PRN HHN Shortness of Breath 07/17/20 02:15 07/22/20 02:14 07/20/20 00:20 Allopurinol (Zyloprim) 100 mg DAILY ORAL 07/17/20 09:00 08/16/20 08:59 07/20/20 09:02 Amlodipine Besylate (Norvasc) 5 mg DAILY ORAL 07/17/20 09:00 08/16/20 08:59 07/20/20 09:02 Apixaban (Eliquis) 2.5 mg BID ORAL 07/18/20 18:00 10/16/20 17:59 07/20/20 17:35 Cefepime HCl 1 gm/ Dextrose 55 ml @ 110 mls/hr Q12H IVPB 07/19/20 16:00 07/26/20 15:59 07/20/20 17:35 Chlorhexidine Gluconate (Priti-Hex 2%) 1 applic DAILY@2000 TOPIC 07/19/20 20:00 10/17/20 19:59 07/20/20 20:11 Dextrose (Dextrose 50%) 25 ml Q30M PRN IV Hypoglycemia 07/17/20 01:30 10/15/20 01:29 Dextrose (Dextrose 50%) 50 ml Q30M PRN IV Hypoglycemia 07/17/20 01:30 10/15/20 01:29 Docusate Sodium (Colace) 100 mg DAILY ORAL 07/17/20 09:00 08/16/20 08:59 07/20/20 09:02 Famotidine (Pepcid) 40 mg DAILY ORAL 07/17/20 09:00 10/15/20 08:59 07/20/20 09:02 Ferrous Gluconate (Fergon) 324 mg BID ORAL 07/17/20 18:00 10/15/20 17:59 07/20/20 17:35 Furosemide (Lasix) 40 mg DAILY ORAL 07/17/20 09:00 08/16/20 08:59 07/20/20 09:02 Gabapentin (Neurontin) 100 mg Q12H PRN ORAL NEUROPATHIC PAIN 07/17/20 02:15 08/16/20 02:14 Heparin Sodium/ Sodium Chloride (Heparin 1000 units/500ml Premix) 1,000 unit ONCE PRN IV PICC LINE PLACEMENT 07/19/20 10:45 07/21/20 10:44 Hydromorphone HCl (Dilaudid) 0.5 mg Q4H PRN IVP For Pain 07/17/20 13:30 07/24/20 13:29 07/20/20 17:35 Lidocaine HCl (Xylocaine 1% 30ml) 30 ml ONCE PRN INJ PICC LINE PLACEMENT 07/19/20 10:45 07/21/20 10:44 Magnesium Hydroxide (Mom) 10 ml Q6H PRN ORAL HEARTBURN 07/17/20 07:30 08/16/20 07:29 07/17/20 07:35 Magnesium Oxide (Mag-Ox 400mg) 400 mg BID ORAL 07/17/20 09:00 08/16/20 08:59 07/20/20 17:34 Metformin HCl (Glucophage) 500 mg BIAC ORAL 07/17/20 06:30 08/16/20 06:29 07/20/20 17:39 Multivitamins (Multivitamins) 1 tab DAILY ORAL 07/17/20 09:00 08/16/20 08:59 07/20/20 09:02 Sennosides (Senokot) 8.6 mg DAILYPRN PRN ORAL Constipation 07/17/20 02:15 08/16/20 02:14 Allergies: Coded Allergies: SULFA (SULFONAMIDE ANTIBIOTICS) (Unverified Allergy, Unknown, 05/02/15) allergy history per Dr. Robert BAUER Limited/Unobtainable: No Constitutional: Reports: weakness HEENT: Denies: no symptoms, eye pain, blurred vision, tearing, double vision, ear pain, ear discharge, nose pain, nose congestion, throat pain, throat swell ing, mouth pain, mouth swelling, other Cardiovascular: Denies: no symptoms, chest pain, edema, irregular heart rate, lightheadedness, palpitations, syncope, other Respiratory: Denies: no symptoms, cough, orthopnea, shortness of breath, SOB with excertion, SOB at rest, sputum, stridor, wheezing, other Gastrointestinal/Abdominal: Denies: no symptoms, abdomen distended, abdominal pain, black stools, tarry stools, blood in stool, constipated, diarrhea, difficulty swallowing, nausea, poor appetite, poor fluid intake, rectal bleeding, vomiting, other Genitourinary: Denies: no symptoms, burning, discharge, frequency, flank pain, hematuria, incontinence, pain, urgency, other Neurologic/Psychiatric: Denies: no symptoms, anxiety, depressed, emotional problems, headache, numbness, paresthesia, pre-existing deficit, seizure, tingling, tremors, weakness, other Subjective K low repleted hemoglobin stable resuming apixaban today Objective Last Vital Signs Date Time Temp Pulse Resp B/P (MAP) Pulse Ox O2 Delivery O2 Flow Rate FiO2 07/20/20 18:05 97.1 07/20/20 15:47 97 19 114/85 (95) 96 07/20/20 09:00 Room Air Laboratory Tests Test 07/20/20 04:00 07/20/20 11:58 07/20/20 17:10 White Blood Count 12.3 K/UL (4.8-10.8) H Red Blood Count 4.27 M/UL (4.20-5.40) Hemoglobin 10.5 G/DL (12.0-16.0) L Hematocrit 36.0 % (37.0-47.0) L Mean Corpuscular Volume 84 FL (80-99) Mean Corpuscular Hemoglobin 24.5 PG (27.0-31.0) L Mean Corpuscular Hemoglobin Concent 29.0 G/DL (32.0-36.0) L Red Cell Distribution Width 17.6 % (11.6-14.8) H Platelet Count 239 K/UL (150-450) Mean Platelet Volume 7.0 FL (6.5-10.1) Neutrophils (%) (Auto) 80.7 % (45.0-75.0) H Lymphocytes (%) (Auto) 10.2 % (20.0-45.0) L Monocytes (%) (Auto) 6.5 % (1.0-10.0) Eosinophils (%) (Auto) 2.1 % (0.0-3.0) Basophils (%) (Auto) 0.5 % (0.0-2.0) Sodium Level 140 MMOL/L (136-145) Potassium Level 3.4 MMOL/L (3.5-5.1) L Chloride Level 101 MMOL/L (98-107) Carbon Dioxide Level 34 MMOL/L (21-32) H Anion Gap 5 mmol/L (5-15) Blood Urea Nitrogen 17 mg/dL (7-18) Creatinine 0.9 MG/DL (0.55-1.30) Estimat Glomerular Filtration Rate > 60 mL/min (>60) Glucose Level 119 MG/DL (74-106) H Calcium Level 8.8 MG/DL (8.5-10.1) Phosphorus Level 3.2 MG/DL (2.5-4.9) Magnesium Level 1.9 MG/DL (1.8-2.4) POC Whole Blood Glucose 126 MG/DL (74-106) H 144 MG/DL (74-106) H Intake and Output 07/19/20 07/20/20 19:00 07:00 Intake Total 1080 ml 200 ml Balance 1080 ml 200 ml Intake Oral 1080 ml 200 ml # Voids 3 2 # Bowel Movements 2 Assessment/Plan Assessment/Plan #Bleeding from Piccline #vaginal bleeding? #h/o DVT/PE #HTN #LE cellulitis #obesity - admit inpatient - ID eval - pulm eval - resume apixaban when bleeding r/oed - monitor hemoglobin - IV antibiotic per ID - amlodipine 5mg daily - laix 40 daily - monitor lytes - wound care - gen surg Nikki Major M.D. Jul 20, 2020 20:31
[2020-07-21] VITALS: BP 108/64
[2020-07-21] MEDS: HYDROmorphone 1mg/ml Carpuject IVP PRN ×2 (02:50→10:04)
[2020-07-21] MEDS: Cefepime HCl 1 GM in D5W 55 ML IVPB SCH (04:00)
[2020-07-21 05:05] LABS: BASOPHILS % (AUTO) 1.4 % (0.0-2.0); EOSINOPHILS % (AUTO) 2.5 % (0.0-3.0); HEMATOCRIT 34.4 % (37.0-47.0); HEMOGLOBIN 10.2 G/DL (12.0-16.0); LYMPHOCYTES % (AUTO) 9.5 % (20.0-45.0); MEAN CORPUSCULAR VOLUME 84 FL (80-99); MONOCYTES % (AUTO) 5.6 % (1.0-10.0); NEUTROPHILS % (AUTO) 80.9 % (45.0-75.0); PLATELET COUNT 228 K/UL (150-450); RED BLOOD COUNT 4.08 M/UL (4.20-5.40); WHITE BLOOD COUNT 12.8 K/UL (4.8-10.8)
[2020-07-21 05:37] LABS: ALANINE AMINOTRANSFERASE 17 U/L (12-78); ALBUMIN 2.8 G/DL (3.4-5.0); ALBUMIN/GLOBULIN RATIO 0.6 (1.0-2.7); ALKALINE PHOSPHATASE 81 U/L (46-116); ANION GAP 5 mmol/L (5-15); ASPARTATE AMINO TRANSFERASE 17 U/L (15-37); BILIRUBIN,TOTAL 0.2 MG/DL (0.2-1.0); BLOOD UREA NITROGEN 16 mg/dL (7-18); CALCIUM 8.5 MG/DL (8.5-10.1); CARBON DIOXIDE 32 MMOL/L (21-32); CHLORIDE 103 MMOL/L (98-107); CREATININE 0.8 MG/DL (0.55-1.30); POTASSIUM 3.9 MMOL/L (3.5-5.1); SODIUM 140 MMOL/L (136-145)
[2020-07-21] MEDS: metFORMIN 500mg tab ORAL SCH (06:13)
--- NOTE | 2020-07-21 06:37 | Hematology/Onc Progress Note ---
Assessment/Plan Assessment/Plan Assessment/Plan # DVT (on AC) of the left lower extremity popliteal vein -- likely related 2/2 inflammatory process and stasis, cellulitis making clot return, has been dealing with recurrent clots since 2011. Have discussed extensively with her the prior treatments she has received, which have included coumadin, eliquis, xarelto, lovenox --> given h/h stable, okay to proceed with anticoag, in the past did well on xarelto and only reason it was changed was because of drug interaction --> at this time was on apixaban as outpatient --> given holding off on surg intervention, apixaban resumed # Anemia of iron deficiency, ferritin is very low --> continue on po ferrous gluconate --> Monitor closely --> repeat ferritin, r/o gi bleed --> consider iv iron if worsens --> hgb 10.5 # Leukocytosis with B/l leg swelling/pain/redness. Pt notes symptoms for the past few days. She has a history of cellulitis of leg previously treated with a ntibiotics. --> per ID vanc-->cafepime --> wbc 12 # Vaginal bleed # Hypokalemia # Dvt ppx apixaban Appreciate consultation and dw Rn Subjective Constitutional: Denies: no symptoms, chills, fever, malaise, weakness, other HEENT: Denies: no symptoms, eye pain, blurred vision, tearing, double vision, ear pain, ear discharge, nose pain, nose congestion, throat pain, throat swelling, mouth pain, mouth swelling, other Cardiovascular: Denies: no symptoms, chest pain, edema, irregular heart rate, lightheadedness, palpitations, syncope, other Respiratory: Denies: no symptoms, cough, shortness of breath, SOB with excertion, SOB at rest, sputum, wheezing, other Genitourinary: Denies: no symptoms, burning, discharge, frequency, flank pain, hematuria, incontinence, pain, urgency, other Neurologic/Psychiatric: Denies: no symptoms, anxiety, depressed, emotional problems, headache, numbness, paresthesia, pre-existing deficit, seizure, tingling, tremors, weakness, other Endocrine: Denies: no symptoms, excessive sweating, flushing, intolerance to cold, intolerance to heat, increased hunger, increased thirst, increased urine, unexplained weight gain, unexplained weight loss, other Allergies: Coded Allergies: SULFA (SULFONAMIDE ANTIBIOTICS) (Unverified Allergy, Unknown, 05/02/15) allergy history per Dr. Jones Subjective 07/19 remains on vanc for lower ext cellulitis, has been restarted on apixaban po 07/20 picc line right arm in place, is on apixaban as well 07/21 labs reviewed, meds noted, with picc in place, no bleeding Objective Objective Current Medications Medications (Trade) Dose Ordered Sig/Key Route PRN Reason Start Time Stop Time Status Last Admin Dose Admin Acetaminophen (Tylenol) 650 mg Q6H PRN ORAL Mild Pain (Pain Scale 1-3) 07/17/20 02:15 08/16/20 02:14 07/17/20 11:50 Acetaminophen/ Hydrocodone Bitart ([place] 7.5/325) 1 tab Q4H PRN ORAL pain 4-10 07/17/20 02:15 07/24/20 02:14 Albuterol/ Ipratropium (Albuterol/ Ipratropium) 3 ml Q6HRT PRN HHN Shortness of Breath 07/17/20 02:15 07/22/20 02:14 07/20/20 00:20 Allopurinol (Zyloprim) 100 mg DAILY ORAL 07/17/20 09:00 08/16/20 08:59 07/20/20 09:02 Amlodipine Besylate (Norvasc) 5 mg DAILY ORAL 07/17/20 09:00 08/16/20 08:59 07/20/20 09:02 Apixaban (Eliquis) 2.5 mg BID ORAL 07/18/20 18:00 10/16/20 17:59 07/20/20 17:35 Cefepime HCl 1 gm/ Dextrose 55 ml @ 110 mls/hr Q12H IVPB 07/19/20 16:00 07/26/20 15:59 07/21/20 04:00 Chlorhexidine Gluconate (Priti-Hex 2%) 1 applic DAILY@2000 TOPIC 07/19/20 20:00 10/17/20 19:59 07/20/20 20:11 Dextrose (Dextrose 50%) 25 ml Q30M PRN IV Hypoglycemia 07/17/20 01:30 10/15/20 01:29 Dextrose (Dextrose 50%) 50 ml Q30M PRN IV Hypoglycemia 07/17/20 01:30 10/15/20 01:29 Docusate Sodium (Colace) 100 mg DAILY ORAL 07/17/20 09:00 08/16/20 08:59 07/20/20 09:02 Famotidine (Pepcid) 40 mg DAILY ORAL 07/17/20 09:00 10/15/20 08:59 07/20/20 09:02 Ferrous Gluconate (Fergon) 324 mg BID ORAL 07/17/20 18:00 10/15/20 17:59 07/20/20 17:35 Furosemide (Lasix) 40 mg DAILY ORAL 07/17/20 09:00 08/16/20 08:59 07/20/20 09:02 Gabapentin (Neurontin) 100 mg Q12H PRN ORAL NEUROPATHIC PAIN 07/17/20 02:15 08/16/20 02:14 Heparin Sodium/ Sodium Chloride (Heparin 1000 units/500ml Premix) 1,000 unit ONCE PRN IV PICC LINE PLACEMENT 07/19/20 10:45 07/21/20 10:44 Hydromorphone HCl (Dilaudid) 0.5 mg Q4H PRN IVP For Pain 07/17/20 13:30 07/24/20 13:29 07/21/20 02:50 Lidocaine HCl (Xylocaine 1% 30ml) 30 ml ONCE PRN INJ PICC LINE PLACEMENT 07/19/20 10:45 07/21/20 10:44 Magnesium Hydroxide (Mom) 10 ml Q6H PRN ORAL HEARTBURN 07/17/20 07:30 08/16/20 07:29 07/17/20 07:35 Magnesium Oxide (Mag-Ox 400mg) 400 mg BID ORAL 07/17/20 09:00 08/16/20 08:59 07/20/20 17:34 Metformin HCl (Glucophage) 500 mg BIAC ORAL 07/17/20 06:30 08/16/20 06:29 07/21/20 06:13 Multivitamins (Multivitamins) 1 tab DAILY ORAL 07/17/20 09:00 08/16/20 08:59 07/20/20 09:02 Sennosides (Senokot) 8.6 mg DAILYPRN PRN ORAL Constipation 07/17/20 02:15 08/16/20 02:14 Last 24 Hour Vital Signs Date Time Temp Pulse Resp B/P (MAP) Pulse Ox O2 Delivery O2 Flow Rate FiO2 07/21/20 03:20 97.7 07/21/20 00:00 97.7 69 20 108/64 (79) 96 07/20/20 22:46 97.1 07/20/20 21:07 Room Air 07/20/20 20:00 97.3 89 19 113/72 (86) 96 07/20/20 18:05 97.1 07/20/20 15:47 97.1 97 19 114/85 (95) 96 07/20/20 13:33 97.7 07/20/20 12:00 97.7 78 19 141/95 (110) 94 07/20/20 09:33 97.6 07/20/20 09:02 85 128/75 07/20/20 09:00 Room Air 07/20/20 08:00 97.2 93 19 131/91 (104) 97 07/20/20 04:00 97.6 85 20 128/75 (92) 99 07/20/20 00:28 89 18 100 Simple Mask 88 18 100 07/20/20 00:00 97.9 93 20 109/75 (86) 99 07/19/20 22:20 98.3 07/19/20 20:47 Room Air 07/19/20 20:00 98.3 87 20 148/87 (107) 99 07/19/20 16:51 97.7 07/19/20 16:00 98.1 89 20 154/69 (97) 99 07/19/20 12:00 97.7 83 20 131/82 (98) 98 07/19/20 09:59 97.9 07/19/20 09:23 87 126/88 07/19/20 09:00 Room Air 07/19/20 08:00 97.9 87 20 126/88 (101) 94 Intake and Output 07/20/20 07/21/20 19:00 07:00 Intake Total 650 ml Balance 650 ml Other 650 ml # Voids 2 Labs Test 07/18/20 09:30 07/18/20 11:46 07/18/20 17:28 07/19/20 05:20 White Blood Count 11.7 K/UL (4.8-10.8) 11.5 K/UL (4.8-10.8) Red Blood Count 4.23 M/UL (4.20-5.40) 4.30 M/UL (4.20-5.40) Hemoglobin 10.5 G/DL (12.0-16.0) 10.7 G/DL (12.0-16.0) Hematocrit 36.0 % (37.0-47.0) 37.1 % (37.0-47.0) Mean Corpuscular Volume 85 FL (80-99) 86 FL (80-99) Mean Corpuscular Hemoglobin 24.9 PG (27.0-31.0) 24.8 PG (27.0-31.0) Mean Corpuscular Hemoglobin Concent 29.2 G/DL (32.0-36.0) 28.7 G/DL (32.0-36.0) Red Cell Distribution Width 18.3 % (11.6-14.8) 18.1 % (11.6-14.8) Platelet Count 241 K/UL (150-450) 223 K/UL (150-450) Mean Platelet Volume 6.9 FL (6.5-10.1) 7.1 FL (6.5-10.1) Neutrophils (%) (Auto) 79.7 % (45.0-75.0) 79.1 % (45.0-75.0) Lymphocytes (%) (Auto) 11.0 % (20.0-45.0) 11.0 % (20.0-45.0) Monocytes (%) (Auto) 6.3 % (1.0-10.0) 6.5 % (1.0-10.0) Eosinophils (%) (Auto) 2.4 % (0.0-3.0) 2.6 % (0.0-3.0) Basophils (%) (Auto) 0.6 % (0.0-2.0) 0.8 % (0.0-2.0) Sodium Level 141 MMOL/L (136-145) 141 MMOL/L (136-145) Potassium Level 3.4 MMOL/L (3.5-5.1) 3.5 MMOL/L (3.5-5.1) Chloride Level 101 MMOL/L (98-107) 102 MMOL/L (98-107) Carbon Dioxide Level 34 MMOL/L (21-32) 32 MMOL/L (21-32) Anion Gap 6 mmol/L (5-15) 7 mmol/L (5-15) Blood Urea Nitrogen 16 mg/dL (7-18) 16 mg/dL (7-18) Creatinine 0.8 MG/DL (0.55-1.30) 0.9 MG/DL (0.55-1.30) Estimat Glomerular Filtration Rate > 60 mL/min (>60) > 60 mL/min (>60) Glucose Level 128 MG/DL (74-106) 157 MG/DL (74-106) Calcium Level 9.0 MG/DL (8.5-10.1) 8.9 MG/DL (8.5-10.1) Phosphorus Level 3.9 MG/DL (2.5-4.9) 3.4 MG/DL (2.5-4.9) Magnesium Level 2.1 MG/DL (1.8-2.4) 2.0 MG/DL (1.8-2.4) Vancomycin Level Trough 14.0 ug/mL (5.0-12.0) POC Whole Blood Glucose 143 MG/DL (74-106) Ferritin 26 NG/ML (8-388) Test 07/19/20 06:12 07/19/20 16:18 07/20/20 04:00 07/20/20 11:58 POC Whole Blood Glucose 160 MG/DL (74-106) 126 MG/DL (74-106) 126 MG/DL (74-106) White Blood Count 12.3 K/UL (4.8-10.8) Red Blood Count 4.27 M/UL (4.20-5.40) Hemoglobin 10.5 G/DL (12.0-16.0) Hematocrit 36.0 % (37.0-47.0) Mean Corpuscular Volume 84 FL (80-99) Mean Corpuscular Hemoglobin 24.5 PG (27.0-31.0) Mean Corpuscular Hemoglobin Concent 29.0 G/DL (32.0-36.0) Red Cell Distribution Width 17.6 % (11.6-14.8) Platelet Count 239 K/UL (150-450) Mean Platelet Volume 7.0 FL (6.5-10.1) Neutrophils (%) (Auto) 80.7 % (45.0-75.0) Lymphocytes (%) (Auto) 10.2 % (20.0-45.0) Monocytes (%) (Auto) 6.5 % (1.0-10.0) Eosinophils (%) (Auto) 2.1 % (0.0-3.0) Basophils (%) (Auto) 0.5 % (0.0-2.0) Sodium Level 140 MMOL/L (136-145) Potassium Level 3.4 MMOL/L (3.5-5.1) Chloride Level 101 MMOL/L (98-107) Carbon Dioxide Level 34 MMOL/L (21-32) Anion Gap 5 mmol/L (5-15) Blood Urea Nitrogen 17 mg/dL (7-18) Creatinine 0.9 MG/DL (0.55-1.30) Estimat Glomerular Filtration Rate > 60 mL/min (>60) Glucose Level 119 MG/DL (74-106) Calcium Level 8.8 MG/DL (8.5-10.1) Phosphorus Level 3.2 MG/DL (2.5-4.9) Magnesium Level 1.9 MG/DL (1.8-2.4) Test 07/20/20 17:10 07/21/20 04:30 POC Whole Blood Glucose 144 MG/DL (74-106) White Blood Count 12.8 K/UL (4.8-10.8) Red Blood Count 4.08 M/UL (4.20-5.40) Hemoglobin 10.2 G/DL (12.0-16.0) Hematocrit 34.4 % (37.0-47.0) Mean Corpuscular Volume 84 FL (80-99) Mean Corpuscular Hemoglobin 24.9 PG (27.0-31.0) Mean Corpuscular Hemoglobin Concent 29.5 G/DL (32.0-36.0) Red Cell Distribution Width 18.0 % (11.6-14.8) Platelet Count 228 K/UL (150-450) Mean Platelet Volume 7.1 FL (6.5-10.1) Neutrophils (%) (Auto) 80.9 % (45.0-75.0) Lymphocytes (%) (Auto) 9.5 % (20.0-45.0) Monocytes (%) (Auto) 5.6 % (1.0-10.0) Eosinophils (%) (Auto) 2.5 % (0.0-3.0) Basophils (%) (Auto) 1.4 % (0.0-2.0) Sodium Level 140 MMOL/L (136-145) Potassium Level 3.9 MMOL/L (3.5-5.1) Chloride Level 103 MMOL/L (98-107) Carbon Dioxide Level 32 MMOL/L (21-32) Anion Gap 5 mmol/L (5-15) Blood Urea Nitrogen 16 mg/dL (7-18) Creatinine 0.8 MG/DL (0.55-1.30) Estimat Glomerular Filtration Rate > 60 mL/min (>60) Glucose Level 108 MG/DL (74-106) Calcium Level 8.5 MG/DL (8.5-10.1) Total Bilirubin 0.2 MG/DL (0.2-1.0) Aspartate Amino Transf (AST/SGOT) 17 U/L (15-37) Alanine Aminotransferase (ALT/SGPT) 17 U/L (12-78) Alkaline Phosphatase 81 U/L (46-116) Total Protein 7.5 G/DL (6.4-8.2) Albumin 2.8 G/DL (3.4-5.0) Globulin 4.7 g/dL Albumin/Globulin Ratio 0.6 (1.0-2.7) Height (Feet): 6 Height (Inches): 1.00 Weight (Pounds): 420 Objective Gen: nad Pulm: ctab, no cwr CV: rrr, no mgr Abd: soft, nt, nd Ext: left lower ext cellulitis+ Dinesh Rodríguez MD Jul 21, 2020 06:37
--- NOTE | 2020-07-21 07:14 | NUR ---
NURSE NOTES: Report given to MARY Carmen
--- NOTE | 2020-07-21 07:40 | NUR ---
NURSE NOTES: RN received report from Celestina and patient in bed. Patient is [id number], denies respiratory distress or pain. The purple lumen is clogged but the red lumen of the PICC line is patent. Dr. Wyatt notified but no further orders. Bed in lowest position, locked. Call light within reach and patient able to make needs known. Will continue to monitor.
[2020-07-21 08:00] VITALS: BP 137/84
[2020-07-21] MEDS: Magnesium Oxide 400mg tab ORAL SCH (08:27)
[2020-07-21] MEDS: Docusate 100mg cap ORAL SCH (08:28)
[2020-07-21] MEDS: Allopurinol 100mg Tab ORAL SCH (08:28)
[2020-07-21] MEDS: Eliquis 2.5mg tablet ORAL SCH (08:28)
[2020-07-21] MEDS: Ferrous Gluconate 324 MG TAB ORAL SCH (08:28)
[2020-07-21] MEDS: Furosemide 40mg tab ORAL SCH (08:29)
--- NOTE | 2020-07-21 09:26 | Pulmonology Progress Note ---
Subjective ROS Limited/Unobtainable: No Interval Events: None new Constitutional: Reports: no symptoms HEENT: Repors: no symptoms Respiratory: Reports: no symptoms Cardiovascular: Reports: no symptoms Gastrointestinal/Abdominal: Reports: no symptoms Genitourinary: Reports: no symptoms Skin: Reports: other - clear drainge from left leg wound Musculoskeletal: Reports: pain, other - left leg Allergies: Coded Allergies: SULFA (SULFONAMIDE ANTIBIOTICS) (Unverified Allergy, Unknown, 05/02/15) allergy history per Dr. Jones Objective Last 24 Hour Vital Signs Date Time Temp Pulse Resp B/P (MAP) Pulse Ox O2 Delivery O2 Flow Rate FiO2 07/21/20 08:28 94 137/84 07/21/20 08:00 98.2 94 20 137/84 (101) 97 07/21/20 03:20 97.7 07/21/20 00:00 97.7 69 20 108/64 (79) 96 07/20/20 22:46 97.1 07/20/20 21:07 Room Air 07/20/20 20:00 97.3 89 19 113/72 (86) 96 07/20/20 18:05 97.1 07/20/20 15:47 97.1 97 19 114/85 (95) 96 07/20/20 13:33 97.7 07/20/20 12:00 97.7 78 19 141/95 (110) 94 07/20/20 09:33 97.6 Intake and Output 07/20/20 07/21/20 19:00 07:00 Intake Total 650 ml Balance 650 ml Other 650 ml # Voids 2 General Appearance: no acute distress Respiratory: chest wall non-tender Cardiovascular: normal peripheral pulses Abdomen: normal bowel sounds Extremities: other - LE cellulitis Laboratory Tests 07/20/20 11:58: POC Whole Blood Glucose 126H 07/20/20 17:10: POC Whole Blood Glucose 144H 07/21/20 04:30: White Blood Count 12.8H, Red Blood Count 4.08L, Hemoglobin 10.2L, Hematocrit 34.4L, Mean Corpuscular Volume 84, Mean Corpuscular Hemoglobin 24.9L, Mean Corpuscular Hemoglobin Concent 29.5L, Red Cell Distribution Width 18.0H, Platelet Count 228, Mean Platelet Volume 7.1, Neutrophils (%) (Auto) 80.9H, Lymphocytes (%) (Auto) 9.5L, Monocytes (%) (Auto) 5.6, Eosinophils (%) (Auto) 2.5, Basophils (%) (Auto) 1.4, Sodium Level 140, Potassium Level 3.9, Chloride Level 103, Carbon Dioxide Level 32, Anion Gap 5, Blood Urea Nitrogen 16, Creatinine 0.8, Estimat Glomerular Filtration Rate > 60, Glucose Level 108H, Calcium Level 8.5, Total Bilirubin 0.2, Aspartate Amino Transf (AST/SGOT) 17, Alanine Aminotransferase (ALT/SGPT) 17, Alkaline Phosphatase 81, Total Protein 7.5, Albumin 2.8L, Globulin 4.7, Albumin/Globulin Ratio 0.6L Current Medications Medications (Trade) Dose Ordered Sig/Key Route PRN Reason Start Time Stop Time Status Last Admin Dose Admin Acetaminophen (Tylenol) 650 mg Q6H PRN ORAL Mild Pain (Pain Scale 1-3) 07/17/20 02:15 08/16/20 02:14 07/17/20 11:50 Acetaminophen/ Hydrocodone Bitart ([place] 7.5/325) 1 tab Q4H PRN ORAL pain 4-10 07/17/20 02:15 07/24/20 02:14 Albuterol/ Ipratropium (Albuterol/ Ipratropium) 3 ml Q6HRT PRN HHN Shortness of Breath 07/17/20 02:15 07/22/20 02:14 07/20/20 00:20 Allopurinol (Zyloprim) 100 mg DAILY ORAL 07/17/20 09:00 08/16/20 08:59 07/21/20 08:28 Amlodipine Besylate (Norvasc) 5 mg DAILY ORAL 07/17/20 09:00 08/16/20 08:59 07/21/20 08:28 Apixaban (Eliquis) 2.5 mg BID ORAL 07/18/20 18:00 10/16/20 17:59 07/21/20 08:28 Cefepime HCl 1 gm/ Dextrose 55 ml @ 110 mls/hr Q12H IVPB 07/19/20 16:00 07/26/20 15:59 07/21/20 04:00 Chlorhexidine Gluconate (Priti-Hex 2%) 1 applic DAILY@2000 TOPIC 07/19/20 20:00 10/17/20 19:59 07/20/20 20:11 Dextrose (Dextrose 50%) 25 ml Q30M PRN IV Hypoglycemia 07/17/20 01:30 10/15/20 01:29 Dextrose (Dextrose 50%) 50 ml Q30M PRN IV Hypoglycemia 07/17/20 01:30 10/15/20 01:29 Docusate Sodium (Colace) 100 mg DAILY ORAL 07/17/20 09:00 08/16/20 08:59 07/21/20 08:28 Famotidine (Pepcid) 40 mg DAILY ORAL 07/17/20 09:00 10/15/20 08:59 07/21/20 08:28 Ferrous Gluconate (Fergon) 324 mg BID ORAL 07/17/20 18:00 10/15/20 17:59 07/21/20 08:28 Furosemide (Lasix) 40 mg DAILY ORAL 07/17/20 09:00 08/16/20 08:59 07/21/20 08:29 Gabapentin (Neurontin) 100 mg Q12H PRN ORAL NEUROPATHIC PAIN 07/17/20 02:15 08/16/20 02:14 Heparin Sodium/ Sodium Chloride (Heparin 1000 units/500ml Premix) 1,000 unit ONCE PRN IV PICC LINE PLACEMENT 07/19/20 10:45 07/21/20 10:44 Hydromorphone HCl (Dilaudid) 0.5 mg Q4H PRN IVP For Pain 07/17/20 13:30 07/24/20 13:29 07/21/20 02:50 Lidocaine HCl (Xylocaine 1% 30ml) 30 ml ONCE PRN INJ PICC LINE PLACEMENT 07/19/20 10:45 07/21/20 10:44 Magnesium Hydroxide (Mom) 10 ml Q6H PRN ORAL HEARTBURN 07/17/20 07:30 08/16/20 07:29 07/17/20 07:35 Magnesium Oxide (Mag-Ox 400mg) 400 mg BID ORAL 07/17/20 09:00 08/16/20 08:59 07/21/20 08:27 Metformin HCl (Glucophage) 500 mg BIAC ORAL 07/17/20 06:30 08/16/20 06:29 07/21/20 06:13 Multivitamins (Multivitamins) 1 tab DAILY ORAL 07/17/20 09:00 08/16/20 08:59 07/21/20 08:29 Sennosides (Senokot) 8.6 mg DAILYPRN PRN ORAL Constipation 07/17/20 02:15 08/16/20 02:14 Assessment/Plan Assessment/Plan 1. History of DVT and pulmonary embolism. - continue Eliquis given no indication for acute surgical intervention per surgery and heme 2. Vaginal bleeding. - spotting now 3. Anemia. - on ferrous gluconate; IV iron if worsens 4. Lower extremity cellulitis - Wound care - no indication for acute surgical intervention per surgery - now off Vanco; started cefepime - Wound Cx-pseudomonas, staph aureus; pansensitive The care for this patient was discussed with my supervising physician Time spent for this case was approximately 31 minutes Mihir York Jul 21, 2020 09:26
[2020-07-21] MEDS: Albuterol/Ipratropium 3ml neb HHN PRN (10:55)
--- NOTE | 2020-07-21 11:13 | Internal Med Progress Note ---
Subjective Physician Name Nikki Wyatt Attending Physician Nikki Wyatt M.D. Current Medications Medications (Trade) Dose Ordered Sig/Key Route PRN Reason Start Time Stop Time Status Last Admin Dose Admin Acetaminophen (Tylenol) 650 mg Q6H PRN ORAL Mild Pain (Pain Scale 1-3) 07/17/20 02:15 08/16/20 02:14 07/17/20 11:50 Acetaminophen/ Hydrocodone Bitart ([place] 7.5/325) 1 tab Q4H PRN ORAL pain 4-10 07/17/20 02:15 07/24/20 02:14 Albuterol/ Ipratropium (Albuterol/ Ipratropium) 3 ml Q6HRT PRN HHN Shortness of Breath 07/17/20 02:15 07/22/20 02:14 07/21/20 10:55 Allopurinol (Zyloprim) 100 mg DAILY ORAL 07/17/20 09:00 08/16/20 08:59 07/21/20 08:28 Amlodipine Besylate (Norvasc) 5 mg DAILY ORAL 07/17/20 09:00 08/16/20 08:59 07/21/20 08:28 Apixaban (Eliquis) 2.5 mg BID ORAL 07/18/20 18:00 10/16/20 17:59 07/21/20 08:28 Cefepime HCl 1 gm/ Dextrose 55 ml @ 110 mls/hr Q12H IVPB 07/19/20 16:00 07/26/20 15:59 07/21/20 04:00 Chlorhexidine Gluconate (Priti-Hex 2%) 1 applic DAILY@2000 TOPIC 07/19/20 20:00 10/17/20 19:59 07/20/20 20:11 Dextrose (Dextrose 50%) 25 ml Q30M PRN IV Hypoglycemia 07/17/20 01:30 10/15/20 01:29 Dextrose (Dextrose 50%) 50 ml Q30M PRN IV Hypoglycemia 07/17/20 01:30 10/15/20 01:29 Docusate Sodium (Colace) 100 mg DAILY ORAL 07/17/20 09:00 08/16/20 08:59 07/21/20 08:28 Famotidine (Pepcid) 40 mg DAILY ORAL 07/17/20 09:00 10/15/20 08:59 07/21/20 08:28 Ferrous Gluconate (Fergon) 324 mg BID ORAL 07/17/20 18:00 10/15/20 17:59 07/21/20 08:28 Furosemide (Lasix) 40 mg DAILY ORAL 07/17/20 09:00 08/16/20 08:59 07/21/20 08:29 Gabapentin (Neurontin) 100 mg Q12H PRN ORAL NEUROPATHIC PAIN 07/17/20 02:15 08/16/20 02:14 Hydromorphone HCl (Dilaudid) 0.5 mg Q4H PRN IVP For Pain 07/17/20 13:30 07/24/20 13:29 07/21/20 10:04 Magnesium Hydroxide (Mom) 10 ml Q6H PRN ORAL HEARTBURN 07/17/20 07:30 08/16/20 07:29 07/17/20 07:35 Magnesium Oxide (Mag-Ox 400mg) 400 mg BID ORAL 07/17/20 09:00 08/16/20 08:59 07/21/20 08:27 Metformin HCl (Glucophage) 500 mg BIAC ORAL 07/17/20 06:30 08/16/20 06:29 07/21/20 06:13 Multivitamins (Multivitamins) 1 tab DAILY ORAL 07/17/20 09:00 08/16/20 08:59 07/21/20 08:29 Sennosides (Senokot) 8.6 mg DAILYPRN PRN ORAL Constipation 07/17/20 02:15 08/16/20 02:14 Allergies: Coded Allergies: SULFA (SULFONAMIDE ANTIBIOTICS) (Unverified Allergy, Unknown, 05/02/15) allergy history per Dr. Robert BAUER Limited/Unobtainable: No Constitutional: Reports: weakness HEENT: Denies: no symptoms, eye pain, blurred vision, tearing, double vision, ear pain, ear discharge, nose pain, nose congestion, throat pain, throat swelling, mouth pain, mouth swelling, other Cardiovascular: Denies: no symptoms, chest pain, edema, irregular heart rate, lightheadedness, palpitations, syncope, other Gastrointestinal/Abdominal: Reports: abdominal pain Subjective complains of abd pain today remains on cefepime Objective Last Vital Signs Date Time Temp Pulse Resp B/P (MAP) Pulse Ox O2 Delivery O2 Flow Rate FiO2 07/21/20 08:28 94 137/84 07/21/20 08:00 98.2 20 97 07/20/20 21:07 Room Air Laboratory Tests Test 07/20/20 11:58 07/20/20 17:10 07/21/20 04:30 POC Whole Blood Glucose 126 MG/DL (74-106) H 144 MG/DL (74-106) H White Blood Count 12.8 K/UL (4.8-10.8) H Red Blood Count 4.08 M/UL (4.20-5.40) L Hemoglobin 10.2 G/DL (12.0-16.0) L Hematocrit 34.4 % (37.0-47.0) L Mean Corpuscular Volume 84 FL (80-99) Mean Corpuscular Hemoglobin 24.9 PG (27.0-31.0) L Mean Corpuscular Hemoglobin Concent 29.5 G/DL (32.0-36.0) L Red Cell Distribution Width 18.0 % (11.6-14.8) H Platelet Count 228 K/UL (150-450) Mean Platelet Volume 7.1 FL (6.5-10.1) Neutrophils (%) (Auto) 80.9 % (45.0-75.0) H Lymphocytes (%) (Auto) 9.5 % (20.0-45.0) L Monocytes (%) (Auto) 5.6 % (1.0-10.0) Eosinophils (%) (Auto) 2.5 % (0.0-3.0) Basophils (%) (Auto) 1.4 % (0.0-2.0) Sodium Level 140 MMOL/L (136-145) Potassium Level 3.9 MMOL/L (3.5-5.1) Chloride Level 103 MMOL/L (98-107) Carbon Dioxide Level 32 MMOL/L (21-32) Anion Gap 5 mmol/L (5-15) Blood Urea Nitrogen 16 mg/dL (7-18) Creatinine 0.8 MG/DL (0.55-1.30) Estimat Glomerular Filtration Rate > 60 mL/min (>60) Glucose Level 108 MG/DL (74-106) H Calcium Level 8.5 MG/DL (8.5-10.1) Total Bilirubin 0.2 MG/DL (0.2-1.0) Aspartate Amino Transf (AST/SGOT) 17 U/L (15-37) Alanine Aminotransferase (ALT/SGPT) 17 U/L (12-78) Alkaline Phosphatase 81 U/L (46-116) Total Protein 7.5 G/DL (6.4-8.2) Albumin 2.8 G/DL (3.4-5.0) L Globulin 4.7 g/dL Albumin/Globulin Ratio 0.6 (1.0-2.7) L Microbiology Date/Time Source Procedure Growth Status 07/21/20 10:20 Nasopharynx SARS-CoV-2 Antigen (Rapid)(SINDY) - Final Complete Intake and Output 07/20/20 07/21/20 19:00 07:00 Intake Total 650 ml Balance 650 ml Other 650 ml # Voids 2 Objective General appearance: alert, cooperative, no distress, appears stated age Head: Normocephalic, without obvious abnormality, atraumatic Eyes: conjunctivae/corneas clear. PERRL, EOM's intact. Fundi benign Throat: Lips, mucosa, and tongue normal. Teeth and gums normal Neck: supple, symmetrical, trachea midline, no adenopathy, thyroid: not enlarg ed, symmetric, no tenderness/mass/nodules, no carotid bruit and no JVD Lungs: clear to auscultation bilaterally Heart: regular rate and rhythm, S1, S2 normal, no murmur, click, rub or gallop Abdomen: soft, non-tender. Bowel sounds normal. No masses, no organomegaly Extremities: + ulcers on bilateral lower extremities Pulses: 2+ and symmetric Skin: Skin color, texture, turgor normal. No rashes or lesions Neurologic: Grossly normal Assessment/Plan Assessment/Plan #Bleeding from [place] #vaginal bleeding? #h/o DVT/PE #HTN #LE cellulitis #obesity - admit inpatient - ID eval - pulm eval - resume apixaban when bleeding r/oed - monitor hemoglobin - IV antibiotic per ID - amlodipine 5mg daily - laix 40 daily - monitor lytes - wound care - gen surg Nikki Major M.D. Jul 21, 2020 11:13
--- NOTE | 2020-07-21 11:14 | NUR ---
NURSE NOTES: Patient's rapid covid test came out negative and patient received respiratory treatment.
[2020-07-21 12:00] VITALS: BP 124/78
--- NOTE | 2020-07-21 13:47 | Infectious Diseases Prog Note ---
Assessment/Plan Assessment/Plan IMPRESSION: Left leg cellulitis. -gram positive & pseudomonas in culture Morbid obesity, Hypertension, Diabetes mellitus, Stasis dermatitis, Anemia, Gout. RECOMMENDATION: Discontinue Cefepime Can be discharged with PO Levaquin & Doxycycline We will follow up the cultures. Case was D/W primary MD Subjective ROS Limited/Unobtainable: No Constitutional: Reports: no symptoms Gastrointestinal/Abdominal: Reports: no symptoms Skin: Reports: ulcer, other - pain & discharge from left leg Allergies: Coded Allergies: SULFA (SULFONAMIDE ANTIBIOTICS) (Unverified Allergy, Unknown, 05/02/15) allergy history per Dr. Jones Objective Last 24 Hour Vital Signs Date Time Temp Pulse Resp B/P (MAP) Pulse Ox O2 Delivery O2 Flow Rate FiO2 07/21/20 12:00 97.9 92 20 124/78 (93) 98 07/21/20 10:34 98.2 07/21/20 09:00 Room Air 07/21/20 08:28 94 137/84 07/21/20 08:00 98.2 94 20 137/84 (101) 97 07/21/20 03:20 97.7 07/21/20 00:00 97.7 69 20 108/64 (79) 96 07/20/20 22:46 97.1 07/20/20 21:07 Room Air 07/20/20 20:00 97.3 89 19 113/72 (86) 96 07/20/20 18:05 97.1 07/20/20 15:47 97.1 97 19 114/85 (95) 96 Height (Feet): 6 Height (Inches): 1.00 Weight (Pounds): 420 HEENT: mucous membranes moist Respiratory/Chest: lungs clear Cardiovascular: normal rate, other - PICC line Abdomen: soft, non tender Extremities: other - bilateral legs edema Skin: ulcers, other - left leg Neurologic/Psychiatric: alert, responsive Microbiology Date/Time Source Procedure Growth Status 07/21/20 10:20 Nasopharynx SARS-CoV-2 Antigen (Rapid)(SINDY) - Final Complete Laboratory Tests Test 07/20/20 17:10 07/21/20 04:30 07/21/20 13:14 POC Whole Blood Glucose 144 MG/DL (74-106) H 135 MG/DL (74-106) H White Blood Count 12.8 K/UL (4.8-10.8) H Red Blood Count 4.08 M/UL (4.20-5.40) L Hemoglobin 10.2 G/DL (12.0-16.0) L Hematocrit 34.4 % (37.0-47.0) L Mean Corpuscular Volume 84 FL (80-99) Mean Corpuscular Hemoglobin 24.9 PG (27.0-31.0) L Mean Corpuscular Hemoglobin Concent 29.5 G/DL (32.0-36.0) L Red Cell Distribution Width 18.0 % (11.6-14.8) H Platelet Count 228 K/UL (150-450) Mean Platelet Volume 7.1 FL (6.5-10.1) Neutrophils (%) (Auto) 80.9 % (45.0-75.0) H Lymphocytes (%) (Auto) 9.5 % (20.0-45.0) L Monocytes (%) (Auto) 5.6 % (1.0-10.0) Eosinophils (%) (Auto) 2.5 % (0.0-3.0) Basophils (%) (Auto) 1.4 % (0.0-2.0) Sodium Level 140 MMOL/L (136-145) Potassium Level 3.9 MMOL/L (3.5-5.1) Chloride Level 103 MMOL/L (98-107) Carbon Dioxide Level 32 MMOL/L (21-32) Anion Gap 5 mmol/L (5-15) Blood Urea Nitrogen 16 mg/dL (7-18) Creatinine 0.8 MG/DL (0.55-1.30) Estimat Glomerular Filtration Rate > 60 mL/min (>60) Glucose Level 108 MG/DL (74-106) H Calcium Level 8.5 MG/DL (8.5-10.1) Total Bilirubin 0.2 MG/DL (0.2-1.0) Aspartate Amino Transf (AST/SGOT) 17 U/L (15-37) Alanine Aminotransferase (ALT/SGPT) 17 U/L (12-78) Alkaline Phosphatase 81 U/L (46-116) Total Protein 7.5 G/DL (6.4-8.2) Albumin 2.8 G/DL (3.4-5.0) L Globulin 4.7 g/dL Albumin/Globulin Ratio 0.6 (1.0-2.7) L Current Medications Medications (Trade) Dose Ordered Sig/Key Route PRN Reason Start Time Stop Time Status Last Admin Dose Admin Acetaminophen (Tylenol) 650 mg Q6H PRN ORAL Mild Pain (Pain Scale 1-3) 07/17/20 02:15 08/16/20 02:14 07/17/20 11:50 Acetaminophen/ Hydrocodone Bitart ([place] 7.5/325) 1 tab Q4H PRN ORAL pain 4-10 07/17/20 02:15 07/24/20 02:14 Albuterol/ Ipratropium (Albuterol/ Ipratropium) 3 ml Q6HRT PRN HHN Shortness of Breath 07/17/20 02:15 07/22/20 02:14 07/21/20 10:55 Allopurinol (Zyloprim) 100 mg DAILY ORAL 07/17/20 09:00 08/16/20 08:59 07/21/20 08:28 Amlodipine Besylate (Norvasc) 5 mg DAILY ORAL 07/17/20 09:00 08/16/20 08:59 07/21/20 08:28 Apixaban (Eliquis) 2.5 mg BID ORAL 07/18/20 18:00 10/16/20 17:59 07/21/20 08:28 Cefepime HCl 1 gm/ Dextrose 55 ml @ 110 mls/hr Q12H IVPB 07/19/20 16:00 07/26/20 15:59 07/21/20 04:00 Chlorhexidine Gluconate (Priti-Hex 2%) 1 applic DAILY@2000 TOPIC 07/19/20 20:00 10/17/20 19:59 07/20/20 20:11 Dextrose (Dextrose 50%) 25 ml Q30M PRN IV Hypoglycemia 07/17/20 01:30 10/15/20 01:29 Dextrose (Dextrose 50%) 50 ml Q30M PRN IV Hypoglycemia 07/17/20 01:30 10/15/20 01:29 Docusate Sodium (Colace) 100 mg DAILY ORAL 07/17/20 09:00 08/16/20 08:59 07/21/20 08:28 Famotidine (Pepcid) 40 mg DAILY ORAL 07/17/20 09:00 10/15/20 08:59 07/21/20 08:28 Ferrous Gluconate (Fergon) 324 mg BID ORAL 07/17/20 18:00 10/15/20 17:59 07/21/20 08:28 Furosemide (Lasix) 40 mg DAILY ORAL 07/17/20 09:00 08/16/20 08:59 07/21/20 08:29 Gabapentin (Neurontin) 100 mg Q12H PRN ORAL NEUROPATHIC PAIN 07/17/20 02:15 08/16/20 02:14 Hydromorphone HCl (Dilaudid) 0.5 mg Q4H PRN IVP For Pain 07/17/20 13:30 07/24/20 13:29 07/21/20 10:04 Magnesium Hydroxide (Mom) 10 ml Q6H PRN ORAL HEARTBURN 07/17/20 07:30 08/16/20 07:29 07/17/20 07:35 Magnesium Oxide (Mag-Ox 400mg) 400 mg BID ORAL 07/17/20 09:00 08/16/20 08:59 07/21/20 08:27 Metformin HCl (Glucophage) 500 mg BIAC ORAL 07/17/20 06:30 08/16/20 06:29 07/21/20 06:13 Multivitamins (Multivitamins) 1 tab DAILY ORAL 07/17/20 09:00 08/16/20 08:59 07/21/20 08:29 Sennosides (Senokot) 8.6 mg DAILYPRN PRN ORAL Constipation 07/17/20 02:15 08/16/20 02:14 Harrison Velasco MD Jul 21, 2020 13:47
[2020-07-21] MEDS ORDERED: Doxycycline Monohydrate 100mg ORAL SCH (14:00)
--- NOTE | 2020-07-21 14:04 | NUR ---
*-*DISCHARGE PLANNED*-* PATIENT HAS BEEN ACCEPTED AND WILL BE DISCHARGED TO: [facility] P: [phone] FOR NURSE TO NURSE REPORT ROOM# 45.[facility] TRANSPORTATION SET FOR 4PM S/W [place] X8888. PLACED A CALL TO PATIENTS SON , REFUGIO MITCHELL, NO ANSWER, LEFT VOICE MESSAGE IN REGARD TO DISCHARGE PLAN.
--- NOTE | 2020-07-21 14:18 | Surgery Progress Note ---
Surgery Progress Note Subjective Symptoms: improved, tolerating diet, voiding well, passing flatus Additional Comments c/o cramping constipation Objective Last 24 Hour Vital Signs Date Time Temp Pulse Resp B/P (MAP) Pulse Ox O2 Delivery O2 Flow Rate FiO2 07/21/20 12:00 97.9 92 20 124/78 (93) 98 07/21/20 10:34 98.2 07/21/20 09:00 Room Air 07/21/20 08:28 94 137/84 07/21/20 08:00 98.2 94 20 137/84 (101) 97 07/21/20 03:20 97.7 07/21/20 00:00 97.7 69 20 108/64 (79) 96 07/20/20 22:46 97.1 07/20/20 21:07 Room Air 07/20/20 20:00 97.3 89 19 113/72 (86) 96 07/20/20 18:05 97.1 07/20/20 15:47 97.1 97 19 114/85 (95) 96 I&O Intake and Output 07/20/20 07/21/20 19:00 07:00 Intake Total 650 ml Balance 650 ml Other 650 ml # Voids 2 Dressing: saturated Wound: clean Cardiovascular: RSR Respiratory: clear Abdomen: soft, flat, non-tender, present bowel sounds, non-distended Extremities: edema, no tenderness, no cyanosis Laboratory Tests Test 07/20/20 17:10 07/21/20 04:30 07/21/20 13:14 POC Whole Blood Glucose 144 MG/DL (74-106) H 135 MG/DL (74-106) H White Blood Count 12.8 K/UL (4.8-10.8) H Red Blood Count 4.08 M/UL (4.20-5.40) L Hemoglobin 10.2 G/DL (12.0-16.0) L Hematocrit 34.4 % (37.0-47.0) L Mean Corpuscular Volume 84 FL (80-99) Mean Corpuscular Hemoglobin 24.9 PG (27.0-31.0) L Mean Corpuscular Hemoglobin Concent 29.5 G/DL (32.0-36.0) L Red Cell Distribution Width 18.0 % (11.6-14.8) H Platelet Count 228 K/UL (150-450) Mean Platelet Volume 7.1 FL (6.5-10.1) Neutrophils (%) (Auto) 80.9 % (45.0-75.0) H Lymphocytes (%) (Auto) 9.5 % (20.0-45.0) L Monocytes (%) (Auto) 5.6 % (1.0-10.0) Eosinophils (%) (Auto) 2.5 % (0.0-3.0) Basophils (%) (Auto) 1.4 % (0.0-2.0) Sodium Level 140 MMOL/L (136-145) Potassium Level 3.9 MMOL/L (3.5-5.1) Chloride Level 103 MMOL/L (98-107) Carbon Dioxide Level 32 MMOL/L (21-32) Anion Gap 5 mmol/L (5-15) Blood Urea Nitrogen 16 mg/dL (7-18) Creatinine 0.8 MG/DL (0.55-1.30) Estimat Glomerular Filtration Rate > 60 mL/min (>60) Glucose Level 108 MG/DL (74-106) H Calcium Level 8.5 MG/DL (8.5-10.1) Total Bilirubin 0.2 MG/DL (0.2-1.0) Aspartate Amino Transf (AST/SGOT) 17 U/L (15-37) Alanine Aminotransferase (ALT/SGPT) 17 U/L (12-78) Alkaline Phosphatase 81 U/L (46-116) Total Protein 7.5 G/DL (6.4-8.2) Albumin 2.8 G/DL (3.4-5.0) L Globulin 4.7 g/dL Albumin/Globulin Ratio 0.6 (1.0-2.7) L Plan Problems: (1) Morbid obesity (2) Acute cholecystitis (3) Acute cholecystitis (4) Hypokalemia (5) Hypokalemia (6) Atypical psychosis (7) Acute blood loss anemia (8) Thrush (9) Gout (10) Morbid obesity (11) Anemia (12) Back pain (13) Cellulitis Assessment & Plan: 59-year-old female chronic lower extremity edema cellulitis bilateral prior currently bilateral edema but cellulitis on the left side. Lateral aspect distal small skin partial-thickness abrasion 1 cm x 1 cm identified. Warm difficult to check pulses given size of the extremity overall morbidly obese BMI 55. No abscess identified no fluid collections identified generalized edema and cellulitis noted. No acute surgical intervention planned at this time. Arterial and venous duplexes will be ordered. Okay for diet. Keep bilateral lower extremities elevated while in bed. Activity as tolerated. Wash left lower extremity foot and ankle with normal saline. Apply Thera honey cover with Xeroform ABD and wrap with gauze. Daily and as needed. Antibiotics per infectious disease. Will follow with recommendations. Thank you for letting participate patient's care (14) Cough (15) Diarrhea (16) SOB (shortness of breath) (17) Flank pain (18) Leukocytosis (19) Leukocytosis (20) Post-menopausal bleeding (21) Vaginal bleeding (22) Hypoalbuminemia (23) Sepsis (24) Rectal bleeding (25) Venous stasis (26) Hypertension (27) Pneumonitis (28) Obesity (29) HTN (hypertension) (30) Chronic pain (31) Muscle ache (32) Cellulitis, leg (33) Cellulitis, leg (34) Clostridium difficile colitis (35) ACS (acute coronary syndrome) (36) Abnormal laboratory test result (37) Diabetes type 2, controlled (38) Factor V Leiden (39) Shoulder pain, right (40) Cellulitis of right leg (41) Cellulitis of right leg (42) BMI 60.0-69.9, adult (43) Chronic wound of extremity (44) Flank pain, acute (45) Injury of lower extremity (46) Left leg cellulitis (47) Left leg cellulitis (48) Factor 5 Leiden mutation, heterozygous (49) DVT, bilateral lower limbs (50) Elevated lactic acid level (51) Bilateral cellulitis of lower leg (52) Bilateral lower leg cellulitis (53) Poor intravenous access (54) DVT, recurrent, lower extremity, acute and chronic (55) Deep vein thrombosis (DVT) of left lower extremity (56) COVID-19 ruled out by laboratory testing (57) Acute DVT of LLE (58) lives on own at home (59) lateral posterior left leg superficial skin breakdown ulcer (60) abdominal wall swelling (61) leg pain (62) probable abscess Chuy Damian Jul 21, 2020 14:18
[2020-07-21] MEDS ORDERED: DOXYCYCLINE MO100 MG ORAL (15:48)
[2020-07-21] MEDS ORDERED: LEVOFLOXACIN750 MG ORAL (15:49)
[2020-07-21 16:00] VITALS: BP 140/88
--- NOTE | 2020-07-21 16:31 | NUR ---
NURSE NOTES: Patient is discharged to [facility]. Patient was transported on a gurney with help of 4 ambulance personnels. Vitals stable, [id number], denies respiratory distress or pain. Charge nurse Flako removed PICC line as ordered. Site is asymptomatic. Belongings verified with the patient and signed. All the belongings were sent with the patient. Patient states she left a powered chair at [facility] months ago from a previous visit. Charge nurse Flako called [facility] and she said she will send it to the facility if found. RN [facility].
[2020-07-22] MEDS ORDERED: Levofloxacin 750mg tab ORAL SCH (09:00)
--- NOTE | 2020-07-22 12:15 | Discharge Summary ---
Discharge Summary Discharge Summary _ Date of admission: 07/16/2020 Date of discharge: 07/21/[address] Wyatt History of Present Illness and Brief Hospital Course Ms. 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 Her wound culture grew out E. coli and staph aureus in the past. Patient was started on Zosyn and vancomycin. Patient's Eliquis was temporarily stopped given the bleeding from the PICC line. Patient was admitted to the hospital for further management. Her wound culture grew Pseudomonas aeruginosa, and staph aureus MRSA. Her antibiotics were adjusted accordingly. No abscess was identified on physical exam. No acute surgical intervention was planned at this time. The venous duplex of legs was negative for DVT. Wound care was in place. Patient was found to be anemic on laboratory studies. Patient was started on ferrous gluconate. Throughout her hospitalization, patient was treated for the cellulitis. Vaginal bleeding was stopped during her hospitalization. Eliquis was restarted given history of recurrent DVT and PE. Patient was medically stable for discharge and was [facility] to [facility]. Consultants: Pulmonology Dr. Gupta Surgery Dr. Damian Infectious disease Dr. Velasco Hematology oncology Dr. Rodríguez Discharge Condition Improved and stable Discharge Activity As tolerated Discharge Diet No sodium added diet Final diagnoses History of DVT of the left lower extremity popliteal vein Anemia of iron deficiency Leukocytosis Vaginal bleeding Hypokalemia Left lower extremity cellulitis, gram-positive and Pseudomonas in culture Morbid obesity Hypertension Diabetes mellitus Stasis dermatitis History of gout History of DVT/PE I have been assigned to dictate discharge summary for this account. Mihir York Jul 22, 2020 12:15
== END 2020-07-21 16:40 | DRG 315 ==
LOC: EDBD 23:03 → EMR 23:19 → 4E 23:32 → EDBEDREQ 07-17 00:24
DX: T82.838A Hemorrhage due to vascular prosthetic devices, implants and grafts, initial encounter (principal); L03.116 Cellulitis of left lower limb; Z68.43 Body mass index [BMI] 50.0-59.9, adult; L97.321 Non-pressure chronic ulcer of left ankle limited to breakdown of skin; I27.82 Chronic pulmonary embolism; I82.532 Chronic embolism and thrombosis of left popliteal vein; Y84.8 Other medical procedures as the cause of abnormal reaction of the patient, or of later complication, without mention of misadventure at the time of the procedure; B96.5 Pseudomonas (aeruginosa) (mallei) (pseudomallei) as the cause of diseases classified elsewhere; E66.01 Morbid (severe) obesity due to excess calories; Z88.2 Allergy status to sulfonamides; N93.9 Abnormal uterine and vaginal bleeding, unspecified; E11.9 Type 2 diabetes mellitus without complications; I87.2 Venous insufficiency (chronic) (peripheral); M10.9 Gout, unspecified; Z86.73 Personal history of transient ischemic attack (TIA), and cerebral infarction without residual deficits; Z79.84 Long term (current) use of oral hypoglycemic drugs; D50.9 Iron deficiency anemia, unspecified; Z79.01 Long term (current) use of anticoagulants; E87.6 Hypokalemia
CPT/HCPCS: 36415; 36569; 76937; 80048; 80053; 80202; 82728; 82962; 83735; 84100; 85025; 85610; 85730; 87070; 87181; 87205; 93970; 94640; 99285; J7620; J8499